=== PATIENT | male | born 1930 | race Caucasian/White ===

== ENCOUNTER → 2016-11-02 | Outpatient (CLI) | payer MEDICARE, BC ==
--- NOTE | 2016-11-02 15:44 | XR ---
EXAMINATION TYPE: XR chest 2V DATE OF EXAM: 11/02/2016 3:38 PM COMPARISON: 05/23/2016 TECHNIQUE: PA and lateral views submitted. HISTORY: Cough and wheezing FINDINGS: The lungs are clear and there is no pneumothorax, pleural effusion, or focal pneumonia. Granuloma wi thin the right upper lobe noted. Postsurgical change and cardiac device stable. Arthropathy of the sh oulders noted. Degenerative change and hypertrophic change of the spine. IMPRESSION: 1. No acute process.
== END ==
LOC: RADXRMAIN 15:16
PROVIDERS: ATTEND Family Medicine
DX: R06.00 Dyspnea, unspecified (principal)
CPT/HCPCS: 71020

== ENCOUNTER → 2016-11-30 | Outpatient (CLI) | payer MEDICARE, BC ==
--- NOTE | 2016-11-30 20:57 | US ---
EXAMINATION TYPE: US kidneys/renal and bladder DATE OF EXAM: 11/30/2016 4:38 PM COMPARISON: NONE CLINICAL HISTORY: N18.2 CHRONIC KIDNEY DISEASE. Chronic kidney disease, pt has no other complaints at this time EXAM MEASUREMENTS: Right Kidney: 9.0 x 4.1 x 3.9 cm Left Kidney: 9.0 x 3.7 x 3.8 cm Right Kidney there is cortical thinning with no evidence of hydronephrosis or nephrolithiasis. Stable 1.6 cm right renal cyst noted. Left Kidney: Cortical thinning with no evidence of hydronephrosis or nephrolithiasis. Bladder is anechoic. No definite wall thickening. Renal cortex is somewhat increased in echotexture. IMPRESSION: Correlate for chronic medical renal disease.
== END | disposition home or self-care (01) ==
LOC: RADUSWWP 16:21
PROVIDERS: ATTEND Internal Medicine Nephrology
DX: N18.2 Chronic kidney disease, stage 2 (mild) (principal)
CPT/HCPCS: 76770

== ENCOUNTER → 2017-04-05 | Outpatient (CLI) | payer MEDICARE, BC ==
--- NOTE | 2017-04-05 17:43 | CT ---
EXAMINATION TYPE: CT angio chest DATE OF EXAM: 04/05/2017 5:35 PM COMPARISON: 04/07/2013 HISTORY: Left sided chest pain. CT DLP: 543.00 mGycm Automated exposure control for dose reduction was used. CONTRAST: CTA scan of the thorax is performed with IV Contrast, patient injected with 65 mL of Visipaque 320, p ulmonary embolism protocol. There are 3-D post processed images. FINDINGS: There is irregular pleural thickening at the lung bases. There is extensive interstitial infiltrate in the mid and lower lung trujillo. There is no evidence of a pulmonary mass. There is a 1 cm calcified granuloma in the right right lower lobe. I see no filling defects in the pulmonary arteries. Thoracic aorta is atheromatous. There is aneurysm of the ascending aorta that measures 4.6 cm. There is no sign of dissection. There are no hilar masses. There is no mediastinal adenopathy.. There is s purring in the thoracic spine with kyphotic deformity. IMPRESSION: NO EVIDENCE OF PULMONARY EMBOLISM. EXTENSIVE PULMONARY FIBROTIC CHANGES. THORACIC AORTIC ANEURYSM. NO SIGNIFICANT CHANGE COMPARED TO OLD EXAM.
== END | disposition home or self-care (01) ==
LOC: RADCTMAIN 15:59
PROVIDERS: ATTEND Family Medicine
DX: J84.10 Pulmonary fibrosis, unspecified (principal); I71.2 Thoracic aortic aneurysm, without rupture
CPT/HCPCS: 82565; 84520; 71275; 36415; Q9967

== ENCOUNTER 2017-07-24 13:36 | Emergency (ER) | payer MEDICARE, BC ==
[2017-07-24] MEDS ORDERED: methylPREDNISolone SOD SUCCI 125 MG/2 ML VIAL IV STA (14:29)
[2017-07-24] MEDS ORDERED: ALBUTEROL NEBULIZED 2.5 MG/3 ML INHALATION STA (14:29)
[2017-07-24] MEDS ORDERED: IPRATROPIUM 0.5 MG/2.5 ML NEBU INHALATION STA (14:29)
--- NOTE | 2017-07-24 14:31 | ED ---
General Adult HPI - General Chief complaint: Shortness of Breath Stated complaint: SOB/cough Time Seen by Provider: 07/24/17 13:45 Source: patient, RN notes reviewed Mode of arrival: wheelchair Limitations: no limitations - History of Present Illness Initial comments: 86 yo with male history of CHF, COPD, CAD status post bypass and implantable defibrillator presents with 4 days of worsening cough and dyspnea. Patient denies central chest pain. States he occasionally has pain over his pacemaker site. No radiating chest pain. Patient denies significant lower extremity swelling. Denies any change in his medications. Denies fever. States his cough is occasionally productive of white sputum. - Related Data Home Medications Medication Instructions Recorded Confirmed Loratadine [Claritin] 10 mg PO DAILY 03/28/14 07/24/17 Magnesium Chloride [Slow-Mag] 64 mg PO HS 03/28/14 07/24/17 Montelukast [Singulair] 10 mg PO HS 03/28/14 07/24/17 Simvastatin [Zocor] 20 mg PO HS 03/28/14 07/24/17 Terazosin [Hytrin] 2 mg PO HS 03/28/14 07/24/17 Rivaroxaban [Xarelto] 15 mg PO DAILY@1300 12/26/14 07/24/17 Omeprazole [PriLOSEC] 20 mg PO AC-BRKFST 12/30/14 07/24/17 Cholecalciferol [Vitamin D3] 1,000 unit PO DAILY 07/24/17 07/24/17 Febuxostat [Uloric] 40 mg PO DAILY 07/24/17 07/24/17 Finasteride [Proscar] 5 mg PO DAILY 07/24/17 07/24/17 Metoprolol Succinate [Toprol XL] 50 mg PO BID 07/24/17 07/24/17 Spironolactone [Aldactone] 12.5 mg PO DAILY 07/24/17 07/24/17 Tamsulosin HCl [Flomax] 0.4 mg PO BID 07/24/17 07/24/17 Previous Rx's Medication Instructions Recorded Albuterol Inhaler [Ventolin Hfa 1 - 2 puff INHALATION Q4HR PRN #1 07/24/17 Inhaler] inhaler Azithromycin [Zithromax Z-pack] 0 mg PO DIRECTED #6 tab 07/24/17 predniSONE 50 mg PO DAILY #5 tab 07/24/17 Allergies Allergy/AdvReac Type Severity Reaction Status Date / Time No Known Allergies Allergy Verified 07/24/17 14:47 Review of Systems ROS Statement: Those systems with pertinent positive or pertinent negative responses have been documented in the HPI. ROS Other: All systems not noted in ROS Statement are negative. Past Medical History Past Medical History: Atrial Fibrillation, Coronary Artery Disease (CAD), Chest Pain / Angina, COPD, GERD/Reflux, Hearing Disorder / Deafness, Hyperlipidemia, Hypertension, Myocardial Infarction (ID), Pneumonia, Renal Disease, Sleep Apnea/ CPAP/BIPAP Additional Past Medical History / Comment(s): RENAL INSUFFICIENCY, TURNED IN 24HR URINE TODAY; OCC INCONT OF URINE; GOUT; LLE EDEMA - WEARS COMPRESSION STOCKINGS SINCE CAGB; LT Ear Growth Drained by Dr 11/2014. UNABLE TO USE CPAP MASK. BRUISES EASILY. PNEUMONIA 11/2014, CURRENTLY HAS A CONGESTED COUGH, INSTRUCTED TO CALL [facility] TO NOTIFY DR ROCKWELL TODAY. HAS PARATHYROID ADENOMA. AICD - [facility], REPROGRAMMED 11/30/14. Last Myocardial Infarction Date:: 2001 History of Any Multi-Drug Resistant Organisms: None Reported Past Surgical History: AICD, Coronary Bypass/CABG, Heart Catheterization With Stent, Hernia Repair, Orthopedic Surgery, Pacemaker Additional Past Surgical History / Comment(s): 4 Vessel CABG 2002. STENT 2001. HAS PINS IN RT ACHILLES. AICD/PACEMAKER, [facility]. Past Anesthesia/Blood Transfusion Reactions: No Reported Reaction Date of Last Stent Placement:: UNK Type of Cardiac Device: Permanent Pacemaker, AICD Device Placement Date:: 2007 Past Psychological History: No Psychological Hx Reported Smoking Status: Never smoker Past Alcohol Use History: None Reported Past Drug Use History: None Reported - Past Family History Father Family Medical History: Congestive Heart Failure (CHF), Diabetes Mellitus Additional Family Medical History / Comment(s): AT AGEG 66 FROM CHF Mother Family Medical History: COPD Additional Family Medical History / Comment(s): AT AGE FROM ANEURYSM Sister(s) Family Medical History: Cancer General Exam Limitations: no limitations General appearance: alert, in no apparent distress Head exam: Present: atraumatic, normocephalic Eye exam: Present: normal appearance, PERRL ENT exam: Present: normal exam Neck exam: Present: normal inspection. Absent: tenderness, meningismus Respiratory exam: Present: wheezes, prolonged expiratory. Absent: respiratory distress, rhonchi Cardiovascular Exam: Present: normal rhythm, bradycardia GI/Abdominal exam: Present: soft. Absent: distended, tenderness Extremities exam: Present: normal inspection. Absent: pedal edema Back exam: Present: normal inspection, full ROM Neurological exam: Present: alert, oriented X3. Absent: motor sensory deficit Psychiatric exam: Present: normal affect, normal mood Skin exam: Present: warm, dry, intact. Absent: cyanosis, diaphoretic Course Vital Signs 07/24/17 07/24/17 07/24/17 13:41 14:51 15:14 Temperature 99.0 F Pulse Rate 54 L 50 L 50 L Respiratory 22 Rate Blood Pressure 111/59 O2 Sat by Pulse 94 L Oximetry - Reevaluation(s) Reevaluation #1: 07/24/17 16:34 On reevaluation, patient is feeling better, cough improved. EKG Findings - EKG Comments: EKG Findings:: EKG shows atrial paced rhythm, left axis deviation, ventricular rate of 50, NV interval 196, QRS duration 120, QTC 410, no signs of ischemia Medical Decision Making - Medical Decision Making 86-year-old man with history of COPD, CAD status post CABG, and CKD presents with cough and dyspnea. Patient also states he's had a runny nose. On examination patient has diffuse end expiratory wheeze. Good air entry. Patient is given albuterol, Atrovent and steroids in emergency department. On reevaluation he is feeling better. Oxygenation saturation 95% on room air. Chest x-ray shows COPD, no focal pneumonia. White blood cell count 10.1 which is normal. Hemoglobin stable at 13.4. Potassium is borderline high at 5.2, although the patient has had borderline hyperkalemia for some time. Creatinine 1.93, AB baseline. EKG is nonischemic. Case is discussed with the patient's primary care physician Dr. Yadav. He is able to the patient on Wednesday for close follow-up. Patient is offered observation for continued treatment of COPD , patient Clines, stating he wishes to go home and follow-up with his primary care physician. - Lab Data Result diagrams: 07/24/17 14:00 07/24/17 14:00 Lab Results 07/24/17 07/24/17 07/24/17 Range/Units 14:00 14:00 14:00 WBC 10.1 (3.8-10.6) k/uL RBC 4.41 (4.30-5.90) m/uL Hgb 13.4 (13.0-17.5) gm/dL Hct 41.9 (39.0-53.0) % MCV 94.9 (80.0-100.0) fL MCH 30.3 (25.0-35.0) pg MCHC 31.9 (31.0-37.0) g/dL RDW 15.3 (11.5-15.5) % Plt Count 143 L (150-450) k/uL Neutrophils % 75 % Lymphocytes % 15 % Monocytes % 6 % Eosinophils % 2 % Basophils % 0 % Neutrophils # 7.6 (1.3-7.7) k/uL Lymphocytes # 1.6 (1.0-4.8) k/uL Monocytes # 0.6 (0-1.0) k/uL Eosinophils # 0.2 (0-0.7) k/uL Basophils # 0.0 (0-0.2) k/uL PT (9.0-12.0) sec INR (<1.2) APTT (22.0-30.0) sec Sodium 143 (137-145) mmol/L Potassium 5.2 H (3.5-5.1) mmol/L Chloride 112 H (98-107) mmol/L Carbon Dioxide 18 L (22-30) mmol/L Anion Gap 13 mmol/L BUN 45 H (9-20) mg/dL Creatinine 1.93 H (0.66-1.25) mg/dL Est GFR (MDRD) Af Amer 40 (>60 ml/min/1.73 sqM) Est GFR (MDRD) Non-Af 33 (>60 ml/min/1.73 sqM) Glucose 89 (74-99) mg/dL Calcium 9.4 (8.4-10.2) mg/dL Magnesium 1.9 (1.6-2.3) mg/dL Total Bilirubin 1.6 H (0.2-1.3) mg/dL AST 30 (17-59) U/L ALT 26 (21-72) U/L Alkaline Phosphatase 66 (38-126) U/L Total Creatine Kinase 227 H (55-170) U/L CK-MB (CK-2) 3.3 H* (0.0-2.4) ng/mL CK-MB (CK-2) Rel Index 1.5 Troponin I 0.042 H* (0.000-0.034) ng/mL NT-Pro-B Natriuret Pep pg/mL Total Protein 6.6 (6.3-8.2) g/dL Albumin 3.8 (3.5-5.0) g/dL 07/24/17 07/24/17 Range/Units 14:00 14:00 WBC (3.8-10.6) k/uL RBC (4.30-5.90) m/uL Hgb (13.0-17.5) gm/dL Hct (39.0-53.0) % MCV (80.0-100.0) fL MCH (25.0-35.0) pg MCHC (31.0-37.0) g/dL RDW (11.5-15.5) % Plt Count (150-450) k/uL Neutrophils % % Lymphocytes % % Monocytes % % Eosinophils % % Basophils % % Neutrophils # (1.3-7.7) k/uL Lymphocytes # (1.0-4.8) k/uL Monocytes # (0-1.0) k/uL Eosinophils # (0-0.7) k/uL Basophils # (0-0.2) k/uL PT 11.2 (9.0-12.0) sec INR 1.1 (<1.2) APTT 27.7 (22.0-30.0) sec Sodium (137-145) mmol/L Potassium (3.5-5.1) mmol/L Chloride (98-107) mmol/L Carbon Dioxide (22-30) mmol/L Anion Gap mmol/L BUN (9-20) mg/dL Creatinine (0.66-1.25) mg/dL Est GFR (MDRD) Af Amer (>60 ml/min/1.73 sqM) Est GFR (MDRD) Non-Af (>60 ml/min/1.73 sqM) Glucose (74-99) mg/dL Calcium (8.4-10.2) mg/dL Magnesium (1.6-2.3) mg/dL Total Bilirubin (0.2-1.3) mg/dL AST (17-59) U/L ALT (21-72) U/L Alkaline Phosphatase (38-126) U/L Total Creatine Kinase (55-170) U/L CK-MB (CK-2) (0.0-2.4) ng/mL CK-MB (CK-2) Rel Index Troponin I (0.000-0.034) ng/mL NT-Pro-B Natriuret Pep 1190 pg/mL Total Protein (6.3-8.2) g/dL Albumin (3.5-5.0) g/dL Disposition Clinical Impression: Acute exacerbation of chronic obstructive airways disease Disposition: HOME SELF-CARE Condition: Fair Instructions: COPD (Chronic Obstructive Pulmonary Disease) (ED) Additional Instructions: Please return to emergency department with worsening or changing symptoms Prescriptions: Albuterol Inhaler [Ventolin Hfa Inhaler] 1 - 2 puff INHALATION Q4HR PRN #1 inhaler PRN Reason: Shortness Of Breath Azithromycin [Zithromax Z-pack] 0 mg PO DIRECTED #6 tab predniSONE 50 mg PO DAILY #5 tab Referrals: Dg Yadav MD [Primary Care Provider] - 1-2 days Time of Disposition: 16:38
[2017-07-24 14:49] LABS: Basophils % (A) 0 %; CH 30.5; CHCM 32.4; Eosinophils # (A) 0.2 k/uL (0-0.7); Eosinophils % (A) 2 %; HCT 41.9 % (39.0-53.0); HDW 2.76; HGB 13.4 gm/dL (13.0-17.5); Luc # (Auto) 0.11; Luc % (Auto) 1; Lymphocytes # (A) 1.6 k/uL (1.0-4.8); Lymphocytes % (A) 15 %; MCH 30.3 pg (25.0-35.0); MCHC 31.9 g/dL (31.0-37.0); MCV 94.9 fL (80.0-100.0); Mean Platelet Volume 8.1; Monocytes # (A) 0.6 k/uL (0-1.0); Monocytes % (A) 6 %; Neutrophils # (A) 7.6 k/uL (1.3-7.7); Neutrophils % (A) 75 %; RBC 4.41 m/uL (4.30-5.90); RDW 15.3 % (11.5-15.5); WBC 10.1 k/uL (3.8-10.6); WBC (Perox) 9.87
[2017-07-24 15:00] LABS: INR 1.1 (<1.2); Partial Thromboplastin Time 27.7 sec (22.0-30.0); Prothrombin Time 11.2 sec (9.0-12.0)
[2017-07-24 15:04] LABS: Calcium 9.4 mg/dL (8.4-10.2); Magnesium 1.9 mg/dL (1.6-2.3); Potassium 5.2 mmol/L (3.5-5.1); Total Bilirubin 1.6 mg/dL (0.2-1.3); Total Protein 6.6 g/dL (6.3-8.2)
--- NOTE | 2017-07-24 15:20 | XR ---
EXAMINATION TYPE: XR chest 2V DATE OF EXAM: 07/24/2017 COMPARISON: 11/02/2016 HISTORY: Difficulty breathing TECHNIQUE: Frontal and lateral views of the chest are obtained. FINDINGS: There is no focal air space opacity, pleural effusion, or pneumothorax seen. Pulmonary hy perinflation and flattening of the diaphragms on the lateral image relates to underlying CPPD. The ca rdiac silhouette size is within normal limits. Post CABG changes are seen as well as left-sided cardi ac device. Extensive osseous demineralization and exaggerated thoracic kyphosis with multilevel degen erative changes of the thoracic spine are again noted, similar to the prior. Degenerative changes of the acromio clavicular joint and glenohumeral joints are also unchanged from the prior, moderate in d egree. IMPRESSION: No acute cardiopulmonary process. Radiographic sequela of COPD.
[2017-07-24 15:26] LABS: Creatine Kinase MB 3.3 ng/mL (0.0-2.4); Troponin I 0.042 ng/mL (0.000-0.034)
[2017-07-24 16:48] VITALS: BP 137/61; PULSE 57; RESP 18; TEMP 98.5
== END 2017-07-24 17:06 | disposition home or self-care (01) ==
LOC: EC 13:36
DX: J44.1 Chronic obstructive pulmonary disease with (acute) exacerbation (principal); E87.5 Hyperkalemia; R00.1 Bradycardia, unspecified; E78.5 Hyperlipidemia, unspecified; I11.0 Hypertensive heart disease with heart failure; I50.9 Heart failure, unspecified; I25.10 Atherosclerotic heart disease of native coronary artery without angina pectoris; I48.91 Unspecified atrial fibrillation; K21.9 Gastro-esophageal reflux disease without esophagitis; M10.9 Gout, unspecified; I25.2 Old myocardial infarction; Z79.01 Long term (current) use of anticoagulants; Z79.899 Other long term (current) drug therapy; Z86.79 Personal history of other diseases of the circulatory system; Z87.448 Personal history of other diseases of urinary system; Z95.0 Presence of cardiac pacemaker; Z82.5 Family history of asthma and other chronic lower respiratory diseases
CPT/HCPCS: 36415; 94640; 93005; 83880; 80053; 82550; 82553; 83735; 84484; 85025; 85610; 85730; 71020; 99285; 96374; J2930

== ENCOUNTER → 2017-11-02 | Day surgery (SDC) | payer MEDICARE, BC ==
[2017-10-29 14:52] VITALS: BMI 29.0
[~2017-11-02] MED LIST: ACETAMINOPHEN TAB 325 MG TAB PO PRN; LACTATED RINGERS 1,000 ML IV SCH; LIDOCAINE 1% INJ 10MG/ML (20 ML MDV) SQ ONE; MIDAZOLAM 2 MG/2 ML VIAL ONE; MORPHINE SULFATE 4 MG/ML SYRINGE IV PRN; ONDANSETRON 4 MG/2 ML VIAL IVP PRN; SODIUM CHLORIDE 0.9% 1,000 ML IV SCH; ceFAZolin 1,000 MG in SODIUM CHLORIDE 0.9% IRRIGATIO 250 ML IRRIGATION ONE; ceFAZolin IN SWFI 2 GM/20 ML SYRINGE IVP ONE; fentaNYL (PF) 50 MCG/ML 2 ML AMP ONE
[2017-11-02 06:18] VITALS: TEMP 98.3
--- NOTE | 2017-11-02 08:49 | P.PCN ---
Date of Procedure: 11/02/17 Preoperative Diagnosis: Battery depletion Postoperative Diagnosis: The same Procedure(s) Performed: Generator replacement of AICD Description of Procedure: HISTORY: This is a 86-year-old gentleman with history of ischemic cardiomyopathy , CHF class III with history of AICD implantation. Patient device has reached the RACHEL. Patient is advised to have a elective replacement CONSENT: I have discussed the risks and benefits as related to the above mentioned procedure and both sedation/analgesia as well as necessary blood product administration. The patient has indicated understanding and acceptance of the risks of the procedure discussed. PROCEDURE: Patient was brought to the lab in a fasting state. Patient was given IV Versed and fentanyl for sedation. The skin over the existing pulse generator was infiltrated with lidocaine. An incision was made in the skin and was deepened until the pectoral fascia was exposed. Hemostasis was obtained. The existing pulse generator was pulled out of the pocket. The leads were disconnected and were checked for thresholds. Conscious Sedation: Administered by department of anesthesia Duration 37 minutes THRESHOLDS: ATRIAL:. The minimum patient threshold was 0.6 at pulse width of 0.5 with impedance of 350 ohms. The P-wave is 1.4 VENTRICULAR: The minimum patient threshold was high at 5 at pulse width of 0.5. The impedance is 530 R-wave: 11.7 THE LEADS: ATRIAL:. The atrial lead is manufactured by [employer]. Model number is [id number]. And this serial number is [id number] VENTRICULAR: This is manufactured by [employer]. Model number is 1581. And the serial number is [id number] THE EXPLANTED DEVICE:. This is manufactured by [employer]. Model number is capital [id number] and the serial number is [id number] THE NEW DEVICE:. This is manufactured by [employer]. Model number is capital CD [id number]. Serial number is [id number]. The leads were then connected to a new pulse generator. Pacemaker seems to function normally. The pocket was irrigated with antibiotics. The pocket was closed in the usual fashion. Pectoral fascia was closed with 2-0 Prolene, the subcutaneous tissue was closed with 3-0 Prolene and the skin was closed with 4- 0 Prolene. Patient tolerated the procedure well . Patient will be monitored on the telemetry unit for 2-3 hours. If stable patient be discharged home later today. DFT testing: Not performed Sheldon programming: Programmed to DDDR mode. Base rate is 50 maximal tracking rate is 120. Tachycardia programming: The VT 1 zone is programmed to a rate of 1 76 bpm with therapies of ATP 3, ATP 3, 20 J shock followed by 30 J shocks 2. The VT 2 zone is programmed to a rate of 206. Therapies are programmed to ATP 2, 20 J shock, 30 J shock, followed by 36 6 J shock 2. The VF zone is programmed to a rate of 2 40 bpm. The therapies are programmed to ATP 1 followed by 30 J shock , that is 6 J shock 1 followed by 36 J shocks 4 PLAN: Patient will be monitored for the next few hours. If stable patient be discharged home. Patient will continue home medications except holding Xarelto until Tomorrow. FALLOW UP: Follow-up with Dr. VC Corrales in one week
[2017-11-02 10:43] VITALS: RESP 16
[2017-11-02 11:34] VITALS: BP 114/59; PULSE 55
== END | disposition home or self-care (01) ==
LOC: CATHEP 05:58
PROVIDERS: ATTEND Internal Medicine Cardiovascular Disease
DX: Z45.02 Encounter for adjustment and management of automatic implantable cardiac defibrillator (principal); I25.5 Ischemic cardiomyopathy; I25.2 Old myocardial infarction; I48.0 Paroxysmal atrial fibrillation; I11.0 Hypertensive heart disease with heart failure; I50.22 Chronic systolic (congestive) heart failure; Z95.1 Presence of aortocoronary bypass graft; E78.5 Hyperlipidemia, unspecified; G47.33 Obstructive sleep apnea (adult) (pediatric); N19 Unspecified kidney failure; M10.9 Gout, unspecified; J44.9 Chronic obstructive pulmonary disease, unspecified; K21.9 Gastro-esophageal reflux disease without esophagitis; Z98.61 Coronary angioplasty status; Z79.01 Long term (current) use of anticoagulants; Z79.899 Other long term (current) drug therapy
CPT/HCPCS: 33263; C1721; J2250; J0690 ×2; J2001; J3010

== ENCOUNTER → 2018-07-26 | Outpatient (CLI) | payer MEDICARE, BC ==
--- NOTE | 2018-07-26 15:59 | XR ---
EXAMINATION TYPE: XR chest 2V DATE OF EXAM: 07/26/2018 COMPARISON: Prior chest x-ray 07/24/2017 HISTORY: COPD TECHNIQUE: Frontal and lateral views of the chest are obtained. FINDINGS: No significant interval change. Patient is post median sternotomy. Intracardiac defibrilla tor leads are stable. No evident airspace disease, pneumothorax, or pleural effusion. Patient is rota bro. Calcified granuloma present in the right lower lobe. Increased AP diameter chest with flattening the hemidiaphragms compatible with COPD. There are coronary calcifications. IMPRESSION: No acute cardiopulmonary process.
== END | disposition home or self-care (01) ==
LOC: RADXRMAIN 15:25
PROVIDERS: ATTEND Family Medicine
DX: J44.9 Chronic obstructive pulmonary disease, unspecified (principal)
CPT/HCPCS: 71046

== ENCOUNTER → 2019-03-10 | Outpatient (CLI) | payer MEDICARE, BC ==
--- NOTE | 2019-03-10 14:16 | CT ---
EXAMINATION TYPE: CT chest wo con DATE OF EXAM: 03/10/2019 COMPARISON: 08/11/2017 HISTORY: shortness of breath CT DLP: [address] of the chest was performed with lung and mediastinal window settings submitted. The la ck of contrast limits evaluation of the vascular, mediastinal and parenchymal structures including th e upper abdomen. LUNGS: The lungs are clear and free of infiltrate. No atelectasis. Calcified granuloma right lower l obe. Hyperinflation compatible with COPD. No pulmonary nodule or mass is detected. No pleural effusi on. No CT evidence of interstitial lung disease. MEDIASTINUM/CAROLE: Ascending thoracic aortic aneurysm is stable at 4.2 cm AP dimension. Atheromatous c hanges of the thoracic aorta. Coronary artery calcifications. Changes of median sternotomy. The heart is mildly enlarged. No evidence for mediastinal mass. No lymph nodes greater than 1cm. UPPER ABDOMEN: No significant abnormality is seen. OTHER: No significant other abnormality. IMPRESSION: 1. COPD. No evidence for focal infiltrate or suspicious nodule or mass. 2. Stable ascending thoracic aortic aneurysm.
== END | disposition home or self-care (01) ==
LOC: RADCTMAIN 13:27
PROVIDERS: ATTEND Family Medicine
DX: J44.9 Chronic obstructive pulmonary disease, unspecified (principal)
CPT/HCPCS: 71250

== ENCOUNTER 2019-06-18 09:49 | Emergency (ER) | payer MEDICARE, BC ==
[2019-06-18 10:03] VITALS: TEMP 97.6
--- NOTE | 2019-06-18 10:20 | ED ---
Fall HPI - General Chief Complaint: Fall Stated Complaint: Fall Time Seen by Provider: 06/18/19 10:04 Source: patient Mode of arrival: wheelchair - History of Present Illness Initial Comments: Patient is an 88-year-old male with extensive cardiac history presenting to the emergency department with a chief complaint of a fall. Patient reports he woke up this morning attempted to take off his GMS, as he stood up and try to take several steps he became lightheaded and fell back hitting one hand on the bed frame and the other on the cabinet. Patient reports pain in bilateral shoulders. Patient also reports he noticed that he was bleeding from his left forearm. Currently patient reports mild lightheadedness but no dizziness. Patient denies a headache but does report mild cervical tenderness. Patient denies any blurry vision, , one-sided weakness or paresthesias. Patient isn't on blood thinners. Patient has an implanted defibrillator. - Related Data Home Medications Medication Instructions Recorded Confirmed Loratadine [Claritin] 10 mg PO 1200 03/28/14 10/29/17 Montelukast [Singulair] 10 mg PO HS 03/28/14 11/02/17 Simvastatin [Zocor] 20 mg PO HS 03/28/14 11/02/17 Terazosin [Hytrin] 2 mg PO HS 03/28/14 11/02/17 Rivaroxaban [Xarelto] 15 mg PO 1200 12/26/14 11/02/17 Omeprazole [PriLOSEC] 20 mg PO AC-BRKFST 12/30/14 11/02/17 Cholecalciferol [Vitamin D3] 1,000 unit PO 1200 07/24/17 11/02/17 Febuxostat [Uloric] 40 mg PO HS 07/24/17 11/02/17 Finasteride [Proscar] 5 mg PO 1200 07/24/17 11/02/17 Metoprolol Succinate [Toprol XL] 25 mg PO HS 07/24/17 11/02/17 Spironolactone [Aldactone] 12.5 mg PO HS 07/24/17 11/02/17 Tamsulosin HCl [Flomax] 0.4 mg PO BID 07/24/17 11/02/17 Fluticasone/Umeclidin/Vilanter 1 inhalation INHALATION DAILY 10/29/17 10/29/17 [Trelegy Ellipta 100-62.5-25] Magnesium Chloride [Slow Mag] 64 mg PO HS 10/29/17 11/02/17 Previous Rx's Medication Instructions Recorded Cephalexin [Keflex] 500 mg PO Q8HR #10 cap 11/02/17 Allergies Allergy/AdvReac Type Severity Reaction Status Date / Time smoke Allergy Dyspnea Uncoded 06/18/19 10:03 Review of Systems ROS Statement: Those systems with pertinent positive or pertinent negative responses have been documented in the HPI. ROS Other: All systems not noted in ROS Statement are negative. Past Medical History Past Medical History: Cancer, COPD, GERD/Reflux, Hearing Disorder / Deafness, Hyperlipidemia, Osteoarthritis (OA), Pneumonia, Prostate Disorder, Renal Disease, Sleep Apnea/CPAP/BIPAP, Thyroid Disorder Additional Past Medical History / Comment(s): GOUT; not currently using CPAP, see Dr Sanchez H&P, edema left lower leg, bruises easily, hx skin cancer Last Myocardial Infarction Date:: 2001 History of Any Multi-Drug Resistant Organisms: None Reported Past Surgical History: AICD, Coronary Bypass/CABG, Heart Catheterization With Stent, Hernia Repair, Orthopedic Surgery, Pacemaker Additional Past Surgical History / Comment(s): 4 Vessel CABG 2002. 2 STENTS 2001. HAS 2 PINS IN RT ACH[place]ES. parathyroid surgery, AICD/PACEMAKER, [facility]. 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, recent biopsy left ear, maximus cataracts Past Anesthesia/Blood Transfusion Reactions: No Reported Reaction Date of Last Stent Placement:: UNK Type of Cardiac Device: Permanent Pacemaker, AICD Device Placement Date:: unknown Past Psychological History: No Psychological Hx Reported Smoking Status: Never smoker Past Alcohol Use History: None Reported Past Drug Use History: None Reported - Past Family History Father Family Medical History: Congestive Heart Failure (CHF), Diabetes Mellitus Additional Family Medical History / Comment(s): AT AGEG 66 FROM CHF Mother Family Medical History: COPD Additional Family Medical History / Comment(s): AT AGE FROM ANEURYSM Sister(s) Family Medical History: Cancer General Exam Limitations: no limitations General appearance: alert, in no apparent distress Head exam: Present: atraumatic, normocephalic, normal inspection. Absent: other (Negative Howell sign, negative periorbital ecchymosis, negative hemotympanum.) Eye exam: Present: normal appearance, PERRL, EOMI. Absent: scleral icterus, conjunctival injection, nystagmus Pupils: Present: normal accommodation ENT exam: Present: normal exam, normal oropharynx (No oral trauma), mucous membranes moist, TM's normal bilaterally, normal external ear exam Neck exam: Present: normal inspection, tenderness (Mild paraspinal tenderness.), full ROM Respiratory exam: Present: normal lung sounds bilaterally. Absent: wheezes Cardiovascular Exam: Present: regular rate, normal rhythm, normal heart sounds GI/Abdominal exam: Present: soft. Absent: distended, tenderness, guarding, rebound Extremities exam: Present: full ROM, tenderness (Bilateral shoulder tenderness), normal capillary refill, other (+2 ulnar and radial pulses bilaterally.). Absent: normal inspection (Abrasions on bilateral forearms) Back exam: Present: normal inspection, full ROM Neurological exam: Present: alert, oriented X3, CN II-XII intact Psychiatric exam: Present: normal affect, normal mood Skin exam: Present: warm, intact, normal color. Absent: rash Course Vital Signs 06/18/19 09:59 Temperature 97.6 F Pulse Rate 87 Respiratory 22 Rate Blood Pressure 130/76 O2 Sat by Pulse 97 Oximetry Medical Decision Making - Medical Decision Making Patient is an 88-year-old male presenting to the emergency department with a chief complaint of fall. Patient woke up this morning as he attempted to take his first few steps he became dizzy and fell backwards causing an abrasion to both of his arms and hitting his head. A physical examination there is a small abrasion on the left forearm and a large abrasion on the right forearm. No injury noted to the head. Patient neurovascularly intact. Chest x-ray is indicative of cardiomegaly and vascular congestion. No acute pathologies det ected. CT of the brain and C-spine shows no evidence of acute intracranial abnormality. 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 C-spine shows no acute osseous lesions but there is severe degenerative changes. Bilateral shoulder x- rays are unremarkable. Labs are unremarkable. Coags are elevated however patient is on blood thinners. Patient lives alone in a house. Patient reports that he is comfortable going home. Patient reports that he feels good right now and is ready go home. Patient reports that he is able to take care of himself. Patient denies any dizziness or lightheadedness at this moment. Vitals are stable. Both abrasions were cleaned and wrapped with Kerlix. Patient advised to follow with primary care. Strict return parameters were thoroughly discussed with patient was understanding and agreeable. Case discussed physician. - Lab Data Result diagrams: 06/18/19 11:16 06/18/19 11:16 Lab Results 06/18/19 06/18/19 06/18/19 Range/Units 11:16 11:16 11:16 WBC 9.1 (3.8-10.6) k/uL RBC 3.93 L (4.30-5.90) m/uL Hgb 11.9 L (13.0-17.5) gm/dL Hct 37.5 L (39.0-53.0) % MCV 95.6 (80.0-100.0) fL MCH 30.4 (25.0-35.0) pg MCHC 31.9 (31.0-37.0) g/dL RDW 14.2 (11.5-15.5) % Plt Count 168 (150-450) k/uL Neutrophils % 86 % Lymphocytes % 7 % Monocytes % 5 % Eosinophils % 1 % Basophils % 0 % Neutrophils # 7.8 H (1.3-7.7) k/uL Lymphocytes # 0.7 L (1.0-4.8) k/uL Monocytes # 0.5 (0-1.0) k/uL Eosinophils # 0.0 (0-0.7) k/uL Basophils # 0.0 (0-0.2) k/uL PT 12.4 H (9.0-12.0) sec INR 1.2 H (<1.2) APTT 35.2 H (22.0-30.0) sec Sodium 142 (137-145) mmol/L Potassium 4.0 (3.5-5.1) mmol/L Chloride 111 H (98-107) mmol/L Carbon Dioxide 21 L (22-30) mmol/L Anion Gap 10 mmol/L BUN 20 (9-20) mg/dL Creatinine 1.29 H (0.66-1.25) mg/dL Est GFR (CKD-EPI)AfAm 58 (>60 ml/min/1.73 sqM) Est GFR (CKD-EPI)NonAf 50 (>60 ml/min/1.73 sqM) Glucose 112 H (74-99) mg/dL Calcium 9.2 (8.4-10.2) mg/dL Total Bilirubin 1.1 (0.2-1.3) mg/dL AST 24 (17-59) U/L ALT 19 L (21-72) U/L Alkaline Phosphatase 82 (38-126) U/L Total Protein 6.3 (6.3-8.2) g/dL Albumin 3.5 (3.5-5.0) g/dL Disposition Clinical Impression: Fall, Abrasion Disposition: HOME SELF-CARE Condition: Stable Instructions (If sedation given, give patient instructions): Abrasion (ED) Additional Instructions: Please follow up with primary care. Please return to emergency department if symptoms worsen. Is patient prescribed a controlled substance at d/c from ED?: No Referrals: Dg Yadav MD [Primary Care Provider] - 1-2 days Time of Disposition: 12:27
--- NOTE | 2019-06-18 10:48 | CT ---
EXAMINATION TYPE: CT brain clark silverman DATE OF EXAM: 06/18/2019 COMPARISON: Previous study dated 04/07/2013 HISTORY: Fall today. Patient denies head injury CT DLP: 1428.5 mGycm Automated exposure control for dose reduction was used. TECHNIQUE: CT scan of the head and cervical spine are performed without contrast. FINDINGS: BRAIN: There are generalized changes of sulcal prominence and ventriculomegaly, compatible with atrop hic change. There is diffuse periventricular white matter lucency, compatible with white matter ische darryl change. There is evidence of an old right middle cerebral artery infarct. There is also been a pr evious posterior left parietal infarct. This is unchanged from previous. There is no acute focal lesi on, mass effect or midline shift identified. I do not see evidence of intracranial blood. Visualized portions of the paranasal sinuses and mastoids are clear. The bony calvarium is intact. IMPRESSION: 1. NO ACUTE INTRACRANIAL ABNORMALITY. 2. EVIDENCE OF PREVIOUS RIGHT MIDDLE CEREBRAL ARTERY INFARCT WELL A LEFT POSTERIOR PARIETAL INF ARCT. 3. DEGENERATIVE CHANGE. CERVICAL SPINE: There is diffuse groundglass opacity throughout the visualized portions of the lungs. This may be on the basis of alveolitis. Congestive heart failure could have a similar appearance. Prevertebral soft tissues are normal. Vertebral body height and alignment are maintained. Atlantoaxial relationships are normal. There is d iffuse degenerative disc disease and hypertrophic spondylosis as well as uncovertebral joint disease with relative sparing of C2-3. There is facet arthropathy on the right at C2-3 and bilaterally at C3- 4 and C4-5. There is facet arthropathy on the left at C5-6. There is bilateral intervertebral foramin al narrowing at C3-4, worse on the right than the left. There is mild, bilateral intervertebral elenita inal narrowing at C4-5 and C5-6. No definite protrusion is seen. No fractures are seen. IMPRESSION: 1. NO ACUTE OSSEOUS LESION. 2. FAIRLY SEVERE DEGENERATIVE CHANGE.
--- NOTE | 2019-06-18 10:50 | XR ---
EXAMINATION TYPE: XR shoulder complete BILAT , 6 VIEWS DATE OF EXAM ORDERED: 06/18/2019 HISTORY: fall, pain. COMPARISON: None. FINDINGS: There is severe hypertrophic change in the AC joints bilaterally. There is remodeling rose ge in the left glenohumeral joint. No fracture or dislocation is seen. IMPRESSION: 1. NO ACUTE OSSEOUS LESION. 2. MODERATELY SEVERE DEGENERATIVE CHANGE.
--- NOTE | 2019-06-18 11:30 | XR ---
EXAMINATION TYPE: XR chest 2V DATE OF EXAM: 06/18/2019 HISTORY: fall. REFERENCE: Previous study dated 07/26/2018. FINDINGS: There has been a midline sternotomy. There is a bipolar pacemaker place on the left. The heart is enlarged. There is vascular congestion without miguel edema. Pleural spaces are clear. IMPRESSION: CARDIOMEGALY AND VASCULAR CONGESTION.
[2019-06-18 11:34] LABS: Basophils % (A) 0 %; Eosinophils % (A) 1 %; HCT 37.5 % (39.0-53.0); HGB 11.9 gm/dL (13.0-17.5); Lymphocytes # (A) 0.7 k/uL (1.0-4.8); Lymphocytes % (A) 7 %; MCH 30.4 pg (25.0-35.0); MCHC 31.9 g/dL (31.0-37.0); MCV 95.6 fL (80.0-100.0); Mean Platelet Volume 6.9; Monocytes # (A) 0.5 k/uL (0-1.0); Monocytes % (A) 5 %; Neutrophils # (A) 7.8 k/uL (1.3-7.7); Neutrophils % (A) 86 %; Platelet Count 168 k/uL (150-450); RBC 3.93 m/uL (4.30-5.90); RDW 14.2 % (11.5-15.5); WBC 9.1 k/uL (3.8-10.6)
[2019-06-18 11:41] LABS: Albumin 3.5 g/dL (3.5-5.0); Calcium 9.2 mg/dL (8.4-10.2); Total Bilirubin 1.1 mg/dL (0.2-1.3); Total Protein 6.3 g/dL (6.3-8.2)
[2019-06-18 11:42] LABS: INR 1.2 (<1.2); Partial Thromboplastin Time 35.2 sec (22.0-30.0); Prothrombin Time 12.4 sec (9.0-12.0)
[2019-06-18 13:05] VITALS: BP 137/81; PULSE 72; RESP 16
== END 2019-06-18 13:02 | disposition home or self-care (01) ==
LOC: EC 09:49
DX: S50.812A Abrasion of left forearm, initial encounter (principal); S50.811A Abrasion of right forearm, initial encounter; I51.7 Cardiomegaly; J44.9 Chronic obstructive pulmonary disease, unspecified; K21.9 Gastro-esophageal reflux disease without esophagitis; E78.5 Hyperlipidemia, unspecified; I25.2 Old myocardial infarction; G47.30 Sleep apnea, unspecified; Z79.01 Long term (current) use of anticoagulants; Z79.899 Other long term (current) drug therapy; Z91.09 Other allergy status, other than to drugs and biological substances; Z95.1 Presence of aortocoronary bypass graft; Z95.0 Presence of cardiac pacemaker; Z95.5 Presence of coronary angioplasty implant and graft; W18.09XA Striking against other object with subsequent fall, initial encounter
CPT/HCPCS: 36415; 70450; 71046; 72125; 80053; 85025; 85610; 85730; 99284

== ENCOUNTER → 2019-06-22 | Outpatient (CLI) | payer MEDICARE, BC ==
--- NOTE | 2019-06-23 06:58 | US ---
EXAMINATION TYPE: US carotid duplex BILAT DATE OF EXAM: 06/22/2019 COMPARISON: NONE CLINICAL HISTORY: I63.9 CVA. CVA EXAM MEASUREMENTS: RIGHT: Peak Systolic Velocity (PSV) cm/sec ----- Right CCA: 68.4 ----- Right ICA: 73.3 ----- Right ECA: 77.3 ICA/CCA ratio: 1.1 RIGHT: End Diastole cm/sec ----- Right CCA: 21.1 ----- Right ICA: 14.7 ----- Right ECA: 8.7 LEFT: Peak Systolic Velocity (PSV) cm/sec ----- Left CCA: 84.2 ----- Left ICA: 107.6 ----- Left ECA: 79.6 ICA/CCA ratio: 1.3 LEFT: End Diastole cm/sec ----- Left CCA: 17.5 ----- Left ICA: 22.6 ----- Left ECA: 9.2 VERTEBRALS (direction of flow): Right Vertebral: Antegrade Left Vertebral: Antegrade Rhythm: Arrhythmia Bilateral intimal thickening, plaque bilateral bulb, no elevated velocities, no significant stenosis. IMPRESSION: 1. Mild degree of grayscale atheromatous plaquing with no sonographically evident hemodynamically si gnificant stenosis within either visualized carotid arterial system. 2. Incidentally noted cardiac arrhythmia. Correlate with EKG. Criteria for Assigning % of Stenosis / Diameter reduction (Estimation based on the indirect measurements of the internal carotid artery velocities (ICA PSV). 1. Normal (no stenosis)=ICA PSV < 125 cm/s: ratio < 2.0: ICA EDV<40 cm/s. 2. Less than 50% stenosis=ICA PSV < 125 cm/s: ratio < 2.0: ICA EDV<40 cm/s. 3. 50 to 69% stenosis=ICA PSV of 125 to 230 cm/s: ration 2.0 ? 4.0: ICA EDV 40-100 cm/s. 4. Greater than 70% stenosis to near occlusion= ICA PSV > 230 cm/s: ratio > 4.0: ICA EDV > 100 cm/s. 5. Near occlusion= ICA PSV velocities may be low or undetectable: variable ratio and ICA EDV. 6. Total occlusion=unable to detect flow.
== END | disposition home or self-care (01) ==
LOC: RADUSMAIN 16:15
PROVIDERS: ATTEND Family Medicine
DX: I65.23 Occlusion and stenosis of bilateral carotid arteries (principal)
CPT/HCPCS: 93880

== ENCOUNTER 2019-08-24 12:49 | Emergency (ER) | payer MEDICARE, BC ==
[2019-08-24] MEDS ORDERED: SODIUM CHLORIDE 0.9% 1,000 ML IV STA (13:25)
[2019-08-24] MEDS ORDERED: ONDANSETRON 4 MG/2 ML VIAL IVP STA (13:44)
[2019-08-24 13:56] LABS: Basophils # (A) 0.1 k/uL (0-0.2); Basophils % (A) 1 %; Eosinophils % (A) 0 %; HCT 37.9 % (39.0-53.0); HGB 11.9 gm/dL (13.0-17.5); Lymphocytes # (A) 0.5 k/uL (1.0-4.8); Lymphocytes % (A) 6 %; MCH 29.3 pg (25.0-35.0); MCHC 31.5 g/dL (31.0-37.0); Mean Platelet Volume 8.2; Monocytes # (A) 0.5 k/uL (0-1.0); Monocytes % (A) 5 %; Neutrophils # (A) 8.3 k/uL (1.3-7.7); Neutrophils % (A) 88 %; Platelet Count 170 k/uL (150-450); RBC 4.07 m/uL (4.30-5.90); RDW 14.2 % (11.5-15.5); WBC 9.4 k/uL (3.8-10.6)
[2019-08-24 13:59] LABS: Appearance,Urine Clear (Clear); Bilirubin,Urine Negative (Negative); Blood,Urine Negative (Negative); Color,Urine Yellow; Glucose,Urine (UA) Negative (Negative); Ketones,Urine Negative (Negative); Leukocyte Esterase,Urine Negative (Negative); Nitrite,Urine Negative (Negative); Protein,Urine Negative (Negative); Specific Gravity,Urine 1.015 (1.001-1.035); Urobilinogen,Urine <2.0 mg/dL (<2.0)
[2019-08-24 14:12] LABS: Albumin 3.6 g/dL (3.5-5.0); Calcium 9.3 mg/dL (8.4-10.2); INR 1.1 (<1.2); Magnesium 2.1 mg/dL (1.6-2.3); Partial Thromboplastin Time 30.4 sec (22.0-30.0); Potassium 4.9 mmol/L (3.5-5.1); Prothrombin Time 11.2 sec (9.0-12.0); Total Bilirubin 1.1 mg/dL (0.2-1.3); Total Protein 6.4 g/dL (6.3-8.2)
--- NOTE | 2019-08-24 14:16 | XR ---
EXAMINATION TYPE: XR chest 2V DATE OF EXAM: 08/24/2019 COMPARISON: Chest x-ray June 18, 2019 HISTORY: Chest pain and weakness after fall injury. TECHNIQUE: Frontal and lateral views of the chest are obtained. FINDINGS: Overlying sternal wires and mediastinal clips. There is background chronic parenchymal rose ge without suspicious focal air space opacity, pleural effusion, or pneumothorax seen. The cardiac s ilhouette size remains enlarged with multi lead pacemaker/AICD and atherosclerotic thoracic aorta. The osseous structures remain demineralized. Degenerative change both shoulders. Somewhat low lung vo lumes redemonstrated. IMPRESSION: Overall stable findings, chronic changes along with cardiomegaly and low lung volumes wi thout new suspicious acute pulmonary process.
--- NOTE | 2019-08-24 14:17 | XR ---
EXAMINATION TYPE: XR shoulder complete LT DATE OF EXAM: 08/24/2019 CLINICAL HISTORY: Left shoulder pain after fall injury. TECHNIQUE: Three views of the left shoulder are obtained. COMPARISON: Bilateral shoulder xray June 18, 2019 FINDINGS: Osseous structures redemonstrated demineralized. There is no acute fracture/dislocation armando dent in the left shoulder. Severe narrowing with capsular calcifications acromioclavicular joint is r edemonstrated. Glenohumeral joint shows moderate to severe narrowing and moderate inferior medial hu meral head spurring. Partial visualization of overlying pacemaker noted. Visualized ribs are intact. IMPRESSION: There is no acute fracture or dislocation in the left shoulder. No significant change fr om prior.
--- NOTE | 2019-08-24 14:32 | ED ---
Fall HPI - General Chief Complaint: Fall Stated Complaint: Fall Time Seen by Provider: 08/24/19 13:05 Source: patient, RN notes reviewed, old records reviewed Mode of arrival: ambulatory - History of Present Illness Initial Comments: Patient is an 88-year-old male who lives alone. Patient reports that today while trying to get out of bed this morning around 9 AM he slipped, and fell. He reports that he landed on his left shoulder, anterior chest wall and ribs. He reports that he laid on the ground for 3 hours until someone from visiting [employer] [facility] was able to hear him yelling. Reports he was unable to get up at that time. Patient states he's been trying to stay hydrated just feels generally weak. He denies any head injury or with the fall and states that he h ad no loss conscious. Denies any neck pain. He does report some discomfort in his mid back. Patient states that prior to this fall and last one was in June. - Related Data Home Medications Medication Instructions Recorded Confirmed Loratadine [Claritin] 10 mg PO 1200 03/28/14 10/29/17 Montelukast [Singulair] 10 mg PO HS 03/28/14 11/02/17 Simvastatin [Zocor] 20 mg PO HS 03/28/14 11/02/17 Terazosin [Hytrin] 2 mg PO HS 03/28/14 11/02/17 Rivaroxaban [Xarelto] 15 mg PO 1200 12/26/14 11/02/17 Omeprazole [PriLOSEC] 20 mg PO AC-BRKFST 12/30/14 11/02/17 Cholecalciferol [Vitamin D3] 1,000 unit PO 1200 07/24/17 11/02/17 Febuxostat [Uloric] 40 mg PO HS 07/24/17 11/02/17 Finasteride [Proscar] 5 mg PO 1200 07/24/17 11/02/17 Metoprolol Succinate [Toprol XL] 25 mg PO HS 07/24/17 11/02/17 Spironolactone [Aldactone] 12.5 mg PO HS 07/24/17 11/02/17 Tamsulosin HCl [Flomax] 0.4 mg PO BID 07/24/17 11/02/17 Fluticasone/Umeclidin/Vilanter 1 inhalation INHALATION DAILY 10/29/17 10/29/17 [Trelegy Ellipta 100-62.5-25] Magnesium Chloride [Slow Mag] 64 mg PO HS 10/29/17 11/02/17 Previous Rx's Medication Instructions Recorded Cephalexin [Keflex] 500 mg PO Q8HR #10 cap 11/02/17 Allergies Allergy/AdvReac Type Severity Reaction Status Date / Time smoke Allergy Dyspnea Uncoded 08/24/19 12:54 Review of Systems ROS Statement: Those systems with pertinent positive or pertinent negative responses have been documented in the HPI. ROS Other: All systems not noted in ROS Statement are negative. Past Medical History Past Medical History: Cancer, COPD, GERD/Reflux, Hearing Disorder / Deafness, Hyperlipidemia, Osteoarthritis (OA), Pneumonia, Prostate Disorder, Renal Disease, Sleep Apnea/CPAP/BIPAP, Thyroid Disorder Additional Past Medical History / Comment(s): GOUT; not currently using CPAP, see Dr Sanchez H&P, edema left lower leg, bruises easily, hx skin cancer Last Myocardial Infarction Date:: 2001 History of Any Multi-Drug Resistant Organisms: None Reported Past Surgical History: AICD, Coronary Bypass/CABG, Heart Catheterization With Stent, Hernia Repair, Orthopedic Surgery, Pacemaker Additional Past Surgical History / Comment(s): 4 Vessel CABG 2002. 2 STENTS 2001. HAS 2 PINS IN RT ACHILLES. parathyroid surgery, AICD/PACEMAKER, [facility]. 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, recent biopsy left ear, maximus cataracts Past Anesthesia/Blood Transfusion Reactions: No Reported Reaction Date of Last Stent Placement:: UNK Type of Cardiac Device: Permanent Pacemaker, AICD Device Placement Date:: unknown Past Psychological History: No Psychological Hx Reported Smoking Status: Never smoker Past Alcohol Use History: None Reported Past Drug Use History: None Reported - Past Family History Father Family Medical History: Congestive Heart Failure (CHF), Diabetes Mellitus Additional Family Medical History / Comment(s): AT AGEG 66 FROM CHF Mother Family Medical History: COPD Additional Family Medical History / Comment(s): AT AGE FROM ANEURYSM Sister(s) Family Medical History: Cancer General Exam - General Exam Comments Initial Comments: 88 year old male, no distress. Limitations: no limitations General appearance: alert, in no apparent distress Head exam: Present: atraumatic, normocephalic, normal inspection Eye exam: Present: normal appearance, PERRL, EOMI. Absent: scleral icterus, conjunctival injection, periorbital swelling ENT exam: Present: normal exam, mucous membranes moist Neck exam: Present: normal inspection. Absent: tenderness, meningismus, lymphadenopathy Respiratory exam: Present: normal lung sounds bilaterally. Absent: respiratory distress, wheezes, rales, rhonchi, stridor Cardiovascular Exam: Present: regular rate, normal rhythm, normal heart sounds, other (Contusion over left shoulder. Evidence of defiblator, no bruising on that time. ). Absent: systolic murmur, diastolic murmur, rubs, gallop, clicks GI/Abdominal exam: Present: soft, normal bowel sounds. Absent: distended, tenderness, guarding, rebound, rigid Extremities exam: Present: normal inspection, full ROM, normal capillary refill, other ( is a bruise over her left anterior shoulder.). Absent: tenderness, pedal edema, joint swelling, calf tenderness Back exam: Present: normal inspection Neurological exam: Present: alert, oriented X3, CN II-XII intact Course Vital Signs 08/24/19 12:50 Temperature 97.8 F Pulse Rate 58 L Respiratory 20 Rate Blood Pressure 116/97 O2 Sat by Pulse 96 Oximetry Medical Decision Making - Medical Decision Making any sexual male presents after slipping out of bed, he states that he laid on the ground for a few hours before someone was able to come help him. At this time Patient does appear to be somewhat dehydrated states he has not been drinking anything today. Lips are purged and Patient is given fluids. He does have an elevated BUN. Mildly elevated lactic acid. Urine samples taken for infection. Chest x-ray and shoulder x-ray are negative for any acute process. No fractures noted. This has some small contusions over his shoulder. He was able to ambulate to and from the bathroom without significant difficulty. I did discuss case with Dr. Degroot. Discussed possibility of admitting the Patient however Patient is ambulating without difficulty and no significant pain he could be stable for discharge and outpatient follow-up. He states he is agreeable to going home as he does have I appointments tomorrow that he would like to make. I discussed that he can return if there is any worsening signs or symptoms or any further falls. Discussed with family Patient may benefit from life alert. - Lab Data Result diagrams: 08/24/19 13:40 12/19/19 13:40 Lab Results 08/24/19 08/24/19 08/24/19 Range/Units 13:40 13:40 13:40 WBC 9.4 (3.8-10.6) k/uL RBC 4.07 L (4.30-5.90) m/uL Hgb 11.9 L (13.0-17.5) gm/dL Hct 37.9 L (39.0-53.0) % MCV 93.0 (80.0-100.0) fL MCH 29.3 (25.0-35.0) pg MCHC 31.5 (31.0-37.0) g/dL RDW 14.2 (11.5-15.5) % Plt Count 170 (150-450) k/uL Neutrophils % 88 % Lymphocytes % 6 % Monocytes % 5 % Eosinophils % 0 % Basophils % 1 % Neutrophils # 8.3 H (1.3-7.7) k/uL Lymphocytes # 0.5 L (1.0-4.8) k/uL Monocytes # 0.5 (0-1.0) k/uL Eosinophils # 0.0 (0-0.7) k/uL Basophils # 0.1 (0-0.2) k/uL PT (9.0-12.0) sec INR (<1.2) APTT (22.0-30.0) sec Sodium 141 (137-145) mmol/L Potassium 4.9 (3.5-5.1) mmol/L Chloride 111 H (98-107) mmol/L Carbon Dioxide 20 L (22-30) mmol/L Anion Gap 10 mmol/L BUN 51 H (9-20) mg/dL Creatinine 1.75 H (0.66-1.25) mg/dL Est GFR (CKD-EPI)AfAm 40 (>60 ml/min/1.73 sqM) Est GFR (CKD-EPI)NonAf 35 (>60 ml/min/1.73 sqM) Glucose 114 H (74-99) mg/dL Plasma Lactic Acid Ephraim 2.1 H* (0.7-2.0) mmol/L Calcium 9.3 (8.4-10.2) mg/dL Magnesium 2.1 (1.6-2.3) mg/dL Total Bilirubin 1.1 (0.2-1.3) mg/dL AST 28 (17-59) U/L ALT 13 (4-49) U/L Alkaline Phosphatase 70 (38-126) U/L Creatine Kinase 170 (55-170) U/L Total Protein 6.4 (6.3-8.2) g/dL Albumin 3.6 (3.5-5.0) g/dL Urine Color Urine Appearance (Clear) Urine pH (5.0-8.0) Ur Specific Guy (1.001-1.035) Urine Protein (Negative) Urine Glucose (UA) (Negative) Urine Ketones (Negative) Urine Blood (Negative) Urine Nitrite (Negative) Urine Bilirubin (Negative) Urine Urobilinogen (<2.0) mg/dL Ur Leukocyte Esterase (Negative) 08/24/19 08/24/19 Range/Units 13:40 13:40 WBC (3.8-10.6) k/uL RBC (4.30-5.90) m/uL Hgb (13.0-17.5) gm/dL Hct (39.0-53.0) % MCV (80.0-100.0) fL MCH (25.0-35.0) pg MCHC (31.0-37.0) g/dL RDW (11.5-15.5) % Plt Count (150-450) k/uL Neutrophils % % Lymphocytes % % Monocytes % % Eosinophils % % Basophils % % Neutrophils # (1.3-7.7) k/uL Lymphocytes # (1.0-4.8) k/uL Monocytes # (0-1.0) k/uL Eosinophils # (0-0.7) k/uL Basophils # (0-0.2) k/uL PT 11.2 (9.0-12.0) sec INR 1.1 (<1.2) APTT 30.4 H (22.0-30.0) sec Sodium (137-145) mmol/L Potassium (3.5-5.1) mmol/L Chloride (98-107) mmol/L Carbon Dioxide (22-30) mmol/L Anion Gap mmol/L BUN (9-20) mg/dL Creatinine (0.66-1.25) mg/dL Est GFR (CKD-EPI)AfAm (>60 ml/min/1.73 sqM) Est GFR (CKD-EPI)NonAf (>60 ml/min/1.73 sqM) Glucose (74-99) mg/dL Plasma Lactic Acid Ephraim (0.7-2.0) mmol/L Calcium (8.4-10.2) mg/dL Magnesium (1.6-2.3) mg/dL Total Bilirubin (0.2-1.3) mg/dL AST (17-59) U/L ALT (4-49) U/L Alkaline Phosphatase (38-126) U/L Creatine Kinase (55-170) U/L Total Protein (6.3-8.2) g/dL Albumin (3.5-5.0) g/dL Urine Color Yellow Urine Appearance Clear (Clear) Urine pH 5.0 (5.0-8.0) Ur Specific Guy 1.015 (1.001-1.035) Urine Protein Negative (Negative) Urine Glucose (UA) Negative (Negative) Urine Ketones Negative (Negative) Urine Blood Negative (Negative) Urine Nitrite Negative (Negative) Urine Bilirubin Negative (Negative) Urine Urobilinogen <2.0 (<2.0) mg/dL Ur Leukocyte Esterase Negative (Negative) 08/24/19 14:[address] rhythm with prolonged AV conduction with PVCs. Ventricular rate 56 beats per minute. Intervals 306 most seconds. She anabaptism is 134 ms. QT QTc is 478/461 ms. No acute elevation. - Radiology Data Radiology results: report reviewed No acute fracture dislocation left shoulder. No significant change from prior. Chest x-ray shows overall stable findings, chronic changes along with cardiomegaly and low lung volumes without any suspicious acute pulmonary process . Disposition Clinical Impression: Fall, Shoulder contusion, Contusion of rib on left side Disposition: HOME SELF-CARE Condition: Good Instructions (If sedation given, give patient instructions): Fall Prevention for Older Adults (ED), Rib Contusion (ED) Additional Instructions: Patient should rest remain hydrated. Drink plenty of fluids. Motrin or Tylenol for pain. Ice the areas that are sore. Follow-up with your primary care physician. Is patient prescribed a controlled substance at d/c from ED?: No Referrals: Dg Yadav MD [Primary Care Provider] - 1-2 days Time of Disposition: 16:20
[2019-08-24 17:52] VITALS: BP 105/50; PULSE 63; RESP 18; TEMP 98.2
== END 2019-08-24 17:40 | disposition home or self-care (01) ==
LOC: EC 12:49
DX: S40.012A Contusion of left shoulder, initial encounter (principal); S20.212A Contusion of left front wall of thorax, initial encounter; E86.0 Dehydration; R79.89 Other specified abnormal findings of blood chemistry; J44.9 Chronic obstructive pulmonary disease, unspecified; K21.9 Gastro-esophageal reflux disease without esophagitis; E78.5 Hyperlipidemia, unspecified; M19.90 Unspecified osteoarthritis, unspecified site; G47.30 Sleep apnea, unspecified; E07.9 Disorder of thyroid, unspecified; M10.9 Gout, unspecified; N42.9 Disorder of prostate, unspecified; Z79.01 Long term (current) use of anticoagulants; Z79.51 Long term (current) use of inhaled steroids; Z79.899 Other long term (current) drug therapy; Z91.048 Other nonmedicinal substance allergy status; Z95.1 Presence of aortocoronary bypass graft; Z95.810 Presence of automatic (implantable) cardiac defibrillator; Z95.5 Presence of coronary angioplasty implant and graft; Z98.890 Other specified postprocedural states; Z99.89 Dependence on other enabling machines and devices; Z85.828 Personal history of other malignant neoplasm of skin; W06.XXXA Fall from bed, initial encounter; Y92.003 Bedroom of unspecified non-institutional (private) residence as the place of occurrence of the external cause
CPT/HCPCS: 36415; 93005; 80053; 82550; 83605; 83735; 85025; 85610; 85730; 81003; 73030; 71046; 99284; 96374; 96361; J2405

== ENCOUNTER 2019-08-30 11:05 | Inpatient (IN) | payer MEDICARE, BC ==
[2019-08-30] MEDS ORDERED: DIPH,PERTUS(ACELL)TETVAC-LF 0.5 ML VIAL IM ONE (12:15)
--- NOTE | 2019-08-30 12:23 | ED ---
General Adult HPI - General Chief complaint: Fall Stated complaint: Fall Time Seen by Provider: 08/30/19 11:15 Source: patient, RN notes reviewed, old records reviewed Mode of arrival: ambulatory Limitations: no limitations - History of Present Illness Initial comments: This is an 88-year-old male who presents to the emergency department because he fell last evening. Patient states he was about to step up on the stairs any loss and fell backwards and hit the left side of his head. Patient states he did not lose consciousness he was not days. Patient states he does have some pain in the left occipital parietal region and there was some bleeding in that area. Patient states she does not know when his last tetanus was. Patient states he does also has some left-sided neck pain. Patient also complains of left sided rib pain. Patient also has had some bruising to the left hip though he states he has full range of motion of that hip. Patient denies any knee pain or ankle pain or foot pain. Patient denies any arm pain and hand pain or wrist pain. Patient states he is on a blood thinner Xarelto. - Related Data Home Medications Medication Instructions Recorded Confirmed Loratadine [Claritin] 10 mg PO 1200 03/28/14 10/29/17 Montelukast [Singulair] 10 mg PO HS 03/28/14 11/02/17 Simvastatin [Zocor] 20 mg PO HS 03/28/14 11/02/17 Terazosin [Hytrin] 2 mg PO HS 03/28/14 11/02/17 Rivaroxaban [Xarelto] 15 mg PO 1200 12/26/14 11/02/17 Omeprazole [PriLOSEC] 20 mg PO AC-BRKFST 12/30/14 11/02/17 Cholecalciferol [Vitamin D3] 1,000 unit PO 1200 07/24/17 11/02/17 Febuxostat [Uloric] 40 mg PO HS 07/24/17 11/02/17 Finasteride [Proscar] 5 mg PO 1200 07/24/17 11/02/17 Metoprolol Succinate [Toprol XL] 25 mg PO HS 07/24/17 11/02/17 Spironolactone [Aldactone] 12.5 mg PO HS 07/24/17 11/02/17 Tamsulosin HCl [Flomax] 0.4 mg PO BID 07/24/17 11/02/17 Fluticasone/Umeclidin/Vilanter 1 inhalation INHALATION DAILY 10/29/17 10/29/17 [Trelegy Ellipta 100-62.5-25] Magnesium Chloride [Slow Mag] 64 mg PO HS 10/29/17 11/02/17 Previous Rx's Medication Instructions Recorded Cephalexin [Keflex] 500 mg PO Q8HR #10 cap 11/02/17 Allergies Allergy/AdvReac Type Severity Reaction Status Date / Time smoke Allergy Dyspnea Uncoded 08/24/19 12:54 Review of Systems ROS Statement: Those systems with pertinent positive or pertinent negative responses have been documented in the HPI. ROS Other: All systems not noted in ROS Statement are negative. Past Medical History Past Medical History: Coronary Artery Disease (CAD), Cancer, COPD, GERD/Reflux, Hearing Disorder / Deafness, Hyperlipidemia, Osteoarthritis (OA), Pneumonia, Prostate Disorder, Renal Disease, Sleep Apnea/CPAP/BIPAP, Thyroid Disorder Additional Past Medical History / Comment(s): GOUT; not currently using CPAP, see Dr Sanchez H&P, edema left lower leg, bruises easily, hx skin cancer Last Myocardial Infarction Date:: 2001 History of Any Multi-Drug Resistant Organisms: None Reported Past Surgical History: AICD, Coronary Bypass/CABG, Heart Catheterization With Stent, Hernia Repair, Orthopedic Surgery, Pacemaker Additional Past Surgical History / Comment(s): 4 Vessel CABG 2002. 2 STENTS 2001. HAS 2 PINS IN RT A[place]ES. parathyroid surgery, AICD/PACEMAKER, [facility]. 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, recent biopsy left ear, maximus cataracts Past Anesthesia/Blood Transfusion Reactions: No Reported Reaction Date of Last Stent Placement:: UNK Type of Cardiac Device: Permanent Pacemaker, AICD Device Placement Date:: unknown Past Psychological History: No Psychological Hx Reported Smoking Status: Never smoker Past Alcohol Use History: None Reported Past Drug Use History: None Reported - Past Family History Father Family Medical History: Congestive Heart Failure (CHF), Diabetes Mellitus Additional Family Medical History / Comment(s): AT AGEG 66 FROM CHF Mother Family Medical History: COPD Additional Family Medical History / Comment(s): AT AGE FROM ANEURYSM Sister(s) Family Medical History: Cancer General Exam - General Exam Comments Initial Comments: GENERAL: Patient is well-developed and well-nourished. Patient is nontoxic and well- hydrated and is in mild distress. ENT: Neck is soft and supple. No significant lymphadenopathy is noted. Oropharynx is clear. Moist mucous membranes. Neck has full range of motion without eliciting any pain. EYES: The sclera were anicteric and conjunctiva were pink and moist. Extraocular movements were intact and pupils were equal round and reactive to light. Eyelids were unremarkable. PULMONARY: Unlabored respirations. Good breath sounds bilaterally. No audible rales rhonchi or wheezing was noted. CARDIOVASCULAR: There is a regular rate and rhythm without any murmurs gallops or rubs. Patient has left-sided rib pain. ABDOMEN: Soft and nontender with normal bowel sounds. No palpable organomegaly was noted. There is no palpable pulsatile mass. SKIN: Skin is clear with no lesions or rashes and otherwise unremarkable. Patient has a large hematoma to the left hip. There is a laceration to the scalp in the occipital parietal region NEUROLOGIC: Patient is alert and oriented x3. Cranial nerves II through XII are grossly intact. Motor and sensory are also intact. Normal speech, volume and content. Symmetrical smile. MUSCULOSKELETAL: Normal extremities with adequate strength and full range of motion. LYMPHATICS: No significant lymphadenopathy is noted PSYCHIATRIC: Normal psychiatric evaluation. Limitations: no limitations Course Vital Signs 08/30/19 11:13 Temperature 97.7 F Pulse Rate 91 Respiratory 18 Rate Blood Pressure 129/79 O2 Sat by Pulse 92 L Oximetry Medical Decision Making - Medical Decision Making CT of the brain and C-spine show no acute abnormality. CT of the chest abdomen pelvis shows 3 rib fractures on the left 2 of which show multiple areas of fracture. I will begin and spoke with the patient and he did not feel comfortable going home. I spoke with Dr. Dukes he agreed to admit the patient admitted the patient I consult the medicine as well. Patient had a laceration to the left parietal occipital region of his scalp however it had been approximately 21 hours since he had fallen and at this time the wound was already healing site did not do any further closing. Patient did receive a tetanus. Disposition Clinical Impression: Fall, Multiple rib fractures, Scalp laceration Disposition: ADMITTED IP TO THIS HOSP Referrals: Dg Yadav MD [Primary Care Provider] - 1-2 days Time of Disposition: 13:30
--- NOTE | 2019-08-30 13:05 | CT ---
EXAMINATION TYPE: CT brain clark wo con DATE OF EXAM: 08/30/2019 COMPARISON: 06/18/2019 HISTORY: 88-year-old male with trauma, pain, Fall CT DLP: 1008 mGycm Automated exposure control for dose reduction was used. Technique: Examination of the head was done in axial plane without intravenous contrast. Coronal and sagittal reconstructions performed. CT of the cervical spine was obtained in axial plane without intravenous injection of contrast mater ial. Coronal and sagittal reformatted images were obtained from the axial views for evaluation of f ractures, spinal alignment and canal. FINDINGS: Head: There is no evidence of acute intracranial hemorrhage, acute ischemic changes, mass, mass-effect, or extra-axial fluid collection. There is no effacement of cerebral sulci or basal subarachnoid cister ns. There is no hydrocephalus. There is no midline shift. Damon-white matter distinction is preserv ed. Moderate generalized supratentorial volume loss is redemonstrated as well as old right frontal lobe i nfarct and smaller right posterior parietal and left parietal infarcts. No calvarial fracture. Mild mucosal thickening ethmoid air cells and maxillary sinuses. Mastoid air c ells are pneumatized. Cervical spine: No craniocervical junction, predental space widening, or prevertebral soft tissue swelling. Degenerat veronika changes of the C1 dens articulation. Some thickening and calcification along the transverse ligam ent. Moderate to advanced discogenic degenerative change at multiple levels as well as hypertrophic facet and uncovertebral joint degenerative changes redemonstrated. Alignment is maintained. There is no acute fracture seen of the cervical spine. Moderate multilevel neural foraminal stenoses are present throughout. Sagittal and coronal reformatted images confirm above findings. COMBINED IMPRESSION: 1. 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 N o acute intracranial abnormality seen. 2. Similar moderate to advanced multilevel spondylotic changes in the cervical spine without malalign ment or acute fracture.
--- NOTE | 2019-08-30 13:18 | CT ---
EXAMINATION TYPE: CT ChestAbdPelvis wo con DATE OF EXAM: 08/30/2019 COMPARISON: Chest 03/10/2019 HISTORY: 88-year-old male with trauma, chest and abdominal pain and hip pain after Fall TECHNIQUE: Contiguous axial scanning of the chest, abdomen, and pelvis without IV contrast. Coronal a nd sagittal reconstructions performed. CT DLP: 1319 mGycm Automated exposure control for dose reduction was used. FINDINGS: Chest: Left anterior chest wall AICD generator with right atrial and right ventricular leads. Lack of IV contrast limits assessment of the mediastinal and hilar and vascular structures. The heart is enlarged, slightly increased from 03/10/2019. Median sternotomy wires are present with pos t-CABG changes. Proximal arch measures up to 4.5 cm versus 4.3 cm on 03/10/2019. Moderate metastatic arch calcification s with shortness of breath anatomy. No definite thoracic lymphadenopathy. There are small effusions and posterior bibasilar opacity now present. Extensive breathing motion art ifacts are also prominent areas of atelectasis. Fractures of the left lateral fifth, sixth, and seventh ribs. The fifth and sixth rib fractures are s egmental. ABDOMEN: Lack of IV contrast limits assessment of the solid abdominal viscera, lymph nodes, and vascular struc tures. Noncontrast appearance of the liver, adrenal glands, left kidney, spleen, and pancreas show no gross abnormality. Small gallstones are demonstrated. A 1.4 cm hypodensity within the right kidney inadequately characterized on this noncontrast study, pr obable cyst. Moderate prostatic calcifications abdominal aorta. Upper abdominal aorta mildly aneurysmal up to 3.3 cm. No dilated small bowel, free fluid, or free air. Scattered mild stool burden. Left-sided clonic diver ticulosis. There is a moderate-sized left inguinal hernia containing a segment of nonobstructed proxi mal sigmoid colon. No mesenteric or retroperitoneal lymphadenopathy identified. Pelvis: Bladder partially distended. There is soft tissue measuring up to 4.8 x 4.6 cm projecting into the ba se of the bladder. Multiple pelvic phleboliths. No abnormal fluid collection in the pelvis. No pelvic lymphadenopathy seen. Bones: Osteopenia. Age. Moderate degenerative change of both hips. Additional degenerative change of the SI joints and advanced degenerative changes throughout the lumbar spine. Grade 1 anterolisthesis at L3-L 4 and L4-L5. IMPRESSION: 1. FRACTURES OF THE LEFT LATERAL FIFTH, SIXTH, AND SEVENTH RIBS. THE FIFTH AND SIXTH RIB FRACTURES AR E SEGMENTAL FRACTURES. 2. LACK OF IV CONTRAST DECREASES SENSITIVITY FOR DETECTION OF VASCULAR AND SOLID VISCERAL INJURY. NO DEFINITE ADDITIONAL ACUTE TRAUMATIC SEQUELAE IDENTIFIED. 3. CARDIOMEGALY PROGRESSED FROM 03/10/2019 WITH NEW SMALL EFFUSIONS. CORRELATE FOR EARLY DECOMPENSATING CHF. 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 4. ADDITIONAL PROMINENT POSTERIOR BASILAR OPACITIES COULD REPRESENT PROMINENT AREAS OF ATELECTASIS VE RSUS INFECTIOUS/ASPIRATION PNEUMONITIS. CLINICALLY CORRELATE. 5. MODERATE-SIZED LEFT INGUINAL HERNIA CONTAINING A SHORT SEGMENT NONOBSTRUCTIVE PROXIMAL SIGMOID COL ON. DISTAL COLONIC DIVERTICULOSIS. 6. SOFT TISSUE MEASURING 4.8 BY 4.6 CM PROTRUDING INTO THE INFERIOR BLADDER SUSPECTED TO REPRESENT BP H. PROSTATE CANCER IS THE ALTERNATIVE CONSIDERATION. CLINICALLY CORRELATE.
[2019-08-30] MEDS ORDERED: MORPHINE SULFATE 2 MG/ML SYRINGE IVP STA (13:28)
[2019-08-30] MEDS ORDERED: SODIUM CHLORIDE 0.9% 1,000 ML IV ONE (13:30)
[2019-08-30 21:37] LABS: Basophils % (A) 0 %; Eosinophils # (A) 0.2 k/uL (0-0.7); Eosinophils % (A) 3 %; HCT 35.3 % (39.0-53.0); HGB 11.1 gm/dL (13.0-17.5); Lymphocytes % (A) 12 %; MCH 29.4 pg (25.0-35.0); MCHC 31.4 g/dL (31.0-37.0); MCV 93.5 fL (80.0-100.0); Mean Platelet Volume 7.4; Monocytes # (A) 0.6 k/uL (0-1.0); Monocytes % (A) 8 %; Neutrophils # (A) 5.9 k/uL (1.3-7.7); Neutrophils % (A) 76 %; Platelet Count 196 k/uL (150-450); RBC 3.78 m/uL (4.30-5.90); RDW 14.4 % (11.5-15.5); WBC 7.8 k/uL (3.8-10.6)
[2019-08-30 21:47] LABS: INR 1.1 (<1.2); Partial Thromboplastin Time 30.5 sec (22.0-30.0)
[2019-08-30] MEDS: HYDROmorphone 0.5 MG/0.5 ML SYRINGE IVP PRN (21:47)
[2019-08-30] MEDS: IPRATROPIUM-ALBUTEROL 3 ML NEB INHALATION SCH (21:52)
[2019-08-30 22:03] LABS: Albumin 3.2 g/dL (3.5-5.0); Calcium 8.7 mg/dL (8.4-10.2); Potassium 4.7 mmol/L (3.5-5.1); Total Bilirubin 0.7 mg/dL (0.2-1.3); Total Protein 5.9 g/dL (6.3-8.2)
[2019-08-30] MEDS: DOXAZOSIN 2 MG TAB PO SCH (22:05)
[2019-08-30] MEDS: ATORVASTATIN 10 MG TAB PO SCH (22:05)
[2019-08-30] MEDS: TAMSULOSIN 0.4 MG CAP.ER.24H PO SCH (22:05)
--- NOTE | 2019-08-30 23:38 | CONS ---
CONSULTATION 88-year-old white male admitted to the hospital with left 5th, 6 and 7th rib fractures segmental in nature after having a fall at home. He is in severe pain at this time. 06/15. He is lying on his right side with a pillow under his left arm. He apparently fell backwards and his left side of his head fell backwards. He did not lose consciousness. This is 24 hours ago. He had some bleeds left occipital parietal region for which stitches were placed in the emergency room. HOME MEDICINES: At home include Claritin, Singulair, Zocor, Hytrin, Xarelto, Prilosec, Uloric, Proscar, Toprol-XL, Aldactone, Flomax, trilogy inhaler, Slow-Mag allergies smoke 14- point review of system as mentioned above, otherwise negative. S vital signs reviewed. Cardiac is O2 sats in 94% on 2 L cardiovascular S1, S2. Irregular regular rhythm. Lungs show rales at the bases. Hematology negative Homans'. Psych fair mood and affect. Neurologic: Alert and oriented x3. FAMILY HISTORY: Father diabetes mellitus, heart failure. Mother, COPD. Sister cancer. PAST SURGICAL HISTORY: Surgeries AICD, pacemaker, skin cancer, left ear, parathyroid surgery, permanent pacemaker, AICD. ASSESSMENT: Fall, occipital head contusion, scalp laceration and multiple rib fractures, left side, admitted for pain control. Breathing control. Restart home medicines. Updrafts will be used instead of spirometry. Pain control. Thank you for the consult. MARCO A / JAONNEN: [id number] /
[2019-08-30] MEDS: IPRATROPIUM-ALBUTEROL 3 ML NEB INHALATION PRN (23:54)
[2019-08-31] MEDS: IPRATROPIUM-ALBUTEROL 3 ML NEB INHALATION SCH ×4 (08:04→20:04)
[2019-08-31 08:43] LABS: Basophils % (A) 0 %; Eosinophils # (A) 0.3 k/uL (0-0.7); Eosinophils % (A) 3 %; HCT 33.7 % (39.0-53.0); HGB 10.9 gm/dL (13.0-17.5); Lymphocytes # (A) 1.6 k/uL (1.0-4.8); Lymphocytes % (A) 20 %; MCH 30.1 pg (25.0-35.0); MCHC 32.4 g/dL (31.0-37.0); MCV 92.9 fL (80.0-100.0); Mean Platelet Volume 7.9; Monocytes # (A) 0.4 k/uL (0-1.0); Monocytes % (A) 5 %; Neutrophils # (A) 5.6 k/uL (1.3-7.7); Neutrophils % (A) 71 %; Platelet Count 222 k/uL (150-450); RBC 3.62 m/uL (4.30-5.90); RDW 14.6 % (11.5-15.5); WBC 7.9 k/uL (3.8-10.6)
[2019-08-31 08:55] LABS: Albumin 3.1 g/dL (3.5-5.0); Calcium 8.8 mg/dL (8.4-10.2); Potassium 4.8 mmol/L (3.5-5.1); Total Protein 5.7 g/dL (6.3-8.2)
[2019-08-31] MEDS ORDERED: LACTATE PO SCH (09:00)
[2019-08-31] MEDS ORDERED: MAGNESIUM PO SCH (09:00)
[2019-08-31] MEDS ORDERED: RIVAROXABAN 15 MG TAB PO SCH (09:00)
[2019-08-31] MEDS: HYDROcodone/APAP 5-325MG 1 EACH TAB PO PRN ×4 (09:02→20:46)
[2019-08-31] MEDS: TAMSULOSIN 0.4 MG CAP.ER.24H PO SCH ×2 (09:03→19:54)
[2019-08-31] MEDS: LORATADINE 10 MG TAB PO SCH (09:03)
[2019-08-31] MEDS: MONTELUKAST 10 MG TAB PO SCH (09:03)
[2019-08-31] MEDS: CHOLECALCIFEROL 1,000 UNIT TAB PO SCH (09:03)
[2019-08-31] MEDS: METOPROLOL SUCCINATE (ER) 25 MG TAB.ER.24H PO SCH (09:04)
[2019-08-31] MEDS: ALLOPURINOL 300 MG TAB PO SCH (09:04)
[2019-08-31] MEDS: PANTOPRAZOLE 40 MG TABLET PO SCH (09:04)
[2019-08-31] MEDS: FINASTERIDE 5 MG TAB PO SCH (09:04)
--- NOTE | 2019-08-31 10:23 | P.GSHP ---
History of Present Illness H&P Date: 08/31/19 Chief Complaint: fall CHIEF COMPLAINT: Fall HISTORY OF PRESENT ILLNESS: 88 year old male who presented to the emergency room secondary to a fall. Patient reports falling backwards and hitting his head when he landed. He is unsure if he lost consciousness. Patient was recently evaluated in the emergency room on 08/24/2019 for a fall at that time as well. Patient examined this morning at the bedside with Dr. Gil. Patient reports left sided rib/chest pain. Denies abdominal pain. Denies nausea or vomiting. Tolerating diet. Denies headache or vision changes. PAST MEDICAL HISTORY: See list. PAST SURGICAL HISTORY: See list. SOCIAL HISTORY: No illicit drug use. REVIEW OF SYSTEMS: CONSTITUTIONAL: Denies fever or chills. HEENT: Denies blurred vision, vision changes, or eye pain. Denies hemoptysis CARDIOVASCULAR: Reports left-sided chest pain with deep inspiration. RESPIRATORY: No shortness of breath. Reports left-sided chest pain with deep inspiration. GASTROINTESTINAL: Refer to HPI for pertinent findings HEMATOLOGIC: Denies bleeding disorders. GENITOURINARY: Denies any blood in urine. SKIN: Denies pruitis. Denies rash. PHYSICAL EXAM: VITAL SIGNS: Reviewed. GENERAL: Well-developed in no acute distress. HEENT: No sclera icterus. Extraocular movements grossly intact. Moist buccal mucosa. Head is normocephalic. ABDOMEN: Soft. Nondistended. Nontender. . NEUROLOGIC: Alert and oriented. Cranial nerves II through XII grossly intact. SKIN: Multiple bruises. Laceration to left scalp. No active bleeding. LABORATORY DATA: Laboratory data on admission reveals white count 7.8. Hemoglobin 11.1. Platelet count 196. Sodium 144. Potassium 4.7. BUN 34. Creatinine 1.52. IMAGIN. CT head cervical spine: No evidence of acute intracranial hemorrhage, acute ischemic changes, mass effect or extra-axial fluid collection. No midline shift. Moderate generalized supratentorial volume loss is redemonstrated as well as old right frontal lobe infarct and smaller right posterior parietal and left parietal infarcts. Similar moderate to advanced multilevel spondylitic changes of the cervical spine without malalignment or acute fracture. 2. CT chest abdomen and pelvis: Fractures of the left lateral fifth and sixth and seventh ribs. Cardiomegaly with small effusions. 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 Additional prominent posterior basilar opacities could represent prominent areas of atelectasis versus infectious/aspiration pneumonitis. Moderate left-sided inguinal hernia containing a short segment of nonobstructive proximal sigmoid colon. Distal colonic diverticulosis. ASSESSMENT: 1. Trauma, status post fall 2. Left rib fractures, 5, 6, 7 3. Recent ER visit for fall, 08/24/19 4. Left scalp laceration 5. half-way anticoagulation use, on Xarelto PLAN: Pulmonary on consult for rib fractures Incentive spirometry encouraged Pain control Activity as tolerated. PT/OT Hold Xarelto today due to traumatic fall Case management/social work on consult for discharge planning. Likely will need ECF placement due to multiple recent falls Nurse practitioner note has been reviewed by physician. Signing provider agrees with the documented findings, assessment, and plan of care. Past Medical History Past Medical History: Coronary Artery Disease (CAD), Cancer, COPD, GERD/Reflux, Hearing Disorder / Deafness, Hyperlipidemia, Osteoarthritis (OA), Pneumonia, Prostate Disorder, Renal Disease, Sleep Apnea/CPAP/BIPAP, Thyroid Disorder Additional Past Medical History / Comment(s): GOUT; not currently using CPAP, see Dr Sanchez H&P, edema left lower leg, bruises easily, hx skin cancer Last Myocardial Infarction Date:: 2001 History of Any Multi-Drug Resistant Organisms: None Reported Past Surgical History: AICD, Coronary Bypass/CABG, Heart Catheterization With St ent, Hernia Repair, Orthopedic Surgery, Pacemaker Additional Past Surgical History / Comment(s): 4 Vessel CABG 2002. 2 STENTS 2001. HAS 2 PINS IN RT ACHILLES. parathyroid surgery, AICD/PACEMAKER, [facility]. 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, recent biopsy left ear, maximus cataracts Past Anesthesia/Blood Transfusion Reactions: No Reported Reaction Date of Last Stent Placement:: UNK Type of Cardiac Device: Permanent Pacemaker, AICD Device Placement Date:: unknown Past Psychological History: No Psychological Hx Reported Smoking Status: Never smoker Past Alcohol Use History: None Reported Past Drug Use History: None Reported - Past Family History Father Family Medical History: Congestive Heart Failure (CHF), Diabetes Mellitus Additional Family Medical History / Comment(s): AT AGEG 66 FROM CHF Mother Family Medical History: COPD Additional Family Medical History / Comment(s): AT AGE FROM ANEURYSM Sister(s) Family Medical History: Cancer Medications and Allergies Home Medications Medication Instructions Recorded Confirmed Type Loratadine [Claritin] 10 mg PO DAILY 03/28/14 08/30/19 History Montelukast [Singulair] 10 mg PO DAILY 03/28/14 08/30/19 History Terazosin [Hytrin] 2 mg PO HS 03/28/14 08/30/19 History Rivaroxaban [Xarelto] 15 mg PO DAILY 12/26/14 08/30/19 History Omeprazole [PriLOSEC] 20 mg PO DAILY 12/30/14 08/30/19 History Cholecalciferol [Vitamin D3] 1,000 unit PO DAILY 07/24/17 08/30/19 History Finasteride [Proscar] 5 mg PO DAILY 07/24/17 08/30/19 History Metoprolol Succinate [Toprol XL] 25 mg PO DAILY 07/24/17 08/30/19 History Tamsulosin HCl [Flomax] 0.4 mg PO BID 07/24/17 08/30/19 History Allopurinol [Zyloprim] 300 mg PO DAILY 08/30/19 08/30/19 History Ketoconazole 2% Shampoo [Nizoral] 1 applic TOPICAL Q7D 08/30/19 08/30/19 History Magnesium l-Lactate [Mag-Tab Sr] 84 mg PO DAILY 08/30/19 08/30/19 History Simvastatin [Zocor] 20 mg PO HS 08/30/19 08/30/19 History Allergies Allergy/AdvReac Type Severity Reaction Status Date / Time smoke Allergy Dyspnea Uncoded 08/30/19 21:32 Surgical - Exam Vital Signs Temp Pulse Resp BP Pulse Ox 97.7 F 91 18 129/79 92 L 08/30/19 11:13 08/30/19 11:13 08/30/19 11:13 08/30/19 11:13 08/30/19 11:13 Results - Labs 08/31/19 07:27 08/31/19 07:27 Abnormal Lab Results - Last 24 Hours (Table) 08/30/19 08/30/19 08/30/19 Range/Units 21:22 21:22 21:22 RBC 3.78 L (4.30-5.90) m/uL Hgb 11.1 L (13.0-17.5) gm/dL Hct 35.3 L (39.0-53.0) % APTT 30.5 H (22.0-30.0) sec Chloride 114 H (98-107) mmol/L Carbon Dioxide (22-30) mmol/L BUN 34 H (9-20) mg/dL Creatinine 1.52 H (0.66-1.25) mg/dL Glucose 115 H (74-99) mg/dL Total Protein 5.9 L (6.3-8.2) g/dL Albumin 3.2 L (3.5-5.0) g/dL 08/31/19 08/31/19 Range/Units 07:27 07:27 RBC 3.62 L (4.30-5.90) m/uL Hgb 10.9 L (13.0-17.5) gm/dL Hct 33.7 L (39.0-53.0) % APTT (22.0-30.0) sec Chloride 111 H (98-107) mmol/L Carbon Dioxide 21 L (22-30) mmol/L BUN 31 H (9-20) mg/dL Creatinine 1.49 H (0.66-1.25) mg/dL Glucose 103 H (74-99) mg/dL Total Protein 5.7 L (6.3-8.2) g/dL Albumin 3.1 L (3.5-5.0) g/dL Diabetes panel 08/30/19 08/31/19 Range/Units 21:22 07:27 Sodium 144 141 (137-145) mmol/L Potassium 4.7 4.8 (3.5-5.1) mmol/L Chloride 114 H 111 H (98-107) mmol/L Carbon Dioxide 23 21 L (22-30) mmol/L BUN 34 H 31 H (9-20) mg/dL Creatinine 1.52 H 1.49 H (0.66-1.25) mg/dL Glucose 115 H 103 H (74-99) mg/dL Calcium 8.7 8.8 (8.4-10.2) mg/dL AST 27 25 (17-59) U/L ALT 14 13 (4-49) U/L Alkaline Phosphatase 60 66 (38-126) U/L Total Protein 5.9 L 5.7 L (6.3-8.2) g/dL Albumin 3.2 L 3.1 L (3.5-5.0) g/dL Calcium panel 08/30/19 08/31/19 Range/Units 21:22 07:27 Calcium 8.7 8.8 (8.4-10.2) mg/dL Albumin 3.2 L 3.1 L (3.5-5.0) g/dL Pituitary panel 08/30/19 08/31/19 Range/Units 21:22 07:27 Sodium 144 141 (137-145) mmol/L Potassium 4.7 4.8 (3.5-5.1) mmol/L Chloride 114 H 111 H (98-107) mmol/L Carbon Dioxide 23 21 L (22-30) mmol/L BUN 34 H 31 H (9-20) mg/dL Creatinine 1.52 H 1.49 H (0.66-1.25) mg/dL Glucose 115 H 103 H (74-99) mg/dL Calcium 8.7 8.8 (8.4-10.2) mg/dL Adrenal panel 08/30/19 08/31/19 Range/Units 21:22 07:27 Sodium 144 141 (137-145) mmol/L Potassium 4.7 4.8 (3.5-5.1) mmol/L Chloride 114 H 111 H (98-107) mmol/L Carbon Dioxide 23 21 L (22-30) mmol/L BUN 34 H 31 H (9-20) mg/dL Creatinine 1.52 H 1.49 H (0.66-1.25) mg/dL Glucose 115 H 103 H (74-99) mg/dL Calcium 8.7 8.8 (8.4-10.2) mg/dL Total Bilirubin 0.7 1.0 (0.2-1.3) mg/dL AST 27 25 (17-59) U/L ALT 14 13 (4-49) U/L Alkaline Phosphatase 60 66 (38-126) U/L Total Protein 5.9 L 5.7 L (6.3-8.2) g/dL Albumin 3.2 L 3.1 L (3.5-5.0) g/dL
--- NOTE | 2019-08-31 10:51 | PN ---
PROGRESS NOTE An 88-year-old white male with multiple rib fractures. He is having no chest pain or shortness of breath, but coughing makes his pain way worse. He is requesting increase in pain medicine. He states he had some hematuria in his urine. He wants this checked also, which will be done. We will repeat urinalysis and maybe do ultrasound of his kidneys. CARDIOVASCULAR: S1, S2. LUNGS: Show scattered rhonchi and wheeze. MUSCULOSKELETAL: He has severe tenderness to palpation left lateral ribs. ASSESSMENT: 1. Left lateral rib fracture. 2. Hematuria. 3. Chronic obstructive pulmonary disease. 4. Diastolic heart failure. 5. Chronic renal disease. 6. Hematuria, possible ultrasound of the kidneys will be done. Pain medicine will have to be adjusted. MMODL / IJN: [id number] /
[2019-08-31] MEDS ORDERED: IPRATROPIUM-ALBUTEROL 3 ML NEB INHALATION SCH (12:00)
--- NOTE | 2019-08-31 12:39 | P.CNPUL ---
History of Present Illness Consult date: 08/31/19 Requesting physician: Bryant Gil Reason for consult: abnormal CXR/CT (Rib fractures status post fall) Chief complaint: Left-sided head, chest and hip pain History of present illness: This is a very pleasant 88-year-old gentleman who follows with Dr. Yadav as his primary care physician. He has a history of coronary artery disease with previous stenting and subsequent bypass surgery 4 in 2002, ischemic cardiomyopathy status post AICD placement, hearing disorder, hyperlipidemia, osteoarthritis, benign prosthetic hypertrophy, sleep apnea not utilizing CPAP, on nocturnal oxygen and inhalers. Lifelong nonsmoker. He has not been seen by a compensation and hris analyst in the past. He presented here to the emergency room yesterday after sustaining a fall the night before stating he missed a step on the stairs. He fell backwards landing on his left side hitting the left side of his head. He denies any loss of consciousness. There was some bleeding. The patient is on Xarelto. 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 No acute intracranial abnormality was noted. The patient has similar moderate to advanced multilevel spondylotic changes in the cervical spine without malalignment or acute fracture. Computed tomography scan of the chest revealed fractures of the left lateral fifth 6 and seventh ribs. The fifth and sixth rib fractures are segmental fractures. 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 There posterior basilar opacities representing atelectasis versus infection/aspiration pneumonitis. Moderate sized left inguinal hernia. Distal colonic diverticulosis. BPH versus prostate cancer. The patient is seen today in consultation on the regular medical floor. He is currently resting fairly co mfortably in bed. Awake and alert in no acute distress. Oriented 3. He is still having issues with pain control regarding the left-sided rib fractures. He is maintaining O2 saturations in the low 90s on 2 L/m per nasal cannula. Temp 99.2. Hemodynamically stable. White count 7.9. Hemoglobin 10.9. Potassium 4.8. INR 1.1. Creatinine 1.49. He has been on Hiko for pain control. Bronchodilators, incentive spirometry education. Review of Systems REVIEW OF SYSTEMS: CONSTITUTIONAL: Denies any recent significant weight loss or weight gain. EYES: Denies change in vision. EARS, NOSE, MOUTH, THROAT: Denies headaches, denies sore throat. CARDIOVASCULAR: Denies chest pain, palpitations or syncopal episodes. RESPIRATORY: Pain on inhalation due to rib fractures on the left. Denies shortness of breath, cough, congestion or hemoptysis. GASTROINTESTINAL: Denies change in appetite, denies abdominal pain GENITOURINARY: Denies hematuria, denies infections. MUSKULOSKELETAL: Left-sided chest and hip pain. Denies pain, denies swelling. INTEGUMENTARY: Denies rash, denies eczema. NEUROLOGICAL: Denies recent memory loss, no recent seizure activity. PSYCHIATRIC: Denies anxiety, denies depression. HEMATOLOGIC/LYMPHATIC: Denies anemia, denies enlarged lymph nodes. Past Medical History Past Medical History: Coronary Artery Disease (CAD), Cancer, COPD, GERD/Reflux, Hearing Disorder / Deafness, Hyperlipidemia, Osteoarthritis (OA), Pneumonia, Prostate Disorder, Renal Disease, Sleep Apnea/CPAP/BIPAP, Thyroid Disorder Additional Past Medical History / Comment(s): GOUT; not currently using CPAP, see Dr Sanchez H&P, edema left lower leg, bruises easily, hx skin cancer Last Myocardial Infarction Date:: 2001 History of Any Multi-Drug Resistant Organisms: None Reported Past Surgical History: AICD, Coronary Bypass/CABG, Heart Catheterization With Stent, Hernia Repair, Orthopedic Surgery, Pacemaker Additional Past Surgical History / Comment(s): 4 Vessel CABG 2002. 2 STENTS 2001. HAS 2 PINS IN RT ACHILLES. parathyroid surgery, AICD/PACEMAKER, [facility]. 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, recent biopsy left ear, maximus cataracts Past Anesthesia/Blood Transfusion Reactions: No Reported Reaction Date of Last Stent Placement:: UNK Type of Cardiac Device: Permanent Pacemaker, AICD Device Placement Date:: unknown Past Psychological History: No Psychological Hx Reported Smoking Status: Never smoker Past Alcohol Use History: None Reported Past Drug Use History: None Reported - Past Family History Father Family Medical History: Congestive Heart Failure (CHF), Diabetes Mellitus Additional Family Medical History / Comment(s): AT AGEG 66 FROM CHF Mother Family Medical History: COPD Additional Family Medical History / Comment(s): AT AGE FROM ANEURYSM Sister(s) Family Medical History: Cancer Medications and Allergies Home Medications Medication Instructions Recorded Confirmed Type Loratadine [Claritin] 10 mg PO DAILY 03/28/14 08/30/19 History Montelukast [Singulair] 10 mg PO DAILY 03/28/14 08/30/19 History Terazosin [Hytrin] 2 mg PO HS 03/28/14 08/30/19 History Rivaroxaban [Xarelto] 15 mg PO DAILY 12/26/14 08/30/19 History Omeprazole [PriLOSEC] 20 mg PO DAILY 12/30/14 08/30/19 History Cholecalciferol [Vitamin D3] 1,000 unit PO DAILY 07/24/17 08/30/19 History Finasteride [Proscar] 5 mg PO DAILY 07/24/17 08/30/19 History Metoprolol Succinate [Toprol XL] 25 mg PO DAILY 07/24/17 08/30/19 History Tamsulosin HCl [Flomax] 0.4 mg PO BID 07/24/17 08/30/19 History Allopurinol [Zyloprim] 300 mg PO DAILY 08/30/19 08/30/19 History Ketoconazole 2% Shampoo [Nizoral] 1 applic TOPICAL Q7D 08/30/19 08/30/19 History Magnesium l-Lactate [Mag-Tab Sr] 84 mg PO DAILY 08/30/19 08/30/19 History Simvastatin [Zocor] 20 mg PO HS 08/30/19 08/30/19 History Allergies Allergy/AdvReac Type Severity Reaction Status Date / Time smoke Allergy Dyspnea Uncoded 08/30/19 21:32 Physical Exam Vitals: Vital Signs Temp Pulse Pulse Resp BP BP Pulse Ox 08/31/19 12:06 62 08/31/19 11:58 60 08/31/19 08:17 62 08/31/19 08:06 58 L 90 L 08/31/19 07:00 99.2 F 70 15 108/66 90 L 08/31/19 00:35 99.3 F 69 16 115/64 91 L 08/31/19 00:04 60 08/30/19 23:54 54 L 08/30/19 19:40 97.9 F 81 18 125/63 95 08/30/19 14:44 98.2 F 68 17 154/77 97 08/30/19 13:49 88 18 131/69 95 Intake and Output 08/30/19 08/31/1908/31/19 22:59 06:59 14:59 Intake Total 540 Output Total 100 Balance 540 -100 Intake: Oral 540 Output: Urine 100 Other: # Voids 1 GENERAL EXAM: Alert, pleasant 88-year-old gentleman, on 2 L nasal cannula, fairly comfortable in no apparent distress. HEAD: Normocephalic. Left-sided trauma, no sutures required EYES: Normal reaction of pupils, equal size. NOSE: Clear with pink turbinates. THROAT: No erythema or exudates. NECK: No masses, no JVD. CHEST: No chest wall deformity. Pain on inhalation on the left chest. LUNGS: Equal air entry with few scattered rhonchi. Diminished CVS: S1 and S2 normal with no audible murmur, regular rhythm. ABDOMEN: No hepatosplenomegaly, normal bowel sounds, no guarding or rigidity. SPINE: No scoliosis or deformity SKIN: No rashes CENTRAL NERVOUS SYSTEM: No focal deficits, tone is normal in all 4 extremities. EXTREMITIES: There is no peripheral edema. No clubbing, no cyanosis. Peripheral pulses are intact. Results - Laboratory Findings CBC and BMP: 08/31/19 07:27 08/31/19 07:27 PT/INR, D-dimer PT 12.0 sec (9.0-12.0) 08/30/19 21:22 INR 1.1 (<1.2) 08/30/19 21:22 Abnormal lab findings: Abnormal Labs 08/30/19 08/30/19 08/30/19 21:22 21:22 21:22 RBC 3.78 L Hgb 11.1 L Hct 35.3 L APTT 30.5 H Chloride 114 H Carbon Dioxide BUN 34 H Creatinine 1.52 H Glucose 115 H Total Protein 5.9 L Albumin 3.2 L 08/31/19 08/31/19 07:27 07:27 RBC 3.62 L Hgb 10.9 L Hct 33.7 L APTT Chloride 111 H Carbon Dioxide 21 L BUN 31 H Creatinine 1.49 H Glucose 103 H Total Protein 5.7 L Albumin 3.1 L - Diagnostic Findings CT scan - chest: image reviewed Assessment and Plan Assessment: 1 Trauma secondary to fall with fractures of the left ribs 5, 6 and 7 2 Cardiomegaly with new small effusions 3 Posterior basilar opacities secondary to atelectasis versus aspiration pneumonitis 4 Acute hypoxemic respiratory failure secondary to above including shallow respirations due to pain 5 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 6 Moderate sized left inguinal hernia 7 Soft tissue measuring 4 x 8 x 4.6 cm protruding in the anterior bladder suspected to represent BPH versus prostate cancer 8 History of BPH 9 Coronary artery disease with previous stent placement and subsequent coronary artery bypass grafting 4 in 2002 10 Ischemic cardio myopathy status post AICD placement, on Xarelto 11 Hearing disorder 12 Hyperlipidemia 13 Obstructive sleep apnea, not on CPAP but utilizing oxygen at night 14 Hypothyroidism 15 History of gout 16 Chronic bronchial asthma on Trelegy and Singulair in the outpatient setting 17 Acute on chronic renal failure, creatinine 1.49 Plan: The patient was seen and evaluated by Dr. Corona. CAT scan and labs reviewed Incentive spirometer and cough and deep breathing exercises Increase activity as tolerated Adequate pain control Chest x-ray in a.m. We'll continue to follow make further recommendations based on his clinical status I, the cosigning physician, performed a history & physical examination of the patient. Lungs sounds with few scattered rhonchi bilaterally, diminished. Maintaining good O2 saturations in the 90s on 2 L/m per nasal cannula. I discussed the assessment and plan of care with my nurse practitioner, Sandy Lujan. I attest to the above note as dictated by her. Time with Patient: Greater than 30
--- NOTE | 2019-08-31 13:21 | CDI ---
Documentation Clarification Form Date: 08/31/2019 01:13:57 PM From: Eleanor Sullivan RN, CCDS Admit Date: 08/30/2019 01:31:00 PM Patient Name: Blayne Tolentino Visit Number: [id number] ATTENTION: The Clinical Documentation Specialists (CDI) and [facility] Coding Staff appreciate your assistance in clarifying documentation. Please respond to the clarification below the line at the bottom and electronically sign. The CDI & [facility] Coding staff will review the response and follow-up if needed. Please note: Queries are made part of the Legal Health Record. If you have any questions, please contact the author of this message via ITS. Dr. Dg Yadav Chronic renal disease is documented in the Attending process note on 08/31 and requires further specificity. History/Risk Factors: CAD, Renal disease, CABG, Stents Clinical Indicators: Current BUN: 34/31 CR: 1.52/1.49 GFR: 48/49 08/24 Patients Baseline BUN/CR/GFR:51/1.75/35 Treatment: IVF @ 50 cc/hr In order to capture the severity of condition, please clarify if the condition signifies: CKD Stage 1 (GFR > 90) CKD Stage 2 (GFR 60-89) CKD Stage 3 (GFR 30-59) CKD Stage 4 (GFR 15-29) CKD Stage 5 (GFR <15) ESRD Other, please specify Unable to determine (Last Revision: December 2017) MTDD
--- NOTE | 2019-08-31 13:29 | CDI ---
Documentation Clarification Form Date: 08/31/2019 01:21:38 PM From: Eleanor Sullivan RN, CCDS Admit Date: 08/30/2019 01:31:00 PM Patient Name: Blayne Tolentino Visit Number: [id number] ATTENTION: The Clinical Documentation Specialists (CDI) and [facility] Coding Staff appreciate your assistance in clarifying documentation. Please respond to the clarification below the line at the bottom and electronically sign. The CDI & [facility] Coding staff will review the response and follow-up if needed. Please note: Queries are made part of the Legal Health Record. If you have any questions, please contact the author of this message via ITS. Dr. Dg Yadav Diastolic heart failure is documented in the attending progress note on 08/31/19 and requires further specificity. History/Risk Factors: CAD, CABG, Stents Clinical Indicators: VS/Pulse OX: Temp 97.7, HR 91, RR 18, B/P 129/79, spo2 92% ra BNP: not checked Echocardiogram Results: no results available CT AP:"ADDITIONAL PROMINENT POSTERIOR BASILAR OPACITIES COULD REPRESENT PROMINENT AREAS OF ATELECTASIS VERSUS INFECTIOUS/ASPIRATION PNEUMONITIS.CLINICALLY CORRELATE." Treatment: Toprol XL 25 mg PO QD IVF @ 50 cc/hr In your professional opinion, can you please clarify the acuity of CHF if known? Diastolic Heart Failure: Acute Chronic Acute on Chronic Unable to Determine Other, please specify (Last Revision: December 2017) MTDD
[2019-08-31] MEDS: HEPARIN SODIUM,PORCINE 5,000 UNIT/ML 1 ML VIAL SQ SCH ×2 (16:43→23:42)
[2019-08-31] MEDS: ATORVASTATIN 10 MG TAB PO SCH (19:54)
[2019-08-31] MEDS: DOXAZOSIN 2 MG TAB PO SCH (19:54)
[2019-08-31] MEDS: HYDROmorphone 0.5 MG/0.5 ML SYRINGE IVP PRN (23:42)
[2019-09-01] MEDS: HYDROmorphone 0.5 MG/0.5 ML SYRINGE IVP PRN (03:36)
[2019-09-01] MEDS: IPRATROPIUM-ALBUTEROL 3 ML NEB INHALATION PRN (04:01)
[2019-09-01] MEDS: HYDROcodone/APAP 5-325MG 1 EACH TAB PO PRN (06:36)
[2019-09-01] MEDS: IPRATROPIUM-ALBUTEROL 3 ML NEB INHALATION SCH ×4 (08:03→19:53)
[2019-09-01 08:31] LABS: Basophils % (A) 0 %; Eosinophils # (A) 0.1 k/uL (0-0.7); Eosinophils % (A) 1 %; HGB 11.3 gm/dL (13.0-17.5); Hypochromasia Slight; Lymphocytes % (A) 9 %; MCH 30.5 pg (25.0-35.0); MCHC 32.4 g/dL (31.0-37.0); MCV 94.2 fL (80.0-100.0); Mean Platelet Volume 7.9; Monocytes # (A) 0.5 k/uL (0-1.0); Monocytes % (A) 5 %; Neutrophils # (A) 9.5 k/uL (1.3-7.7); Neutrophils % (A) 85 %; Platelet Count 205 k/uL (150-450); RBC 3.71 m/uL (4.30-5.90); RDW 14.4 % (11.5-15.5); WBC 11.2 k/uL (3.8-10.6)
--- NOTE | 2019-09-01 09:23 | XR ---
EXAMINATION TYPE: XR chest 1V DATE OF EXAM: 09/01/2019 COMPARISON: Prior chest x-ray 08/24/2019, chest CT 08/30/2019 HISTORY: Pneumothorax, rib fractures left side, trauma TECHNIQUE: Single frontal view of the chest is obtained. FINDINGS: Patient is rotated. Generator is present in the left pectoral region, there are leads in t he right atrium and ventricle. The heart is enlarged. No evident pneumothorax. Bibasilar increased de nsities present, the heart borders and hemidiaphragms are obscured, aorta is dense and enlarged. Chey ent's rib fractures are not seen with certainty on today's plain film. There are overlying cardiac le ads. Arthropathy noted within the shoulders. IMPRESSION: Probable basilar atelectasis and possible associated effusions. Cardiomegaly. Aortic ane urysm. No evident pneumothorax.
[2019-09-01] MEDS ORDERED: HYDROmorphone 1 MG/ML 1 ML SYRINGE IVP PRN (09:31)
[2019-09-01] MEDS: HEPARIN SODIUM,PORCINE 5,000 UNIT/ML 1 ML VIAL SQ SCH ×3 (09:48→23:37)
[2019-09-01] MEDS: TAMSULOSIN 0.4 MG CAP.ER.24H PO SCH ×2 (10:13→22:21)
[2019-09-01] MEDS: CHOLECALCIFEROL 1,000 UNIT TAB PO SCH (10:13)
[2019-09-01] MEDS: MONTELUKAST 10 MG TAB PO SCH (10:13)
[2019-09-01] MEDS: METOPROLOL SUCCINATE (ER) 25 MG TAB.ER.24H PO SCH (10:13)
[2019-09-01] MEDS: FINASTERIDE 5 MG TAB PO SCH (10:14)
[2019-09-01] MEDS: ALLOPURINOL 300 MG TAB PO SCH (10:14)
[2019-09-01] MEDS: PANTOPRAZOLE 40 MG TABLET PO SCH (10:14)
[2019-09-01] MEDS: LORATADINE 10 MG TAB PO SCH (10:15)
--- NOTE | 2019-09-01 11:54 | P.PN ---
Subjective Progress Note Date: 09/01/19 Principal diagnosis: Left-sided rib fractures This is a very pleasant 88-year-old gentleman who follows with Dr. Yadav as his primary care physician. He has a history of coronary artery disease with previous stenting and subsequent bypass surgery 4 in 2002, ischemic cardiom yopathy status post AICD placement, hearing disorder, hyperlipidemia, osteoarthritis, benign prosthetic hypertrophy, sleep apnea not utilizing CPAP, on nocturnal oxygen and inhalers. Lifelong nonsmoker. He has not been seen by a salon coordinator in the past. He presented here to the emergency room yesterday after sustaining a fall the night before stating he missed a step on the stairs. He fell backwards landing on his left side hitting the left side of his head. He denies any loss of consciousness. There was some bleeding. The patient is on Xarelto. 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 No acute intracranial abnormality was noted. The patient has similar moderate to advanced multilevel spondylotic changes in the cervical spine without malalignment or acute fracture. Computed tomography scan of the chest revealed fractures of the left lateral fifth 6 and seventh ribs. The fifth and sixth rib fractures are segmental fractures. 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 There posterior basilar opacities representing atelectasis versus infection/aspiration pneumonitis. Moderate sized left inguinal hernia. Distal colonic diverticulosis. BPH versus prostate cancer. The patient is seen today in co nsultation on the regular medical floor. He is currently resting fairly comfortably in bed. Awake and alert in no acute distress. Oriented 3. He is still having issues with pain control regarding the left-sided rib fractures. He is maintaining O2 saturations in the low 90s on 2 L/m per nasal cannula. Temp 99.2. Hemodynamically stable. White count 7.9. Hemoglobin 10.9. Potassium 4.8. INR 1.1. Creatinine 1.49. He has been on Timblin for pain control. Bronchodilators, incentive spirometry education. On 09/01/2019 patient seen in follow-up on medical surgical floor. He sitting up in the chair, still having significant amount of pain with deep inspiration and coughing in his left chest. We maintained on oral Timblin's 5 mg every 4 hours as needed for pain, and dilated for breakthrough pain. But she states he had a rough night, and was in a lot of pain. He is working on his incentive spirometer, achieving about 500 mL, oxygen requirement has increased, currently on 6 L is pulse ox is 92%. He is chest x-ray shows basilar atelectasis and possible associated effusions. His labs have been reviewed, showing white blood cell count of 11.2, hemoglobin of 11.3, no BMP done today. Afebrile Objective - Vital Signs Vital signs: Vital Signs Temp 97.4 F L 09/01/19 07:00 Pulse 69 09/01/19 11:15 Resp 22 09/01/19 08:00 BP 126/71 09/01/19 07:00 Pulse Ox 92 L 09/01/19 07:00 Intake & Output 08/31/19 09/01/19 09/01/19 18:59 06:59 18:59 Output Total 100 650 Balance -100 -650 Output: Urine 100 650 Other: Voiding Method Urinal # Voids 2 1 - Exam GENERAL EXAM: Alert, very pleasant, 88-year-old white male, currently on 6 L of oxygen and the pulse ox of 92% moderate to severe amount of discomfort from the left-sided chest pain with deep inspiration and coughing, comfortable in no apparent distress. HEAD: Normocephalic/atraumatic. EYES: Normal reaction of pupils, equal size. Conjunctiva pink, sclera white. NOSE: Clear with pink turbinates. THROAT: No erythema or exudates. NECK: No masses, no JVD, no thyroid enlargement, no adenopathy. CHEST: No chest wall deformity. Symmetrical expansion. LUNGS: Equal air entry with basilar crackles CVS: Regular rate and rhythm, normal S1 and S2, no gallops, no murmurs, no rubs ABDOMEN: Soft, nontender. No hepatosplenomegaly, normal bowel sounds, no guarding or rigidity. EXTREMITIES: No clubbing, no edema, no cyanosis, 2+ pulses and upper and lower extremities. MUSCULOSKELETAL: Muscle strength and tone normal. SPINE: No scoliosis or deformity SKIN: No rashes CENTRAL NERVOUS SYSTEM: Alert and oriented -3. No focal deficits, tone is normal in all 4 extremities. PSYCHIATRIC: Alert and oriented -3. Appropriate affect. Intact judgment and insight. - Labs CBC & Chem 7: 09/01/19 07:05 08/31/19 07:27 Labs: Abnormal Lab Results - Last 24 Hours (Table) 09/01/19 Range/Units 07:05 WBC 11.2 H (3.8-10.6) k/uL RBC 3.71 L (4.30-5.90) m/uL Hgb 11.3 L (13.0-17.5) gm/dL Hct 35.0 L (39.0-53.0) % Neutrophils # 9.5 H (1.3-7.7) k/uL Assessment and Plan Plan: Assessment: #1. Fall at home, trauma and fractures of the left ribs 5, 6 and 7 #2. Acute hypoxemic respiratory failure related to basilar atelectasis, and small pleural effusions, and hypoventilation related to chest wall pain #3. Soft tissue mass in the anterior bladder, rule out BPH versus prostate cancer #4. 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 Moderate-sized left inguinal hernia #6. History of coronary artery disease with previous stenting and coronary bypass grafting #7. History of ischemic cardiomyopathy status post AICD placement on Xarelto #8. Hyperlipidemia #9. Obstructive sleep apnea, not on CPAP, does wear home O2 at bedtime #10. Hypothyroidism #11. Chronic bronchial asthma, unspecified, on Trelegy and Singular Plan: Continue nebulized bronchodilators, incentive spirometry use, we'll switch the Timblin 5 mg on a scheduled basis, and increase Dilantin to 1 mg IV for breakthrough pain. Today's chest x-ray has been reviewed showing basilar atelectasis and small pleural effusions. We'll check with surgery whether pain service consultation as necessary for better pain control. We'll continue to amie de anda I performed a history & physical examination of the patient and discussed their management with my nurse practitioner, Elva Cruz. I reviewed the nurse practitioner's note and agree with the documented findings and plan of care. Lung sounds are positive for diminished breath sounds with basilar crackles. The findings and the impression was discussed with the patient. I attest to the documentation by the nurse practitioner. Time with Patient: Less than 30
[2019-09-01] MEDS ORDERED: HYDROcodone/APAP 5-325MG 1 EACH TAB PO PRN (12:00)
--- NOTE | 2019-09-01 12:14 | P.PN ---
<Petra Garza - Last Filed: 09/01/19 14:08> Subjective Progress Note Date: 09/01/19 CHIEF COMPLAINT: Fall HISTORY OF PRESENT ILLNESS: Patient examined this morning. He is sitting up in the chair. Denies abdominal pain. Tolerating diet. Denies nausea or vomiting. Reports severe pain with coughing or movement due to rib fractures. He is using his incentive spirometer but unable to pull adequate volumes due to pain. PHYSICAL EXAM: VITAL SIGNS: Reviewed GENERAL: Well-developed in no acute distress. HEENT: No sclera icterus. Extraocular movements grossly intact. Moist buccal mucosa. Head is atraumatic, normocephalic. Hears conversational speech. No nasal drainage. NECK: Supple without lymphadenopathy. CHEST: Non-labored respirations and equal bilateral excursions. CARDIOVASCULAR: Regular rate with regular rhythm. Palpable 2+ radial pulses. ABDOMEN: Soft. Nondistended. Nontender. MUSCULOSKELETAL: No clubbing or cyanosis or edema. NEUROLOGIC: No focal or lateralizing signs. Cranial nerves II through XII grossly intact. PSYCH: Appropriate affect. Alert and oriented to person, place and time. SKIN: Multiple bruises. Laceration to left scalp. No active bleeding. ASSESSMENT: 1. Trauma, status post fall 2. Left rib fractures, 5, 6, 7 3. Recent ER visit for fall, 08/24/19 4. Left scalp laceration 5. senior care anticoagulation use, on Xarelto PLAN: Pulmonary on consult for rib fractures Incentive spirometry encouraged Activity as tolerated. PT/OT Continue to hold Xarelto Pain control. Consult anesthesia for pain management and possible epidural placement. Case management/social work on consult for discharge planning. Likely will need ECF placement due to multiple recent falls Discharge per medicine Nurse practitioner note has been reviewed by physician. Signing provider agrees with the documented findings, assessment, and plan of care. Objective - Vital Signs Vital signs: Vital Signs Temp 97.4 F L 09/01/19 07:00 Pulse 69 09/01/19 11:15 Resp 22 09/01/19 08:00 BP 126/71 09/01/19 07:00 Pulse Ox 92 L 09/01/19 07:00 Intake & Output 08/31/19 09/01/19 09/01/19 18:59 06:59 18:59 Output Total 100 650 Balance -100 -650 Output: Urine 100 650 Other: Voiding Method Urinal # Voids 2 1 - Labs CBC & Chem 7: 09/01/19 07:05 08/31/19 07:27 Labs: Abnormal Lab Results - Last 24 Hours (Table) 09/01/19 Range/Units 07:05 WBC 11.2 H (3.8-10.6) k/uL RBC 3.71 L (4.30-5.90) m/uL Hgb 11.3 L (13.0-17.5) gm/dL Hct 35.0 L (39.0-53.0) % Neutrophils # 9.5 H (1.3-7.7) k/uL <Bozena Bales N - Last Filed: 09/02/19 11:36> Subjective As above. For pain management recommend epidural. Likely epidural placement at least 3 days for maximum pain management Objective - Vital Signs Vital signs: Vital Signs Temp 99.1 F 09/02/19 07:00 Pulse 68 09/02/19 11:29 Resp 14 09/02/19 07:00 BP 100/61 09/02/19 07:00 Pulse Ox 92 L 09/02/19 07:45 Intake & Output 09/01/19 09/02/19 09/02/19 18:59 06:59 18:59 Intake Total 75 100 Output Total 300 Balance 75 -200 Weight 81.647 kg Intake: IV 75 Oral 100 Output: Urine 300 Other: Voiding Method Indwelling Catheter # Voids 3 - Labs CBC & Chem 7: 09/02/19 06:36 09/02/19 06:36 Labs: Abnormal Lab Results - Last 24 Hours (Table) 09/02/19 09/02/19 Range/Units 06:36 06:36 WBC 14.3 H (3.8-10.6) k/uL RBC 3.55 L (4.30-5.90) m/uL Hgb 10.4 L (13.0-17.5) gm/dL Hct 33.7 L (39.0-53.0) % MCHC 30.9 L (31.0-37.0) g/dL Neutrophils # 12.4 H (1.3-7.7) k/uL Potassium 5.3 H (3.5-5.1) mmol/L BUN 49 H (9-20) mg/dL Creatinine 2.06 H (0.66-1.25) mg/dL Glucose 124 H (74-99) mg/dL
[2019-09-01 12:20] LABS: Appearance,Urine Clear (Clear); Bilirubin,Urine Negative (Negative); Blood,Urine Negative (Negative); Color,Urine Yellow; Glucose,Urine (UA) Negative (Negative); Ketones,Urine Negative (Negative); Leukocyte Esterase,Urine Negative (Negative); Nitrite,Urine Negative (Negative); Protein,Urine Negative (Negative)
--- NOTE | 2019-09-01 13:15 | P.EN ---
I came to see the patient and he was at surgery to getting epidural procedure
[2019-09-01] MEDS ORDERED: LACTATED RINGERS 1,000 ML IV ONE ×2 (14:00)
[2019-09-01] MEDS ORDERED: NALOXONE 0.4 MG/ML 1 ML VIAL IV PRN (14:20)
[2019-09-01] MEDS: ROPIVACAINE 250 MG, HYDROMORPHONE (PF) 5 MG in SODIUM CHLORIDE 0.9% 200 ML EPIDURAL PRN (15:20)
[2019-09-01] MEDS: ATORVASTATIN 10 MG TAB PO SCH (22:22)
[2019-09-01] MEDS: DOXAZOSIN 2 MG TAB PO SCH (22:31)
[2019-09-02] MEDS: IPRATROPIUM-ALBUTEROL 3 ML NEB INHALATION PRN (05:40)
[2019-09-02 07:01] LABS: Basophils % (A) 0 %; Eosinophils # (A) 0.1 k/uL (0-0.7); Eosinophils % (A) 0 %; HCT 33.7 % (39.0-53.0); HGB 10.4 gm/dL (13.0-17.5); Hypochromasia Slight; Lymphocytes # (A) 1.1 k/uL (1.0-4.8); Lymphocytes % (A) 8 %; MCH 29.3 pg (25.0-35.0); MCHC 30.9 g/dL (31.0-37.0); MCV 94.8 fL (80.0-100.0); Mean Platelet Volume 7.6; Monocytes # (A) 0.6 k/uL (0-1.0); Monocytes % (A) 4 %; Neutrophils # (A) 12.4 k/uL (1.3-7.7); Neutrophils % (A) 87 %; Platelet Count 167 k/uL (150-450); RBC 3.55 m/uL (4.30-5.90); RDW 14.8 % (11.5-15.5); WBC 14.3 k/uL (3.8-10.6)
[2019-09-02 07:11] LABS: Calcium 8.5 mg/dL (8.4-10.2); Potassium 5.3 mmol/L (3.5-5.1)
--- NOTE | 2019-09-02 07:28 | P.PN ---
Subjective On-call hospitalist covering Dr. Yadav through the weekend This is a pleasant 88 years old male with past medical history of urinary artery disease status post CABG, COPD, GERD, hearing difficulty, hyperlipidemia, osteoarthritis, Sleep apnea not on CPAP/BiPAP, hypothyroidism. Patient was admitted on 1225 for a fall with left rib fracture. Patient had severe pain particularly rate, he underwent epidural procedure yesterday to help with his p ain. This morning patient noticed to be dyspneic he has difficulty talking due to his dyspnea with some greenish phlegm. He rates his pain about 60/10 in severity. His little tachypneic also. Also his requiring 10 L of oxygen via high flow nasal cannula. He is saturating 94%. Aggressive Vitas looks stable. His breathing at a rate of 16 to 18, lap showing worsening leukocytosis from 7.9 up to 14.3 today. Potassium 5.3, creatinine is 2.0. Patient was encouraged to use incentive spirometry which is his not very compliant with it. No significant leg edema. No abdominal pain or tenderness. Review of system: N/a because of patient dyspnea he did not want to provide more information Active Medications Hydrocodone Bitart/Acetaminophen ([place] 5-325) 1 each PO Q4HR PRN PRN Reason: Pain Albuterol/Ipratropium (Duoneb 0.5 Mg-3 Mg/3 Ml Soln) 3 ml INHALATION RT-QID [facility] Last Admin: 09/01/19 19:53 Dose: 3 ml Documented by: Albuterol/Ipratropium (Duoneb 0.5 Mg-3 Mg/3 Ml Soln) 3 ml INHALATION RT-QID PRN PRN Reason: Shortness Of Breath Or Wheezing Last Admin: 09/02/19 05:40 Dose: 3 ml Documented by: Allopurinol (Zyloprim) 300 mg PO DAILY [facility] Last Admin: 09/01/19 10:14 Dose: 300 mg Documented by: Atorvastatin Calcium (Lipitor) 10 mg PO [facility] Last Admin: 09/01/19 22:22 Dose: 10 mg Documented by: Cholecalciferol (Vitamin D3 (25 Mcg = 1000 Iu)) 1,000 unit PO DAILY [facility] Last Admin: 09/01/19 10:13 Dose: 1,000 unit Documented by: Doxazosin Mesylate (Cardura) 2 mg PO [facility] Last Admin: 09/01/19 22:31 Dose: 2 mg Documented by: Finasteride (Proscar) 5 mg PO DAILY [facility] Last Admin: 09/01/19 10:14 Dose: 5 mg Documented by: Heparin Sodium (Porcine) (Heparin) 5,000 unit SQ Q8HR [facility] Last Admin: 09/01/19 23:37 Dose: 5,000 unit Documented by: Hydromorphone HCl (Dilaudid) 1 mg IVP Q4HR PRN PRN Reason: Pain Ropivacaine 250 mg/Hydromorphone HCl 5 mg/ Sodium Chloride 250 mls @ 0 mls/hr EPIDURAL .Q0M PRN; Protocol PRN Reason: Pain Control Last Infusion: 09/01/19 18:05 Dose: 7 mls/hr Documented by: Loratadine (Claritin) 10 mg PO DAILY [facility] Last Admin: 09/01/19 10:15 Dose: 10 mg Documented by: Metoprolol Succinate (Toprol Xl) 25 mg PO DAILY [facility] Last Admin: 09/01/19 10:13 Dose: 25 mg Documented by: Montelukast Sodium (Singulair) 10 mg PO DAILY [facility] Last Admin: 09/01/19 10:13 Dose: 10 mg Documented by: Naloxone HCl (Narcan) 0.2 mg IV Q2M PRN PRN Reason: Opioid Reversal Pantoprazole Sodium (Protonix) 40 mg PO DAILY [facility] Last Admin: 09/01/19 10:14 Dose: 40 mg Documented by: Tamsulosin HCl (Flomax) 0.4 mg PO BID [facility] Last Admin: 09/01/19 22:21 Dose: 0.4 mg Documented by: Objective - Vital Signs Vital signs: Vital Signs Temp 99.1 F 09/02/19 01:48 Pulse 68 09/02/19 05:55 Resp 16 09/02/19 03:45 BP 106/65 09/02/19 01:48 Pulse Ox 94 L 09/02/19 01:48 Intake & Output 09/01/19 09/02/19 09/02/19 18:59 06:59 18:59 Intake Total 75 100 Output Total 300 Balance 75 -200 Weight 81.647 kg Intake: IV 75 Oral 100 Output: Urine 300 Other: Voiding Method Indwelling Catheter # Voids 3 - Labs CBC & Chem 7: 09/02/19 06:36 09/02/19 06:36 Labs: Abnormal Lab Results - Last 24 Hours (Table) 09/01/19 09/02/19 09/02/19 Range/Units 07:05 06:36 06:36 WBC 11.2 H 14.3 H (3.8-10.6) k/uL RBC 3.71 L 3.55 L (4.30-5.90) m/uL Hgb 11.3 L 10.4 L (13.0-17.5) gm/dL Hct 35.0 L 33.7 L (39.0-53.0) % MCHC 30.9 L (31.0-37.0) g/dL Neutrophils # 9.5 H 12.4 H (1.3-7.7) k/uL Potassium 5.3 H (3.5-5.1) mmol/L BUN 49 H (9-20) mg/dL Creatinine 2.06 H (0.66-1.25) mg/dL Glucose 124 H (74-99) mg/dL Assessment and Plan Assessment: Systemic inflammatory response with fever, leukocytosis. Rule out pneumonia Acute kidney injury Mild hyperkalemia Fall without losing consciousness Left rib fracture ribs 5, 6 and 7 Possible mild acute COPD exacerbation Aortic aneurysm about 4.5 cm Chronic kidney disease, stage III History of coronary artery disease status post CABG GERD Hearing difficulty Hyperlipidemia Osteoarthritis Sleep apnea not on CPAP Hypothyroidism Plan: This is a pleasant 88 years old male presents with fall and rib fracture. Rule out pneumonia. Start the patient empirically on antibiotic, check chest x-ray and sputum culture. Start the patient on gentle hydration. Check bladder scan and urinalysis. We'll check also lactic acid. Continue with pain management. Labs and medication were reviewed.. Continue same treatment. Continue with symptomatic treatment. Resume home medication. Monitor lytes and vitals. DVT and GI prophylaxis. Further recommendations of the clinical course of the patient DVT prophylaxis: Subcutaneous heparin GI Prophylaxis: Pepcid PT/OT: Patient might benefit from ECF for rehab Prognosis is guarded
--- NOTE | 2019-09-02 07:39 | XR ---
EXAMINATION TYPE: XR chest 1V DATE OF EXAM: 09/02/2019 CLINICAL HISTORY: Difficulty breathing progress study. TECHNIQUE: Single AP portable upright view of the chest is obtained. COMPARISON: Chest x-ray from one day earlier. CT from 3 days earlier. FINDINGS: Persistent cardiomegaly with multi lead pacemaker/AICD. Overlying sternal wires and EKG le ads are redemonstrated. Low lung volumes with increasing left greater than right bibasilar opacities. Upper lungs remain clear without pneumothorax. Left-sided rib fractures less well seen on plain film s versus CT. IMPRESSION: Low lung volumes and cardiomegaly with increasing left greater than right bilateral lower lung acute infiltrate and/or atelectasis.
[2019-09-02] MEDS: IPRATROPIUM-ALBUTEROL 3 ML NEB INHALATION SCH ×4 (07:45→19:39)
[2019-09-02] MEDS: SODIUM CHLORIDE 0.9% 1,000 ML IV SCH (08:50)
[2019-09-02] MEDS: PANTOPRAZOLE 40 MG TABLET PO SCH (08:58)
[2019-09-02] MEDS: TAMSULOSIN 0.4 MG CAP.ER.24H PO SCH ×2 (08:58→20:21)
[2019-09-02] MEDS: HEPARIN SODIUM,PORCINE 5,000 UNIT/ML 1 ML VIAL SQ SCH ×3 (08:58→23:24)
[2019-09-02] MEDS: ALLOPURINOL 300 MG TAB PO SCH (08:58)
[2019-09-02] MEDS: METOPROLOL SUCCINATE (ER) 25 MG TAB.ER.24H PO SCH (08:58)
[2019-09-02] MEDS: CHOLECALCIFEROL 1,000 UNIT TAB PO SCH (08:58)
[2019-09-02] MEDS: MONTELUKAST 10 MG TAB PO SCH (08:58)
[2019-09-02] MEDS: LORATADINE 10 MG TAB PO SCH (08:58)
[2019-09-02] MEDS: FINASTERIDE 5 MG TAB PO SCH (08:58)
[2019-09-02] MEDS: PIPERACILLIN-TAZOBACTAM 3.375 GM in SODIUM CHLORIDE 0.9% 100 ML IVPB SCH ×3 (09:01→23:24)
--- NOTE | 2019-09-02 10:42 | US ---
EXAMINATION TYPE: US chest DATE OF EXAM: 09/02/2019 COMPARISON: Chest x-ray earlier today. CLINICAL HISTORY: Markings for thoracentesis by pulmonary staff. TECHNIQUE: Targeted ultrasound of the posterior lower bilateral hemithoraces EXAM MEASUREMENTS: Right Pleural Effusion pocket size: 2.5 cm Right skin surface to fluid distance: 1.5 cm Left Pleural Effusion pocket size: 4.8 cm Lung tissue visualized 1.3 cm in fluid pocket. Left skin surface to fluid distance: 2.9 cm Pulmonologists are able to review the images in the patient?s EMR. No significant right-sided pleural effusion on 3 images saved. Small to tiny left pleural effusion. IMPRESSIONS: As above.
--- NOTE | 2019-09-02 13:51 | P.PN ---
Subjective Progress Note Date: 09/02/19 CHIEF COMPLAINT: Status post fall with multiple rib fractures HISTORY OF PRESENT ILLNESS: The patient is a 88-year-old male with multiple medical comorbidities including anticoagulation status post fall from multiple stairs sustaining left rib fractures 5, 6, 7. He's had severe chest pain from his rib fractures requiring placement of epidural. Pulmonary following. He is more comfortable today. He has moderate productive sputum and has deep coughs. He is tolerating diet. ROS: No reports of nausea and vomiting. No fevers or chills. PHYSICAL EXAM: VITAL SIGNS: Reviewed CONSTITUTIONAL: Well developed and in no acute distress. EYES: Conjuctivae without sclera icterus. Extraocular movements grossly intact. HEAD, EARS, NOSE, THROAT: Moist buccal mucosa. Head is atraumatic, normocepha lic. Hears conversational speech. No nasal drainage. NECK: Supple. No thyroidomegaly. RESPIRATORY: Non-labored respirations and equal bilateral excursions. CARDIOVASCULAR: Palpable 2+ radial pulses. ABDOMEN: Soft. No peritonitis. MUSCULOSKELETAL: No gross deformity of the lower extremities noted. No clubbing. No cyanosis. SKIN: Good skin turgor. Well perfused. NEUROLOGIC: Cranial nerves I through XII grossly intact. No focal or lateralizing signs. PSYCH: Appropriate affect. Alert and oriented to person, place and time. CLINICAL LABS: White blood cell count elevated 14,000. Creatinine elevated over 2.0 from 1.4 ASSESSMENT: 1. Status post fall and anticoagulation 2. Traumatic left-sided rib fractures 3. Acute renal failure on chronic 4. Chronic anticoagulation PLAN: 1. Creatinine elevated on chronic renal insufficiency. Nephrology consultation of benefit. 2. Continue epidural for pain management. Alternatively oral pain medications without nephrotoxicity advised 3. Epidural duration usually for 72 hrs or until Wednesday for removal. Objective - Vital Signs Vital signs: Vital Signs Temp 99.1 F 09/02/19 07:00 Pulse 68 09/02/19 11:29 Resp 14 09/02/19 07:00 BP 100/61 09/02/19 07:00 Pulse Ox 92 L 09/02/19 07:45 Intake & Output 09/01/19 09/02/19 09/02/19 18:59 06:59 18:59 Intake Total 75 100 Output Total 300 Balance 75 -200 Weight 81.647 kg Intake: IV 75 Oral 100 Output: Urine 300 Other: Voiding Method Indwelling Catheter # Voids 3 - Labs CBC & Chem 7: 09/02/19 06:36 09/02/19 06:36 Labs: Abnormal Lab Results - Last 24 Hours (Table) 09/02/19 09/02/19 Range/Units 06:36 06:36 WBC 14.3 H (3.8-10.6) k/uL RBC 3.55 L (4.30-5.90) m/uL Hgb 10.4 L (13.0-17.5) gm/dL Hct 33.7 L (39.0-53.0) % MCHC 30.9 L (31.0-37.0) g/dL Neutrophils # 12.4 H (1.3-7.7) k/uL Potassium 5.3 H (3.5-5.1) mmol/L BUN 49 H (9-20) mg/dL Creatinine 2.06 H (0.66-1.25) mg/dL Glucose 124 H (74-99) mg/dL Assessment and Plan (1) Fall Current Visit: Yes Status: Acute Code(s): W19.XXXA - UNSPECIFIED FALL, INITIAL ENCOUNTER SNOMED Code(s): 5227512 (2) Multiple rib fractures Current Visit: Yes Status: Acute Code(s): S22.49XA - MULTIPLE FRACTURES OF RIBS, UNSP SIDE, INIT FOR CLOS FX SNOMED Code(s): 0495610 (3) CHRISTIANO (acute kidney injury) Current Visit: No Status: Acute Code(s): N17.9 - ACUTE KIDNEY FAILURE, UNSPECIFIED SNOMED Code(s): 05440614 (4) CKD (chronic kidney disease) stage 3, GFR 30-59 ml/min Current Visit: No Status: Acute Code(s): N18.3 - CHRONIC KIDNEY DISEASE, STAGE 3 (MODERATE) SNOMED Code(s): 540577892 (5) COPD (chronic obstructive pulmonary disease) Current Visit: No Status: Acute Code(s): J44.9 - CHRONIC OBSTRUCTIVE PULMONARY DISEASE, UNSPECIFIED SNOMED Code(s): 26221759
--- NOTE | 2019-09-02 13:56 | P.PN ---
Subjective Progress Note Date: 09/02/19 Principal diagnosis: Left-sided rib fractures secondary to fall This is a very pleasant 88-year-old gentleman who follows with Dr. Yadav as his primary care physician. He has a history of coronary artery disease with previous stenting and subsequent bypass surgery 4 in 2002, ischemic cardiomyopathy status post AICD placement, hearing disorder, hyperlipidemia, osteoarthritis, benign prosthetic hypertrophy, sleep apnea not utilizing CPAP, on nocturnal oxygen and inhalers. Lifelong nonsmoker. He has not been seen by a relay tester in the past. He presented here to the emergency room yesterday after sustaining a fall the night before stating he missed a step on the stairs. He fell backwards landing on his left side hitting the left side of his head. He denies any loss of consciousness. There was some bleeding. The patient is on Xarelto. 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 No acute intracranial abnormality was noted. The patient has similar moderate to advanced multilevel spondylotic changes in the cervical spine without malalignment or acute fracture. Computed tomography scan of the chest revealed fractures of the left lateral fifth 6 and seventh ribs. The fifth and sixth rib fractures are segmental fractures. 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 There posterior basilar opacities representing atelectasis versus infection/aspiration pneumonitis. Moderate sized left inguinal hernia. Distal colonic diverticulosis. BPH versus prostate cancer. The patient is seen today in consultation on the regular medical floor. He is currently resting fairly comfortably in bed. Awake and alert in no acute distress. Oriented 3. He is still having issues with pain control regarding the left-sided rib fractures. He is maintaining O2 saturations in the low 90s on 2 L/m per nasal cannula. Temp 99.2. Hemodynamically stable. White count 7.9. Hemoglobin 10.9. Potassium 4.8. INR 1.1. Creatinine 1.49. He has been on [place] for pain control. Bronchodilators, incentive spirometry education. On 09/01/2019 patient seen in follow-up on medical surgical floor. He sitting up in the chair, still having significant amount of pain with deep inspiration and coughing in his left chest. We maintained on oral [place]'s 5 mg every 4 hours as needed for pain, and dilated for breakthrough pain. But she states he had a rough night, and was in a lot of pain. He is working on his incentive spirometer, achieving about 500 mL, oxygen requirement has increased, currently on 6 L is pulse ox is 92%. He is chest x-ray shows basilar atelectasis and possible associated effusions. His labs have been reviewed, showing white blood cell count of 11.2, hemoglobin of 11.3, no BMP done today. Afebrile The patient is seen today 09/02/2018 in follow-up on the regular medical floor. He is currently resting fairly comfortable in bed. He did have episodes of oxygen desaturations and is now placed on BiPAP 08/11 and 70% FiO2 to maintain O2 saturations in the 90s. Today's chest x-ray shows low lung volumes and cardiomegaly with increasing left greater than right bilateral pleural effusions and atelectasis ultrasound of the chest reveals small 2.5 cm pocket on the right and a 4.8 cm pocket on the left. No markings place. White count 14.3. Hemoglobin 10.4. Creatinine 2.06. Potassium 5.3. Bicarb 22. Urinalysis clean. He is continued on DuoNeb inhalations, Zosyn. He had epidural placed for pain management. He needs increased encouragement regarding the use of the incentive spirometer and cough and deep breathing exercises. Objective - Vital Signs Vital signs: Vital Signs Temp 99.1 F 09/02/19 07:00 Pulse 68 09/02/19 11:29 Resp 14 09/02/19 07:00 BP 100/61 09/02/19 07:00 Pulse Ox 92 L 09/02/19 07:45 Intake & Output 09/01/19 09/02/19 09/02/19 18:59 06:59 18:59 Intake Total 75 100 500 Output Total 300 Balance 75 -200 500 Weight 81.647 kg Intake: IV 75 500 Piperacillin-Tazobactam 3 100 .375 gm In Sodium Chloride 0.9% 100 ml @ 25 mls/hr IVPB Q8HR [facility] Rx# :[id number] Sodium Chloride 0.9% 1, 400 000 ml @ 50 mls/hr IV . Q20H [facility] Rx#:[id number] Oral 100 Output: Urine 300 Other: Voiding Method Indwelling Catheter # Voids 3 - Exam GENERAL EXAM: Alert, pleasant, 88-year-old male patient, currently on BiPAP 08/11 and 70% FiO2 to maintain O2 saturations greater than 90%, discomfort from the left-sided chest pain with deep inspiration and coughing HEAD: Normocephalic/atraumatic. EYES: Normal reaction of pupils, equal size. Conjunctiva pink, sclera white. NOSE: Clear with pink turbinates. THROAT: No erythema or exudates. NECK: No masses, no JVD, no thyroid enlargement, no adenopathy. CHEST: No chest wall deformity. Symmetrical expansion. LUNGS: Equal air entry with basilar crackles, left greater than right CVS: Regular rate and rhythm, normal S1 and S2, no gallops, no murmurs, no rubs ABDOMEN: Soft, nontender. No hepatosplenomegaly, normal bowel sounds, no guarding or rigidity. EXTREMITIES: No clubbing, no edema, no cyanosis, 2+ pulses and upper and lower extremities. MUSCULOSKELETAL: Muscle strength and tone normal. SPINE: No scoliosis or deformity SKIN: No rashes CENTRAL NERVOUS SYSTEM: No focal deficits, tone is normal in all 4 extremities. PSYCHIATRIC: Alert and oriented -3. Appropriate affect. Intact judgment and insight. - Labs CBC & Chem 7: 09/02/19 06:36 09/02/19 06:36 Labs: Abnormal Lab Results - Last 24 Hours (Table) 09/02/19 09/02/19 Range/Units 06:36 06:36 WBC 14.3 H (3.8-10.6) k/uL RBC 3.55 L (4.30-5.90) m/uL Hgb 10.4 L (13.0-17.5) gm/dL Hct 33.7 L (39.0-53.0) % MCHC 30.9 L (31.0-37.0) g/dL Neutrophils # 12.4 H (1.3-7.7) k/uL Potassium 5.3 H (3.5-5.1) mmol/L BUN 49 H (9-20) mg/dL Creatinine 2.06 H (0.66-1.25) mg/dL Glucose 124 H (74-99) mg/dL Assessment and Plan Assessment: 1 Trauma secondary to fall with fractures of the left ribs 5, 6 and 7. 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 6 Moderate sized left inguinal hernia 7 Soft tissue measuring 4 x 8 x 4.6 cm protruding in the anterior bladder suspected to represent BPH versus prostate cancer 8 History of BPH 9 Coronary artery disease with previous stent placement and subsequent coronary artery bypass grafting 4 in 2002 10 Ischemic cardio myopathy status post AICD placement, on Xarelto 11 Hearing disorder 12 Hyperlipidemia 13 Obstructive sleep apnea, not on CPAP but utilizing oxygen at night 14 Hypothyroidism 15 History of gout 16 Chronic bronchial asthma on Trelegy and Singulair in the outpatient setting 17 Acute on chronic renal failure, creatinine 1.49 Plan: The patient was seen and evaluated by Dr. Corona. The patient requires BiPAP support now to maintain O2 saturations greater than 90% Ultrasound of the chest did not reveal significant amount of fluid for thoracentesis. Again encouraged increased use of the incentive spirometer and cough and deep breathing exercises Increase activity as tolerated Adequate pain control, now has epidural in place Chest x-ray in a.m. We'll continue to follow and make further recommendations based on his clinical status I, the cosigning physician, performed a history & physical examination of the patient. Lungs sounds with crackles in the posterior bases left greater than r ight, diminished. Maintaining good O2 saturations in the 90s on BiPAP 12/6 and 70% FiO2. I discussed the assessment and plan of care with my nurse practitioner, Sandy Lujan. I attest to the above note as dictated by her.
--- NOTE | 2019-09-02 16:12 | P.PN ---
Progress Note - Text Date: 09/02/2019 Time: 12:36, rib fractures on the left The patient is status post[, rib fractures 5, 6 and 7 on the left.] Thoracic epidural was placed yesterday for postoperative pain control. The patient has no complaints of nausea vomiting or headache. The patient does not complain of any lower extremity numbness or weakness. The epidural is running at 7 mL per hour. The epidural will be maintained and adjusted as needed.
[2019-09-02] MEDS: ATORVASTATIN 10 MG TAB PO SCH (20:21)
[2019-09-02] MEDS: DOXAZOSIN 2 MG TAB PO SCH (20:22)
[2019-09-03] MEDS: SODIUM CHLORIDE 0.9% 1,000 ML IV SCH ×2 (04:00→22:38)
[2019-09-03] MEDS: ROPIVACAINE 250 MG, HYDROMORPHONE (PF) 5 MG in SODIUM CHLORIDE 0.9% 200 ML EPIDURAL PRN (04:01)
[2019-09-03] MEDS: IPRATROPIUM-ALBUTEROL 3 ML NEB INHALATION SCH ×5 (07:47→18:48)
[2019-09-03 07:56] LABS: Calcium 8.4 mg/dL (8.4-10.2); Potassium 5.6 mmol/L (3.5-5.1)
[2019-09-03 08:10] LABS: Basophils % (A) 0 %; Eosinophils # (A) 0.1 k/uL (0-0.7); Eosinophils % (A) 1 %; HGB 9.5 gm/dL (13.0-17.5); Hypochromasia Slight; Lymphocytes # (A) 0.7 k/uL (1.0-4.8); Lymphocytes % (A) 7 %; MCHC 31.8 g/dL (31.0-37.0); MCV 94.4 fL (80.0-100.0); Monocytes # (A) 0.4 k/uL (0-1.0); Monocytes % (A) 5 %; Neutrophils % (A) 86 %; Platelet Count 163 k/uL (150-450); RBC 3.18 m/uL (4.30-5.90); RDW 14.5 % (11.5-15.5); WBC 9.2 k/uL (3.8-10.6)
--- NOTE | 2019-09-03 08:25 | P.PN ---
Progress Note - Text Date: 09/03/2019 Time: 07:47 The patient is status post, rib fractures 5, 6 and 7 on the left, day two. A thoracic epidural is running to provide pain control. The patient has no complaints of nausea vomiting or headache. The patient does not complain of any lower extremity numbness or weakness. The epidural is running at 6 mL per hour. VAS 2-10. The epidural will be maintained and adjusted as needed.
[2019-09-03] MEDS: HEPARIN SODIUM,PORCINE 5,000 UNIT/ML 1 ML VIAL SQ SCH ×2 (08:48→15:16)
[2019-09-03] MEDS: PANTOPRAZOLE 40 MG TABLET PO SCH (08:49)
[2019-09-03] MEDS: LORATADINE 10 MG TAB PO SCH (08:49)
[2019-09-03] MEDS: MONTELUKAST 10 MG TAB PO SCH (08:49)
[2019-09-03] MEDS: METOPROLOL SUCCINATE (ER) 25 MG TAB.ER.24H PO SCH (08:49)
[2019-09-03] MEDS: FINASTERIDE 5 MG TAB PO SCH (08:49)
[2019-09-03] MEDS: CHOLECALCIFEROL 1,000 UNIT TAB PO SCH (08:49)
[2019-09-03] MEDS: TAMSULOSIN 0.4 MG CAP.ER.24H PO SCH (08:49)
[2019-09-03] MEDS: ALLOPURINOL 300 MG TAB PO SCH (08:49)
[2019-09-03] MEDS: PIPERACILLIN-TAZOBACTAM 3.375 GM in SODIUM CHLORIDE 0.9% 100 ML IVPB SCH ×2 (08:50→15:16)
[2019-09-03] MEDS ORDERED: FUROSEMIDE 10 MG/ML 2 ML VIAL IV STA (11:08)
--- NOTE | 2019-09-03 11:11 | P.NPCON ---
History of Present Illness - Reason for Consult acute renal failure, chronic renal failure - History of Present Illness Reason for consultation: Acute kidney injury on chronic kidney disease History of present illness: Patient is a 88-year-old male seen in renal consultation for acute kidney injury on chronic kidney disease. Patient has chronic kidney disease stage III with baseline creatinine in the range of 1.5-2 secondary to nephrosclerosis. Patient presented to the hospital after he sustained a fall. Patient states he did not lose consciousness but his legs gave out. He is noted to have multiple rib fractures and is being followed by surgery. Patient has history of congestive heart failure and has an AICD in place. No history of diabetes. He currently is a Aceves catheter. Patient does admit to labored breathing. Oral intake is fair. No vomiting or diarrhea. Creatinine 2.1 today. Potassium also slightly high at 5.6. Blood pressures have been on the lower side. It was 91/54 this morning. Patient denies regular use of nonsteroidals. Patient was noted to have pleural effusions on chest x-ray but ultrasound did not reveal significant effusions for thoracentesis. He is currently maintained on normal saline at 50 mL an hour. Vital signs are stable. Blood pressure on the lower side. General: The patient appeared well nourished and normally developed. HEENT: Head exam is unremarkable. Neck is without jugular venous distension. LUNGS: Breath sounds decreased. HEART: Rate and Rhythm are regular. First and second heart sounds normal. No murmurs, rubs or gallops. ABDOMEN: Abdominal exam reveals normal bowel sounds. Non-tender and non- distended. No evidence of peritonitis. EXTREMITITES: No clubbing, cyanosis, or edema. Past Medical History Past Medical History: Coronary Artery Disease (CAD), Cancer, COPD, GERD/Reflux, Hearing Disorder / Deafness, Hyperlipidemia, Osteoarthritis (OA), Pneumonia, Prostate Disorder, Renal Disease, Sleep Apnea/CPAP/BIPAP, Thyroid Disorder Additional Past Medical History / Comment(s): GOUT; not currently using CPAP, see Dr Sanchez H&P, edema left lower leg, bruises easily, hx skin cancer Last Myocardial Infarction Date:: 2001 History of Any Multi-Drug Resistant Organisms: None Reported Past Surgical History: AICD, Coronary Bypass/CABG, Heart Catheterization With Stent, Hernia Repair, Orthopedic Surgery, Pacemaker Additional Past Surgical History / Comment(s): 4 Vessel CABG 2002. 2 STENTS 2001. HAS 2 PINS IN RT ACHILLES. parathyroid surgery, AICD/PACEMAKER, [facility]. 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, recent biopsy left ear, maximus cataracts Past Anesthesia/Blood Transfusion Reactions: No Reported Reaction Date of Last Stent Placement:: UNK Type of Cardiac Device: Permanent Pacemaker, AICD Device Placement Date:: unknown Past Psychological History: No Psychological Hx Reported Smoking Status: Never smoker Past Alcohol Use History: None Reported Past Drug Use History: None Reported - Past Family History Father Family Medical History: Congestive Heart Failure (CHF), Diabetes Mellitus Additional Family Medical History / Comment(s): AT AGEG 66 FROM CHF Mother Family Medical History: COPD Additional Family Medical History / Comment(s): AT AGE FROM ANEURYSM Sister(s) Family Medical History: Cancer Medications and Allergies Home Medications Medication Instructions Recorded Confirmed Type Loratadine [Claritin] 10 mg PO DAILY 03/28/14 08/30/19 History Montelukast [Singulair] 10 mg PO DAILY 03/28/14 08/30/19 History Terazosin [Hytrin] 2 mg PO HS 03/28/14 08/30/19 History Rivaroxaban [Xarelto] 15 mg PO DAILY 12/26/14 08/30/19 History Omeprazole [PriLOSEC] 20 mg PO DAILY 12/30/14 08/30/19 History Cholecalciferol [Vitamin D3] 1,000 unit PO DAILY 07/24/17 08/30/19 History Finasteride [Proscar] 5 mg PO DAILY 07/24/17 08/30/19 History Metoprolol Succinate [Toprol XL] 25 mg PO DAILY 07/24/17 08/30/19 History Tamsulosin HCl [Flomax] 0.4 mg PO BID 07/24/17 08/30/19 History Allopurinol [Zyloprim] 300 mg PO DAILY 08/30/19 08/30/19 History Ketoconazole 2% Shampoo [Nizoral] 1 applic TOPICAL Q7D 08/30/19 08/30/19 History Magnesium l-Lactate [Mag-Tab Sr] 84 mg PO DAILY 08/30/19 08/30/19 History Simvastatin [Zocor] 20 mg PO HS 08/30/19 08/30/19 History Allergies Allergy/AdvReac Type Severity Reaction Status Date / Time smoke Allergy Dyspnea Uncoded 08/30/19 21:32 Physical Exam Vitals: Vital Signs Temp Pulse Pulse Resp BP Pulse Ox 09/03/19 07:11 98.5 F 69 17 91/54 93 L 09/03/19 02:38 98.8 F 66 20 110/65 90 L 09/02/19 21:24 98.7 F 63 16 104/60 96 09/02/19 19:53 72 09/02/19 19:40 68 09/02/19 15:46 76 09/02/19 15:37 72 09/02/19 11:52 98.3 F 63 14 95/55 95 09/02/19 11:29 68 09/02/19 11:19 68 Intake and Output 09/02/19 09/03/19 09/03/19 22:59 06:59 14:59 Intake Total 166.333 633.667 Output Total 500 Balance 166.333 133.667 Intake: Intake, IV Titration 156.333 43.667 Amount Ropivacaine 250 mg 156.333 43.667 Hydromorphone (Pf) 5 mg In Sodium Chloride 0.9% 200 ml @ Per Protocol EPIDURAL .Q0M PRN Rx#: [id number] Oral 10 590 Output: Urine 500 Uretheral (Aceves) 500 Other: Voiding Method Indwelling Catheter Indwelling Catheter Results - Lab Results Most recent lab results Calcium 8.4 mg/dL (8.4-10.2) 09/03/19 06:53 09/03/19 06:53 09/03/19 06:53 Assessment and Plan Plan: Assessment: 1. Acute kidney injury secondary to ATN secondary to hypotension. Creatinine 2.21 today. Urinalysis benign. No hydronephrosis noted on CAT scan. 2. Chronic kidney disease stage III with baseline creatinine in the range of 1.5-2 secondary to no for cirrhosis. 3. Status post fall with multiple rib fractures. 4. History of CHF. Unknown ejection fraction. Patient does have an AICD. 5. Mild hyperkalemia secondary to acute kidney injury and metabolic acidosis. 6. Mild fluid overload. Plan: Lasix 20 mg IV once today. Add oral sodium bicarbonate. Discontinue Cardura. Decrease Flomax to once daily. Continue to monitor renal function and urine output. Thank you for the consultation. I will continue to follow the patient with you during his hospital stay.
[2019-09-03] MEDS: SODIUM BICARBONATE TAB 650 MG TAB PO SCH ×2 (11:32→20:52)
--- NOTE | 2019-09-03 12:01 | P.PN ---
Subjective On-call hospitalist covering Dr. Yadav through the weekend This is a pleasant 88 years old male with past medical history of urinary artery disease status post CABG, COPD, GERD, hearing difficulty, hyperlipidemia, osteoarthritis, Sleep apnea not on CPAP/BiPAP, hypothyroidism. Patient was admitted on 1225 for a fall with left rib fracture. Patient had severe pain particularly rate, he underwent epidural procedure yesterday to help with his p ain. This morning patient noticed to be dyspneic he has difficulty talking due to his dyspnea with some greenish phlegm. He rates his pain about 60/10 in severity. His little tachypneic also. Also his requiring 10 L of oxygen via high flow nasal cannula. He is saturating 94%. Aggressive Vitas looks stable. His breathing at a rate of 16 to 18, lap showing worsening leukocytosis from 7.9 up to 14.3 today. Potassium 5.3, creatinine is 2.0. Patient was encouraged to use incentive spirometry which is his not very compliant with it. No significant leg edema. No abdominal pain or tenderness. 09/03/2019 Patient is awake alert, is less respiratory distress, is still have some coughing and left sides chest pain related to his rib fracture. He needed BiPAP last night, at least saturating 93% on ventilator oxygen. His blood pressure is 91/54. His IV fluids were stopped, he got 1 dose of Lasix per nephrology recommendation, nor Flomax and monitor renal function. His ellipses back to normal at 9.2. Creatinine is up to 2.2 with potassium was 5.6. The compliance mgr evaluated the patient, he got 1 dose of Lasix. Cardura has stopped. Lactic acid is 1.0 Objective - Vital Signs Vital signs: Vital Signs Temp 98.5 F 09/03/19 07:11 Pulse 68 09/03/19 11:45 Resp 17 09/03/19 07:11 BP 91/54 09/03/19 07:11 Pulse Ox 93 L 09/03/19 07:11 Intake & Output 09/02/19 09/03/19 09/03/19 18:59 06:59 18:59 Intake Total 656.333 643.667 Output Total 500 Balance 656.333 143.667 Intake: IV 500 Piperacillin-Tazobactam 3 100 .375 gm In Sodium Chloride 0.9% 100 ml @ 25 mls/hr IVPB Q8HR [facility] Rx# :[id number] Sodium Chloride 0.9% 1, 400 000 ml @ 50 mls/hr IV . Q20H [facility] Rx#:[id number] Intake, IV Titration 156.333 43.667 Amount Ropivacaine 250 mg 156.333 43.667 Hydromorphone (Pf) 5 mg In Sodium Chloride 0.9% 200 ml @ Per Protocol EPIDURAL .Q0M [facility] Rx#: [id number] Oral 600 Output: Urine 500 Uretheral (Aceves) 500 Other: Voiding Method Indwelling Catheter - Exam GENERAL: The patient is alert and oriented x3, not in any acute distress. Well developed, well nourished. HEENT: Pupils are round and equally reacting to light. EOMI. No scleral icterus. No conjunctival pallor. Normocephalic, atraumatic. No pharyngeal erythema. No thyromegaly. CARDIOVASCULAR: S1 and S2 present. No murmurs, rubs, or gallops. -PULMONARY: Chest is clear to auscultation, Patient is tachypneic, decreased breath sounds with better air movement and less crepitation in the left lung base ABDOMEN: Soft, nontender, nondistended, normoactive bowel sounds. No palpable organomegaly. MUSCULOSKELETAL: No joint swelling or deformity. EXTREMITIES: No cyanosis, clubbing, or pedal edema. NEUROLOGICAL: Gross neurological examination did not reveal any focal deficits. SKIN: No rashes. no petechiae. - Labs CBC & Chem 7: 09/03/19 06:53 09/03/19 06:53 Labs: Abnormal Lab Results - Last 24 Hours (Table) 09/03/19 09/03/19 Range/Units 06:53 06:53 RBC 3.18 L (4.30-5.90) m/uL Hgb 9.5 L (13.0-17.5) gm/dL Hct 30.0 L (39.0-53.0) % Neutrophils # 8.0 H (1.3-7.7) k/uL Lymphocytes # 0.7 L (1.0-4.8) k/uL Potassium 5.6 H (3.5-5.1) mmol/L Carbon Dioxide 21 L (22-30) mmol/L BUN 63 H (9-20) mg/dL Creatinine 2.21 H (0.66-1.25) mg/dL Glucose 117 H (74-99) mg/dL Assessment and Plan Assessment: Systemic inflammatory response with fever, leukocytosis. Rule out pneumonia Acute kidney injury, mostly secondary to hypertension. Mild hyperkalemia Fall without losing consciousness Left rib fracture ribs 5, 6 and 7 Possible mild acute COPD exacerbation Aortic aneurysm about 4.5 cm Chronic kidney disease, stage III History of coronary artery disease status post CABG GERD Hearing difficulty Hyperlipidemia Osteoarthritis Sleep apnea not on CPAP Hypothyroidism Plan: This is a pleasant 88 years old male presents with fall and rib fracture. Rule out pneumonia. Start the patient empirically on antibiotic, sputum culture. Continue with oxygen and BiPAP as needed. Check bladder scan and urinalysis. Stop IV fluids, stop Cardura. Continue with pain management. Patient is followed by pulmonary and nephrology recommendation Labs and medication were reviewed.. Continue same treatment. Continue with symptomatic treatment. Resume home medication. Monitor lytes and vitals. DVT and GI prophylaxis. Further recommendations of the clinical course of the patient DVT prophylaxis: Subcutaneous heparin GI Prophylaxis: Pepcid PT/OT: Patient might benefit from ECF for rehab Prognosis is guarded Dr. Yadav will resume the care of the patient
--- NOTE | 2019-09-03 15:09 | P.PN ---
Subjective Progress Note Date: 09/03/19 CHIEF COMPLAINT: Status post fall with multiple rib fractures HISTORY OF PRESENT ILLNESS: The patient is a 88-year-old male with multiple medical comorbidities including anticoagulation status post fall from multiple stairs sustaining left rib fractures 5, 6, 7. Secondary to his acute left-sided rib fractures, epidural was placed. He is more comfortable. He has moderate productive sputum. ROS: No reports of nausea and vomiting. No fevers or chills. PHYSICAL EXAM: VITAL SIGNS: Reviewed CONSTITUTIONAL: Well developed and in no acute distress. EYES: Conjuctivae without sclera icterus. Extraocular movements grossly intact. HEAD, EARS, NOSE, THROAT: Moist buccal mucosa. Head is atraumatic, normocephalic. Hears conversational speech. No nasal drainage. NECK: Supple. RESPIRATORY: Non-labored respirations and equal bilateral excursions. CARDIOVASCULAR: Palpable 2+ radial pulses. ABDOMEN: Soft. No peritonitis. MUSCULOSKELETAL: No gross deformity of the lower extremities noted. No clubbing. No cyanosis. SKIN: Good skin turgor. Well perfused. NEUROLOGIC: Cranial nerves I through XII grossly intact. No focal or lateralizing signs. PSYCH: Appropriate affect. Alert and oriented to person, place and time. CLINICAL LABS: White blood cell count elevated 14,000 now normal, 9000. Creatinine elevated over 2.0 from 1.4, now up to 2.2 ASSESSMENT: 1. Status post fall on anticoagulation 2. Traumatic left-sided rib fractures 3. Acute renal failure on chronic 4. Chronic anticoagulation PLAN: 1. Continue epidural at least every Wednesday. 2. Only alternatives for pain medication that are non-nephrotoxic is advised 3. Pulmonary following. 4. Will need rehab Objective - Vital Signs Vital signs: Vital Signs Temp 98.5 F 09/03/19 07:11 Pulse 68 09/03/19 11:57 Resp 17 09/03/19 07:11 BP 91/54 09/03/19 07:11 Pulse Ox 93 L 09/03/19 07:11 Intake & Output 09/02/19 09/03/19 09/03/19 18:59 06:59 18:59 Intake Total 656.333 643.667 500 Output Total 500 Balance 656.333 143.667 500 Intake: IV 500 500 Piperacillin-Tazobactam 3 100 100 .375 gm In Sodium Chloride 0.9% 100 ml @ 25 mls/hr IVPB Q8HR [facility] Rx# :[id number] Sodium Chloride 0.9% 1, 400 400 000 ml @ 50 mls/hr IV . Q20H [facility] Rx#:[id number] Intake, IV Titration 156.333 43.667 Amount Ropivacaine 250 mg 156.333 43.667 Hydromorphone (Pf) 5 mg In Sodium Chloride 0.9% 200 ml @ Per Protocol EPIDURAL .Q0M PRN Rx#: [id number] Oral 600 Output: Urine 500 Uretheral (Aceves) 500 Other: Voiding Method Indwelling Catheter Indwelling Catheter - Labs CBC & Chem 7: 09/03/19 06:53 09/03/19 06:53 Labs: Abnormal Lab Results - Last 24 Hours (Table) 09/03/19 09/03/19 Range/Units 06:53 06:53 RBC 3.18 L (4.30-5.90) m/uL Hgb 9.5 L (13.0-17.5) gm/dL Hct 30.0 L (39.0-53.0) % Neutrophils # 8.0 H (1.3-7.7) k/uL Lymphocytes # 0.7 L (1.0-4.8) k/uL Potassium 5.6 H (3.5-5.1) mmol/L Carbon Dioxide 21 L (22-30) mmol/L BUN 63 H (9-20) mg/dL Creatinine 2.21 H (0.66-1.25) mg/dL Glucose 117 H (74-99) mg/dL Assessment and Plan (1) Fall Current Visit: Yes Status: Acute Code(s): W19.XXXA - UNSPECIFIED FALL, INITIAL ENCOUNTER SNOMED Code(s): 7753420 (2) Multiple rib fractures Current Visit: Yes Status: Acute Code(s): S22.49XA - MULTIPLE FRACTURES OF RIBS, UNSP SIDE, INIT FOR CLOS FX SNOMED Code(s): 4885553 (3) CHRISTIANO (acute kidney injury) Current Visit: No Status: Acute Code(s): N17.9 - ACUTE KIDNEY FAILURE, UNSPECIFIED SNOMED Code(s): 59218517 (4) CKD (chronic kidney disease) stage 3, GFR 30-59 ml/min Current Visit: No Status: Acute Code(s): N18.3 - CHRONIC KIDNEY DISEASE, STAGE 3 (MODERATE) SNOMED Code(s): 281401872 (5) COPD (chronic obstructive pulmonary disease) Current Visit: No Status: Acute Code(s): J44.9 - CHRONIC OBSTRUCTIVE PULMONARY DISEASE, UNSPECIFIED SNOMED Code(s): 62058911
[2019-09-03] MEDS: ATORVASTATIN 10 MG TAB PO SCH (20:52)
[2019-09-04] MEDS: HEPARIN SODIUM,PORCINE 5,000 UNIT/ML 1 ML VIAL SQ SCH ×5 (00:02→23:50)
[2019-09-04] MEDS: PIPERACILLIN-TAZOBACTAM 3.375 GM in SODIUM CHLORIDE 0.9% 100 ML IVPB SCH ×3 (00:03→21:38)
[2019-09-04 07:36] LABS: Basophils % (A) 0 %; Eosinophils # (A) 0.2 k/uL (0-0.7); Eosinophils % (A) 2 %; HCT 28.9 % (39.0-53.0); HGB 9.5 gm/dL (13.0-17.5); Lymphocytes # (A) 0.8 k/uL (1.0-4.8); Lymphocytes % (A) 11 %; MCH 30.7 pg (25.0-35.0); MCHC 32.8 g/dL (31.0-37.0); MCV 93.5 fL (80.0-100.0); Monocytes # (A) 0.5 k/uL (0-1.0); Monocytes % (A) 6 %; Neutrophils # (A) 5.7 k/uL (1.3-7.7); Neutrophils % (A) 79 %; Platelet Count 174 k/uL (150-450); RBC 3.09 m/uL (4.30-5.90); RDW 14.6 % (11.5-15.5); WBC 7.3 k/uL (3.8-10.6)
[2019-09-04 08:01] LABS: Calcium 8.1 mg/dL (8.4-10.2); Magnesium 1.9 mg/dL (1.6-2.3); Potassium 5.5 mmol/L (3.5-5.1)
--- NOTE | 2019-09-04 09:15 | P.PN ---
Progress Note - Text Progress Note Date: 09/04/19 (Time 6:30) The patient is status post rib fractures 5, 6 and 7 on the left, day 4. A thoracic epidural is running to provide pain control. The patient has mild complaints of nausea and a non-positional headache. The patient does not complain of any lower extremity numbness or weakness. The e pidural is running at 6 mL per hour. VAS 5-9/10. Dressing site clean, dry and intact. Incentive spirometry 750ml. Motor and sensory in b/l lower extremities intact. The epidural will be maintained and adjusted as needed.
[2019-09-04] MEDS: IPRATROPIUM-ALBUTEROL 3 ML NEB INHALATION SCH ×4 (09:24→20:34)
[2019-09-04] MEDS: ALLOPURINOL 300 MG TAB PO SCH (10:11)
[2019-09-04] MEDS: CHOLECALCIFEROL 1,000 UNIT TAB PO SCH (10:11)
[2019-09-04] MEDS: LORATADINE 10 MG TAB PO SCH (10:11)
[2019-09-04] MEDS: METOPROLOL SUCCINATE (ER) 25 MG TAB.ER.24H PO SCH (10:11)
[2019-09-04] MEDS: MONTELUKAST 10 MG TAB PO SCH (10:11)
[2019-09-04] MEDS: FINASTERIDE 5 MG TAB PO SCH (10:11)
[2019-09-04] MEDS: PANTOPRAZOLE 40 MG TABLET PO SCH (10:11)
[2019-09-04] MEDS: SODIUM BICARBONATE TAB 650 MG TAB PO SCH ×2 (10:11→21:41)
[2019-09-04] MEDS: TAMSULOSIN 0.4 MG CAP.ER.24H PO SCH (10:12)
[2019-09-04] MEDS: ROPIVACAINE 250 MG, HYDROMORPHONE (PF) 5 MG in SODIUM CHLORIDE 0.9% 200 ML EPIDURAL PRN (10:12)
[2019-09-04] MEDS ORDERED: FUROSEMIDE 10 MG/ML 2 ML VIAL IV STA (10:19)
--- NOTE | 2019-09-04 10:19 | P.PN ---
<Petra Garza - Last Filed: 09/04/19 10:18> Subjective Progress Note Date: 09/04/19 CHIEF COMPLAINT: Fall HISTORY OF PRESENT ILLNESS: Patient examined this morning. He is sitting up in the chair. He just finished working with physical therapy. He is tolerating diet. Reports decreased appetite. Denies abdominal pain. Denies nausea or vomiting. Epidural is infusing at 6cc/hr. Using IS. Pulling around 750cc. PHYSICAL EXAM: VITAL SIGNS: Reviewed GENERAL: Well-developed in no acute distress. HEENT: No sclera icterus. Extraocular movements grossly intact. Moist buccal mucosa. Head is atraumatic, normocephalic. Hears conversational speech. No nasal drainage. NECK: Supple without lymphadenopathy. CHEST: Non-labored respirations and equal bilateral excursions. CARDIOVASCULAR: Regular rate with regular rhythm. Palpable 2+ radial pulses. ABDOMEN: Soft. Nondistended. Nontender. MUSCULOSKELETAL: No clubbing or cyanosis or edema. NEUROLOGIC: No focal or lateralizing signs. Cranial nerves II through XII grossly intact. PSYCH: Appropriate affect. Alert and oriented to person, place and time. SKIN: Multiple bruises. Laceration to left scalp. No active bleeding. ASSESSMENT: 1. Trauma, status post fall 2. Left rib fractures, 5, 6, 7 3. Recent ER visit for fall, 08/24/19 4. Left scalp laceration 5. penitentiary anticoagulation use, on Xarelto PLAN: Pulmonary on consult for rib fractures Incentive spirometry encouraged Activity as tolerated. PT/OT Continue to hold Xarelto. Subcu heparin for DVT prophylaxis Continue epidural for today. Plan is to remove epidural tomorrow and provide pain management with oral pain medications. Will require ECF at time of discharge Nurse practitioner note has been reviewed by physician. Signing provider agrees with the documented findings, assessment, and plan of care. Objective - Vital Signs Vital signs: Vital Signs Temp 97.7 F 09/04/19 07:10 Pulse 68 09/04/19 09:36 Resp 17 09/04/19 07:10 BP 106/61 09/04/19 07:10 Pulse Ox 96 09/04/19 09:25 Intake & Output 09/03/19 09/04/19 09/04/19 18:59 06:59 18:59 Intake Total 500 1180 281.1 Output Total 500 Balance 500 680 281.1 Intake: IV 500 Piperacillin-Tazobactam 3 100 .375 gm In Sodium Chloride 0.9% 100 ml @ 25 mls/hr IVPB Q8HR [facility] Rx# :[id number] Sodium Chloride 0.9% 1, 400 000 ml @ 50 mls/hr IV . Q20H [facility] Rx#:[id number] Intake, IV Titration 181.1 Amount Ropivacaine 250 mg 181.1 Hydromorphone (Pf) 5 mg In Sodium Chloride 0.9% 200 ml @ Per Protocol EPIDURAL .Q0M PRN Rx#: [id number] Oral 1180 100 Output: Urine 500 Uretheral (Aceves) 500 Other: Voiding Method Indwelling Catheter Indwelling Catheter - Labs CBC & Chem 7: 09/04/19 06:28 09/04/19 06:28 Labs: Abnormal Lab Results - Last 24 Hours (Table) 09/04/19 09/04/19 Range/Units 06:28 06:28 RBC 3.09 L (4.30-5.90) m/uL Hgb 9.5 L (13.0-17.5) gm/dL Hct 28.9 L (39.0-53.0) % Lymphocytes # 0.8 L (1.0-4.8) k/uL Potassium 5.5 H (3.5-5.1) mmol/L Chloride 108 H (98-107) mmol/L Carbon Dioxide 20 L (22-30) mmol/L BUN 79 H (9-20) mg/dL Creatinine 2.45 H (0.66-1.25) mg/dL Glucose 101 H (74-99) mg/dL Calcium 8.1 L (8.4-10.2) mg/dL Microbiology - Last 24 Hours (Table) 09/03/19 00:12 Gram Stain - Preliminary Sputum Sputum Culture - Preliminary <Boznea Bales - Last Filed: 09/04/19 17:47> Subjective As above. Pain is much more tolerable today than 3 days ago. Agree with rehab for discharge from hospital Objective - Vital Signs Vital signs: Vital Signs Temp 98.0 F 09/04/19 14:30 Pulse 66 09/04/19 17:00 Resp 18 09/04/19 14:30 BP 100/57 09/04/19 14:30 Pulse Ox 96 09/04/19 14:30 Intake & Output 09/03/19 09/04/19 09/04/19 18:59 06:59 18:59 Intake Total 500 1180 771.1 Output Total 500 1200 Balance 500 680 -428.9 Intake: IV 500 Piperacillin-Tazobactam 3 100 .375 gm In Sodium Chloride 0.9% 100 ml @ 25 mls/hr IVPB Q8HR [facility] Rx# :[id number] Sodium Chloride 0.9% 1, 400 000 ml @ 50 mls/hr IV . Q20H [facility] Rx#:[id number] Intake, IV Titration 181.1 Amount Ropivacaine 250 mg 181.1 Hydromorphone (Pf) 5 mg In Sodium Chloride 0.9% 200 ml @ Per Protocol EPIDURAL .Q0M [facility] Rx#: [id number] Oral 1180 590 Output: Urine 500 1200 Uretheral (Aceves) 500 1200 Other: Voiding Method Indwelling Catheter Indwelling Catheter Indwelling Catheter - Labs CBC & Chem 7: 09/04/19 06:28 09/04/19 06:28 Labs: Abnormal Lab Results - Last 24 Hours (Table) 09/04/19 09/04/19 Range/Units 06:28 06:28 RBC 3.09 L (4.30-5.90) m/uL Hgb 9.5 L (13.0-17.5) gm/dL Hct 28.9 L (39.0-53.0) % Lymphocytes # 0.8 L (1.0-4.8) k/uL Potassium 5.5 H (3.5-5.1) mmol/L Chloride 108 H (98-107) mmol/L Carbon Dioxide 20 L (22-30) mmol/L BUN 79 H (9-20) mg/dL Creatinine 2.45 H (0.66-1.25) mg/dL Glucose 101 H (74-99) mg/dL Calcium 8.1 L (8.4-10.2) mg/dL Microbiology - Last 24 Hours (Table) 09/03/19 00:12 Gram Stain - Preliminary Sputum Sputum Culture - Preliminary Assessment and Plan (1) Fall Current Visit: Yes Status: Acute Code(s): W19.XXXA - UNSPECIFIED FALL, INITIAL ENCOUNTER SNOMED Code(s): 8146995 (2) Multiple rib fractures Current Visit: Yes Status: Acute Code(s): S22.49XA - MULTIPLE FRACTURES OF RIBS, UNSP SIDE, INIT FOR CLOS FX SNOMED Code(s): 0181197 (3) CHRISTIANO (acute kidney injury) Current Visit: No Status: Acute Code(s): N17.9 - ACUTE KIDNEY FAILURE, UNSPECIFIED SNOMED Code(s): 96218888 (4) CKD (chronic kidney disease) stage 3, GFR 30-59 ml/min Current Visit: No Status: Acute Code(s): N18.3 - CHRONIC KIDNEY DISEASE, STAGE 3 (MODERATE) SNOMED Code(s): 555926238 (5) COPD (chronic obstructive pulmonary disease) Current Visit: No Status: Acute Code(s): J44.9 - CHRONIC OBSTRUCTIVE PULMONARY DISEASE, UNSPECIFIED SNOMED Code(s): 98089531
[2019-09-04] MEDS ORDERED: SODIUM BICARB 8.4% 50 ML SYR (1 MEQ/ML) IV STA (10:20)
--- NOTE | 2019-09-04 10:21 | P.PN ---
Subjective Patient is seen in follow-up for acute kidney injury on chronic kidney disease. Patient has chronic kidney disease stage III with baseline creatinine in the range of 1.5-2 secondary to nephrosclerosis. Renal function is a little worse today. Creatinine 2.45. He remains on high flow nasal cannula. Oral intake is fair. No vomiting. Vital signs are stable. General: The patient appeared well nourished and normally developed. HEENT: Head exam is unremarkable. Neck is without jugular venous distension. LUNGS: Breath sounds decreased. HEART: Rate and Rhythm are regular. First and second heart sounds normal. No murmurs, rubs or gallops. ABDOMEN: Abdominal exam reveals normal bowel sounds. Non-tender and non- distended. No evidence of peritonitis. EXTREMITITES: No clubbing, cyanosis, or edema. Objective - Vital Signs Vital signs: Vital Signs Temp 97.7 F 09/04/19 07:10 Pulse 68 09/04/19 09:36 Resp 17 09/04/19 07:10 BP 106/61 09/04/19 07:10 Pulse Ox 96 09/04/19 09:25 Intake & Output 09/03/19 09/04/19 09/04/19 18:59 06:59 18:59 Intake Total 500 1180 281.1 Output Total 500 Balance 500 680 281.1 Intake: IV 500 Piperacillin-Tazobactam 3 100 .375 gm In Sodium Chloride 0.9% 100 ml @ 25 mls/hr IVPB Q8HR [facility] Rx# :[id number] Sodium Chloride 0.9% 1, 400 000 ml @ 50 mls/hr IV . Q20H [facility] Rx#:[id number] Intake, IV Titration 181.1 Amount Ropivacaine 250 mg 181.1 Hydromorphone (Pf) 5 mg In Sodium Chloride 0.9% 200 ml @ Per Protocol EPIDURAL .Q0M [facility] Rx#: [id number] Oral 1180 100 Output: Urine 500 Uretheral (Aceves) 500 Other: Voiding Method Indwelling Catheter Indwelling Catheter - Labs CBC & Chem 7: 09/04/19 06:28 09/04/19 06:28 Labs: Abnormal Lab Results - Last 24 Hours (Table) 09/04/19 09/04/19 Range/Units 06:28 06:28 RBC 3.09 L (4.30-5.90) m/uL Hgb 9.5 L (13.0-17.5) gm/dL Hct 28.9 L (39.0-53.0) % Lymphocytes # 0.8 L (1.0-4.8) k/uL Potassium 5.5 H (3.5-5.1) mmol/L Chloride 108 H (98-107) mmol/L Carbon Dioxide 20 L (22-30) mmol/L BUN 79 H (9-20) mg/dL Creatinine 2.45 H (0.66-1.25) mg/dL Glucose 101 H (74-99) mg/dL Calcium 8.1 L (8.4-10.2) mg/dL Microbiology - Last 24 Hours (Table) 09/03/19 00:12 Gram Stain - Preliminary Sputum Sputum Culture - Preliminary Assessment and Plan Plan: Assessment: 1. Acute kidney injury secondary to ATN secondary to hypotension. Creatinine 2.45 today. Urinalysis benign. No hydronephrosis noted on CAT scan. 2. Chronic kidney disease stage III with baseline creatinine in the range of 1. 5-2 secondary to nephrosclerosis. 3. Status post fall with multiple rib fractures. 4. History of CHF. Unknown ejection fraction. Patient does have an AICD. 5. Mild hyperkalemia secondary to acute kidney injury and metabolic acidosis. 6. Mild fluid overload. Plan: Remains off IV fluids. Repeat lasix 20 mg IV once today. Maintain oral sodium bicarbonate. Discontinued Cardura. Decreased Flomax to once daily. Continue to monitor renal function and urine output. Low potassium diet.
--- NOTE | 2019-09-04 14:21 | PN ---
PROGRESS NOTE This is an 88-year-old white male, status post left rib fractures x3. His hemoglobin is 9.5 today. Sodium 137, potassium 5.5, BUN 79, creatinine 2.45. Calcium is 8.1. Remains being seen by trauma specialist who has left rib fractures 5, 6, 7 and left scalp laceration. His creatinine is baseline. He is on Xarelto long-term for atrial fibrillation. He had some kind epidural catheter for pain control, was switched to increase his oral pain medicines as that has been discontinued. Getting ready for an ECF. My recommendation is to put him back on his the blood thinner as soon as possible as long as he is not a serious fall risk to prevent a stroke. MMODL / IJN: [id number] /
[2019-09-04] MEDS: HYDROcodone/APAP 10-325MG 1 EACH TAB PO PRN ×2 (17:33→23:51)
[2019-09-04] MEDS: ATORVASTATIN 10 MG TAB PO SCH (21:41)
[2019-09-05 08:30] LABS: Calcium 8.2 mg/dL (8.4-10.2); Potassium 4.7 mmol/L (3.5-5.1)
--- NOTE | 2019-09-05 09:03 | CDI ---
Documentation Clarification Form 2nd Request Date: 08/31/2019 01:13:00 PM From: Eleanor Sullivan RN, CCDS Admit Date: 08/30/2019 01:31:00 PM Patient Name: Blayne Tolentino Visit Number: [id number] ATTENTION: The Clinical Documentation Specialists (CDI) and [facility] Coding Staff appreciate your assistance in clarifying documentation. Please respond to the clarification below the line at the bottom and electronically sign. The CDI & [facility] Coding staff will review the response and follow-up if needed. Please note: Queries are made part of the Legal Health Record. If you have any questions, please contact the author of this message via ITS. Dr. Dg Yadav Chronic renal disease is documented in the Attending process note on 08/31 and requires further specificity. History/Risk Factors: CAD, Renal disease, CABG, Stents Clinical Indicators: Current BUN: 34/31 CR: 1.52/1.49 GFR: 48/49 08/24 Patients Baseline BUN/CR/GFR:51/1.75/35 Treatment: IVF @ 50 cc/hr In order to capture the severity of condition, please clarify if the condition signifies: CKD Stage 1 (GFR > 90) CKD Stage 2 (GFR 60-89) CKD Stage 3 (GFR 30-59) CKD Stage 4 (GFR 15-29) CKD Stage 5 (GFR <15) ESRD Other, please specify Unable to determine (Last Revision: December 2017) MTDD
--- NOTE | 2019-09-05 09:05 | CDI ---
Documentation Clarification Form Date: 08/31/2019 01:21:00 PM From: Eleanor Sullivan RN, CCDS Admit Date: 08/30/2019 01:31:00 PM Patient Name: Blayne Tolentino Visit Number: [id number] ATTENTION: The Clinical Documentation Specialists (CDI) and [facility] Coding Staff appreciate your assistance in clarifying documentation. Please respond to the clarification below the line at the bottom and electronically sign. The CDI & [facility] Coding staff will review the response and follow-up if needed. Please note: Queries are made part of the Legal Health Record. If you have any questions, please contact the author of this message via ITS. Dr. Dg Yadav Diastolic heart failure is documented in the attending progress note on 08/31/19 and requires further specificity. History/Risk Factors: CAD, CABG, Stents Clinical Indicators: VS/Pulse OX: Temp 97.7, HR 91, RR 18, B/P 129/79, spo2 92% ra BNP: not checked Echocardiogram Results: no results available CT AP:"ADDITIONAL PROMINENT POSTERIOR BASILAR OPACITIES COULD REPRESENT PROMINENT AREAS OF ATELECTASIS VERSUS INFECTIOUS/ASPIRATION PNEUMONITIS.CLINICALLY CORRELATE." Treatment: Toprol XL 25 mg PO QD IVF @ 50 cc/hr In your professional opinion, can you please clarify the acuity of CHF if known? Diastolic Heart Failure: Acute Chronic Acute on Chronic Unable to Determine Other, please specify (Last Revision: December 2017) MTDD
--- NOTE | 2019-09-05 09:13 | CDI ---
Documentation Clarification Form Date: 09/05/2019 09:08:46 AM From: Eleanor Sullivan RN, CCDS Admit Date: 08/30/2019 01:31:00 PM Patient Name: Blayne Tolentino Visit Number: [id number] ATTENTION: The Clinical Documentation Specialists (CDI) and [facility] Coding Staff appreciate your assistance in clarifying documentation. Please respond to the clarification below the line at the bottom and electronically sign. The CDI & [facility] Coding staff will review the response and follow-up if needed. Please note: Queries are made part of the Legal Health Record. If you have any questions, please contact the author of this message via ITS. Dr. Dg Yadav Atrial Fibrillation is documented in the 09/04 progress note and requires further specificity. History/Risk Factors: CHRISTIANO on CKD stage 3, CHF, fall with multiple rib fractures Clinical Indicators: 09/04 Attending progress note: "He is on Xarelto long-term for atrial fibrillation." EKG/telemetry: not done Treatment: Xarelto In your professional opinion, can you please clarify the type of Atrial Fibrillation, if known? Chronic/Permanent Paroxysmal Persistent Other, please specify Unable to determine (Last Revision: December 2017) MTDD
[2019-09-05] MEDS: IPRATROPIUM-ALBUTEROL 3 ML NEB INHALATION SCH ×4 (09:14→20:08)
[2019-09-05] MEDS: PIPERACILLIN-TAZOBACTAM 3.375 GM in SODIUM CHLORIDE 0.9% 100 ML IVPB SCH ×2 (10:03→20:40)
[2019-09-05] MEDS: METOPROLOL SUCCINATE (ER) 25 MG TAB.ER.24H PO SCH (10:04)
[2019-09-05] MEDS: PANTOPRAZOLE 40 MG TABLET PO SCH (10:04)
[2019-09-05] MEDS: SODIUM BICARBONATE TAB 650 MG TAB PO SCH ×2 (10:04→20:40)
[2019-09-05] MEDS: LORATADINE 10 MG TAB PO SCH (10:04)
[2019-09-05] MEDS: MONTELUKAST 10 MG TAB PO SCH (10:04)
[2019-09-05] MEDS: ALLOPURINOL 100 MG TAB PO SCH (10:04)
[2019-09-05] MEDS: TAMSULOSIN 0.4 MG CAP.ER.24H PO SCH (10:04)
[2019-09-05] MEDS: FINASTERIDE 5 MG TAB PO SCH (10:04)
[2019-09-05] MEDS: CHOLECALCIFEROL 1,000 UNIT TAB PO SCH (10:05)
[2019-09-05] MEDS: HEPARIN SODIUM,PORCINE 5,000 UNIT/ML 1 ML VIAL SQ SCH ×3 (10:05→23:54)
--- NOTE | 2019-09-05 12:02 | P.PN ---
Subjective Progress Note Date: 09/05/19 Seen and examined for the follow-up of acute kidney injury. Objective - Vital Signs Vital signs: Vital Signs Temp 97.6 F 09/05/19 07:20 Pulse 68 09/05/19 09:26 Resp 20 09/05/19 07:20 BP 128/87 09/05/19 07:20 Pulse Ox 93 L 09/05/19 07:20 Intake & Output 09/04/19 09/05/19 09/05/19 18:59 06:59 18:59 Intake Total 971.1 40 150 Output Total 1200 1300 350 Balance -228.9 -1260 -200 Intake: Intake, IV Titration 181.1 Amount Ropivacaine 250 mg 181.1 Hydromorphone (Pf) 5 mg In Sodium Chloride 0.9% 200 ml @ Per Protocol EPIDURAL .Q0M [facility] Rx#: [id number] Oral 790 40 150 Output: Urine 1200 1300 350 Uretheral (Aceves) 1200 1300 Other: Voiding Method Indwelling Catheter Indwelling Catheter - Exam No acute distress S1-S2 heard Lungs clear Abdomen soft Trace edema - Labs CBC & Chem 7: 09/04/19 06:28 09/05/19 06:52 Labs: Abnormal Lab Results - Last 24 Hours (Table) 09/05/19 Range/Units 06:52 Chloride 109 H (98-107) mmol/L BUN 77 H (9-20) mg/dL Creatinine 2.24 H (0.66-1.25) mg/dL Calcium 8.2 L (8.4-10.2) mg/dL Assessment and Plan Assessment: #1 acute kidney injury secondary to ischemic ATN. #2 on a kidney disease stage III baseline creatinine 1.5-2.0 MG per DL. #3 status post fall with multiple rib fractures #4 CHF #5 hyperkalemia resolved #6 metabolic acidosis Plan: #1 renal function stable and improving. Continue to monitor. #2 monitor off fluids and diuretics. #3 labs in the morning
[2019-09-05 15:08] VITALS: BMI 29.0
[2019-09-05] MEDS: HYDROcodone/APAP 10-325MG 1 EACH TAB PO PRN ×2 (16:22→20:40)
--- NOTE | 2019-09-05 19:10 | CT ---
EXAMINATION TYPE: CT chest wo con DATE OF EXAM: 09/05/2019 COMPARISON: 03/10/2019 HISTORY: Hypoxemia and cough. CT DLP: 479.1 mGycm Automated exposure control for dose reduction was used. There are bilateral pleural effusions. There is bilateral basilar pulmonary infiltrates and atelectas is. Heart is enlarged. There is no pericardial effusion. There is 1 cm calcified granuloma right lowe r lobe. There is coronary artery dense calcification. 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 There is no mediastinal adenopathy. There are no hilar masses. There is multilevel spondylotic change in the thoracic spine. There is mild thoracic kyphosis. There are sternal wires. I see no focal bone destruction. IMPRESSION: Cardiomegaly with pleural effusions and basilar pulmonary infiltrates and atelectasis. This probably relates to chronic congestive heart failure. Abnormalities appear new compared to last exam. Stable thoracic aortic aneurysm.
--- NOTE | 2019-09-05 20:24 | PN ---
PROGRESS NOTE This is an 88-year-old white male who remains with left rib fractures x3, COPD, difficulty breathing. His pain level is from 8/10 down to 6/10. Pulse is 57, temperature 97.7. He is on 6 L high-flow oxygen, saturating 98, blood pressure 126/62. CARDIOVASCULAR: S1, S2. LUNGS: Decreased breath sounds. Hemoglobin is 9.5, BUN is 77, creatinine 2.24. ASSESSMENT: 1. Acute kidney injury secondary to ischemic acute tubular necrosis. 2. Chronic kidney disease, stage III. 3. Status post fall with multiple rib fractures. 4. Congestive heart failure. 5. Hyperkalemia. 6. Metabolic acidosis. Repeat chest x-rays or do a CT scan on his lung maybe to see about his breathing getting worse. Continue on DuoNeb updrafts. Get Pulmonary to see him again due to his being on 6 L high-flow oxygen. MMODL / IJN: [id number] /
[2019-09-05] MEDS: ATORVASTATIN 10 MG TAB PO SCH (20:40)
--- NOTE | 2019-09-05 23:47 | DS ---
DISCHARGE SUMMARY DISCHARGE SUMMARY ADDENDUM: Chronic kidney disease, stage IIIB. Acute on chronic diastolic congestive heart failure. Paroxysmal atrial fibrillation. MMODL / IJN: [id number] /
[2019-09-06] MEDS: HYDROcodone/APAP 10-325MG 1 EACH TAB PO PRN ×2 (08:21→15:27)
[2019-09-06] MEDS: CHOLECALCIFEROL 1,000 UNIT TAB PO SCH (08:21)
[2019-09-06] MEDS: SODIUM BICARBONATE TAB 650 MG TAB PO SCH ×2 (08:21→20:21)
[2019-09-06] MEDS: HEPARIN SODIUM,PORCINE 5,000 UNIT/ML 1 ML VIAL SQ SCH ×3 (08:21→23:06)
[2019-09-06] MEDS: LORATADINE 10 MG TAB PO SCH (08:22)
[2019-09-06] MEDS: FINASTERIDE 5 MG TAB PO SCH (08:22)
[2019-09-06] MEDS: PANTOPRAZOLE 40 MG TABLET PO SCH (08:22)
[2019-09-06] MEDS: TAMSULOSIN 0.4 MG CAP.ER.24H PO SCH (08:22)
[2019-09-06] MEDS: METOPROLOL SUCCINATE (ER) 25 MG TAB.ER.24H PO SCH (08:22)
[2019-09-06] MEDS: PIPERACILLIN-TAZOBACTAM 3.375 GM in SODIUM CHLORIDE 0.9% 100 ML IVPB SCH ×2 (08:22→20:21)
[2019-09-06] MEDS: ALLOPURINOL 100 MG TAB PO SCH (08:22)
[2019-09-06] MEDS: MONTELUKAST 10 MG TAB PO SCH (08:22)
[2019-09-06] MEDS: IPRATROPIUM-ALBUTEROL 3 ML NEB INHALATION SCH ×4 (09:03→19:36)
--- NOTE | 2019-09-06 11:33 | P.PN ---
Subjective Progress Note Date: 09/06/19 Seen and examined for the follow-up of acute kidney injury. Objective - Vital Signs Vital signs: Vital Signs Temp 97.9 F 09/06/19 07:45 Pulse 60 09/06/19 09:14 Resp 16 09/06/19 07:45 BP 122/62 09/06/19 07:45 Pulse Ox 94 L 09/06/19 07:45 Intake & Output 09/05/19 09/06/19 09/06/19 18:59 06:59 18:59 Intake Total 700 150 Output Total 650 400 450 Balance 50 -250 -450 Weight 81.647 kg Intake: Intake, IV Titration 200 Amount Lactated Ringers 1,000 ml 100 @ 0 mls/hr IV [facility] Rx#:[id number] Piperacillin-Tazobactam 3 100 .375 gm In Sodium Chloride 0.9% 100 ml @ 25 mls/hr IVPB Q12HR [facility] Rx #:[id number] Oral 500 150 Output: Urine 650 400 450 Uretheral (Aceves) 400 Other: Voiding Method Indwelling Catheter Indwelling Catheter - Exam No acute distress S1-S2 heard Lungs clear Abdomen soft Trace edema - Labs CBC & Chem 7: 09/04/19 06:28 09/05/19 06:52 Labs: Microbiology - Last 24 Hours (Table) 09/03/19 00:12 Gram Stain - Final Sputum Sputum Culture - Final Assessment and Plan Assessment: #1 acute kidney injury secondary to ischemic ATN. #2 on a kidney disease stage III baseline creatinine 1.5-2.0 MG per DL. #3 status post fall with multiple rib fractures #4 CHF #5 hyperkalemia resolved #6 metabolic acidosis Plan: #1 renal function stable and improving. Continue to monitor. #2 monitor off fluids and diuretics. #3 labs in the morning
[2019-09-06] MEDS: ATORVASTATIN 10 MG TAB PO SCH (20:21)
--- NOTE | 2019-09-06 21:06 | PN ---
PROGRESS NOTE 88-year-old white male with rib fractures, T6, 7 and 9 on the left lateral. Appears to be breathing a little bit better. He is down to 4 L oxygen, from 6 high flow down to 4. Satting 94%. Blood pressure 122/62, respiratory 16, pulse 60, temp 97.9. CARDIOVASCULAR: S1, S2. LUNGS: Show decreased breath sounds. Rales at the bases. ABDOMEN: Soft. Trace edema. Hemoglobin is 9.5. ASSESSMENT: 1. Rib fractures. 2. Acute on chronic kidney disease stage 3. 3. Multiple rib fractures. 4. Congestive heart failure. 5. Pleural effusions. 6. Hyperkalemia. 7. Metabolic acidosis. 8. Chronic obstructive pulmonary disease. 9. Acute kidney injury, ischemic acute tubular necrosis. 10.Fall with rib fractures. The patient will need rehab placement in the rehab center, possibly [facility]. Continue with current treatment. We will get Pulmonary to see him for increased oxygen needs and pleural effusions. See if they have anymore recommendations. MMODL / IJN: [id number] /
[2019-09-07] MEDS: HYDROcodone/APAP 10-325MG 1 EACH TAB PO PRN ×2 (00:01→07:53)
[2019-09-07 07:37] LABS: Basophils % (A) 0 %; Eosinophils # (A) 0.2 k/uL (0-0.7); Eosinophils % (A) 3 %; HCT 28.7 % (39.0-53.0); Hypochromasia Slight; Lymphocytes % (A) 19 %; MCHC 31.5 g/dL (31.0-37.0); MCV 95.2 fL (80.0-100.0); Mean Platelet Volume 7.7; Monocytes # (A) 0.4 k/uL (0-1.0); Monocytes % (A) 6 %; Neutrophils # (A) 3.8 k/uL (1.3-7.7); Neutrophils % (A) 69 %; Platelet Count 210 k/uL (150-450); RBC 3.01 m/uL (4.30-5.90); RDW 14.5 % (11.5-15.5); WBC 5.5 k/uL (3.8-10.6)
[2019-09-07 07:39] LABS: Albumin 2.5 g/dL (3.5-5.0); Calcium 8.6 mg/dL (8.4-10.2); Potassium 4.7 mmol/L (3.5-5.1); Total Bilirubin 0.5 mg/dL (0.2-1.3); Total Protein 4.9 g/dL (6.3-8.2)
[2019-09-07] MEDS: ALLOPURINOL 100 MG TAB PO SCH (07:47)
[2019-09-07] MEDS: FINASTERIDE 5 MG TAB PO SCH (07:48)
[2019-09-07] MEDS: CHOLECALCIFEROL 1,000 UNIT TAB PO SCH (07:49)
[2019-09-07] MEDS: SODIUM BICARBONATE TAB 650 MG TAB PO SCH (07:50)
[2019-09-07] MEDS: TAMSULOSIN 0.4 MG CAP.ER.24H PO SCH (07:50)
[2019-09-07] MEDS: PANTOPRAZOLE 40 MG TABLET PO SCH (07:51)
[2019-09-07] MEDS: PIPERACILLIN-TAZOBACTAM 3.375 GM in SODIUM CHLORIDE 0.9% 100 ML IVPB SCH (07:51)
[2019-09-07] MEDS: LORATADINE 10 MG TAB PO SCH (07:51)
[2019-09-07] MEDS: MONTELUKAST 10 MG TAB PO SCH (07:53)
[2019-09-07] MEDS: METOPROLOL SUCCINATE (ER) 25 MG TAB.ER.24H PO SCH (07:54)
[2019-09-07] MEDS: HEPARIN SODIUM,PORCINE 5,000 UNIT/ML 1 ML VIAL SQ SCH (07:54)
[2019-09-07] MEDS: IPRATROPIUM-ALBUTEROL 3 ML NEB INHALATION SCH ×3 (08:10→15:55)
--- NOTE | 2019-09-07 10:14 | P.DS ---
Providers Date of admission: 08/30/19 13:31 Expected date of discharge: 09/07/19 Attending physician: Dg Yadav Consults: 08/30/19 13:30 Consult Physician Urgent Consulting Provider: Roxie Corona Consult Reason/Comments: Rib fractures Do you want consulting provider notified?: Yes Consult Physician Urgent Consulting Provider: Dg Yadav Consult Reason/Comments: Medical management Do you want consulting provider notified?: Yes 09/01/19 09:46 Consult to Anesthesia Routine Consulting Provider: Anesthesia,Services Consult Reason/Comments: rib fractures, possible epidural 09/02/19 13:53 Consult Physician Routine Consulting Provider: Nica Shaw Consult Reason/Comments: acute on chronic renal failure Do you want consulting provider notified?: Yes 09/06/19 15:51 Consult Physician Routine Consulting Provider: Roxie Corona Consult Reason/Comments: pleural effusion Do you want consulting provider notified?: Yes Primary care physician: Dg Yadav [facility] Course: Final Diagnoses: Trauma secondary to fall without syncope with fractures of left ribs 5, 6, 7. Status post epidural catheter for pain management. Posterior basilar opacity secondary to atelectasis, possible aspiration pneumonitis Acute hypoxic respiratory failure secondary to the above Right lower lobe calcified granuloma 1 cm, further follow-up outpatient Acute on chronic diastolic CHF Metabolic acidosis Paroximal atrial fibrillation. Sleep apnea, not on CPAP Cardiomegaly CAD, status post CABG and prior stent placements Ischemic cardiomyopathy, status post AICD Hyperlipidemia Moderate left inguinal hernia Gastroesophageal reflux disease Stable Ascending Aortic aneurysm, 4.[address], follow-up outpatient Anterior bladder soft tissue measuring 4 x 8 x 4.6 cm, suspected BPH versus prostate cancer in a patient with history of BPH, follow-up outpatient No hydronephrosis per CT reported Acute on chronic renal failure, stage III. Acute secondary to ATN related to hy potension. Hypothyroidism Osteoarthritis Hearing disorder Chronic bronchial asthma Hospital course: This is an 88-year-old gentleman presented with left rib fractures, 5, 6, 7 status post fall and multiple other medical issues. Evaluated by surgery, pulmonary, nephrology. Significant clinical improvement. Patient is being discharged to [facility] subacute rehab in a stable condition with guarded prognosis, pending clearance from all consults. - Exam GENERAL: alert and oriented x3, no acute distress. CARDIOVASCULAR: S1 and S2 present. No murmurs, rubs, or gallops. -PULMONARY: Chest is clear to auscultation, decreased breath sounds. ABDOMEN: Soft, nontender, nondistended, normoactive bowel sounds. NEUROLOGICAL: no gross focal deficits The impression and plan of care has been dictated as directed. : I performed a history and examination of this patient, discussed the same with the dictator. I agree with the dictator's note ,documented as a scribe. Any additional findings or plans will be noted.. Patient Condition at Discharge: Stable Plan - Discharge Summary Discharge Rx Participant: Yes New Discharge Prescriptions: No Action Terazosin [Hytrin] 2 mg PO HS Loratadine [Claritin] 10 mg PO DAILY Montelukast [Singulair] 10 mg PO DAILY Rivaroxaban [Xarelto] 15 mg PO DAILY Omeprazole [PriLOSEC] 20 mg PO DAILY Finasteride [Proscar] 5 mg PO DAILY Cholecalciferol [Vitamin D3] 1,000 unit PO DAILY Tamsulosin HCl [Flomax] 0.4 mg PO BID Metoprolol Succinate [Toprol XL] 25 mg PO DAILY Simvastatin [Zocor] 20 mg PO HS Ketoconazole 2% Shampoo [Nizoral] 1 applic TOPICAL Q7D Allopurinol [Zyloprim] 300 mg PO DAILY Magnesium l-Lactate [Mag-Tab Sr] 84 mg PO DAILY Discharge Medication List Loratadine [Claritin] 10 mg PO DAILY 03/28/14 [History] Montelukast [Singulair] 10 mg PO DAILY 03/28/14 [History] Terazosin [Hytrin] 2 mg PO HS 03/28/14 [History] Rivaroxaban [Xarelto] 15 mg PO DAILY 12/26/14 [History] Omeprazole [PriLOSEC] 20 mg PO DAILY 12/30/14 [History] Cholecalciferol [Vitamin D3] 1,000 unit PO DAILY 07/24/17 [History] Finasteride [Proscar] 5 mg PO DAILY 07/24/17 [History] Metoprolol Succinate [Toprol XL] 25 mg PO DAILY 07/24/17 [History] Tamsulosin HCl [Flomax] 0.4 mg PO BID 07/24/17 [History] Allopurinol [Zyloprim] 300 mg PO DAILY 08/30/19 [History] Ketoconazole 2% Shampoo [Nizoral] 1 applic TOPICAL Q7D 08/30/19 [History] Magnesium l-Lactate [Mag-Tab Sr] 84 mg PO DAILY 08/30/19 [History] Simvastatin [Zocor] 20 mg PO HS 08/30/19 [History] Follow up Appointment(s)/Referral(s): Dg Yadav MD [Primary Care Provider] - 3 Days Activity/Diet/Wound Care/Special Instructions: [place] Diet: Renal Activity: As tolerated CBC, BMP in 3 days Discharge Disposition: TRANSFER TO SNF/ECF
--- NOTE | 2019-09-07 10:28 | P.PN ---
Subjective Patient is seen in follow-up for acute kidney injury on chronic kidney disease. Patient has chronic kidney disease stage III with baseline creatinine in the range of 1.5-2 secondary to nephrosclerosis. Renal function is better today. Creatinine 1.79. No nausea or vomiting. Vital signs are stable. General: The patient appeared well nourished and normally developed. HEENT: Head exam is unremarkable. Neck is without jugular venous distension. LUNGS: Breath sounds decreased. HEART: Rate and Rhythm are regular. First and second heart sounds normal. No murmurs, rubs or gallops. ABDOMEN: Abdominal exam reveals normal bowel sounds. Non-tender and non- distended. No evidence of peritonitis. EXTREMITITES: No clubbing, cyanosis, or edema. Objective - Vital Signs Vital signs: Vital Signs Temp 98.4 F 09/07/19 07:27 Pulse 84 09/07/19 08:20 Resp 16 09/07/19 07:27 BP 120/72 09/07/19 07:27 Pulse Ox 91 L 09/07/19 08:10 Intake & Output 09/06/19 09/07/19 09/07/19 18:59 06:59 18:59 Intake Total 640 Output Total 1050 50 Balance -410 -50 Intake: Intake, IV Titration 100 Amount Piperacillin-Tazobactam 3 100 .375 gm In Sodium Chloride 0.9% 100 ml @ 25 mls/hr IVPB Q12HR [facility] Rx #:[id number] Oral 540 Output: Urine 1050 50 Other: Voiding Method Indwelling Catheter Urinal # Voids 1 - Labs CBC & Chem 7: 09/07/19 06:36 09/07/19 06:36 Labs: Abnormal Lab Results - Last 24 Hours (Table) 09/07/19 09/07/19 Range/Units 06:36 06:36 RBC 3.01 L (4.30-5.90) m/uL Hgb 9.0 L (13.0-17.5) gm/dL Hct 28.7 L (39.0-53.0) % Chloride 112 H (98-107) mmol/L BUN 58 H (9-20) mg/dL Creatinine 1.79 H (0.66-1.25) mg/dL Total Protein 4.9 L (6.3-8.2) g/dL Albumin 2.5 L (3.5-5.0) g/dL Assessment and Plan Plan: Assessment: 1. Acute kidney injury secondary to ATN secondary to hypotension. Renal func tion improving. Creatinine 1.79 today. Urinalysis benign. No hydronephrosis noted on CAT scan. 2. Chronic kidney disease stage III with baseline creatinine in the range of 1.5-2 secondary to nephrosclerosis. 3. Status post fall with multiple rib fractures. 4. History of CHF. Unknown ejection fraction. Patient does have an AICD. 5. Mild hyperkalemia secondary to acute kidney injury and metabolic acidosis. 6. Mild fluid overload. Improved. Plan: Remains off IV fluids. Add Lasix 20 mg orally once daily. Maintain oral sodium bicarbonate. Discontinued Cardura. Decreased Flomax to once daily. Continue to monitor renal function and urine output. Potentially going to rehab today. Repeat BMP 2-3 days postdischarge. Follow up outpatient in the next 2 weeks.
[2019-09-07 14:47] VITALS: BP 105/69; RESP 17; TEMP 97.9
[2019-09-07 16:04] VITALS: PULSE 81
[2019-09-08] MEDS ORDERED: FUROSEMIDE 20 MG TAB PO SCH (09:00)
== END 2019-09-07 16:31 | DRG 183 ==
LOC: EC 11:05 → 4SSUR 13:31
PROVIDERS: ADMIT Family Medicine; ATTEND Family Medicine
PROC: 00HU33Z Insertion of Infusion Device into Spinal Canal, Percutaneous Approach (ICD-10-PCS; principal; 2019-09-01 11:42)
PROC: 3E0R3NZ Introduction of Analgesics, Hypnotics, Sedatives into Spinal Canal, Percutaneous Approach (ICD-10-PCS; principal; 2019-09-01 11:42)
DX: S22.42XA Multiple fractures of ribs, left side, initial encounter for closed fracture (principal); I50.33 Acute on chronic diastolic (congestive) heart failure; J96.01 Acute respiratory failure with hypoxia; N17.0 Acute kidney failure with tubular necrosis; E87.2 Acidosis; I13.0 Hypertensive heart and chronic kidney disease with heart failure and stage 1 through stage 4 chronic kidney disease, or unspecified chronic kidney disease; J98.11 Atelectasis; S70.02XA Contusion of left hip, initial encounter; S01.01XA Laceration without foreign body of scalp, initial encounter; E03.9 Hypothyroidism, unspecified; E78.5 Hyperlipidemia, unspecified; E87.5 Hyperkalemia; H91.90 Unspecified hearing loss, unspecified ear; G47.33 Obstructive sleep apnea (adult) (pediatric); I25.5 Ischemic cardiomyopathy; J44.9 Chronic obstructive pulmonary disease, unspecified; I71.2 Thoracic aortic aneurysm, without rupture; I48.0 Paroxysmal atrial fibrillation; I25.10 Atherosclerotic heart disease of native coronary artery without angina pectoris; K21.9 Gastro-esophageal reflux disease without esophagitis; K57.30 Diverticulosis of large intestine without perforation or abscess without bleeding; K40.90 Unilateral inguinal hernia, without obstruction or gangrene, not specified as recurrent; M19.90 Unspecified osteoarthritis, unspecified site; N18.3 Chronic kidney disease, stage 3 (moderate); N40.0 Benign prostatic hyperplasia without lower urinary tract symptoms; W19.XXXA Unspecified fall, initial encounter; Y92.009 Unspecified place in unspecified non-institutional (private) residence as the place of occurrence of the external cause; I25.2 Old myocardial infarction; Z79.01 Long term (current) use of anticoagulants; Z79.899 Other long term (current) drug therapy; Z82.49 Family history of ischemic heart disease and other diseases of the circulatory system; Z82.5 Family history of asthma and other chronic lower respiratory diseases; Z83.3 Family history of diabetes mellitus; Z85.828 Personal history of other malignant neoplasm of skin; Z95.1 Presence of aortocoronary bypass graft; Z95.5 Presence of coronary angioplasty implant and graft; Z95.810 Presence of automatic (implantable) cardiac defibrillator; Z80.9 Family history of malignant neoplasm, unspecified; Z88.8 Allergy status to other drugs, medicaments and biological substances
CPT/HCPCS: 62325; 70450; 71045; 71250; 72125; 74176; 76604; 80048; 80053; 81003; 83605; 83735; 83880; 85025; 85610; 85730; 87070; 87205; 90715; 94640; 94660; 94667; 94760; 96374; 99285

== ENCOUNTER 2019-11-23 14:38 | Inpatient (IN) | payer MEDICARE, BC ==
[2019-11-23] MEDS ORDERED: KETOROLAC 30 MG/ML 1 ML VIAL IVP STA (15:01)
--- NOTE | 2019-11-23 15:04 | ED ---
General Adult HPI - General Chief complaint: Extremity Problem,Nontraumatic Stated complaint: Hand swelling Time Seen by Provider: 11/23/19 14:48 Source: patient Mode of arrival: wheelchair Limitations: no limitations - History of Present Illness Initial comments: Patient is a pleasant 89-year-old male presenting to the emergency Department with complaints of right wrist pain and swelling. Onset of symptoms was 3 days ago. Symptoms have progressively worsened since that time. Patient has noticed swelling. There is some mild discomfort that increases with movement. 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 No fevers. No upper arm pain or swelling. No history of problems with this joint previously. - Related Data Home Medications Medication Instructions Recorded Confirmed Loratadine [Claritin] 10 mg PO DAILY 03/28/14 08/30/19 Montelukast [Singulair] 10 mg PO DAILY 03/28/14 08/30/19 Rivaroxaban [Xarelto] 15 mg PO DAILY 12/26/14 08/30/19 Omeprazole [PriLOSEC] 20 mg PO DAILY 12/30/14 08/30/19 Cholecalciferol [Vitamin D3 (25 1,000 unit PO DAILY 07/24/17 08/30/19 Mcg = 1000 Iu)] Finasteride [Proscar] 5 mg PO DAILY 07/24/17 08/30/19 Metoprolol Succinate [Toprol XL] 25 mg PO DAILY 07/24/17 08/30/19 Allopurinol [Zyloprim] 300 mg PO DAILY 08/30/19 08/30/19 Ketoconazole 2% Shampoo [Nizoral] 1 applic TOPICAL Q7D 08/30/19 08/30/19 Magnesium l-Lactate [Mag-Tab Sr] 84 mg PO DAILY 08/30/19 08/30/19 Simvastatin [Zocor] 20 mg PO HS 08/30/19 08/30/19 Previous Rx's Medication Instructions Recorded Amoxic-Pot Clav 875-125Mg 1 tab PO Q12HR #10 tablet 09/07/19 [Augmentin 875-125] Furosemide [Lasix] 20 mg PO DAILY #1 tab 09/07/19 HYDROcodone/APAP 10-325MG [[place] 1 each PO Q4H PRN #18 tab 09/07/19 10-325] Ipratropium-Albuterol Nebulize 3 ml INHALATION Q4H PRN ampul.neb 09/07/19 [Duoneb 0.5 mg-3 mg/3 ml Soln] Ipratropium-Albuterol Nebulize 3 ml INHALATION RT-QID ampul.neb 09/07/19 [Duoneb 0.5 mg-3 mg/3 ml Soln] Sodium Bicarbonate Tab 650 mg PO BID tab 09/07/19 Tamsulosin [Flomax] 0.4 mg PO DAILY cap.er.24h 09/07/19 Allergies Allergy/AdvReac Type Severity Reaction Status Date / Time smoke Allergy Dyspnea Uncoded 11/23/19 14:43 Review of Systems ROS Statement: Those systems with pertinent positive or pertinent negative responses have been documented in the HPI. ROS Other: All systems not noted in ROS Statement are negative. Constitutional: Denies: fever, chills Eyes: Denies: eye pain ENT: Denies: ear pain Respiratory: Reports: cough. Denies: dyspnea Cardiovascular: Denies: chest pain Endocrine: Denies: fatigue Gastrointestinal: Denies: abdominal pain Genitourinary: Denies: dysuria Musculoskeletal: Reports: joint swelling, arthralgia. Denies: back pain Skin: Denies: lesions Past Medical History Past Medical History: Coronary Artery Disease (CAD), Cancer, COPD, GERD/Reflux, Hearing Disorder / Deafness, Hyperlipidemia, Osteoarthritis (OA), Pneumonia, Prostate Disorder, Renal Disease, Sleep Apnea/CPAP/BIPAP, Thyroid Disorder Additional Past Medical History / Comment(s): GOUT; not currently using CPAP, see Dr Sanchez H&P, edema left lower leg, bruises easily, hx skin cancer Last Myocardial Infarction Date:: 2001 History of Any Multi-Drug Resistant Organisms: None Reported Past Surgical History: AICD, Coronary Bypass/CABG, Heart Catheterization With Stent, Hernia Repair, Orthopedic Surgery, Pacemaker Additional Past Surgical History / Comment(s): 4 Vessel CABG 2002. 2 STENTS 2001. HAS 2 PINS IN RT ACHILLES. parathyroid surgery, AICD/PACEMAKER, [facility]. 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, recent biopsy left ear, maximus cataracts Past Anesthesia/Blood Transfusion Reactions: No Reported Reaction Date of Last Stent Placement:: UNK Type of Cardiac Device: Permanent Pacemaker, AICD Device Placement Date:: unknown Past Psychological History: No Psychological Hx Reported Smoking Status: Never smoker Past Alcohol Use History: None Reported Past Drug Use History: None Reported - Past Family History Father Family Medical History: Congestive Heart Failure (CHF), Diabetes Mellitus Additional Family Medical History / Comment(s): AT AGEG 66 FROM CHF Mother Family Medical History: COPD Additional Family Medical History / Comment(s): AT AGE FROM ANEURYSM Sister(s) Family Medical History: Cancer General Exam Limitations: no limitations General appearance: alert, in no apparent distress Head exam: Present: normocephalic Eye exam: Present: normal appearance Neck exam: Present: normal inspection Respiratory exam: Present: wheezes Cardiovascular Exam: Present: regular rate, normal rhythm Expanded Peripheral pulses: 2+: Radial (R) GI/Abdominal exam: Present: soft. Absent: tenderness Extremities exam: Present: other (Right wrist with mild light erythema that does extend several centimeters proximally. There is diffuse swelling. Pain with full range of motion of wrist. Distally the extremity is neurovascularly intact. Cap refill less than 2. Strength and sensation intact.) Neurological exam: Present: alert Psychiatric exam: Present: normal affect, normal mood Skin exam: Present: other (Mild erythema right wrist) Course Vital Signs 11/23/19 14:40 Temperature 97.9 F Pulse Rate 89 Respiratory 18 Rate Blood Pressure 132/68 O2 Sat by Pulse 97 Oximetry Medical Decision Making - Medical Decision Making Patient reevaluated and updated. There is concern for CHF and on arthralgia. Case was discussed in detail with Dr. Yadav who did come evaluate his patient and will admit. - Lab Data Result diagrams: 11/23/19 15:10 11/23/19 15:10 Lab Results 11/23/19 11/23/19 11/23/19 Range/Units 15:10 15:10 15:10 WBC 9.0 (3.8-10.6) k/uL RBC 4.10 L (4.30-5.90) m/uL Hgb 12.3 L (13.0-17.5) gm/dL Hct 38.5 L (39.0-53.0) % MCV 94.1 (80.0-100.0) fL MCH 29.9 (25.0-35.0) pg MCHC 31.8 (31.0-37.0) g/dL RDW 14.7 (11.5-15.5) % Plt Count 153 (150-450) k/uL Neutrophils % 77 % Lymphocytes % 16 % Monocytes % 5 % Eosinophils % 1 % Basophils % 0 % Neutrophils # 6.9 (1.3-7.7) k/uL Lymphocytes # 1.4 (1.0-4.8) k/uL Monocytes # 0.5 (0-1.0) k/uL Eosinophils # 0.1 (0-0.7) k/uL Basophils # 0.0 (0-0.2) k/uL Hypochromasia Slight Sodium 145 (137-145) mmol/L Potassium 4.0 (3.5-5.1) mmol/L Chloride 112 H (98-107) mmol/L Carbon Dioxide 20 L (22-30) mmol/L Anion Gap 13 mmol/L BUN 35 H (9-20) mg/dL Creatinine 1.53 H (0.66-1.25) mg/dL Est GFR (CKD-EPI)AfAm 47 (>60 ml/min/1.73 sqM) Est GFR (CKD-EPI)NonAf 40 (>60 ml/min/1.73 sqM) Glucose 104 H (74-99) mg/dL Uric Acid 5.5 (3.5-8.5) mg/dL Calcium 8.9 (8.4-10.2) mg/dL Total Bilirubin 1.4 H (0.2-1.3) mg/dL AST 30 (17-59) U/L ALT 13 (4-49) U/L Alkaline Phosphatase 80 (38-126) U/L C-Reactive Protein 154.0 H (<10.0) mg/L NT-Pro-B Natriuret Pep 8370 pg/mL Total Protein 6.9 (6.3-8.2) g/dL Albumin 3.8 (3.5-5.0) g/dL - Radiology Data Radiology results: image reviewed (Chest x-ray shows cardiac megaly. Possible mild interstitial edema. X-ray of the right wrist: Consider Crystal deposition, Osteoarthritis and hypercalcemia.) Disposition Clinical Impression: Arthralgia of right wrist, CHF (congestive heart failure) Disposition: ADMITTED IP TO THIS HOSP Is patient prescribed a controlled substance at d/c from ED?: No Referrals: Dg Yadav MD [Primary Care Provider] - 1-2 days Decision Time: 17:19
[2019-11-23] MEDS: SODIUM CHLORIDE 0.9% 1,000 ML IV STA ×2 (15:19→17:43)
[2019-11-23 15:27] LABS: Basophils % (A) 0 %; Eosinophils # (A) 0.1 k/uL (0-0.7); Eosinophils % (A) 1 %; HCT 38.5 % (39.0-53.0); HGB 12.3 gm/dL (13.0-17.5); Hypochromasia Slight; Lymphocytes # (A) 1.4 k/uL (1.0-4.8); Lymphocytes % (A) 16 %; MCH 29.9 pg (25.0-35.0); MCHC 31.8 g/dL (31.0-37.0); MCV 94.1 fL (80.0-100.0); Mean Platelet Volume 8.3; Monocytes # (A) 0.5 k/uL (0-1.0); Monocytes % (A) 5 %; Neutrophils # (A) 6.9 k/uL (1.3-7.7); Neutrophils % (A) 77 %; Platelet Count 153 k/uL (150-450); RDW 14.7 % (11.5-15.5)
[2019-11-23 15:53] LABS: Albumin 3.8 g/dL (3.5-5.0); Calcium 8.9 mg/dL (8.4-10.2); Total Bilirubin 1.4 mg/dL (0.2-1.3); Total Protein 6.9 g/dL (6.3-8.2); Uric Acid 5.5 mg/dL (3.5-8.5)
--- NOTE | 2019-11-23 16:21 | XR ---
EXAMINATION TYPE: XR chest 2V DATE OF EXAM: 11/23/2019 COMPARISON: Prior chest x-ray 09/02/2019, 11/10/2019 HISTORY: Cough and shortness of breath TECHNIQUE: Frontal and lateral views of the chest are obtained. FINDINGS: There is blunting the posterior costophrenic angles, increased AP diameter chest and relat veronika flattening the hemidiaphragms consistent with underlying COPD. Patient is post median sternotomy. Intracardiac defibrillator leads are noted, generator is in the left pectoral region. Aorta is dense . Arthropathy noted in the shoulders. Lung volumes are low. The cardiac silhouette size is enlarged and stable. Interstitium appears increased. The osseous structures are intact. IMPRESSION: Cardiomegaly, small pleural effusions are suspected, correlate for possible interstitial edema. Follow-up suggested.
--- NOTE | 2019-11-23 16:23 | XR ---
Right wrist HISTORY: Pain and swelling 4 views of the right wrist Bone mineralization is reduced. There is calcification along the triangle fibrocartilage. Arthropathy changes present at the metacarpal phalangeal and radiocarpal joints, there is marginal spurring, cho ndrocalcinosis. Hypertrophic change present at the carpometacarpal joint of the first digit. There is no evident fracture or dislocation. There is soft tissue swelling present. IMPRESSION: Consider crystal deposition arthropathy, osteoarthritis and hypercalcemic states.
[2019-11-23] MEDS ORDERED: ASPIRIN 325 MG TAB PO STA (17:20)
[2019-11-23] MEDS: NITROGLYCERIN OINT 1 INCH/GM PACKET TOPICAL SCH ×2 (19:03→21:39)
[2019-11-23] MEDS: FUROSEMIDE 10 MG/ML 4 ML VIAL IV SCH (19:03)
[2019-11-23 20:18] LABS: Magnesium 1.8 mg/dL (1.6-2.3); Potassium 4.2 mmol/L (3.5-5.1)
[2019-11-23] MEDS: SODIUM CHLORIDE 0.9% 1,000 ML IV SCH (21:39)
[2019-11-23] MEDS: ATORVASTATIN 10 MG TAB PO SCH (21:39)
[2019-11-24] MEDS: FUROSEMIDE 10 MG/ML 4 ML VIAL IV SCH ×3 (04:21→17:51)
[2019-11-24] MEDS ORDERED: ASPIRIN 325 MG TAB PO SCH (09:00)
[2019-11-24] MEDS ORDERED: METOPROLOL SUCCINATE (ER) 25 MG TAB.ER.24H PO SCH (09:00)
[2019-11-24] MEDS: PANTOPRAZOLE 40 MG TABLET PO SCH (09:20)
[2019-11-24] MEDS: ALLOPURINOL 300 MG TAB PO SCH (09:20)
[2019-11-24] MEDS: MONTELUKAST 10 MG TAB PO SCH (09:20)
[2019-11-24] MEDS: NITROGLYCERIN OINT 1 INCH/GM PACKET TOPICAL SCH ×4 (09:20→20:13)
[2019-11-24] MEDS: LORATADINE 10 MG TAB PO SCH (09:20)
[2019-11-24] MEDS: RIVAROXABAN 15 MG TAB PO SCH (09:20)
[2019-11-24] MEDS: TAMSULOSIN 0.4 MG CAP.ER.24H PO SCH (09:20)
[2019-11-24] MEDS ORDERED: AMIODARONE 360 MG in DEXTROSE 5% IN WATER 200 ML IV ONE ×2 (09:32)
[2019-11-24] MEDS ORDERED: DEXTROSE 5% IN WATER 100 ML with AMIODARONE 150 MG IV ONE (09:32)
[2019-11-24] MEDS ORDERED: METOPROLOL SUCCINATE (ER) 25 MG TAB.ER.24H PO ONE (09:45)
--- NOTE | 2019-11-24 10:18 | CONS ---
CONSULTATION Mr. Tolentino is an 89-year-old gentleman who is seen for cardiac evaluation. Patient's electronic medical records reviewed. This patient is known to have an ischemic cardiomyopathy with a history of prior myocardial infarction, chronic systolic heart failure, as well as AICD placement. Patient came to the emergency room with a complaint of right wrist pain and swelling. Patient had these symptoms for last 3 days and symptoms has progressively got worse. Patient is stable cardiac mcfadden. He denies any orthopnea, PND, or any swelling with his routine activities. He is physically and functionally remains independent. Patient has an underlying AICD and chronic atrial fibrillation. Patient had been taking Xarelto 15 mg daily. He was not taking any aspirin at home. PAST MEDICAL HISTORY: Includes history of COPD, history of ischemic cardiomyopathy, prior history of coronary artery bypass surgery and AICD placement. Patient's medications, please see the chart. PHYSICAL EXAMINATION: At present reveals 89-year-old gentleman who does not appear to be in any acute distress, is lying comfortably in the bed. Blood pressure is 115/69 mmHg, heart rate is 63 per minute. HEENT examination is negative. Neck is supple. There is no increase in jugular venous pressure. Both the carotid pulses are felt. There is no bruit. Chest is symmetrical. Heart, the PMI is not felt. First and second heart sounds are normal. There is no evidence of any murmur. Lungs are clinically clear to auscultation and percussion. Abdomen is soft. Liver and spleen are not enlarged. Extremities, there is no evidence of any significant leg edema. Patient's C-reactive protein is 154. ProBNP level is 8340. Patient's monitor strips reviewed. Patient had two runs of nonsustained ventricular tachycardia which were at a rate of in the range of 200 per minute, patient was asymptomatic. The patient denies any history of recent shock. Patient's proBNP level is not significantly changed from before. Chest x-ray does not show any overt left ventricular failure. FINAL IMPRESSION: 1. This patient is primarily admitted with right wrist swelling and pain. Patient has some inflammatory arthritis, rule out possible gout. Patient's uric acid level is 5.5, however, C-reactive protein is elevated. 2. Ischemic cardiomyopathy but chronic systolic heart failure type class 3. Patient is currently euvolemic. We will recommend to continue the current medications. 3. Patient had two episodes of non runs of faster nonsustained ventricular tachycardia. In view of that, I will restart the patient on amiodarone drip and patient can be discharged home tomorrow on oral amiodarone. I will also increase the dose of Toprol to 50 mg daily. MARCO A / SEN: [id number] /
--- NOTE | 2019-11-24 14:00 | P.CNOR ---
<Fady Hackett - Last Filed: 11/24/19 13:48> History of Present Illness - [facility] Consult date: 11/24/19 Consult reason: joint pain History of present illness: Patient is a pleasant 89 year old male seen at bedside this morning in consultation for right wrist pain. he states he devloped right wrist pain about a week ago without injury. he states that he has a history of gout and has taken medicine for his gout in the past. He denies fever or chills. He denies numbness or tingling. He has pain with range of motion of the wrist. He has no other complaints. Review of Systems All systems: negative Constitutional: Denies chills, Denies fever Eyes: denies blurred vision, denies pain Ears, nose, mouth and throat: Denies headache, Denies sore throat Cardiovascular: Denies chest pain, Denies shortness of breath Respiratory: Denies cough Gastrointestinal: Denies abdominal pain, Denies diarrhea, Denies nausea, Denies vomiting Musculoskeletal: Denies myalgias Integumentary: Denies pruritus, Denies rash Neurological: Denies numbness, Denies weakness Psychiatric: Denies anxiety, Denies depression Endocrine: Denies fatigue, Denies weight change Past Medical History Past Medical History: Coronary Artery Disease (CAD), Cancer, COPD, GERD/Reflux, Hearing Disorder / Deafness, Hyperlipidemia, Osteoarthritis (OA), Pneumonia, Prostate Disorder, Renal Disease, Sleep Apnea/CPAP/BIPAP, Thyroid Disorder Additional Past Medical History / Comment(s): GOUT; not currently using CPAP, see Dr Sanchez H&P, edema left lower leg, bruises easily, hx skin cancer Last Myocardial Infarction Date:: 2001 History of Any Multi-Drug Resistant Organisms: None Reported Past Surgical History: AICD, Coronary Bypass/CABG, Heart Catheterization With Stent, Hernia Repair, Orthopedic Surgery, Pacemaker Additional Past Surgical History / Comment(s): 4 Vessel CABG 2002. 2 STENTS 26 10. HAS 2 PINS IN RT ACHILLES. parathyroid surgery, AICD/PACEMAKER, [facility]. 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, recent biopsy left ear, maximus cataracts Past Anesthesia/Blood Transfusion Reactions: No Reported Reaction Date of Last Stent Placement:: UNK Type of Cardiac Device: Permanent Pacemaker, AICD Device Placement Date:: unknown Past Psychological History: No Psychological Hx Reported Smoking Status: Never smoker Past Alcohol Use History: None Reported Past Drug Use History: None Reported - Past Family History Father Family Medical History: Congestive Heart Failure (CHF), Diabetes Mellitus Additional Family Medical History / Comment(s): AT AGEG 66 FROM CHF Mother Family Medical History: COPD Additional Family Medical History / Comment(s): AT AGE FROM ANEURYSM Sister(s) Family Medical History: Cancer Medications and Allergies Home Medications Medication Instructions Recorded Confirmed Type Loratadine [Claritin] 10 mg PO DAILY 03/28/14 11/23/19 History Montelukast [Singulair] 10 mg PO DAILY 03/28/14 11/23/19 History Rivaroxaban [Xarelto] 15 mg PO DAILY 12/26/14 11/23/19 History Omeprazole [PriLOSEC] 20 mg PO DAILY 12/30/14 11/23/19 History Cholecalciferol [Vitamin D3 (25 1,000 unit PO DAILY@1700 07/24/17 11/23/19 History Mcg = 1000 Iu)] Finasteride [Proscar] 5 mg PO DAILY 07/24/17 11/23/19 History Metoprolol Succinate [Toprol XL] 25 mg PO DAILY 07/24/17 11/23/19 History Allopurinol [Zyloprim] 300 mg PO DAILY 08/30/19 11/23/19 History Magnesium l-Lactate [Mag-Tab Sr] 84 mg PO DAILY@1700 08/30/19 11/23/19 History Simvastatin [Zocor] 20 mg PO HS 08/30/19 11/23/19 History Tamsulosin [Flomax] 0.4 mg PO DAILY cap.er.24h 09/07/19 11/23/19 Rx Olopatadine HCl [Patanol] 1 drop BOTH EYES DAILY PRN 11/23/19 11/23/19 History Allergies Allergy/AdvReac Type Severity Reaction Status Date / Time smoke Allergy Dyspnea Uncoded 11/23/19 19:32 Physical Examination Inspection shows mild to moderate edema/swelling at the right wrist and hand. There is no deformity. There is tenderness at the radial carpal joint. The wrist and hand are warm to touch. He is able to flex and extend the wrist and all digits which produces some wrist pain. Motor and sensation is intact throughout the right upper extremity. 2+ radial pulse and less than 2 sec capillary refill present in all digits. Results X-rays of the right wrist and hand show diffuse degenerative changes along with chondrocalcinosis. No evidence of fracture/dislocation, gas or lesions - Labs Labs: Abnormal Lab Results - Last 24 Hours (Table) 11/23/19 11/23/19 11/23/19 Range/Units 15:10 15:10 19:08 RBC 4.10 L (4.30-5.90) m/uL Hgb 12.3 L (13.0-17.5) gm/dL Hct 38.5 L (39.0-53.0) % ESR 47 H (0-15) mm/hr Chloride 112 H (98-107) mmol/L Carbon Dioxide 20 L (22-30) mmol/L BUN 35 H (9-20) mg/dL Creatinine 1.53 H (0.66-1.25) mg/dL Glucose 104 H (74-99) mg/dL Total Bilirubin 1.4 H (0.2-1.3) mg/dL C-Reactive Protein 154.0 H (<10.0) mg/L H & H 11/23/19 Range/Units 15:10 Hgb 12.3 L (13.0-17.5) gm/dL Hct 38.5 L (39.0-53.0) % Result Diagrams: 11/23/19 15:10 11/23/19 19:08 - Diagnostic results Wrist/Hand x-ray: report reviewed, image reviewed Assessment and Plan (1) Arthralgia of right wrist Narrative/Plan: Patient has a history of gout and likely has an acute flare up at the right wrist. Is currently on allopurinol. Recommend trial of coricosteroids (medrol pack) if ok with primary team. Also have instructed patient and nurse to elevate the right upper extremity and apply ice to wrist 15 minutes, 3 times per day. Will continue to monitor and further recommendations as appropriate. Current Visit: Yes Status: Acute Priority: Medium Code(s): M25.531 - PAIN IN RIGHT WRIST SNOMED Code(s): 597756721 Time with Patient: Less than 30 <Jeff Vidal - Last Filed: 11/25/19 17:15> Results - Labs Labs: Abnormal Lab Results - Last 24 Hours (Table) 11/24/19 11/24/1911/24/20 Range/Units 16:16 16:16 05:58 ESR 42 H (0-15) mm/hr Creatinine 1.82 H (0.66-1.25) mg/dL C-Reactive Protein 85.6 H (<10.0) mg/L Microbiology - Last 24 Hours (Table) 11/23/19 15:20 Blood Culture Gram Stain - Final Blood Blood Culture - Final Micrococcus species 11/23/19 15:10 Blood Culture - Final Blood H & H 11/23/19 Range/Units 15:10 Hgb 12.3 L (13.0-17.5) gm/dL Hct 38.5 L (39.0-53.0) % Result Diagrams: 11/23/19 15:10 11/25/19 05:58 Assessment and Plan Plan: Reviewed and agree with above (amendments/corrections noted below). The patient was subsequently seen and examined by me as well. S: The patient has had gouty attacks in the past, but says they are usually in the foot. He states that the symptoms have gradually improved since admission and are now quite tolerable O: Upon entering, the patient was sitting at the edge of the bed eating (using both hands, without evidence of pain or difficulty). No erythema or ecchymosis. Mild to moderate edema over the dorsum of the hand and wrist. Minimal tenderness to palpation. No subcutaneous crepitus. No pain with mid range active or passive wrist or digital motion. He is able to make a loose, full fist without [id number] deficit. 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 We reviewed the pathophysiology of gouty tendinopathy. The pain and function have been steadily improving. I recommended continuing supportive treatment with anti-inflammatories (steroids or NSAIDs) and PRN pain management. Continue activity as tolerated. Encouraged frequent active and passive wrist and digital motion. We will continue to monitor his progress and clinical course while inpatient. Thank you for allowing us to participate in the care of this patient. Jeff Vidal D.O. [facility]
[2019-11-24 14:05] VITALS: BMI 26.7
[2019-11-24] MEDS ORDERED: VANCOMYCIN IV PER PHARMACY 1 EACH MISC MISCELLANE SCH (15:30)
[2019-11-24] MEDS: methylPREDNISolone 4 MG TAB TAPER PO SCH (16:57)
[2019-11-24] MEDS: LACTATE PO SCH (17:48)
[2019-11-24] MEDS: MAGNESIUM PO SCH (17:48)
[2019-11-24] MEDS: VANCOMYCIN 1,500 MG in SODIUM CHLORIDE 0.9% 250 ML IVPB SCH (17:50)
[2019-11-24] MEDS: AMIODARONE 300 MG in DEXTROSE 5% IN WATER 250 ML IV SCH ×2 (17:51)
[2019-11-24] MEDS: CHOLECALCIFEROL 1,000 UNIT TAB PO SCH (17:51)
[2019-11-24] MEDS: SODIUM CHLORIDE 0.9% 1,000 ML IV SCH (20:13)
[2019-11-24] MEDS: ATORVASTATIN 10 MG TAB PO SCH (20:13)
--- NOTE | 2019-11-24 22:21 | P.CONS ---
History of Present Illness - Reason for Consult Consult date: 11/24/19 Gram positive bacteremia Requesting physician: Milla Doss - Chief Complaint right wrist pain and swelling x 3 days - History of Present Illness Patient is 89-year-old male presenting to the ER yesterday afternoon with chief complaint of right wrist pain and swelling apparently started about 3 days prior to presentation to hospital daily has become progressively worse started at the wrist seem to have spread to the dorsum of his left hand patient denies having history of trauma he has swelling and discomfort more of a dull aching pain to the out of 10 and radiation apparently did have history of gout and previously did have some similar symptom with the symptom the patient was evaluated by the ER physician on arrival to the ER patient has been afebrile patient did have a normal white count CRP was elevated 154 uric acid was 5.5 patient did have x-rays of the wrist which suggest 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 Review of Systems Positive point has been mentioned in HPI rest of the systems are negative Past Medical History Past Medical History: Coronary Artery Disease (CAD), Cancer, COPD, GERD/Reflux, Hearing Disorder / Deafness, Hyperlipidemia, Osteoarthritis (OA), Pneumonia, Prostate Disorder, Renal Disease, Sleep Apnea/CPAP/BIPAP, Thyroid Disorder Additional Past Medical History / Comment(s): GOUT; not currently using CPAP, see Dr Sanchez H&P, edema left lower leg, bruises easily, hx skin cancer Last Myocardial Infarction Date:: 2001 History of Any Multi-Drug Resistant Organisms: None Reported Past Surgical History: AICD, Coronary Bypass/CABG, Heart Catheterization With Stent, Hernia Repair, Orthopedic Surgery, Pacemaker Additional Past Surgical History / Comment(s): 4 Vessel CABG 2002. 2 STENTS 2001. HAS 2 PINS IN RT ACHILLES. parathyroid surgery, AICD/PACEMAKER, [facility]. 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, recent biopsy left ear, maximus cataracts Past Anesthesia/Blood Transfusion Reactions: No Reported Reaction Date of Last Stent Placement:: UNK Type of Cardiac Device: Permanent Pacemaker, AICD Device Placement Date:: unknown Past Psychological History: No Psychological Hx Reported Smoking Status: Never smoker Past Alcohol Use History: None Reported Past Drug Use History: None Reported - Past Family History Father Family Medical History: Congestive Heart Failure (CHF), Diabetes Mellitus Additional Family Medical History / Comment(s): AT AGEG 66 FROM CHF Mother Family Medical History: COPD Additional Family Medical History / Comment(s): AT AGE FROM ANEURYSM Sister(s) Family Medical History: Cancer Medications and Allergies Home Medications Medication Instructions Recorded Confirmed Type Loratadine [Claritin] 10 mg PO DAILY 03/28/14 11/23/19 History Montelukast [Singulair] 10 mg PO DAILY 03/28/14 11/23/19 History Rivaroxaban [Xarelto] 15 mg PO DAILY 12/26/14 11/23/19 History Omeprazole [PriLOSEC] 20 mg PO DAILY 12/30/14 11/23/19 History Cholecalciferol [Vitamin D3 (25 1,000 unit PO DAILY@1700 07/24/17 11/23/19 History Mcg = 1000 Iu)] Finasteride [Proscar] 5 mg PO DAILY 07/24/17 11/23/19 History Metoprolol Succinate [Toprol XL] 25 mg PO DAILY 07/24/17 11/23/19 History Allopurinol [Zyloprim] 300 mg PO DAILY 08/30/19 11/23/19 History Magnesium l-Lactate [Mag-Tab Sr] 84 mg PO DAILY@1700 08/30/19 11/23/19 History Simvastatin [Zocor] 20 mg PO HS 08/30/19 11/23/19 History Tamsulosin [Flomax] 0.4 mg PO DAILY cap.er.24h 09/07/19 11/23/19 Rx Olopatadine HCl [Patanol] 1 drop BOTH EYES DAILY PRN 11/23/19 11/23/19 History Allergies Allergy/AdvReac Type Severity Reaction Status Date / Time smoke Allergy Dyspnea Uncoded 11/23/19 19:32 Physical Exam Vitals: Vital Signs Temp Pulse Pulse Resp BP BP Pulse Ox 11/24/19 12:30 78 18 123/85 11/24/19 12:15 80 18 113/75 11/24/19 12:00 78 18 95/52 11/24/19 11:45 60 18 104/57 11/24/19 11:30 61 18 106/58 11/24/19 11:15 62 116/59 11/24/19 08:00 97.5 F L 67 20 107/55 94 L 11/24/19 04:00 98.2 F 63 16 115/69 92 L 11/23/19 23:39 97.8 F 72 16 104/66 94 L 11/23/19 20:00 97.7 F 66 16 109/62 94 L 11/23/19 17:51 98.1 F 83 20 122/67 94 L 11/23/19 17:38 70 18 121/73 95 Intake and Output 11/24/19 11/24/19 11/24/19 06:59 14:59 22:59 Intake Total 240 Output Total 500 Balance -500 240 Intake: Oral 240 Output: Urine 500 Other: Voiding Method Urinal Urinal # Voids 1 2 # Bowel Movements 1 Weight 75.1 kg 75.1 kg GENERAL DESCRIPTION: Elderly male lying in bed, no distress. No tachypnea or accessory muscle of respiration use. HEENT: Shows Pallor , no scleral icterus. Oral mucous membrane is dry. NECK: Trachea central, no thyromegaly. LUNGS: Unlabored breathing. Clear to auscultation anteriorly. No wheeze or crackle. HEART: S1, S2, regular rate and rhythm. ABDOMEN: Soft, no tenderness , guarding or rigidity EXTREMITIES: Right hand dorsum with swelling mostly marked at the wrist area slightly warm to touch no open wound or any drainage. SKIN: No rash, no masses palpable. NEUROLOGICAL: The patient is awake, alert, oriented x3, mood and affect normal. Results CBC & Chem 7: 11/23/19 15:10 11/23/19 19:08 Labs: Abnormal Lab Results - Last 24 Hours (Table) 11/23/19 11/23/19 Range/Units 15:10 19:08 ESR 47 H (0-15) mm/hr Chloride 112 H (98-107) mmol/L Carbon Dioxide 20 L (22-30) mmol/L BUN 35 H (9-20) mg/dL Creatinine 1.53 H (0.66-1.25) mg/dL Glucose 104 H (74-99) mg/dL Total Bilirubin 1.4 H (0.2-1.3) mg/dL C-Reactive Protein 154.0 H (<10.0) mg/L Microbiology - Last 24 Hours (Table) 11/23/19 15:20 Blood Culture Gram Stain - Preliminary Blood 11/23/19 15:10 Blood Culture - Final Blood Assessment and Plan Assessment: patient with gram-positive bacteremia in this patient presented hospital with right hand dorsum swelling and pain in this patient with no fever or elevated white count however did have elevated CRP that apparently proved without any antibiotic initially with concern for possible skin contamination however underlying cellulitis versus septic arthritis of the right wrist not entirely excluded though less likely. (1) Gram-positive bacteremia Current Visit: Yes Status: Acute Code(s): R78.81 - BACTEREMIA SNOMED Code(s): 019377511150 Plan: 1-blood cultures repeated before the first dose of antibiotic to rule out contamination of the initial blood cultures 2-vancomycin pharmacy to dose her with a target trough of 15 while watching her kidney function and Vanco trough closely. We will follow on clinical condition and cultures to further adjust medication if needed Thank you for this consultation we will follow the patient along with you Time with Patient: Greater than 30
[2019-11-25] MEDS: AMIODARONE 300 MG in DEXTROSE 5% IN WATER 250 ML IV SCH ×2 (01:03)
[2019-11-25] MEDS: FUROSEMIDE 10 MG/ML 4 ML VIAL IV SCH (01:04)
[2019-11-25] MEDS: methylPREDNISolone 4 MG TAB TAPER PO SCH (09:30)
[2019-11-25] MEDS: TAMSULOSIN 0.4 MG CAP.ER.24H PO SCH (09:30)
[2019-11-25] MEDS: RIVAROXABAN 15 MG TAB PO SCH (09:30)
[2019-11-25] MEDS: PANTOPRAZOLE 40 MG TABLET PO SCH (09:30)
[2019-11-25] MEDS: METOPROLOL SUCCINATE (ER) 50 MG TAB.ER.24H PO SCH (09:30)
[2019-11-25] MEDS: ALLOPURINOL 300 MG TAB PO SCH (09:30)
[2019-11-25] MEDS: LORATADINE 10 MG TAB PO SCH (09:30)
[2019-11-25] MEDS: MONTELUKAST 10 MG TAB PO SCH (09:30)
[2019-11-25] MEDS: NITROGLYCERIN OINT 1 INCH/GM PACKET TOPICAL SCH (10:56)
--- NOTE | 2019-11-25 11:05 | PN ---
PROGRESS NOTE This patient was admitted with acute inflammatory arthritis in the right wrist. One blood culture has been positive for Staph aureus. The patient is afebrile. It is unclear whether this is most likely contaminant. His breathing is improved. Blood pressure is 112/64 mmHg. First and second heart sounds are normal. Lungs are clear to auscultation and percussion. No more episodes of nonsustained ventricular tachycardia are noted. PLAN: We will switch the patient to oral amiodarone and oral Lasix and whenever it is okay with Dr. Yadav, patient can be discharged home. MMODL / IJN: [id number] /
--- NOTE | 2019-11-25 11:08 | P.PN ---
Subjective Progress Note Date: 11/25/19 Principal diagnosis: Right wrist pain, presumed acute gout Patient is pleasant 89-year-old male seen at bedside this morning. We are following him for right wrist pain and presumed acute gout attack. He was started on corticosteroids yesterday. He states his wrist pain and swelling is improved today. He denies any new complaints including numbness, tingling, fever, chills or other. Objective - Vital Signs Vital signs: Vital Signs Temp 97.6 F 11/25/19 08:00 Pulse 58 L 11/25/19 08:00 Resp 16 11/25/19 08:00 BP 112/64 11/25/19 08:00 Pulse Ox 94 L 11/25/19 08:00 Intake & Output 11/24/19 11/25/19 11/25/19 18:59 06:59 18:59 Intake Total 480 180 100 Output Total 1050 300 Balance 480 -870 -200 Weight 75.1 kg 74.7 kg Intake: Intake, IV Titration 180 Amount Amiodarone 300 mg In 180 Dextrose 5% in Water 250 ml @ 0.5 MG/MIN 25 mls/hr IV .Q10H [facility] Rx#: [id number] Oral 480 100 Output: Urine 1050 300 Other: Voiding Method Urinal Urinal # Voids 1 1 # Bowel Movements 1 1 1 - Exam Inspection of the right wrist shows improving swelling at the right wrist and hand. There is no erythema. There are no wounds. He has increased active range of motion with decreased pain at the wrist, hand and fingers. Neurovascular status intact with motor and sensation throughout the right upper extremity. 2+ radial pulse is present and less than 2 second capillary refill is present in all digits. - Constitutional General appearance: Present: no acute distress - Labs CBC & Chem 7: 11/23/19 15:10 11/25/19 05:58 Labs: Abnormal Lab Results - Last 24 Hours (Table) 11/24/19 11/24/19 11/25/19 Range/Units 16:16 16:16 05:58 ESR 42 H (0-15) mm/hr Creatinine 1.82 H (0.66-1.25) mg/dL C-Reactive Protein 85.6 H (<10.0) mg/L Microbiology - Last 24 Hours (Table) 11/23/19 15:20 Blood Culture Gram Stain - Final Blood Blood Culture - Final Micrococcus species 11/23/19 15:10 Blood Culture - Final Blood Assessment and Plan (1) Arthralgia of right wrist Narrative/Plan: Patient has a history of gout and likely has an acute flare up at the right wrist which has improved over the past 24 hours with corticosteroids, elevation and icing. Recommend continue coricosteroids (medrol pack) if ok with primary team along with his gout medication.. Also continue to elevate the right upper extremity and apply ice to wrist 15 minutes, 3 times per day. Will continue to monitor and further recommendations as appropriate. Current Visit: Yes Status: Acute Priority: Medium Code(s): M25.531 - PAIN IN RIGHT WRIST SNOMED Code(s): 377764193 Time with Patient: Less than 30
[2019-11-25] MEDS: CHOLECALCIFEROL 1,000 UNIT TAB PO SCH (16:32)
[2019-11-25] MEDS: VANCOMYCIN 1,500 MG in SODIUM CHLORIDE 0.9% 250 ML IVPB SCH (16:32)
[2019-11-25] MEDS ORDERED: AZITHROMYCIN 500 MG TAB PO STA (17:26)
[2019-11-25] MEDS: LACTATE PO SCH (18:13)
[2019-11-25] MEDS: MAGNESIUM PO SCH (18:13)
--- NOTE | 2019-11-25 18:24 | XR ---
EXAMINATION TYPE: XR chest 2V DATE OF EXAM: 11/25/2019 COMPARISON: 11/23/2019 HISTORY: Cough. Pneumonia. TECHNIQUE: FINDINGS: There is slight blunting of the costophrenic angles. Heart is top normal in size. There is a left axillary pacemaker. There is no gross heart failure. There are sternal wires. IMPRESSION: There are small pleural effusions unchanged compared to last exam. No obvious heart failu re. No pulmonary consolidation.
--- NOTE | 2019-11-25 18:51 | PN ---
PROGRESS NOTE DATE OF SERVICE: 11/25/2019 REASON FOR FOLLOW UP: 1. Positive blood test. 2. The patient complaining of cough and question of pneumonitis, bronchitis. INTERVAL HISTORY: The patient is currently afebrile. Patient has been feeling better. The patient right hand dorsum swelling and redness and pain has improved. Denies any chest pain or shortness of breath. He did have some cough with green sputum. Some blood tinged. No nausea, no vomiting. No abdominal pain. No diarrhea. PHYSICAL EXAMINATION: Blood pressure 118/60 with a pulse of 58, temperature 97.6. He is 95% on room air. General description is an elderly male lying in bed in no distress. Respiratory system: Unlabored breathing with decreased breath sounds in the bases. No wheeze. Heart S1, S2. Regular rate and rhythm. Abdomen soft, no tenderness. Right hand swelling and redness has improved. LAB: Creatinine is 1.82. Blood culture with micrococcus species. The patient's blood culture repeat has been negative so far. DIAGNOSTIC IMPRESSION AND PLAN: 1. Patient with a positive blood culture with micrococcus species. Likely representing skin contamination as the patient no clinical symptoms to go along with. Followup blood culture has been negative. Those were done before vanco was added. Vancomycin will be discontinued. 2. Patient with right wrist pain, possibly arthritis and responded to steroids. 3. Patient with cough and sputum. We will check a repeat chest x-ray and empirically add Rocephin and Zithromax and monitor clinical course closely. MMODL / IJN: [id number] /
[2019-11-25] MEDS: ATORVASTATIN 10 MG TAB PO SCH (19:49)
[2019-11-25] MEDS: AMIODARONE 200 MG TAB PO SCH (19:49)
[2019-11-25] MEDS: SODIUM CHLORIDE 0.9% 1,000 ML IV SCH (19:51)
--- NOTE | 2019-11-25 22:41 | PN ---
PROGRESS NOTE 89-year-old white male with CHF, COPD, admitted to the hospital. He has been placed on amiodarone. Admit. Medications for atrial fibrillation, rapid ventricular response and switched to oral medicines today. He has been treated with gout and cellulitis of his right hand for which he had a positive blood culture, so vancomycin is being given for bacteremia. Cardiovascular S1, S2. Irregular rate and rhythm. Lungs clear. GI soft. Hematology negative Homans. PSYCH: Fair mood and affect. ASSESSMENT: 1. Chronic obstructive pulmonary disease exacerbation. 2. Atrial fibrillation. 3. Rapid ventricular response. 4. Insulin-dependent diabetes mellitus. 5. Hypertension. Continue current treatment. Follow up in the next 24 to 48 hours. Rehydrate. Continue with vancomycin for bacteremia. Once repeat blood cultures are negative, patient could be safely discharged. MMODL / IJN: [id number] /
[2019-11-26 06:27] LABS: Basophils % (A) 0 %; Eosinophils % (A) 0 %; HCT 34.8 % (39.0-53.0); Lymphocytes % (A) 6 %; MCH 29.8 pg (25.0-35.0); MCHC 31.7 g/dL (31.0-37.0); Mean Platelet Volume 8.7; Monocytes # (A) 0.6 k/uL (0-1.0); Monocytes % (A) 4 %; Neutrophils # (A) 14.1 k/uL (1.3-7.7); Neutrophils % (A) 89 %; Platelet Count 150 k/uL (150-450); RDW 14.6 % (11.5-15.5); WBC 15.9 k/uL (3.8-10.6)
[2019-11-26 06:44] LABS: Albumin 2.9 g/dL (3.5-5.0); Calcium 8.2 mg/dL (8.4-10.2); Potassium 4.3 mmol/L (3.5-5.1); Total Bilirubin 0.2 mg/dL (0.2-1.3); Total Protein 5.5 g/dL (6.3-8.2)
[2019-11-26] MEDS: PANTOPRAZOLE 40 MG TABLET PO SCH (09:10)
[2019-11-26] MEDS: FUROSEMIDE 40 MG TAB PO SCH (09:10)
[2019-11-26] MEDS: TAMSULOSIN 0.4 MG CAP.ER.24H PO SCH (09:10)
[2019-11-26] MEDS: METOPROLOL SUCCINATE (ER) 50 MG TAB.ER.24H PO SCH (09:10)
[2019-11-26] MEDS: methylPREDNISolone 4 MG TAB TAPER PO SCH (09:11)
[2019-11-26] MEDS: LORATADINE 10 MG TAB PO SCH (09:11)
[2019-11-26] MEDS: MONTELUKAST 10 MG TAB PO SCH (09:11)
[2019-11-26] MEDS: ALLOPURINOL 300 MG TAB PO SCH (09:11)
[2019-11-26] MEDS: AMIODARONE 200 MG TAB PO SCH ×2 (09:11→19:37)
[2019-11-26] MEDS: RIVAROXABAN 15 MG TAB PO SCH (09:11)
--- NOTE | 2019-11-26 10:24 | P.PN ---
Subjective Progress Note Date: 11/26/19 Principal diagnosis: Right wrist pain, presumed acute gout Patient is pleasant 89-year-old male seen at bedside this morning. We are following him for right wrist pain and presumed acute gout attack. He was started on corticosteroids two days ago. He states his wrist pain and swelling continues to improve. He denies any new complaints including numbness, tingling, fever, chills or other. Objective - Vital Signs Vital signs: Vital Signs Temp 97.7 F 11/26/19 09:00 Pulse 55 L 11/26/19 09:00 Resp 20 11/26/19 09:00 BP 114/60 11/26/19 09:00 Pulse Ox 94 L 11/26/19 09:00 Intake & Output 11/25/19 11/26/19 11/26/19 18:59 06:59 18:59 Intake Total 430 230 Output Total 700 750 Balance -270 -750 230 Weight 75.8 kg Intake: Oral 430 230 Output: Urine 700 750 Other: Voiding Method Urinal Urinal # Voids 200 # Bowel Movements 1 - Exam Inspection of the right wrist shows improving swelling. There is no erythema. There are no wounds. He has continues to have increased active range of motion with decreased pain at the wrist, hand and fingers. Neurovascular status intact with motor and sensation throughout the right upper extremity. 2+ radial pulse is present and less than 2 second capillary refill is present in all digits. - Constitutional General appearance: Present: no acute distress - Labs CBC & Chem 7: 11/26/19 05:48 11/26/19 05:48 Labs: Abnormal Lab Results - Last 24 Hours (Table) 11/26/19 11/26/19 Range/Units 05:48 05:48 WBC 15.9 H (3.8-10.6) k/uL RBC 3.70 L (4.30-5.90) m/uL Hgb 11.0 L (13.0-17.5) gm/dL Hct 34.8 L (39.0-53.0) % Neutrophils # 14.1 H (1.3-7.7) k/uL Chloride 108 H (98-107) mmol/L BUN 62 H (9-20) mg/dL Creatinine 1.96 H (0.66-1.25) mg/dL Glucose 160 H (74-99) mg/dL Calcium 8.2 L (8.4-10.2) mg/dL AST 61 H (17-59) U/L Total Protein 5.5 L (6.3-8.2) g/dL Albumin 2.9 L (3.5-5.0) g/dL Microbiology - Last 24 Hours (Table) 11/25/19 20:20 Gram Stain - Preliminary Sputum Sputum Culture - Preliminary 11/24/19 16:16 Blood Culture - Preliminary Blood No Growth after 24 hours 11/23/19 15:20 Blood Culture Gram Stain - Final Blood Blood Culture - Final Micrococcus species Assessment and Plan (1) Arthralgia of right wrist Narrative/Plan: Patient has a history of gout and likely has an acute flare up at the right wrist which has improved over the past 48 hours with corticosteroids, elevation and ice. Recommend continue coricosteroids (medrol pack) if ok with primary team along with his gout medication.. Also continue to elevate the right upper extremity and apply ice to wrist 15 minutes, 3 times per day. We will sign off for now and he may f/u as an outpatient if needed. Thank you Current Visit: Yes Status: Acute Priority: Medium Code(s): M25.531 - PAIN IN RIGHT WRIST SNOMED Code(s): 433538971 Time with Patient: Less than 30
--- NOTE | 2019-11-26 11:29 | PN ---
PROGRESS NOTE This patient was admitted with arthritis in the right wrist. Blood cultures are suggestive of micrococcus. Second blood culture is negative. Most likely it is a contaminant. Cardiac mcfadden, patient remains stable. The patient can be discharged home from cardiac point of view. MMODL / IJN: [id number] /
[2019-11-26] MEDS: AZITHROMYCIN 500 MG in SODIUM CHLORIDE 0.9% 250 ML IVPB SCH ×2 (12:01→12:59)
--- NOTE | 2019-11-26 12:59 | PN ---
PROGRESS NOTE 89-year-old white male with COPD and congestive heart failure. He has cough, congestion with purulent yellow green phlegm. Going to order Azithromycin back on for that. Do a chest x-ray to rule out pneumonia and put back on his DuoNeb updraft that he takes at home. Cardiology has switched some of his medicines to oral. We are rechecking blood cultures due to positive gram-positive blood culture. Await Dr. Morocho's recommendations. Lungs show scattered rhonchi and wheeze. Cardiovascular: S1-S2. Hematology negative Homans. Vital signs reviewed. ASSESSMENT: 1. Atrial fibrillation, rapid ventricular response. 2. Congestive heart failure, acute on chronic, systolic and diastolic. 3. Bacteremia. 4. Gout. 5. Cellulitis of the right hand. 6. Tracheobronchitis versus pneumonia. 7. Please see further orders. MMODL / IJN: [id number] /
--- NOTE | 2019-11-26 13:26 | XR ---
EXAMINATION TYPE: XR chest 2V DATE OF EXAM: 11/26/2019 HISTORY: hap. REFERENCE: Previous study dated 11/25/2019. FINDINGS: There is been a previous midline sternotomy. There is a bipolar pacemaker place on the left . Lung volumes are prominent. The heart is mildly enlarged. There is some scarring or atelectasis at th e left lung base. Lungs otherwise clear. I could not exclude a tiny left effusion. IMPRESSION: 1. COPD. 2. CARDIOMEGALY. 3. SCARRING OR ATELECTASIS, LEFT LUNG BASE WITH A CONCOMITANT SMALL EFFUSION.
[2019-11-26] MEDS: LACTATE PO SCH (15:45)
[2019-11-26] MEDS: MAGNESIUM PO SCH (15:45)
[2019-11-26] MEDS: CHOLECALCIFEROL 1,000 UNIT TAB PO SCH (15:52)
[2019-11-26] MEDS: ATORVASTATIN 10 MG TAB PO SCH (19:36)
[2019-11-26] MEDS: SODIUM CHLORIDE 0.9% 1,000 ML IV SCH (19:37)
--- NOTE | 2019-11-26 20:17 | PN ---
PROGRESS NOTE DATE OF SERVICE: 11/26/2019 REASON FOR FOLLOWUP: 1. Positive blood cultures, likely contamination. 2. Right hand swelling likely . 3. Possible pneumonia. INTERIM HISTORY: The patient is currently afebrile. Patient complaining of some rigors and chills for which influenza testing was initially negative. Denies any chest pain. Occasional cough. No abdominal pain. No diarrhea. PHYSICAL EXAMINATION: Blood pressure 103/65, pulse of 50, temperature is 97.5. He is 94% on room air. General description is an elderly male lying in bed in no distress. Respiratory system: Unlabored breathing. Decreased intensity in the breath sounds. No wheeze. Heart S1, S2. Regular rate and rhythm. Abdomen soft, no tenderness. Right hand dorsum swelling and redness has resolved. LABS: Hemoglobin is 11, with a white count 15.9, BUN 52, creatinine 1.96. Blood culture repeat has been negative. Sputum cultures currently pending. DIAGNOSTIC IMPRESSION AND PLAN: 1. Patient with positive blood culture, micrococcus specie which is likely contamination. However, blood cultures negative. Currently covered with vancomycin. 2. Patient with right hand dorsum swelling and pain, likely arthritis. Clinically responding to steroids. 3. steroid effect. 4. Patient with cough, possible bronchitis. Chest x-ray negative for any pneumonia, on Rocephin, may consider a course of doxycycline on discharge. 5. Continue supportive care. MMODL / IJN: [id number] /
[2019-11-26] MEDS: IPRATROPIUM-ALBUTEROL 3 ML NEB INHALATION SCH (21:08)
[2019-11-27] MEDS: IPRATROPIUM-ALBUTEROL 3 ML NEB INHALATION SCH ×3 (00:21→12:35)
[2019-11-27 06:45] LABS: Basophils % (A) 0 %; Eosinophils % (A) 0 %; HCT 35.4 % (39.0-53.0); HGB 11.3 gm/dL (13.0-17.5); Hypochromasia Slight; Lymphocytes # (A) 1.2 k/uL (1.0-4.8); Lymphocytes % (A) 11 %; MCH 29.9 pg (25.0-35.0); MCHC 31.8 g/dL (31.0-37.0); MCV 94.1 fL (80.0-100.0); Mean Platelet Volume 8.4; Monocytes # (A) 0.2 k/uL (0-1.0); Monocytes % (A) 2 %; Neutrophils # (A) 9.1 k/uL (1.3-7.7); Neutrophils % (A) 86 %; Platelet Count 171 k/uL (150-450); RBC 3.77 m/uL (4.30-5.90); RDW 14.5 % (11.5-15.5); WBC 10.6 k/uL (3.8-10.6)
[2019-11-27 07:09] LABS: Calcium 8.2 mg/dL (8.4-10.2); Potassium 4.6 mmol/L (3.5-5.1); Total Bilirubin 0.2 mg/dL (0.2-1.3); Total Protein 5.8 g/dL (6.3-8.2)
[2019-11-27] MEDS ORDERED: AZITHROMYCIN 500 MG TAB PO SCH (09:00)
[2019-11-27] MEDS: FUROSEMIDE 40 MG TAB PO SCH (09:40)
[2019-11-27] MEDS: RIVAROXABAN 15 MG TAB PO SCH (09:40)
[2019-11-27] MEDS: ALLOPURINOL 300 MG TAB PO SCH (09:40)
[2019-11-27] MEDS: TAMSULOSIN 0.4 MG CAP.ER.24H PO SCH (09:40)
[2019-11-27] MEDS: LORATADINE 10 MG TAB PO SCH (09:40)
[2019-11-27] MEDS: METOPROLOL SUCCINATE (ER) 50 MG TAB.ER.24H PO SCH (09:41)
[2019-11-27] MEDS: methylPREDNISolone 4 MG TAB TAPER PO SCH (09:41)
[2019-11-27] MEDS: AMIODARONE 200 MG TAB PO SCH (09:41)
[2019-11-27] MEDS: PANTOPRAZOLE 40 MG TABLET PO SCH (09:41)
[2019-11-27] MEDS: MONTELUKAST 10 MG TAB PO SCH (09:41)
--- NOTE | 2019-11-27 09:53 | P.PN ---
Subjective Progress Note Date: 11/27/19 This is an 89-year-old with known history of ischemic cardiomyopathy, chronic persistent atrial fibrillation, COPD, history of prior myocardial infarction with prior bypass surgery, prior AICD implant, chronic systolic heart failure, presented to the hospital primarily with right wrist pain and swelling. Patient had runs of nonsustained ventricular tachycardia on his initial presentation here, he has had no further evidence of any ventricular arrhythmias and overall is doing quite well. Blood cultures were suggestive of micrococcus second blood culture was negative, likely contaminant. Blood pressure 120/70 with a heart rate in the 60s 95% on room air, afebrile. White blood cell count 10.6, hem oglobin 11.3, platelet count 171, sodium 139, potassium 4.6, BUN 68, creatinine 1.7. Influenza A and B-. Objective - Vital Signs Vital signs: Vital Signs Temp 98.1 F 11/27/19 03:38 Pulse 65 11/27/19 03:38 Resp 18 11/27/19 03:38 BP 121/72 11/27/19 03:38 Pulse Ox 95 11/27/19 03:38 Intake & Output 11/26/19 11/27/19 11/27/19 18:59 06:59 18:59 Intake Total 650 480 Output Total 100 Balance 650 380 Weight 76.6 kg Intake: Oral 650 480 Output: Urine 100 Other: Voiding Method Urinal # Voids 1 - Exam PHYSICAL EXAMINATION: GENERAL: 89-year-old gentleman in no acute distress at the time of my examination HEENT: Head is atraumatic, normocephalic. Pupils equal, round. Sclera anicteric. Conjunctiva are clear. Mucous membranes of the mouth are moist. Neck is supple. There is no elevated jugular venous pressure.] bruit is heard. HEART EXAMINATION: Heart S1, S2 normal. No murmur or gallop heard. CHEST EXAMINATION: Lungs are clear to auscultation and precussion. No chest wall tenderness is noted on palpation or with deep breathing. ABDOMEN: Soft, nontender. Bowel sounds are heard. No organomegaly noted. EXTREMITIES: 2+ peripheral pulses with no evidence of peripheral edema and no calf tenderness noted. NEUROLOGIC patient is awake, alert and oriented 3 . . - Labs CBC & Chem 7: 11/27/19 06:19 03/23/20 06:19 Labs: Abnormal Lab Results - Last 24 Hours (Table) 11/27/19 11/27/19 Range/Units 06:19 06:19 RBC 3.77 L (4.30-5.90) m/uL Hgb 11.3 L (13.0-17.5) gm/dL Hct 35.4 L (39.0-53.0) % Neutrophils # 9.1 H (1.3-7.7) k/uL Chloride 109 H (98-107) mmol/L BUN 68 H (9-20) mg/dL Creatinine 1.77 H (0.66-1.25) mg/dL Glucose 117 H (74-99) mg/dL Calcium 8.2 L (8.4-10.2) mg/dL AST 68 H (17-59) U/L Total Protein 5.8 L (6.3-8.2) g/dL Albumin 3.0 L (3.5-5.0) g/dL Microbiology - Last 24 Hours (Table) 11/25/19 20:20 Gram Stain - Final Sputum Sputum Culture - Final 11/24/19 16:16 Blood Culture - Preliminary Blood No Growth after 48 hours Assessment and Plan Plan: Assessment and plan #1 right wrist swelling and pain, 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 Patient is currently euvolemic #3 coronary artery disease with prior bypass surgery #4 hyperlipidemia #5 hypertension #6 nonsustained ventricular tachycardia on oral amiodarone #7 blood culture positive for Micrococcus, second blood culture negative, likely contaminant Plan From cardiology's perspective, patient may be able to be discharged home today, we will make him a follow-up appointment in the office post discharge. Continue current medication. DNP note has been reviewed, I agree with a documented findings and plan of care. Patient was seen and examined.
[2019-11-27 10:57] VITALS: TEMP 97.6
[2019-11-27 12:58] VITALS: BP 118/65; PULSE 57; RESP 18
--- NOTE | 2019-11-27 15:01 | P.DS ---
Providers Date of admission: 11/23/19 17:20 Expected date of discharge: 11/27/19 Attending physician: Dg Yadav Consults: 11/23/19 17:20 Consult Physician Routine Consulting Provider: Jeff Vidal Consult Reason/Comments: Right wrist pain and swelling Do you want consulting provider notified?: Yes Consult Physician Routine Consulting Provider: Nate Kumar Consult Reason/Comments: chf Do you want consulting provider notified?: Yes 11/24/19 15:26 Consult Physician Routine Consulting Provider: Vannessa Morocho Consult Reason/Comments: positive blood cultures Do you want consulting provider notified?: Yes [facility] Course: Final Diagnoses: Acute on Chronic Atrial fibrillation with RVR Non Sustained V Tach CAD, history of CABG Ischemic cardiomyopathy ,AICD Acute on chronic congestive heart failure, systolic and diastolic dysfunction Bacteremia with micrococcus, suspect contamination Acute gout exacerbation of the right wrist, improving with steroids Right hand cellulitis Possible Pneumonia with tracheobronchitis Hospital course: This is a 89-year-old gentleman admitted with acute COPD, CHF exacerbation, atrial fibrillation as well as bacteremia and multiple other medical issues. Maintained on IV antibiotics as per infectious disease and antiarrhythmics as per cardiology. Cleared by cardiology for discharge. Patient is being discharged home in a stable condition, with guarded prognosis, pending infectious disease clearance with DC recommendations. Microbiology 11/25/19 20:20 Sputum Gram Stain - Final 11/25/19 20:20 Sputum Sputum Culture - Final 11/24/19 16:16 Blood Blood Culture - Preliminary No Growth after 48 hours 11/23/19 15:20 Blood Blood Culture Gram Stain - Final 11/23/19 15:20 Blood Blood Culture - Final Micrococcus species 11/23/19 15:10 Blood Blood Culture - Final The impression and plan of care has been dictated as directed. : I performed a history and examination of this patient, discussed the same with the dictator. I agree with the dictator's note ,documented as a scribe. Any additional findings or plans will be noted. Patient Condition at Discharge: Stable Plan - Discharge Summary Discharge Rx Participant: No New Discharge Prescriptions: New Furosemide [Lasix] 40 mg PO DAILY #30 tab methylPREDNISolone Dose Pack [Medrol Dose Pack] 4 mg PO DIRECTED #21 package Metoprolol Succinate (ER) [Toprol XL] 50 mg PO DAILY #30 tab.er.24h Continue Loratadine [Claritin] 10 mg PO DAILY Montelukast [Singulair] 10 mg PO DAILY Rivaroxaban [Xarelto] 15 mg PO DAILY Omeprazole [PriLOSEC] 20 mg PO DAILY Finasteride [Proscar] 5 mg PO DAILY Cholecalciferol [Vitamin D3 (25 Mcg = 1000 Iu)] 1,000 unit PO DAILY@1700 Simvastatin [Zocor] 20 mg PO HS Allopurinol [Zyloprim] 300 mg PO DAILY Magnesium l-Lactate [Mag-Tab Sr] 84 mg PO DAILY@1700 Tamsulosin [Flomax] 0.4 mg PO DAILY cap.er.24h Olopatadine HCl [Patanol] 1 drop BOTH EYES DAILY PRN PRN Reason: Allergy Symptoms Discontinued Metoprolol Succinate [Toprol XL] 25 mg PO DAILY Discharge Medication List Loratadine [Claritin] 10 mg PO DAILY 03/28/14 [History] Montelukast [Singulair] 10 mg PO DAILY 03/28/14 [History] Rivaroxaban [Xarelto] 15 mg PO DAILY 12/26/14 [History] Omeprazole [PriLOSEC] 20 mg PO DAILY 12/30/14 [History] Cholecalciferol [Vitamin D3 (25 Mcg = 1000 Iu)] 1,000 unit PO DAILY@1700 07/24/17 [History] Finasteride [Proscar] 5 mg PO DAILY 07/24/17 [History] Allopurinol [Zyloprim] 300 mg PO DAILY 08/30/19 [History] Magnesium l-Lactate [Mag-Tab Sr] 84 mg PO DAILY@1700 08/30/19 [History] Simvastatin [Zocor] 20 mg PO HS 08/30/19 [History] Tamsulosin [Flomax] 0.4 mg PO DAILY cap.er.24h 09/07/19 [Rx] Olopatadine HCl [Patanol] 1 drop BOTH EYES DAILY PRN 11/23/19 [History] Furosemide [Lasix] 40 mg PO DAILY #30 tab 11/27/19 [Rx] Metoprolol Succinate (ER) [Toprol XL] 50 mg PO DAILY #30 tab.er.24h 11/27/19 [Rx] methylPREDNISolone Dose Pack [Medrol Dose Pack] 4 mg PO DIRECTED #21 package 11/27/19 [Rx] Follow up Appointment(s)/Referral(s): Dg Yadav MD [Primary Care Provider] - 3 Days Jeff Vidal DO [Medical Doctor] - 1 Week Ambulatory/Diagnostic Orders: Complete Blood Count w/diff [LAB.AMB] Time Frame: 3 Days, Location: None Selected Patient Instructions/Handouts: Heart Failure (GEN) Activity/Diet/Wound Care/Special Instructions: Amiodarone taper Rx as per cardiology Antibx as per ID Ice elevate right wrist prn Activities as tolerated
--- NOTE | 2019-11-27 17:14 | PN ---
PROGRESS NOTE DATE OF SERVICE: 11/27/2019 REASON FOR FOLLOWUP: 1. Positive blood culture, likely contamination. 2. Tracheobronchitis. INTERVAL HISTORY: The patient is currently afebrile. The patient is breathing comfortably. Patient's right wrist swelling and redness and pain have resolved. He is able to use it. The patient denies having any chest pain or shortness of breath. Very minimal cough. No sputum. No nausea, vomiting. No abdominal pain. No diarrhea. PHYSICAL EXAMINATION: Blood pressure 118/55 with a pulse of 57, temperature 97.6. He is 96% on room air. General description is an elderly male lying in bed in no distress. RESPIRATORY SYSTEM: Unlabored breathing. Clear to auscultation anteriorly. HEART: S1, S2. Regular rate and rhythm. ABDOMEN: Soft. No tenderness. Right wrist swelling and redness have resolved. LABS: White count normal at 10.6. Creatinine 1.77. DIAGNOSTIC IMPRESSION AND PLAN: 1. Patient with a positive blood culture with micrococcus species, likely skin contamination. All the blood cultures have been negative. No need for further workup for the same. 2. Patient with possible tracheobronchitis, less likely pneumonia. Will finish therapy with oral doxycycline. Prescription was sent to the pharmacy. MMODL / IJN: [id number] /
[2019-11-27] MEDS: MAGNESIUM PO SCH (18:49)
[2019-11-27] MEDS: LACTATE PO SCH (18:49)
[2019-11-27] MEDS: CHOLECALCIFEROL 1,000 UNIT TAB PO SCH (18:49)
== END 2019-11-27 18:53 | disposition home health service (06) | DRG 553 ==
LOC: EC 14:38 → 3SCARD 17:20
PROVIDERS: ADMIT Family Medicine; ATTEND Family Medicine
DX: M10.9 Gout, unspecified (principal); I50.43 Acute on chronic combined systolic (congestive) and diastolic (congestive) heart failure; R78.81 Bacteremia; I47.2 Ventricular tachycardia; I48.19 Other persistent atrial fibrillation; J44.1 Chronic obstructive pulmonary disease with (acute) exacerbation; J44.0 Chronic obstructive pulmonary disease with (acute) lower respiratory infection; L03.113 Cellulitis of right upper limb; E11.9 Type 2 diabetes mellitus without complications; I11.0 Hypertensive heart disease with heart failure; J20.9 Acute bronchitis, unspecified; I25.5 Ischemic cardiomyopathy; N42.9 Disorder of prostate, unspecified; E07.9 Disorder of thyroid, unspecified; E78.5 Hyperlipidemia, unspecified; I25.10 Atherosclerotic heart disease of native coronary artery without angina pectoris; K21.9 Gastro-esophageal reflux disease without esophagitis; G47.30 Sleep apnea, unspecified; M19.90 Unspecified osteoarthritis, unspecified site; I25.2 Old myocardial infarction; H91.90 Unspecified hearing loss, unspecified ear; Z87.01 Personal history of pneumonia (recurrent); Z79.01 Long term (current) use of anticoagulants; Z79.899 Other long term (current) drug therapy; Z85.828 Personal history of other malignant neoplasm of skin; Z95.810 Presence of automatic (implantable) cardiac defibrillator; Z95.1 Presence of aortocoronary bypass graft; Z95.5 Presence of coronary angioplasty implant and graft; Z87.448 Personal history of other diseases of urinary system; Z98.42 Cataract extraction status, left eye; Z98.41 Cataract extraction status, right eye; Z91.048 Other nonmedicinal substance allergy status; Z83.3 Family history of diabetes mellitus; Z82.49 Family history of ischemic heart disease and other diseases of the circulatory system; Z82.5 Family history of asthma and other chronic lower respiratory diseases
CPT/HCPCS: 36415; 71046; 80053; 82565; 83735; 83880; 84132; 84550; 85025; 85652; 86140; 86431; 87040; 87070; 87205; 87502; 96374; 99284

== ENCOUNTER 2020-02-10 12:43 | Emergency (ER) | payer MEDICARE, BC ==
[2020-02-10 12:52] VITALS: RESP 18; TEMP 97.7
[2020-02-10] MEDS ORDERED: KETOROLAC 60 MG/2 ML VIAL IM STA (13:00)
--- NOTE | 2020-02-10 13:04 | ED ---
General Adult HPI - General Chief complaint: Fall Stated complaint: fall, back pain Time Seen by Provider: 02/10/20 12:45 Source: patient, RN notes reviewed, old records reviewed Mode of arrival: ambulatory Limitations: no limitations - History of Present Illness Initial comments: this is an 89-year-old male who presents emergency Department complaining of right-sided rib pain. Patient states yesterday he tripped just before he was about to go up the steps and hit the railing on his right side. Patient states she's had no difficulty breathing but it does hurt to take a deep breath. Patient denies any anterior chest pain. Patient denies any recent fever chills or cough. Patient denies any other injury. Patient denies hitting his head or hurting his neck. - Related Data Home Medications Medication Instructions Recorded Confirmed Loratadine [Claritin] 10 mg PO DAILY 03/28/14 11/23/19 Montelukast [Singulair] 10 mg PO DAILY 03/28/14 11/23/19 Rivaroxaban [Xarelto] 15 mg PO DAILY 12/26/14 11/23/19 Omeprazole [PriLOSEC] 20 mg PO DAILY 12/30/14 11/23/19 Cholecalciferol [Vitamin D3 (25 1,000 unit PO DAILY@1700 07/24/17 11/23/19 Mcg = 1000 Iu)] Finasteride [Proscar] 5 mg PO DAILY 07/24/17 11/23/19 Allopurinol [Zyloprim] 300 mg PO DAILY 08/30/19 11/23/19 Magnesium l-Lactate [Mag-Tab Sr] 84 mg PO DAILY@1700 08/30/19 11/23/19 Simvastatin [Zocor] 20 mg PO HS 08/30/19 11/23/19 Olopatadine HCl [Patanol] 1 drop BOTH EYES DAILY PRN 11/23/19 11/23/19 Previous Rx's Medication Instructions Recorded Tamsulosin [Flomax] 0.4 mg PO DAILY cap.er.24h 09/07/19 Amiodarone [Cordarone] 200 mg PO BID #60 tab 11/27/19 Doxycycline [Vibramycin] 100 mg PO BID #10 capsule 11/27/19 Furosemide [Lasix] 40 mg PO DAILY #30 tab 11/27/19 Metoprolol Succinate (ER) [Toprol 50 mg PO DAILY #30 tab.er.24h 11/27/19 XL] methylPREDNISolone Dose Pack 4 mg PO DIRECTED #21 package 11/27/19 [Medrol Dose Pack] Allergies Allergy/AdvReac Type Severity Reaction Status Date / Time smoke Allergy Dyspnea Uncoded 11/23/19 19:32 Review of Systems ROS Statement: Those systems with pertinent positive or pertinent negative responses have been documented in the HPI. ROS Other: All systems not noted in ROS Statement are negative. Past Medical History Past Medical History: Coronary Artery Disease (CAD), Cancer, COPD, GERD/Reflux, Hearing Disorder / Deafness, Hyperlipidemia, Osteoarthritis (OA), Pneumonia, Prostate Disorder, Renal Disease, Sleep Apnea/CPAP/BIPAP, Thyroid Disorder Additional Past Medical History / Comment(s): GOUT; not currently using CPAP, see Dr Sanchez H&P, edema left lower leg, bruises easily, hx skin cancer Last Myocardial Infarction Date:: 2001 History of Any Multi-Drug Resistant Organisms: None Reported Past Surgical History: AICD, Coronary Bypass/CABG, Heart Catheterization With Stent, Hernia Repair, Orthopedic Surgery, Pacemaker Additional Past Surgical History / Comment(s): 4 Vessel CABG 2002. 2 STENTS 2001. HAS 2 PINS IN RT ACHILLES. parathyroid surgery, AICD/PACEMAKER, [facility]. 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, recent biopsy left ear, maximus cataracts Past Anesthesia/Blood Transfusion Reactions: No Reported Reaction Date of Last Stent Placement:: UNK Type of Cardiac Device: Permanent Pacemaker, AICD Device Placement Date:: unknown Past Psychological History: No Psychological Hx Reported Smoking Status: Never smoker Past Alcohol Use History: None Reported Past Drug Use History: None Reported - Past Family History Father Family Medical History: Congestive Heart Failure (CHF), Diabetes Mellitus Additional Family Medical History / Comment(s): AT AGEG 66 FROM CHF Mother Family Medical History: COPD Additional Family Medical History / Comment(s): AT AGE FROM ANEURYSM Sister(s) Family Medical History: Cancer General Exam - General Exam Comments Initial Comments: GENERAL: Patient is well-developed and well-nourished. Patient is nontoxic and well- hydrated and is in no acute distress. ENT: Neck is soft and supple. No significant lymphadenopathy is noted. Oropharynx is clear. Moist mucous membranes. Neck has full range of motion without eliciting any pain. EYES: The sclera were anicteric and conjunctiva were pink and moist. Extraocular movements were intact and pupils were equal round and reactive to light. Eyelids were unremarkable. PULMONARY: Unlabored respirations. Good breath sounds bilaterally. No audible rales rhonchi or wheezing was noted. CARDIOVASCULAR: There is a regular rate and rhythm without any murmurs gallops or rubs. Patient has right lateral rib pain to the 11th and 12th rib area. Patient has a small area of ecchymosis in that spot. ABDOMEN: Soft and nontender with normal bowel sounds. No palpable organomegaly was noted. There is no palpable pulsatile mass. SKIN: Skin is clear with no lesions or rashes and otherwise unremarkable. NEUROLOGIC: Patient is alert and oriented x3. Cranial nerves II through XII are grossly intact. Motor and sensory are also intact. Normal speech, volume and content. Symmetrical smile. MUSCULOSKELETAL: Normal extremities with adequate strength and full range of motion. LYMPHATICS: No significant lymphadenopathy is noted PSYCHIATRIC: Normal psychiatric evaluation. Limitations: no limitations Course Vital Signs 02/10/20 12:46 Temperature 97.7 F Pulse Rate 50 L Respiratory 18 Rate Blood Pressure 120/59 O2 Sat by Pulse 98 Oximetry Medical Decision Making - Medical Decision Making Chest x-ray and rib films were negative for fracture or pneumo Disposition Clinical Impression: Rib contusion Disposition: HOME SELF-CARE Condition: Good Instructions (If sedation given, give patient instructions): Fall Prevention for Older Adults (ED), Rib Contusion (ED) Is patient prescribed a controlled substance at d/c from ED?: No Referrals: Dg Yadav MD [Primary Care Provider] - 1-2 days Time of Disposition: 13:42
--- NOTE | 2020-02-10 13:28 | XR ---
EXAMINATION TYPE: XR ribs RT w pa chest xray , 5 VIEWS DATE OF EXAM ORDERED: 02/10/2020 HISTORY: Trauma . COMPARISON: Previous study dated 11/26/2019. FINDINGS: There has been a midline sternotomy. There is a bipolar pacemaker in place on the left. The lungs are overinflated. The heart is enlarged. There is some scarring in the left lung base. No p neumothorax is evident. No displaced rib fracture is seen. IMPRESSION: 1. COPD. 2. SCARRING VERSUS ATELECTASIS, LEFT LUNG BASE. 3. I DO NOT SEE A DISPLACED RIB FRACTURE AT THIS TIME.
[2020-02-10 14:08] VITALS: BP 123/64; PULSE 61
== END 2020-02-10 14:06 | disposition home or self-care (01) ==
LOC: EC 12:43
DX: S20.211A Contusion of right front wall of thorax, initial encounter (principal); M54.9 Dorsalgia, unspecified; I25.10 Atherosclerotic heart disease of native coronary artery without angina pectoris; J44.9 Chronic obstructive pulmonary disease, unspecified; K21.9 Gastro-esophageal reflux disease without esophagitis; E78.5 Hyperlipidemia, unspecified; N42.9 Disorder of prostate, unspecified; I25.2 Old myocardial infarction; M10.9 Gout, unspecified; G47.30 Sleep apnea, unspecified; Z99.89 Dependence on other enabling machines and devices; Z85.828 Personal history of other malignant neoplasm of skin; Z95.810 Presence of automatic (implantable) cardiac defibrillator; Z95.1 Presence of aortocoronary bypass graft; Z95.5 Presence of coronary angioplasty implant and graft; Z79.01 Long term (current) use of anticoagulants; Z79.899 Other long term (current) drug therapy; Z91.048 Other nonmedicinal substance allergy status; W01.10XA Fall on same level from slipping, tripping and stumbling with subsequent striking against unspecified object, initial encounter; Y92.009 Unspecified place in unspecified non-institutional (private) residence as the place of occurrence of the external cause
CPT/HCPCS: 71101; 99284; 96372; J1885

== ENCOUNTER → 2020-03-19 | Outpatient (CLI) | payer MEDICARE, BC ==
--- NOTE | 2020-03-19 17:53 | CT ---
EXAMINATION TYPE: CT chest wo con DATE OF EXAM: 03/19/2020 COMPARISON: CT chest 09/05/2019. HISTORY: Follow up aneurysm. Thoracic aortic aneurysm. CT DLP: 480.5 mGycm. Automated Exposure Control for Dose Reduction was Utilized. TECHNIQUE: CT scan of the thorax is performed without IV contrast. FINDINGS: LUNGS: There is improved aeration of the bilateral lungs versus 09/05/2019 CT comparison, with persis tent ground glass opacities of the basilar left lower lobe. Improved pleural effusions, with trace re sidual left effusion. Redemonstrated areas of pleural thickening and atelectasis. Right lower lobe ca lcified granuloma. No pneumothorax. Tracheobronchial tree is patent. CARDIOMEDIASTINAL: Left-sided dual-chamber pacemaker. Calcified coronary artery disease. Unchanged ca rdiomegaly. No pericardial effusion. Unchanged 4.2 cm ascending thoracic aortic aneurysm. Calcified a therosclerotic disease of the thoracic and visualized abdominal aorta. Lack of IV contrast is noted t o limit evaluation for mediastinal and especially hilar adenopathy. There are no definitive greater t morton 1 cm hilar or mediastinal lymph nodes. No axillary adenopathy. OTHER: Old rib fracture deformities. Degenerative changes of the spine and bilateral shoulders. Osteo porosis. Increased thoracic kyphosis. IMPRESSION: 1. Unchanged 4.2 cm ascending thoracic aortic aneurysm. 2. Improved aeration of the bilateral lungs versus 09/05/2019 CT comparison, with persistent left ba silar groundglass opacities and trace left pleural effusion.
== END ==
LOC: RADCTMAIN 13:52
PROVIDERS: ATTEND Family Medicine
DX: I71.2 Thoracic aortic aneurysm, without rupture (principal)
CPT/HCPCS: 71250

== ENCOUNTER → 2020-05-10 | Outpatient (CLI) | payer MEDICARE, BC | END | disposition home or self-care (01) | LOC: LABWHC1 12:55 | PROVIDERS: ATTEND Otolaryngology | DX: U07.1 COVID-19 (principal) | CPT/HCPCS: U0003; C9803 ==

== ENCOUNTER → 2020-06-28 | Outpatient (CLI) | payer MEDICARE, BC ==
--- NOTE | 2020-06-28 16:09 | CT ---
EXAMINATION TYPE: CT soft tissue neck wo con DATE OF EXAM: 06/28/2020 COMPARISON: Cervical spine CT 08/30/2019 HISTORY: 89-year-old male Hemoptysis and sore throat for a couple months. TECHNIQUE: Contiguous axial scanning of the soft tissues of the neck without IV contrast. Coronal and sagittal reconstructions performed. CT DLP: 374.5 mGycm Automated exposure control for dose reduction was used. FINDINGS: Moderate mucosal thickening floor of the right maxillary sinus and mild along the floor of the left m axillary sinus. Mastoid air cells are pneumatized. Lack of IV contrast limits assessment of the cervical mucosal space. Allowing for this limitation, nasopharynx appear grossly clear. There is dental amalgam obscuring portions of the oral cavity. Unable to exclude asymmetric thickening along the left tonsillar pillar, axial image 53. Epiglottis a nd prevertebral soft tissues are satisfactory. There is asymmetry to the left piriform sinus probably soft tissue redundancy, axial image 43. Tracheal column and visualized upper lungs otherwise show no gross abnormality. No cervical lymphadenopathy is identified. Left anterior chest wall AICD generator with right atrial and right ventricular leads. Median sternot roger wires are present. Mildly aneurysmal proximal arch of 4.1 cm. Conventional arch vessel branching anatomy. Tortuous right brachiocephalic artery. Thyroid gland is slightly small. The submandibular and parotid glands appear satisfactory. Degenerative change of both shoulders. Advanced hypertrophic facet arthropathy throughout the cervica l spine. IMPRESSION: 1. Lack of IV contrast limits assessment of the cervical mucosal space. Unable to exclude asymmetric thickening along the left tonsillar pillar on axial image 53. Correlate with direct visualization to exclude a mucosal lesion. 2. Direct inspection can also assess the left piriform sinus where we suspect some soft tissue redund khadijah rather than a mucosal lesion. 3. Mildly aneurysmal proximal aortic arch at 4.1 cm. Moderate chronic right maxillary and mild left m axillary sinus disease.
== END | disposition home or self-care (01) ==
LOC: RADCTMAIN 15:21
PROVIDERS: ATTEND Family Medicine
DX: J32.0 Chronic maxillary sinusitis (principal); J34.89 Other specified disorders of nose and nasal sinuses; R04.2 Hemoptysis
CPT/HCPCS: 70490

== ENCOUNTER → 2021-02-18 | Outpatient (CLI) | payer MEDICARE, BC ==
--- NOTE | 2021-02-18 16:06 | US ---
EXAMINATION TYPE: US kidneys/renal and bladder DATE OF EXAM: 02/18/2021 COMPARISON: CT 08/30/2019 US 11/30/2016 CLINICAL HISTORY: N18.31 CKD disease stage 3a. EXAM MEASUREMENTS: Right Kidney: 7.6 x 4.2 3.7 cm Left Kidney: 9.2 x 4.1 x 3.7 cm Right Kidney: no hydronephrosis, measuring small, loss of corticomedullary differentiation. cystic ar ea mid pole measuring 1.6 x 1.0 x 1.3 cm, unchanged Left Kidney: No hydronephrosis or masses seen. Loss of corticomedullary differentiation Bladder: Not distended There is no evidence for hydronephrosis at this point in time. No nephrolithiasis is seen. IMPRESSION: No significant changes since the prior exam.
== END | disposition home or self-care (01) ==
LOC: RADUSWWP 15:10
PROVIDERS: ATTEND Internal Medicine Nephrology
DX: N18.31 Chronic kidney disease, stage 3a (principal)
CPT/HCPCS: 76770

== ENCOUNTER 2021-07-21 19:26 | Inpatient (IN) | payer MEDICARE, BC ==
--- NOTE | 2021-07-21 21:43 | XR ---
EXAMINATION TYPE: XR ribs RT w pa chest xray DATE OF EXAM: 07/21/2021 COMPARISON: 02/10/2020 HISTORY: Fall. Chest pain TECHNIQUE: 5 views FINDINGS: There is no heart failure nor confluent pneumonic infiltrate. There is left axillary pacema ker. There are sternal wires. The right ribs appear intact. There is no pleural effusion or pneumotho rax. IMPRESSION: No active cardiopulmonary disease. No rib fracture seen. No adverse change. Cardiomegaly.
--- NOTE | 2021-07-21 23:12 | ED ---
General Adult HPI - General Chief complaint: Fall Stated complaint: Fall, RT rib pain Time Seen by Provider: 07/21/21 20:59 Source: patient, EMS Mode of arrival: EMS Limitations: no limitations - History of Present Illness Initial comments: Patient is an 89-year-old man who comes by ambulance to be evaluated for generalized weakness. The patient had attempted to walk at his residence but found he couldn't support himself. He fell. He then was not able to get up and continue ambulating. Patient states that he is also having some pain to the right ribs. Fall occurred at 6 PM. No loss of consciousness. No head or neck pain. -: minutes(s) Location: chest (Right ribs) Quality: aching Consistency: constant Improves with: none Worsens with: none Associated Symptoms: weakness Treatments Prior to Arrival: none - Related Data Home Medications Medication Instructions Recorded Confirmed Loratadine [Claritin] 10 mg PO DAILY 03/28/14 11/23/19 Montelukast [Singulair] 10 mg PO DAILY 03/28/14 11/23/19 Rivaroxaban [Xarelto] 15 mg PO DAILY 12/26/14 11/23/19 Omeprazole [PriLOSEC] 20 mg PO DAILY 12/30/14 11/23/19 Cholecalciferol [Vitamin D3 (25 1,000 unit PO DAILY@1700 07/24/17 11/23/19 Mcg = 1000 Iu)] Finasteride [Proscar] 5 mg PO DAILY 07/24/17 11/23/19 Magnesium l-Lactate [Mag-Tab Sr] 84 mg PO DAILY@1700 08/30/19 11/23/19 Simvastatin [Zocor] 20 mg PO HS 08/30/19 11/23/19 allopurinoL [Zyloprim] 300 mg PO DAILY 08/30/19 11/23/19 Olopatadine HCl [Patanol 0.1%] 1 drop BOTH EYES DAILY PRN 11/23/19 11/23/19 Previous Rx's Medication Instructions Recorded Tamsulosin [Flomax] 0.4 mg PO DAILY cap.er.24h 09/07/19 Amiodarone [Cordarone] 200 mg PO BID #60 tab 11/27/19 Doxycycline [Vibramycin] 100 mg PO BID #10 capsule 11/27/19 Furosemide [Lasix] 40 mg PO DAILY #30 tab 11/27/19 Metoprolol Succinate (ER) [Toprol 50 mg PO DAILY #30 tab.er.24h 11/27/19 XL] methylPREDNISolone Dose Pack 4 mg PO DIRECTED #21 package 11/27/19 [Medrol Dose Pack] Allergies Allergy/AdvReac Type Severity Reaction Status Date / Time smoke Allergy Dyspnea Uncoded 07/21/21 19:38 Review of Systems ROS Statement: Those systems with pertinent positive or pertinent negative responses have been documented in the HPI. ROS Other: All systems not noted in ROS Statement are negative. Constitutional: Reports: weakness. Denies: fever, chills Respiratory: Reports: dyspnea. Denies: cough, wheezes Cardiovascular: Denies: chest pain, palpitations, orthopnea, edema, syncope Gastrointestinal: Denies: abdominal pain, vomiting, diarrhea Genitourinary: Denies: dysuria, hematuria Musculoskeletal: Denies: back pain Skin: Denies: rash Neurological: Denies: headache, weakness, numbness Past Medical History Past Medical History: Coronary Artery Disease (CAD), Cancer, COPD, GERD/Reflux, Hearing Disorder / Deafness, Hyperlipidemia, Osteoarthritis (OA), Pneumonia, Prostate Disorder, Renal Disease, Sleep Apnea/CPAP/BIPAP, Thyroid Disorder Additional Past Medical History / Comment(s): GOUT; not currently using CPAP, see Dr Sanchez H&P, edema left lower leg, bruises easily, hx skin cancer Last Myocardial Infarction Date:: 2001 History of Any Multi-Drug Resistant Organisms: None Reported Past Surgical History: AICD, Coronary Bypass/CABG, Heart Catheterization With Stent, Hernia Repair, Orthopedic Surgery, Pacemaker Additional Past Surgical History / Comment(s): 4 Vessel CABG 2002. 2 STENTS 2001. HAS 2 PINS IN RT ACHILLES. parathyroid surgery, AICD/PACEMAKER, [facility]. 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, recent biopsy left ear, maximus cataracts Past Anesthesia/Blood Transfusion Reactions: No Reported Reaction Date of Last Stent Placement:: UNK Type of Cardiac Device: Permanent Pacemaker, AICD Device Placement Date:: unknown Past Psychological History: No Psychological Hx Reported Past Alcohol Use History: None Reported Past Drug Use History: None Reported - Past Family History Father Family Medical History: Congestive Heart Failure (CHF), Diabetes Mellitus Additional Family Medical History / Comment(s): AT AGEG 66 FROM CHF Mother Family Medical History: COPD Additional Family Medical History / Comment(s): AT AGE FROM ANEURYSM Sister(s) Family Medical History: Cancer General Exam Limitations: no limitations General appearance: alert, in no apparent distress Head exam: Present: atraumatic, normocephalic Eye exam: Present: normal appearance. Absent: scleral icterus, conjunctival injection ENT exam: Present: mucous membranes dry Neck exam: Present: normal inspection, full ROM. Absent: tenderness Respiratory exam: Present: normal lung sounds bilaterally, chest wall tenderness. Absent: respiratory distress, wheezes, rales, rhonchi, stridor Cardiovascular Exam: Present: regular rate, normal rhythm, normal heart sounds. Absent: systolic murmur, diastolic murmur, rubs, gallop GI/Abdominal exam: Present: soft. Absent: distended, tenderness, guarding, rebound, rigid Extremities exam: Present: normal inspection, normal capillary refill. Absent: pedal edema, calf tenderness Back exam: Present: normal inspection. Absent: CVA tenderness (R), CVA tenderness (L), vertebral tenderness Neurological exam: Present: alert. Absent: motor sensory deficit Skin exam: Present: warm, dry, intact, normal color. Absent: rash Course Vital Signs 07/21/21 07/22/21 07/22/21 20:08 01:59 03:51 Temperature 97.7 F 98.4 F Pulse Rate 59 L 54 L Respiratory 18 20 20 Rate Blood Pressure 124/65 107/63 O2 Sat by Pulse 95 96 Oximetry 07/22/21 07/22/21 04:16 07:00 Temperature 98.0 F Pulse Rate 50 L 50 L Respiratory 16 16 Rate Blood Pressure 111/72 119/88 O2 Sat by Pulse 96 95 Oximetry EKG Findings - EKG Comments: EKG Findings:: There is a dual paced rhythm prolonged AV conduction, rate 50 bpm - EKG Results: EKG: [facility] Medical Decision Making - Lab Data Result diagrams: 07/21/21 23:19 07/21/21 23:19 Lab Results 07/21/21 07/21/21 07/21/21 Range/Units 23:19 23:19 23:19 WBC 5.5 (3.8-10.6) k/uL RBC 3.97 L (4.30-5.90) m/uL Hgb 12.6 L (13.0-17.5) gm/dL Hct 39.4 (39.0-53.0) % MCV 99.0 (80.0-100.0) fL MCH 31.8 (25.0-35.0) pg MCHC 32.1 (31.0-37.0) g/dL RDW 15.2 (11.5-15.5) % Plt Count 107 L (150-450) k/uL MPV 8.1 Neutrophils % 79 % Lymphocytes % 14 % Monocytes % 5 % Eosinophils % 0 % Basophils % 0 % Neutrophils # 4.4 (1.3-7.7) k/uL Lymphocytes # 0.8 L (1.0-4.8) k/uL Monocytes # 0.3 (0-1.0) k/uL Eosinophils # 0.0 (0-0.7) k/uL Basophils # 0.0 (0-0.2) k/uL Macrocytosis Slight Sodium 141 (137-145) mmol/L Potassium 4.5 (3.5-5.1) mmol/L Chloride 109 H (98-107) mmol/L Carbon Dioxide 19 L (22-30) mmol/L Anion Gap 13 mmol/L BUN 56 H (9-20) mg/dL Creatinine 2.27 H (0.66-1.25) mg/dL Est GFR (CKD-EPI)AfAm 29 (>60 ml/min/1.73 sqM) Est GFR (CKD-EPI)NonAf 25 (>60 ml/min/1.73 sqM) Glucose 110 H (74-99) mg/dL Calcium 8.6 (8.4-10.2) mg/dL Magnesium 2.4 H (1.6-2.3) mg/dL Total Bilirubin 1.1 (0.2-1.3) mg/dL AST 99 H (17-59) U/L ALT 68 H (4-49) U/L Alkaline Phosphatase 100 (38-126) U/L Troponin I 0.054 H* (0.000-0.034) ng/mL Total Protein 6.8 (6.3-8.2) g/dL Albumin 3.8 (3.5-5.0) g/dL Disposition Clinical Impression: CHRISTIANO (acute kidney injury), Fall Disposition: ADMITTED IP TO THIS HOSP Condition: Fair
[2021-07-21 23:52] LABS: Basophils % (A) 0 %; Eosinophils % (A) 0 %; HCT 39.4 % (39.0-53.0); HGB 12.6 gm/dL (13.0-17.5); Lymphocytes # (A) 0.8 k/uL (1.0-4.8); Lymphocytes % (A) 14 %; MCH 31.8 pg (25.0-35.0); MCHC 32.1 g/dL (31.0-37.0); Macrocytosis Slight; Mean Platelet Volume 8.1; Monocytes # (A) 0.3 k/uL (0-1.0); Monocytes % (A) 5 %; Neutrophils # (A) 4.4 k/uL (1.3-7.7); Neutrophils % (A) 79 %; Platelet Count 107 k/uL (150-450); RBC 3.97 m/uL (4.30-5.90); RDW 15.2 % (11.5-15.5); WBC 5.5 k/uL (3.8-10.6)
[2021-07-22 00:04] LABS: Albumin 3.8 g/dL (3.5-5.0); Calcium 8.6 mg/dL (8.4-10.2); Magnesium 2.4 mg/dL (1.6-2.3); Potassium 4.5 mmol/L (3.5-5.1); Total Bilirubin 1.1 mg/dL (0.2-1.3); Total Protein 6.8 g/dL (6.3-8.2)
[2021-07-22] MEDS ORDERED: Acetaminophen-Codeine 300-30mg TAB PO STA (00:42)
[2021-07-22] MEDS ORDERED: SODIUM CHLORIDE 0.9% 500 ML 500 ML IV STA (01:56)
[2021-07-22] MEDS ORDERED: NALOXONE 0.4 MG/ML 1 ML VIAL IV PRN (01:57)
[2021-07-22] MEDS ORDERED: HEPARIN SODIUM,PORCINE/PF 5,000 UNIT/0.5 ML SYRINGE SQ SCH (09:00)
[2021-07-22] MEDS: SODIUM CHLORIDE 0.9% 1,000 ML IV SCH ×2 (13:42→21:31)
[2021-07-22] MEDS: ACETAMINOPHEN TAB 325 MG TAB PO PRN (13:49)
[2021-07-22] MEDS ORDERED: ALBUTEROL NEBULIZED 2.5 MG/3 ML INHALATION PRN ×2 (15:31→15:49)
[2021-07-22] MEDS: ALBUTEROL HFA INHALER INHALATION PRN ×2 (15:54→20:19)
--- NOTE | 2021-07-22 16:38 | P.CNPUL ---
History of Present Illness Consult date: 07/22/21 Reason for consult: dyspnea, cough Chief complaint: Generalized weakness and fall associated weakness History of present illness: is a 89-year-old male came into the hospital with generalized weakness and fall related to weakness, patient sees Dr. Yadav for primary care activities, cagle denies any night sweats fever or chills denies any chest pain or radiation of pain, no fever no bowel or bladder related problem, patient does have cough with sputum production his labs were significant for a hemoglobin of 12.6, platelet count of 10 7000, BUN/creatinine 56/2.27, glucose is 210, troponin 0.055 0.0 6 AM 0.047, oxygen saturation is 90% to 95% room air improved to, "test came back positive, chest x-ray and rib x-ray stable pacemaker and wires no infiltrate or heart failure identified no pneumothorax, currently patient is treated with bronchodilators continuation of home medications including amiodarone and requests primary History is significant for coronary artery disease, COPD, GERD, deafness, dyslipidemia, degenerative joint disease osteoarthritis history of pneumonia and sleep apnea Past surgical history significant for a bypass surgery, cardiac cath and stent placement and hernia repair orthopedic repair history of pacemaker insertion, stents no history of smoking through abuse and substance use Review of Systems All systems: negative Past Medical History Past Medical History: Coronary Artery Disease (CAD), Cancer, COPD, GERD/Reflux, Hearing Disorder / Deafness, Hyperlipidemia, Osteoarthritis (OA), Pneumonia, Prostate Disorder, Renal Disease, Sleep Apnea/CPAP/BIPAP, Thyroid Disorder Additional Past Medical History / Comment(s): GOUT; not currently using CPAP, see Dr Sanchez H&P, edema left lower leg, bruises easily, hx skin cancer Last Myocardial Infarction Date:: 2001 History of Any Multi-Drug Resistant Organisms: None Reported Past Surgical History: AICD, Coronary Bypass/CABG, Heart Catheterization With Stent, Hernia Repair, Orthopedic Surgery, Pacemaker Additional Past Surgical History / Comment(s): 4 Vessel CABG 2002. 2 STENTS 2001. HAS 2 PINS IN RT ACHILLES. parathyroid surgery, AICD/PACEMAKER, [facility]. 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, recent biopsy left ear, maximus cataracts Past Anesthesia/Blood Transfusion Reactions: No Reported Reaction Date of Last Stent Placement:: UNK Type of Cardiac Device: Permanent Pacemaker, AICD Device Placement Date:: unknown Past Psychological History: No Psychological Hx Reported Past Alcohol Use History: None Reported Past Drug Use History: None Reported - Past Family History Father Family Medical History: Congestive Heart Failure (CHF), Diabetes Mellitus Additional Family Medical History / Comment(s): AT AGEG 66 FROM CHF Mother Family Medical History: COPD Additional Family Medical History / Comment(s): AT AGE FROM ANEURYSM Sister(s) Family Medical History: Cancer Medications and Allergies Home Medications Medication Instructions Recorded Confirmed Type Allopurinol [Zyloprim] 300 mg PO DAILY 07/22/21 07/22/21 History Amiodarone [Cordarone] 200 mg PO DAILY 07/22/21 07/22/21 History Apixaban [Eliquis] 2.5 mg PO BID 07/22/21 07/22/21 History Atorvastatin [Lipitor] 20 mg PO HS 07/22/21 07/22/21 History Cholecalciferol [Vitamin D3 (25 25 mcg PO DAILY 07/22/21 07/22/21 History Mcg = 1000 Iu)] Empagliflozin [Jardiance] 10 mg PO DAILY 07/22/21 07/22/21 History Finasteride [Proscar] 5 mg PO DAILY 07/22/21 07/22/21 History Furosemide [Lasix] 20 mg PO DAILY 07/22/21 07/22/21 History Ipratropium [place] [Atrovent Hfa] 2 puff INHALATION RT-DAILY 07/22/21 07/22/21 History Loratadine [Claritin] 10 mg PO DAILY 07/22/21 07/22/21 History Magnesium Oxide [Mag-Ox] 400 mg PO DAILY 07/22/21 07/22/21 History Metoprolol Succinate [Toprol XL] 25 mg PO DAILY 07/22/21 07/22/21 History Midodrine [ProAmatine] 5 mg PO TID 07/22/21 07/22/21 History Montelukast [Singulair] 10 mg PO DAILY 07/22/21 07/22/21 History Olopatadine HCl [Pataday] 1 drop BOTH EYES DAILY 07/22/21 07/22/21 History Omeprazole [PriLOSEC] 20 mg PO AC-BRKFST 07/22/21 07/22/21 History Tamsulosin [Flomax] 0.4 mg PO BID 07/22/21 07/22/21 History Allergies Allergy/AdvReac Type Severity Reaction Status Date / Time smoke Allergy Dyspnea Uncoded 07/22/21 13:49 Physical Exam Vitals: Vital Signs Temp Pulse Resp BP Pulse Ox 07/22/21 13:45 98.1 F 54 L 20 123/93 90 L 07/22/21 11:31 98.3 F 54 L 18 112/65 96 07/22/21 07:00 98.0 F 50 L 16 119/88 95 07/22/21 04:16 50 L 16 111/72 96 07/22/21 03:51 20 07/22/21 01:59 98.4 F 54 L 20 107/63 96 07/21/21 20:08 97.7 F 59 L 18 124/65 95 Intake and Output 07/22/21 07/22/21 07/22/21 06:59 14:59 22:59 Other: # Voids 1 # Bowel Movements 1 - Constitutional General appearance: average body habitus, cooperative - EENT Eyes: PERRLA Ears: bilateral: normal - Neck Carotids: bilateral: upstroke normal Thyroid: bilateral: normal size - Respiratory Respiratory: bilateral: CTA - Cardiovascular Rhythm: regular Heart sounds: normal: S1, S2 - Gastrointestinal General gastrointestinal: soft - Neurologic Neurologic: CNII-XII intact - Musculoskeletal Musculoskeletal: gait normal, generalized weakness, strength equal bilaterally - Psychiatric Psychiatric: A&O x's 3, appropriate affect, intact judgment & insight Results - Laboratory Findings CBC and BMP: 07/21/21 23:19 07/21/21 23:19 Abnormal lab findings: Abnormal Labs 07/21/21 07/21/21 07/21/21 23:19 23:19 23:19 RBC 3.97 L Hgb 12.6 L Plt Count 107 L Lymphocytes # 0.8 L Chloride 109 H Carbon Dioxide 19 L BUN 56 H Creatinine 2.27 H Glucose 110 H Magnesium 2.4 H AST 99 H ALT 68 H Troponin I 0.054 H* Coronavirus (PCR) 07/22/21 07/22/21 07/22/21 02:13 05:05 07:21 RBC Hgb Plt Count Lymphocytes # Chloride Carbon Dioxide BUN Creatinine Glucose Magnesium AST ALT Troponin I 0.055 H* 0.063 H* 0.047 H* Coronavirus (PCR) 07/22/21 07:32 RBC Hgb Plt Count Lymphocytes # Chloride Carbon Dioxide BUN Creatinine Glucose Magnesium AST ALT Troponin I Coronavirus (PCR) Detected A - Diagnostic Findings Chest x-ray: report reviewed, image reviewed Assessment and Plan Assessment: Generalized weakness Fall related to weakness COVID-19 infection GERD BPH Dyslipidemia Coronary artery disease with history of CABG and stent placement Plan: Continue deep breathing sense incentive spirometry Repeat chest x-ray tomorrow We will initiate trial of Decadron PT OT evaluation Time with Patient: Greater than 30
[2021-07-22] MEDS: dexAMETHasone 2 MG TAB PO SCH (18:57)
[2021-07-22] MEDS ORDERED: LORATADINE 10 MG TAB PO PRN (21:00)
[2021-07-22] MEDS: KETOTIFEN 0.025% OPHTH DROPS 5 ML BTL BOTH EYES SCH (21:28)
[2021-07-22] MEDS: CHOLECALCIFEROL 25 MCG (1000 IU) TABLET PO SCH (21:29)
[2021-07-22] MEDS: TAMSULOSIN 0.4 MG CAP.ER.24H PO SCH (21:29)
[2021-07-22] MEDS: MIDODRINE 5 MG TAB PO SCH (21:29)
[2021-07-22] MEDS: MONTELUKAST 10 MG TAB PO SCH (21:30)
[2021-07-22] MEDS: MAGNESIUM OXIDE 400 MG TAB PO SCH (21:30)
[2021-07-22] MEDS: APIXABAN 2.5 MG TABLET PO SCH (21:30)
[2021-07-22] MEDS: ATORVASTATIN 20 MG TAB PO SCH (21:30)
[2021-07-22] MEDS: METOPROLOL SUCCINATE (ER) 25 MG TAB.ER.24H PO SCH (21:35)
[2021-07-22] MEDS: AMIODARONE 200 MG TAB PO SCH (21:36)
--- NOTE | 2021-07-23 00:35 | P.CONS ---
History of Present Illness - Reason for Consult Consult date: 07/22/21 covid 19 Requesting physician: Dg Yadav - Chief Complaint weakness and fall x 1 day - History of Present Illness History of present illness : Patient is 89-year male presenting to the ER last night by EMS for evaluation of generalized weakness in this patient apparently tried to get up and walk in his residence however the patient felt weak and did have a fall landing on the right side of his chest and has been complaining of pain most of the right lateral chest wall no free dull aching to sharp 4-5 out of 10 no radiation patient denies any fever or chills denies any URI symptoms denies any shortness of breath he did have minimal cough but no sputum production no nausea vomiting abdominal pain no diarrhea on presentation to the ER the patient was afebrile patient was not hypoxic satting 95 to 96% on room air patient did have a normal white count with lymphopenia did have elevated BUN/creatinine with a creatinine clearance of less than 30 patient also have mild bradycardia arrhythmia with a heart rate in the 49-50 patient did have a chest x-ray was negative for any pneumonia patient did have positive Covid test that has prompted this infectious disease consultation patient main symptom remains to be generalized weakness no energy he denies any body aches except pain to the right side of the chest from the fall did have a minimal cough which is mostly dry without any purulent sputum no vomiting no abdominal pain or diarrhea Review of system: CONSTITUTIONAL: Positive for weakness denies fever. EYES: No complaint. ENT: No complaint. RESPIRATORY: As per history of present illness. CARDIOVASCULAR: No complaint. GENITOURINARY: No complaint. GASTROINTESTINAL: No complaint. MUSCULOSKELETAL: No complaint. INTEGUMENTARY: No complaint. PSYCHOLOGIC: No complaint. ENDOCRINE: No complaint. NEUROLOGIC: No complaint. Past medical history : Reviewed, documented below Past surgical history : Reviewed, documented below Social history: Reviewed, documented below Medications: Reviewed, as documented below EXAMINATION: Vital sigans= Reviewed and documented below GENERAL DESCRIPTION: Elderly male lying in bed, no distress. No tachypnea or accessory muscle of respiration use. HEENT: Shows Pallor , no scleral icterus. Oral mucous membrane is dry. NECK: Trachea central, no thyromegaly. LUNGS: Unlabored breathing. Decreased breath sound in the bases. No wheeze or crackle. HEART: S1, S2, regular rate and rhythm. ABDOMEN: Soft, no tenderness , guarding or rigidity EXTREMITIES: No edema of feet. SKIN: No rash, no masses palpable. NEUROLOGICAL: The patient is awake, alert, oriented x3, mood and affect normal. LABS AND RADIOLOGY: Reviewed results see below Assessment : Patient presented to hospital with generalized weakness in this patient who did have a fall with the pain to the right side of the rib cage in this patient did not have any fever or hypoxemia on presentation to the hospital and a chest x-ray has been negative for any acute infiltrate with a positive Covid test more likely mild illness and will not qualify for remdesivir per [facility] policy in view of O2 sats more than 94%, and the patient did not have any active infiltrate on chest x-ray Plan: 1-we will check his inflammatory markers and monitor his O2 sats closely 2-patient to continue with Eliquis zinc and ascorbic acid 3-droplet isolation and respiratory support We will follow on clinical condition and cultures to further adjust medication if needed Thank you for this consultation we will follow the patient along with you Past Medical History Past Medical History: Coronary Artery Disease (CAD), Cancer, COPD, GERD/Reflux, Hearing Disorder / Deafness, Hyperlipidemia, Osteoarthritis (OA), Pneumonia, Prostate Disorder, Renal Disease, Sleep Apnea/CPAP/BIPAP, Thyroid Disorder Additional Past Medical History / Comment(s): GOUT; not currently using CPAP, see Dr Sanchez H&P, edema left lower leg, bruises easily, hx skin cancer Last Myocardial Infarction Date:: 2001 History of Any Multi-Drug Resistant Organisms: None Reported Past Surgical History: AICD, Coronary Bypass/CABG, Heart Catheterization With Stent, Hernia Repair, Orthopedic Surgery, Pacemaker Additional Past Surgical History / Comment(s): 4 Vessel CABG 2002. 2 STENTS 2001. HAS 2 PINS IN RT ACHILLES. parathyroid surgery, AICD/PACEMAKER, [facility]. 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, recent biopsy left ear, maximus cataracts Past Anesthesia/Blood Transfusion Reactions: No Reported Reaction Date of Last Stent Placement:: UNK Type of Cardiac Device: Permanent Pacemaker, AICD Device Placement Date:: unknown Past Psychological History: No Psychological Hx Reported Past Alcohol Use History: None Reported Past Drug Use History: None Reported - Past Family History Father Family Medical History: Congestive Heart Failure (CHF), Diabetes Mellitus Additional Family Medical History / Comment(s): AT AGEG 66 FROM CHF Mother Family Medical History: COPD Additional Family Medical History / Comment(s): AT AGE FROM ANEURYSM Sister(s) Family Medical History: Cancer Medications and Allergies Home Medications Medication Instructions Recorded Confirmed Type Allopurinol [Zyloprim] 300 mg PO DAILY 07/22/21 07/22/21 History Amiodarone [Cordarone] 200 mg PO DAILY 07/22/21 07/22/21 History Apixaban [Eliquis] 2.5 mg PO BID 07/22/21 07/22/21 History Atorvastatin [Lipitor] 20 mg PO HS 07/22/21 07/22/21 History Cholecalciferol [Vitamin D3 (25 25 mcg PO DAILY 07/22/21 07/22/21 History Mcg = 1000 Iu)] Empagliflozin [Jardiance] 10 mg PO DAILY 07/22/21 07/22/21 History Finasteride [Proscar] 5 mg PO DAILY 07/22/21 07/22/21 History Furosemide [Lasix] 20 mg PO DAILY 07/22/21 07/22/21 History Ipratropium [place] [Atrovent Hfa] 2 puff INHALATION RT-DAILY 07/22/21 07/22/21 History Loratadine [Claritin] 10 mg PO DAILY 07/22/21 07/22/21 History Magnesium Oxide [Mag-Ox] 400 mg PO DAILY 07/22/21 07/22/21 History Metoprolol Succinate [Toprol XL] 25 mg PO DAILY 07/22/21 07/22/21 History Midodrine [ProAmatine] 5 mg PO TID 07/22/21 07/22/21 History Montelukast [Singulair] 10 mg PO DAILY 07/22/21 07/22/21 History Olopatadine HCl [Pataday] 1 drop BOTH EYES DAILY 07/22/21 07/22/21 History Omeprazole [PriLOSEC] 20 mg PO AC-BRKFST 07/22/21 07/22/21 History Tamsulosin [Flomax] 0.4 mg PO BID 07/22/21 07/22/21 History Allergies Allergy/AdvReac Type Severity Reaction Status Date / Time smoke Allergy Dyspnea Uncoded 07/22/21 13:49 Physical Exam Vitals: Vital Signs Temp Pulse Resp BP Pulse Ox 07/22/21 11:31 98.3 F 54 L 18 112/65 96 07/22/21 07:00 98.0 F 50 L 16 119/88 95 07/22/21 04:16 50 L 16 111/72 96 07/22/21 03:51 20 07/22/21 01:59 98.4 F 54 L 20 107/63 96 07/21/21 20:08 97.7 F 59 L 18 124/65 95 Intake and Output 07/21/21 07/22/21 07/22/21 22:59 06:59 14:59 Other: Weight 79.379 kg Results CBC & Chem 7: 07/21/21 23:19 07/21/21 23:19 Labs: Abnormal Lab Results - Last 24 Hours (Table) 07/21/21 07/21/21 07/21/21 Range/Units 23:19 23:19 23:19 RBC 3.97 L (4.30-5.90) m/uL Hgb 12.6 L (13.0-17.5) gm/dL Plt Count 107 L (150-450) k/uL Lymphocytes # 0.8 L (1.0-4.8) k/uL Chloride 109 H (98-107) mmol/L Carbon Dioxide 19 L (22-30) mmol/L BUN 56 H (9-20) mg/dL Creatinine 2.27 H (0.66-1.25) mg/dL Glucose 110 H (74-99) mg/dL Magnesium 2.4 H (1.6-2.3) mg/dL AST 99 H (17-59) U/L ALT 68 H (4-49) U/L Troponin I 0.054 H* (0.000-0.034) ng/mL Coronavirus (PCR) (Not Detectd) 07/22/21 07/22/21 07/22/21 Range/Units 02:13 05:05 07:21 RBC (4.30-5.90) m/uL Hgb (13.0-17.5) gm/dL Plt Count (150-450) k/uL Lymphocytes # (1.0-4.8) k/uL Chloride (98-107) mmol/L Carbon Dioxide (22-30) mmol/L BUN (9-20) mg/dL Creatinine (0.66-1.25) mg/dL Glucose (74-99) mg/dL Magnesium (1.6-2.3) mg/dL AST (17-59) U/L ALT (4-49) U/L Troponin I 0.055 H* 0.063 H* 0.047 H* (0.000-0.034) ng/mL Coronavirus (PCR) (Not Detectd) 07/22/21 Range/Units 07:32 RBC (4.30-5.90) m/uL Hgb (13.0-17.5) gm/dL Plt Count (150-450) k/uL Lymphocytes # (1.0-4.8) k/uL Chloride (98-107) mmol/L Carbon Dioxide (22-30) mmol/L BUN (9-20) mg/dL Creatinine (0.66-1.25) mg/dL Glucose (74-99) mg/dL Magnesium (1.6-2.3) mg/dL AST (17-59) U/L ALT (4-49) U/L Troponin I (0.000-0.034) ng/mL Coronavirus (PCR) Detected A (Not Detectd)
[2021-07-23 05:54] LABS: Glucose,Whole Blood 155 mg/dL (75-99)
[2021-07-23] MEDS: PANTOPRAZOLE 40 MG TABLET PO SCH (06:25)
[2021-07-23] MEDS: MIDODRINE 5 MG TAB PO SCH ×3 (06:25→16:46)
[2021-07-23] MEDS: SODIUM CHLORIDE 0.9% 1,000 ML IV SCH ×2 (06:25→17:04)
[2021-07-23 07:36] LABS: Basophils % (A) 0 %; Eosinophils % (A) 0 %; HCT 36.1 % (39.0-53.0); HGB 11.9 gm/dL (13.0-17.5); Lymphocytes # (A) 0.4 k/uL (1.0-4.8); Lymphocytes % (A) 10 %; MCH 32.2 pg (25.0-35.0); MCHC 32.9 g/dL (31.0-37.0); MCV 97.8 fL (80.0-100.0); Macrocytosis Slight; Mean Platelet Volume 8.8; Monocytes # (A) 0.1 k/uL (0-1.0); Monocytes % (A) 2 %; Neutrophils # (A) 3.5 k/uL (1.3-7.7); Neutrophils % (A) 87 %; RDW 15.8 % (11.5-15.5); WBC 4.1 k/uL (3.8-10.6)
[2021-07-23 07:38] LABS: Albumin 3.2 g/dL (3.5-5.0); Calcium 8.2 mg/dL (8.4-10.2); Potassium 5.4 mmol/L (3.5-5.1); Total Protein 5.9 g/dL (6.3-8.2)
--- NOTE | 2021-07-23 08:10 | HP ---
HISTORY AND PHYSICAL [id number]-old white male admitted with COVID pneumonia, severe dehydration, prerenal renal insufficiency, oxygen saturating 90 on room air, started on 2 L of oxygen, treated for COVID pneumonia and prerenal renal azotemia. Unsure where he caught COVID. His second shot was over 6 months ago. He has elevated troponin secondary to possible renal insufficiency or COVID. He has cough and sputum production. Hemoglobin 12.6, platelet count glucose 210. Chest x-ray is okay. No pneumothorax. He has history of coronary artery disease, COPD, GERD, dyslipidemia, DJD, osteoarthritis, sleep apnea. Surgeries are cardiac catheterization, bypass surgery, stent, hernia repair, orthopedic surgery, pacemaker. Fourteen-point review of systems otherwise negative. FAMILY HISTORY: Mother with COPD. Sister with cancer. Dad with CHF and diabetes mellitus. HOME MEDICINES: See list. ALLERGIES: NEGATIVE. PHYSICAL EXAMINATION: Temperature 98, pulse 50s to 60s, respiratory rate 16-20, blood pressure 110 to 120s over 60s to 80s, O2 95-96 on room air. HEENT normocephalic, atraumatic. Pupils equal, round, reactive. Cardiovascular S1, S2. Lungs with rales, decreased breath sounds x4. Hematology negative Homans. Psych fair mood and affect. ASSESSMENT: 1. COVID pneumonia. 2. Generalized weakness. 3. Prerenal renal azotemia. 4. Fall secondary to weakness and COVID-19 infection. 5. Gastroesophageal reflux disease. 6. Benign prostatic hypertrophy. 7. Dyslipidemia. 8. Chronic obstructive pulmonary disease. 9. Diastolic heart failure. Chest x-ray. Decadron. PT/OT. Possibly remdesivir if he gets worse. MMODL / IJN: [id number] /
[2021-07-23] MEDS: FINASTERIDE 5 MG TAB PO SCH (08:18)
[2021-07-23] MEDS: APIXABAN 2.5 MG TABLET PO SCH ×2 (08:18→20:27)
[2021-07-23] MEDS: ASCORBIC ACID 500 MG TAB PO SCH (08:18)
[2021-07-23] MEDS: TAMSULOSIN 0.4 MG CAP.ER.24H PO SCH (08:18)
[2021-07-23] MEDS: ZINC SULFATE 220 MG CAP PO SCH (08:18)
[2021-07-23] MEDS: dexAMETHasone 2 MG TAB PO SCH (08:18)
[2021-07-23] MEDS: allopurinoL 300 MG TAB PO SCH (08:18)
[2021-07-23] MEDS: KETOTIFEN 0.025% OPHTH DROPS 5 ML BTL BOTH EYES SCH ×2 (08:22→20:38)
[2021-07-23] MEDS: ALBUTEROL HFA INHALER INHALATION PRN ×3 (09:01→19:20)
[2021-07-23 09:40] LABS: C Reactive Protein 5.5 mg/dL (<1.0)
[2021-07-23 09:52] LABS: Anisocytosis (M) Present; Platelet Count 90 k/uL (150-450); Poikilocytosis (M) Present
[2021-07-23 12:06] LABS: Glucose,Whole Blood 309 mg/dL (75-99)
--- NOTE | 2021-07-23 12:57 | XR ---
EXAMINATION TYPE: XR chest 1V portable DATE OF EXAM: 07/23/2021 COMPARISON: Chest x-ray 07/21/2021 HISTORY: Covid 19 infection TECHNIQUE: Single frontal view of the chest is obtained. FINDINGS: Patient is post median sternotomy. There is a generator in the left pectoral region, leads in right atrium and ventricle. Atheromatous calcifications are noted in the aorta and splenic artery. There is no focal air space opacity, pleural effusion, or pneumothorax seen. Suspect some prominence of the interstitium. The cardiac silhouette size is stable, enlarged. Interstitium and central vas cularity are prominent. The osseous structures are stable. IMPRESSION: Stable cardiomegaly. Prominence of the central vascularity may be due to technique, rosita elate to exclude early interstitial edema, follow-up PA and lateral chest x-ray may be of benefit
[2021-07-23] MEDS: METOPROLOL SUCCINATE (ER) 25 MG TAB.ER.24H PO SCH (20:27)
[2021-07-23] MEDS: MONTELUKAST 10 MG TAB PO SCH (20:27)
[2021-07-23] MEDS: MAGNESIUM OXIDE 400 MG TAB PO SCH (20:27)
[2021-07-23] MEDS: AMIODARONE 200 MG TAB PO SCH (20:27)
[2021-07-23] MEDS: CHOLECALCIFEROL 25 MCG (1000 IU) TABLET PO SCH (20:27)
[2021-07-23] MEDS: ATORVASTATIN 20 MG TAB PO SCH (20:27)
[2021-07-24] MEDS: PANTOPRAZOLE 40 MG TABLET PO SCH (06:23)
[2021-07-24] MEDS: ALBUTEROL HFA INHALER INHALATION PRN ×3 (08:07→15:36)
[2021-07-24] MEDS: APIXABAN 2.5 MG TABLET PO SCH ×2 (08:29→20:36)
[2021-07-24] MEDS: allopurinoL 300 MG TAB PO SCH (08:29)
[2021-07-24] MEDS: dexAMETHasone 2 MG TAB PO SCH (08:29)
[2021-07-24] MEDS: FINASTERIDE 5 MG TAB PO SCH (08:29)
[2021-07-24] MEDS: MIDODRINE 5 MG TAB PO SCH ×4 (08:29→17:03)
[2021-07-24] MEDS: ASCORBIC ACID 500 MG TAB PO SCH (08:29)
[2021-07-24] MEDS: FUROSEMIDE 10 MG TAB PO SCH (08:29)
[2021-07-24] MEDS: ZINC SULFATE 220 MG CAP PO SCH (08:29)
[2021-07-24] MEDS: TAMSULOSIN 0.4 MG CAP.ER.24H PO SCH (08:30)
[2021-07-24] MEDS: SODIUM CHLORIDE 0.9% 1,000 ML IV SCH ×2 (08:46→20:39)
[2021-07-24] MEDS: KETOTIFEN 0.025% OPHTH DROPS 5 ML BTL BOTH EYES SCH ×2 (08:53→20:38)
--- NOTE | 2021-07-24 09:28 | XR ---
EXAMINATION TYPE: XR chest 1V portable DATE OF EXAM: 07/24/2021 COMPARISON: 07/23/2021 HISTORY: Cough TECHNIQUE: Single frontal view of the chest is obtained. FINDINGS: Subsegmental bilateral infiltrate with interstitial pattern. Cardiomegaly, cardiac device and postsurgical changes. No pneumothorax. Arthropathy of the shoulders. Diffuse osteopenia. IMPRESSION: Cardiomegaly with stable interstitial changes may been the basis of residual pneumonitis or mild venous congestion. Perihilar subsegmental infiltrate noted.
--- NOTE | 2021-07-24 09:39 | PN ---
PROGRESS NOTE DATE OF SERVICE: 07/23/2021 REASON FOR FOLLOW UP: COVID-19 infection. INTERVAL HISTORY: The patient is afebrile. The patient is currently saturating about 94% on room air. The patient denies having any chest pain or shortness of breath. Occasional cough. No abdominal pain or diarrhea. PHYSICAL EXAMINATION: Blood pressure 113/79, pulse of 51, temperature 97.9. He is 96% on room air. General description is an elderly male lying in bed in no distress. Respiratory system: Unlabored breathing, decreased intensity of breath sounds. No wheeze. Heart S1, S2. Regular rate and rhythm. Abdomen soft, no tenderness. LABS: Hemoglobin is 11.9, white count 4.1, creatinine is 2.25. CRP is 5.5. Chest x-ray did not show significant or pneumonia. DIAGNOSTIC IMPRESSION AND PLAN: Patient admitted with hospital with shortness of breath, multifactorial, in this patient who did have COVID-19 infection. Patient did have low creatinine clearance and baseline bradyarrhythmia and high risk of side effects from the remdesivir, plus the patient had significant hypoxia, saturating 94% on room air. We will continue to monitor the patient closely off remdesivir, continue with Eliquis, dexamethasone, zinc and ascorbic acid, and continue with supportive care. MMODL / IJN: [id number] /
--- NOTE | 2021-07-24 10:33 | P.PN ---
Subjective Progress Note Date: 07/23/21 (Late entry note) Principal diagnosis: Generalized weakness Fall related to weakness COVID-19 infection GERD BPH Dyslipidemia Coronary artery disease with history of CABG and stent placement 07/23/2021, patient seen eval examined in follow-up, respiratory status not much change, chest x-ray reviewed possible interstitial pattern cannot be excluded, patient remains on room air as saturation 94% with stable hemodynamics, blood pressure is the 110/60, patient remains on bronchodilator continuation of home medications including liquids along with daily 6 mg of Decadron, patient has been restarted on her midodrine Patient is a 89-year-old male came into the hospital with generalized weakness and fall related to weakness, patient sees Dr. Yadav for primary care act ivities, cagle denies any night sweats fever or chills denies any chest pain or radiation of pain, no fever no bowel or bladder related problem, patient does have cough with sputum production his labs were significant for a hemoglobin of 12.6, platelet count of 10 7000, BUN/creatinine 56/2.27, glucose is 210, troponin 0.055 0.0 6 AM 0.047, oxygen saturation is 90% to 95% room air improved to, "test came back positive, chest x-ray and rib x-ray stable pacemaker and wires no infiltrate or heart failure identified no pneumothorax, currently patient is treated with bronchodilators continuation of home medications including amiodarone and requests primary History is significant for coronary artery disease, COPD, GERD, deafness, dyslipidemia, degenerative joint disease osteoarthritis history of pneumonia and sleep apnea Past surgical history significant for a bypass surgery, cardiac cath and stent placement and hernia repair orthopedic repair history of pacemaker insertion, stents no history of smoking through abuse and substance use Objective - Vital Signs Vital signs: Vital Signs Temp 96.6 F L 07/24/21 08:00 Pulse 50 L 07/24/21 08:00 Resp 18 07/24/21 08:00 BP 130/60 07/24/21 08:00 Pulse Ox 95 07/24/21 08:00 Intake & Output 07/23/21 07/24/21 07/24/21 18:59 06:59 18:59 Intake Total 118 240 Output Total 300 Balance -300 118 240 Intake: Oral 118 240 Output: Urine 300 Other: Voiding Method Urinal Urinal # Voids 1 1 # Bowel Movements 1 - Exam - Constitutional General appearance: average body habitus, cooperative - EENT Eyes: PERRLA Ears: bilateral: normal - Neck Carotids: bilateral: upstroke normal Thyroid: bilateral: normal size - Respiratory Respiratory: bilateral: CTA - Cardiovascular Rhythm: regular Heart sounds: normal: S1, S2 - Gastrointestinal General gastrointestinal: soft - Neurologic Neurologic: CNII-XII intact - Musculoskeletal Musculoskeletal: gait normal, generalized weakness, strength equal bilaterally - Psychiatric Psychiatric: A&O x's 3, appropriate affect, intact judgment & insight - Labs CBC & Chem 7: 07/23/21 07:07 07/23/21 07:07 Labs: Abnormal Lab Results - Last 24 Hours (Table) 07/23/21 07/23/21 07/23/21 Range/Units 07:07 07:07 12:03 POC Glucose (mg/dL) 309 H (75-99) mg/dL Ferritin 325.0 H (22.0-322.0) ng/mL Procalcitonin 0.20 H (0.02-0.09) ng/mL Assessment and Plan Assessment: Generalized weakness Fall related to weakness COVID-19 infection GERD BPH Dyslipidemia Coronary artery disease with history of CABG and stent placement Plan: Continue deep breathing sense incentive spirometry Repeat chest x-ray reviewed We will initiate trial of Decadron PT OT evaluation Time with Patient: Greater than 30
--- NOTE | 2021-07-24 10:37 | P.PN ---
Subjective Progress Note Date: 07/24/21 Principal diagnosis: Generalized weakness Fall related to weakness COVID-19 infection GERD BPH Dyslipidemia Coronary artery disease with history of CABG and stent placement 07/24/2021, patient seen eval examined during the rounds overall no significant change in saturation 95% on room air, patient remains on oral steroids Decadron 6 mg daily, tolerating well today's x-ray reviewed some streak-like infiltrate at the bases cannot be excluded or perihilar infiltrate 07/23/2021, patient seen eval examined in follow-up, respiratory status not much change, chest x-ray reviewed possible interstitial pattern cannot be excluded, patient remains on room air as saturation 94% with stable hemodynamics, blood pressure is the 110/60, patient remains on bronchodilator continuation of home medications including liquids along with daily 6 mg of Decadron, patient has been restarted on her midodrine Patient is a 89-year-old male came into the hospital with generalized weakness and fall related to weakness, patient sees Dr. Yadav for primary care activities, cagle denies any night sweats fever or chills denies any chest pain or radiation of pain, no fever no bowel or bladder related problem, patient does have cough with sputum production his labs were significant for a hemoglobin of 12.6, platelet count of 10 7000, BUN/creatinine 56/2.27, glucose is 210, troponin 0.055 0.0 6 AM 0.047, oxygen saturation is 90% to 95% room air improved to, "test came back positive, chest x-ray and rib x-ray stable pacemaker and wires no infiltrate or heart failure identified no pneumothorax, currently patient is treated with bronchodilators continuation of home medications includ ing amiodarone and requests primary History is significant for coronary artery disease, COPD, GERD, deafness, dyslipidemia, degenerative joint disease osteoarthritis history of pneumonia and sleep apnea Past surgical history significant for a bypass surgery, cardiac cath and stent placement and hernia repair orthopedic repair history of pacemaker insertion, stents no history of smoking through abuse and substance use Objective - Vital Signs Vital signs: Vital Signs Temp 96.6 F L 07/24/21 08:00 Pulse 50 L 07/24/21 08:00 Resp 18 07/24/21 08:00 BP 130/60 07/24/21 08:00 Pulse Ox 95 07/24/21 08:00 Intake & Output 07/23/21 07/24/21 07/24/21 18:59 06:59 18:59 Intake Total 118 240 Output Total 300 Balance -300 118 240 Intake: Oral 118 240 Output: Urine 300 Other: Voiding Method Urinal Urinal # Voids 1 1 # Bowel Movements 1 - Exam - Constitutional General appearance: average body habitus, cooperative - EENT Eyes: PERRLA Ears: bilateral: normal - Neck Carotids: bilateral: upstroke normal Thyroid: bilateral: normal size - Respiratory Respiratory: bilateral: CTA - Cardiovascular Rhythm: regular Heart sounds: normal: S1, S2 - Gastrointestinal General gastrointestinal: soft - Neurologic Neurologic: CNII-XII intact - Musculoskeletal Musculoskeletal: gait normal, generalized weakness, strength equal bilaterally - Psychiatric Psychiatric: A&O x's 3, appropriate affect, intact judgment & insight - Labs CBC & Chem 7: 07/23/21 07:07 07/23/21 07:07 Labs: Abnormal Lab Results - Last 24 Hours (Table) 07/23/21 07/23/21 07/23/21 Range/Units 07:07 07:07 12:03 POC Glucose (mg/dL) 309 H (75-99) mg/dL Ferritin 325.0 H (22.0-322.0) ng/mL Procalcitonin 0.20 H (0.02-0.09) ng/mL Assessment and Plan Assessment: Generalized weakness Fall related to weakness COVID-19 infection GERD BPH Dyslipidemia Coronary artery disease with history of CABG and stent placement Plan: Continue deep breathing sense incentive spirometry Repeat chest x-ray reviewed We will initiate trial of Decadron PT OT evaluation Time with Patient: Greater than 30
[2021-07-24] MEDS: MAGNESIUM OXIDE 400 MG TAB PO SCH (20:36)
[2021-07-24] MEDS: METOPROLOL SUCCINATE (ER) 25 MG TAB.ER.24H PO SCH (20:36)
[2021-07-24] MEDS: ATORVASTATIN 20 MG TAB PO SCH (20:36)
[2021-07-24] MEDS: MONTELUKAST 10 MG TAB PO SCH (20:36)
[2021-07-24] MEDS: AMIODARONE 200 MG TAB PO SCH (20:36)
[2021-07-24] MEDS: CHOLECALCIFEROL 25 MCG (1000 IU) TABLET PO SCH (20:37)
--- NOTE | 2021-07-24 21:51 | PN ---
PROGRESS NOTE DATE OF SERVICE: 07/24/2021 REASON FOR FOLLOWUP: COVID-19 infection. INTERVAL HISTORY: The patient is afebrile. The patient is breathing more comfortably. He is currently on room air. The patient denies having any chest pain. No worsening cough. No abdominal pain or diarrhea. PHYSICAL EXAMINATION: Blood pressure 122/64, pulse of 50, temperature 97.5. He is 95% on room air. General description is an elderly male lying in bed in no distress. Respiratory system: Unlabored breathing, decreased intensity of breath sounds. No wheeze. Heart S1, S2. Regular rate and rhythm. Abdomen soft, no tenderness. LABS: No new labs have been obtained today. DIAGNOSTIC IMPRESSION AND PLAN: Patient with acute COVID-19 infection in this patient who seems to have shown overall improvement with the current supportive treatment. Patient is currently on room air. Chest x-ray with no significant worsening. Patient at this time to continue with Eliquis, dexamethasone, zinc and ascorbic acid, respiratory support, and monitor his clinical course closely. MMODL / IJN: [id number] /
[2021-07-25] MEDS: ALBUTEROL HFA INHALER INHALATION PRN ×4 (02:05→19:35)
[2021-07-25] MEDS: MIDODRINE 5 MG TAB PO SCH ×3 (06:35→17:58)
[2021-07-25] MEDS: PANTOPRAZOLE 40 MG TABLET PO SCH (06:35)
[2021-07-25 08:17] LABS: Basophils % (A) 0 %; Eosinophils % (A) 0 %; HCT 38.6 % (39.0-53.0); HGB 11.9 gm/dL (13.0-17.5); Hypochromasia Slight; Lymphocytes # (A) 0.4 k/uL (1.0-4.8); Lymphocytes % (A) 5 %; MCH 30.7 pg (25.0-35.0); MCHC 30.8 g/dL (31.0-37.0); MCV 99.9 fL (80.0-100.0); Macrocytosis Slight; Mean Platelet Volume 8.9; Monocytes # (A) 0.3 k/uL (0-1.0); Monocytes % (A) 4 %; Neutrophils # (A) 7.8 k/uL (1.3-7.7); Neutrophils % (A) 91 %; Platelet Count 103 k/uL (150-450); RBC 3.87 m/uL (4.30-5.90); RDW 15.4 % (11.5-15.5); WBC 8.6 k/uL (3.8-10.6)
[2021-07-25 08:38] LABS: Albumin 3.1 g/dL (3.5-5.0); Calcium 8.5 mg/dL (8.4-10.2); Potassium 5.6 mmol/L (3.5-5.1); Total Bilirubin 0.8 mg/dL (0.2-1.3); Total Protein 5.9 g/dL (6.3-8.2)
[2021-07-25] MEDS: FINASTERIDE 5 MG TAB PO SCH (09:23)
[2021-07-25] MEDS: FUROSEMIDE 10 MG TAB PO SCH (09:23)
[2021-07-25] MEDS: dexAMETHasone 2 MG TAB PO SCH (09:23)
[2021-07-25] MEDS: allopurinoL 300 MG TAB PO SCH (09:23)
[2021-07-25] MEDS: APIXABAN 2.5 MG TABLET PO SCH ×2 (09:23→19:55)
[2021-07-25] MEDS: ZINC SULFATE 220 MG CAP PO SCH (09:23)
[2021-07-25] MEDS: ASCORBIC ACID 500 MG TAB PO SCH (09:24)
[2021-07-25] MEDS: TAMSULOSIN 0.4 MG CAP.ER.24H PO SCH (09:24)
[2021-07-25] MEDS: SODIUM CHLORIDE 0.9% 1,000 ML IV SCH ×2 (09:24→19:51)
[2021-07-25] MEDS: KETOTIFEN 0.025% OPHTH DROPS 5 ML BTL BOTH EYES SCH ×2 (09:24→20:00)
--- NOTE | 2021-07-25 10:32 | XR ---
EXAMINATION TYPE: XR chest 1V portable DATE OF EXAM: 07/25/2021 COMPARISON: Chest x-ray 07/24/2021 HISTORY: Covid 19 infection TECHNIQUE: Single frontal view of the chest is obtained. FINDINGS: Patient is post median sternotomy. Patient is rotated and there are overlying artifacts. T here is a generator in the left pectoral region, leads in right atrium and ventricle. Heart size is l ikely stable. No evident pneumothorax or pleural effusion. Interstitium and central vascularity are p rominent, some patchy densities present in the lung bases, perihilar region on the right. IMPRESSION: Correlate for pneumonia, interstitial and perihilar edema
--- NOTE | 2021-07-25 16:09 | P.PN ---
Subjective Progress Note Date: 07/25/21 Principal diagnosis: Pneumonia Blood stained sputum secondary pneumonia Generalized weakness Fall related to weakness COVID-19 infection GERD BPH Dyslipidemia Coronary artery disease with history of CABG and stent placement 07/25/2021, patient seen eval examined during the rounds labs reviewed medications reviewed, patient has intermittent cough and he is producing clear to yellow sputum mixed with intermittent stye streaks of blood, more short of breath on 2 L oxygen, discussed with infectious disease services will start patient on IV steroids antibiotics send sputum for Gram stain and culture 07/24/2021, patient seen eval examined during the rounds overall no significant change in saturation 95% on room air, patient remains on oral steroids Decadron 6 mg daily, tolerating well today's x-ray reviewed some streak-like infiltrate at the bases cannot be excluded or perihilar infiltrate 07/23/2021, patient seen eval examined in follow-up, respiratory status not much change, chest x-ray reviewed possible interstitial pattern cannot be excluded, patient remains on room air as saturation 94% with stable hemodynamics, blood pressure is the 110/60, patient remains on bronchodilator continuation of home medications including liquids along with daily 6 mg of Decadron, patient has been restarted on her midodrine Patient is a 89-year-old male came into the hospital with generalized weakness and fall related to weakness, patient sees Dr. Yadav for primary care activities, cagle denies any night sweats fever or chills denies any chest pain or radiation of pain, no fever no bowel or bladder related problem, patient does have cough with sputum production his labs were significant for a hemoglobin of 12.6, platelet count of 10 7000, BUN/creatinine 56/2.27, glucose is 210, troponin 0.055 0.0 6 AM 0.047, oxygen saturation is 90% to 95% room air improved to, "test came back positive, chest x-ray and rib x-ray stable pacemaker and wires no infiltrate or heart failure identified no pneumothorax, currently patient is treated with bronchodilators continuation of home medications including amiodarone and requests primary History is significant for coronary artery disease, COPD, GERD, deafness, dyslipidemia, degenerative joint disease osteoarthritis history of pneumonia and sleep apnea Past surgical history significant for a bypass surgery, cardiac cath and stent placement and hernia repair orthopedic repair history of pacemaker insertion, stents no history of smoking through abuse and substance use Objective - Vital Signs Vital signs: Vital Signs Temp 98.0 F 07/25/21 12:00 Pulse 56 L 07/25/21 14:00 Resp 20 07/25/21 12:00 BP 119/53 07/25/21 12:00 Pulse Ox 96 07/25/21 12:00 Intake & Output 07/24/21 07/25/21 07/25/21 18:59 06:59 18:59 Intake Total 780 360 Output Total 200 Balance 780 -200 360 Weight 78.5 kg Intake: IV 300 Sodium Chloride 0.9% 1, 300 000 ml @ 75 mls/hr IV . [id number] DEVYN Rx#:[id number] Oral 480 360 Output: Urine 200 Other: Voiding Method Bedside Commode Bedside Commode Urinal Urinal # Voids 1 2 # Bowel Movements 1 1 - Exam - Exam - Constitutional General appearance: average body habitus, cooperative - EENT Eyes: PERRLA Ears: bilateral: normal - Neck Carotids: bilateral: upstroke normal Thyroid: bilateral: normal size - Respiratory Respiratory: bilateral: CTA - Cardiovascular Rhythm: regular Heart sounds: normal: S1, S2 - Gastrointestinal General gastrointestinal: soft - Neurologic Neurologic: CNII-XII intact - Musculoskeletal Musculoskeletal: gait normal, generalized weakness, strength equal bilaterally - Psychiatric Psychiatric: A&O x's 3, appropriate affect, intact judgment & insight - Labs CBC & Chem 7: 07/25/21 08:02 07/25/21 08:02 Labs: Abnormal Lab Results - Last 24 Hours (Table) 07/25/21 07/25/21 Range/Units 08:02 08:02 RBC 3.87 L (4.30-5.90) m/uL Hgb 11.9 L (13.0-17.5) gm/dL Hct 38.6 L (39.0-53.0) % MCHC 30.8 L (31.0-37.0) g/dL Plt Count 103 L (150-450) k/uL Neutrophils # 7.8 H (1.3-7.7) k/uL Lymphocytes # 0.4 L (1.0-4.8) k/uL Potassium 5.6 H (3.5-5.1) mmol/L Chloride 115 H (98-107) mmol/L Carbon Dioxide 14 L (22-30) mmol/L BUN 58 H (9-20) mg/dL Creatinine 2.30 H (0.66-1.25) mg/dL Glucose 142 H (74-99) mg/dL AST 74 H (17-59) U/L ALT 66 H (4-49) U/L Total Protein 5.9 L (6.3-8.2) g/dL Albumin 3.1 L (3.5-5.0) g/dL Assessment and Plan Assessment: Likely gram-negative pneumonia Intermittent hemoptysis Generalized weakness Fall related to weakness COVID-19 infection GERD BPH Dyslipidemia Coronary artery disease with history of CABG and stent placement Plan: Zosyn 3.375 every 8 hours IV steroids 40 mg IV every 8 hourly Send sputum for Gram stain and culture Continue deep breathing sense incentive spirometry We will DC Decadron Long-term prognosis poor Time with Patient: Greater than 30
[2021-07-25] MEDS: PIPERACILLIN-TAZOBACTAM 3.375 GM in SODIUM CHLORIDE 0.9% 100 ML IVPB SCH ×2 (17:57→23:43)
[2021-07-25] MEDS: methylPREDNISolone SOD SUCCI 40 MG/ML 1 ML VIAL IV SCH ×2 (17:57→23:43)
--- NOTE | 2021-07-25 18:15 | PN ---
PROGRESS NOTE DATE OF SERVICE: 07/24/2021. This 89-year-old white male has generalized weakness, COVID pneumonia, acute hypoxemic respiratory distress, generalized weakness dehydration. He feels a little bit better from his COVID. He is saturating better, mid 90s on 2 L down to room air. Temperature 97.5, pulse 50, blood pressure 122/64, O2 95% on room air. Lungs have mild wheeze and rhonchi. Cardiovascular S1-S2. Hematology negative Homans. Supportive treatment. Overall improvement. He is on room air. Chest x-ray shows no worsening. Continue with Eliquis. Zinc, dexamethasone, ascorbic acid. Possible discharge home in the next few days. MMODL / IJN: [id number] /
--- NOTE | 2021-07-25 19:31 | PN ---
PROGRESS NOTE DATE OF SERVICE: 07/25/2021 REASON FOR FOLLOWUP: Pneumonia. INTERVAL HISTORY: The patient is currently afebrile. The patient did have slight worsening of his respiratory status. The patient is requiring supplemental oxygen. The patient also is having more cough and is bringing up some yellowish to greenish sputum. No chest pain. No abdominal pain or diarrhea. PHYSICAL EXAMINATION: Blood pressure is 119/53 with a pulse of 56, temperature 98. He is 96% on 2 L nasal cannula. General description is an elderly male up in the chair in no distress. Respiratory system: Unlabored breathing, coarse breath sounds bilaterally, no wheeze. Heart S1, S2. Regular rate and rhythm. Abdomen soft, no tenderness. LABS: Hemoglobin 11.1, white count 8.6, creatinine is 2.3. DIAGNOSTIC IMPRESSION AND PLAN: Patient with acute respiratory failure secondary to COVID-19 infection, now with worsening of his and a possible component of secondary bacterial pneumonia. Antibiotic added. Sputum culture will be requested, and monitor his clinical course closely. MMOKL / IJN: [id number] /
[2021-07-25] MEDS: CHOLECALCIFEROL 25 MCG (1000 IU) TABLET PO SCH (19:54)
[2021-07-25] MEDS: METOPROLOL SUCCINATE (ER) 25 MG TAB.ER.24H PO SCH (19:55)
[2021-07-25] MEDS: MONTELUKAST 10 MG TAB PO SCH (19:55)
[2021-07-25] MEDS: MAGNESIUM OXIDE 400 MG TAB PO SCH (19:55)
[2021-07-25] MEDS: ATORVASTATIN 20 MG TAB PO SCH (19:55)
[2021-07-25] MEDS: AMIODARONE 200 MG TAB PO SCH (19:55)
[2021-07-26] MEDS: MIDODRINE 5 MG TAB PO SCH ×3 (04:17→16:49)
[2021-07-26] MEDS: PANTOPRAZOLE 40 MG TABLET PO SCH (06:05)
[2021-07-26] MEDS: INSULIN ASPART (NovoLOG) 100 UNIT/ML VIAL SQ SCH ×4 (06:42→20:19)
[2021-07-26 06:43] LABS: Glucose,Whole Blood 147 mg/dL (75-99)
--- NOTE | 2021-07-26 08:02 | XR ---
EXAMINATION TYPE: XR chest 1V portable DATE OF EXAM: 07/26/2021 Comparison: 07/25/2021 Clinical History: 89-year-old male covid 19 infection Findings: Median sternotomy wires and postsurgical clips in the mediastinum. Left anterior chest wall ICD gener ator with right atrial and right ventricular leads. Heart remains mildly enlarged. Interstitial densi ties have increased and patchy opacities have developed. No sizable effusion. Impression: Interval worsening with development of patchy bilateral infiltrates.
[2021-07-26 08:44] LABS: Basophils % (A) 0 %; Eosinophils % (A) 0 %; HCT 39.7 % (39.0-53.0); HGB 12.3 gm/dL (13.0-17.5); Hypochromasia Slight; Lymphocytes # (A) 0.3 k/uL (1.0-4.8); Lymphocytes % (A) 5 %; MCH 31.2 pg (25.0-35.0); MCV 100.4 fL (80.0-100.0); Macrocytosis Slight; Mean Platelet Volume 8.8; Monocytes # (A) 0.1 k/uL (0-1.0); Monocytes % (A) 2 %; Neutrophils # (A) 5.7 k/uL (1.3-7.7); Neutrophils % (A) 92 %; Platelet Count 113 k/uL (150-450); RBC 3.95 m/uL (4.30-5.90); RDW 15.4 % (11.5-15.5); WBC 6.2 k/uL (3.8-10.6)
[2021-07-26 08:57] LABS: Albumin 3.2 g/dL (3.5-5.0); Calcium 8.3 mg/dL (8.4-10.2); Potassium 5.5 mmol/L (3.5-5.1); Total Bilirubin 0.9 mg/dL (0.2-1.3)
[2021-07-26] MEDS: APIXABAN 2.5 MG TABLET PO SCH ×2 (09:11→20:11)
[2021-07-26] MEDS: ZINC SULFATE 220 MG CAP PO SCH (09:11)
[2021-07-26] MEDS: ASCORBIC ACID 500 MG TAB PO SCH (09:11)
[2021-07-26] MEDS: FINASTERIDE 5 MG TAB PO SCH (09:11)
[2021-07-26] MEDS: PIPERACILLIN-TAZOBACTAM 3.375 GM in SODIUM CHLORIDE 0.9% 100 ML IVPB SCH ×3 (09:11→23:06)
[2021-07-26] MEDS: TAMSULOSIN 0.4 MG CAP.ER.24H PO SCH (09:11)
[2021-07-26] MEDS: methylPREDNISolone SOD SUCCI 40 MG/ML 1 ML VIAL IV SCH ×3 (09:11→23:06)
[2021-07-26] MEDS: FUROSEMIDE 10 MG TAB PO SCH (09:11)
[2021-07-26] MEDS: allopurinoL 300 MG TAB PO SCH (09:11)
[2021-07-26] MEDS: KETOTIFEN 0.025% OPHTH DROPS 5 ML BTL BOTH EYES SCH ×2 (09:12→20:14)
[2021-07-26 12:13] LABS: Glucose,Whole Blood 193 mg/dL (75-99)
[2021-07-26] MEDS: SODIUM CHLORIDE 0.9% 1,000 ML IV SCH ×3 (13:57→21:17)
[2021-07-26 16:38] LABS: Glucose,Whole Blood 167 mg/dL (75-99)
--- NOTE | 2021-07-26 18:56 | PN ---
PROGRESS NOTE DATE OF SERVICE: 07/26/2021 REASON FOR FOLLOWUP: Pneumonia. INTERVAL HISTORY: Patient is afebrile. The patient is currently breathing slightly comfortably. The patient continues to have a cough and is bringing up some purulence. Patient with minimal blood streaking. Denies any nausea, no vomiting. No abdominal pain. No diarrhea. PHYSICAL EXAMINATION: Blood pressure 123/68 with a pulse of 49, temperature 98.2. He is 96% on 2 L nasal cannula. General description is an elderly male lying in bed in no distress. Respiratory system: Unlabored breathing, coarse breath sounds bilaterally. No wheeze. Heart S1, S2. Regular rate and rhythm. Abdomen soft, no tenderness. LABS: Hemoglobin is 12.1, white count 6.2, creatinine is 2.11. DIAGNOSTIC IMPRESSION AND PLAN: Patient admitted to the hospital with pneumonia, initial diagnosis of a Covid 19 frequently worsening, no purulent sputum, of possible secondary pneumonia. Sputum culture has been requested. Patient is covered with Zosyn adjusting antibiotic further based on culture report. Continue supportive care. MMODL / IJN: [id number] /
[2021-07-26 19:54] LABS: Glucose,Whole Blood 168 mg/dL (75-99)
[2021-07-26] MEDS: METOPROLOL SUCCINATE (ER) 25 MG TAB.ER.24H PO SCH (20:10)
[2021-07-26] MEDS: AMIODARONE 200 MG TAB PO SCH (20:11)
[2021-07-26] MEDS: ATORVASTATIN 20 MG TAB PO SCH (20:11)
[2021-07-26] MEDS: CHOLECALCIFEROL 25 MCG (1000 IU) TABLET PO SCH (20:14)
[2021-07-26] MEDS: MONTELUKAST 10 MG TAB PO SCH (20:14)
[2021-07-26] MEDS: MAGNESIUM OXIDE 400 MG TAB PO SCH (21:06)
--- NOTE | 2021-07-26 22:37 | PN ---
PROGRESS NOTE 89-year-old white male admitted with Covid pneumonia, slowly improving. Remains on zinc, Decadron, Symbicort. Pulse 49-50, temp 98.6, blood pressure 123/68. He is saturating 96 on 2 L. Sitting up in a chair. Cardiovascular S1, S2. Lungs scattered rhonchi and wheeze. Hematology negative Homans. Psych: Fair mood and affect. ASSESSMENT: Covid pneumonia, acute hypoxemic respiratory distress. Prognosis guarded. Continue current treatment. Possible rehab center on Wednesday. MMODL / IJN: [id number] /
[2021-07-27] MEDS: MIDODRINE 5 MG TAB PO SCH ×3 (06:26→17:11)
[2021-07-27] MEDS: PANTOPRAZOLE 40 MG TABLET PO SCH (06:26)
[2021-07-27] MEDS: INSULIN ASPART (NovoLOG) 100 UNIT/ML VIAL SQ SCH ×4 (06:28→20:43)
[2021-07-27] MEDS: SODIUM CHLORIDE 0.9% 1,000 ML IV SCH ×3 (06:30→15:26)
[2021-07-27 06:48] LABS: Glucose,Whole Blood 132 mg/dL (75-99)
[2021-07-27] MEDS: ALBUTEROL HFA INHALER INHALATION PRN ×4 (08:10→20:00)
[2021-07-27] MEDS: methylPREDNISolone SOD SUCCI 40 MG/ML 1 ML VIAL IV SCH ×3 (08:24→23:00)
[2021-07-27] MEDS: PIPERACILLIN-TAZOBACTAM 3.375 GM in SODIUM CHLORIDE 0.9% 100 ML IVPB SCH ×3 (08:24→23:00)
[2021-07-27] MEDS: KETOTIFEN 0.025% OPHTH DROPS 5 ML BTL BOTH EYES SCH ×2 (08:24→20:15)
[2021-07-27] MEDS: TAMSULOSIN 0.4 MG CAP.ER.24H PO SCH (08:25)
[2021-07-27] MEDS: FINASTERIDE 5 MG TAB PO SCH (08:25)
[2021-07-27] MEDS: ZINC SULFATE 220 MG CAP PO SCH (08:25)
[2021-07-27] MEDS: APIXABAN 2.5 MG TABLET PO SCH ×2 (08:25→20:15)
[2021-07-27] MEDS: allopurinoL 300 MG TAB PO SCH (08:25)
[2021-07-27] MEDS: FUROSEMIDE 10 MG TAB PO SCH (08:25)
[2021-07-27] MEDS: ASCORBIC ACID 500 MG TAB PO SCH (08:25)
--- NOTE | 2021-07-27 08:55 | XR ---
EXAMINATION TYPE: XR chest 1V portable DATE OF EXAM: 07/27/2021 COMPARISON: 07/26/2021 HISTORY: 89 years Male. STUDY INDICATION GIVEN: covid 19 infection . TECHNIQUE: AP chest radiograph IMPRESSION: Interval decrease in left greater than right airspace and interstitial. No pneumothorax or large effusion. Stable cardiomediastinal silhouette with postsurgical changes and cardiac AICD device. Stable appearing osseous structures and upper abdomen.
[2021-07-27 09:51] LABS: Basophils % (A) 0 %; Eosinophils % (A) 0 %; HCT 39.9 % (39.0-53.0); HGB 12.3 gm/dL (13.0-17.5); Hypochromasia Moderate; Lymphocytes # (A) 0.4 k/uL (1.0-4.8); Lymphocytes % (A) 5 %; MCH 31.1 pg (25.0-35.0); MCHC 30.7 g/dL (31.0-37.0); MCV 101.2 fL (80.0-100.0); Macrocytosis Slight; Mean Platelet Volume 8.6; Monocytes # (A) 0.3 k/uL (0-1.0); Monocytes % (A) 3 %; Neutrophils # (A) 8.7 k/uL (1.3-7.7); Neutrophils % (A) 92 %; Platelet Count 116 k/uL (150-450); RBC 3.94 m/uL (4.30-5.90); RDW 15.4 % (11.5-15.5); WBC 9.4 k/uL (3.8-10.6)
[2021-07-27 10:03] LABS: Albumin 2.9 g/dL (3.5-5.0); Magnesium 2.3 mg/dL (1.6-2.3); Potassium 5.5 mmol/L (3.5-5.1); Total Bilirubin 0.8 mg/dL (0.2-1.3); Total Protein 5.6 g/dL (6.3-8.2)
[2021-07-27 11:49] LABS: Glucose,Whole Blood 143 mg/dL (75-99)
[2021-07-27 16:40] LABS: Glucose,Whole Blood 158 mg/dL (75-99)
[2021-07-27] MEDS: CHOLECALCIFEROL 25 MCG (1000 IU) TABLET PO SCH (20:15)
[2021-07-27] MEDS: ATORVASTATIN 20 MG TAB PO SCH (20:15)
[2021-07-27] MEDS: MONTELUKAST 10 MG TAB PO SCH (20:15)
[2021-07-27] MEDS: AMIODARONE 200 MG TAB PO SCH (20:15)
[2021-07-27] MEDS: METOPROLOL SUCCINATE (ER) 25 MG TAB.ER.24H PO SCH (20:15)
[2021-07-27 20:36] LABS: Glucose,Whole Blood 155 mg/dL (75-99)
--- NOTE | 2021-07-27 21:39 | PN ---
PROGRESS NOTE Admitted with Covid pneumonia, Covid 19, acute hypoxemic respiratory distress. He will possibly need to go to rehab center as he is not improving. Pulse is 55-50, temp 98.3, blood pressure 127/81, O2 91% on room air. Cardiovascular S1, S2. Lungs clear. GI soft. Hematology: Negative Homans. Psych: Fair mood and affect. ASSESSMENT AND PLAN: 1. Covid 19 pneumonia. 2. Acute hypoxemic respiratory distress. 3. Continue Covid antibodies, Lovenox, steroids. 4. Condition stable. 5. Prognosis guarded. He may need rehab placement in the near future. MMODL / IJN: [id number] /
[2021-07-28] MEDS: SODIUM CHLORIDE 0.9% 1,000 ML IV SCH ×4 (06:11→21:21)
[2021-07-28] MEDS: PANTOPRAZOLE 40 MG TABLET PO SCH (06:29)
[2021-07-28] MEDS: MIDODRINE 5 MG TAB PO SCH ×3 (06:29→18:23)
[2021-07-28 06:30] LABS: Glucose,Whole Blood 144 mg/dL (75-99)
[2021-07-28] MEDS: INSULIN ASPART (NovoLOG) 100 UNIT/ML VIAL SQ SCH ×4 (06:30→21:22)
[2021-07-28 06:55] LABS: Basophils % (A) 0 %; Eosinophils % (A) 0 %; Hypochromasia Slight; Lymphocytes % (A) 3 %; MCH 31.4 pg (25.0-35.0); MCHC 31.6 g/dL (31.0-37.0); MCV 99.6 fL (80.0-100.0); Macrocytosis Slight; Mean Platelet Volume 8.3; Monocytes % (A) 2 %; Neutrophils % (A) 94 %; Platelet Count 118 k/uL (150-450); RBC 3.81 m/uL (4.30-5.90); RDW 15.5 % (11.5-15.5); WBC 7.9 k/uL (3.8-10.6)
[2021-07-28 06:56] LABS: Lymphocytes # (A) 0.2 k/uL (1.0-4.8); Monocytes # (A) 0.2 k/uL (0-1.0); Neutrophils # (A) 7.4 k/uL (1.3-7.7)
[2021-07-28 07:07] LABS: Albumin 2.8 g/dL (3.5-5.0); Potassium 5.7 mmol/L (3.5-5.1); Total Bilirubin 0.8 mg/dL (0.2-1.3); Total Protein 5.6 g/dL (6.3-8.2)
--- NOTE | 2021-07-28 07:52 | PN ---
PROGRESS NOTE DATE OF SERVICE: 07/27/2021 REASON FOR FOLLOWUP: Pneumonia. INTERVAL HISTORY: The patient is afebrile. The patient is currently on room air. He is breathing slightly comfortably. The patient denies having any chest pain. No worsening cough or sputum production. No abdominal pain or diarrhea. PHYSICAL EXAMINATION: Blood pressure 142/76, pulse of 55, temperature 97.5. He is 92% on room air. General description is an elderly male lying in bed in no distress. Respiratory system: Unlabored breathing, decreased breath sounds at the base. No wheeze. Heart S1, S2. Regular rate and rhythm. Abdomen soft, no tenderness. LABS: Hemoglobin is 12.8, white count 9.4, creatinine is 2.27. DIAGNOSTIC IMPRESSION AND PLAN: Patient with acute respiratory failure/pneumonia with an initial diagnosis of COVID-19, concern for possible secondary bacteria pneumonia. Sputum culture is currently pending. Patient empirically covered with Zosyn. Continue with supportive care. MMODL / IJN: [id number] /
[2021-07-28] MEDS: PIPERACILLIN-TAZOBACTAM 3.375 GM in SODIUM CHLORIDE 0.9% 100 ML IVPB SCH ×2 (08:45→16:59)
[2021-07-28] MEDS: methylPREDNISolone SOD SUCCI 40 MG/ML 1 ML VIAL IV SCH ×2 (08:45→16:59)
[2021-07-28] MEDS: FINASTERIDE 5 MG TAB PO SCH (08:46)
[2021-07-28] MEDS: TAMSULOSIN 0.4 MG CAP.ER.24H PO SCH (08:46)
[2021-07-28] MEDS: allopurinoL 300 MG TAB PO SCH (08:46)
[2021-07-28] MEDS: ZINC SULFATE 220 MG CAP PO SCH (08:46)
[2021-07-28] MEDS: FUROSEMIDE 10 MG TAB PO SCH (08:46)
[2021-07-28] MEDS: ASCORBIC ACID 500 MG TAB PO SCH (08:46)
[2021-07-28] MEDS: APIXABAN 2.5 MG TABLET PO SCH ×2 (08:46→21:27)
[2021-07-28] MEDS: KETOTIFEN 0.025% OPHTH DROPS 5 ML BTL BOTH EYES SCH ×2 (08:47→21:41)
[2021-07-28] MEDS: ALBUTEROL HFA INHALER INHALATION PRN ×4 (09:16→21:36)
[2021-07-28 11:56] LABS: Glucose,Whole Blood 141 mg/dL (75-99)
[2021-07-28 16:56] LABS: Glucose,Whole Blood 197 mg/dL (75-99)
--- NOTE | 2021-07-28 18:27 | P.PN ---
Subjective Progress Note Date: 07/28/21 Principal diagnosis: Pneumonia Blood stained sputum secondary pneumonia Generalized weakness Fall related to weakness COVID-19 infection GERD BPH Dyslipidemia Coronary artery disease with history of CABG and stent placement 07/28/2021, patient seen eval reexamined during the rounds labs reviewed medications reviewed still have ongoing cough on however sputum is chemist 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, no more hemoptysis seen, Sputum culture no pathologic organism have been seen, patient remains afebrile, with oxygen saturation of 91-92% room air, uterus chest x-ray shows slight improvement in bilateral basal infiltrate, labs reviewed today white cell count within normal limit potassium is 5.7 BUN/creatinine is 77 and 2.4, 07/25/2021, patient seen eval examined during the rounds labs reviewed medications reviewed, patient has intermittent cough and he is producing clear to yellow sputum mixed with intermittent stye streaks of blood, more short of breath on 2 L oxygen, discussed with infectious disease services will start patient on IV steroids antibiotics send sputum for Gram stain and culture 07/24/2021, patient seen eval examined during the rounds overall no significant change in saturation 95% on room air, patient remains on oral steroids Decadron 6 mg daily, tolerating well today's x-ray reviewed some streak-like infiltrate at the bases cannot be excluded or perihilar infiltrate 07/23/2021, patient seen eval examined in follow-up, respiratory status not much change, chest x-ray reviewed possible interstitial pattern cannot be excluded, patient remains on room air as saturation 94% with stable hemodynamics, blood pressure is the 110/60, patient remains on bronchodilator continuation of home medications including liquids along with daily 6 mg of Decadron, patient has been restarted on her midodrine Patient is a 89-year-old male came into the hospital with generalized weakness and fall related to weakness, patient sees Dr. Yadav for primary care ac tivities, cagle denies any night sweats fever or chills denies any chest pain or radiation of pain, no fever no bowel or bladder related problem, patient does have cough with sputum production his labs were significant for a hemoglobin of 12.6, platelet count of 10 7000, BUN/creatinine 56/2.27, glucose is 210, troponin 0.055 0.0 6 AM 0.047, oxygen saturation is 90% to 95% room air improved to, "test came back positive, chest x-ray and rib x-ray stable pacemaker and wires no infiltrate or heart failure identified no pneumothorax, currently patient is treated with bronchodilators continuation of home medications including amiodarone and requests primary History is significant for coronary artery disease, COPD, GERD, deafness, dyslipidemia, degenerative joint disease osteoarthritis history of pneumonia and sleep apnea Past surgical history significant for a bypass surgery, cardiac cath and stent placement and hernia repair orthopedic repair history of pacemaker insertion, stents no history of smoking through abuse and substance use Objective - Vital Signs Vital signs: Vital Signs Temp 97.5 F L 07/28/21 08:00 Pulse 50 L 07/28/21 08:00 Resp 20 07/28/21 08:00 BP 139/70 07/28/21 08:00 Pulse Ox 91 L 07/28/21 08:00 Intake & Output 07/27/21 07/28/21 07/28/21 18:59 06:59 18:59 Intake Total 1620 200 480 Output Total 175 500 Balance 1620 25 -20 Intake: IV 1000 Piperacillin-Tazobactam 3 200 .375 gm In Sodium Chloride 0.9% 100 ml @ 25 mls/hr IVPB Q8HR DEVYN Rx# :[id number] Sodium Chloride 0.9% 1, 800 000 ml @ 100 mls/hr IV . Q10H DEVYN Rx#:[id number] Oral 620 200 480 Output: Urine 175 500 Other: Voiding Method External Catheter # Voids 1 # Bowel Movements 1 1 - Exam - Exam - Constitutional General appearance: average body habitus, cooperative - EENT Eyes: PERRLA Ears: bilateral: normal - Neck Carotids: bilateral: upstroke normal Thyroid: bilateral: normal size - Respiratory Respiratory: bilateral: CTA - Cardiovascular Rhythm: regular Heart sounds: normal: S1, S2 - Gastrointestinal General gastrointestinal: soft - Neurologic Neurologic: CNII-XII intact - Musculoskeletal Musculoskeletal: gait normal, generalized weakness, strength equal bilaterally - Psychiatric Psychiatric: A&O x's 3, appropriate affect, intact judgment & insight - Labs CBC & Chem 7: 07/28/21 05:52 07/28/21 05:52 Labs: Abnormal Lab Results - Last 24 Hours (Table) 07/27/21 07/28/21 07/28/21 Range/Units 20:21 05:52 05:52 RBC 3.81 L (4.30-5.90) m/uL Hgb 12.0 L (13.0-17.5) gm/dL Hct 38.0 L (39.0-53.0) % Plt Count 118 L (150-450) k/uL Lymphocytes # 0.2 L (1.0-4.8) k/uL Potassium 5.7 H (3.5-5.1) mmol/L Chloride 113 H (98-107) mmol/L Carbon Dioxide 15 L (22-30) mmol/L BUN 77 H (9-20) mg/dL Creatinine 2.40 H (0.66-1.25) mg/dL Glucose 135 H (74-99) mg/dL POC Glucose (mg/dL) 155 H (75-99) mg/dL Calcium 8.0 L (8.4-10.2) mg/dL ALT 64 H (4-49) U/L Total Protein 5.6 L (6.3-8.2) g/dL Albumin 2.8 L (3.5-5.0) g/dL 07/28/21 07/28/21 07/28/21 Range/Units 06:10 11:42 16:44 RBC (4.30-5.90) m/uL Hgb (13.0-17.5) gm/dL Hct (39.0-53.0) % Plt Count (150-450) k/uL Lymphocytes # (1.0-4.8) k/uL Potassium (3.5-5.1) mmol/L Chloride (98-107) mmol/L Carbon Dioxide (22-30) mmol/L BUN (9-20) mg/dL Creatinine (0.66-1.25) mg/dL Glucose (74-99) mg/dL POC Glucose (mg/dL) 144 H 141 H 197 H (75-99) mg/dL Calcium (8.4-10.2) mg/dL ALT (4-49) U/L Total Protein (6.3-8.2) g/dL Albumin (3.5-5.0) g/dL Microbiology - Last 24 Hours (Table) 07/26/21 06:30 Gram Stain - Final Sputum Sputum Culture - Final Assessment and Plan Assessment: Likely gram-negative pneumonia/mixed bacterial pneumonia Intermittent hemoptysis Generalized weakness Fall related to weakness Acute on chronic kidney injury COVID-19 infection GERD BPH Dyslipidemia Coronary artery disease with history of CABG and stent placement Plan: Zosyn 3.375 every 8 hours, adjust dose per renal functions will defer to pharmacy services IV steroids 40 mg IV every 8 hourly, can be reduced to every 12 next 24 hours Reviewed results of sputum for Gram stain and culture Continue deep breathing sense incentive spirometry Long-term prognosis poor Time with Patient: Greater than 30
[2021-07-28 20:47] LABS: Glucose,Whole Blood 139 mg/dL (75-99)
[2021-07-28] MEDS: MONTELUKAST 10 MG TAB PO SCH (21:27)
[2021-07-28] MEDS: CHOLECALCIFEROL 25 MCG (1000 IU) TABLET PO SCH (21:27)
[2021-07-28] MEDS: AMIODARONE 200 MG TAB PO SCH (21:27)
[2021-07-28] MEDS: METOPROLOL SUCCINATE (ER) 25 MG TAB.ER.24H PO SCH (21:27)
[2021-07-28] MEDS: ATORVASTATIN 20 MG TAB PO SCH (21:27)
--- NOTE | 2021-07-28 21:51 | PN ---
PROGRESS NOTE DATE OF SERVICE: 07/28/2021 REASON FOR FOLLOWUP: Pneumonia. INTERVAL HISTORY: The patient is currently afebrile. The patient is breathing comfortably. He is on room air. The patient denies having any chest pain. Cough has decreased in intensity, less productive. No vomiting. No abdominal pain or diarrhea. PHYSICAL EXAMINATION: Blood pressure 138/66, pulse of 52, temperature 97.8. He is 94% on room air. General description is an elderly male up in the bed in no distress. Respiratory system: Unlabored breathing, decreased intensity of breath sounds. No wheeze. Heart S1, S2. Regular rate and rhythm. Abdomen soft, no tenderness. LABS: Hemoglobin is 12, white count 7.9. Creatinine is 2.40. Sputum is usual respiratory jory. DIAGNOSTIC IMPRESSION AND PLAN: Patient admitted to hospital with shortness of breath, cough and fever, initial diagnosis of COVID infection with concern for possible secondary bacterial pneumonia. Patient seems to have shown improvement on Zosyn; will continue and hopefully transition to oral antibiotic on discharge, as the sputum has been negative for any resistant pathogen. Monitor clinical course closely. MMODL / IJN: [id number] /
[2021-07-29] MEDS: methylPREDNISolone SOD SUCCI 40 MG/ML 1 ML VIAL IV SCH ×4 (00:36→23:42)
[2021-07-29] MEDS: PIPERACILLIN-TAZOBACTAM 3.375 GM in SODIUM CHLORIDE 0.9% 100 ML IVPB SCH ×3 (00:36→20:48)
[2021-07-29] MEDS: SODIUM CHLORIDE 0.9% 1,000 ML IV SCH ×5 (00:56→20:51)
[2021-07-29 06:23] LABS: Glucose,Whole Blood 120 mg/dL (75-99)
[2021-07-29] MEDS: INSULIN ASPART (NovoLOG) 100 UNIT/ML VIAL SQ SCH ×4 (06:30→20:48)
[2021-07-29] MEDS: PANTOPRAZOLE 40 MG TABLET PO SCH (06:33)
[2021-07-29 08:31] LABS: Basophils % (A) 0 %; Eosinophils % (A) 0 %; HCT 40.8 % (39.0-53.0); HGB 12.7 gm/dL (13.0-17.5); Hypochromasia Slight; Lymphocytes # (A) 0.3 k/uL (1.0-4.8); Lymphocytes % (A) 4 %; MCHC 31.1 g/dL (31.0-37.0); MCV 99.6 fL (80.0-100.0); Macrocytosis Slight; Mean Platelet Volume 8.3; Monocytes # (A) 0.3 k/uL (0-1.0); Monocytes % (A) 4 %; Neutrophils # (A) 7.2 k/uL (1.3-7.7); Neutrophils % (A) 91 %; Platelet Count 136 k/uL (150-450); RDW 15.6 % (11.5-15.5); WBC 7.9 k/uL (3.8-10.6)
[2021-07-29] MEDS: MIDODRINE 5 MG TAB PO SCH ×3 (08:38→17:11)
[2021-07-29] MEDS: TAMSULOSIN 0.4 MG CAP.ER.24H PO SCH (08:38)
[2021-07-29] MEDS: APIXABAN 2.5 MG TABLET PO SCH ×2 (08:38→20:49)
[2021-07-29] MEDS: ZINC SULFATE 220 MG CAP PO SCH (08:38)
[2021-07-29] MEDS: ASCORBIC ACID 500 MG TAB PO SCH (08:38)
[2021-07-29] MEDS: FINASTERIDE 5 MG TAB PO SCH (08:38)
[2021-07-29] MEDS: allopurinoL 300 MG TAB PO SCH (08:38)
[2021-07-29] MEDS: FUROSEMIDE 10 MG TAB PO SCH (08:39)
[2021-07-29] MEDS: KETOTIFEN 0.025% OPHTH DROPS 5 ML BTL BOTH EYES SCH ×2 (08:40→20:50)
[2021-07-29 09:09] LABS: Albumin 2.8 g/dL (3.5-5.0); Calcium 8.1 mg/dL (8.4-10.2); Potassium 5.3 mmol/L (3.5-5.1); Total Bilirubin 0.8 mg/dL (0.2-1.3); Total Protein 5.5 g/dL (6.3-8.2)
[2021-07-29] MEDS: ALBUTEROL HFA INHALER INHALATION PRN ×3 (09:28→19:20)
--- NOTE | 2021-07-29 10:55 | PN ---
PROGRESS NOTE This 89-year-old white male with generalized weakness, COVID pneumonia and encephalopathy remains on treatment for COVID, waiting for detention placement. His pulse is 52 to 50, temperature 97.8, oxygen 94 on room air, blood pressure 130/66. Cardiovascular: S1, S2. Lungs: Rales and rhonchi. Hematology: Negative Homans. ASSESSMENT: 1. COVID-19 pneumonia. 2. Acute hypoxemic respiratory distress. 3. Chronic obstructive pulmonary disease. 4. Coronary artery disease. 5. Congestive heart failure. Prognosis guarded. Follow up in next 24 to 48 hours. Decadron, steroids, blood thinners. MMODL / IJN: [id number] /
[2021-07-29 12:04] LABS: Glucose,Whole Blood 154 mg/dL (75-99)
[2021-07-29 17:09] LABS: Glucose,Whole Blood 204 mg/dL (75-99)
[2021-07-29 20:33] LABS: Glucose,Whole Blood 201 mg/dL (75-99)
[2021-07-29] MEDS: MONTELUKAST 10 MG TAB PO SCH (20:49)
[2021-07-29] MEDS: BENZONATATE 100 MG CAP PO SCH (20:49)
[2021-07-29] MEDS: CHOLECALCIFEROL 25 MCG (1000 IU) TABLET PO SCH (20:49)
[2021-07-29] MEDS: guaiFENesin 600 MG TABLET.ER PO SCH (20:49)
[2021-07-29] MEDS: ATORVASTATIN 20 MG TAB PO SCH (20:49)
[2021-07-29] MEDS: METOPROLOL SUCCINATE (ER) 25 MG TAB.ER.24H PO SCH (20:50)
[2021-07-29] MEDS: AMIODARONE 200 MG TAB PO SCH (20:50)
--- NOTE | 2021-07-29 22:51 | PN ---
PROGRESS NOTE DATE OF SERVICE: 07/29/2021 REASON FOR FOLLOWUP: Pneumonia. INTERVAL HISTORY: The patient is afebrile. The patient is currently breathing comfortably. The patient denies having any chest pain or shortness of breath. He did have a cough; no worsening and less sputum production. No abdominal pain or diarrhea. PHYSICAL EXAMINATION: Blood pressure 135/69 with a pulse of 51, temperature 98.3. He is 97% on 2 L nasal cannula. General description is an elderly male lying in bed in no distress. Respiratory system: Unlabored breathing, decreased intensity of breath sounds. No wheeze. Heart S1, S2. Regular rate and rhythm. Abdomen soft, no tenderness. LABS: Hemoglobin is 12.3, white count 7.9. Creatinine is 2.47. DIAGNOSTIC IMPRESSION AND PLAN: Patient admitted to hospital with pneumonia with initial diagnosis of COVID-19 with concern for possible secondary bacterial pneumonia. Patient is covered with Zosyn; to continue. Will monitor closely and continue with supportive care. MMODL / IJN: [id number] /
[2021-07-30 06:18] LABS: Glucose,Whole Blood 153 mg/dL (75-99)
[2021-07-30] MEDS: INSULIN ASPART (NovoLOG) 100 UNIT/ML VIAL SQ SCH ×4 (06:33→21:05)
[2021-07-30] MEDS: SODIUM CHLORIDE 0.9% 1,000 ML IV SCH (06:33)
[2021-07-30] MEDS: MIDODRINE 5 MG TAB PO SCH ×3 (06:33→16:50)
[2021-07-30] MEDS: PANTOPRAZOLE 40 MG TABLET PO SCH (06:33)
[2021-07-30 06:43] LABS: Basophils % (A) 0 %; Eosinophils % (A) 0 %; HCT 39.6 % (39.0-53.0); HGB 12.3 gm/dL (13.0-17.5); Hypochromasia Slight; Lymphocytes # (A) 0.3 k/uL (1.0-4.8); Lymphocytes % (A) 4 %; MCH 31.2 pg (25.0-35.0); MCV 100.6 fL (80.0-100.0); Macrocytosis Slight; Mean Platelet Volume 8.5; Monocytes # (A) 0.2 k/uL (0-1.0); Monocytes % (A) 3 %; Neutrophils # (A) 6.5 k/uL (1.3-7.7); Neutrophils % (A) 93 %; Platelet Count 146 k/uL (150-450); RBC 3.93 m/uL (4.30-5.90); RDW 15.7 % (11.5-15.5)
[2021-07-30 06:48] LABS: Albumin 2.6 g/dL (3.5-5.0); Calcium 8.1 mg/dL (8.4-10.2); Potassium 5.3 mmol/L (3.5-5.1); Total Bilirubin 0.8 mg/dL (0.2-1.3); Total Protein 5.3 g/dL (6.3-8.2)
--- NOTE | 2021-07-30 08:53 | PN ---
PROGRESS NOTE This is an 89-year-old white male with COVID pneumonia. He is saturating mid 90s on 2 L at this point. Remains on IV Solu-Medrol, Zosyn, switch to oral antibiotics on discharge. He is up in a chair eating and has some generalized weakness, encephalopathy. Continue to switch him to oral medicines and possibly sent home to rehab center tomorrow. Waiting for [facility] on the [place] to take him. Vital signs reviewed. Cardiovascular S1, S2. GI soft. Hematology negative Homans. Psych fair mood and affect. He has slight hyperkalemia. Medicines will be adjusted. He still has prerenal renal azotemia. Wait for renal physician to see him. Continue with slow rehydration. Prognosis guarded. MMODL / IJN: [id number] /
[2021-07-30] MEDS: ALBUTEROL HFA INHALER INHALATION PRN ×3 (09:10→21:10)
[2021-07-30] MEDS: guaiFENesin 600 MG TABLET.ER PO SCH ×2 (09:11→20:53)
[2021-07-30] MEDS: ASCORBIC ACID 500 MG TAB PO SCH (09:11)
[2021-07-30] MEDS: APIXABAN 2.5 MG TABLET PO SCH ×2 (09:11→20:53)
[2021-07-30] MEDS: ZINC SULFATE 220 MG CAP PO SCH (09:11)
[2021-07-30] MEDS: FINASTERIDE 5 MG TAB PO SCH (09:12)
[2021-07-30] MEDS: BENZONATATE 100 MG CAP PO SCH ×3 (09:12→20:53)
[2021-07-30] MEDS: allopurinoL 300 MG TAB PO SCH (09:12)
[2021-07-30] MEDS: dexAMETHasone 2 MG TAB PO SCH (09:12)
[2021-07-30] MEDS: PIPERACILLIN-TAZOBACTAM 3.375 GM in SODIUM CHLORIDE 0.9% 100 ML IVPB SCH ×2 (09:12→20:49)
[2021-07-30] MEDS: TAMSULOSIN 0.4 MG CAP.ER.24H PO SCH (09:12)
--- NOTE | 2021-07-30 09:51 | P.NPCON ---
History of Present Illness - Reason for Consult acute renal failure, chronic renal failure - History of Present Illness Reason for consultation: Acute kidney injury on chronic kidney disease History of present illness: Patient is a 89-year-old male seen in renal consultation for acute kidney injury on chronic kidney disease. Patient presented to the hospital on 07/21/2021 with generalized weakness. He had fallen due to progressive weakness prior to admission. He is currently being treated for covid-19 pneumonia as well as superimposed bacterial pneumonia. He does complain of a productive cough. Blood pressure stable. He has an external catheter. Urine output documented is 1200 mL in the last 24 hours. He is maintained on Lasix 10 mg once daily at this time. He does have significant edema in the lower extremities. Patient has chronic kidney disease stage IIIB with baseline creatinine in the range of 1.5-2 for November 2019. Creatinine this admission was as low as 2.11 and is 2.51 today. No vomiting or diarrhea. Oral intake is poor. Vital signs are stable. HEENT: Head exam is unremarkable. LUNGS: Breath sounds decreased. Scattered rhonchi. HEART: Rate and Rhythm are regular. ABDOMEN: Soft, no distention. EXTREMITITES: 2+ edema. Past Medical History Past Medical History: Coronary Artery Disease (CAD), Cancer, COPD, GERD/Reflux, Hearing Disorder / Deafness, Hyperlipidemia, Osteoarthritis (OA), Pneumonia, Prostate Disorder, Renal Disease, Sleep Apnea/CPAP/BIPAP, Thyroid Disorder Additional Past Medical History / Comment(s): GOUT; not currently using CPAP, see Dr Sanchez H&P, edema left lower leg, bruises easily, hx skin cancer Last Myocardial Infarction Date:: 2001 History of Any Multi-Drug Resistant Organisms: None Reported Past Surgical History: AICD, Coronary Bypass/CABG, Heart Catheterization With Stent, Hernia Repair, Orthopedic Surgery, Pacemaker Additional Past Surgical History / Comment(s): 4 Vessel CABG 2002. 2 STENTS 2001. HAS 2 PINS IN RT ACHILLES. parathyroid surgery, AICD/PACEMAKER, [facility]. 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, recent biopsy left ear, maximus cataracts Past Anesthesia/Blood Transfusion Reactions: No Reported Reaction Date of Last Stent Placement:: UNK Type of Cardiac Device: Permanent Pacemaker, AICD Device Placement Date:: unknown Past Psychological History: No Psychological Hx Reported Past Alcohol Use History: None Reported Past Drug Use History: None Reported - Past Family History Father Family Medical History: Congestive Heart Failure (CHF), Diabetes Mellitus Additional Family Medical History / Comment(s): AT AGEG 66 FROM CHF Mother Family Medical History: COPD Additional Family Medical History / Comment(s): AT AGE FROM ANEURYSM Sister(s) Family Medical History: Cancer Medications and Allergies Home Medications Medication Instructions Recorded Confirmed Type Allopurinol [Zyloprim] 300 mg PO DAILY 07/22/21 07/22/21 History Amiodarone [Cordarone] 200 mg PO DAILY 07/22/21 07/22/21 History Apixaban [Eliquis] 2.5 mg PO BID 07/22/21 07/22/21 History Atorvastatin [Lipitor] 20 mg PO HS 07/22/21 07/22/21 History Cholecalciferol [Vitamin D3 (25 25 mcg PO DAILY 07/22/21 07/22/21 History Mcg = 1000 Iu)] Empagliflozin [Jardiance] 10 mg PO DAILY 07/22/21 07/22/21 History Finasteride [Proscar] 5 mg PO DAILY 07/22/21 07/22/21 History Furosemide [Lasix] 20 mg PO DAILY 07/22/21 07/22/21 History Ipratropium [place] [Atrovent Hfa] 2 puff INHALATION RT-DAILY 07/22/21 07/22/21 History Loratadine [Claritin] 10 mg PO DAILY 07/22/21 07/22/21 History Magnesium Oxide [Mag-Ox] 400 mg PO DAILY 07/22/21 07/22/21 History Metoprolol Succinate [Toprol XL] 25 mg PO DAILY 07/22/21 07/22/21 History Midodrine [ProAmatine] 5 mg PO TID 07/22/21 07/22/21 History Montelukast [Singulair] 10 mg PO DAILY 07/22/21 07/22/21 History Olopatadine HCl [Pataday] 1 drop BOTH EYES DAILY 07/22/21 07/22/21 History Omeprazole [PriLOSEC] 20 mg PO AC-BRKFST 07/22/21 07/22/21 History Tamsulosin [Flomax] 0.4 mg PO BID 07/22/21 07/22/21 History Allergies Allergy/AdvReac Type Severity Reaction Status Date / Time smoke Allergy Dyspnea Uncoded 07/22/21 13:49 Physical Exam Vitals: Vital Signs Temp Pulse Resp BP Pulse Ox 07/30/21 08:00 50 L 16 124/76 94 L 07/30/21 00:19 98.7 F 50 L 20 137/69 96 07/29/21 20:00 50 L 22 140/71 92 L 07/29/21 12:10 98.3 F 51 L 18 135/69 97 Intake and Output 07/29/21 07/30/21 07/30/21 22:59 06:59 14:59 Intake Total 118 Output Total 400 Balance -282 Intake: Oral 118 Output: Urine 400 Other: Voiding Method External Catheter # Voids 2 Results - Lab Results Most recent lab results Calcium 8.1 mg/dL (8.4-10.2) L 07/30/21 05:45 Magnesium 2.3 mg/dL (1.6-2.3) 07/27/21 09:33 07/30/21 05:45 07/30/21 05:45 Assessment and Plan Plan: Assessment: 1. Acute kidney injury secondary to ATN secondary to COVID-19 infection. Also considered for cardiorenal syndrome. Creatinine 2.51 today. 2. Chronic kidney disease stage IIIB with baseline creatinine the range of 1.5- 2 secondary to nephrosclerosis. 3. COVID-19 pneumonia as well as superimposed bacterial pneumonia. On antibiotics. 4. Metabolic acidosis secondary to acute kidney injury. 5. Mild hyperkalemia secondary to acute kidney injury and metabolic acidosis. 6. Fluid overload. Plan: Add IV Lasix 40 mg twice daily. Check urinalysis. Check renal ultrasound. Add oral bicarb. Avoid nephrotoxins. Continue to monitor renal function and urine output. Thank you for the consultation. I will continue to follow the patient with you during his hospital stay.
[2021-07-30 11:35] LABS: Glucose,Whole Blood 169 mg/dL (75-99)
--- NOTE | 2021-07-30 12:34 | US ---
EXAMINATION TYPE: US kidneys/renal and bladder DATE OF EXAM: 07/30/2021 COMPARISON: NONE CLINICAL HISTORY: priscilla. Covid+ with priscilla EXAM MEASUREMENTS: Right Kidney: 8.5 x 3.8 x 4.2 cm Left Kidney: not seen Right Kidney: small in size, cyst seen inferior pole = 1.3 x 1.3 x 1.2cm Left Kidney: not seen due to bowel gas and patients inability to move on their right side Bladder: not seen, pt does have camarena cath There is no evidence for hydronephrosis at this point in time. No nephrolithiasis is seen. The urin mariella bladder is anechoic. Bilateral ureteral jets are seen. IMPRESSION: 1. Diminutive right kidney. 2. Small simple cyst lower pole right kidney.
[2021-07-30] MEDS: KETOTIFEN 0.025% OPHTH DROPS 5 ML BTL BOTH EYES SCH ×2 (12:48→20:54)
[2021-07-30] MEDS: FUROSEMIDE 10 MG/ML 4 ML VIAL IV SCH ×2 (12:49→20:52)
[2021-07-30] MEDS: SODIUM BICARBONATE TAB 650 MG TAB PO SCH ×3 (12:49→22:01)
--- NOTE | 2021-07-30 13:55 | P.PN ---
Subjective Progress Note Date: 07/29/21 Principal diagnosis: Pneumonia Blood stained sputum secondary pneumonia Generalized weakness Fall related to weakness COVID-19 infection GERD BPH Dyslipidemia Coronary artery disease with history of CABG and stent placement 07/29/2021, patient seen eval examined during the rounds labs reviewed medications reviewed, is still short of breath on activity and exertion cough is associated with sputum but slight and now no more hemoptysis is seen, BUN/creatinine is up to 83/2.47, CBC stable, oxygen saturation 97% on 2 L nasal cannula hemodynamic status stable, he remains on IV steroids breathing treatments antibiotics and steroids appeared to be responding well also has COVID-19 infection 07/28/2021, patient seen eval reexamined during the rounds labs reviewed medic ations reviewed still have ongoing cough on however 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, no more hemoptysis seen, Sputum culture no pathologic organism have been seen, patient remains afebrile, with oxygen saturation of 91-92% room air, uterus chest x-ray shows slight improvement in bilateral basal infiltrate, labs reviewed today white cell count within normal limit potassium is 5.7 BUN/creatinine is 77 and 2.4, 07/25/2021, patient seen eval examined during the rounds labs reviewed medications reviewed, patient has intermittent cough and he is producing clear to yellow sputum mixed with intermittent stye streaks of blood, more short of breath on 2 L oxygen, discussed with infectious disease services will start patient on IV steroids antibiotics send sputum for Gram stain and culture 07/24/2021, patient seen eval examined during the rounds overall no significant change in saturation 95% on room air, patient remains on oral steroids Decadron 6 mg daily, tolerating well today's x-ray reviewed some streak-like infiltrate at the bases cannot be excluded or perihilar infiltrate 07/23/2021, patient seen eval examined in follow-up, respiratory status not much change, chest x-ray reviewed possible interstitial pattern cannot be excluded, patient remains on room air as saturation 94% with stable hemodynamics, blood pressure is the 110/60, patient remains on bronchodilator continuation of home medications including liquids along with daily 6 mg of Decadron, patient has been restarted on her midodrine Patient is a 89-year-old male came into the hospital with generalized weakness and fall related to weakness, patient sees Dr. Mullally for primary care activities, cagle denies any night sweats fever or chills denies any chest pain or radiation of pain, no fever no bowel or bladder related problem, patient does have cough with sputum production his labs were significant for a hemoglobin of 12.6, platelet count of 10 7000, BUN/creatinine 56/2.27, glucose is 210, troponin 0.055 0.0 6 AM 0.047, oxygen saturation is 90% to 95% room air improved to, "test came back positive, chest x-ray and rib x-ray stable pacemaker and wires no infiltrate or heart failure identified no pneumothorax, currently patient is treated with bronchodilators continuation of home medications including amiodarone and requests primary History is significant for coronary artery disease, COPD, GERD, deafn ess, dyslipidemia, degenerative joint disease osteoarthritis history of pneumonia and sleep apnea Past surgical history significant for a bypass surgery, cardiac cath and stent placement and hernia repair orthopedic repair history of pacemaker insertion, stents no history of smoking through abuse and substance use Objective - Vital Signs Vital signs: Vital Signs Temp 98.3 F 07/29/21 12:10 Pulse 51 L 07/29/21 12:10 Resp 18 07/29/21 12:10 BP 135/69 07/29/21 12:10 Pulse Ox 97 07/29/21 12:10 Intake & Output 07/28/21 07/29/21 07/29/21 18:59 06:59 18:59 Intake Total 480 Output Total 500 700 Balance -20 -700 Weight 76 kg Intake: Oral 480 Output: Urine 500 700 Other: Voiding Method External Catheter External Catheter # Bowel Movements 1 - Exam - Exam - Constitutional General appearance: average body habitus, cooperative - EENT Eyes: PERRLA Ears: bilateral: normal - Neck Carotids: bilateral: upstroke normal Thyroid: bilateral: normal size - Respiratory Respiratory: bilateral: CTA - Cardiovascular Rhythm: regular Heart sounds: normal: S1, S2 - Gastrointestinal General gastrointestinal: soft - Neurologic Neurologic: CNII-XII intact - Musculoskeletal Musculoskeletal: gait normal, generalized weakness, strength equal bilaterally - Psychiatric Psychiatric: A&O x's 3, appropriate affect, intact judgment & insight - Labs CBC & Chem 7: 07/30/21 05:45 07/30/21 05:45 Labs: Abnormal Lab Results - Last 24 Hours (Table) 07/28/21 07/28/21 07/29/21 Range/Units 16:44 20:46 06:21 RBC (4.30-5.90) m/uL Hgb (13.0-17.5) gm/dL RDW (11.5-15.5) % Plt Count (150-450) k/uL Lymphocytes # (1.0-4.8) k/uL Potassium (3.5-5.1) mmol/L Chloride (98-107) mmol/L Carbon Dioxide (22-30) mmol/L BUN (9-20) mg/dL Creatinine (0.66-1.25) mg/dL Glucose (74-99) mg/dL POC Glucose (mg/dL) 197 H 139 H 120 H (75-99) mg/dL Calcium (8.4-10.2) mg/dL ALT (4-49) U/L Total Protein (6.3-8.2) g/dL Albumin (3.5-5.0) g/dL 07/29/21 07/29/21 07/29/21 Range/Units 08:16 08:16 11:43 RBC 4.10 L (4.30-5.90) m/uL Hgb 12.7 L (13.0-17.5) gm/dL RDW 15.6 H (11.5-15.5) % Plt Count 136 L (150-450) k/uL Lymphocytes # 0.3 L (1.0-4.8) k/uL Potassium 5.3 H (3.5-5.1) mmol/L Chloride 113 H (98-107) mmol/L Carbon Dioxide 16 L (22-30) mmol/L BUN 83 H (9-20) mg/dL Creatinine 2.47 H (0.66-1.25) mg/dL Glucose 133 H (74-99) mg/dL POC Glucose (mg/dL) 154 H (75-99) mg/dL Calcium 8.1 L (8.4-10.2) mg/dL ALT 53 H (4-49) U/L Total Protein 5.5 L (6.3-8.2) g/dL Albumin 2.8 L (3.5-5.0) g/dL Microbiology - Last 24 Hours (Table) 07/26/21 06:30 Gram Stain - Final Sputum Sputum Culture - Final Assessment and Plan Assessment: Likely gram-negative pneumonia/mixed bacterial pneumonia Intermittent hemoptysis, improving Generalized weakness Fall related to weakness Acute on chronic kidney injury COVID-19 infection GERD BPH Dyslipidemia Coronary artery disease with history of CABG and stent placement Plan: Zosyn 3.375 every 8 hours, adjust dose per renal functions will defer to pharmacy services IV steroids to be reduced to every 12 next 24 hours Reviewed results of sputum for Gram stain and culture Continue deep breathing sense incentive spirometry Long-term prognosis poor Time with Patient: Greater than 30
--- NOTE | 2021-07-30 13:58 | P.PN ---
Subjective Progress Note Date: 07/30/21 Principal diagnosis: Pneumonia Blood stained sputum secondary pneumonia Generalized weakness Fall related to weakness COVID-19 infection GERD BPH Dyslipidemia Coronary artery disease with history of CABG and stent placement 07/30/2021, patient seen eval examined during the rounds labs reviewed medications reviewed care plan discussed, respiratory status remains stable in termittently patient has been on room air as well, cough is associated with sputum which is light in color and appearance no more hemoptysis seen, today's labs are reviewed white cell count is 7000 hemoglobin and hematocrit 12 and 39, platelets are 1 46,000, potassium is 5.3 showing a downward trend BUN/creatinine elevated but remains stable 82/2.51, patient back on Hexadrol off of IV steroids 07/29/2021, patient seen eval examined during the rounds labs reviewed medications reviewed, is still short of breath on activity and exertion cough is associated with sputum but slight and now no more hemoptysis is seen, BUN/creatinine is up to 83/2.47, CBC stable, oxygen saturation 97% on 2 L nasal cannula hemodynamic status stable, he remains on IV steroids breathing treatments antibiotics and steroids appeared to be responding well also has COVID-19 infection 07/28/2021, patient seen eval reexamined during the rounds labs reviewed medications reviewed still have ongoing cough on however 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, no more hemoptysis seen, Sputum culture no pathologic organism have been seen, patient remains afebrile, with oxygen saturation of 91-92% room air, uterus chest x-ray shows slight improvement in bilateral basal infiltrate, labs reviewed today white cell count within normal limit potassium is 5.7 BUN/creatinine is 77 and 2.4, 07/25/2021, patient seen eval examined during the rounds labs reviewed medications reviewed, patient has intermittent cough and he is producing clear to yellow sputum mixed with intermittent stye streaks of blood, more short of breath on 2 L oxygen, discussed with infectious disease services will start patient on IV steroids antibiotics send sputum for Gram stain and culture 07/24/2021, patient seen eval examined during the rounds overall no significant change in saturation 95% on room air, patient remains on oral steroids Decadron 6 mg daily, tolerating well today's x-ray reviewed some streak-like infiltrate at the bases cannot be excluded or perihilar infiltrate 07/23/2021, patient seen eval examined in follow-up, respiratory status not much change, chest x-ray reviewed possible interstitial pattern cannot be excluded, patient remains on room air as saturation 94% with stable hemodynamics, blood pressure is the 110/60, patient remains on bronchodilator continuation of home medications including liquids along with daily 6 mg of Decadron, patient has been restarted on her midodrine Patient is a 89-year-old male came into the hospital with generalized weakness and fall related to weakness, patient sees Dr. Yadav for primary care activities, cagle denies any night sweats fever or chills denies any chest pain or radiation of pain, no fever no bowel or bladder related problem, patient does have cough with sputum production his labs were significant for a hemoglobin of 12.6, platelet count of 10 7000, BUN/creatinine 56/2.27, glucose is 210, troponin 0.055 0.0 6 AM 0.047, oxygen saturation is 90% to 95% room air improved to, "test came back positive, chest x-ray and rib x-ray stable pacemaker and wires no infiltrate or heart failure identified no pneumothorax, currently patient is treated with bronchodilators continuation of home medications including amiodarone and requests primary History is significant for coronary artery disease, COPD, GERD, deafness, dyslipidemia, degenerative joint disease osteoarthritis history of pneumonia and sleep apnea Past surgical history significant for a bypass surgery, cardiac cath and stent placement and hernia repair orthopedic repair history of pacemaker insertion, stents no history of smoking through abuse and substance use Objective - Vital Signs Vital signs: Vital Signs Temp 98.7 F 07/30/21 00:19 Pulse 50 L 07/30/21 08:00 Resp 16 07/30/21 08:00 BP 124/76 07/30/21 08:00 Pulse Ox 94 L 07/30/21 08:00 Intake & Output 07/29/21 07/30/21 07/30/21 18:59 06:59 18:59 Intake Total 236 236 Output Total 400 250 Balance -164 -14 Weight 76 kg Intake: Oral 236 236 Output: Urine 400 250 Other: Voiding Method External Catheter External Catheter External Catheter # Voids 2 - Exam - Exam - Constitutional General appearance: average body habitus, cooperative - EENT Eyes: PERRLA Ears: bilateral: normal - Neck Carotids: bilateral: upstroke normal Thyroid: bilateral: normal size - Respiratory Respiratory: bilateral: CTA - Cardiovascular Rhythm: regular Heart sounds: normal: S1, S2 - Gastrointestinal General gastrointestinal: soft - Neurologic Neurologic: CNII-XII intact - Musculoskeletal Musculoskeletal: gait normal, generalized weakness, strength equal bilaterally - Psychiatric Psychiatric: A&O x's 3, appropriate affect, intact judgment & insight - Labs CBC & Chem 7: 07/30/21 05:45 07/30/21 05:45 Labs: Abnormal Lab Results - Last 24 Hours (Table) 07/29/21 07/29/21 07/30/21 Range/Units 16:48 20:32 05:45 RBC 3.93 L (4.30-5.90) m/uL Hgb 12.3 L (13.0-17.5) gm/dL MCV 100.6 H (80.0-100.0) fL RDW 15.7 H (11.5-15.5) % Plt Count 146 L (150-450) k/uL Lymphocytes # 0.3 L (1.0-4.8) k/uL Potassium (3.5-5.1) mmol/L Chloride (98-107) mmol/L Carbon Dioxide (22-30) mmol/L BUN (9-20) mg/dL Creatinine (0.66-1.25) mg/dL Glucose (74-99) mg/dL POC Glucose (mg/dL) 204 H 201 H (75-99) mg/dL Calcium (8.4-10.2) mg/dL Total Protein (6.3-8.2) g/dL Albumin (3.5-5.0) g/dL 07/30/21 07/30/21 07/30/21 Range/Units 05:45 06:16 11:33 RBC (4.30-5.90) m/uL Hgb (13.0-17.5) gm/dL MCV (80.0-100.0) fL RDW (11.5-15.5) % Plt Count (150-450) k/uL Lymphocytes # (1.0-4.8) k/uL Potassium 5.3 H (3.5-5.1) mmol/L Chloride 115 H (98-107) mmol/L Carbon Dioxide 17 L (22-30) mmol/L BUN 82 H (9-20) mg/dL Creatinine 2.51 H (0.66-1.25) mg/dL Glucose 133 H (74-99) mg/dL POC Glucose (mg/dL) 153 H 169 H (75-99) mg/dL Calcium 8.1 L (8.4-10.2) mg/dL Total Protein 5.3 L (6.3-8.2) g/dL Albumin 2.6 L (3.5-5.0) g/dL Assessment and Plan Assessment: Likely gram-negative pneumonia/mixed bacterial pneumonia Intermittent hemoptysis, improving Generalized weakness Fall related to weakness Acute on chronic kidney injury COVID-19 infection GERD BPH Dyslipidemia Coronary artery disease with history of CABG and stent placement Plan: Zosyn for another 2-3 days Continue Hexadrol Reviewed results of sputum for Gram stain and culture Continue deep breathing sense incentive spirometry Long-term prognosis poor Time with Patient: Greater than 30
--- NOTE | 2021-07-30 15:15 | PN ---
PROGRESS NOTE 89-year-old white male. His breathing is slowly better and oral appetite is fairly improved. He has some worsening renal function and some third-spacing of fluids. Consult renal physician who recommended IV Lasix be given 40 mg b.i.d. and possible cardiorenal syndrome. Creatinine is 2.5, normal is 1.5 to 2. He has chronic kidney disease stage 3B, Covid 19 pneumonia, metabolic acidosis, hyperkalemia, delirium, dementia, delirium secondary to Covid, Covid encephalopathy. We are going to add oral bicarb. Ultrasound of the kidneys showed no significant hydronephrosis. Lungs clear. Cardiovascular S1, S2. Abdomen is distended. Psych: Alert and oriented x2. Plans as mentioned above. Continue with IV Lasix once cleared by renal physician and Pulmonary. Possibly get him into a rehab center in [facility] under Dr. Dg Yadav's care. Prognosis guarded. MMODL / IJN: [id number] /
[2021-07-30 16:37] LABS: Glucose,Whole Blood 186 mg/dL (75-99)
[2021-07-30] MEDS: ATORVASTATIN 20 MG TAB PO SCH (20:53)
[2021-07-30] MEDS: CHOLECALCIFEROL 25 MCG (1000 IU) TABLET PO SCH (20:53)
[2021-07-30] MEDS: METOPROLOL SUCCINATE (ER) 25 MG TAB.ER.24H PO SCH (20:53)
[2021-07-30] MEDS: AMIODARONE 200 MG TAB PO SCH (20:53)
[2021-07-30] MEDS: MONTELUKAST 10 MG TAB PO SCH (20:53)
[2021-07-30 20:54] LABS: Glucose,Whole Blood 187 mg/dL (75-99)
--- NOTE | 2021-07-30 22:33 | PN ---
PROGRESS NOTE DATE OF SERVICE: 07/30/2021 REASON FOR FOLLOWUP VISIT: Covid 19/bacterial pneumonia. INTERVAL HISTORY: Patient is afebrile, has been breathing comfortably on room air. The patient denies having any chest pain. No shortness of breath. No worsening cough. No abdominal pain. No diarrhea. PHYSICAL EXAMINATION: Blood pressure 122/66, pulse of 50, temperature 98. He is 94% on room air. General description is an elderly male up in the bed in no distress. Respiratory system: Unlabored breathing, decreased intensity of breath sounds. No wheeze. Heart S1, S2. Regular rate and rhythm. Abdomen soft, no tenderness. LABS: Hemoglobin is 12.8, white count 7.0. BUN of 82, creatinine is 2.51. DIAGNOSTIC IMPRESSION AND PLAN: Patient admitted to the hospital with pneumonia. Initial diagnoses of Covid 19 and subsequent concern for possible secondary bacterial. Sputum has been negative for resistant pathogen. Antibiotic will be adjusted to oral Augmentin and course will be monitored closely. Continue supportive care. MMODL / IJN: [id number] /
[2021-07-31] MEDS: FUROSEMIDE 10 MG TAB PO SCH (06:59)
[2021-07-31 07:17] LABS: Glucose,Whole Blood 117 mg/dL (75-99)
[2021-07-31] MEDS: INSULIN ASPART (NovoLOG) 100 UNIT/ML VIAL SQ SCH ×4 (07:43→20:40)
[2021-07-31] MEDS: dexAMETHasone 2 MG TAB PO SCH (07:46)
[2021-07-31] MEDS: guaiFENesin 600 MG TABLET.ER PO SCH ×2 (07:46→20:41)
[2021-07-31] MEDS: BENZONATATE 100 MG CAP PO SCH ×3 (07:46→20:41)
[2021-07-31] MEDS: PANTOPRAZOLE 40 MG TABLET PO SCH (07:46)
[2021-07-31] MEDS: TAMSULOSIN 0.4 MG CAP.ER.24H PO SCH (07:46)
[2021-07-31] MEDS: MIDODRINE 5 MG TAB PO SCH ×3 (07:46→16:44)
[2021-07-31] MEDS: SODIUM BICARBONATE TAB 650 MG TAB PO SCH ×3 (07:46→20:41)
[2021-07-31] MEDS: APIXABAN 2.5 MG TABLET PO SCH ×2 (07:46→20:41)
[2021-07-31] MEDS: AMOXIC-POT CLAV 500-125 MG 1 EACH TAB PO SCH ×2 (07:47→20:41)
[2021-07-31] MEDS: ASCORBIC ACID 500 MG TAB PO SCH (07:47)
[2021-07-31] MEDS: FINASTERIDE 5 MG TAB PO SCH (07:47)
[2021-07-31] MEDS: ZINC SULFATE 220 MG CAP PO SCH (07:47)
[2021-07-31] MEDS: FUROSEMIDE 10 MG/ML 4 ML VIAL IV SCH ×2 (07:47→20:40)
[2021-07-31] MEDS: allopurinoL 300 MG TAB PO SCH (07:47)
[2021-07-31 08:30] LABS: Calcium 7.9 mg/dL (8.4-10.2); Magnesium 2.5 mg/dL (1.6-2.3); Potassium 4.9 mmol/L (3.5-5.1)
[2021-07-31] MEDS: ALBUTEROL HFA INHALER INHALATION PRN ×4 (08:53→19:56)
[2021-07-31] MEDS: KETOTIFEN 0.025% OPHTH DROPS 5 ML BTL BOTH EYES SCH ×2 (09:30→20:40)
--- NOTE | 2021-07-31 09:48 | P.PN ---
Subjective Progress Note Date: 07/31/21 Principal diagnosis: Pneumonia Blood stained sputum secondary pneumonia Generalized weakness Fall related to weakness COVID-19 infection GERD BPH Dyslipidemia Coronary artery disease with history of CABG and stent placement 07/31/2021, patient seen eval examined during the rounds labs reviewed medications reviewed care plan discussed, respiratory status continued to be s table, patient now is on room air breathing comfortably, feet, does have cough sputum is light yellow 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, PERRL no hemoptysis has been seen, patient is off of IV steroids for now on Decadron for COVID-19 pneumonia inflammation, she remains on broad-spectrum antibiotics with Zosyn for bilateral basal pneumonia which clinically has been improving, but however still needs it, 07/30/2021, patient seen eval examined during the rounds labs reviewed medications reviewed care plan discussed, respiratory status remains stable intermittently patient has been on room air as well, cough is associated with sputum which is light in color and appearance no more hemoptysis seen, today's labs are reviewed white cell count is 7000 hemoglobin and hematocrit 12 and 39, platelets are 1 46,000, potassium is 5.3 showing a downward trend BUN/creatinine elevated but remains stable 82/2.51, patient back on Hexadrol off of IV steroids 07/29/2021, patient seen eval examined during the rounds labs reviewed medications reviewed, is still short of breath on activity and exertion cough is associated with sputum but slight and now no more hemoptysis is seen, BUN/creatinine is up to 83/2.47, CBC stable, oxygen saturation 97% on 2 L nasal cannula hemodynamic status stable, he remains on IV steroids breathing treatments antibiotics and steroids appeared to be responding well also has COVID-19 infection 07/28/2021, patient seen eval reexamined during the rounds labs reviewed medications reviewed still have ongoing cough on however 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, no more hemoptysis seen, Sputum culture no pathologic organism have been seen, patient remains afebrile, with oxygen saturation of 91-92% room air, uterus chest x-ray shows slight improvement in bilateral basal infiltrate, labs reviewed today white cell count within normal limit potassium is 5.7 BUN/creatinine is 77 and 2.4, 07/25/2021, patient seen eval examined during the rounds labs reviewed medications reviewed, patient has intermittent cough and he is producing clear to yellow sputum mixed with intermittent stye streaks of blood, more short of breath on 2 L oxygen, discussed with infectious disease services will start patient on IV steroids antibiotics send sputum for Gram stain and culture 07/24/2021, patient seen eval examined during the rounds overall no significant change in saturation 95% on room air, patient remains on oral steroids Decadron 6 mg daily, tolerating well today's x-ray reviewed some streak-like infiltrate at the bases cannot be excluded or perihilar infiltrate 07/23/2021, patient seen eval examined in follow-up, respiratory status not much change, chest x-ray reviewed possible interstitial pattern cannot be excluded, patient remains on room air as saturation 94% with stable hemodynamics, blood pressure is the 110/60, patient remains on bronchodilator continuation of home medications including liquids along with daily 6 mg of Decadron, patient has been restarted on her midodrine Patient is a 89-year-old male came into the hospital with generalized weakness and fall related to weakness, patient sees Dr. Yadav for primary care activities, cagle denies any night sweats fever or chills denies any chest pain or radiation of pain, no fever no bowel or bladder related problem, patient does have cough with sputum production his labs were significant for a hemoglobin of 12.6, platelet count of 10 7000, BUN/creatinine 56/2.27, glucose is 210, troponin 0.055 0.0 6 AM 0.047, oxygen saturation is 90% to 95% room air improved to, "test came back positive, chest x-ray and rib x-ray stable pacemaker and wires no infiltrate or heart failure identified no pneumothorax, currently pat ient is treated with bronchodilators continuation of home medications including amiodarone and requests primary History is significant for coronary artery disease, COPD, GERD, deafness, dyslipidemia, degenerative joint disease osteoarthritis history of pneumonia and sleep apnea Past surgical history significant for a bypass surgery, cardiac cath and stent placement and hernia repair orthopedic repair history of pacemaker insertion, stents no history of smoking through abuse and substance use Objective - Vital Signs Vital signs: Vital Signs Temp 97.6 F 07/31/21 06:54 Pulse 51 L 07/31/21 06:54 Resp 20 07/31/21 06:54 BP 104/62 07/31/21 06:54 Pulse Ox 85 L 11/25/21 06:54 Intake & Output 07/30/21 07/31/21 07/31/21 18:59 06:59 18:59 Intake Total 476 400 Output Total 250 1400 Balance 226 -1000 Intake: Oral 476 400 Output: Urine 250 1400 Other: Voiding Method External Catheter Diaper External Catheter # Bowel Movements 0 0 - Exam - Exam - Constitutional General appearance: average body habitus, cooperative - EENT Eyes: PERRLA Ears: bilateral: normal - Neck Carotids: bilateral: upstroke normal Thyroid: bilateral: normal size - Respiratory Respiratory: bilateral: CTA - Cardiovascular Rhythm: regular Heart sounds: normal: S1, S2 - Gastrointestinal General gastrointestinal: soft - Neurologic Neurologic: CNII-XII intact - Musculoskeletal Musculoskeletal: gait normal, generalized weakness, strength equal bilaterally - Psychiatric Psychiatric: A&O x's 3, appropriate affect, intact judgment & insight - Labs CBC & Chem 7: 07/30/21 05:45 07/31/21 07:34 Labs: Abnormal Lab Results - Last 24 Hours (Table) 07/30/21 07/30/21 07/30/21 Range/Units 11:33 16:35 20:52 Chloride (98-107) mmol/L Carbon Dioxide (22-30) mmol/L BUN (9-20) mg/dL Creatinine (0.66-1.25) mg/dL Glucose (74-99) mg/dL POC Glucose (mg/dL) 169 H 186 H 187 H (75-99) mg/dL Calcium (8.4-10.2) mg/dL Magnesium (1.6-2.3) mg/dL 07/31/21 07/31/21 Range/Units 07:16 07:34 Chloride 113 H (98-107) mmol/L Carbon Dioxide 17 L (22-30) mmol/L BUN 88 H (9-20) mg/dL Creatinine 2.64 H (0.66-1.25) mg/dL Glucose 121 H (74-99) mg/dL POC Glucose (mg/dL) 117 H (75-99) mg/dL Calcium 7.9 L (8.4-10.2) mg/dL Magnesium 2.5 H (1.6-2.3) mg/dL Assessment and Plan Assessment: Likely gram-negative pneumonia/mixed bacterial pneumonia Intermittent hemoptysis, improving Generalized weakness Fall related to weakness Acute on chronic kidney injury COVID-19 infection GERD BPH Dyslipidemia Coronary artery disease with history of CABG and stent placement Plan: Zosyn for another 2-3 days Continue Hexadrol Reviewed results of sputum for Gram stain and culture Continue deep breathing sense incentive spirometry PT OT evaluation Long-term prognosis poor Time with Patient: Greater than 30
[2021-07-31 11:47] LABS: Glucose,Whole Blood 158 mg/dL (75-99)
[2021-07-31 16:39] LABS: Glucose,Whole Blood 182 mg/dL (75-99)
--- NOTE | 2021-07-31 17:56 | P.PN ---
Subjective Progress Note Date: 07/31/21 Follow-up for acute kidney injury. Objective - Vital Signs Vital signs: Vital Signs Temp 96.7 F L 07/31/21 13:47 Pulse 50 L 07/31/21 13:47 Resp 17 07/31/21 13:47 BP 130/68 07/31/21 13:47 Pulse Ox 90 L 07/31/21 13:47 Intake & Output 07/30/21 07/31/21 07/31/21 18:59 06:59 18:59 Intake Total 476 400 Output Total 250 1400 650 Balance 226 -1000 -650 Intake: Oral 476 400 Output: Urine 250 1400 650 Other: Voiding Method External Catheter Diaper Diaper External Catheter External Catheter # Bowel Movements 0 1 - Exam Refer to primary team exam, COVID-19 isolation - Labs CBC & Chem 7: 07/30/21 05:45 07/31/21 07:34 Labs: Abnormal Lab Results - Last 24 Hours (Table) 07/30/21 07/31/21 07/31/21 Range/Units 20:52 07:16 07:34 Chloride 113 H (98-107) mmol/L Carbon Dioxide 17 L (22-30) mmol/L BUN 88 H (9-20) mg/dL Creatinine 2.64 H (0.66-1.25) mg/dL Glucose 121 H (74-99) mg/dL POC Glucose (mg/dL) 187 H 117 H (75-99) mg/dL Calcium 7.9 L (8.4-10.2) mg/dL Magnesium 2.5 H (1.6-2.3) mg/dL 07/31/21 07/31/21 Range/Units 11:45 16:37 Chloride (98-107) mmol/L Carbon Dioxide (22-30) mmol/L BUN (9-20) mg/dL Creatinine (0.66-1.25) mg/dL Glucose (74-99) mg/dL POC Glucose (mg/dL) 158 H 182 H (75-99) mg/dL Calcium (8.4-10.2) mg/dL Magnesium (1.6-2.3) mg/dL Assessment and Plan Assessment: 1 acute kidney injury secondary to COVID-19 ATN. #2 chronic kidney disease stage IIIB with a baseline creatinine of 1.5-2.2 MG per DL. #3 metabolic acidosis #4 mild hyperkalemia improved #5 Covid 19 pneumonia Plan: Renal function stable. Continue with current diuretic regimen. No obstruction on renal ultrasound. Obtain urine analysis and urine electrolytes.
--- NOTE | 2021-07-31 19:23 | P.PN ---
Progress Note - Text Progress Note Date: 07/31/21 Presenting complaint: Weakness Hospital course: Patient came to the hospital with generalized weakness and fall from weakness. He did have a cough and sputum production. Patient tested positive for COVID-19 infection. July 31: Patient laying in bed. Has a cough. Very little phlegm. Dec reased appetite. A bit tired Review of systems: Was done for constitutional, cardiovascular, GI, pulmonary. relevant finding as above Active Medications Acetaminophen (Acetaminophen Tab 325 Mg Tab) 650 mg PO Q6HR PRN PRN Reason: Mild Pain or Fever > 100.5 Last Admin: 07/22/21 13:49 Dose: 650 mg Documented by: Albuterol Sulfate (Albuterol Hfa Inhaler) 2 puff INHALATION RT-QID PRN PRN Reason: Shortness Of Breath Or Wheezing Last Admin: 07/31/21 16:31 Dose: 2 puff Documented by: Allopurinol (Allopurinol 300 Mg Tab) 300 mg PO DAILY [facility] Last Admin: 07/31/21 07:47 Dose: 300 mg Documented by: Amiodarone HCl (Amiodarone 200 Mg Tab) 200 mg PO [facility] Last Admin: 07/30/21 20:53 Dose: 200 mg Documented by: Amoxicillin/Clavulanate Potassium (Amoxic-Pot Clav 500-125 Mg 1 Each Tab) 1 each PO BID [facility] Last Admin: 07/31/21 07:47 Dose: 1 each Documented by: Apixaban (Apixaban 2.5 Mg Tablet) 2.5 mg PO BID [facility]; Protocol Last Admin: 07/31/21 07:46 Dose: 2.5 mg Documented by: Ascorbic Acid (Ascorbic Acid 500 Mg Tab) 1,000 mg PO DAILY [facility] Last Admin: 07/31/21 07:47 Dose: 1,000 mg Documented by: Atorvastatin Calcium (Atorvastatin 20 Mg Tab) 20 mg PO [facility] Last Admin: 07/30/21 20:53 Dose: 20 mg Documented by: Benzonatate (Benzonatate 100 Mg Cap) 100 mg PO TID [facility] Last Admin: 07/31/21 16:45 Dose: 100 mg Documented by: Cholecalciferol (Cholecalciferol 25 Mcg (1000 Iu) Tablet) 25 mcg PO [facility] Last Admin: 07/30/21 20:53 Dose: 25 mcg Documented by: Dexamethasone (Dexamethasone 2 Mg Tab) 6 mg PO DAILY [facility] Last Admin: 07/31/21 07:46 Dose: 6 mg Documented by: Finasteride (Finasteride 5 Mg Tab) 5 mg PO DAILY [facility] Last Admin: 07/31/21 07:47 Dose: 5 mg Documented by: Fluvoxamine Maleate (Fluvoxamine 50 Mg Tab) 100 mg PO [facility] Last Admin: 07/30/21 22:01 Dose: 100 mg Documented by: Furosemide (Furosemide 10 Mg/Ml 4 Ml Vial) 40 mg IV Q12HR [facility] Last Admin: 07/31/21 07:47 Dose: 40 mg Documented by: Guaifenesin (Guaifenesin 600 Mg Tablet.Er) 600 mg PO Q12HR [facility] Last Admin: 07/31/21 07:46 Dose: 600 mg Documented by: Insulin Aspart (Insulin Aspart (Novolog) 100 Unit/Ml Vial) 0 unit SQ [facility]; Protocol Last Admin: 07/31/21 16:45 Dose: 2 unit Documented by: Ketotifen Fumarate (Ketotifen 0.025% Ophth Drops 5 Ml Btl) 1 drops BOTH EYES BID [facility] Last Admin: 07/31/21 09:30 Dose: Not Given Documented by: Loratadine (Loratadine 10 Mg Tab) 10 mg PO DAILY PRN PRN Reason: Allergy Symptoms Metoprolol Succinate (Metoprolol Succinate (Er) 25 Mg Tab.Er.24h) 25 mg PO [facility] Last Admin: 07/30/21 20:53 Dose: 25 mg Documented by: Midodrine (Midodrine 5 Mg Tab) 5 mg PO AC-TID [facility] Last Admin: 07/31/21 16:44 Dose: 5 mg Documented by: Montelukast Sodium (Montelukast 10 Mg Tab) 10 mg PO [facility] Last Admin: 07/30/21 20:53 Dose: 10 mg Documented by: Naloxone HCl (Naloxone 0.4 Mg/Ml 1 Ml Vial) 0.2 mg IV Q2M PRN PRN Reason: Opioid Reversal Pantoprazole Sodium (Pantoprazole 40 Mg Tablet) 40 mg PO AC-BRKFST [facility] Last Admin: 07/31/21 07:46 Dose: 40 mg Documented by: Sodium Bicarbonate (Sodium Bicarbonate Tab 650 Mg Tab) 650 mg PO TID [facility] Last Admin: 07/31/21 16:45 Dose: 650 mg Documented by: Tamsulosin HCl (Tamsulosin 0.4 Mg Cap.Er.24h) 0.4 mg PO DAILY [facility] Last Admin: 07/31/21 07:46 Dose: 0.4 mg Documented by: Zinc Sulfate (Zinc Sulfate 220 Mg Cap) 220 mg PO DAILY [facility] Last Admin: 07/31/21 07:47 Dose: 220 mg Documented by: On examination: VITAL SIGNS: 96.7, 50, 17, 130/68, 90% on room air GENERAL APPEARANCE: Laying in bed, awake, tired HEENT: Normal external appearance of nose and ear. Oral cavity normal EYES: Pupils equal. Conjunctiva normal. NECK: JVD not raised. Mass not palpable. RESPIRATORY: Respiratory effort increased. Lungs decreased breath sounds CARDIOVASCULAR: First and second sounds normal. No edema. ABDOMEN: Soft. Liver and spleen not palpable. No tenderness. No mass palpable. PSYCHIATRY: Alert and oriented x3. Mood and affect normal. INVESTIGATIONS, reviewed in the clinical context: Sodium 138 potassium 4.9 BUN 88 creatinine 2.64 White count 17 hemoglobin 12.3 platelets 146 Ultrasound kidney bladder: Diminutive right kidney Chest x-ray: Infiltrates Assessment and plan: -COVID-19 pneumonia with secondary infection possible bacterial. Dexamethasone and Augmentin -CAD with stent -Persistent atrial fibrillation Amiodarone 200 mg daily at bedtime. Toprol-XL 25 mg at bedtime eliquis 2.5 mg twice a day -COPD Singulair 10 mg daily at bedtime -GERD Protonix 40 mg daily -Hyperlipidemia Lipitor 20 mg daily at bedtime -Essential hypertension Toprol-XL 25 mg daily at bedtime -Primary osteoarthritis Pain medications as needed -Obstructive sleep apnea does not use CPAP -AICD Telemetry -BPH Flomax 0.4 mg daily. Proscar 5 mg daily Patient currently Zithromax. Other medications to continue. Follow with pulmonary. Check pro-calcitonin. D-dimer.
[2021-07-31 20:27] LABS: Glucose,Whole Blood 206 mg/dL (75-99)
[2021-07-31] MEDS: ATORVASTATIN 20 MG TAB PO SCH (20:41)
[2021-07-31] MEDS: MONTELUKAST 10 MG TAB PO SCH (20:41)
[2021-07-31] MEDS: METOPROLOL SUCCINATE (ER) 25 MG TAB.ER.24H PO SCH (20:41)
[2021-07-31] MEDS: CHOLECALCIFEROL 25 MCG (1000 IU) TABLET PO SCH (20:41)
[2021-07-31] MEDS: AMIODARONE 200 MG TAB PO SCH (20:42)
[2021-08-01 02:46] LABS: Appearance,Urine Clear (Clear); Bilirubin,Urine Negative (Negative); Blood,Urine Negative (Negative); Color,Urine Light Yellow; Glucose,Urine (UA) Negative (Negative); Ketones,Urine Negative (Negative); Leukocyte Esterase,Urine Negative (Negative); Nitrite,Urine Negative (Negative); Protein,Urine Negative (Negative); Specific Gravity,Urine 1.009 (1.001-1.035); Urobilinogen,Urine <2.0 mg/dL (<2.0)
[2021-08-01 07:02] LABS: Glucose,Whole Blood 135 mg/dL (75-99)
[2021-08-01] MEDS: INSULIN ASPART (NovoLOG) 100 UNIT/ML VIAL SQ SCH ×4 (08:57→21:40)
--- NOTE | 2021-08-01 09:01 | PN ---
PROGRESS NOTE DATE OF SERVICE: 07/31/2021 REASON FOR FOLLOWUP: Pneumonia. INTERVAL HISTORY: Patient is afebrile. The patient is currently breathing comfortably. The patient denies any chest pain, shortness of breath. He did have a cough, not bringing up any sputum. No abdominal pain. Did have some diarrhea. EXAMINATION: Blood pressure 124/73, pulse of 50, temperature 97.5. He is 94%. General description is an elderly male lying in bed in no distress. Respiratory system: Unlabored breathing. Decreased intensity. No wheeze. Heart S1, S2 regular rate and rhythm. Abdomen soft, no tenderness. LABS: BUN of 88, creatinine is 2.64. Sputum has been negative. DIAGNOSTIC IMPRESSION AND PLAN: Patient with pneumonia with admission to hospital with initial positive for Covid 19. Out of the window, not a candidate for Remdesivir. Subsequently, concern for possible gram-negative pneumonia, has been continued on Zosyn. Switched to Augmentin as sputum was negative. diarrhea could be related to the antibiotic C diff. We will add Questran for symptomatic relief and monitor clinical course closely. MMODL / IJN: [id number] /
[2021-08-01] MEDS: TAMSULOSIN 0.4 MG CAP.ER.24H PO SCH (09:03)
[2021-08-01] MEDS: MIDODRINE 5 MG TAB PO SCH ×3 (09:03→17:12)
[2021-08-01] MEDS: APIXABAN 2.5 MG TABLET PO SCH ×2 (09:03→21:41)
[2021-08-01] MEDS: ASCORBIC ACID 500 MG TAB PO SCH (09:03)
[2021-08-01] MEDS: PANTOPRAZOLE 40 MG TABLET PO SCH (09:03)
[2021-08-01] MEDS: SODIUM BICARBONATE TAB 650 MG TAB PO SCH ×3 (09:03→21:41)
[2021-08-01] MEDS: BENZONATATE 100 MG CAP PO SCH ×3 (09:03→21:41)
[2021-08-01] MEDS: allopurinoL 300 MG TAB PO SCH (09:03)
[2021-08-01] MEDS: ZINC SULFATE 220 MG CAP PO SCH (09:03)
[2021-08-01] MEDS: dexAMETHasone 2 MG TAB PO SCH (09:03)
[2021-08-01] MEDS: guaiFENesin 600 MG TABLET.ER PO SCH ×2 (09:03→21:41)
[2021-08-01] MEDS: KETOTIFEN 0.025% OPHTH DROPS 5 ML BTL BOTH EYES SCH ×2 (09:04→21:42)
[2021-08-01] MEDS: AMOXIC-POT CLAV 500-125 MG 1 EACH TAB PO SCH ×2 (09:04→21:41)
[2021-08-01] MEDS: FUROSEMIDE 10 MG/ML 4 ML VIAL IV SCH (09:07)
[2021-08-01] MEDS: FINASTERIDE 5 MG TAB PO SCH (09:07)
--- NOTE | 2021-08-01 09:23 | P.PN ---
Subjective Progress Note Date: 08/01/21 Principal diagnosis: Pneumonia Blood stained sputum secondary pneumonia Generalized weakness Fall related to weakness COVID-19 infection GERD BPH Dyslipidemia Coronary artery disease with history of CABG and stent placement 08/01/2021, patient seen and evaluated examined during the rounds labs reviewed medications reviewed care plan discussed with the staff and patient at length, hemodynamic status stable however blood pressure slightly high, just received his medications from this morning, intermittent cough is present sputum is mucoid thick, patient currently on 2 L oxygen, independently has been going back and forth in room air oxygen, patient has been switched to oral Augmentin by primary service, remains on direct oral anticoagulant, patient lives by himself at home, extremely weak and requires support to stand currently in the process of being evaluated for placement ECF for short-term rehab 07/31/2021, patient seen eval examined during the rounds labs reviewed medications reviewed care plan discussed, respiratory status continued to be stable, patient now is on room air breathing comfortably, feet, does have cough sputum is light yellow 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, PERRL no hemoptysis has been seen, patient is off of IV steroids for now on Decadron for COVID-19 pneumonia inflammation, she remains on broad-spectrum antibiotics with Zosyn for bilateral basal pneumonia which clinically has been improving, but however still needs it, 07/30/2021, patient seen eval examined during the rounds labs reviewed medications reviewed care plan discussed, respiratory status remains stable intermittently patient has been on room air as well, cough is associated with sputum which is light in color and appearance no more hemoptysis seen, today's labs are reviewed white cell count is 7000 hemoglobin and hematocrit 12 and 39, platelets are 1 46,000, potassium is 5.3 showing a downward trend BUN/creatinine elevated but remains stable 82/2.51, patient back on Hexadrol off of IV steroids 07/29/2021, patient seen eval examined during the rounds labs reviewed medica tions reviewed, is still short of breath on activity and exertion cough is associated with sputum but slight and now no more hemoptysis is seen, BUN/creatinine is up to 83/2.47, CBC stable, oxygen saturation 97% on 2 L nasal cannula hemodynamic status stable, he remains on IV steroids breathing rekha tments antibiotics and steroids appeared to be responding well also has COVID-19 infection 07/28/2021, patient seen eval reexamined during the rounds labs reviewed medications reviewed still have ongoing cough on however sputum is fleet assistant 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, no more hemoptysis seen, Sputum culture no pathologic organism have been seen, patient remains afebrile, with oxygen saturation of 91-92% room air, uterus chest x-ray shows slight improvement in bilateral basal infiltrate, labs reviewed today white cell count within normal limit potassium is 5.7 BUN/creatinine is 77 and 2.4, 07/25/2021, patient seen eval examined during the rounds labs reviewed medications reviewed, patient has intermittent cough and he is producing clear to yellow sputum mixed with intermittent stye streaks of blood, more short of breath on 2 L oxygen, discussed with infectious disease services will start patient on IV steroids antibiotics send sputum for Gram stain and culture 07/24/2021, patient seen eval examined during the rounds overall no significant change in saturation 95% on room air, patient remains on oral steroids Decadron 6 mg daily, tolerating well today's x-ray reviewed some streak-like infiltrate at the bases cannot be excluded or perihilar infiltrate 07/23/2021, patient seen eval examined in follow-up, respiratory status not much change, chest x-ray reviewed possible interstitial pattern cannot be excluded, patient remains on room air as saturation 94% with stable hemodynamics, blood pressure is the 110/60, patient remains on bronchodilator continuation of home medications including liquids along with daily 6 mg of Decadron, patient has been restarted on her midodrine Patient is a 89-year-old male came into the hospital with generalized weakness and fall related to weakness, patient sees Dr. Yadav for primary care activities, cagle denies any night sweats fever or chills denies any chest pain or radiation of pain, no fever no bowel or bladder related problem, patient does have cough with sputum production his labs were significant for a hemoglobin of 12.6, platelet count of 10 7000, BUN/creatinine 56/2.27, glucose is 210, troponin 0.055 0.0 6 AM 0.047, oxygen saturation is 90% to 95% room air improved to, "test came back positive, chest x-ray and rib x-ray stable pacemaker and wires no infiltrate or heart failure identified no pneumothorax, currently patient is treated with bronchodilators continuation of home medications including amiodarone and requests primary History is significant for coronary artery disease, COPD, GERD, deafness, dyslipidemia, degenerative joint disease osteoarthritis history of pneumonia and sleep apnea Past surgical history significant for a bypass surgery, cardiac cath and stent placement and hernia repair orthopedic repair history of pacemaker insertion, stents no history of smoking through abuse and substance use Objective - Vital Signs Vital signs: Vital Signs Temp 97.4 F L 08/01/21 06:19 Pulse 50 L 08/01/21 06:19 Resp 17 08/01/21 06:19 BP 130/74 08/01/21 06:19 Pulse Ox 96 08/01/21 06:19 Intake & Output 07/31/21 08/01/21 08/01/21 18:59 06:59 18:59 Intake Total 200 Output Total 650 700 Balance -650 -500 Intake: Oral 200 Output: Urine 650 700 Other: Voiding Method Diaper External Catheter - Exam - Exam - Constitutional General appearance: average body habitus, cooperative - EENT Eyes: PERRLA Ears: bilateral: normal - Neck Carotids: bilateral: upstroke normal Thyroid: bilateral: normal size - Respiratory Respiratory: bilateral: CTA - Cardiovascular Rhythm: regular Heart sounds: normal: S1, S2 - Gastrointestinal General gastrointestinal: soft - Neurologic Neurologic: CNII-XII intact - Musculoskeletal Musculoskeletal: gait normal, generalized weakness, strength equal bilaterally - Psychiatric Psychiatric: A&O x's 3, appropriate affect, intact judgment & insight - Labs CBC & Chem 7: 07/30/21 05:45 07/31/21 07:34 Labs: Abnormal Lab Results - Last 24 Hours (Table) 07/31/21 07/31/21 07/31/21 Range/Units 11:45 16:37 20:26 D-Dimer (<0.60) mg/L FEU POC Glucose (mg/dL) 158 H 182 H 206 H (75-99) mg/dL 08/01/21 08/01/21 Range/Units 06:56 06:59 D-Dimer 1.38 H (<0.60) mg/L FEU POC Glucose (mg/dL) 135 H (75-99) mg/dL Assessment and Plan Assessment: Likely gram-negative pneumonia/mixed bacterial pneumonia Intermittent hemoptysis, improving Generalized weakness Fall related to weakness Acute on chronic kidney injury COVID-19 infection GERD BPH Dyslipidemia Coronary artery disease with history of CABG and stent placement Plan: Oral Augmentin Continue Hexadrol Reviewed results of sputum for Gram stain and culture Continue deep breathing sense incentive spirometry PT OT evaluation ECF/rehab evaluation for placement Long-term prognosis poor Time with Patient: Greater than 30
[2021-08-01 11:46] LABS: Glucose,Whole Blood 180 mg/dL (75-99)
[2021-08-01] MEDS: CHOLESTYRAMINE (WITH SUGAR) 4 GM PACKET PO SCH ×2 (12:10→18:09)
[2021-08-01] MEDS: ALBUTEROL HFA INHALER INHALATION PRN ×3 (12:34→19:32)
--- NOTE | 2021-08-01 13:16 | XR ---
EXAMINATION TYPE: XR chest 1V portable DATE OF EXAM: 08/01/2021 Comparison: 07/27/2021 Clinical History: 89 oh-year-old male sob Findings: Left anterior chest wall ICD generator with right atrial and right ventricular leads. Median sternoto my wires and postoperative clips in the mediastinum. Heart is mildly enlarged. There are small bilate ral pleural effusions with worsening lower lung opacities. Mild interstitial prominence. Old healed l eft-sided rib fracture is. Impression: New/increased small bilateral pleural effusions with prominent lower lung atelectasis and/or consolid ation. Consider possible etiologies such as CHF or aspiration.
--- NOTE | 2021-08-01 14:55 | P.PN ---
Subjective Progress Note Date: 08/01/21 Follow-up for acute kidney injury. Objective - Vital Signs Vital signs: Vital Signs Temp 97.4 F L 08/01/21 08:36 Pulse 53 L 08/01/21 08:36 Resp 18 08/01/21 08:36 BP 137/69 08/01/21 08:36 Pulse Ox 95 08/01/21 08:36 Intake & Output 07/31/21 08/01/21 08/01/21 18:59 06:59 18:59 Intake Total 200 Output Total 650 700 Balance -650 -500 Intake: Oral 200 Output: Urine 650 700 Other: Voiding Method Diaper External Catheter - Exam Refer to primary team exam, COVID-19 isolation - Labs CBC & Chem 7: 07/30/21 05:45 07/31/21 07:34 Labs: Abnormal Lab Results - Last 24 Hours (Table) 07/31/21 07/31/21 08/01/21 Range/Units 16:37 20:26 06:56 D-Dimer 1.38 H (<0.60) mg/L FEU POC Glucose (mg/dL) 182 H 206 H (75-99) mg/dL 08/01/21 08/01/21 Range/Units 06:59 11:35 D-Dimer (<0.60) mg/L FEU POC Glucose (mg/dL) 135 H 180 H (75-99) mg/dL Assessment and Plan Assessment: 1 acute kidney injury secondary to COVID-19 ATN. #2 chronic kidney disease stage IIIB with a baseline creatinine of 1.5-2.2 MG per DL. #3 metabolic acidosis #4 mild hyperkalemia improved #5 Covid 19 pneumonia Plan: Renal function stable. Continue with current diuretic regimen. No obstruction on renal ultrasound. Check labs in the morning
--- NOTE | 2021-08-01 16:44 | P.PN ---
Progress Note - Text Progress Note Date: 08/01/21 Presenting complaint: Weakness Hospital course: Patient came to the hospital with generalized weakness and fall from weakness. He did have a cough and sputum production. Patient tested positive for COVID-19 infection. July 31: Patient laying in bed. Has a cough. Very little phlegm. Dec reased appetite. A bit tired August 01: Tired. Eating anywhere from 25-50%. Significant edema. Chest x- ray showing bilateral effusions. [ No significant edema]. Review of systems: Was done for constitutional, cardiovascular, GI, pulmonary. relevant finding as above Active Medications Acetaminophen (Acetaminophen Tab 325 Mg Tab) 650 mg PO Q6HR PRN PRN Reason: Mild Pain or Fever > 100.5 Last Admin: 07/22/21 13:49 Dose: 650 mg Documented by: Albuterol Sulfate (Albuterol Hfa Inhaler) 2 puff INHALATION RT-QID PRN PRN Reason: Shortness Of Breath Or Wheezing Last Admin: 08/01/21 15:14 Dose: 2 puff Documented by: Allopurinol (Allopurinol 300 Mg Tab) 300 mg PO DAILY [facility] Last Admin: 08/01/21 09:03 Dose: 300 mg Documented by: Amiodarone HCl (Amiodarone 200 Mg Tab) 200 mg PO [facility] Last Admin: 07/31/21 20:42 Dose: 200 mg Documented by: Amoxicillin/Clavulanate Potassium (Amoxic-Pot Clav 500-125 Mg 1 Each Tab) 1 each PO BID [facility] Last Admin: 08/01/21 09:04 Dose: 1 each Documented by: Apixaban (Apixaban 2.5 Mg Tablet) 2.5 mg PO BID [facility]; Protocol Last Admin: 08/01/21 09:03 Dose: 2.5 mg Documented by: Ascorbic Acid (Ascorbic Acid 500 Mg Tab) 1,000 mg PO DAILY [facility] Last Admin: 08/01/21 09:03 Dose: 1,000 mg Documented by: Atorvastatin Calcium (Atorvastatin 20 Mg Tab) 20 mg PO [facility] Last Admin: 07/31/21 20:41 Dose: 20 mg Documented by: Benzonatate (Benzonatate 100 Mg Cap) 100 mg PO TID [facility] Last Admin: 08/01/21 09:03 Dose: 100 mg Documented by: Cholecalciferol (Cholecalciferol 25 Mcg (1000 Iu) Tablet) 25 mcg PO [facility] Last Admin: 07/31/21 20:41 Dose: 25 mcg Documented by: Cholestyramine Resin (Cholestyramine (With Sugar) 4 Gm Packet) 4 gm PO BID@1000,1800 [facility] Last Admin: 08/01/21 12:10 Dose: Not Given Documented by: Dexamethasone (Dexamethasone 2 Mg Tab) 6 mg PO DAILY [facility] Last Admin: 08/01/21 09:03 Dose: 6 mg Documented by: Finasteride (Finasteride 5 Mg Tab) 5 mg PO DAILY [facility] Last Admin: 08/01/21 09:07 Dose: 5 mg Documented by: Fluvoxamine Maleate (Fluvoxamine 50 Mg Tab) 100 mg PO [facility] Last Admin: 07/31/21 20:42 Dose: 100 mg Documented by: Furosemide (Furosemide 10 Mg/Ml 4 Ml Vial) 40 mg IV Q12HR [facility] Last Admin: 08/01/21 09:07 Dose: 40 mg Documented by: Guaifenesin (Guaifenesin 600 Mg Tablet.Er) 600 mg PO Q12HR [facility] Last Admin: 08/01/21 09:03 Dose: 600 mg Documented by: Insulin Aspart (Insulin Aspart (Novolog) 100 Unit/Ml Vial) 0 unit SQ [facility]; Protocol Last Admin: 08/01/21 12:28 Dose: 2 unit Documented by: Ketotifen Fumarate (Ketotifen 0.025% Ophth Drops 5 Ml Btl) 1 drops BOTH EYES BID [facility] Last Admin: 08/01/21 09:04 Dose: 1 drops Documented by: Loratadine (Loratadine 10 Mg Tab) 10 mg PO DAILY PRN PRN Reason: Allergy Symptoms Metoprolol Succinate (Metoprolol Succinate (Er) 25 Mg Tab.Er.24h) 25 mg PO [facility] Last Admin: 07/31/21 20:41 Dose: 25 mg Documented by: Midodrine (Midodrine 5 Mg Tab) 5 mg PO AC-TID [facility] Last Admin: 08/01/21 12:28 Dose: 5 mg Documented by: Montelukast Sodium (Montelukast 10 Mg Tab) 10 mg PO [facility] Last Admin: 07/31/21 20:41 Dose: 10 mg Documented by: Naloxone HCl (Naloxone 0.4 Mg/Ml 1 Ml Vial) 0.2 mg IV Q2M PRN PRN Reason: Opioid Reversal Pantoprazole Sodium (Pantoprazole 40 Mg Tablet) 40 mg PO AC-BRKFST [facility] Last Admin: 08/01/21 09:03 Dose: 40 mg Documented by: Sodium Bicarbonate (Sodium Bicarbonate Tab 650 Mg Tab) 650 mg PO TID [facility] Last Admin: 08/01/21 09:03 Dose: 650 mg Documented by: Tamsulosin HCl (Tamsulosin 0.4 Mg Cap.Er.24h) 0.4 mg PO DAILY [facility] Last Admin: 08/01/21 09:03 Dose: 0.4 mg Documented by: Zinc Sulfate (Zinc Sulfate 220 Mg Cap) 220 mg PO DAILY [facility] Last Admin: 08/01/21 09:03 Dose: 220 mg Documented by: On examination: VITAL SIGNS: 97.5, 50, 17, 132/73, 98% on 2 L GENERAL APPEARANCE: Laying in bed, awake, tired HEENT: Normal external appearance of nose and ear. Oral cavity normal EYES: Pupils equal. Conjunctiva normal. NECK: JVD not raised. Mass not palpable. RESPIRATORY: Respiratory effort increased. Lungs decreased breath sounds CARDIOVASCULAR: First and second sounds normal. Significant edema ABDOMEN: Soft. Liver and spleen not palpable. No tenderness. No mass palpable. PSYCHIATRY: Alert and oriented x3. Mood and affect normal. INVESTIGATIONS, reviewed in the clinical context: August 01: D-dimer 1.38. UA negative. Pro-calcitonin 0.09 Sodium 138 potassium 4.9 BUN 88 creatinine 2.64 White count 17 hemoglobin 12.3 platelets 146 Ultrasound kidney bladder: Diminutive right kidney Chest x-ray: Infiltrates Assessment and plan: -COVID-19 pneumonia with secondary infection possible bacterial. Dexamethasone and Augmentin -CAD with stent -Persistent atrial fibrillation Amiodarone 200 mg daily at bedtime. Toprol-XL 25 mg at bedtime eliquis 2.5 mg twice a day -Acute fluid overload with bilateral pleural effusions significant edema We'll give Lasix drip 10 mg an hour for 12 hours. An increase IV Lasix to 60 mg every 12 starting tomorrow -COPD Singulair 10 mg daily at bedtime -GERD Protonix 40 mg daily -Hyperlipidemia Lipitor 20 mg daily at bedtime -Essential hypertension Toprol-XL 25 mg daily at bedtime -Primary osteoarthritis Pain medications as needed -Obstructive sleep apnea does not use CPAP -AICD Telemetry -BPH Flomax 0.4 mg daily. Proscar 5 mg daily Lasix drip at 10 mg an hour for 12 hours. Increase IV Lasix to 60 mg every 12. Follow labs. His strict I's and O's. Axel wraps both lower extremity.
[2021-08-01 16:45] LABS: Glucose,Whole Blood 128 mg/dL (75-99)
[2021-08-01] MEDS: FUROSEMIDE 100 MG in SODIUM CHLORIDE 0.9% 90 ML IV SCH (18:02)
[2021-08-01 20:08] LABS: Glucose,Whole Blood 161 mg/dL (75-99)
[2021-08-01] MEDS: CHOLECALCIFEROL 25 MCG (1000 IU) TABLET PO SCH (21:41)
[2021-08-01] MEDS: ATORVASTATIN 20 MG TAB PO SCH (21:41)
[2021-08-01] MEDS: METOPROLOL SUCCINATE (ER) 25 MG TAB.ER.24H PO SCH (21:41)
[2021-08-01] MEDS: AMIODARONE 200 MG TAB PO SCH (21:41)
[2021-08-01] MEDS: MONTELUKAST 10 MG TAB PO SCH (21:41)
--- NOTE | 2021-08-02 03:28 | PN ---
PROGRESS NOTE DATE OF SERVICE: 08/01/2021 REASON FOR FOLLOWUP VISIT: Pneumonia. INTERVAL HISTORY: The patient is afebrile. The patient is breathing comfortably. The patient denies having any chest pain. No worsening shortness of breath. Occasional cough. No abdominal pain, no diarrhea. PHYSICAL EXAMINATION: Blood pressure 139/80 with a pulse of 80, temperature 97.8. He is 95% on 3 L nasal cannula. General description is an elderly male lying in bed in no distress. Respiratory system: Unlabored breathing, decreased intensity of breath sounds. No wheeze. Heart S1, S2. Regular rate and rhythm. Abdomen soft, no tenderness. LABS: Urine was negative. D-dimer is 1.38. ( ) CRP normal. DIAGNOSTIC IMPRESSION AND PLAN: Patient admitted to the hospital with COVID-19 pneumonia, subsequent concern for possible secondary bacterial pneumonia. However, the culture has been negative and ( ) is normal. We will discontinue his Augmentin which will help with the diarrhea. Continue supportive care. MMODL / IJN: [id number] /
[2021-08-02] MEDS: FUROSEMIDE 100 MG in SODIUM CHLORIDE 0.9% 90 ML IV SCH (04:05)
[2021-08-02 07:00] LABS: Glucose,Whole Blood 137 mg/dL (75-99)
[2021-08-02 08:14] LABS: African American GFR (CKD) 25 (>60 ml/min/1.73 sqM); Anion Gap 9 mmol/L; Blood Urea Nitrogen 98 mg/dL (9-20); Carbon Dioxide 19 mmol/L (22-30); Chloride 111 mmol/L (98-107); Glucose 122 mg/dL (74-99); Non-African American GFR(CKD) 22 (>60 ml/min/1.73 sqM); Potassium 4.6 mmol/L (3.5-5.1); Sodium 139 mmol/L (137-145)
[2021-08-02] MEDS: FUROSEMIDE 10 MG/ML 10 ML VIAL IV SCH ×2 (08:16→21:27)
[2021-08-02] MEDS: INSULIN ASPART (NovoLOG) 100 UNIT/ML VIAL SQ SCH ×4 (08:17→21:40)
[2021-08-02] MEDS: CHOLESTYRAMINE (WITH SUGAR) 4 GM PACKET PO SCH ×2 (09:27→18:09)
[2021-08-02] MEDS: TAMSULOSIN 0.4 MG CAP.ER.24H PO SCH (09:27)
[2021-08-02] MEDS: FINASTERIDE 5 MG TAB PO SCH (09:27)
[2021-08-02] MEDS: allopurinoL 300 MG TAB PO SCH (09:27)
[2021-08-02] MEDS: MIDODRINE 5 MG TAB PO SCH ×3 (09:27→16:39)
[2021-08-02] MEDS: BENZONATATE 100 MG CAP PO SCH ×3 (09:27→21:28)
[2021-08-02] MEDS: APIXABAN 2.5 MG TABLET PO SCH ×2 (09:27→21:29)
[2021-08-02] MEDS: guaiFENesin 600 MG TABLET.ER PO SCH ×2 (09:27→21:29)
[2021-08-02] MEDS: ZINC SULFATE 220 MG CAP PO SCH (09:27)
[2021-08-02] MEDS: PANTOPRAZOLE 40 MG TABLET PO SCH (09:28)
[2021-08-02] MEDS: ASCORBIC ACID 500 MG TAB PO SCH (09:28)
[2021-08-02] MEDS: SODIUM BICARBONATE TAB 650 MG TAB PO SCH ×3 (09:28→21:29)
[2021-08-02] MEDS: dexAMETHasone 2 MG TAB PO SCH (09:28)
[2021-08-02] MEDS: KETOTIFEN 0.025% OPHTH DROPS 5 ML BTL BOTH EYES SCH ×2 (09:28→21:40)
--- NOTE | 2021-08-02 10:24 | P.PN ---
Subjective Patient is seen in follow-up for acute kidney injury on chronic kidney disease. Renal function stable. Hemodynamically stable. On 2 L nasal cannula. Has been voiding. Nonoliguric. Vital signs are stable. General: The patient appeared well nourished and normally developed. HEENT: Head exam is unremarkable. LUNGS: Breath sounds decreased. HEART: Rate and Rhythm are regular. ABDOMEN: Soft, no distention. EXTREMITITES: 1+ edema. Lower extremity is wrapped. Objective - Vital Signs Vital signs: Vital Signs Temp 97.7 F 08/02/21 06:14 Pulse 50 L 08/02/21 06:14 Resp 18 08/02/21 06:14 BP 133/69 08/02/21 06:14 Pulse Ox 94 L 08/02/21 06:14 Intake & Output 08/01/21 08/02/21 08/02/21 18:59 06:59 18:59 Intake Total 100 Output Total 750 1500 Balance -750 -1400 Intake: Intake, IV Titration 100 Amount Furosemide 100 mg In 100 Sodium Chloride 0.9% 90 ml @ 10 MG/HR 10 mls/hr IV .Q10H [facility] Rx#: [id number] Oral 0 Output: Urine 750 1500 Other: Voiding Method Urinal # Voids 1 - Labs CBC & Chem 7: 07/30/21 05:45 08/02/21 07:12 Labs: Abnormal Lab Results - Last 24 Hours (Table) 08/01/21 08/01/21 08/01/21 Range/Units 11:35 16:43 20:06 Chloride (98-107) mmol/L Carbon Dioxide (22-30) mmol/L BUN (9-20) mg/dL Creatinine (0.66-1.25) mg/dL Glucose (74-99) mg/dL POC Glucose (mg/dL) 180 H 128 H 161 H (75-99) mg/dL Calcium (8.4-10.2) mg/dL 08/02/21 08/02/21 Range/Units 06:58 07:12 Chloride 111 H (98-107) mmol/L Carbon Dioxide 19 L (22-30) mmol/L BUN 98 H (9-20) mg/dL Creatinine 2.56 H (0.66-1.25) mg/dL Glucose 122 H (74-99) mg/dL POC Glucose (mg/dL) 137 H (75-99) mg/dL Calcium 8.0 L (8.4-10.2) mg/dL Assessment and Plan Plan: Assessment: 1. Acute kidney injury secondary to ATN secondary to COVID-19 infection and cardiorenal syndrome. Renal function stable. Creatinine 2.56 today. UA benign. Right kidney atrophic. Left kidney not seen. No evidence of hydronephrosis. 2. Chronic kidney disease stage IIIB with baseline creatinine the range of 1.5- 2 secondary to nephrosclerosis. 3. COVID-19 pneumonia as well as superimposed bacterial pneumonia. On antibiotics. 4. Metabolic acidosis secondary to acute kidney injury. on oral bicarbonate. 5. Mild hyperkalemia secondary to acute kidney injury and metabolic acidosis. resolved. 6. Fluid overload. Plan: Maintain IV Lasix. Avoid nephrotoxins. Continue to monitor renal function and urine output. Hold midodrine for systolic blood pressure greater than 110.
[2021-08-02 11:40] LABS: Glucose,Whole Blood 181 mg/dL (75-99)
[2021-08-02 16:40] LABS: Glucose,Whole Blood 167 mg/dL (75-99)
--- NOTE | 2021-08-02 17:23 | P.PN ---
Progress Note - Text Progress Note Date: 08/02/21 Presenting complaint: Weakness Hospital course: Patient came to the hospital with generalized weakness and fall from weakness. He did have a cough and sputum production. Patient tested positive for COVID-19 infection. July 31: Patient laying in bed. Has a cough. Very little phlegm. Dec reased appetite. A bit tired August 01: Tired. Eating anywhere from 25-50%. Significant edema. Chest x- ray showing bilateral effusions. [ No significant edema]. August 02: Laying in bed. Less tired. Breathing a bit better. Put on Lasix drip for 12 hours yesterday Good urine output. On IV Lasix 60 mg every 12. Eating about 25-50%. Axel wrap lower extremity. Review of systems: Was done for constitutional, cardiovascular, GI, pulmonary. relevant finding as above Active Medications Acetaminophen (Acetaminophen Tab 325 Mg Tab) 650 mg PO Q6HR PRN PRN Reason: Mild Pain or Fever > 100.5 Last Admin: 07/22/21 13:49 Dose: 650 mg Documented by: Albuterol Sulfate (Albuterol Hfa Inhaler) 2 puff INHALATION RT-QID PRN PRN Reason: Shortness Of Breath Or Wheezing Last Admin: 08/01/21 19:32 Dose: 2 puff Documented by: Allopurinol (Allopurinol 300 Mg Tab) 300 mg PO DAILY [facility] Last Admin: 08/02/21 09:27 Dose: 300 mg Documented by: Amiodarone HCl (Amiodarone 200 Mg Tab) 200 mg PO [facility] Last Admin: 08/01/21 21:41 Dose: 200 mg Documented by: Apixaban (Apixaban 2.5 Mg Tablet) 2.5 mg PO BID [facility]; Protocol Last Admin: 08/02/21 09:27 Dose: 2.5 mg Documented by: Ascorbic Acid (Ascorbic Acid 500 Mg Tab) 1,000 mg PO DAILY [facility] Last Admin: 08/02/21 09:28 Dose: 1,000 mg Documented by: Atorvastatin Calcium (Atorvastatin 20 Mg Tab) 20 mg PO [facility] Last Admin: 08/01/21 21:41 Dose: 20 mg Documented by: Benzonatate (Benzonatate 100 Mg Cap) 100 mg PO TID [facility] Last Admin: 08/02/21 16:39 Dose: 100 mg Documented by: Cholecalciferol (Cholecalciferol 25 Mcg (1000 Iu) Tablet) 25 mcg PO [facility] Last Admin: 08/01/21 21:41 Dose: 25 mcg Documented by: Cholestyramine Resin (Cholestyramine (With Sugar) 4 Gm Packet) 4 gm PO BID@1000,1800 [facility] Last Admin: 08/02/21 09:27 Dose: 4 gm Documented by: Dexamethasone (Dexamethasone 2 Mg Tab) 6 mg PO DAILY [facility] Last Admin: 08/02/21 09:28 Dose: 6 mg Documented by: Finasteride (Finasteride 5 Mg Tab) 5 mg PO DAILY [facility] Last Admin: 08/02/21 09:27 Dose: 5 mg Documented by: Fluvoxamine Maleate (Fluvoxamine 50 Mg Tab) 100 mg PO [facility] Last Admin: 08/01/21 21:41 Dose: 100 mg Documented by: Furosemide (Furosemide 10 Mg/Ml 10 Ml Vial) 60 mg IV Q12HR [facility] Last Admin: 08/02/21 08:16 Dose: 60 mg Documented by: Guaifenesin (Guaifenesin 600 Mg Tablet.Er) 600 mg PO Q12HR [facility] Last Admin: 08/02/21 09:27 Dose: 600 mg Documented by: Insulin Aspart (Insulin Aspart (Novolog) 100 Unit/Ml Vial) 0 unit SQ [facility]; Protocol Last Admin: 08/02/21 12:41 Dose: 2 unit Documented by: Ketotifen Fumarate (Ketotifen 0.025% Ophth Drops 5 Ml Btl) 1 drops BOTH EYES BID [facility] Last Admin: 08/02/21 09:28 Dose: 1 drops Documented by: Loratadine (Loratadine 10 Mg Tab) 10 mg PO DAILY PRN PRN Reason: Allergy Symptoms Metoprolol Succinate (Metoprolol Succinate (Er) 25 Mg Tab.Er.24h) 25 mg PO [facility] Last Admin: 08/01/21 21:41 Dose: 25 mg Documented by: Midodrine (Midodrine 5 Mg Tab) 5 mg PO AC-TID [facility] Last Admin: 08/02/21 16:39 Dose: 5 mg Documented by: Montelukast Sodium (Montelukast 10 Mg Tab) 10 mg PO [facility] Last Admin: 08/01/21 21:41 Dose: 10 mg Documented by: Naloxone HCl (Naloxone 0.4 Mg/Ml 1 Ml Vial) 0.2 mg IV Q2M PRN PRN Reason: Opioid Reversal Pantoprazole Sodium (Pantoprazole 40 Mg Tablet) 40 mg PO AC-BRKFST [facility] Last Admin: 08/02/21 09:28 Dose: 40 mg Documented by: Sodium Bicarbonate (Sodium Bicarbonate Tab 650 Mg Tab) 650 mg PO TID [facility] Last Admin: 08/02/21 16:39 Dose: 650 mg Documented by: Tamsulosin HCl (Tamsulosin 0.4 Mg Cap.Er.24h) 0.4 mg PO DAILY [facility] Last Admin: 08/02/21 09:27 Dose: 0.4 mg Documented by: Zinc Sulfate (Zinc Sulfate 220 Mg Cap) 220 mg PO DAILY [facility] Last Admin: 08/02/21 09: Dose: 220 mg Documented by: On examination: VITAL SIGNS: 97.7, 50, 18, 115/66, 92% on 2 L GENERAL APPEARANCE: Laying in bed, awake, tired HEENT: Normal external appearance of nose and ear. Oral cavity normal EYES: Pupils equal. Conjunctiva normal. NECK: JVD not raised. Mass not palpable. RESPIRATORY: Respiratory effort increased. Lungs decreased breath sounds CARDIOVASCULAR: First and second sounds normal. Edema/Axel wrap ABDOMEN: Soft. Liver and spleen not palpable. No tenderness. No mass palpable. PSYCHIATRY: Alert and oriented x3. Mood and affect normal. INVESTIGATIONS, reviewed in the clinical context: August 02: Potassium 4.6 BUN 98 creatinine 2.56 bicarb 19 August 01: D-dimer 1.38. UA negative. Pro-calcitonin 0.09 Sodium 138 potassium 4.9 BUN 88 creatinine 2.64 White count 17 hemoglobin 12.3 platelets 146 Ultrasound kidney bladder: Diminutive right kidney Chest x-ray: Infiltrates Assessment and plan: -COVID-19 pneumonia with secondary infection possible bacterial. Dexamethasone and Augmentin -CAD with stent -Persistent atrial fibrillation Amiodarone 200 mg daily at bedtime. Toprol-XL 25 mg at bedtime eliquis 2.5 mg twice a day -Acute fluid overload with bilateral pleural effusions significant edema: Slow to respond IV Lasix to 60 mg every 12 -COPD Singulair 10 mg daily at bedtime -GERD Protonix 40 mg daily -Hyperlipidemia Lipitor 20 mg daily at bedtime -Essential hypertension Toprol-XL 25 mg daily at bedtime -Primary osteoarthritis Pain medications as needed -Obstructive sleep apnea does not use CPAP -AICD Telemetry -BPH Flomax 0.4 mg daily. Proscar 5 mg daily Continue with IV Lasix. Repeat chest x-ray in the morning. Follow labs. Discussed with patient.
[2021-08-02] MEDS: AMIODARONE 200 MG TAB PO SCH (21:28)
[2021-08-02] MEDS: ATORVASTATIN 20 MG TAB PO SCH (21:29)
[2021-08-02] MEDS: METOPROLOL SUCCINATE (ER) 25 MG TAB.ER.24H PO SCH (21:29)
[2021-08-02] MEDS: MONTELUKAST 10 MG TAB PO SCH (21:29)
[2021-08-02] MEDS: CHOLECALCIFEROL 25 MCG (1000 IU) TABLET PO SCH (21:29)
[2021-08-02 21:37] LABS: Glucose,Whole Blood 166 mg/dL (75-99)
--- NOTE | 2021-08-03 02:01 | PN ---
PROGRESS NOTE DATE OF SERVICE: 08/02/2021 REASON FOR FOLLOWUP: 1. Pneumonia. 2. Diarrhea. INTERVAL HISTORY: The patient is afebrile. The patient is breathing slightly comfortably, currently on 2 L nasal cannula. The patient denies having any chest pain, shortness of breath. Occasional cough. No abdominal pain. Diarrhea has improved. PHYSICAL EXAMINATION: Blood pressure 135/60 with a pulse of 50, temperature 99.4. He is 92% on 2 L nasal cannula. General description is an elderly male lying in bed in no distress. Respiratory system: Unlabored breathing, decreased intensity of breath sounds. No wheeze. Heart S1, S2. Regular rate and rhythm. Abdomen soft, no tenderness. LABS: BUN of 19, creatinine is 2.5. DIAGNOSTIC IMPRESSION AND PLAN: 1. Patient admitted to hospital with COVID-19 pneumonia with subsequent concern for possible bacterial pneumonia. Sputum has been ( ) adequate antibiotic therapy, currently being monitored off antibiotic. 2. Patient's diarrhea possible ( ) and has improved after discontinued antibiotics. Recommend holding Questran if no bowel movement for 24 hours. MMODL / IJN: [id number] /
[2021-08-03 06:57] LABS: Glucose,Whole Blood 113 mg/dL (75-99)
[2021-08-03] MEDS: INSULIN ASPART (NovoLOG) 100 UNIT/ML VIAL SQ SCH ×4 (07:24→21:52)
[2021-08-03 08:11] LABS: African American GFR (CKD) 25 (>60 ml/min/1.73 sqM); Anion Gap 7 mmol/L; Blood Urea Nitrogen 100 mg/dL (9-20); Calcium 8.1 mg/dL (8.4-10.2); Carbon Dioxide 24 mmol/L (22-30); Chloride 109 mmol/L (98-107); Glucose 113 mg/dL (74-99); Magnesium 2.4 mg/dL (1.6-2.3); Non-African American GFR(CKD) 22 (>60 ml/min/1.73 sqM); Potassium 4.3 mmol/L (3.5-5.1); Sodium 140 mmol/L (137-145)
[2021-08-03] MEDS: FUROSEMIDE 10 MG/ML 10 ML VIAL IV SCH ×2 (08:44→21:50)
[2021-08-03] MEDS: CHOLESTYRAMINE (WITH SUGAR) 4 GM PACKET PO SCH ×2 (08:44→16:17)
[2021-08-03] MEDS: TAMSULOSIN 0.4 MG CAP.ER.24H PO SCH (08:45)
[2021-08-03] MEDS: allopurinoL 300 MG TAB PO SCH (08:45)
[2021-08-03] MEDS: ZINC SULFATE 220 MG CAP PO SCH (08:45)
[2021-08-03] MEDS: guaiFENesin 600 MG TABLET.ER PO SCH ×2 (08:45→21:51)
[2021-08-03] MEDS: PANTOPRAZOLE 40 MG TABLET PO SCH (08:45)
[2021-08-03] MEDS: ASCORBIC ACID 500 MG TAB PO SCH (08:45)
[2021-08-03] MEDS: dexAMETHasone 2 MG TAB PO SCH (08:45)
[2021-08-03] MEDS: SODIUM BICARBONATE TAB 650 MG TAB PO SCH ×3 (08:45→21:51)
[2021-08-03] MEDS: FINASTERIDE 5 MG TAB PO SCH (08:45)
[2021-08-03] MEDS: APIXABAN 2.5 MG TABLET PO SCH ×2 (08:45→21:51)
[2021-08-03] MEDS: BENZONATATE 100 MG CAP PO SCH ×3 (08:45→21:52)
[2021-08-03] MEDS: MIDODRINE 5 MG TAB PO SCH ×3 (08:45→16:17)
[2021-08-03] MEDS: KETOTIFEN 0.025% OPHTH DROPS 5 ML BTL BOTH EYES SCH ×2 (08:46→21:49)
[2021-08-03] MEDS: ALBUTEROL HFA INHALER INHALATION PRN ×2 (09:11→12:30)
--- NOTE | 2021-08-03 10:20 | P.PN ---
Subjective Patient is seen in follow-up for acute kidney injury on chronic kidney disease. Renal function stable. Hemodynamically stable. On 2 L nasal cannula. Has been voiding. Nonoliguric. On IV Lasix. Vital signs are stable. General: The patient appeared well nourished and normally developed. HEENT: Head exam is unremarkable. LUNGS: Breath sounds decreased. HEART: Rate and Rhythm are regular. ABDOMEN: Soft, no distention. EXTREMITITES: 1+ edema. Lower extremities wrapped. Objective - Vital Signs Vital signs: Vital Signs Temp 97.6 F 08/03/21 05:35 Pulse 50 L 08/03/21 05:35 Resp 14 08/03/21 05:35 BP 130/70 08/03/21 05:35 Pulse Ox 95 08/03/21 05:35 Intake & Output 08/02/21 08/03/21 08/03/21 18:59 06:59 18:59 Intake Total 200 Output Total 900 Balance -700 Intake: Oral 200 Output: Urine 900 Other: Voiding Method Urinal # Voids 6 - Labs CBC & Chem 7: 07/30/21 05:45 08/03/21 07:31 Labs: Abnormal Lab Results - Last 24 Hours (Table) 08/02/21 08/02/21 08/02/21 Range/Units 11:33 16:37 21:35 Chloride (98-107) mmol/L BUN (9-20) mg/dL Creatinine (0.66-1.25) mg/dL Glucose (74-99) mg/dL POC Glucose (mg/dL) 181 H 167 H 166 H (75-99) mg/dL Calcium (8.4-10.2) mg/dL Magnesium (1.6-2.3) mg/dL 08/03/21 08/03/21 Range/Units 06:54 07:31 Chloride 109 H (98-107) mmol/L BUN 100 H (9-20) mg/dL Creatinine 2.54 H (0.66-1.25) mg/dL Glucose 113 H (74-99) mg/dL POC Glucose (mg/dL) 113 H (75-99) mg/dL Calcium 8.1 L (8.4-10.2) mg/dL Magnesium 2.4 H (1.6-2.3) mg/dL Assessment and Plan Plan: Assessment: 1. Acute kidney injury secondary to ATN secondary to COVID-19 infection and cardiorenal syndrome. Renal function stable. Creatinine 2.54 today. UA benign. Right kidney atrophic. Left kidney not seen. No evidence of hydronephrosis. 2. Chronic kidney disease stage IIIB with baseline creatinine the range of 1.5- 2 secondary to nephrosclerosis. 3. COVID-19 pneumonia as well as superimposed bacterial pneumonia. 4. Metabolic acidosis secondary to acute kidney injury. On oral bicarbonate. 5. Mild hyperkalemia secondary to acute kidney injury and metabolic acidosis. resolved. 6. Fluid overload. Improving with diuresis. Plan: Maintain IV Lasix. Avoid nephrotoxins. Continue to monitor renal function and urine output. Hold midodrine for systolic blood pressure greater than 110.
[2021-08-03 11:45] LABS: Glucose,Whole Blood 167 mg/dL (75-99)
--- NOTE | 2021-08-03 14:09 | XR ---
EXAMINATION TYPE: XR chest 1V portable DATE OF EXAM: 08/03/2021 COMPARISON: 08/01/2021 HISTORY: 89 years Male. STUDY INDICATION GIVEN: pulmonary edema . TECHNIQUE: AP chest radiograph IMPRESSION: Interval decrease in opacities in the right lower lobe. Stable near complete opacification of the lef t lower lobe. Mild interstitial edema without significant change. No pneumothorax or large effusion, it is difficult to exclude a small left side effusion due to overl kaelyn cardiac device. Stable cardiomegaly with AICD device and sternotomy wires. Generalized osteopenia, no acute fracture or dislocation. Atherosclerotic calcifications seen in the intrathoracic aorta.
[2021-08-03 16:39] LABS: Glucose,Whole Blood 182 mg/dL (75-99)
[2021-08-03 20:41] LABS: Glucose,Whole Blood 195 mg/dL (75-99)
[2021-08-03] MEDS: AMIODARONE 200 MG TAB PO SCH (21:51)
[2021-08-03] MEDS: ACETAMINOPHEN TAB 325 MG TAB PO PRN (21:51)
[2021-08-03] MEDS: METOPROLOL SUCCINATE (ER) 25 MG TAB.ER.24H PO SCH (21:51)
[2021-08-03] MEDS: CHOLECALCIFEROL 25 MCG (1000 IU) TABLET PO SCH (21:51)
[2021-08-03] MEDS: MONTELUKAST 10 MG TAB PO SCH (21:51)
[2021-08-03] MEDS: ATORVASTATIN 20 MG TAB PO SCH (21:51)
--- NOTE | 2021-08-03 22:27 | P.PN ---
Progress Note - Text Progress Note Date: 08/03/21 Presenting complaint: Weakness Hospital course: Patient came to the hospital with generalized weakness and fall from weakness. He did have a cough and sputum production. Patient tested positive for COVID-19 infection. July 31: Patient laying in bed. Has a cough. Very little phlegm. Dec reased appetite. A bit tired August 01: Tired. Eating anywhere from 25-50%. Significant edema. Chest x- ray showing bilateral effusions. [ No significant edema]. August 02: Laying in bed. Less tired. Breathing a bit better. Put on Lasix drip for 12 hours yesterday Good urine output. On IV Lasix 60 mg every 12. Eating about 25-50%. Axel wrap lower extremity. August 03: Oral intake better. Reclining in bed. On IV Lasix 60 mg every 12. Good urine output. Breathing better. A bit of a congested cough. Review of systems: Was done for constitutional, cardiovascular, GI, pulmonary. relevant finding as above Active Medications Acetaminophen (Acetaminophen Tab 325 Mg Tab) 650 mg PO Q6HR PRN PRN Reason: Mild Pain or Fever > 100.5 Last Admin: 08/03/21 21:51 Dose: 650 mg Documented by: Albuterol Sulfate (Albuterol Hfa Inhaler) 2 puff INHALATION RT-QID PRN PRN Reason: Shortness Of Breath Or Wheezing Last Admin: 08/03/21 12:30 Dose: 2 puff Documented by: Allopurinol (Allopurinol 300 Mg Tab) 300 mg PO DAILY [facility] Last Admin: 08/03/21 08:45 Dose: 300 mg Documented by: Amiodarone HCl (Amiodarone 200 Mg Tab) 200 mg PO [facility] Last Admin: 08/03/21 21:51 Dose: 200 mg Documented by: Apixaban (Apixaban 2.5 Mg Tablet) 2.5 mg PO BID [facility]; Protocol Last Admin: 08/03/21 21:51 Dose: 2.5 mg Documented by: Ascorbic Acid (Ascorbic Acid 500 Mg Tab) 1,000 mg PO DAILY [facility] Last Admin: 08/03/21 08:45 Dose: 1,000 mg Documented by: Atorvastatin Calcium (Atorvastatin 20 Mg Tab) 20 mg PO [facility] Last Admin: 08/03/21 21:51 Dose: 20 mg Documented by: Benzonatate (Benzonatate 100 Mg Cap) 100 mg PO TID [facility] Last Admin: 08/03/21 21:52 Dose: 100 mg Documented by: Cholecalciferol (Cholecalciferol 25 Mcg (1000 Iu) Tablet) 25 mcg PO [facility] Last Admin: 08/03/21 21:51 Dose: 25 mcg Documented by: Cholestyramine Resin (Cholestyramine (With Sugar) 4 Gm Packet) 4 gm PO BID@1000,1800 [facility] Last Admin: 08/03/21 16:17 Dose: 4 gm Documented by: Dexamethasone (Dexamethasone 2 Mg Tab) 6 mg PO DAILY [facility] Last Admin: 08/03/21 08:45 Dose: 6 mg Documented by: Finasteride (Finasteride 5 Mg Tab) 5 mg PO DAILY [facility] Last Admin: 08/03/21 08:45 Dose: 5 mg Documented by: Fluvoxamine Maleate (Fluvoxamine 50 Mg Tab) 100 mg PO [facility] Last Admin: 08/03/21 21:52 Dose: 100 mg Documented by: Furosemide (Furosemide 10 Mg/Ml 10 Ml Vial) 60 mg IV Q12HR [facility] Last Admin: 08/03/21 21:50 Dose: 60 mg Documented by: Guaifenesin (Guaifenesin 600 Mg Tablet.Er) 600 mg PO Q12HR [facility] Last Admin: 08/03/21 21:51 Dose: 600 mg Documented by: Insulin Aspart (Insulin Aspart (Novolog) 100 Unit/Ml Vial) 0 unit SQ [facility]; Protocol Last Admin: 08/03/21 21:52 Dose: 2 unit Documented by: Ketotifen Fumarate (Ketotifen 0.025% Ophth Drops 5 Ml Btl) 1 drops BOTH EYES BID [facility] Last Admin: 08/03/21 21:49 Dose: 1 drops Documented by: Loratadine (Loratadine 10 Mg Tab) 10 mg PO DAILY PRN PRN Reason: Allergy Symptoms Metoprolol Succinate (Metoprolol Succinate (Er) 25 Mg Tab.Er.24h) 25 mg PO [facility] Last Admin: 08/03/21 21:51 Dose: 25 mg Documented by: Midodrine (Midodrine 5 Mg Tab) 5 mg PO AC-TID [facility] Last Admin: 08/03/21 16:17 Dose: 5 mg Documented by: Montelukast Sodium (Montelukast 10 Mg Tab) 10 mg PO [facility] Last Admin: 08/03/21 21:51 Dose: 10 mg Documented by: Naloxone HCl (Naloxone 0.4 Mg/Ml 1 Ml Vial) 0.2 mg IV Q2M PRN PRN Reason: Opioid Reversal Pantoprazole Sodium (Pantoprazole 40 Mg Tablet) 40 mg PO AC-BRKFST [facility] Last Admin: 08/03/21 08:45 Dose: 40 mg Documented by: Sodium Bicarbonate (Sodium Bicarbonate Tab 650 Mg Tab) 650 mg PO TID [facility] Last Admin: 08/03/21 21:51 Dose: 650 mg Documented by: Tamsulosin HCl (Tamsulosin 0.4 Mg Cap.Er.24h) 0.4 mg PO DAILY [facility] Last Admin: 08/03/21 08:45 Dose: 0.4 mg Documented by: Zinc Sulfate (Zinc Sulfate 220 Mg Cap) 220 mg PO DAILY [facility] Last Admin: 08/03/21 08:45 Dose: 220 mg Documented by: On examination: VITAL SIGNS: 97.6, 50, 17, 123/57, 93% on 2 L GENERAL APPEARANCE: Laying in bed, awake, tired HEENT: Normal external appearance of nose and ear. Oral cavity normal EYES: Pupils equal. Conjunctiva normal. NECK: JVD not raised. Mass not palpable. RESPIRATORY: Respiratory effort increased. Lungs decreased breath sounds CARDIOVASCULAR: First and second sounds normal. Edema/Axel wrap ABDOMEN: Soft. Liver and spleen not palpable. No tenderness. No mass palpable. PSYCHIATRY: Alert and oriented x3. Mood and affect normal. INVESTIGATIONS, reviewed in the clinical context: August 03: Potassium 4.3 BUN 100 creatine 2.5 for Chest x-ray film personally reviewed by wa-[August 03]: Pleural effusion better August 02: Potassium 4.6 BUN 98 creatinine 2.56 bicarb August 01: D-dimer 1.38. UA negative. Pro-calcitonin 0.09 Sodium 138 potassium 4.9 BUN 88 creatinine 2.64 White count 17 hemoglobin 12.3 platelets 146 Ultrasound kidney bladder: Diminutive right kidney Chest x-ray: Infiltrates Assessment and plan: -COVID-19 pneumonia with secondary infection possible bacterial. Dexamethasone and Augmentin -CAD with stent -Persistent atrial fibrillation Amiodarone 200 mg daily at bedtime. Toprol-XL 25 mg at bedtime eliquis 2.5 mg twice a day -Acute fluid overload with bilateral pleural effusions significant edema: Improving IV Lasix to 60 mg every 12 -COPD Singulair 10 mg daily at bedtime -GERD Protonix 40 mg daily -Hyperlipidemia Lipitor 20 mg daily at bedtime -Essential hypertension Toprol-XL 25 mg daily at bedtime -Primary osteoarthritis Pain medications as needed -Obstructive sleep apnea does not use CPAP -AICD Telemetry -BPH Flomax 0.4 mg daily. Proscar 5 mg daily Continue with IV Lasix. Follow last. Discussed with the patient. Other medications to continue.
--- NOTE | 2021-08-04 00:04 | PN ---
PROGRESS NOTE DATE OF SERVICE: 08/03/2021 REASON FOR FOLLOWUP: 1. COVID-19 pneumonia. 2. Diarrhea. INTERVAL HISTORY: The patient is afebrile. The patient is breathing comfortably. Patient denies having any chest pain, shortness of breath. He did have a cough; no worsening, though. No abdominal pain or diarrhea. PHYSICAL EXAMINATION: Blood pressure 124/62 with a pulse of 51, temperature 98.2. He is 91% on 2 L nasal cannula. General description is an elderly female lying in bed in no distress. Respiratory system: Unlabored breathing, decreased intensity of breath sounds. No wheeze. Heart S1, S2. Regular rate and rhythm. Abdomen soft, no tenderness. LABS: BUN 100, creatinine is 2.54. DIAGNOSTIC IMPRESSION AND PLAN: 1. Patient admitted to hospital acute COVID-19 infection with concern for possible secondary bacterial pneumonia, for which the patient has completed his antibiotic therapy. The patient is currently on Eliquis, zinc, ascorbic acid; to continue. 2. Patient with diarrhea, resolved. Questran can be discontinued. Continue supportive care. MMODL / IJN: [id number] /
[2021-08-04 07:29] LABS: Glucose,Whole Blood 133 mg/dL (75-99)
[2021-08-04] MEDS: FUROSEMIDE 10 MG/ML 10 ML VIAL IV SCH ×2 (07:51→20:32)
[2021-08-04] MEDS: dexAMETHasone 2 MG TAB PO SCH (07:52)
[2021-08-04] MEDS: APIXABAN 2.5 MG TABLET PO SCH ×2 (07:52→20:32)
[2021-08-04] MEDS: guaiFENesin 600 MG TABLET.ER PO SCH ×2 (07:52→20:31)
[2021-08-04] MEDS: ASCORBIC ACID 500 MG TAB PO SCH (07:52)
[2021-08-04] MEDS: FINASTERIDE 5 MG TAB PO SCH (07:52)
[2021-08-04] MEDS: PANTOPRAZOLE 40 MG TABLET PO SCH (07:52)
[2021-08-04] MEDS: SODIUM BICARBONATE TAB 650 MG TAB PO SCH ×3 (07:52→20:31)
[2021-08-04] MEDS: BENZONATATE 100 MG CAP PO SCH ×3 (07:53→20:31)
[2021-08-04] MEDS: INSULIN ASPART (NovoLOG) 100 UNIT/ML VIAL SQ SCH ×4 (07:53→20:32)
[2021-08-04] MEDS: KETOTIFEN 0.025% OPHTH DROPS 5 ML BTL BOTH EYES SCH ×2 (07:53→20:33)
[2021-08-04] MEDS: CHOLESTYRAMINE (WITH SUGAR) 4 GM PACKET PO SCH ×2 (07:53→16:57)
[2021-08-04] MEDS: allopurinoL 300 MG TAB PO SCH (07:53)
[2021-08-04] MEDS: ZINC SULFATE 220 MG CAP PO SCH (07:53)
[2021-08-04] MEDS: TAMSULOSIN 0.4 MG CAP.ER.24H PO SCH (07:53)
[2021-08-04] MEDS: MIDODRINE 5 MG TAB PO SCH ×3 (07:53→16:57)
[2021-08-04 07:58] LABS: African American GFR (CKD) 25 (>60 ml/min/1.73 sqM); Anion Gap 8 mmol/L; Carbon Dioxide 23 mmol/L (22-30); Chloride 107 mmol/L (98-107); Glucose 140 mg/dL (74-99); Non-African American GFR(CKD) 22 (>60 ml/min/1.73 sqM); Potassium 4.5 mmol/L (3.5-5.1); Sodium 138 mmol/L (137-145)
[2021-08-04 08:09] LABS: Blood Urea Nitrogen 103 mg/dL (9-20)
[2021-08-04] MEDS: ALBUTEROL HFA INHALER INHALATION PRN (08:17)
[2021-08-04 11:35] LABS: Glucose,Whole Blood 232 mg/dL (75-99)
--- NOTE | 2021-08-04 12:51 | PN ---
PROGRESS NOTE Patient is seen for followup for acute kidney injury on top of chronic kidney disease. The patient is being treated for COVID pneumonia. He is currently working with physical therapy. His chart is reviewed. Blood pressure 122/55, heart rate 50 per minute. He is afebrile. The patient has been voiding in a urinal. LABS: Reviewed. This morning, sodium was 138, potassium 4.5, BUN 103, serum creatinine 2.52. ASSESSMENT: 1. Acute kidney injury, ATN, associated with cardiorenal syndrome and COVID-19 pneumonia with benign UA and atrophic right kidney. Left kidney not visualized on ultrasound. No evidence of hydronephrosis. 2. Chronic kidney disease stage 3B. Baseline creatinine 1.5-2 secondary to nephrosclerosis. 3. COVID-19 pneumonia as well as superimposed bacterial pneumonia. 4. Fluid overload, currently being diuresed, maintained on IV Lasix. PLAN: Continue with the IV Lasix currently at 60 mg q.12 hours. Hold midodrine for systolic blood pressure of more than 110 mmHg. Repeat labs in a.m. Encourage increased oral intake. MMODL / IJN: [id number] /
--- NOTE | 2021-08-04 14:21 | P.PN ---
Subjective Progress Note Date: 08/04/21 Principal diagnosis: Pneumonia Blood stained sputum secondary pneumonia Generalized weakness Fall related to weakness COVID-19 infection GERD BPH Dyslipidemia Coronary artery disease with history of CABG and stent placement 08/04/2021, patient seen eval examined during the rounds labs reviewed medications reviewed sitting upright in chair breathing comfortably, remains on 3 L oxygen, intermittent cough is present mostly is dry now, meds reviewed, remains on bronchodilator, direct oral anticoagulant, oral Decadron, off of antibiotics now him a BUN/creatinine is 103/2.52, sugars 232, last covid testing was performed on the of this month we'll repeat as symptoms significantly improved, and we'll help placement 08/01/2021, patient seen and evaluated examined during the rounds labs reviewed medications reviewed care plan discussed with the staff and patient at length, hemodynamic status stable however blood pressure slightly high, just received his medications from this morning, intermittent cough is present sputum is mucoid thick, patient currently on 2 L oxygen, independently has been going back and forth in room air oxygen, patient has been switched to oral Augmentin by primary service, remains on direct oral anticoagulant, patient lives by himself at home, extremely weak and requires support to stand currently in the process of being evaluated for placement ECF for short-term rehab 07/31/2021, patient seen eval examined during the rounds labs reviewed medications reviewed care plan discussed, respiratory status continued to be stable, patient now is on room air breathing comfortably, feet, does have cough sputum is light yellow 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, PERRL no hemoptysis has been seen, patient is off of IV steroids for now on Decadron for COVID-19 pneumonia inflammation, she remains on broad-spectrum antibiotics with Zosyn for bilateral basal p neumonia which clinically has been improving, but however still needs it, 07/30/2021, patient seen eval examined during the rounds labs reviewed medications reviewed care plan discussed, respiratory status remains stable intermittently patient has been on room air as well, cough is associated with sputum which is light in color and appearance no more hemoptysis seen, today's labs are reviewed white cell count is 7000 hemoglobin and hematocrit 12 and 39, platelets are 1 46,000, potassium is 5.3 showing a downward trend BUN/creatinine elevated but remains stable 82/2.51, patient back on Hexadrol off of IV steroids 07/29/2021, patient seen eval examined during the rounds labs reviewed medicat ions reviewed, is still short of breath on activity and exertion cough is associated with sputum but slight and now no more hemoptysis is seen, BUN/creatinine is up to 83/2.47, CBC stable, oxygen saturation 97% on 2 L nasal cannula hemodynamic status stable, he remains on IV steroids breathing treat ments antibiotics and steroids appeared to be responding well also has COVID-19 infection 07/28/2021, patient seen eval reexamined during the rounds labs reviewed medications reviewed still have ongoing cough on however 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 is 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, no more hemoptysis seen, Sputum culture no pathologic organism have been seen, patient remains afebrile, with oxygen saturation of 91-92% room air, uterus chest x-ray shows slight improvement in bilateral basal infiltrate, labs reviewed today white cell count within normal limit potassium is 5.7 BUN/creatinine is 77 and 2.4, 07/25/2021, patient seen eval examined during the rounds labs reviewed medications reviewed, patient has intermittent cough and he is producing clear to yellow sputum mixed with intermittent stye streaks of blood, more short of breath on 2 L oxygen, discussed with infectious disease services will start patient on IV steroids antibiotics send sputum for Gram stain and culture 07/24/2021, patient seen eval examined during the rounds overall no significant change in saturation 95% on room air, patient remains on oral steroids Decadron 6 mg daily, tolerating well today's x-ray reviewed some streak-like infiltrate at the bases cannot be excluded or perihilar infiltrate 07/23/2021, patient seen eval examined in follow-up, respiratory status not much change, chest x-ray reviewed possible interstitial pattern cannot be excluded, patient remains on room air as saturation 94% with stable hemodynamics, blood pressure is the 110/60, patient remains on bronchodilator continuation of home medications including liquids along with daily 6 mg of Decadron, patient has been restarted on her midodrine Patient is a 89-year-old male came into the hospital with generalized weakness and fall related to weakness, patient sees Dr. Yadav for primary care activities, cagle denies any night sweats fever or chills denies any chest pain or radiation of pain, no fever no bowel or bladder related problem, patient does have cough with sputum production his labs were significant for a hemoglobin of 12.6, platelet count of 10 7000, BUN/creatinine 56/2.27, glucose is 210, troponin 0.055 0.0 6 AM 0.047, oxygen saturation is 90% to 95% room air improved to, "test came back positive, chest x-ray and rib x-ray stable pacemaker and wires no infiltrate or heart failure identified no pneumothorax, currently patient is treated with bronchodilators continuation of home medications including amiodarone and requests primary History is significant for coronary artery disease, COPD, GERD, deafness, dyslipidemia, degenerative joint disease osteoarthritis history of pneumonia and sleep apnea Past surgical history significant for a bypass surgery, cardiac cath and stent placement and hernia repair orthopedic repair history of pacemaker insertion, stents no history of smoking through abuse and substance use Objective - Vital Signs Vital signs: Vital Signs Temp 98.0 F 08/04/21 13:51 Pulse 50 L 08/04/21 13:51 Resp 19 08/04/21 13:51 BP 124/66 08/04/21 13:51 Pulse Ox 89 L 08/04/21 13:51 Intake & Output 08/03/21 08/04/21 08/04/21 18:59 06:59 18:59 Output Total 1100 Balance -1100 Output: Urine 1100 Other: Voiding Method Urinal # Voids 4 # Bowel Movements 1 - Exam - Exam - Constitutional General appearance: average body habitus, cooperative - EENT Eyes: PERRLA Ears: bilateral: normal - Neck Carotids: bilateral: upstroke normal Thyroid: bilateral: normal size - Respiratory Respiratory: bilateral: CTA - Cardiovascular Rhythm: regular Heart sounds: normal: S1, S2 - Gastrointestinal General gastrointestinal: soft - Neurologic Neurologic: CNII-XII intact - Musculoskeletal Musculoskeletal: gait normal, generalized weakness, strength equal bilaterally - Psychiatric Psychiatric: A&O x's 3, appropriate affect, intact judgment & insight - Labs CBC & Chem 7: 07/30/21 05:45 08/04/21 06:12 Labs: Abnormal Lab Results - Last 24 Hours (Table) 08/03/21 08/03/21 08/04/21 Range/Units 16:30 20:39 06:12 BUN 103 H* (9-20) mg/dL Creatinine 2.52 H (0.66-1.25) mg/dL Glucose 140 H (74-99) mg/dL POC Glucose (mg/dL) 182 H 195 H (75-99) mg/dL Calcium 8.0 L (8.4-10.2) mg/dL 08/04/21 08/04/21 Range/Units 07:25 11:33 BUN (9-20) mg/dL Creatinine (0.66-1.25) mg/dL Glucose (74-99) mg/dL POC Glucose (mg/dL) 133 H 232 H (75-99) mg/dL Calcium (8.4-10.2) mg/dL Assessment and Plan Assessment: Likely gram-negative pneumonia/mixed bacterial pneumonia status post antibiotic Intermittent hemoptysis, improving and resolved Generalized weakness Fall related to weakness Acute on chronic kidney injury COVID-19 infection GERD BPH Dyslipidemia Coronary artery disease with history of CABG and stent placement Plan: Off of Oral Augmentin Continue Hexadrol Reviewed results of sputum for Gram stain and culture Continue deep breathing sense incentive spirometry PT OT evaluation ECF/rehab evaluation for placement Renal functions remain elevated but stable Long-term prognosis poor Time with Patient: Greater than 30
[2021-08-04 16:42] LABS: Glucose,Whole Blood 200 mg/dL (75-99)
[2021-08-04 20:06] LABS: Glucose,Whole Blood 144 mg/dL (75-99)
[2021-08-04] MEDS: MONTELUKAST 10 MG TAB PO SCH (20:30)
[2021-08-04] MEDS: CHOLECALCIFEROL 25 MCG (1000 IU) TABLET PO SCH (20:31)
[2021-08-04] MEDS: METOPROLOL SUCCINATE (ER) 25 MG TAB.ER.24H PO SCH (20:31)
[2021-08-04] MEDS: ATORVASTATIN 20 MG TAB PO SCH (20:31)
[2021-08-04] MEDS: AMIODARONE 200 MG TAB PO SCH (20:32)
--- NOTE | 2021-08-05 05:55 | PN ---
PROGRESS NOTE DATE OF SERVICE: 08/04/2021 REASON FOR FOLLOWUP: 1. Pneumonia. 2. Diarrhea. INTERVAL HISTORY: The patient is afebrile. The patient is currently breathing comfortably. The patient denies having any chest pain. No worsening shortness of breath or cough. No abdominal pain. No diarrhea. PHYSICAL EXAMINATION: Blood pressure 120/69, pulse of 50, temperature 97.8. He is 93% on 3 L nasal cannula. General description is an elderly male lying in bed in no distress. Respiratory system: Unlabored breathing, decreased intensity of breath sounds. No wheeze. Heart S1, S2. Regular rate and rhythm. Abdomen soft, no tenderness. LABS: BUN 103, creatinine is 2.52. Sputum has been negative. DIAGNOSTIC IMPRESSION AND PLAN: 1. Patient admitted to the hospital with pneumonia. Initial diagnosis of COVID-19 with possible secondary bacterial pneumonia. Patient completed his antibiotic therapy, currently being monitored closely off antibiotic. 2. Diarrhea, resolved. Waiting for the kidney function to improve before discharge. Continue supportive care. MMODL / IJN: [id number] /
--- NOTE | 2021-08-05 06:11 | P.CONS ---
History of Present Illness - Chief Complaint Medical debility - History of Present Illness I had the opportunity to see patient for inpatient rehab consultation with regard to medical debility. Patient visited to [facility] July with generalized weakness and Covid positive pneumonia. Seen by Dr. Faustin. Seen by Dr. Fernández for acute on chronic kidney disease. Abdominal ultrasound demonstrated diminutive right kidney with cyst. Chest x-ray with cardiomegaly, AICD, decreasing lower lobe opacities. Seen by therapies. PT reports two- person moderate assistance bed and functional mobility. OT reports minimal assistance for upper dressing, 2 person maximal assist for lower dressing, maximal assistance for bathing and toileting and two-person assistance functional mobility and transfer. Previous functional history as elicited from patient: 89-year-old right-handed white male who is single lives in one floor home alone. Retired. Describes her cc Meals on Wheels. Otherwise independent with own laundry, driving, sitdown shower and gait with [address] Dg Yadav. Denies tobacco or alcohol. Review of Systems Review of systems: ENT: Denies sneezes or discharge. Eyes: Denies discharge or photophobia. Cardiac: Denies chest pain or palpitation. Pulmonary: Cough and shortness of breath. Gastrointestinal: Denies nausea, emesis, constipation, diarrhea. Genitourinary: Denies discharge or frequency. Musculoskeletal: Denies muscle or bone aches. Neurologic: Generalized weakness. Endocrine: Denies shakes or sweats. Oncology: Denies cancers. Dermatologic: Denies rash, itching, pruritus. ALLERGY/immunology: Denies sneezes, rashes. Past Medical History Past Medical History: Coronary Artery Disease (CAD), Cancer, COPD, GERD/Reflux, Hearing Disorder / Deafness, Hyperlipidemia, Osteoarthritis (OA), Pneumonia, Prostate Disorder, Renal Disease, Sleep Apnea/CPAP/BIPAP, Thyroid Disorder Additional Past Medical History / Comment(s): GOUT; not currently using CPAP, see Dr Sanchez H&P, edema left lower leg, bruises easily, hx skin cancer Last Myocardial Infarction Date:: 2001 History of Any Multi-Drug Resistant Organisms: None Reported Past Surgical History: AICD, Coronary Bypass/CABG, Heart Catheterization With Stent, Hernia Repair, Orthopedic Surgery, Pacemaker Additional Past Surgical History / Comment(s): 4 Vessel CABG 2002. 2 STENTS 2001. HAS 2 PINS IN RT ACHILLES. parathyroid surgery, AICD/PACEMAKER, [facility]. 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, recent biopsy left ear, maximus cataracts Past Anesthesia/Blood Transfusion Reactions: No Reported Reaction Date of Last Stent Placement:: UNK Type of Cardiac Device: Permanent Pacemaker, AICD Device Placement Date:: unknown Past Psychological History: No Psychological Hx Reported Past Alcohol Use History: None Reported Past Drug Use History: None Reported - Past Family History Father Family Medical History: Congestive Heart Failure (CHF), Diabetes Mellitus Additional Family Medical History / Comment(s): AT AGEG 66 FROM CHF Mother Family Medical History: COPD Additional Family Medical History / Comment(s): AT AGE FROM ANEURYSM Sister(s) Family Medical History: Cancer Medications and Allergies Home Medications Medication Instructions Recorded Confirmed Type Allopurinol [Zyloprim] 300 mg PO DAILY 07/22/21 07/22/21 History Amiodarone [Cordarone] 200 mg PO DAILY 07/22/21 07/22/21 History Apixaban [Eliquis] 2.5 mg PO BID 07/22/21 07/22/21 History Atorvastatin [Lipitor] 20 mg PO HS 07/22/21 07/22/21 History Cholecalciferol [Vitamin D3 (25 25 mcg PO DAILY 07/22/21 07/22/21 History Mcg = 1000 Iu)] Empagliflozin [Jardiance] 10 mg PO DAILY 07/22/21 07/22/21 History Finasteride [Proscar] 5 mg PO DAILY 07/22/21 07/22/21 History Furosemide [Lasix] 20 mg PO DAILY 07/22/21 07/22/21 History Ipratropium [place] [Atrovent Hfa] 2 puff INHALATION RT-DAILY 07/22/21 07/22/21 History Loratadine [Claritin] 10 mg PO DAILY 07/22/21 07/22/21 History Magnesium Oxide [Mag-Ox] 400 mg PO DAILY 07/22/21 07/22/21 History Metoprolol Succinate [Toprol XL] 25 mg PO DAILY 07/22/21 07/22/21 History Midodrine [ProAmatine] 5 mg PO TID 07/22/21 07/22/21 History Montelukast [Singulair] 10 mg PO DAILY 07/22/21 07/22/21 History Olopatadine HCl [Pataday] 1 drop BOTH EYES DAILY 07/22/21 07/22/21 History Omeprazole [PriLOSEC] 20 mg PO AC-[id number] 07/22/21 07/22/21 History Tamsulosin [Flomax] 0.4 mg PO BID 07/22/21 07/22/21 History Allergies Allergy/AdvReac Type Severity Reaction Status Date / Time smoke Allergy Dyspnea Uncoded 07/22/21 13:49 Physical Exam Vitals: Vital Signs Temp Pulse Resp BP Pulse Ox 08/05/21 05:30 97.7 F 50 L 15 121/64 92 L 08/05/21 01:34 97.7 F 50 L 16 115/57 93 L 08/04/21 21:57 97.8 F 50 L 16 120/69 93 L 08/04/21 18:21 98.4 F 50 L 18 122/65 96 08/04/21 13:51 98.0 F 50 L 19 124/66 89 L 08/04/21 12:41 97.6 F 50 L 17 121/61 90 L 08/04/21 06:53 97.8 F 50 L 122/55 90 L Intake and Output 08/04/21 08/04/21 08/05/21 14:59 22:59 06:59 Output Total 655 477 8619 Balance -800 -301 -1450 Output: Urine 658 041 1418 Stool 1 Other: Voiding Method Urinal # Voids 1 Weight 84 kg Skin: Good color, texture, turgor. General: Medium build and comfortable appearance. Head: Normocephalic, atraumatic. Eyes: Symmetric. Pupils equal round. Ears: Symmetric. Hearing within normal limits. Mouth: Clear. Neck: Supple. Carotid without bruit. Cardiac: Regular rate and rhythm. Lungs: Clear anteriorly and posteriorly. Abdomen: Soft active nontender. Extremities: Normal tone. Neurological: Mental status: Alert, cooperative, pleasant, fatigued. Cranial nerves: Symmetric facial tone and trapezius. Motor: Active movement all 4 limbs but legs less than antigravity. Sensation: Intact throughout. DTRs: Symmetric and equal throughout. Mobility: Requires physical assist for bed mobility. Results CBC & Chem 7: 07/30/21 05:45 08/04/21 06:12 Labs: Abnormal Lab Results - Last 24 Hours (Table) 08/04/21 08/04/21 08/04/21 Range/Units 06:12 07:25 11:33 BUN 103 H* (9-20) mg/dL Creatinine 2.52 H (0.66-1.25) mg/dL Glucose 140 H (74-99) mg/dL POC Glucose (mg/dL) 133 H 232 H (75-99) mg/dL Calcium 8.0 L (8.4-10.2) mg/dL 08/04/21 08/04/21 Range/Units 16:40 20:01 BUN (9-20) mg/dL Creatinine (0.66-1.25) mg/dL Glucose (74-99) mg/dL POC Glucose (mg/dL) 200 H 144 H (75-99) mg/dL Calcium (8.4-10.2) mg/dL Assessment and Plan (1) CHRISTIANO (acute kidney injury) Current Visit: Yes Status: Acute Code(s): N17.9 - ACUTE KIDNEY FAILURE, UNSPECIFIED SNOMED Code(s): 93821234 (2) Pneumonia due to COVID-19 virus Current Visit: Yes Status: Acute Code(s): U07.1 - COVID-19; J12.82 - PNEUMONIA DUE TO CORONAVIRUS DISEASE 2019 SNOMED Code(s): 220447512761918598 (3) CHF (congestive heart failure) Current Visit: No Status: Acute Code(s): I50.9 - HEART FAILURE, UNSPECIFIED SNOMED Code(s): 90925875 Plan: Comments: At this time PT and OT are ongoing. Patient currently two-person assist. Endurance too low for inpatient rehab at this time. Currently require 24/7 care multiple persons and should begin to consider alternative discharge planning.
--- NOTE | 2021-08-05 06:54 | PN ---
PROGRESS NOTE Pneumonia, Covid pneumonia, blood-stained sputum secondary to pneumonia, generalized weakness, fall related to weakness, Covid 19 infection, GERD, BPH, dyslipidemia, coronary artery disease, history of stent. Sugars in the mid 200s, he is on 3 L oxygen, intermittent cough and congestion and shortness of breath. Cardiovascular S1, S2. Lungs scattered rhonchi and wheeze. Hematology negative Homans. : No suprapubic tenderness. Plan is to wean off oxygen and get some physical therapy rehab, PT/OT. BUN is 103, creatinine of 2.52, hemoglobin 12.3. ASSESSMENT: 1. Gastroesophageal reflux disease. 2. Benign prostatic hypertrophy. 3. Dyslipidemia. 4. Coronary artery disease. 5. Covid pneumonia. 6. Generalized weakness. 7. Fall secondary to weakness. 8. Chronic kidney injury. 9. Hemoptysis. 10.Gram-negative pneumonia. Continue on Hexadrol, finish antibiotics, PT/OT, ECF placement possibly Maureen or Dr. Albrecht. Prognosis guarded. MMODL / IJN: [id number] /
[2021-08-05 07:03] LABS: Glucose,Whole Blood 110 mg/dL (75-99)
[2021-08-05] MEDS: INSULIN ASPART (NovoLOG) 100 UNIT/ML VIAL SQ SCH ×4 (07:52→21:15)
[2021-08-05] MEDS: APIXABAN 2.5 MG TABLET PO SCH ×2 (08:20→21:10)
[2021-08-05] MEDS: PANTOPRAZOLE 40 MG TABLET PO SCH (08:20)
[2021-08-05] MEDS: ZINC SULFATE 220 MG CAP PO SCH (08:21)
[2021-08-05] MEDS: TAMSULOSIN 0.4 MG CAP.ER.24H PO SCH (08:21)
[2021-08-05] MEDS: allopurinoL 300 MG TAB PO SCH (08:21)
[2021-08-05] MEDS: ASCORBIC ACID 500 MG TAB PO SCH (08:21)
[2021-08-05] MEDS: guaiFENesin 600 MG TABLET.ER PO SCH ×2 (08:21→21:10)
[2021-08-05] MEDS: FUROSEMIDE 10 MG/ML 10 ML VIAL IV SCH ×2 (08:21→21:10)
[2021-08-05] MEDS: BENZONATATE 100 MG CAP PO SCH ×3 (08:21→21:10)
[2021-08-05] MEDS: MIDODRINE 5 MG TAB PO SCH ×3 (08:21→17:39)
[2021-08-05] MEDS: dexAMETHasone 2 MG TAB PO SCH (08:21)
[2021-08-05] MEDS: SODIUM BICARBONATE TAB 650 MG TAB PO SCH ×3 (08:21→21:10)
[2021-08-05] MEDS: FINASTERIDE 5 MG TAB PO SCH (08:21)
[2021-08-05] MEDS: CHOLESTYRAMINE (WITH SUGAR) 4 GM PACKET PO SCH ×2 (08:22→17:39)
[2021-08-05] MEDS: KETOTIFEN 0.025% OPHTH DROPS 5 ML BTL BOTH EYES SCH ×2 (08:22→21:13)
--- NOTE | 2021-08-05 09:49 | P.PN ---
Subjective Progress Note Date: 08/05/21 Principal diagnosis: Pneumonia Blood stained sputum secondary pneumonia Generalized weakness Fall related to weakness COVID-19 infection GERD BPH Dyslipidemia Coronary artery disease with history of CABG and stent placement 08/05/2021, patient seen eval examined during the rounds labs reviewed medications reviewed care plan discussed, patient remains 2-3 L oxygen, alea [place]chaca on 3 L with the saturation 92%, afebrile, 08/04/2021, patient seen eval examined during the rounds labs reviewed medications reviewed sitting upright in chair breathing comfortably, remains on 3 L oxygen, intermittent cough is present mostly is dry now, meds reviewed, remains on bronchodilator, direct oral anticoagulant, oral Decadron, off of antibiotics now him a BUN/creatinine is 103/2.52, sugars 232, last covid testing was performed on the of this month we'll repeat as symptoms significantly improved, and we'll help placement 08/01/2021, patient seen and evaluated examined during the rounds labs reviewed medications reviewed care plan discussed with the staff and patient at length, hemodynamic status stable however blood pressure slightly high, just received his medications from this morning, intermittent cough is present sputum is mucoid thick, patient currently on 2 L oxygen, independently has been going back and forth in room air oxygen, patient has been switched to oral Augmentin by primary service, remains on direct oral anticoagulant, patient lives by himself at home, extremely weak and requires support to stand currently in the process of being evaluated for placement ECF for short-term rehab 07/31/2021, patient seen eval examined during the rounds labs reviewed medications reviewed care plan discussed, respiratory status continued to be stable, patient now is on room air breathing comfortably, feet, does have cough sputum is light yellow 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, PERRL no hemoptysis has been seen, patient is off of IV steroids for now on Decadron for COVID-19 pneumonia inflammation, she remains on broad-spectrum antibiotics with Zosyn for bilateral basal p neumonia which clinically has been improving, but however still needs it, 07/30/2021, patient seen eval examined during the rounds labs reviewed medications reviewed care plan discussed, respiratory status remains stable intermittently patient has been on room air as well, cough is associated with sputum which is light in color and appearance no more hemoptysis seen, today's labs are reviewed white cell count is 7000 hemoglobin and hematocrit 12 and 39, platelets are 1 46,000, potassium is 5.3 showing a downward trend BUN/creatinine elevated but remains stable 82/2.51, patient back on Hexadrol off of IV steroids 07/29/2021, patient seen eval examined during the rounds labs reviewed medicat ions reviewed, is still short of breath on activity and exertion cough is associated with sputum but slight and now no more hemoptysis is seen, BUN/creatinine is up to 83/2.47, CBC stable, oxygen saturation 97% on 2 L nasal cannula hemodynamic status stable, he remains on IV steroids breathing treat ments antibiotics and steroids appeared to be responding well also has COVID-19 infection 07/28/2021, patient seen eval reexamined during the rounds labs reviewed medications reviewed still have ongoing cough on however sputum is rn clinical appeals 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, no more hemoptysis seen, Sputum culture no pathologic organism have been seen, patient remains afebrile, with oxygen saturation of 91-92% room air, uterus chest x-ray shows slight improvement in bilateral basal infiltrate, labs reviewed today white cell count within normal limit potassium is 5.7 BUN/creatinine is 77 and 2.4, 07/25/2021, patient seen eval examined during the rounds labs reviewed medications reviewed, patient has intermittent cough and he is producing clear to yellow sputum mixed with intermittent stye streaks of blood, more short of breath on 2 L oxygen, discussed with infectious disease services will start patient on IV steroids antibiotics send sputum for Gram stain and culture 07/24/2021, patient seen eval examined during the rounds overall no significant change in saturation 95% on room air, patient remains on oral steroids Decadron 6 mg daily, tolerating well today's x-ray reviewed some streak-like infiltrate at the bases cannot be excluded or perihilar infiltrate 07/23/2021, patient seen eval examined in follow-up, respiratory status not much change, chest x-ray reviewed possible interstitial pattern cannot be excluded, patient remains on room air as saturation 94% with stable hemodynamics, blood pressure is the 110/60, patient remains on bronchodilator continuation of home medications including liquids along with daily 6 mg of Decadron, patient has been restarted on her midodrine Patient is a 89-year-old male came into the hospital with generalized weakness and fall related to weakness, patient sees Dr. Yadav for primary care activities, cagle denies any night sweats fever or chills denies any chest pain or radiation of pain, no fever no bowel or bladder related problem, patient does have cough with sputum production his labs were significant for a hemoglobin of 12.6, platelet count of 10 7000, BUN/creatinine 56/2.27, glucose is 210, troponin 0.055 0.0 6 AM 0.047, oxygen saturation is 90% to 95% room air improved to, "test came back positive, chest x-ray and rib x-ray stable pacemaker and wires no infiltrate or heart failure identified no pneumothorax, currently patient is treated with bronchodilators continuation of home medications including amiodarone and requests primary History is significant for coronary artery disease, COPD, GERD, deafness, dyslipidemia, degenerative joint disease osteoarthritis history of pneumonia and sleep apnea Past surgical history significant for a bypass surgery, cardiac cath and stent placement and hernia repair orthopedic repair history of pacemaker insertion, stents no history of smoking through abuse and substance use Objective - Vital Signs Vital signs: Vital Signs Temp 97.7 F 08/05/21 05:30 Pulse 50 L 08/05/21 05:30 Resp 15 08/05/21 05:30 BP 121/64 08/05/21 05:30 Pulse Ox 92 L 08/05/21 05:30 Intake & Output 08/04/21 08/05/21 08/05/21 18:59 06:59 18:59 Output Total 800 1751 Balance -800 -1751 Weight 84 kg Output: Urine 800 1750 Stool 1 Other: Voiding Method Urinal # Voids 1 - Exam - Exam - Constitutional General appearance: average body habitus, cooperative - EENT Eyes: PERRLA Ears: bilateral: normal - Neck Carotids: bilateral: upstroke normal Thyroid: bilateral: normal size - Respiratory Respiratory: bilateral: CTA - Cardiovascular Rhythm: regular Heart sounds: normal: S1, S2 - Gastrointestinal General gastrointestinal: soft - Neurologic Neurologic: CNII-XII intact - Musculoskeletal Musculoskeletal: gait normal, generalized weakness, strength equal bilaterally - Psychiatric Psychiatric: A&O x's 3, appropriate affect, intact judgment & insight - Labs CBC & Chem 7: 07/30/21 05:45 08/04/21 06:12 Labs: Abnormal Lab Results - Last 24 Hours (Table) 08/04/21 08/04/21 08/04/21 Range/Units 11:33 16:40 20:01 POC Glucose (mg/dL) 232 H 200 H 144 H (75-99) mg/dL 08/05/21 Range/Units 07:01 POC Glucose (mg/dL) 110 H (75-99) mg/dL Assessment and Plan Assessment: Likely gram-negative pneumonia/mixed bacterial pneumonia status post antibiotic Intermittent hemoptysis, improving and resolved Generalized weakness Fall related to weakness Acute on chronic kidney injury COVID-19 infection GERD BPH Dyslipidemia Coronary artery disease with history of CABG and stent placement Plan: Off of Oral Augmentin Continue Hexadrol Reviewed results of sputum for Gram stain and culture Continue deep breathing sense incentive spirometry PT OT evaluation ECF/rehab evaluation for placement Renal functions remain elevated but stable Long-term prognosis poor Time with Patient: Greater than 30
[2021-08-05 11:59] LABS: Glucose,Whole Blood 144 mg/dL (75-99)
[2021-08-05] MEDS: ALBUTEROL HFA INHALER INHALATION PRN (12:34)
--- NOTE | 2021-08-05 13:41 | PN ---
PROGRESS NOTE Patient is seen for followup for CKD and acute kidney injury. Patient's renal function is fairly stable. He is currently being treated for Covid pneumonia. He has been voiding on his own. A 24 hour output documented 2.5 L. EXAMINATION: Today blood pressure 121/64, heart rate 50 per minute. He is afebrile. Examination shows significant edema bilateral lower extremities. Legs are wrapped. SCREEN VENT BINDER exam grossly intact. Lungs and heart are not examined. LAB: From August 04 show BUN 103, creatinine 2.5, sodium 138, potassium 4.5. ASSESSMENT: 1. Acute kidney injury. Renal function currently stable with creatinine staying at 2.5. Etiology is underlying COVID pneumonia and acute tubular necrosis as well as cardiorenal syndrome. The patient has benign UA and atrophic right kidney. Left kidney not visualized. 2. Chronic kidney disease stage 3B. Baseline creatinine 1.5-2 secondary to nephrosclerosis. 3. Covid pneumonia with superimposed bacterial pneumonia. 4. Fluid overload maintained on IV Lasix. PLAN: Continue with the IV Lasix for now. Avoid nephrotoxic agents. Repeat labs in a.m. MMODL / IJN: [id number] /
[2021-08-05 16:38] LABS: Glucose,Whole Blood 199 mg/dL (75-99)
[2021-08-05 20:46] LABS: Glucose,Whole Blood 178 mg/dL (75-99)
[2021-08-05] MEDS: ATORVASTATIN 20 MG TAB PO SCH (21:10)
[2021-08-05] MEDS: METOPROLOL SUCCINATE (ER) 25 MG TAB.ER.24H PO SCH (21:10)
[2021-08-05] MEDS: AMIODARONE 200 MG TAB PO SCH (21:10)
[2021-08-05] MEDS: MONTELUKAST 10 MG TAB PO SCH (21:10)
[2021-08-05] MEDS: CHOLECALCIFEROL 25 MCG (1000 IU) TABLET PO SCH (21:10)
--- NOTE | 2021-08-05 22:28 | PN ---
PROGRESS NOTE DATE OF SERVICE: 08/05/2021 REASON FOR FOLLOWUP: Pneumonia. INTERVAL HISTORY: The patient is afebrile. The patient is currently breathing comfortably. The patient denies having any chest pain or worsening cough or sputum production. No abdominal pain or diarrhea. PHYSICAL EXAMINATION: His blood pressure is 122/73 with a pulse of 50, temperature of 98.8. General description is an elderly male lying in bed in no distress. Respiratory system: Unlabored breathing, decreased intensity of breath sounds. No wheeze. Heart S1, S2. Regular rate and rhythm. Abdomen soft, no tenderness. LABS: No new labs have been obtained today. DIAGNOSTIC IMPRESSION AND PLAN: Patient with pneumonia. Initial concern for COVID, subsequently concern for secondary bacterial pneumonia, for which the patient completed his antibiotic therapy. The patient is currently covered with Eliquis, dexamethasone, zinc and ascorbic acid; to continue along with respiratory support and monitor his clinical course closely. MMODL / IJN: [id number] /
--- NOTE | 2021-08-05 23:56 | PN ---
PROGRESS NOTE This 89-year-old white male with COVID pneumonia has a lot of phlegm production, cough, shortness of breath. He is down to 2 to 3 L. Cardiovascular S1, S2. He has a congested cough. Lungs are mostly clear. Abdomen is soft. Extremities 2+ edema. ASSESSMENT: COVID pneumonia, secondary bacterial pneumonia. Continue with Eliquis, dexamethasone, zinc, ascorbic acid. Prognosis guarded. Possibly send to the rehab center for physical therapy. He has significant weakness. MMODL / IJN: [id number] /
[2021-08-06 07:06] LABS: Glucose,Whole Blood 116 mg/dL (75-99)
[2021-08-06] MEDS: ALBUTEROL HFA INHALER INHALATION PRN ×2 (07:27→12:10)
[2021-08-06] MEDS: INSULIN ASPART (NovoLOG) 100 UNIT/ML VIAL SQ SCH ×4 (07:30→22:02)
[2021-08-06] MEDS: CHOLESTYRAMINE (WITH SUGAR) 4 GM PACKET PO SCH ×2 (07:59→15:40)
[2021-08-06] MEDS: FUROSEMIDE 10 MG/ML 10 ML VIAL IV SCH ×2 (07:59→22:00)
[2021-08-06] MEDS: BENZONATATE 100 MG CAP PO SCH ×3 (08:00→21:59)
[2021-08-06] MEDS: TAMSULOSIN 0.4 MG CAP.ER.24H PO SCH (08:00)
[2021-08-06] MEDS: ASCORBIC ACID 500 MG TAB PO SCH (08:00)
[2021-08-06] MEDS: allopurinoL 300 MG TAB PO SCH (08:00)
[2021-08-06] MEDS: MIDODRINE 5 MG TAB PO SCH ×3 (08:00→15:40)
[2021-08-06] MEDS: FINASTERIDE 5 MG TAB PO SCH (08:00)
[2021-08-06] MEDS: APIXABAN 2.5 MG TABLET PO SCH ×2 (08:00→21:59)
[2021-08-06] MEDS: guaiFENesin 600 MG TABLET.ER PO SCH ×2 (08:00→21:59)
[2021-08-06] MEDS: PANTOPRAZOLE 40 MG TABLET PO SCH (08:00)
[2021-08-06] MEDS: SODIUM BICARBONATE TAB 650 MG TAB PO SCH ×3 (08:00→21:59)
[2021-08-06] MEDS: dexAMETHasone 2 MG TAB PO SCH (08:00)
[2021-08-06] MEDS: ZINC SULFATE 220 MG CAP PO SCH (08:00)
[2021-08-06] MEDS: KETOTIFEN 0.025% OPHTH DROPS 5 ML BTL BOTH EYES SCH ×2 (08:01→22:01)
--- NOTE | 2021-08-06 10:11 | P.PN ---
Subjective Progress Note Date: 08/06/21 Principal diagnosis: Pneumonia Blood stained sputum secondary pneumonia Generalized weakness Fall related to weakness COVID-19 infection GERD BPH Dyslipidemia Coronary artery disease with history of CABG and stent placement 08/06/2021, patient seen and evaluated examined, respiratory status remained stable, oxygen saturation on 3 L nasal cannula is 91% for pressure is 119/56 patient remains afebrile, tolerating bronchodilator as well, remains on low-dose diuretic anticoagulant, patient is off of antibiotics, on diuretics, Hexadrol milligrams daily 08/05/2021, patient seen eval examined during the rounds labs reviewed medications reviewed care plan discussed, patient remains 2-3 L oxygen, currently on 3 L with the saturation 92%, Ms. afebrile, 08/04/2021, patient seen eval examined during the rounds labs reviewed medications reviewed sitting upright in chair breathing comfortably, remains on 3 L oxygen, intermittent cough is present mostly is dry now, meds reviewed, remains on bronchodilator, direct oral anticoagulant, oral Decadron, off of antibiotics now him a BUN/creatinine is 103/2.52, sugars 232, last covid testing was performed on the of this month we'll repeat as symptoms significantly improved, and we'll help placement 08/01/2021, patient seen and evaluated examined during the rounds labs reviewed medications reviewed care plan discussed with the staff and patient at length, hemodynamic status stable however blood pressure slightly high, just received his medications from this morning, intermittent cough is present sputum is mucoid thick, patient currently on 2 L oxygen, independently has been going back and forth in room air oxygen, patient has been switched to oral Augmentin by primary service, remains on direct oral anticoagulant, patient lives by himself at home, extremely weak and requires support to stand currently in the process of being evaluated for placement ECF for short-term rehab 07/31/2021, patient seen eval examined during the rounds labs reviewed medications reviewed care plan discussed, respiratory status continued to be stable, patient now is on room air breathing comfortably, feet, does have cough sputum is light yellow 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, PERRL no hemoptysis has been seen, patient is off of IV steroids for now on Decadron for COVID-19 pneumonia inflammation, she remains on broad-spectrum antibiotics with Zosyn for bilateral basal pneumonia which clinically has been improving, but however still needs it, 07/30/2021, patient seen eval examined during the rounds labs reviewed medications reviewed care plan discussed, respiratory status remains stable intermittently patient has been on room air as well, cough is associated with sputum which is light in color and appearance no more hemoptysis seen, today's labs are reviewed white cell count is 7000 hemoglobin and hematocrit 12 and 39, platelets are 1 46,000, potassium is 5.3 showing a downward trend BUN/creatinine elevated but remains stable 82/2.51, patient back on Hexadrol off of IV steroids 07/29/2021, patient seen eval examined during the rounds labs reviewed medications reviewed, is still short of breath on activity and exertion cough is associated with sputum but slight and now no more hemoptysis is seen, BUN/creatinine is up to 83/2.47, CBC stable, oxygen saturation 97% on 2 L nasal cannula hemodynamic status stable, he remains on IV steroids breathing treatments antibiotics and steroids appeared to be responding well also has COVID-19 infection 07/28/2021, patient seen eval reexamined during the rounds labs reviewed medic ations reviewed still have ongoing cough on however sputum is social insurance analyst 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, no more hemoptysis seen, Sputum culture no pathologic organism have been seen, patient remains afebrile, with oxygen saturation of 91-92% room air, uterus chest x-ray shows slight improvement in bilateral basal infiltrate, labs reviewed today white cell count within normal limit potassium is 5.7 BUN/creatinine is 77 and 2.4, 07/25/2021, patient seen eval examined during the rounds labs reviewed medications reviewed, patient has intermittent cough and he is producing clear to yellow sputum mixed with intermittent stye streaks of blood, more short of breath on 2 L oxygen, discussed with infectious disease services will start patient on IV steroids antibiotics send sputum for Gram stain and culture 07/24/2021, patient seen eval examined during the rounds overall no significant change in saturation 95% on room air, patient remains on oral steroids Decadron 6 mg daily, tolerating well today's x-ray reviewed some streak-like infiltrate at the bases cannot be excluded or perihilar infiltrate 07/23/2021, patient seen eval examined in follow-up, respiratory status not much change, chest x-ray reviewed possible interstitial pattern cannot be excluded, patient remains on room air as saturation 94% with stable hemodynamics, blood pressure is the 110/60, patient remains on bronchodilator continuation of home medications including liquids along with daily 6 mg of Decadron, patient has been restarted on her midodrine Patient is a 89-year-old male came into the hospital with generalized weakness and fall related to weakness, patient sees Dr. Yadav for primary care activities, cagle denies any night sweats fever or chills denies any chest pain or radiation of pain, no fever no bowel or bladder related problem, patient does have cough with sputum production his labs were significant for a hemoglobin of 12.6, platelet count of 10 7000, BUN/creatinine 56/2.27, glucose is 210, troponin 0.055 0.0 6 AM 0.047, oxygen saturation is 90% to 95% room air improved to, "test came back positive, chest x-ray and rib x-ray stable pacemaker and wires no infiltrate or heart failure identified no pneumothorax, currently patient is treated with bronchodilators continuation of home medications including amiodarone and requests primary History is significant for coronary artery disease, COPD, GERD, deafn ess, dyslipidemia, degenerative joint disease osteoarthritis history of pneumonia and sleep apnea Past surgical history significant for a bypass surgery, cardiac cath and stent placement and hernia repair orthopedic repair history of pacemaker insertion, stents no history of smoking through abuse and substance use Objective - Vital Signs Vital signs: Vital Signs Temp 97.6 F 08/06/21 05:49 Pulse 50 L 08/06/21 05:49 Resp 20 08/06/21 05:49 BP 119/56 08/06/21 05:49 Pulse Ox 91 L 08/06/21 05:49 Intake & Output 08/05/21 08/06/21 08/06/21 18:59 06:59 18:59 Intake Total 480 Output Total 650 600 Balance -650 -120 Intake: Oral 480 Output: Urine 650 600 Other: # Voids 1 - Exam - Exam - Constitutional General appearance: average body habitus, cooperative - EENT Eyes: PERRLA Ears: bilateral: normal - Neck Carotids: bilateral: upstroke normal Thyroid: bilateral: normal size - Respiratory Respiratory: bilateral: CTA - Cardiovascular Rhythm: regular Heart sounds: normal: S1, S2 - Gastrointestinal General gastrointestinal: soft - Neurologic Neurologic: CNII-XII intact - Musculoskeletal Musculoskeletal: gait normal, generalized weakness, strength equal bilaterally - Psychiatric Psychiatric: A&O x's 3, appropriate affect, intact judgment & insight - Labs CBC & Chem 7: 07/30/21 05:45 08/04/21 06:12 Labs: Abnormal Lab Results - Last 24 Hours (Table) 08/05/21 08/05/21 08/05/21 Range/Units 11:57 16:37 20:38 POC Glucose (mg/dL) 144 H 199 H 178 H (75-99) mg/dL 08/06/21 Range/Units 07:04 POC Glucose (mg/dL) 116 H (75-99) mg/dL Assessment and Plan Assessment: Likely gram-negative pneumonia/mixed bacterial pneumonia status post antibiotic Intermittent hemoptysis, improving and resolved Generalized weakness Fall related to weakness Acute on chronic kidney injury COVID-19 infection GERD BPH Dyslipidemia Coronary artery disease with history of CABG and stent placement Plan: Continue bronchodilators Off of Oral Augmentin Continue Hexadrol Reviewed results of sputum for Gram stain and culture Continue deep breathing sense incentive spirometry PT OT evaluation ECF/rehab evaluation for placement Renal functions remain elevated but stable Long-term prognosis poor Time with Patient: Greater than 30
[2021-08-06 11:34] LABS: Basophils # (A) 0.02 X 10*3/uL (0.00-0.10); Basophils % (A) 0.2 %; Eosinophils # (A) 0 X 10*3/uL (0.04-0.35); Eosinophils % (A) 0 %; HCT 40.6 % (39.6-50.0); HGB 12.5 g/dL (13.0-17.0); Lymphocytes # (A) 0.47 X 10*3/uL (0.90-5.00); Lymphocytes % (A) 4.3 %; MCH 29.8 pg (27.0-32.0); MCHC 30.8 g/dL (32.0-37.0); MCV 96.7 fL (80.0-97.0); Mean Platelet Volume 11.4 fL (9.5-12.2); Monocytes % (A) 4.6 %; Neutrophils # (A) 9.77 X 10*3/uL (1.80-7.70); Platelet Count 104 X 10*3/uL (140-440); RDW 16.9 % (11.5-14.5); WBC 10.86 X 10*3/uL (4.50-10.00)
[2021-08-06 11:35] LABS: Glucose,Whole Blood 209 mg/dL (75-99)
[2021-08-06 11:54] LABS: African American GFR (CKD) 26.9 (60.0-200.0); Albumin 3.2 g/dL (3.8-4.9); Albumin/Globulin Ratio 1.6 (1.60-3.17); Anion Gap 13.5 mmol/L (10.00-18.00); BUN/Creat Ratio 38.63 Ratio (12.00-20.00); Blood Urea Nitrogen 92.7 mg/dL (9.0-27.0); Calcium 8.2 mg/dL (8.7-10.3); Carbon Dioxide 25.5 mmol/L (20.0-27.5); Non-African American GFR(CKD) 23.2 (60.0-200.0); Potassium 4.7 mmol/L (3.5-5.5); Total Bilirubin 0.7 mg/dL (0.30-1.20); Total Protein 5.2 g/dL (6.2-8.2)
--- NOTE | 2021-08-06 16:03 | PN ---
PROGRESS NOTE Patient is seen for followup for chronic kidney disease. His renal function has been stable, serum creatinine mostly staying at about 2.5 to 2.4 mg/dL. Patient is currently being treated for COVID pneumonia. He is sitting up on a bedside chair. Denies any significant complaints. Patient has significant edema in lower extremities and he is maintained on IV Lasix. [id number] urine output about 1.2 L. On examination today, blood pressure was 123/67, heart rate 50 per minute. He is afebrile. Examination of lower extremities shows edema 2+ bilaterally. Both extremities are wrapped. Lungs and heart are not examined. Labs show hemoglobin 12.5 on 08/06. Sodium 144, potassium 4.7, serum creatinine 2.4 mg/dL. ASSESSMENT: 1. Chronic kidney disease secondary to nephrosclerosis, NKF stage 4. Renal function is stable. 2. Acute kidney injury associated with COVID pneumonia, acute tubular necrosis and cardiorenal syndrome. Renal function stable. UA has been benign. Patient also has an atrophic right kidney. 3. Fluid overload. Continue with IV Lasix. PLAN: Continue IV Lasix. Encourage increased oral intake. Repeat labs in a.m. Avoid nephrotoxic agents. MMODL / IJN: [id number] /
[2021-08-06 16:53] LABS: Glucose,Whole Blood 190 mg/dL (75-99)
--- NOTE | 2021-08-06 17:13 | PN ---
PROGRESS NOTE DATE OF SERVICE: 08/06/2021 REASON FOR FOLLOWUP: Pneumonia. INTERVAL HISTORY: Patient is afebrile. The patient denies having any chest pain. No shortness of breath. He did have a congested cough, not bringing up any sputum. No abdominal pain and no diarrhea has been reported by the nursing staff. PHYSICAL EXAMINATION: Blood pressure is 120/63 with a pulse of 80, temperature 98.2. He is 93% on 2 L nasal cannula. General description is an elderly male lying in bed in no distress. Respiratory system: Unlabored breathing. Decreased intensity of breath sounds. No wheeze. Heart S1, S2. Regular rate and rhythm. Abdomen soft, no tenderness. LABS: Hemoglobin is 12.5, white count 10.86, creatinine is 2.4. DIAGNOSTIC IMPRESSION/PLAN: Patient admitted to the hospital with pneumonia, initial diagnosis of Covid 19 subsequently patient with antibiotic therapy. The patient is currently on Eliquis, dexamethasone, zinc and ascorbic acid to continue along with respiratory support and monitor clinical course closely. Prognosis remains to be guarded. MMODL / IJN: [id number] /
[2021-08-06 20:07] LABS: Glucose,Whole Blood 159 mg/dL (75-99)
[2021-08-06] MEDS: CHOLECALCIFEROL 25 MCG (1000 IU) TABLET PO SCH (21:59)
[2021-08-06] MEDS: MONTELUKAST 10 MG TAB PO SCH (21:59)
[2021-08-06] MEDS: AMIODARONE 200 MG TAB PO SCH (21:59)
[2021-08-06] MEDS: METOPROLOL SUCCINATE (ER) 25 MG TAB.ER.24H PO SCH (21:59)
[2021-08-06] MEDS: ATORVASTATIN 20 MG TAB PO SCH (21:59)
--- NOTE | 2021-08-06 23:34 | PN ---
PROGRESS NOTE This 89-year-old white male has COVID-19 pneumonia, acute hypoxemic respiratory distress. Weaned down to 3 L. He has secondary pneumonia on top of COVID pneumonia. He is switched to oral antibiotics. He is very weak and fatigued, eating maybe 50% of his food. He is up in the chair most of the day. Psych: Giving appropriate answers. Cardiovascular S1-S2. Lungs scattered rhonchi and wheeze. Hematology: Negative Homans. Two plus edema, stasis stockings on. ASSESSMENT: 1. Chronic obstructive pulmonary disease. 2. COVID pneumonia. 3. Diastolic heart failure. 4. Hypoxemic respiratory distress. 5. Generalized weakness. 6. Protein-calorie malnutrition rehab placement for generalized weakness and PT/OT to get his strength up. Prognosis guarded. MMODL / IJN: [id number] /
[2021-08-07] MEDS: ALBUTEROL HFA INHALER INHALATION PRN ×4 (07:30→21:44)
[2021-08-07 08:07] LABS: Glucose,Whole Blood 106 mg/dL (75-99)
[2021-08-07] MEDS: INSULIN ASPART (NovoLOG) 100 UNIT/ML VIAL SQ SCH ×4 (08:11→20:54)
[2021-08-07] MEDS: CHOLESTYRAMINE (WITH SUGAR) 4 GM PACKET PO SCH ×2 (08:13→15:35)
[2021-08-07] MEDS: ZINC SULFATE 220 MG CAP PO SCH (08:13)
[2021-08-07] MEDS: KETOTIFEN 0.025% OPHTH DROPS 5 ML BTL BOTH EYES SCH ×2 (08:13→20:45)
[2021-08-07] MEDS: TAMSULOSIN 0.4 MG CAP.ER.24H PO SCH (08:13)
[2021-08-07] MEDS: BENZONATATE 100 MG CAP PO SCH ×3 (08:14→21:42)
[2021-08-07] MEDS: SODIUM BICARBONATE TAB 650 MG TAB PO SCH ×3 (08:14→21:42)
[2021-08-07] MEDS: APIXABAN 2.5 MG TABLET PO SCH ×2 (08:14→20:39)
[2021-08-07] MEDS: FINASTERIDE 5 MG TAB PO SCH (08:14)
[2021-08-07] MEDS: FUROSEMIDE 10 MG/ML 10 ML VIAL IV SCH ×2 (08:14→20:45)
[2021-08-07] MEDS: ASCORBIC ACID 500 MG TAB PO SCH (08:14)
[2021-08-07] MEDS: MIDODRINE 5 MG TAB PO SCH ×3 (08:14→15:35)
[2021-08-07] MEDS: dexAMETHasone 2 MG TAB PO SCH (08:14)
[2021-08-07] MEDS: guaiFENesin 600 MG TABLET.ER PO SCH ×2 (08:14→20:40)
[2021-08-07] MEDS: allopurinoL 300 MG TAB PO SCH (08:14)
[2021-08-07] MEDS: PANTOPRAZOLE 40 MG TABLET PO SCH (08:14)
--- NOTE | 2021-08-07 09:42 | CDI ---
Documentation Clarification Form Date: 08/07/2021 09:24:00 AM From: Donna Berger RN, CCDS Admit Date: 07/23/2021 09:25:00 AM Patient Name: Blayne Tolentino Visit Number: [id number] Discharge Date: ATTENTION: The Clinical Documentation Specialists (CDI) and [facility] Coding Staff appreciate your assistance in clarifying documentation. Please respond to the clarification below the line at the bottom and electronically sign. The CDI & [facility] Coding staff will review the response and follow-up if needed. Please note: Queries are made part of the Legal Health Record. If you have any questions, please contact the author of this message via ITS. Dr. Dg Yadav Protein calorie malnutrition is documented in the progress notes on 08/06/21. Additional clarification regarding the severity of malnutrition is requested. History/Risk Factors: Covid-19 Pneumonia, CAD, COPD, Renal Disease, CA, GERD, Clinical Indicators: [id number] present to ED on 07/23 with generalized weakness, dyspnea. He was ruled in for Covid-19 pneumonia. 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
--- NOTE | 2021-08-07 10:42 | CDI ---
Documentation Clarification Form Date: 08/07/2021 09:45:15 AM From: Donna Berger RN, CCDS Admit Date: 07/23/2021 09:25:00 AM Patient Name: Blayne Tolentino Visit Number: [id number] Discharge Date: ATTENTION: The Clinical Documentation Specialists (CDI) and [facility] Coding Staff appreciate your assistance in clarifying documentation. Please respond to the clarification below the line at the bottom and electronically sign. The CDI & [facility] Coding staff will review the response and follow-up if needed. Please note: Queries are made part of the Legal Health Record. If you have any questions, please contact the author of this message via ITS. Dr. Dg Yadav Acute hypoxic respiratory distress is documented [insert date, location]. Additional clarification regarding the etiology of respiratory distress is requested. History/Risk Factors: Covid-19 Pneumonia, CAD, COPD, Renal Disease, CA, GERD, Clinical Indicators: [id number] present to ED on 07/23 with generalized weakness, dyspnea. He was ruled in for Covid-19 pneumonia. 07/22 Pulmonary consult: Oxygen saturation is 90 to 95 % on room air. Lungs bilateral: CTA. 07/22 @13:45 VS: 123/93 54 20 90 % RA 07/25 attending progress notes: He I saturation 96 % on 2/L. acute hypoxic respiratory distress 08/04 @13:51 VS: 124/66 50 19 89 % 3/L NC 08/06 @09:38 VS: 123/67 50 17 97.4 93 % 3/L NC 08/07 @05:49 VS: 120/57 52 19 97.4 93 # 3/L NC Treatment: Continue deep breathing, incentive spirometry Ventolin Inhalation QID and PRN Solu-Medrol 40 MG IV Q 8 HRS (07/25-07/29) Please clarify the etiology of respiratory distress, if known: [ ] Acute hypoxic Respiratory Failure [ ] Acute on Chronic hypoxic Respiratory Failure [ ] Chronic hypoxic Respiratory Failure [ ] Other, please specify [ ] Unable to determine (Template Last Revised: November 2020) MTDD
--- NOTE | 2021-08-07 11:37 | CDI ---
Documentation Clarification Form Date: 08/07/2021 10:42:56 AM From: Donna Berger RN, CCDS Admit Date: 07/23/2021 09:25:00 AM Patient Name: Blayne Tolentino Visit Number: [id number] Discharge Date: ATTENTION: The Clinical Documentation Specialists (CDI) and [facility] Coding Staff appreciate your assistance in clarifying documentation. Please respond to the clarification below the line at the bottom and electronically sign. The CDI & [facility] Coding staff will review the response and follow-up if needed. Please note: Queries are made part of the Legal Health Record. If you have any questions, please contact the author of this message via ITS. Dr. Dg Yadav Your patient has the documented diagnosis of Diastolic CHF in the H/P and subsequent progress notes. Additional information regarding Diastolic CHF is requested. History/Risk Factors: Covid-19 Pneumonia, CAD, AICD, COPD, Renal Disease, CA, GERD, Clinical Indicators: [id number] present to ED on 07/23 with generalized weakness, dyspnea. He was ruled in for Covid-19 pneumonia. 1123 Nephrology consult: Extremities 2+ edema. Fluid overload. 07/22 @13:45 VS: 123/93 54 20 90 % RA 07/23 BNP: 18587 07/24 Chest X Ray: Cardiomegaly with stable interstitial changes, residual pneumonitis or mild venous congestion 07/26 Chest x-ray: Interval worsening with development of patchy bilateral infiltrates. 07/30 progress note: worsening renal function and some third-spacing of fluids. Renal physician who recommend IV Lasix to be given 40 mg bid, and possible cardiorenal syndrome 1125 Chest x-ray: New increased small bilateral pleural effusions with prominent lower lung atelectasis and or consolidation. Consider possible etiologies such as CHF or aspiration Treatment: Lasix 40 MG IV Q 12 HRS (07/30-08/01) 08/01 Change to Lasix dip -08/02) Lasix 60 MG IV Q 12 HRS 08/02-08/07 Lipitor 20 MG PO HS Toprol XL 25 MG PO HS Monitor I/O In your professional opinion, can you please clarify the [acuity and type] of CHF if known? [ ] Acute Diastolic Heart Failure (preserved EF) [ ] Acute on Chronic Diastolic Heart Failure (preserved EF) [ ] Chronic Diastolic Heart Failure [ ] Acute Systolic & Diastolic Heart Failure [ ] Chronic Systolic & Diastolic Heart Failure [ ] Acute on Chronic Heart Failure Systolic & Diastolic Heart Failure [ ] Other, please specify [ ] Unable to determine (Template Last Revised: October 2020) MTDD
[2021-08-07 11:52] LABS: Glucose,Whole Blood 147 mg/dL (75-99)
--- NOTE | 2021-08-07 15:42 | PN ---
PROGRESS NOTE Patient is seen for followup for chronic kidney disease. He is currently being treated for COVID pneumonia. He is comfortable. Patient is sitting on a bedside chair this morning. Renal function has been stable with creatinine staying at about 2.5 to 2.4 mg/dL. Patient is maintained on IV Lasix. He has had good urine output. He has been voiding. On examination today, blood pressure 132/54, heart rate 50 per minute. Patient is afebrile. Examination of lower extremities shows edema 2+ bilaterally. Both legs are currently wrapped. Abdomen is soft, nontender. 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 Labs show hemoglobin 12.5 from 08/06/2021. Sodium 144, potassium 4.7, serum creatinine 2.4. ASSESSMENT: 1. Chronic kidney disease, NKF stage 4, secondary to nephrosclerosis. 2. Acute kidney injury, acute tubular necrosis, associated with COVID pneumonia; also component of cardiorenal syndrome, currently stable. UA is benign. Patient has an atrophic left kidney. He has had good urine output. 3. Volume overload, maintained on IV Lasix. 4. COVID pneumonia, stable, maintained on 3 L nasal cannula with oxygen saturations 91% to 95%. PLAN: Continue with the IV Lasix. MMODL / IJN: [id number] /
--- NOTE | 2021-08-07 16:27 | PN ---
PROGRESS NOTE DATE OF SERVICE: 08/07/2021 REASON FOR FOLLOWUP: Pneumonia. INTERVAL HISTORY: Patient is afebrile. The patient did have a congested cough but not bringing up any sputum. No vomiting, choking on food, diarrhea or any other changes reported by the nursing staff. The patient himself did not express any concerns. PHYSICAL EXAMINATION: Blood pressure 116/53 with a pulse of 50, temperature 97.5. He is 92% on 3 L nasal cannula. General description is an elderly male lying in bed in no distress. Respiratory system: Unlabored breathing. He has coarse breath sounds bilaterally. No wheeze. Heart S1, S2. Regular rate and rhythm. Abdomen: Soft, no tenderness. LABS: No new labs have been obtained. DIAGNOSTIC IMPRESSION AND PLAN: Patient with pneumonia. Patient sputum has been negative for resistant pathogen. Not running a fever. No white count. Continue current supportive treatment with steroids, dexamethasone, Lovenox, zinc and ascorbic acid along with respiratory support and monitor clinical course closely. MMODL / IJN: [id number] /
[2021-08-07 16:31] LABS: Glucose,Whole Blood 220 mg/dL (75-99)
[2021-08-07] MEDS: CHOLECALCIFEROL 25 MCG (1000 IU) TABLET PO SCH (20:39)
[2021-08-07] MEDS: ATORVASTATIN 20 MG TAB PO SCH (20:40)
[2021-08-07] MEDS: ACETAMINOPHEN TAB 325 MG TAB PO PRN (20:40)
[2021-08-07] MEDS: MONTELUKAST 10 MG TAB PO SCH (20:41)
[2021-08-07] MEDS: METOPROLOL SUCCINATE (ER) 25 MG TAB.ER.24H PO SCH (20:45)
[2021-08-07] MEDS: AMIODARONE 200 MG TAB PO SCH (20:45)
[2021-08-07 20:52] LABS: Glucose,Whole Blood 198 mg/dL (75-99)
[2021-08-08 07:02] LABS: Glucose,Whole Blood 114 mg/dL (75-99)
[2021-08-08] MEDS: INSULIN ASPART (NovoLOG) 100 UNIT/ML VIAL SQ SCH ×4 (07:15→20:48)
[2021-08-08] MEDS: CHOLESTYRAMINE (WITH SUGAR) 4 GM PACKET PO SCH ×2 (08:18→15:58)
[2021-08-08] MEDS: KETOTIFEN 0.025% OPHTH DROPS 5 ML BTL BOTH EYES SCH ×2 (08:19→20:56)
[2021-08-08] MEDS: FUROSEMIDE 10 MG/ML 10 ML VIAL IV SCH ×2 (08:19→20:48)
[2021-08-08] MEDS: ASCORBIC ACID 500 MG TAB PO SCH (08:20)
[2021-08-08] MEDS: APIXABAN 2.5 MG TABLET PO SCH ×2 (08:20→20:50)
[2021-08-08] MEDS: dexAMETHasone 2 MG TAB PO SCH (08:20)
[2021-08-08] MEDS: allopurinoL 300 MG TAB PO SCH (08:20)
[2021-08-08] MEDS: PANTOPRAZOLE 40 MG TABLET PO SCH (08:20)
[2021-08-08] MEDS: ZINC SULFATE 220 MG CAP PO SCH (08:20)
[2021-08-08] MEDS: TAMSULOSIN 0.4 MG CAP.ER.24H PO SCH (08:20)
[2021-08-08] MEDS: MIDODRINE 5 MG TAB PO SCH ×3 (08:20→15:57)
[2021-08-08] MEDS: BENZONATATE 100 MG CAP PO SCH ×3 (08:20→21:58)
[2021-08-08] MEDS: FINASTERIDE 5 MG TAB PO SCH (08:20)
[2021-08-08] MEDS: guaiFENesin 600 MG TABLET.ER PO SCH ×2 (08:20→20:50)
[2021-08-08] MEDS: SODIUM BICARBONATE TAB 650 MG TAB PO SCH ×3 (08:20→21:58)
[2021-08-08] MEDS: ALBUTEROL HFA INHALER INHALATION PRN ×3 (08:23→21:09)
--- NOTE | 2021-08-08 11:23 | XR ---
EXAMINATION TYPE: XR chest 1V DATE OF EXAM: 08/08/2021 COMPARISON: 08/03/2021 HISTORY: Cough TECHNIQUE: Single frontal view of the chest is obtained. FINDINGS: Calcified granuloma right upper lobe. Bilateral consolidation and small effusion. Postoper ative changes cardiac device. Arthropathy of the shoulders. Diffuse osteopenia. No pneumothorax. IMPRESSION: Bilateral infiltrate and pleural effusion.
[2021-08-08 11:49] LABS: Glucose,Whole Blood 180 mg/dL (75-99)
[2021-08-08] MEDS ORDERED: FUROSEMIDE 10 MG/ML 4 ML VIAL IV STA (15:54)
[2021-08-08] MEDS ORDERED: VANCOMYCIN IV PER PHARMACY 1 EACH MISC MISCELLANE PRN (15:54)
[2021-08-08 16:07] LABS: Glucose,Whole Blood 181 mg/dL (75-99)
[2021-08-08] MEDS ORDERED: VANCOMYCIN 1,500 MG in SODIUM CHLORIDE 0.9% 250 ML IVPB ONE (16:30)
[2021-08-08] MEDS: PIPERACILLIN-TAZOBACTAM 3.375 GM in SODIUM CHLORIDE 0.9% 100 ML IVPB SCH (17:01)
--- NOTE | 2021-08-08 17:30 | PN ---
PROGRESS NOTE DATE OF SERVICE: 08/08/2021 REASON FOR FOLLOWUP: Pneumonia. INTERVAL HISTORY: The patient is afebrile. The patient is breathing comfortably; however, he is requiring more supplemental oxygen. The patient denies having any chest pain. No worsening cough or sputum production. No abdominal pain or diarrhea. PHYSICAL EXAMINATION: Blood pressure 126/62 with a pulse of 53, temperature of 98. He is 90% on 9 L nasal cannula. General description is an elderly male lying in bed in no distress. Respiratory system: Unlabored breathing, decreased intensity of breath sounds. No wheeze. Heart S1, S2. Regular rate and rhythm. Abdomen soft, no tenderness. LABS: No new labs have been obtained today. DIAGNOSTIC IMPRESSION AND PLAN: Patient with acute respiratory failure with secondary pneumonia with initial diagnosis of COVID. Subsequently bacterial pneumonia. Chest x-ray continues to show bilateral infiltrate. He did have worsening of his respiratory status, requiring more oxygen. Will discuss further with Pulmonary. Continue with current treatment plan and monitor his clinical course closely. MMODL / IJN: [id number] /
[2021-08-08 20:23] LABS: Glucose,Whole Blood 158 mg/dL (75-99)
[2021-08-08] MEDS: ATORVASTATIN 20 MG TAB PO SCH (20:50)
[2021-08-08] MEDS: CHOLECALCIFEROL 25 MCG (1000 IU) TABLET PO SCH (20:50)
[2021-08-08] MEDS: AMIODARONE 200 MG TAB PO SCH (20:50)
[2021-08-08] MEDS: METOPROLOL SUCCINATE (ER) 25 MG TAB.ER.24H PO SCH (21:58)
[2021-08-08] MEDS: MONTELUKAST 10 MG TAB PO SCH (21:58)
--- NOTE | 2021-08-08 22:41 | PN ---
PROGRESS NOTE 89-year-old white male with Covid pneumonia. Remains on Eliquis, vitamin C, Tessalon Perles, Hexadrol, Luvox, Lasix, Mucinex, NovoLog, Zaditor, Claritin, Toprol-XL. Temp 96, pulse 51-60, blood pressure 120s over 50s, O2 90s to 95% on 9 L. We are going to start Lasix IV and broad-spectrum vancomycin and Zofran for secondary pneumonia. PROGNOSIS: Extremely guarded. Re-consult Pulmonary, Infectious Disease. Will try diuresis. Check echo. Prognosis guarded. MMODL / IJN: [id number] /
--- NOTE | 2021-08-08 22:59 | PN ---
PROGRESS NOTE ADDENDUM: Moderate protein-calorie malnutrition. Acute on chronic hypoxemic respiratory failure. Acute on chronic diastolic heart failure. MMODL / IJN: [id number] /
--- NOTE | 2021-08-09 00:52 | CT ---
EXAMINATION TYPE: CT chest wo con DATE OF EXAM: 08/08/2021 COMPARISON: 03/19/2020 HISTORY: effusion CT DLP: 431.4 mGycm Automated exposure control for dose reduction was used. Images obtained from the thoracic inlet to the diaphragm with no contrast. There are mild to moderate bilateral pleural effusions. Heart is enlarged. There is coronary artery c alcification. 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 There is no pericardial effusion. There is some infiltrate and atelectasis at both lung bases. This is more on the left side. There is thoracic mild kyphotic deformity. There is some degenerative spurring in the thoracic spine. There is no significant compression fracture. There are sternal wires. There is no evidence of a rib fracture. There is no adrenal mass. There is symmetric renal atrophy. No hydronephrosis. IMPRESSION: Aneurysm of the ascending aorta measures slightly increased 4 mm compared to old exam. There are bila teral pleural effusions and basilar pulmonary infiltrates and atelectasis increased compared to old e xam. Cardiomegaly unchanged. This could be chronic congestive heart failure.
[2021-08-09] MEDS: PIPERACILLIN-TAZOBACTAM 3.375 GM in SODIUM CHLORIDE 0.9% 100 ML IVPB SCH ×2 (05:11→17:57)
[2021-08-09 07:22] LABS: Glucose,Whole Blood 138 mg/dL (75-99)
[2021-08-09] MEDS: ZINC SULFATE 220 MG CAP PO SCH (08:25)
[2021-08-09] MEDS: PANTOPRAZOLE 40 MG TABLET PO SCH (08:25)
[2021-08-09] MEDS: INSULIN ASPART (NovoLOG) 100 UNIT/ML VIAL SQ SCH ×4 (08:25→21:30)
[2021-08-09] MEDS: guaiFENesin 600 MG TABLET.ER PO SCH ×2 (08:25→21:31)
[2021-08-09] MEDS: BENZONATATE 100 MG CAP PO SCH ×3 (08:25→21:30)
[2021-08-09] MEDS: allopurinoL 300 MG TAB PO SCH (08:25)
[2021-08-09] MEDS: FINASTERIDE 5 MG TAB PO SCH (08:25)
[2021-08-09] MEDS: APIXABAN 2.5 MG TABLET PO SCH ×2 (08:25→20:37)
[2021-08-09] MEDS: dexAMETHasone 2 MG TAB PO SCH (08:25)
[2021-08-09] MEDS: SODIUM BICARBONATE TAB 650 MG TAB PO SCH ×3 (08:25→21:30)
[2021-08-09] MEDS: MIDODRINE 5 MG TAB PO SCH ×3 (08:25→17:57)
[2021-08-09] MEDS: ASCORBIC ACID 500 MG TAB PO SCH (08:25)
[2021-08-09] MEDS: TAMSULOSIN 0.4 MG CAP.ER.24H PO SCH (08:25)
[2021-08-09] MEDS: CHOLESTYRAMINE (WITH SUGAR) 4 GM PACKET PO SCH ×2 (08:26→17:57)
[2021-08-09] MEDS: FUROSEMIDE 10 MG/ML 10 ML VIAL IV SCH ×2 (08:26→20:37)
[2021-08-09] MEDS: KETOTIFEN 0.025% OPHTH DROPS 5 ML BTL BOTH EYES SCH ×2 (08:26→20:39)
[2021-08-09] MEDS: ALBUTEROL HFA INHALER INHALATION PRN ×3 (08:54→16:45)
[2021-08-09 10:36] LABS: Basophils % (A) 0 %; Eosinophils % (A) 0 %; HCT 40.1 % (39.0-53.0); HGB 12.9 gm/dL (13.0-17.5); Lymphocytes # (A) 0.3 k/uL (1.0-4.8); Lymphocytes % (A) 3 %; MCH 30.7 pg (25.0-35.0); MCHC 32.1 g/dL (31.0-37.0); Mean Platelet Volume 9.3; Monocytes # (A) 0.2 k/uL (0-1.0); Monocytes % (A) 3 %; Neutrophils # (A) 7.9 k/uL (1.3-7.7); Neutrophils % (A) 94 %; RDW 15.5 % (11.5-15.5); WBC 8.4 k/uL (3.8-10.6)
--- NOTE | 2021-08-09 10:46 | P.PN ---
Subjective Progress Note Date: 08/08/21 Principal diagnosis: Acute on chronic hypoxic respiratory failure Pneumonia Blood stained sputum secondary pneumonia Generalized weakness Fall related to weakness COVID-19 infection GERD BPH Dyslipidemia Coronary artery disease with history of CABG and stent placement 08/08/2021, patient relatively more short of breath than baseline, oxygen requirement has increased though, creatinine, patient remains afebrile, oxygen requirement now is 9 L, patient is being planned for computed tomography scan of the chest, chest x-ray positive for edema as well as bilateral infiltrate 08/06/2021, patient seen and evaluated examined, respiratory status remained stable, oxygen saturation on 3 L nasal cannula is 91% for pressure is 119/56 patient remains afebrile, tolerating bronchodilator as well, remains on low-dose diuretic anticoagulant, patient is off of antibiotics, on diuretics, Hexadrol milligrams daily 08/05/2021, patient seen eval examined during the rounds labs reviewed medications reviewed care plan discussed, patient remains 2-3 L oxygen, currently on 3 L with the saturation 92%, Ms. afebrile, 08/04/2021, patient seen eval examined during the rounds labs reviewed medications reviewed sitting upright in chair breathing comfortably, remains on 3 L oxygen, intermittent cough is present mostly is dry now, meds reviewed, remains on bronchodilator, direct oral anticoagulant, oral Decadron, off of antibiotics now him a BUN/creatinine is 103/2.52, sugars 232, last covid testing was performed on the 16 of this month we'll repeat as symptoms significantly i mproved, and we'll help placement 08/01/2021, patient seen and evaluated examined during the rounds labs reviewed medications reviewed care plan discussed with the staff and patient at length, hemodynamic status stable however blood pressure slightly high, just received his medications from this morning, intermittent cough is present sputum is mucoid thick, patient currently on 2 L oxygen, independently has been going back and forth in room air oxygen, patient has been switched to oral Augmentin by primary service, remains on direct oral anticoagulant, patient lives by himself at home, extremely weak and requires support to stand currently in the process of being evaluated for placement ECF for short-term rehab 07/31/2021, patient seen eval examined during the rounds labs reviewed medica tions reviewed care plan discussed, respiratory status continued to be stable, patient now is on room air breathing comfortably, feet, does have cough sputum is light yellow 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, PERRL no hemoptysis has been seen, patient is off of IV steroids for now on Decadron for COVID-19 pneumonia inflammation, she remains on broad-spectrum antibiotics with Zosyn for bilateral basal pneumonia which clinically has been improving, but however still needs it, 07/30/2021, patient seen eval examined during the rounds labs reviewed medications reviewed care plan discussed, respiratory status remains stable intermittently patient has been on room air as well, cough is associated with sputum which is light in color and appearance no more hemoptysis seen, today's labs are reviewed white cell count is 7000 hemoglobin and hematocrit 12 and 39, platelets are 1 46,000, potassium is 5.3 showing a downward trend BUN/creatinine elevated but remains stable 82/2.51, patient back on Hexadrol off of IV steroids 07/29/2021, patient seen eval examined during the rounds labs reviewed medications reviewed, is still short of breath on activity and exertion cough is associated with sputum but slight and now no more hemoptysis is seen, BUN/creatinine is up to 83/2.47, CBC stable, oxygen saturation 97% on 2 L nasal cannula hemodynamic status stable, he remains on IV steroids breathing treatments antibiotics and steroids appeared to be responding well also has COVID-19 infection 07/28/2021, patient seen eval reexamined during the rounds labs reviewed medications reviewed still have ongoing cough on however 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, no more hemoptysis seen, Sputum culture no pathologic organism have been seen, patient remains afebrile, with oxygen saturation of 91-92% room air, uterus chest x-ray shows slight improvement in bilateral basal infiltrate, labs reviewed today white cell count within normal limit potassium is 5.7 BUN/creatinine is 77 and 2.4, 07/25/2021, patient seen eval examined during the rounds labs reviewed medications reviewed, patient has intermittent cough and he is producing clear to yellow sputum mixed with intermittent stye streaks of blood, more short of breath on 2 L oxygen, discussed with infectious disease services will start patient on IV steroids antibiotics send sputum for Gram stain and culture 07/24/2021, patient seen eval examined during the rounds overall no significant change in saturation 95% on room air, patient remains on oral steroids Decadron 6 mg daily, tolerating well today's x-ray reviewed some streak-like infiltrate at the bases cannot be excluded or perihilar infiltrate 07/23/2021, patient seen eval examined in follow-up, respiratory status not much change, chest x-ray reviewed possible interstitial pattern cannot be excluded, patient remains on room air as saturation 94% with stable hemodynamics, blood pressure is the 110/60, patient remains on bronchodilator continuation of home medications including liquids along with daily 6 mg of Decadron, patient has been restarted on her midodrine Patient is a 89-year-old male came into the hospital with generalized weakness and fall related to weakness, patient sees Dr. Yadav for primary care activities, cagle denies any night sweats fever or chills denies any chest pain or radiation of pain, no fever no bowel or bladder related problem, patient does have cough with sputum production his labs were significant for a hemoglobin of 12.6, platelet count of 10 7000, BUN/creatinine 56/2.27, glucose is 210, troponin 0.055 0.0 6 AM 0.047, oxygen saturation is 90% to 95% room air improved to, "test came back positive, chest x-ray and rib x-ray stable pacemaker and wires no infiltrate or heart failure identified no pneumothorax, currently patient is treated with bronchodilators continuation of home medications including amiodarone and requests primary History is significant for coronary artery disease, COPD, GERD, deafness, dyslipidemia, degenerative joint disease osteoarthritis history of pneumonia and sleep apnea Past surgical history significant for a bypass surgery, cardiac cath and stent placement and hernia repair orthopedic repair history of pacemaker insertion, stents no history of smoking through abuse and substance use Objective - Vital Signs Vital signs: Vital Signs Temp 97.6 F 08/08/21 09:03 Pulse 50 L 08/08/21 09:03 Resp 18 08/08/21 09:03 BP 124/45 08/08/21 09:03 Pulse Ox 90 L 08/08/21 09:22 Intake & Output 08/07/21 08/08/21 08/08/21 18:59 06:59 18:59 Intake Total 118 180 Output Total 500 200 Balance -382 180 -200 Intake: Oral 118 180 Output: Urine 500 200 Other: Voiding Method Urinal # Voids 750 - Exam - Exam - Constitutional General appearance: average body habitus, cooperative - EENT Eyes: PERRLA Ears: bilateral: normal - Neck Carotids: bilateral: upstroke normal Thyroid: bilateral: normal size - Respiratory Respiratory: bilateral: CTA - Cardiovascular Rhythm: regular Heart sounds: normal: S1, S2 - Gastrointestinal General gastrointestinal: soft - Neurologic Neurologic: CNII-XII intact - Musculoskeletal Musculoskeletal: gait normal, generalized weakness, strength equal bilaterally - Psychiatric Psychiatric: A&O x's 3, appropriate affect, intact judgment & insight - Labs CBC & Chem 7: 08/06/21 06:10 08/08/21 16:46 Labs: Abnormal Lab Results - Last 24 Hours (Table) 08/07/21 08/07/21 08/08/21 Range/Units 16:30 20:50 06:59 POC Glucose (mg/dL) 220 H 198 H 114 H (75-99) mg/dL 08/08/21 Range/Units 11:47 POC Glucose (mg/dL) 180 H (75-99) mg/dL Assessment and Plan Assessment: Acute hypoxic history failure with increased oxygen requirement Intermittent hemoptysis, improving and resolved Generalized weakness Fall related to weakness Acute on chronic kidney injury COVID-19 infection GERD BPH Dyslipidemia Coronary artery disease with history of CABG and stent placement Plan: Chest x-ray reviewed since several fluid overload bilateral pleural effusion however correlate related issues cannot be excluded would recommend to repeat forward testing Computed tomography scan of the chest is pending Continue bronchodilators Off of Oral Augmentin Continue Hexadrol Reviewed results of sputum for Gram stain and culture Continue deep breathing sense incentive spirometry PT OT evaluation ECF/rehab evaluation for placement Renal functions remain elevated but stable Long-term prognosis poor Time with Patient: Greater than 30
--- NOTE | 2021-08-09 10:50 | P.PN ---
Subjective Progress Note Date: 08/09/21 Principal diagnosis: Acute on chronic hypoxic respiratory failure Pneumonia Blood stained sputum secondary pneumonia Generalized weakness Fall related to weakness COVID-19 infection GERD BPH Dyslipidemia Coronary artery disease with history of CABG and stent placement 08/09/2021, examined during the rounds labs reviewed medications reviewed care plan discussed, respiratory status still marginal patient oxygen requirement is now 9 L now which have been significantly worse, patient underwent computed tomography scan of the chest finding reviewed, mild to moderate bilateral pleural effusion is seen, cardiomegaly, 4.6 cm ascending aorta, finding consistent with congestive heart failure however cold with associated disease process cannot be excluded, would recommend repeat the Covid testing before initiation and therapeutic trial Baricitinib 08/08/2021, patient relatively more short of breath than baseline, oxygen requirement has increased though, creatinine, patient remains afebrile, oxygen requirement now is 9 L, patient is being planned for computed tomography scan of the chest, chest x-ray positive for edema as well as bilateral infiltrate 08/06/2021, patient seen and evaluated examined, respiratory status remained stable, oxygen saturation on 3 L nasal cannula is 91% for pressure is 119/56 patient remains afebrile, tolerating bronchodilator as well, remains on low-dose diuretic anticoagulant, patient is off of antibiotics, on diuretics, Hexadrol milligrams daily 08/05/2021, patient seen eval examined during the rounds labs reviewed medications reviewed care plan discussed, patient remains 2-3 L oxygen, currently on 3 L with the saturation 92%, Ms. afebrile, 08/04/2021, patient seen eval examined during the rounds labs reviewed medications reviewed sitting upright in chair breathing comfortably, remains on 3 L oxygen, intermittent cough is present mostly is dry now, meds reviewed, remains on bronchodilator, direct oral anticoagulant, oral Decadron, off of antibiotics now him a BUN/creatinine is 103/2.52, sugars 232, last covid testing was performed on the of this month we'll repeat as symptoms significantly improved, and we'll help placement 08/01/2021, patient seen and evaluated examined during the rounds labs reviewed medications reviewed care plan discussed with the staff and patient at length, hemodynamic status stable however blood pressure slightly high, just received his medications from this morning, intermittent cough is present sputum is mucoid thick, patient currently on 2 L oxygen, independently has been going back and forth in room air oxygen, patient has been switched to oral Augmentin by primary service, remains on direct oral anticoagulant, patient lives by himself at home, extremely weak and requires support to stand currently in the process of being evaluated for placement ECF for short-term rehab 07/31/2021, patient seen eval examined during the rounds labs reviewed medications reviewed care plan discussed, respiratory status continued to be stable, patient now is on room air breathing comfortably, feet, does have cough sputum is light yellow 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, PERRL no hemoptysis has been seen, patient is off of IV steroids for now on Decadron for COVID-19 pneumonia inflammation, she remains on broad-spectrum antibiotics with Zosyn for bilateral basal pneumonia which clinically has been improving, but however still needs it, 07/30/2021, patient seen eval examined during the rounds labs reviewed medications reviewed care plan discussed, respiratory status remains stable intermittently patient has been on room air as well, cough is associated with sputum which is light in color and appearance no more hemoptysis seen, today's labs are reviewed white cell count is 7000 hemoglobin and hematocrit 12 and 39, platelets are 1 46,000, potassium is 5.3 showing a downward trend BUN/creatinine elevated but remains stable 82/2.51, patient back on Hexadrol off of IV steroids 07/29/2021, patient seen eval examined during the rounds labs reviewed medications reviewed, is still short of breath on activity and exertion cough is associated with sputum but slight and now no more hemoptysis is seen, BUN/creatinine is up to 83/2.47, CBC stable, oxygen saturation 97% on 2 L nasal cannula hemodynamic status stable, he remains on IV steroids breathing treatments antibiotics and steroids appeared to be responding well also has COVID-19 infection 07/28/2021, patient seen eval reexamined during the rounds labs reviewed medications reviewed still have ongoing cough on however sputum is home theater specialist 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, no more hemoptysis seen, Sputum culture no pathologic organism have been seen, patient remains afebrile, with oxygen saturation of 91-92% room air, uterus chest x-ray shows slight improvement in bilateral basal infiltrate, labs reviewed today white cell count within normal limit potassium is 5.7 BUN/creatinine is 77 and 2.4, 07/25/2021, patient seen eval examined during the rounds labs reviewed medications reviewed, patient has intermittent cough and he is producing clear to yellow sputum mixed with intermittent stye streaks of blood, more short of breath on 2 L oxygen, discussed with infectious disease services will start patient on IV steroids antibiotics send sputum for Gram stain and culture 07/24/2021, patient seen eval examined during the rounds overall no significant change in saturation 95% on room air, patient remains on oral steroids Decadron 6 mg daily, tolerating well today's x-ray reviewed some streak-like infiltrate at the bases cannot be excluded or perihilar infiltrate 07/23/2021, patient seen eval examined in follow-up, respiratory status not much change, chest x-ray reviewed possible interstitial pattern cannot be excluded, patient remains on room air as saturation 94% with stable hemodynamics, blood pressure is the 110/60, patient remains on bronchodilator continuation of home medications including liquids along with daily 6 mg of Decadron, patient has been restarted on her midodrine Patient is a 89-year-old male came into the hospital with generalized weakness and fall related to weakness, patient sees Dr. Yadav for primary care activities, cagle denies any night sweats fever or chills denies any chest pain or radiation of pain, no fever no bowel or bladder related problem, patient does have cough with sputum production his labs were significant for a hemoglobin of 12.6, platelet count of 10 7000, BUN/creatinine 56/2.27, glucose is 210, troponin 0.055 0.0 6 AM 0.047, oxygen saturation is 90% to 95% room air improved to, "test came back positive, chest x-ray and rib x-ray stable pacemaker and wires no infiltrate or heart failure identified no pneumothorax, currently patient is treated with bronchodilators continuation of home medications including amiodarone and requests primary History is significant for coronary artery disease, COPD, GERD, deafness, dyslipidemia, degenerative joint disease osteoarthritis history of pneumonia and sleep apnea Past surgical history significant for a bypass surgery, cardiac cath and stent placement and hernia repair orthopedic repair history of pacemaker insertion, stents no history of smoking through abuse and substance use Objective - Vital Signs Vital signs: Vital Signs Temp 97.8 F 08/09/21 10:00 Pulse 49 L 08/09/21 10:00 Resp 22 08/09/21 10:00 BP 108/59 08/09/21 10:00 Pulse Ox 93 L 08/09/21 10:00 Intake & Output 08/08/21 08/09/21 08/09/21 18:59 06:59 18:59 Output Total 200 575 Balance -200 -575 Output: Urine 200 575 Other: Voiding Method Urinal Urinal - Exam - Exam - Constitutional General appearance: average body habitus, cooperative - EENT Eyes: PERRLA Ears: bilateral: normal - Neck Carotids: bilateral: upstroke normal Thyroid: bilateral: normal size - Respiratory Respiratory: bilateral: CTA - Cardiovascular Rhythm: regular Heart sounds: normal: S1, S2 - Gastrointestinal General gastrointestinal: soft - Neurologic Neurologic: CNII-XII intact - Musculoskeletal Musculoskeletal: gait normal, generalized weakness, strength equal bilaterally - Psychiatric Psychiatric: A&O x's 3, appropriate affect, intact judgment & insight - Labs CBC & Chem 7: 08/06/21 06:10 08/08/21 16:46 Labs: Abnormal Lab Results - Last 24 Hours (Table) 08/08/21 08/08/21 08/08/21 Range/Units 11:47 16:04 16:46 Creatinine 2.33 H (0.66-1.25) mg/dL POC Glucose (mg/dL) 180 H 181 H (75-99) mg/dL 08/08/21 08/09/21 Range/Units 20:21 07:19 Creatinine (0.66-1.25) mg/dL POC Glucose (mg/dL) 158 H 138 H (75-99) mg/dL Assessment and Plan Assessment: Acute hypoxic history failure with increased oxygen requirement Intermittent hemoptysis, improving and resolved Generalized weakness Fall related to weakness Acute on chronic kidney injury COVID-19 infection GERD BPH Dyslipidemia Coronary artery disease with history of CABG and stent placement Plan: CT chest and Chest x-ray reviewed since several fluid overload bilateral pleural effusion however correlate related issues cannot be excluded would recommend to repeat forward testing Repeat Joseph Computed tomography scan of the chest reviewed Continue bronchodilators Off of Oral Augmentin Continue Hexadrol Reviewed results of sputum for Gram stain and culture Continue deep breathing sense incentive spirometry PT OT evaluation ECF/rehab evaluation for placement Renal functions remain elevated but stable Long-term prognosis poor Time with Patient: Greater than 30
[2021-08-09 11:01] LABS: ALT 38 U/L (4-49); AST 40 U/L (17-59); African American GFR (CKD) 27 (>60 ml/min/1.73 sqM); Albumin 2.8 g/dL (3.5-5.0); Albumin/Globulin Ratio 1.1; Alkaline Phosphatase 64 U/L (38-126); Anion Gap 10 mmol/L; Calcium 8.2 mg/dL (8.4-10.2); Carbon Dioxide 32 mmol/L (22-30); Chloride 100 mmol/L (98-107); Globulin 2.5 g/dL; Glucose 205 mg/dL (74-99); Non-African American GFR(CKD) 23 (>60 ml/min/1.73 sqM); Potassium 4.4 mmol/L (3.5-5.1); Sodium 142 mmol/L (137-145); Total Bilirubin 0.9 mg/dL (0.2-1.3); Total Protein 5.3 g/dL (6.3-8.2)
[2021-08-09 11:21] LABS: Blood Urea Nitrogen 112 mg/dL (9-20)
[2021-08-09 11:35] LABS: MCV 95.6 fL (80.0-100.0)
[2021-08-09 11:49] LABS: Glucose,Whole Blood 158 mg/dL (75-99)
[2021-08-09] MEDS ORDERED: VANCOMYCIN 1,500 MG in SODIUM CHLORIDE 0.9% 250 ML IVPB ONE (12:00)
--- NOTE | 2021-08-09 13:54 | PN ---
PROGRESS NOTE Patient is seen for followup for chronic kidney disease and acute kidney injury. He also has underlying cardiorenal syndrome and hypervolemia, being treated for CHF exacerbation. Patient has been maintained on IV Lasix. Volume status has improved. This morning patient is sitting up in a bedside chair. He is comfortable, trying to eat better. On examination today, blood pressure 108/59, heart rate 49 per minute. Patient is afebrile. Examination of lower extremities shows edema 1+ bilaterally. Today his legs are not wrapped. FUR DYER exam grossly intact. Lungs and heart are not examined. Labs show sodium 142, potassium 4.4, BUN 112, serum creatinine 2.4, hemoglobin 12.9 g/dL. ASSESSMENT: 1. Acute kidney injury, cardiorenal. Serum creatinine is slightly higher today from the 2.3 yesterday with significant increase in the BUN as well. I will decrease the Lasix to 40 mg daily IV for now. Patient is also maintained on vancomycin. I do not see a level. We will have the pharmacy draw a trough level to avoid vancomycin toxicity. 2. COVID pneumonia, maintained on steroids. 3. Congestive heart failure exacerbation, volume overload; currently improved. PLAN: Decrease Lasix. Monitor vancomycin levels. Repeat labs in a.m. The BUN is also disproportionately elevated secondary to steroids, but patient has been on the same dose of steroids for the past few days. MMODL / IJN: [id number] /
--- NOTE | 2021-08-09 14:00 | ECHOF ---
Referral Reason:chf MEASUREMENTS -------- HEIGHT: 167.6 cm WEIGHT: 81.6 kg BP: 127/74 RVIDd: 4.5 cm (< 3.3) IVSd: 1.7 cm (0.6 - 1.1) LVIDd: 5.4 cm (3.9 - 5.3) LVPWd: 1.5 cm (0.6 - 1.1) IVSs: 1.9 cm LVIDs: 4.1 cm LVPWs: 1.6 cm LA Diam: 4.5 cm (2.7 - 3.8) Ao Diam: 3.8 cm (2.0 - 3.7) AV Cusp: 2.2 cm (1.5 - 2.6) LA Diam: 5.4 cm (2.7 - 3.8) MV EXCURSION: 20.757 mm (> 18.000) MV EF SLOPE: 99 mm/s (70 - 150) EPSS: 2.2 cm MV E Dustin: 0.48 m/s MV DecT: 202 ms MV A Dustin: 0.83 m/s MV E/A Ratio: 0.58 AR PHT: 581 ms RAP: 5.00 mmHg RVSP: 37.02 mmHg FINDINGS -------- This was a technically adequate study. The left ventricular size is normal. There is moderate concentric left ventricular hypertrophy. T here is moderate global hypokinesis of LV . Overall left ventricular systolic function is mild-mode rately impaired with, an EF between 40 - 45 %. Septal wall motion is delayed and consistent with pr ior cardiac surgery. The right ventricle is moderately enlarged. The left atrium is mildly dilated. The right atrium was not well visualized. Electronic pacemaker lead seen in the right atrial cavity . Interatrial and interventricular septum intact. The aortic valve is trileaflet and appears structurally normal. There is mild aortic regurgitation. There is no evidence of aortic stenosis. There is trace mitral regurgitation. Mild tricuspid regurgitation present. There is borderline pulmonary artery hypertension. The righ t ventricular systolic pressure, as measured by Doppler, is 37.02mmHg. Trace/mild (physiologic) pulmonic regurgitation. The aortic root size is normal. IVC Not well visulized. There is no pericardial effusion. CONCLUSIONS -------- 1. The left ventricular size is normal. 2. There is moderate concentric left ventricular hypertrophy. 3. There is moderate global hypokinesis of LV . 4. Overall left ventricular systolic function is mild-moderately impaired with, an EF between 40 - 45 %. 5. The right ventricle is moderately enlarged. 6. The left atrium is mildly dilated. 7. There is mild aortic regurgitation. 8. There is trace mitral regurgitation. 9. Mild tricuspid regurgitation present. 10. There is borderline pulmonary artery hypertension. 11. The right ventricular systolic pressure, as measured by Doppler, is 37.02mmHg. 12. Trace/mild (physiologic) pulmonic regurgitation. GRADE SETTER: Dorys Morgan RDCS
[2021-08-09 15:19] LABS: Platelet Count 73 k/uL (150-450)
[2021-08-09 16:10] LABS: Glucose,Whole Blood 141 mg/dL (75-99)
[2021-08-09 20:11] LABS: Glucose,Whole Blood 220 mg/dL (75-99)
[2021-08-09] MEDS: CHOLECALCIFEROL 25 MCG (1000 IU) TABLET PO SCH (20:37)
[2021-08-09] MEDS: METOPROLOL SUCCINATE (ER) 25 MG TAB.ER.24H PO SCH (20:37)
[2021-08-09] MEDS: MONTELUKAST 10 MG TAB PO SCH (20:38)
[2021-08-09] MEDS: ATORVASTATIN 20 MG TAB PO SCH (20:38)
[2021-08-09] MEDS: AMIODARONE 200 MG TAB PO SCH (21:30)
--- NOTE | 2021-08-09 22:30 | PN ---
PROGRESS NOTE DATE OF SERVICE: 08/09/2021 REASON FOR FOLLOWUP: Pneumonia. INTERVAL HISTORY: The patient is afebrile. The patient is breathing more comfortably today. The patient denies having any chest pain. No worsening cough or sputum production. No abdominal pain or diarrhea. PHYSICAL EXAMINATION: Blood pressure 115/61, pulse of 51, temperature 98.6. He is 96% on 9 L high-flow oxygen. General description is an elderly male lying in bed in no distress. Respiratory system: Unlabored breathing. Coarse breath sounds bilaterally. No wheeze. Heart S1, S2. Regular rate and rhythm. Abdomen soft, no tenderness. LABS: Hemoglobin is 10.1, white count 8.4, creatinine is 2.41. DIAGNOSTIC IMPRESSION AND PLAN: Patient admitted to hospital with COVID-19 pneumonia in this patient with subsequent concern for a secondary bacteremia patient completed his antibiotic therapy. The vancomycin and Zosyn have been restarted by primary services the patient's borderline kidney function and high risk of nephrotoxicity with this antibiotic combination. May continue Zosyn. However, discontinue the vancomycin to decrease risk of nephrotoxicity, and continue with supportive care. MMODL / IJN: [id number] /
--- NOTE | 2021-08-09 23:00 | PN ---
PROGRESS NOTE 89-year-old white male with acute hypoxemic respiratory failure. Remains on IV Zosyn and vancomycin and IV Lasix. Temperature 98.6, pulse is 50s, respiratory 18-22, blood pressure 115 over 60s, 9 L he is at 96-99. Cardiovascular S1, S2. Lungs: Scattered rhonchi and wheeze. Psych: Fair mood and affect. Neurologic: Alert and oriented times three. Ophthalmologic: Pupils equal, round, reactive. ASSESSMENT: 1. Hospital-acquired pneumonia on top of Covid pneumonia. 2. Diastolic congestive heart failure. 3. Chronic obstructive pulmonary disease. No abdominal pain. Temp 98. Vitals as mentioned above. White count is 8.4, hemoglobin 7.1. Has borderline renal function. Going to keep him on Zosyn. They stopped his vancomycin. PROGNOSIS: Extremely guarded. The patient is requiring more oxygen at this time. MMODL / IJN: [id number] /
--- NOTE | 2021-08-09 23:35 | US ---
EXAMINATION TYPE: US chest DATE OF EXAM: 08/09/2021 COMPARISON: NONE CLINICAL HISTORY: pleural effusion. pleural effusion TECHNIQUE: Targeted ultrasound of the posterior lower bilateral hemithoraces EXAM MEASUREMENTS: Right Pleural Effusion pocket size: 7.1 cm Right skin surface to fluid distance: 2.4 cm Left Pleural Effusion pocket size: 7.6 cm Left skin surface to fluid distance: 3.2 cm Right side marked for possible thoracentesis outside the dept. Left side marked for possible thoracentesis outside the dept. Pulmonologists are able to review the images in the patient?s EMR. IMPRESSIONS: There is demonstration of moderate bilateral pleural effusions.
[2021-08-10] MEDS: PIPERACILLIN-TAZOBACTAM 3.375 GM in SODIUM CHLORIDE 0.9% 100 ML IVPB SCH ×2 (05:14→17:21)
[2021-08-10 07:32] LABS: Glucose,Whole Blood 132 mg/dL (75-99)
[2021-08-10 07:37] LABS: Anisocytosis Slight; Basophils % (A) 0 %; Eosinophils % (A) 0 %; HCT 37.7 % (39.0-53.0); HGB 12.3 gm/dL (13.0-17.5); Lymphocytes # (A) 0.3 k/uL (1.0-4.8); Lymphocytes % (A) 4 %; MCH 31.8 pg (25.0-35.0); MCHC 32.7 g/dL (31.0-37.0); MCV 97.2 fL (80.0-100.0); Macrocytosis Slight; Mean Platelet Volume 9.7; Monocytes # (A) 0.3 k/uL (0-1.0); Monocytes % (A) 3 %; Neutrophils # (A) 7.7 k/uL (1.3-7.7); Neutrophils % (A) 92 %; Platelet Count 60 k/uL (150-450); RBC 3.88 m/uL (4.30-5.90); RDW 16.2 % (11.5-15.5); WBC 8.4 k/uL (3.8-10.6)
[2021-08-10 07:50] LABS: African American GFR (CKD) 23 (>60 ml/min/1.73 sqM); Anion Gap 9 mmol/L; C Reactive Protein <0.5 mg/dL (<1.0); Calcium 8.1 mg/dL (8.4-10.2); Carbon Dioxide 32 mmol/L (22-30); Chloride 101 mmol/L (98-107); Glucose 121 mg/dL (74-99); Non-African American GFR(CKD) 20 (>60 ml/min/1.73 sqM); Potassium 4.4 mmol/L (3.5-5.1); Sodium 142 mmol/L (137-145)
[2021-08-10 07:56] LABS: Vancomycin,Random 22.3 ug/mL
[2021-08-10 08:00] LABS: Blood Urea Nitrogen 119 mg/dL (9-20)
[2021-08-10] MEDS: FINASTERIDE 5 MG TAB PO SCH (08:25)
[2021-08-10] MEDS: allopurinoL 300 MG TAB PO SCH (08:25)
[2021-08-10] MEDS: APIXABAN 2.5 MG TABLET PO SCH (08:25)
[2021-08-10] MEDS: dexAMETHasone 2 MG TAB PO SCH (08:25)
[2021-08-10] MEDS: MIDODRINE 5 MG TAB PO SCH ×3 (08:25→17:20)
[2021-08-10] MEDS: TAMSULOSIN 0.4 MG CAP.ER.24H PO SCH (08:26)
[2021-08-10] MEDS: guaiFENesin 600 MG TABLET.ER PO SCH ×2 (08:26→22:19)
[2021-08-10] MEDS: BENZONATATE 100 MG CAP PO SCH ×3 (08:26→22:19)
[2021-08-10] MEDS: ASCORBIC ACID 500 MG TAB PO SCH (08:26)
[2021-08-10] MEDS: ZINC SULFATE 220 MG CAP PO SCH (08:26)
[2021-08-10] MEDS: SODIUM BICARBONATE TAB 650 MG TAB PO SCH (08:26)
[2021-08-10] MEDS: PANTOPRAZOLE 40 MG TABLET PO SCH (08:26)
[2021-08-10] MEDS: INSULIN ASPART (NovoLOG) 100 UNIT/ML VIAL SQ SCH ×4 (08:27→22:22)
[2021-08-10] MEDS: FUROSEMIDE 10 MG/ML 10 ML VIAL IV SCH (08:28)
[2021-08-10] MEDS: CHOLESTYRAMINE (WITH SUGAR) 4 GM PACKET PO SCH ×2 (08:28→17:21)
[2021-08-10] MEDS: KETOTIFEN 0.025% OPHTH DROPS 5 ML BTL BOTH EYES SCH ×2 (08:29→22:21)
[2021-08-10] MEDS: ALBUTEROL HFA INHALER INHALATION PRN ×2 (09:28→16:34)
[2021-08-10] MEDS: FUROSEMIDE 10 MG/ML 4 ML VIAL IV SCH ×2 (10:17→22:18)
[2021-08-10 11:51] LABS: Glucose,Whole Blood 162 mg/dL (75-99)
[2021-08-10 13:29] LABS: C Reactive Protein <0.5 mg/dL (<1.0); LDH 842 U/L (313-618)
--- NOTE | 2021-08-10 13:37 | P.PN ---
Subjective Progress Note Date: 08/10/21 Principal diagnosis: Acute on chronic hypoxic respiratory failure Pneumonia Blood stained sputum secondary pneumonia Generalized weakness Fall related to weakness COVID-19 infection GERD BPH Dyslipidemia Coronary artery disease with history of CABG and stent placement 08/10/2021, patient seen eval reexamined during the rounds labs reviewed medications reviewed care plan discussed with the patient, as well as the the RN at length, patient continued to be acutely hypoxic FiO2 have been increased to 15 L high flow oxygen, renal functions remains on the poor side without any significant change, bilateral pleural effusion were seen on radiographic study patient underwent ultrasound of the chest which I reviewed it the hard copy there is a bilateral pleural effusion small to moderate bilaterally is present but however fluid is more accessible on the right side on the left side it's in the form of somewhat in close pocket, patient is on anticoagulation with liquids will hold it lunch to right-sided thoracentesis tomorrow Concern about hypoxia and desaturation acute worsening in the last 72 hours, discussed with the RN as well as the pharmacy, patient will benefit from Baricitinib discussed with pharmacy about prerequisite, labs ordered for d- dimer, C-reactive protein, LDH 08/09/2021, examined during the rounds labs reviewed medications reviewed care plan discussed, respiratory status still marginal patient oxygen requirement is now 9 L now which have been significantly worse, patient underwent computed tomography scan of the chest finding reviewed, mild to moderate bilateral pleural effusion is seen, cardiomegaly, 4.6 cm ascending aorta, finding cons istent with congestive heart failure however cold with associated disease process cannot be excluded, would recommend repeat the Covid testing before initiation and therapeutic trial Baricitinib 08/08/2021, patient relatively more short of breath than baseline, oxygen requirement has increased though, creatinine, patient remains afebrile, oxygen requirement now is 9 L, patient is being planned for computed tomography scan of the chest, chest x-ray positive for edema as well as bilateral infiltrate 08/06/2021, patient seen and evaluated examined, respiratory status remained stable, oxygen saturation on 3 L nasal cannula is 91% for pressure is 119/56 patient remains afebrile, tolerating bronchodilator as well, remains on low-dose diuretic anticoagulant, patient is off of antibiotics, on diuretics, Hexadrol milligrams daily 08/05/2021, patient seen eval examined during the rounds labs reviewed medications reviewed care plan discussed, patient remains 2-3 L oxygen, currently on 3 L with the saturation 92%, afebrile, 08/04/2021, patient seen eval examined during the rounds labs reviewed medications reviewed sitting upright in chair breathing comfortably, remains on 3 L oxygen, intermittent cough is present mostly is dry now, meds reviewed, remains on bronchodilator, direct oral anticoagulant, oral Decadron, off of antibiotics now him a BUN/creatinine is 103/2.52, sugars 232, last covid testing was performed on the of this month we'll repeat as symptoms significantly i mproved, and we'll help placement 08/01/2021, patient seen and evaluated examined during the rounds labs reviewed medications reviewed care plan discussed with the staff and patient at length, hemodynamic status stable however blood pressure slightly high, just received his medications from this morning, intermittent cough is present sputum is mucoid thick, patient currently on 2 L oxygen, independently has been going back and forth in room air oxygen, patient has been switched to oral Augmentin by primary service, remains on direct oral anticoagulant, patient lives by himself at home, extremely weak and requires support to stand currently in the process of being evaluated for placement ECF for short-term rehab 07/31/2021, patient seen eval examined during the rounds labs reviewed medica tions reviewed care plan discussed, respiratory status continued to be stable, patient now is on room air breathing comfortably, feet, does have cough sputum is light yellow 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, PERRL no hemoptysis has been seen, patient is off of IV steroids for now on Decadron for COVID-19 pneumonia inflammation, she remains on broad-spectrum antibiotics with Zosyn for bilateral basal pneumonia which clinically has been improving, but however still needs it, 07/30/2021, patient seen eval examined during the rounds labs reviewed medications reviewed care plan discussed, respiratory status remains stable intermittently patient has been on room air as well, cough is associated with sputum which is light in color and appearance no more hemoptysis seen, today's labs are reviewed white cell count is 7000 hemoglobin and hematocrit 12 and 39, platelets are 1 46,000, potassium is 5.3 showing a downward trend BUN/creatinine elevated but remains stable 82/2.51, patient back on Hexadrol off of IV steroids 07/29/2021, patient seen eval examined during the rounds labs reviewed medications reviewed, is still short of breath on activity and exertion cough is associated with sputum but slight and now no more hemoptysis is seen, BUN/creatinine is up to 83/2.47, CBC stable, oxygen saturation 97% on 2 L nasal cannula hemodynamic status stable, he remains on IV steroids breathing treatments antibiotics and steroids appeared to be responding well also has COVID-19 infection 07/28/2021, patient seen eval reexamined during the rounds labs reviewed medications reviewed still have ongoing cough on however sputum is spreader operator 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, no more hemoptysis seen, Sputum culture no pathologic organism have been seen, patient remains afebrile, with oxygen saturation of 91-92% room air, uterus chest x-ray shows slight improvement in bilateral basal infiltrate, labs reviewed today white cell count within normal limit potassium is 5.7 BUN/creatinine is 77 and 2.4, 07/25/2021, patient seen eval examined during the rounds labs reviewed medications reviewed, patient has intermittent cough and he is producing clear to yellow sputum mixed with intermittent stye streaks of blood, more short of breath on 2 L oxygen, discussed with infectious disease services will start patient on IV steroids antibiotics send sputum for Gram stain and culture 07/24/2021, patient seen eval examined during the rounds overall no significant change in saturation 95% on room air, patient remains on oral steroids Decadron 6 mg daily, tolerating well today's x-ray reviewed some streak-like infiltrate at the bases cannot be excluded or perihilar infiltrate 07/23/2021, patient seen eval examined in follow-up, respiratory status not much change, chest x-ray reviewed possible interstitial pattern cannot be excluded, patient remains on room air as saturation 94% with stable hemodynamics, blood pressure is the 110/60, patient remains on bronchodilator continuation of home medications including liquids along with daily 6 mg of Decadron, patient has been restarted on her midodrine Patient is a 89-year-old male came into the hospital with generalized weakness and fall related to weakness, patient sees Dr. Yadav for primary care activities, cagle denies any night sweats fever or chills denies any chest pain or radiation of pain, no fever no bowel or bladder related problem, patient does have cough with sputum production his labs were significant for a hemoglobin of 12.6, platelet count of 10 7000, BUN/creatinine 56/2.27, glucose is 210, troponin 0.055 0.0 6 AM 0.047, oxygen saturation is 90% to 95% room air improved to, "test came back positive, chest x-ray and rib x-ray stable pacemaker and wires no infiltrate or heart failure identified no pneumothorax, currently patient is treated with bronchodilators continuation of home medications including amiodarone and requests primary History is significant for coronary artery disease, COPD, GERD, deafness, dyslipidemia, degenerative joint disease osteoarthritis history of pneumonia and sleep apnea Past surgical history significant for a bypass surgery, cardiac cath and stent placement and hernia repair orthopedic repair history of pacemaker insertion, stents no history of smoking through abuse and substance use Objective - Vital Signs Vital signs: Vital Signs Temp 98.2 F 08/10/21 10:00 Pulse 50 L 08/10/21 10:00 Resp 18 08/10/21 10:00 BP 97/52 08/10/21 10:00 Pulse Ox 90 L 08/10/21 10:00 Intake & Output 08/09/21 08/10/21 08/10/21 18:59 06:59 18:59 Output Total 601 Balance -601 Output: Urine 600 Stool 1 Other: Voiding Method Urinal Urinal Urinal # Voids 3 1 # Bowel Movements 1 1 - Exam - Exam - Constitutional General appearance: average body habitus, cooperative - EENT Eyes: PERRLA Ears: bilateral: normal - Neck Carotids: bilateral: upstroke normal Thyroid: bilateral: normal size - Respiratory Respiratory: bilateral: CTA - Cardiovascular Rhythm: regular Heart sounds: normal: S1, S2 - Gastrointestinal General gastrointestinal: soft - Neurologic Neurologic: CNII-XII intact - Musculoskeletal Musculoskeletal: gait normal, generalized weakness, strength equal bilaterally - Psychiatric Psychiatric: A&O x's 3, appropriate affect, intact judgment & insight - Labs CBC & Chem 7: 08/10/21 07:06 08/10/21 07:06 Labs: Abnormal Lab Results - Last 24 Hours (Table) 08/09/21 08/09/21 08/09/21 Range/Units 09:49 16:09 20:10 RBC (4.30-5.90) m/uL Hgb (13.0-17.5) gm/dL Hct (39.0-53.0) % RDW (11.5-15.5) % Plt Count 73 L (150-450) k/uL Neutrophils # 7.9 H (1.3-7.7) k/uL Lymphocytes # 0.3 L (1.0-4.8) k/uL Carbon Dioxide (22-30) mmol/L BUN (9-20) mg/dL Creatinine (0.66-1.25) mg/dL Glucose (74-99) mg/dL POC Glucose (mg/dL) 141 H 220 H (75-99) mg/dL Calcium (8.4-10.2) mg/dL Procalcitonin (0.02-0.09) ng/mL 08/10/21 08/10/21 08/10/21 Range/Units 07:06 07:06 07:06 RBC 3.88 L (4.30-5.90) m/uL Hgb 12.3 L (13.0-17.5) gm/dL Hct 37.7 L (39.0-53.0) % RDW 16.2 H (11.5-15.5) % Plt Count 60 L (150-450) k/uL Neutrophils # (1.3-7.7) k/uL Lymphocytes # 0.3 L (1.0-4.8) k/uL Carbon Dioxide 32 H (22-30) mmol/L BUN 119 H* (9-20) mg/dL Creatinine 2.69 H (0.66-1.25) mg/dL Glucose 121 H (74-99) mg/dL POC Glucose (mg/dL) (75-99) mg/dL Calcium 8.1 L (8.4-10.2) mg/dL Procalcitonin 0.15 H (0.02-0.09) ng/mL 08/10/21 08/10/21 Range/Units 07:30 11:50 RBC (4.30-5.90) m/uL Hgb (13.0-17.5) gm/dL Hct (39.0-53.0) % RDW (11.5-15.5) % Plt Count (150-450) k/uL Neutrophils # (1.3-7.7) k/uL Lymphocytes # (1.0-4.8) k/uL Carbon Dioxide (22-30) mmol/L BUN (9-20) mg/dL Creatinine (0.66-1.25) mg/dL Glucose (74-99) mg/dL POC Glucose (mg/dL) 132 H 162 H (75-99) mg/dL Calcium (8.4-10.2) mg/dL Procalcitonin (0.02-0.09) ng/mL Assessment and Plan Assessment: Acute hypoxic history failure with increased oxygen requirement likely due to worsening inflammation treated response due to COVID-19 pneumonia Bilateral pleural effusion more so on the right side compared to lites right Acute on chronic kidney disease Generalized weakness Fall related to weakness Acute on chronic kidney injury COVID-19 infection Intermittent hemoptysis, improving and resolved GERD BPH Dyslipidemia Coronary artery disease with history of CABG and stent placement Plan: Evaluated for Baricitinib, labs ordered Right-sided thoracentesis tomorrow CT chest and Chest x-ray reviewed since several fluid overload bilateral pleural effusion however correlate related issues cannot be excluded would recommend to repeat forward testing Repeat Joseph Computed tomography scan of the chest reviewed Continue bronchodilators Reviewed results of sputum for Gram stain and culture Continue deep breathing sense incentive spirometry PT OT evaluation ECF/rehab evaluation for placement Renal functions remain elevated but stable Long-term prognosis poor Time with Patient: Greater than 30
[2021-08-10] MEDS: BARICITINIB 1 MG TABLET PO SCH (15:01)
--- NOTE | 2021-08-10 16:42 | PN ---
PROGRESS NOTE Patient is seen for followup for chronic kidney disease and acute kidney injury. Patient is currently being diuresed for volume overload and congestive heart failure exacerbation as well. He has significant edema in his lower extremities which has actually improved. This morning his BUN is further elevated to 119, creatinine is also increased from about 2.4 or 2.5 to 2.7 today. On examination today, patient is comfortable. Blood pressure 97/52, heart rate 50 per minute. Patient is afebrile. Examination of lower extremities shows edema 2+ bilaterally. TEST DRILLER exam grossly intact. Abdomen is soft, nontender. Lungs and heart are not examined. Labs show sodium 142, potassium 4.4, CO2 is 32, BUN 119, serum creatinine 2.69, hemoglobin 12.3 g/dL. ASSESSMENT: 1. Acute kidney injury on top of chronic kidney disease, acute tubular necrosis and cardiorenal syndrome. Serum creatinine slightly higher today. Will decrease the Lasix. Blood pressure was also noted to be low today. Patient is not on any significant antihypertensive medications currently. He is maintained on midodrine, which we can continue. 2. Metabolic acidosis, maintained on oral sodium bicarb. This will be discontinued, at CO2 is high. 3. COVID pneumonia, maintained on steroids. Requiring 9 to 15 L high-flow nasal cannula. 4. Volume overload, maintained on IV Lasix. Volume status is better. Decrease Lasix to 40 mg q.12 hours. 5. Chronic kidney disease, stage 3B. Baseline creatinine 1.5 to 2 mg/dL secondary to nephrosclerosis. 6. Cardiomyopathy, ejection fraction 40% to 45%, with moderate global hypokinesis. PLAN: Decrease Lasix to 40 mg q.12 hours. Encourage increased oral intake. Repeat labs in a.m. MMODL / IJN: [id number] /
[2021-08-10 16:44] LABS: Glucose,Whole Blood 236 mg/dL (75-99)
[2021-08-10] MEDS: methylPREDNISolone SOD SUCCI 40 MG/ML 1 ML VIAL IV SCH (17:21)
--- NOTE | 2021-08-10 19:24 | PN ---
PROGRESS NOTE 89-year-old white male, acute on chronic hypoxemic respiratory failure secondary to pneumonia on top of Covid pneumonia, bacterial pneumonia, generalized weakness, GERD, BPH, COPD. His oxygen level is needed up to 9 L high-flow. CT scan and ultrasound show bilateral pleural effusions up to 7 cm, possibly get a thoracentesis done on this patient due to elevated fluid in the lungs. Possibly trial of baricitinib and repeat Covid testing per Dr. Faustin. PHYSICAL EXAMINATION: Temperature 98.2, pulse 50, respiration 18 to 20, blood pressure is low at 90s over 50s. O2 90%. Cardiovascular S1-S2. Lungs rales at the bases. Hematology negative Homans, 2+ edema, 3+ edema. Abdomen is soft. He has given appropriate answers. He is groggy, sleepy. ASSESSMENT: 1. Acute on chronic respiratory failure. 2. Worsening inflammation. 3. Possibly Covid 19 pneumonia with possible congestive heart failure with bilateral pleural effusions. 4. Acute on chronic kidney disease. Renal physician consult, see what they recommend. 5. Covid 19 infection, continue treatments. 6. Gastroesophageal reflux disease. 7. Benign prostatic hypertrophy. 8. Dyslipidemia. Possible thoracentesis will be needed to evaluate for Baricitinib, and right-sided thoracentesis followed by left-sided the next day. Prognosis is guarded. Continue current treatment. MMODL / IJN: [id number] /
[2021-08-10 19:59] LABS: Glucose,Whole Blood 273 mg/dL (75-99)
--- NOTE | 2021-08-10 21:53 | PN ---
PROGRESS NOTE DATE OF SERVICE: 08/10/2021 REASON FOR FOLLOWUP: Pneumonia. INTERVAL HISTORY: The patient is afebrile. The patient mentioned breathing comfortably. The patient denies having any chest pain or worsening cough or sputum production. No abdominal pain or diarrhea. PHYSICAL EXAMINATION: Blood pressure 109/59 with a pulse of 50, temperature 98.1. He is 98% on high- flow oxygen. General description is an elderly male up in the bed in no distress. Respiratory system: Unlabored breathing. Coarse breath sounds bilaterally. No wheeze. Heart S1, S2. Regular rate and rhythm. Abdomen soft, no tenderness. LABS: Hemoglobin is , white count 8.4. CRP was normal. BUN of , creatinine is 2.69. DIAGNOSTIC IMPRESSION AND PLAN: Patient with acute respiratory failure which is multifactorial in this patient with a possible component of fluid overload from underlying renal failure with a normal CRP. Underlying pneumonia not likely, but not entirely excluded. Patient is in overall critical condition and is covered with Zosyn empirically; to continue and continue with supportive care. MMODL / IJN: [id number] /
[2021-08-10] MEDS: ATORVASTATIN 20 MG TAB PO SCH (22:20)
[2021-08-10] MEDS: AMIODARONE 200 MG TAB PO SCH (22:20)
[2021-08-10] MEDS: METOPROLOL SUCCINATE (ER) 25 MG TAB.ER.24H PO SCH (22:32)
[2021-08-10] MEDS: MONTELUKAST 10 MG TAB PO SCH (22:32)
[2021-08-11] MEDS: methylPREDNISolone SOD SUCCI 40 MG/ML 1 ML VIAL IV SCH ×4 (00:06→16:50)
[2021-08-11] MEDS: PIPERACILLIN-TAZOBACTAM 3.375 GM in SODIUM CHLORIDE 0.9% 100 ML IVPB SCH ×2 (05:15→16:42)
[2021-08-11 07:24] LABS: Glucose,Whole Blood 156 mg/dL (75-99)
[2021-08-11] MEDS: ALBUTEROL HFA INHALER INHALATION PRN ×2 (07:42→12:04)
[2021-08-11] MEDS: INSULIN ASPART (NovoLOG) 100 UNIT/ML VIAL SQ SCH ×4 (08:46→21:22)
[2021-08-11] MEDS: BENZONATATE 100 MG CAP PO SCH ×3 (08:47→21:21)
[2021-08-11] MEDS: guaiFENesin 600 MG TABLET.ER PO SCH ×2 (08:47→21:21)
[2021-08-11] MEDS: TAMSULOSIN 0.4 MG CAP.ER.24H PO SCH (08:47)
[2021-08-11] MEDS: FUROSEMIDE 10 MG/ML 4 ML VIAL IV SCH ×2 (08:47→21:22)
[2021-08-11] MEDS: FINASTERIDE 5 MG TAB PO SCH (08:47)
[2021-08-11] MEDS: ASCORBIC ACID 500 MG TAB PO SCH (08:47)
[2021-08-11] MEDS: ZINC SULFATE 220 MG CAP PO SCH (08:47)
[2021-08-11] MEDS: MIDODRINE 5 MG TAB PO SCH ×3 (08:47→16:51)
[2021-08-11] MEDS: PANTOPRAZOLE 40 MG TABLET PO SCH (08:47)
[2021-08-11] MEDS: allopurinoL 300 MG TAB PO SCH (08:47)
[2021-08-11] MEDS: BARICITINIB 1 MG TABLET PO SCH (08:48)
[2021-08-11] MEDS: CHOLESTYRAMINE (WITH SUGAR) 4 GM PACKET PO SCH ×2 (08:49→15:49)
[2021-08-11] MEDS: KETOTIFEN 0.025% OPHTH DROPS 5 ML BTL BOTH EYES SCH ×2 (09:06→21:22)
[2021-08-11 11:51] LABS: Glucose,Whole Blood 248 mg/dL (75-99)
--- NOTE | 2021-08-11 12:22 | P.PN ---
Subjective Patient is seen in follow-up for acute kidney injury on chronic kidney disease. Creatinine 2.69 yesterday. Hemodynamically stable. On 13 L high flow cannula. Has been voiding. Nonoliguric. On IV Lasix. Oral intake.. No vomiting or diarrhea. Vital signs are stable. General: The patient appeared well nourished and normally developed. HEENT: Head exam is unremarkable. LUNGS: Breath sounds decreased. HEART: Rate and Rhythm are regular. ABDOMEN: Soft, no distention. EXTREMITITES: 1+ edema. Objective - Vital Signs Vital signs: Vital Signs Temp 98.2 F 08/11/21 10:00 Pulse 50 L 08/11/21 10:00 Resp 17 08/11/21 10:00 BP 104/49 08/11/21 10:00 Pulse Ox 99 08/11/21 10:00 Intake & Output 08/10/21 08/11/21 08/11/21 18:59 06:59 18:59 Intake Total 180 Output Total 1 Balance 179 Intake: Oral 180 Output: Stool 1 Other: Voiding Method Urinal Urinal Urinal # Voids 5 - Labs CBC & Chem 7: 08/10/21 07:06 08/10/21 07:06 Labs: Abnormal Lab Results - Last 24 Hours (Table) 08/10/21 08/10/21 08/10/21 Range/Units 07:06 12:56 12:56 D-Dimer 0.98 H (<0.60) mg/L FEU POC Glucose (mg/dL) (75-99) mg/dL Ferritin 635.0 H (22.0-322.0) ng/mL Lactate Dehydrogenase 842 H (313-618) U/L Procalcitonin 0.15 H (0.02-0.09) ng/mL 08/10/21 08/10/21 08/11/21 Range/Units 16:43 19:57 07:23 D-Dimer (<0.60) mg/L FEU POC Glucose (mg/dL) 236 H 273 H 156 H (75-99) mg/dL Ferritin (22.0-322.0) ng/mL Lactate Dehydrogenase (313-618) U/L Procalcitonin (0.02-0.09) ng/mL 08/11/21 Range/Units 11:49 D-Dimer (<0.60) mg/L FEU POC Glucose (mg/dL) 248 H (75-99) mg/dL Ferritin (22.0-322.0) ng/mL Lactate Dehydrogenase (313-618) U/L Procalcitonin (0.02-0.09) ng/mL Assessment and Plan Plan: Assessment: 1. Acute kidney injury secondary to ATN secondary to COVID-19 infection and cardiorenal syndrome. Renal function stable. Creatinine 2.69 yesterday. UA benign. Right kidney atrophic. Left kidney not seen. No evidence of hydronephrosis. Elevated BUN secondary to acute kidney injury as well as steroids. No evidence of GI bleed. 2. Chronic kidney disease stage IIIB with baseline creatinine the range of 1.5- 2 secondary to nephrosclerosis. 3. COVID-19 pneumonia as well as superimposed bacterial pneumonia. 4. Metabolic acidosis secondary to acute kidney injury. Resolved. 5. Mild hyperkalemia secondary to acute kidney injury and metabolic acidosis. resolved. 6. Fluid overload. Improved with diuresis. Plan: Maintain IV Lasix. Avoid nephrotoxins. Continue to monitor renal function and urine output. Hold midodrine for systolic blood pressure greater than 110. Repeat labs in the morning.
[2021-08-11 16:39] LABS: Glucose,Whole Blood 178 mg/dL (75-99)
[2021-08-11] MEDS: APIXABAN 2.5 MG TABLET PO SCH (17:07)
--- NOTE | 2021-08-11 17:14 | P.PN ---
Subjective Progress Note Date: 08/11/21 Principal diagnosis: Acute on chronic hypoxic respiratory failure Pneumonia Blood stained sputum secondary pneumonia Generalized weakness Fall related to weakness COVID-19 infection GERD BPH Dyslipidemia Coronary artery disease with history of CABG and stent placement 08/11/2021, patient seen eval examined during the rounds labs reviewed medications reviewed care plan discussed, respiratory status slightly better FiO2 decreased down from 15 needed to 13 L breathing more comfortably, have early looked on ultrasound of the chest bilateral, small to moderate pleural eff usion bilaterally is present, we'll continue to hold on the direct anticoagulant, we will hold thoracentesis repeat ultrasound of the chest in the morning, current therapy for pneumonia as well as COVID-19 infection appears to be working O follow closely 08/10/2021, patient seen eval reexamined during the rounds labs reviewed medications reviewed care plan discussed with the patient, as well as the the RN at length, patient continued to be acutely hypoxic FiO2 have been increased to 15 L high flow oxygen, renal functions remains on the poor side without any significant change, bilateral pleural effusion were seen on radiographic study patient underwent ultrasound of the chest which I reviewed it the hard copy there is a bilateral pleural effusion small to moderate bilaterally is present b ut however fluid is more accessible on the right side on the left side it's in the form of somewhat in close pocket, patient is on anticoagulation with liquids will hold it lunch to right-sided thoracentesis tomorrow Concern about hypoxia and desaturation acute worsening in the last 72 hours, discussed with the RN as well as the pharmacy, patient will benefit from Baricitinib discussed with pharmacy about prerequisite, labs ordered for d- dimer, C-reactive protein, LDH 08/09/2021, examined during the rounds labs reviewed medications reviewed care plan discussed, respiratory status still marginal patient oxygen requirement is now 9 L now which have been significantly worse, patient underwent computed tomography scan of the chest finding reviewed, mild to moderate bilateral pleural effusion is seen, cardiomegaly, 4.6 cm ascending aorta, finding consistent with congestive heart failure however cold with associated disease process cannot be excluded, would recommend repeat the Covid testing before initiation and therapeutic trial Baricitinib 08/08/2021, patient relatively more short of breath than baseline, oxygen requirement has increased though, creatinine, patient remains afebrile, oxygen requirement now is 9 L, patient is being planned for computed tomography scan of the chest, chest x-ray positive for edema as well as bilateral infiltrate 08/06/2021, patient seen and evaluated examined, respiratory status remained stable, oxygen saturation on 3 L nasal cannula is 91% for pressure is 119/56 patient remains afebrile, tolerating bronchodilator as well, remains on low-dose diuretic anticoagulant, patient is off of antibiotics, on diuretics, Hexadrol milligrams daily 08/05/2021, patient seen eval examined during the rounds labs reviewed medications reviewed care plan discussed, patient remains 2-3 L oxygen, currently on 3 L with the saturation 92%, Ms. afebrile, 08/04/2021, patient seen eval examined during the rounds labs reviewed medications reviewed sitting upright in chair breathing comfortably, remains on 3 L oxygen, intermittent cough is present mostly is dry now, meds reviewed, remains on bronchodilator, direct oral anticoagulant, oral Decadron, off of a ntibiotics now him a BUN/creatinine is 103/2.52, sugars 232, last covid testing was performed on the of this month we'll repeat as symptoms significantly improved, and we'll help placement 08/01/2021, patient seen and evaluated examined during the rounds labs reviewed medications reviewed care plan discussed with the staff and patient at length, hemodynamic status stable however blood pressure slightly high, just received his medications from this morning, intermittent cough is present sputum is mucoid thick, patient currently on 2 L oxygen, independently has been going back and forth in room air oxygen, patient has been switched to oral Augmentin by primary service, remains on direct oral anticoagulant, patient lives by himself at home, extremely weak and requires support to stand currently in the process of being evaluated for placement ECF for short-term rehab 07/31/2021, patient seen eval examined during the rounds labs reviewed medications reviewed care plan discussed, respiratory status continued to be stable, patient now is on room air breathing comfortably, feet, does have cough sputum is light yellow 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, PERRL no hemoptysis has been seen, patient is off of IV steroids for now on Decadron for COVID-19 pneumonia inflammation, she remains on broad-spectrum antibiotics with Zosyn for bilateral basal pneumonia which clinically has been improving, but however still needs it, 07/30/2021, patient seen eval examined during the rounds labs reviewed medicatio ns reviewed care plan discussed, respiratory status remains stable intermittently patient has been on room air as well, cough is associated with sputum which is light in color and appearance no more hemoptysis seen, today's labs are reviewed white cell count is 7000 hemoglobin and hematocrit 12 and 39, platelets are 1 46,000, potassium is 5.3 showing a downward trend BUN/creatinine elevated but remains stable 82/2.51, patient back on Hexadrol off of IV steroids 07/29/2021, patient seen eval examined during the rounds labs reviewed medications reviewed, is still short of breath on activity and exertion cough is associated with sputum but slight and now no more hemoptysis is seen, BUN/creatinine is up to 83/2.47, CBC stable, oxygen saturation 97% on 2 L nasal cannula hemodynamic status stable, he remains on IV steroids breathing treatments antibiotics and steroids appeared to be responding well also has COVID-19 infection 07/28/2021, patient seen eval reexamined during the rounds labs reviewed medications reviewed still have ongoing cough on however sputum is steel pourer 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, no more hemoptysis seen, Sputum culture no pathologic organism have been seen, patient remains afebrile, with oxygen saturation of 91-92% room air, uterus chest x-ray shows slight improvement in bilateral basal infiltrate, labs reviewed today white cell count within normal limit potassium is 5.7 BUN/ creatinine is 77 and 2.4, 07/25/2021, patient seen eval examined during the rounds labs reviewed m edications reviewed, patient has intermittent cough and he is producing clear to yellow sputum mixed with intermittent stye streaks of blood, more short of breath on 2 L oxygen, discussed with infectious disease services will start patient on IV steroids antibiotics send sputum for Gram stain and culture 07/24/2021, patient seen eval examined during the rounds overall no significant change in saturation 95% on room air, patient remains on oral steroids Decadron 6 mg daily, tolerating well today's x-ray reviewed some streak-like infiltrate at the bases cannot be excluded or perihilar infiltrate 07/23/2021, patient seen eval examined in follow-up, respiratory status not much change, chest x-ray reviewed possible interstitial pattern cannot be excluded, patient remains on room air as saturation 94% with stable hemodynamics, blood pressure is the 110/60, patient remains on bronchodilator continuation of home medications including liquids along with daily 6 mg of Decadron, patient has bee n restarted on her midodrine Patient is a 89-year-old male came into the hospital with generalized weakness and fall related to weakness, patient sees Dr. Yadav for primary care activities, cagle denies any night sweats fever or chills denies any chest pain or radiation of pain, no fever no bowel or bladder related problem, patient does have cough with sputum production his labs were significant for a hemoglobin of 12.6, platelet count of 10 7000, BUN/creatinine 56/2.27, glucose is 210, trop onin 0.055 0.0 6 AM 0.047, oxygen saturation is 90% to 95% room air improved to, "test came back positive, chest x-ray and rib x-ray stable pacemaker and wires no infiltrate or heart failure identified no pneumothorax, currently patient is treated with bronchodilators continuation of home medications including amiodarone and requests primary History is significant for coronary artery disease, COPD, GERD, deafness, dyslipidemia, degenerative joint disease osteoarthritis history of pneumonia and sleep apnea Past surgical history significant for a bypass surgery, cardiac cath and stent placement and hernia repair orthopedic repair history of pacemaker insertion, stents no history of smoking through abuse and substance use Objective - Vital Signs Vital signs: Vital Signs Temp 97.9 F 08/11/21 14:00 Pulse 50 L 08/11/21 14:00 Resp 20 08/11/21 14:00 BP 125/67 08/11/21 14:00 Pulse Ox 97 08/11/21 14:00 Intake & Output 08/10/21 08/11/21 08/11/21 18:59 06:59 18:59 Intake Total 380 Output Total 401 - Intake: Oral 380 Output: Urine 400 Stool 1 Other: Voiding Method Urinal Urinal Urinal # Voids 5 - Exam - Exam - Constitutional General appearance: average body habitus, cooperative - EENT Eyes: PERRLA Ears: bilateral: normal - Neck Carotids: bilateral: upstroke normal Thyroid: bilateral: normal size - Respiratory Respiratory: bilateral: CTA - Cardiovascular Rhythm: regular Heart sounds: normal: S1, S2 - Gastrointestinal General gastrointestinal: soft - Neurologic Neurologic: CNII-XII intact - Musculoskeletal Musculoskeletal: gait normal, generalized weakness, strength equal bilaterally - Psychiatric Psychiatric: A&O x's 3, appropriate affect, intact judgment & insight - Labs CBC & Chem 7: 08/10/21 07:06 08/10/21 07:06 Labs: Abnormal Lab Results - Last 24 Hours (Table) 08/10/21 08/10/21 08/11/21 Range/Units 12:56 19:57 07:23 POC Glucose (mg/dL) 273 H 156 H (75-99) mg/dL Ferritin 635.0 H (22.0-322.0) ng/mL 08/11/21 08/11/21 Range/Units 11:49 16:34 POC Glucose (mg/dL) 248 H 178 H (75-99) mg/dL Ferritin (22.0-322.0) ng/mL Assessment and Plan Assessment: Acute hypoxic history failure with increased oxygen requirement likely due to worsening inflammation treated response due to COVID-19 pneumonia Bilateral pleural effusion more so on the right side compared to lites right small to moderate Acute on chronic kidney disease Generalized weakness Fall related to weakness Acute on chronic kidney injury COVID-19 infection Intermittent hemoptysis, improving and resolved GERD BPH Dyslipidemia Coronary artery disease with history of CABG and stent placement Plan: Patient on Baricitinib, labs ordered Right-sided thoracentesis will hold, repeat ultrasound in the morning current episode of shortness of breath is due to COVID-19 pneumonia doubt effusion is causing it CT chest and Chest x-ray reviewed since several fluid overload bilateral pleural effusion however correlate related issues cannot be excluded would recommend to repeat forward testing Repeat Joseph Computed tomography scan of the chest reviewed Continue bronchodilators Reviewed results of sputum for Gram stain and culture Continue deep breathing sense incentive spirometry PT OT evaluation ECF/rehab evaluation for placement Renal functions remain elevated but stable Long-term prognosis poor Time with Patient: Greater than 30
[2021-08-11 20:31] LABS: Glucose,Whole Blood 249 mg/dL (75-99)
[2021-08-11] MEDS: METOPROLOL SUCCINATE (ER) 25 MG TAB.ER.24H PO SCH (21:13)
[2021-08-11] MEDS: AMIODARONE 200 MG TAB PO SCH (21:21)
[2021-08-11] MEDS: MONTELUKAST 10 MG TAB PO SCH (21:21)
[2021-08-11] MEDS: ATORVASTATIN 20 MG TAB PO SCH (21:21)
[2021-08-11] MEDS: CHOLECALCIFEROL 25 MCG (1000 IU) TABLET PO SCH (21:21)
--- NOTE | 2021-08-11 22:48 | PN ---
PROGRESS NOTE DATE OF SERVICE: 08/11/2021 REASON FOR FOLLOWUP: Pneumonia. INTERVAL HISTORY: Patient is afebrile. The patient seems to be breathing comfortably. The patient denies having chest pain. He did have a cough, not bringing any sputum. No abdominal pain. No diarrhea. PHYSICAL EXAMINATION: Blood pressure 117/63 with a pulse of 106, temperature 98.2. He is 98% on high-flow oxygen. General description is an elderly male lying in bed in no distress. Respiratory system: Unlabored breathing, decreased intensity of breath sounds. No wheeze. Heart S1, S2. Regular rate and rhythm. Abdomen soft, no tenderness. LABS: No new labs have been obtained today. DIAGNOSTIC IMPRESSION AND PLAN: Patient with pneumonia with initial concern for Covid, now with worsening of his respiratory status. Baricitinib has been added as of yesterday with response to it, in addition to steroids. Continue supportive care. Prognosis remains to be guarded. MMODL / IJN: [id number] /
--- NOTE | 2021-08-11 23:42 | PN ---
PROGRESS NOTE Acute on chronic respiratory failure, pneumonia, Covid pneumonia with secondary bacterial pneumonia, generalized weakness, worsening hypoxemia, pleural effusions, status post stent placement with CABG and COPD. The patient still on 13-15 L of fluid. Possible thoracentesis will be done. This patient has had worsening wheeze, respiratory status over the past week for unclear purposes except for pleural effusion, some CHF. Renal physician cut down the Lasix to 40 b.i.d. yesterday. Temperature 97.9, pulse is 50, respiratory 18-20s, blood pressure 125 over 60s, O2 97. Cardiovascular S1-S2. Lungs: Transmitted upper sounds. GI soft. Hematology negative Homans, 2+ edema. Psych: Alert and oriented x3. Cranial nerves are intact. BUN is 119, creatinine 2.69, hemoglobin 12.3. ASSESSMENT: 1. Acute hypoxemic respiratory failure secondary to possible congestive heart failure, pleural perfusion, worsening inflammation. 2. Covid 19 pneumonia, secondary pneumonia. 3. Acute on chronic renal injury Covid 19 pneumonia. 4. Coronary artery disease. 5. Gastroesophageal reflux disease. 6. Benign prostatic hypertrophy. Patient's is on Baricitinib for Covid, steroids, inhalers. CT scan of the chest shows fluid overload, pleural effusions. Continue antibiotics, bronchodilators, etc. PT/ OT. Prognosis guarded. Follow up next 24 to 48 hours for possible thoracentesis. MMODL / IJN: [id number] /
[2021-08-12] MEDS: methylPREDNISolone SOD SUCCI 40 MG/ML 1 ML VIAL IV SCH ×4 (00:37→17:25)
[2021-08-12] MEDS: PIPERACILLIN-TAZOBACTAM 3.375 GM in SODIUM CHLORIDE 0.9% 100 ML IVPB SCH ×2 (05:08→15:43)
[2021-08-12 07:24] LABS: Glucose,Whole Blood 148 mg/dL (75-99)
[2021-08-12] MEDS: APIXABAN 2.5 MG TABLET PO SCH ×2 (07:25→21:54)
[2021-08-12] MEDS: ASCORBIC ACID 500 MG TAB PO SCH (07:31)
[2021-08-12] MEDS: BENZONATATE 100 MG CAP PO SCH ×3 (07:31→22:38)
[2021-08-12] MEDS: MIDODRINE 5 MG TAB PO SCH ×3 (07:31→17:25)
[2021-08-12] MEDS: PANTOPRAZOLE 40 MG TABLET PO SCH (07:32)
[2021-08-12] MEDS: allopurinoL 300 MG TAB PO SCH (07:32)
[2021-08-12] MEDS: guaiFENesin 600 MG TABLET.ER PO SCH ×2 (07:32→22:38)
[2021-08-12] MEDS: INSULIN ASPART (NovoLOG) 100 UNIT/ML VIAL SQ SCH ×4 (07:32→22:38)
[2021-08-12] MEDS: TAMSULOSIN 0.4 MG CAP.ER.24H PO SCH (07:32)
[2021-08-12] MEDS: ZINC SULFATE 220 MG CAP PO SCH (07:32)
[2021-08-12] MEDS: FINASTERIDE 5 MG TAB PO SCH (07:32)
[2021-08-12] MEDS: KETOTIFEN 0.025% OPHTH DROPS 5 ML BTL BOTH EYES SCH ×2 (07:33→22:39)
[2021-08-12] MEDS: FUROSEMIDE 10 MG/ML 4 ML VIAL IV SCH ×2 (07:33→22:38)
[2021-08-12] MEDS: BARICITINIB 1 MG TABLET PO SCH (07:33)
[2021-08-12] MEDS: CHOLESTYRAMINE (WITH SUGAR) 4 GM PACKET PO SCH ×2 (07:34→17:25)
[2021-08-12] MEDS: ALBUTEROL HFA INHALER INHALATION PRN ×3 (08:06→15:39)
--- NOTE | 2021-08-12 09:41 | US ---
EXAMINATION TYPE: US chest DATE OF EXAM: 08/12/2021 COMPARISON: NONE CLINICAL HISTORY: Pleural Effusion- Thoracentesis. TECHNIQUE: Targeted ultrasound of the posterior lower bilateral hemithoraces Exam done portable EXAM MEASUREMENTS: Right Pleural Effusion pocket size: 8.4 cm Right skin surface to fluid distance: 2.9 cm Left Pleural Effusion pocket size: 6.4 cm Left skin surface to fluid distance: 2.4 cm Right side already marked for possible thoracentesis outside the dept. Left side already marked for possible thoracentesis outside the dept. Pulmonologists are able to review the images in the patient?s EMR. IMPRESSIONS: Bilateral pleural effusion
--- NOTE | 2021-08-12 10:09 | P.PN ---
Subjective Patient is seen in follow-up for acute kidney injury on chronic kidney disease. Creatinine 2.69 on August 10. Hemodynamically stable. On 7 L high flow cannula. Nonoliguric. Has a Aceves catheter. On IV Lasix. Oral intake fair. No vomiting or diarrhea. Vital signs are stable. General: The patient appeared well nourished and normally developed. HEENT: Head exam is unremarkable. LUNGS: Breath sounds decreased. HEART: Rate and Rhythm are regular. ABDOMEN: Soft, no distention. EXTREMITITES: 1+ edema. Objective - Vital Signs Vital signs: Vital Signs Temp 97.6 F 08/12/21 05:23 Pulse 50 L 08/12/21 05:23 Resp 14 08/12/21 05:23 BP 126/69 08/12/21 05:23 Pulse Ox 96 08/12/21 05:23 Intake & Output 08/11/21 08/12/21 08/12/21 18:59 06:59 18:59 Intake Total 380 Output Total 401 625 Balance - Intake: Oral 380 Output: Urine 400 625 Stool 1 Other: Voiding Method Urinal Urinal Diaper Incontinent - Labs CBC & Chem 7: 08/10/21 07:06 08/10/21 07:06 Labs: Abnormal Lab Results - Last 24 Hours (Table) 08/11/21 08/11/21 08/11/21 Range/Units 11:49 16:34 20:24 POC Glucose (mg/dL) 248 H 178 H 249 H (75-99) mg/dL 08/12/21 Range/Units 07:22 POC Glucose (mg/dL) 148 H (75-99) mg/dL Assessment and Plan Plan: Assessment: 1. Acute kidney injury secondary to ATN secondary to COVID-19 infection and cardiorenal syndrome. Renal function stable. Creatinine 2.69 on August 10. Elevated BUN secondary to acute kidney injury as well as steroids. No evidence of GI bleed. UA benign. Right kidney atrophic. Left kidney not seen. No evidence of hydronephrosis. Elevated BUN secondary to acute kidney injury as well as steroids. No evidence of GI bleed. 2. Chronic kidney disease stage IIIB with baseline creatinine the range of 1.5- 2 secondary to nephrosclerosis. 3. COVID-19 pneumonia as well as superimposed bacterial pneumonia. 4. Metabolic acidosis secondary to acute kidney injury. Resolved. 5. Mild hyperkalemia secondary to acute kidney injury and metabolic acidosis. Resolved. 6. Fluid overload. Improved with diuresis. Plan: Maintain IV Lasix. Avoid nephrotoxins. Continue to monitor renal function and urine output. Hold midodrine for systolic blood pressure greater than 110. Follow-up morning labs.
[2021-08-12 10:35] LABS: Basophils # (A) 0 X 10*3/uL (0.00-0.10); Basophils % (A) 0 %; Eosinophils # (A) 0 X 10*3/uL (0.04-0.35); Eosinophils % (A) 0 %; HCT 32.9 % (39.6-50.0); Lymphocytes % (A) 4.7 %; MCH 30.1 pg (27.0-32.0); MCHC 30.4 g/dL (32.0-37.0); MCV 99.1 fL (80.0-97.0); Mean Platelet Volume 11.8 fL (9.5-12.2); Monocytes # (A) 0.08 X 10*3/uL (0.20-1.00); Monocytes % (A) 1.2 %; Neutrophils % (A) 93.5 %; Platelet Count 42 X 10*3/uL (140-440); RBC 3.32 X 10*6/uL (4.40-5.60); RDW 16.2 % (11.5-14.5); WBC 6.42 X 10*3/uL (4.50-10.00)
[2021-08-12 11:44] LABS: Magnesium 2.2 mg/dL (1.5-2.4)
[2021-08-12 11:46] LABS: Albumin 2.8 g/dL (3.8-4.9); Albumin/Globulin Ratio 1.62 (1.60-3.17); Anion Gap 13.4 mmol/L (10.00-18.00); BUN/Creat Ratio 39.93 Ratio (12.00-20.00); Calcium 7.8 mg/dL (8.7-10.3); Globulin 1.8 g/dL (1.6-3.3); Non-African American GFR(CKD) 19.9 (60.0-200.0); Potassium 4.7 mmol/L (3.5-5.5); Total Bilirubin 0.8 mg/dL (0.30-1.20); Total Protein 4.6 g/dL (6.2-8.2)
[2021-08-12 11:56] LABS: Glucose,Whole Blood 251 mg/dL (75-99)
[2021-08-12 13:20] VITALS: BMI 29.2
--- NOTE | 2021-08-12 16:01 | P.PN ---
Subjective Progress Note Date: 08/12/21 Principal diagnosis: Acute on chronic hypoxic respiratory failure Pneumonia Blood stained sputum secondary pneumonia Generalized weakness Fall related to weakness COVID-19 infection GERD BPH Dyslipidemia Coronary artery disease with history of CABG and stent placement 08/12/2021, patient seen eval examined during the rounds labs reviewed medications reviewed care plan discussed, respiratory status the much better today FiO2 decreased to 7 L rhonchi or 13 L now, patient feeling less short of breath sitting upright, patient underwent ultrasound of the chest slight incr ease in right-sided pleural effusion seen patient remains on IV Lasix not responding, we will consult interventional radiology for right-sided thoracentesis 08/11/2021, patient seen eval examined during the rounds labs reviewed medications reviewed care plan discussed, respiratory status slightly better FiO2 decreased down from 15 needed to 13 L breathing more comfortably, have early looked on ultrasound of the chest bilateral, small to moderate pleural effusion bilaterally is present, we'll continue to hold on the direct anticoagulant, we will hold thoracentesis repeat ultrasound of the chest in the morning, current therapy for pneumonia as well as COVID-19 infection appears to be working O follow closely 08/10/2021, patient seen eval reexamined during the rounds labs reviewed medications reviewed care plan discussed with the patient, as well as the the RN at length, patient continued to be acutely hypoxic FiO2 have been increased to 15 L high flow oxygen, renal functions remains on the poor side without any significant change, bilateral pleural effusion were seen on radiographic study patient underwent ultrasound of the chest which I reviewed it the hard copy there is a bilateral pleural effusion small to moderate bilaterally is present but however fluid is more accessible on the right side on the left side it's in the form of somewhat in close pocket, patient is on anticoagulation with liquids will hold it lunch to right-sided thoracentesis tomorrow Concern about hypoxia and desaturation acute worsening in the last 72 hours, discussed with the RN as well as the pharmacy, patient will benefit from Baricitinib discussed with pharmacy about prerequisite, labs ordered for d- dimer, C-reactive protein, LDH 08/09/2021, examined during the rounds labs reviewed medications reviewed care plan discussed, respiratory status still marginal patient oxygen requirement is now 9 L now which have been significantly worse, patient underwent computed tomography scan of the chest finding reviewed, mild to moderate bilateral pleural effusion is seen, cardiomegaly, 4.6 cm ascending aorta, finding consistent with congestive heart failure however cold with associated disease process cannot be excluded, would recommend repeat the Covid testing before initiation and therapeutic trial Baricitinib 08/08/2021, patient relatively more short of breath than baseline, oxygen requirement has increased though, creatinine, patient remains afebrile, oxygen requirement now is 9 L, patient is being planned for computed tomography scan of the chest, chest x-ray positive for edema as well as bilateral infiltrate 08/06/2021, patient seen and evaluated examined, respiratory status remained stable, oxygen saturation on 3 L nasal cannula is 91% for pressure is 119/56 patient remains afebrile, tolerating bronchodilator as well, remains on low-dose diuretic anticoagulant, patient is off of antibiotics, on diuretics, Hexadrol milligrams daily 08/05/2021, patient seen eval examined during the rounds labs reviewed medications reviewed care plan discussed, patient remains 2-3 L oxygen, currently on 3 L with the saturation 92%, Ms. afebrile, 08/04/2021, patient seen eval examined during the rounds labs reviewed medications reviewed sitting upright in chair breathing comfortably, remains on 3 L oxygen, intermittent cough is present mostly is dry now, meds reviewed, remains on bronchodilator, direct oral anticoagulant, oral Decadron, off of antibiotics now him a BUN/creatinine is 103/2.52, sugars 232, last covid testing was performed on the 16 of this month we'll repeat as symptoms significantly improved, and we'll help placement 08/01/2021, patient seen and evaluated examined during the rounds labs reviewed medications reviewed care plan discussed with the staff and patient at length, hemodynamic status stable however blood pressure slightly high, just received his medications from this morning, intermittent cough is present sputum is mucoid thick, patient currently on 2 L oxygen, independently has been going back and forth in room air oxygen, patient has been switched to oral Augmentin by primary service, remains on direct oral anticoagulant, patient lives by himself at home, extremely weak and requires support to stand currently in the process of being evaluated for placement ECF for short-term rehab 07/31/2021, patient seen eval examined during the rounds labs reviewed medications reviewed care plan discussed, respiratory status continued to be stable, patient now is on room air breathing comfortably, feet, does have cough sputum is light yellow 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, PERRL no hemoptysis has been seen, patient is off of IV steroids for now on Decadron for COVID-19 pneumonia inflammation, she remains on broad-spectrum antibiotics with Zosyn for bilateral basal pneumonia which clinically has been improving, but however still needs it, 07/30/2021, patient seen eval examined during the rounds labs reviewed medications reviewed care plan discussed, respiratory status remains stable intermittently patient has been on room air as well, cough is associated with sputum which is light in color and appearance no more hemoptysis seen, today's labs are reviewed white cell count is 7000 hemoglobin and hematocrit 12 and 39, platelets are 1 46,000, potassium is 5.3 showing a downward trend BUN/creatinine elevated but remains stable 82/2.51, patient back on Hexadrol off of IV steroids 07/29/2021, patient seen eval examined during the rounds labs reviewed medications reviewed, is still short of breath on activity and exertion cough is associated with sputum but slight and now no more hemoptysis is seen, BUN/creatinine is up to 83/2.47, CBC stable, oxygen saturation 97% on 2 L nasal cannula hemodynamic status stable, he remains on IV steroids breathing treatments antibiotics and steroids appeared to be responding well also has COVID-19 infection 07/28/2021, patient seen eval reexamined during the rounds labs reviewed medications reviewed still have ongoing cough on however 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, no more hemoptysis seen, Sputum culture no pathologic organism have been seen, patient remains afebrile, with oxygen saturation of 91-92% room air, uterus chest x-ray shows slight improvement in bilateral basal infiltrate, labs reviewed today white cell count within normal limit potassium is 5.7 BUN/creatinine is 77 and 2.4, 07/25/2021, patient seen eval examined during the rounds labs reviewed medications reviewed, patient has intermittent cough and he is producing clear to yellow sputum mixed with intermittent stye streaks of blood, more short of breath on 2 L oxygen, discussed with infectious disease services will start patient on IV steroids antibiotics send sputum for Gram stain and culture 07/24/2021, patient seen eval examined during the rounds overall no significant change in saturation 95% on room air, patient remains on oral steroids Decadron 6 mg daily, tolerating well today's x-ray reviewed some streak-like infiltrate at the bases cannot be excluded or perihilar infiltrate 07/23/2021, patient seen eval examined in follow-up, respiratory status not much change, chest x-ray reviewed possible interstitial pattern cannot be excluded, patient remains on room air as saturation 94% with stable hemodynamics, blood pressure is the 110/60, patient remains on bronchodilator continuation of home medications including liquids along with daily 6 mg of Decadron, patient has been restarted on her midodrine Patient is a 89-year-old male came into the hospital with generalized weakness and fall related to weakness, patient sees Dr. Yadav for primary care activities, cagle denies any night sweats fever or chills denies any chest pain or radiation of pain, no fever no bowel or bladder related problem, patient does have cough with sputum production his labs were significant for a hemoglobin of 12.6, platelet count of 10 7000, BUN/creatinine 56/2.27, glucose is 210, troponin 0.055 0.0 6 AM 0.047, oxygen saturation is 90% to 95% room air improved to, "test came back positive, chest x-ray and rib x-ray stable pacemaker and wires no infiltrate or heart failure identified no pneumothorax, currently patient is treated with bronchodilators continuation of home medications including amiodarone and requests primary History is significant for coronary artery disease, COPD, GERD, deafness, dyslipidemia, degenerative joint disease osteoarthritis history of pneumonia and sleep apnea Past surgical history significant for a bypass surgery, cardiac cath and stent placement and hernia repair orthopedic repair history of pacemaker insertion, stents no history of smoking through abuse and substance use Objective - Vital Signs Vital signs: Vital Signs Temp 97.6 F 08/12/21 14:00 Pulse 50 L 08/12/21 14:00 Resp 18 08/12/21 14:00 BP 110/56 08/12/21 14:00 Pulse Ox 97 08/12/21 14:00 Intake & Output 08/11/21 08/12/21 08/12/21 18:59 06:59 18:59 Intake Total 380 Output Total 401 625 Balance - Weight 82 kg Intake: Oral 380 Output: Urine 400 625 Stool 1 Other: Voiding Method Urinal Urinal Diaper Incontinent - Exam - Exam - Constitutional General appearance: average body habitus, cooperative - EENT Eyes: PERRLA Ears: bilateral: normal - Neck Carotids: bilateral: upstroke normal Thyroid: bilateral: normal size - Respiratory Respiratory: bilateral: CTA - Cardiovascular Rhythm: regular Heart sounds: normal: S1, S2 - Gastrointestinal General gastrointestinal: soft - Neurologic Neurologic: CNII-XII intact - Musculoskeletal Musculoskeletal: gait normal, generalized weakness, strength equal bilaterally - Psychiatric Psychiatric: A&O x's 3, appropriate affect, intact judgment & insight - Labs CBC & Chem 7: 08/12/21 06:21 12 06:21 Labs: Abnormal Lab Results - Last 24 Hours (Table) 08/11/21 08/11/21 08/12/21 Range/Units 16:34 20:24 06:21 RBC (4.40-5.60) X 10*6/uL Hgb (13.0-17.0) g/dL Hct (39.6-50.0) % MCV (80.0-97.0) fL MCHC (32.0-37.0) g/dL RDW (11.5-14.5) % Plt Count (140-440) X 10*3/uL Plt Count Comment Lymphocytes # (0.90-5.00) X 10*3/uL Monocytes # (0.20-1.00) X 10*3/uL Eosinophils # (0.04-0.35) X 10*3/uL Immature Plt Fraction (1.1-6.1) % Carbon Dioxide 30.0 H (20.0-27.5) mmol/L BUN 109.0 H* (9.0-27.0) mg/dL Creatinine 2.7 H (0.6-1.5) mg/dL Est GFR (CKD-EPI)AfAm 23.0 L (60.0-200.0) Est GFR (CKD-EPI)NonAf 19.9 L (60.0-200.0) BUN/Creatinine Ratio 39.93 H (12.00-20.00) Ratio Glucose 146 H (70-110) mg/dL POC Glucose (mg/dL) 178 H 249 H (75-99) mg/dL Calcium 7.8 L (8.7-10.3) mg/dL AST 56 H (14-35) U/L ALT 65 H (10-49) U/L Total Protein 4.6 L (6.2-8.2) g/dL Albumin 2.8 L (3.8-4.9) g/dL 08/12/21 08/12/21 08/12/21 Range/Units 06:21 07:22 11:55 RBC 3.32 L (4.40-5.60) X 10*6/uL Hgb 10.0 L (13.0-17.0) g/dL Hct 32.9 L (39.6-50.0) % MCV 99.1 H (80.0-97.0) fL MCHC 30.4 L (32.0-37.0) g/dL RDW 16.2 H (11.5-14.5) % Plt Count 42 L (140-440) X 10*3/uL Plt Count Comment A Lymphocytes # 0.30 L (0.90-5.00) X 10*3/uL Monocytes # 0.08 L (0.20-1.00) X 10*3/uL Eosinophils # 0 L (0.04-0.35) X 10*3/uL Immature Plt Fraction 6.9 H (1.1-6.1) % Carbon Dioxide (20.0-27.5) mmol/L BUN (9.0-27.0) mg/dL Creatinine (0.6-1.5) mg/dL Est GFR (CKD-EPI)AfAm (60.0-200.0) Est GFR (CKD-EPI)NonAf (60.0-200.0) BUN/Creatinine Ratio (12.00-20.00) Ratio Glucose (70-110) mg/dL POC Glucose (mg/dL) 148 H 251 H (75-99) mg/dL Calcium (8.7-10.3) mg/dL AST (14-35) U/L ALT (10-49) U/L Total Protein (6.2-8.2) g/dL Albumin (3.8-4.9) g/dL Assessment and Plan Assessment: Acute hypoxic history failure with increased oxygen requirement likely due to worsening inflammation treated response due to COVID-19 pneumonia, slowly improving now Bilateral pleural effusion more so on the right side compared to lites right moderate appears to have increased Acute on chronic kidney disease Generalized weakness Fall related to weakness Acute on chronic kidney injury COVID-19 infection Intermittent hemoptysis, improving and resolved GERD BPH Dyslipidemia Coronary artery disease with history of CABG and stent placement Plan: Continue Baricitinib, patient appears to be responding well We will consult interventional radiology for Right-sided thoracentesis effusion continued to increase despite of aggressive diuresis Ultrasound of the chest, CT chest and Chest x-ray reviewed since several fluid overload bilateral pleural effusion however correlate related issues cannot be excluded would recommend to repeat forward testing Repeat Joseph Computed tomography scan of the chest reviewed Continue bronchodilators Reviewed results of sputum for Gram stain and culture Continue deep breathing sense incentive spirometry PT OT evaluation ECF/rehab evaluation for placement Renal functions remain elevated but stable Long-term prognosis poor Time with Patient: Greater than 30
[2021-08-12 16:35] LABS: Glucose,Whole Blood 237 mg/dL (75-99)
[2021-08-12 20:12] LABS: Glucose,Whole Blood 219 mg/dL (75-99)
[2021-08-12] MEDS: ATORVASTATIN 20 MG TAB PO SCH (22:38)
[2021-08-12] MEDS: CHOLECALCIFEROL 25 MCG (1000 IU) TABLET PO SCH (22:38)
[2021-08-12] MEDS: METOPROLOL SUCCINATE (ER) 25 MG TAB.ER.24H PO SCH (22:39)
[2021-08-12] MEDS: MONTELUKAST 10 MG TAB PO SCH (22:39)
[2021-08-12] MEDS: AMIODARONE 200 MG TAB PO SCH (22:39)
[2021-08-13] MEDS ORDERED: methylPREDNISolone SOD SUCCI 40 MG/ML 1 ML VIAL ONE
--- NOTE | 2021-08-13 02:15 | PN ---
PROGRESS NOTE This 89-year-old white male has acute on chronic hypoxemic respiratory failure, pneumonia pneumonia. He has a slight bloody nose, COVID-19 infection, possible secondary bacterial infection. He is down to 7 L of oxygen from 13, less short of breath. Ultrasound shows slight increase in right-sided pleural effusion not responding to IV Lasix. Of course he needs interventional radiologist to drain the right-sided fluid off the lung, which was delayed a couple days. He has been off Eliquis. Cardiovascular S1-S2. Lungs transmitted upper sounds. GI soft. Hematology negative Homans. ASSESSMENT: 1. Chronic obstructive pulmonary disease. 2. Congestive heart failure. 3. COVID pneumonia. 4. Pleural effusion. 5. Hypoxemic respiratory distress. Interventional Radiology to do a thoracentesis, as he has failed Lasix for multiple days and he is dehydrated and has high BUN and creatinine, worsening renal failure. Prognosis guarded. MMODL / IJN: [id number] /
--- NOTE | 2021-08-13 02:15 | PN ---
PROGRESS NOTE DATE OF SERVICE: 08/12/2021 REASON FOR FOLLOWUP: Pneumonia. INTERVAL HISTORY: The patient is afebrile. The patient is breathing more comfortably. The patient denies having any chest pain or worsening cough or sputum production. No abdominal pain or diarrhea. PHYSICAL EXAMINATION: Blood pressure 115/62 with a pulse of 52, temperature 98.2. He is 94% on 5 L nasal cannula. General description is an elderly male up in the chair in no distress. Respiratory system: Unlabored breathing. Coarse breath sounds at the base bilaterally. No wheeze. Heart S1, S2. Regular rate and rhythm. Abdomen soft, no tenderness. LABS: Hemoglobin is 10, white count 6.42, creatinine is 2.7. DIAGNOSTIC IMPRESSION AND PLAN: Patient with pneumonia and acute respiratory changes which are likely multifactorial with a component of fluid overload from underlying renal failure plus/minus pneumonia. Patient is covered with Zosyn empirically. That will be continued for now while monitoring his clinical course closely. Continue with supportive care. MMODL / IJN: [id number] /
[2021-08-13] MEDS: methylPREDNISolone SOD SUCCI 40 MG/ML 1 ML VIAL IV SCH ×5 (03:45→23:35)
[2021-08-13] MEDS: PIPERACILLIN-TAZOBACTAM 3.375 GM in SODIUM CHLORIDE 0.9% 100 ML IVPB SCH ×2 (05:39→17:10)
[2021-08-13 07:20] LABS: Glucose,Whole Blood 237 mg/dL (75-99)
[2021-08-13 07:28] LABS: INR 1.3 (<1.2); Prothrombin Time 12.9 sec (9.0-12.0)
[2021-08-13] MEDS: ALBUTEROL HFA INHALER INHALATION PRN ×4 (08:00→21:21)
[2021-08-13] MEDS: APIXABAN 2.5 MG TABLET PO SCH ×3 (08:17→12:33)
[2021-08-13] MEDS: CHOLESTYRAMINE (WITH SUGAR) 4 GM PACKET PO SCH ×2 (08:28→17:11)
[2021-08-13] MEDS: ASCORBIC ACID 500 MG TAB PO SCH (08:28)
[2021-08-13] MEDS: BENZONATATE 100 MG CAP PO SCH ×3 (08:28→20:28)
[2021-08-13] MEDS: FINASTERIDE 5 MG TAB PO SCH (08:28)
[2021-08-13] MEDS: FUROSEMIDE 10 MG/ML 4 ML VIAL IV SCH ×2 (08:29→20:27)
[2021-08-13] MEDS: BARICITINIB 1 MG TABLET PO SCH (08:29)
[2021-08-13] MEDS: allopurinoL 300 MG TAB PO SCH (08:29)
[2021-08-13] MEDS: guaiFENesin 600 MG TABLET.ER PO SCH ×2 (08:29→20:28)
[2021-08-13] MEDS: MIDODRINE 5 MG TAB PO SCH ×3 (08:31→17:10)
[2021-08-13] MEDS: ZINC SULFATE 220 MG CAP PO SCH (08:32)
[2021-08-13] MEDS: TAMSULOSIN 0.4 MG CAP.ER.24H PO SCH (08:32)
[2021-08-13] MEDS: INSULIN ASPART (NovoLOG) 100 UNIT/ML VIAL SQ SCH ×4 (08:36→21:56)
[2021-08-13] MEDS: PANTOPRAZOLE 40 MG TABLET PO SCH (08:36)
[2021-08-13] MEDS: KETOTIFEN 0.025% OPHTH DROPS 5 ML BTL BOTH EYES SCH ×2 (08:40→20:28)
--- NOTE | 2021-08-13 10:17 | P.PN ---
Subjective Progress Note Date: 08/13/21 Principal diagnosis: Acute on chronic hypoxic respiratory failure Pneumonia Blood stained sputum secondary pneumonia Generalized weakness Fall related to weakness COVID-19 infection GERD BPH Dyslipidemia Coronary artery disease with history of CABG and stent placement 08/13/2021, patient seen eval examined during the rounds labs reviewed medications reviewed, patient has progressive thrombocytopenia, IR refuse to do thoracentesis which is on hold, Dr. Shaw from hematology has been consulted, labs not done today, patient oxygen demand continued to improve currently on 5 L nasal cannula, denies any chest pain ongoing shortness of breath especially on exertion however is present dry nonproductive cough is present, patient on the direct oral anticoagulant which is currently on hold, IV steroids and antibiotics broad spectrum along with BARICITINAB tolerating well 08/12/2021, patient seen eval examined during the rounds labs reviewed medications reviewed care plan discussed, respiratory status the much better today FiO2 decreased to 7 L rhonchi or 13 L now, patient feeling less short of breath sitting upright, patient underwent ultrasound of the chest slight i ncrease in right-sided pleural effusion seen patient remains on IV Lasix not responding, we will consult interventional radiology for right-sided thoracentesis 08/11/2021, patient seen eval examined during the rounds labs reviewed medications reviewed care plan discussed, respiratory status slightly better FiO2 decreased down from 15 needed to 13 L breathing more comfortably, have early looked on ultrasound of the chest bilateral, small to moderate pleural effusion bilaterally is present, we'll continue to hold on the direct anticoagulant, we will hold thoracentesis repeat ultrasound of the chest in the morning, current for pneumonia as well as COVID-19 infection appears to be working O follow closely 08/10/2021, patient seen eval reexamined during the rounds labs reviewed medications reviewed care plan discussed with the patient, as well as the the RN at length, patient continued to be acutely hypoxic FiO2 have been increased to 15 L high flow oxygen, renal functions remains on the poor side without any significant change, bilateral pleural effusion were seen on radiographic study patient underwent ultrasound of the chest which I reviewed it the hard copy there is a bilateral pleural effusion small to moderate bilaterally is present but however fluid is more accessible on the right side on the left side it's in the form of somewhat in close pocket, patient is on anticoagulation with liquids will hold it lunch to right-sided thoracentesis tomorrow Concern about hypoxia and desaturation acute worsening in the last 72 hours, discussed with the RN as well as the pharmacy, patient will benefit from Baricitinib discussed with pharmacy about prerequisite, labs ordered for d- dimer, C-reactive protein, LDH 08/09/2021, examined during the rounds labs reviewed medications reviewed care plan discussed, respiratory status still marginal patient oxygen requirement is now 9 L now which have been significantly worse, patient underwent computed tomography scan of the chest finding reviewed, mild to moderate bilateral pleural effusion is seen, cardiomegaly, 4.6 cm ascending aorta, finding consistent with congestive heart failure however cold with associated disease process cannot be excluded, would recommend repeat the Covid testing before initiation and therapeutic trial Baricitinib 08/08/2021, patient relatively more short of breath than baseline, oxygen requirement has increased though, creatinine, patient remains afebrile, oxygen requirement now is 9 L, patient is being planned for computed tomography scan of the chest, chest x-ray positive for edema as well as bilateral infiltrate 08/06/2021, patient seen and evaluated examined, respiratory status remained s table, oxygen saturation on 3 L nasal cannula is 91% for pressure is 119/56 patient remains afebrile, tolerating bronchodilator as well, remains on low-dose diuretic anticoagulant, patient is off of antibiotics, on diuretics, Hexadrol milligrams daily 08/05/2021, patient seen eval examined during the rounds labs reviewed medications reviewed care plan discussed, patient remains 2-3 L oxygen, curr ently on 3 L with the saturation 92%, Ms. afebrile, 08/04/2021, patient seen eval examined during the rounds labs reviewed medications reviewed sitting upright in chair breathing comfortably, remains on 3 L oxygen, intermittent cough is present mostly is dry now, meds reviewed, remains on bronchodilator, direct oral anticoagulant, oral Decadron, off of antibiotics now him a BUN/creatinine is 103/2.52, sugars 232, last covid testing was performed on the of this month we'll repeat as symptoms significantly improved, and we'll help placement 08/01/2021, patient seen and evaluated examined during the rounds labs reviewed medications reviewed care plan discussed with the staff and patient at length, hemodynamic status stable however blood pressure slightly high, just received his medications from this morning, intermittent cough is present sputum is mucoid thick, patient currently on 2 L oxygen, independently has been going back and forth in room air oxygen, patient has been switched to oral Augmentin by primary service, remains on direct oral anticoagulant, patient lives by himself at home, extremely weak and requires support to stand currently in the process of being evaluated for placement ECF for short-term rehab 07/31/2021, patient seen eval examined during the rounds labs reviewed medications reviewed care plan discussed, respiratory status continued to be stable, patient now is on room air breathing comfortably, feet, does have cough sputum is light yellow 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, PERRL no hemoptysis has been seen, patient is off of IV steroids for now on Decadron for COVID-19 pneumonia inflammation, she remains on broad-spectrum antibiotics with Zosyn for bilateral basal pneumonia which clinically has been improving, but however still needs it, 07/30/2021, patient seen eval examined during the rounds labs reviewed medications reviewed care plan discussed, respiratory status remains stable intermittently patient has been on room air as well, cough is associated with sputum which is light in color and appearance no more hemoptysis seen, today's labs are reviewed white cell count is 7000 hemoglobin and hematocrit 12 and 39, platelets are 1 46,000, potassium is 5.3 showing a downward trend BUN/creatinine elevated but remains stable 82/2.51, patient back on Hexadrol off of IV steroids 07/29/2021, patient seen eval examined during the rounds labs reviewed medic ations reviewed, is still short of breath on activity and exertion cough is associated with sputum but slight and now no more hemoptysis is seen, BUN/creatinine is up to 83/2.47, CBC stable, oxygen saturation 97% on 2 L nasal cannula hemodynamic status stable, he remains on IV steroids breathing alejandro atments antibiotics and steroids appeared to be responding well also has COVID- 19 infection 07/28/2021, patient seen eval reexamined during the rounds labs reviewed medications reviewed still have ongoing cough on however sputum is intertype operator 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, no more hemoptysis seen, Sputum culture no pathologic organism have been seen, patient remains afebrile, with oxygen saturation of 91-92% room air, uterus chest x-ray shows slight improvement in bilateral basal infiltrate, labs reviewed today white cell count within normal limit potassium is 5.7 BUN/creatinine is 77 and 2.4, 07/25/2021, patient seen eval examined during the rounds labs reviewed medications reviewed, patient has intermittent cough and he is producing clear to yellow sputum mixed with intermittent stye streaks of blood, more short of breath on 2 L oxygen, discussed with infectious disease services will start patient on IV steroids antibiotics send sputum for Gram stain and culture 07/24/2021, patient seen eval examined during the rounds overall no significant change in saturation 95% on room air, patient remains on oral steroids Decadron 6 mg daily, tolerating well today's x-ray reviewed some streak-like infiltrate at the bases cannot be excluded or perihilar infiltrate 07/23/2021, patient seen eval examined in follow-up, respiratory status not much change, chest x-ray reviewed possible interstitial pattern cannot be excluded, patient remains on room air as saturation 94% with stable hemodynamics, blood pr essure is the 110/60, patient remains on bronchodilator continuation of home medications including liquids along with daily 6 mg of Decadron, patient has been restarted on her midodrine Patient is a 89-year-old male came into the hospital with generalized weakness and fall related to weakness, patient sees Dr. Yadav for primary care activities, cagle denies any night sweats fever or chills denies any chest pain or radiation of pain, no fever no bowel or bladder related problem, patient does have cough with sputum production his labs were significant for a hemoglobin of 12.6, platelet count of 10 7000, BUN/creatinine 56/2.27, glucose is 210, troponin 0.055 0.0 6 AM 0.047, oxygen saturation is 90% to 95% room air improved to, "test came back positive, chest x-ray and rib x-ray stable pacemaker and wires no infiltrate or heart failure identified no pneumothorax, currently patient is treated with bronchodilators continuation of home medications including amiodarone and requests primary History is significant for coronary artery disease, COPD, GERD, deafness, dyslipidemia, degenerative joint disease osteoarthritis history of pneumonia and sleep apnea Past surgical history significant for a bypass surgery, cardiac cath and stent placement and hernia repair orthopedic repair history of pacemaker insertion, stents no history of smoking through abuse and substance use Objective - Vital Signs Vital signs: Vital Signs Temp 98.5 F 08/13/21 05:04 Pulse 55 L 08/13/21 05:04 Resp 15 08/13/21 05:04 BP 123/56 08/13/21 05:04 Pulse Ox 95 08/13/21 05:04 Intake & Output 08/12/21 08/13/21 08/13/21 18:59 06:59 18:59 Output Total 500 Balance -500 Weight 82 kg Output: Urine 500 Other: Voiding Method Urinal Diaper Incontinent # Voids 5 3 - Exam - Exam - Constitutional General appearance: average body habitus, cooperative - EENT Eyes: PERRLA Ears: bilateral: normal - Neck Carotids: bilateral: upstroke normal Thyroid: bilateral: normal size - Respiratory Respiratory: bilateral: CTA - Cardiovascular Rhythm: regular Heart sounds: normal: S1, S2 - Gastrointestinal General gastrointestinal: soft - Neurologic Neurologic: CNII-XII intact - Musculoskeletal Musculoskeletal: gait normal, generalized weakness, strength equal bilaterally - Psychiatric Psychiatric: A&O x's 3, appropriate affect, intact judgment & insight - Labs CBC & Chem 7: 08/12/21 06:21 08/12/21 06:21 Labs: Abnormal Lab Results - Last 24 Hours (Table) 08/12/21 08/12/21 08/12/21 Range/Units 06:21 06:21 11:55 RBC 3.32 L (4.40-5.60) X 10*6/uL Hgb 10.0 L (13.0-17.0) g/dL Hct 32.9 L (39.6-50.0) % MCV 99.1 H (80.0-97.0) fL MCHC 30.4 L (32.0-37.0) g/dL RDW 16.2 H (11.5-14.5) % Plt Count 42 L (140-440) X 10*3/uL Plt Count Comment A Lymphocytes # 0.30 L (0.90-5.00) X 10*3/uL Monocytes # 0.08 L (0.20-1.00) X 10*3/uL Eosinophils # 0 L (0.04-0.35) X 10*3/uL Immature Plt Fraction 6.9 H (1.1-6.1) % PT (9.0-12.0) sec INR (<1.2) Carbon Dioxide 30.0 H (20.0-27.5) mmol/L BUN 109.0 H* (9.0-27.0) mg/dL Creatinine 2.7 H (0.6-1.5) mg/dL Est GFR (CKD-EPI)AfAm 23.0 L (60.0-200.0) Est GFR (CKD-EPI)NonAf 19.9 L (60.0-200.0) BUN/Creatinine Ratio 39.93 H (12.00-20.00) Ratio Glucose 146 H (70-110) mg/dL POC Glucose (mg/dL) 251 H (75-99) mg/dL Calcium 7.8 L (8.7-10.3) mg/dL AST 56 H (14-35) U/L ALT 65 H (10-49) U/L Total Protein 4.6 L (6.2-8.2) g/dL Albumin 2.8 L (3.8-4.9) g/dL 08/12/21 08/12/21 08/13/21 Range/Units 16:34 20:10 06:44 RBC (4.40-5.60) X 10*6/uL Hgb (13.0-17.0) g/dL Hct (39.6-50.0) % MCV (80.0-97.0) fL MCHC (32.0-37.0) g/dL RDW (11.5-14.5) % Plt Count (140-440) X 10*3/uL Plt Count Comment Lymphocytes # (0.90-5.00) X 10*3/uL Monocytes # (0.20-1.00) X 10*3/uL Eosinophils # (0.04-0.35) X 10*3/uL Immature Plt Fraction (1.1-6.1) % PT 12.9 H (9.0-12.0) sec INR 1.3 H (<1.2) Carbon Dioxide (20.0-27.5) mmol/L BUN (9.0-27.0) mg/dL Creatinine (0.6-1.5) mg/dL Est GFR (CKD-EPI)AfAm (60.0-200.0) Est GFR (CKD-EPI)NonAf (60.0-200.0) BUN/Creatinine Ratio (12.00-20.00) Ratio Glucose (70-110) mg/dL POC Glucose (mg/dL) 237 H 219 H (75-99) mg/dL Calcium (8.7-10.3) mg/dL AST (14-35) U/L ALT (10-49) U/L Total Protein (6.2-8.2) g/dL Albumin (3.8-4.9) g/dL 08/13/21 Range/Units 07:19 RBC (4.40-5.60) X 10*6/uL Hgb (13.0-17.0) g/dL Hct (39.6-50.0) % MCV (80.0-97.0) fL MCHC (32.0-37.0) g/dL RDW (11.5-14.5) % Plt Count (140-440) X 10*3/uL Plt Count Comment Lymphocytes # (0.90-5.00) X 10*3/uL Monocytes # (0.20-1.00) X 10*3/uL Eosinophils # (0.04-0.35) X 10*3/uL Immature Plt Fraction (1.1-6.1) % PT (9.0-12.0) sec INR (<1.2) Carbon Dioxide (20.0-27.5) mmol/L BUN (9.0-27.0) mg/dL Creatinine (0.6-1.5) mg/dL Est GFR (CKD-EPI)AfAm (60.0-200.0) Est GFR (CKD-EPI)NonAf (60.0-200.0) BUN/Creatinine Ratio (12.00-20.00) Ratio Glucose (70-110) mg/dL POC Glucose (mg/dL) 237 H (75-99) mg/dL Calcium (8.7-10.3) mg/dL AST (14-35) U/L ALT (10-49) U/L Total Protein (6.2-8.2) g/dL Albumin (3.8-4.9) g/dL Assessment and Plan Assessment: Thrombocytopenia Acute hypoxic history failure with increased oxygen requirement likely due to worsening inflammation treated response due to COVID-19 pneumonia, slowly improving now Bilateral pleural effusion more so on the right side compared to lites right moderate appears to have increased Acute on chronic kidney disease Generalized weakness Fall related to weakness Acute on chronic kidney injury COVID-19 infection Intermittent hemoptysis, improving and resolved GERD BPH Dyslipidemia Coronary artery disease with history of CABG and stent placement Plan: Dr. Shaw have been consulted, awaiting further recommendation, labs ordered for today Continue Baricitinib, patient appears to be responding well We will consult interventional radiology for Right-sided thoracentesis effusion continued to increase despite of aggressive diuresis Ultrasound of the chest, CT chest and Chest x-ray reviewed since several fluid overload bilateral pleural effusion however correlate related issues cannot be excluded would recommend to repeat forward testing Repeat Joseph Computed tomography scan of the chest reviewed Continue bronchodilators Reviewed results of sputum for Gram stain and culture Continue deep breathing sense incentive spirometry PT OT evaluation ECF/rehab evaluation for placement Renal functions remain elevated but stable Long-term prognosis poor Time with Patient: Greater than 30
[2021-08-13 10:31] LABS: Magnesium 2.2 mg/dL (1.5-2.4)
[2021-08-13 10:44] LABS: African American GFR (CKD) 22.3 (60.0-200.0); Albumin 2.8 g/dL (3.8-4.9); Albumin/Globulin Ratio 1.65 (1.60-3.17); Anion Gap 13.4 mmol/L (10.00-18.00); BUN/Creat Ratio 43.93 Ratio (12.00-20.00); Calcium 7.7 mg/dL (8.7-10.3); Carbon Dioxide 27.6 mmol/L (20.0-27.5); Globulin 1.7 g/dL (1.6-3.3); Non-African American GFR(CKD) 19.3 (60.0-200.0); Potassium 4.7 mmol/L (3.5-5.5); Total Bilirubin 0.6 mg/dL (0.30-1.20); Total Protein 4.5 g/dL (6.2-8.2)
[2021-08-13 10:52] LABS: Basophils # (A) 0 X 10*3/uL (0.00-0.10); Basophils % (A) 0 %; Eosinophils # (A) 0 X 10*3/uL (0.04-0.35); Eosinophils % (A) 0 %; HCT 29.7 % (39.6-50.0); HGB 9.5 g/dL (13.0-17.0); Lymphocytes % (A) 4.5 %; MCH 30.5 pg (27.0-32.0); MCV 95.5 fL (80.0-97.0); Mean Platelet Volume 12.4 fL (9.5-12.2); Monocytes # (A) 0.09 X 10*3/uL (0.20-1.00); Monocytes % (A) 1.4 %; Neutrophils # (A) 6.17 X 10*3/uL (1.80-7.70); Neutrophils % (A) 93.5 %; Platelet Count 39 X 10*3/uL (140-440); RBC 3.11 X 10*6/uL (4.40-5.60); RDW 16.2 % (11.5-14.5)
--- NOTE | 2021-08-13 11:41 | P.PN ---
Subjective Patient is seen in follow-up for acute kidney injury on chronic kidney disease. Renal function fairly stable. Hemodynamically stable. On 5 L high flow cannula. Nonoliguric. On IV Lasix. Oral intake fair. No vomiting or diarrhea. Vital signs are stable. General: The patient appeared well nourished and normally developed. HEENT: Head exam is unremarkable. LUNGS: Breath sounds decreased. HEART: Rate and Rhythm are regular. ABDOMEN: Soft, no distention. EXTREMITITES: 1+ edema. Objective - Vital Signs Vital signs: Vital Signs Temp 97.7 F 08/13/21 10:23 Pulse 50 L 08/13/21 10:23 Resp 17 08/13/21 10:23 BP 110/56 08/13/21 10:23 Pulse Ox 95 08/13/21 10:23 Intake & Output 08/12/21 08/13/21 08/13/21 18:59 06:59 18:59 Output Total 500 Balance -500 Weight 82 kg Output: Urine 500 Other: Voiding Method Urinal Diaper Incontinent # Voids 5 3 - Labs CBC & Chem 7: 08/13/21 06:44 08/13/21 06:44 Labs: Abnormal Lab Results - Last 24 Hours (Table) 08/12/21 08/12/21 08/12/21 Range/Units 06:21 11:55 16:34 RBC (4.40-5.60) X 10*6/uL Hgb (13.0-17.0) g/dL Hct (39.6-50.0) % RDW (11.5-14.5) % Plt Count (140-440) X 10*3/uL Plt Count Comment MPV (9.5-12.2) fL Lymphocytes # (0.90-5.00) X 10*3/uL Monocytes # (0.20-1.00) X 10*3/uL Eosinophils # (0.04-0.35) X 10*3/uL Immature Plt Fraction (1.1-6.1) % PT (9.0-12.0) sec INR (<1.2) Carbon Dioxide 30.0 H (20.0-27.5) mmol/L BUN 109.0 H* (9.0-27.0) mg/dL Creatinine 2.7 H (0.6-1.5) mg/dL Est GFR (CKD-EPI)AfAm 23.0 L (60.0-200.0) Est GFR (CKD-EPI)NonAf 19.9 L (60.0-200.0) BUN/Creatinine Ratio 39.93 H (12.00-20.00) Ratio Glucose 146 H (70-110) mg/dL POC Glucose (mg/dL) 251 H 237 H (75-99) mg/dL Calcium 7.8 L (8.7-10.3) mg/dL AST 56 H (14-35) U/L ALT 65 H (10-49) U/L Total Protein 4.6 L (6.2-8.2) g/dL Albumin 2.8 L (3.8-4.9) g/dL 08/12/21 08/13/21 08/13/21 Range/Units 20:10 06:44 06:44 RBC (4.40-5.60) X 10*6/uL Hgb (13.0-17.0) g/dL Hct (39.6-50.0) % RDW (11.5-14.5) % Plt Count (140-440) X 10*3/uL Plt Count Comment MPV (9.5-12.2) fL Lymphocytes # (0.90-5.00) X 10*3/uL Monocytes # (0.20-1.00) X 10*3/uL Eosinophils # (0.04-0.35) X 10*3/uL Immature Plt Fraction (1.1-6.1) % PT 12.9 H (9.0-12.0) sec INR 1.3 H (<1.2) Carbon Dioxide 27.6 H (20.0-27.5) mmol/L BUN 123.0 H* (9.0-27.0) mg/dL Creatinine 2.8 H (0.6-1.5) mg/dL Est GFR (CKD-EPI)AfAm 22.3 L (60.0-200.0) Est GFR (CKD-EPI)NonAf 19.3 L (60.0-200.0) BUN/Creatinine Ratio 43.93 H (12.00-20.00) Ratio Glucose 155 H (70-110) mg/dL POC Glucose (mg/dL) 219 H (75-99) mg/dL Calcium 7.7 L (8.7-10.3) mg/dL AST 53 H (14-35) U/L ALT 69 H (10-49) U/L Total Protein 4.5 L (6.2-8.2) g/dL Albumin 2.8 L (3.8-4.9) g/dL 08/13/21 08/13/21 Range/Units 06:44 07:19 RBC 3.11 L (4.40-5.60) X 10*6/uL Hgb 9.5 L (13.0-17.0) g/dL Hct 29.7 L (39.6-50.0) % RDW 16.2 H (11.5-14.5) % Plt Count 39 L (140-440) X 10*3/uL Plt Count Comment A MPV 12.4 H (9.5-12.2) fL Lymphocytes # 0.30 L (0.90-5.00) X 10*3/uL Monocytes # 0.09 L (0.20-1.00) X 10*3/uL Eosinophils # 0 L (0.04-0.35) X 10*3/uL Immature Plt Fraction 6.6 H (1.1-6.1) % PT (9.0-12.0) sec INR (<1.2) Carbon Dioxide (20.0-27.5) mmol/L BUN (9.0-27.0) mg/dL Creatinine (0.6-1.5) mg/dL Est GFR (CKD-EPI)AfAm (60.0-200.0) Est GFR (CKD-EPI)NonAf (60.0-200.0) BUN/Creatinine Ratio (12.00-20.00) Ratio Glucose (70-110) mg/dL POC Glucose (mg/dL) 237 H (75-99) mg/dL Calcium (8.7-10.3) mg/dL AST (14-35) U/L ALT (10-49) U/L Total Protein (6.2-8.2) g/dL Albumin (3.8-4.9) g/dL Assessment and Plan Plan: Assessment: 1. Acute kidney injury secondary to ATN secondary to COVID-19 infection and car diorenal syndrome. Renal function fairly stable. Creatinine 2.8 today. Elevated BUN secondary to acute kidney injury as well as steroids. No evidence of GI bleed. UA benign. Right kidney atrophic. Left kidney not seen. No evidence of hydronephrosis. 2. Chronic kidney disease stage IIIB with baseline creatinine the range of 1.5- 2 secondary to nephrosclerosis. 3. COVID-19 pneumonia as well as superimposed bacterial pneumonia. 4. Metabolic acidosis secondary to acute kidney injury. Resolved. 5. Mild hyperkalemia secondary to acute kidney injury and metabolic acidosis. Resolved. 6. Fluid overload. Improved with diuresis. Chest CT from yesterday showed bilateral pleural effusions. ?Thoracentesis. Plan: Maintain IV Lasix. Avoid nephrotoxins. Continue to monitor renal function and urine output. Hold midodrine for systolic blood pressure greater than 110.
[2021-08-13 11:47] LABS: Glucose,Whole Blood 226 mg/dL (75-99)
--- NOTE | 2021-08-13 13:31 | P.CONS ---
History of Present Illness - Reason for Consult Consult date: 08/13/21 Thrombocytopenia Requesting physician: Martin Faustin - History of Present Illness Patient has been admitted with COVID infection and we have been asked to evaluate for thrombocytopenia. Review of Systems All systems: negative Constitutional: Reports as per HPI Past Medical History Past Medical History: Coronary Artery Disease (CAD), Cancer, COPD, GERD/Reflux, Hearing Disorder / Deafness, Hyperlipidemia, Osteoarthritis (OA), Pneumonia, Prostate Disorder, Renal Disease, Sleep Apnea/CPAP/BIPAP, Thyroid Disorder Additional Past Medical History / Comment(s): GOUT; not currently using CPAP, see Dr Sanchez H&P, edema left lower leg, bruises easily, hx skin cancer Last Myocardial Infarction Date:: 2001 History of Any Multi-Drug Resistant Organisms: None Reported Past Surgical History: AICD, Coronary Bypass/CABG, Heart Catheterization With Stent, Hernia Repair, Orthopedic Surgery, Pacemaker Additional Past Surgical History / Comment(s): 4 Vessel CABG 2002. 2 STENTS 2001. HAS 2 PINS IN RT [place]. parathyroid surgery, AICD/PACEMAKER, [facility]. 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, recent biopsy left ear, maximus cataracts Past Anesthesia/Blood Transfusion Reactions: No Reported Reaction Date of Last Stent Placement:: UNK Type of Cardiac Device: Permanent Pacemaker, AICD Device Placement Date:: unknown Past Psychological History: No Psychological Hx Reported Past Alcohol Use History: None Reported Past Drug Use History: None Reported - Past Family History Father Family Medical History: Congestive Heart Failure (CHF), Diabetes Mellitus Additional Family Medical History / Comment(s): AT AGEG 66 FROM CHF Mother Family Medical History: COPD Additional Family Medical History / Comment(s): AT AGE FROM ANEURYSM Sister(s) Family Medical History: Cancer Medications and Allergies Home Medications Medication Instructions Recorded Confirmed Type Allopurinol [Zyloprim] 300 mg PO DAILY 07/22/21 07/22/21 History Amiodarone [Cordarone] 200 mg PO DAILY 07/22/21 07/22/21 History Apixaban [Eliquis] 2.5 mg PO BID 07/22/21 07/22/21 History Atorvastatin [Lipitor] 20 mg PO HS 07/22/21 07/22/21 History Cholecalciferol [Vitamin D3 (25 25 mcg PO DAILY 07/22/21 07/22/21 History Mcg = 1000 Iu)] Empagliflozin [Jardiance] 10 mg PO DAILY 07/22/21 07/22/21 History Finasteride [Proscar] 5 mg PO DAILY 07/22/21 07/22/21 History Furosemide [Lasix] 20 mg PO DAILY 07/22/21 07/22/21 History Ipratropium [place] [Atrovent Hfa] 2 puff INHALATION RT-DAILY 07/22/21 07/22/21 History Loratadine [Claritin] 10 mg PO DAILY 07/22/21 07/22/21 History Magnesium Oxide [Mag-Ox] 400 mg PO DAILY 07/22/21 07/22/21 History Metoprolol Succinate [Toprol XL] 25 mg PO DAILY 07/22/21 07/22/21 History Midodrine [ProAmatine] 5 mg PO TID 07/22/21 07/22/21 History Montelukast [Singulair] 10 mg PO DAILY 07/22/21 07/22/21 History Olopatadine HCl [Pataday] 1 drop BOTH EYES DAILY 07/22/21 07/22/21 History Omeprazole [PriLOSEC] 20 mg PO AC-BRKFST 07/22/21 07/22/21 History Tamsulosin [Flomax] 0.4 mg PO BID 07/22/21 07/22/21 History Allergies Allergy/AdvReac Type Severity Reaction Status Date / Time smoke Allergy Dyspnea Uncoded 07/22/21 13:49 Physical Exam Vitals: Vital Signs Temp Pulse Resp BP Pulse Ox 08/13/21 10:23 97.7 F 50 L 17 110/56 95 08/13/21 05:04 98.5 F 55 L 15 123/56 95 08/13/21 01:23 98.3 F 52 L 17 113/58 96 08/12/21 21:13 98.2 F 52 L 18 115/62 94 L 08/12/21 20:00 20 08/12/21 18:50 97.6 F 50 L 22 97/57 98 08/12/21 17:09 97.9 F 52 L 18 119/63 98 08/12/21 14:00 97.6 F 50 L 18 110/56 97 Intake and Output 08/12/21 08/13/21 08/13/21 22:59 06:59 14:59 Output Total 500 Balance -500 Output: Urine 500 Other: Voiding Method Urinal Diaper Incontinent # Voids 5 3 - Constitutional General appearance: cooperative, mild distress - EENT Eyes: poor dentition ENT: hard of hearing, NA/AT - Neck Neck: normal ROM - Respiratory Respiratory: bilateral: diminished - Cardiovascular Rhythm: regularly irregular - Gastrointestinal General gastrointestinal: soft - Integumentary Integumentary: pale - Neurologic Neurologic: CNII-XII intact - Musculoskeletal Musculoskeletal: generalized weakness - Psychiatric Psychiatric: A&O x's 3, appropriate affect, intact judgment & insight Results CBC & Chem 7: 08/13/21 06:44 08/13/21 06:44 Labs: Abnormal Lab Results - Last 24 Hours (Table) 08/12/21 08/12/21 08/13/21 Range/Units 16:34 20:10 06:44 RBC (4.40-5.60) X 10*6/uL Hgb (13.0-17.0) g/dL Hct (39.6-50.0) % RDW (11.5-14.5) % Plt Count (140-440) X 10*3/uL Plt Count Comment MPV (9.5-12.2) fL Lymphocytes # (0.90-5.00) X 10*3/uL Monocytes # (0.20-1.00) X 10*3/uL Eosinophils # (0.04-0.35) X 10*3/uL Immature Plt Fraction (1.1-6.1) % PT 12.9 H (9.0-12.0) sec INR 1.3 H (<1.2) Carbon Dioxide (20.0-27.5) mmol/L BUN (9.0-27.0) mg/dL Creatinine (0.6-1.5) mg/dL Est GFR (CKD-EPI)AfAm (60.0-200.0) Est GFR (CKD-EPI)NonAf (60.0-200.0) BUN/Creatinine Ratio (12.00-20.00) Ratio Glucose (70-110) mg/dL POC Glucose (mg/dL) 237 H 219 H (75-99) mg/dL Calcium (8.7-10.3) mg/dL AST (14-35) U/L ALT (10-49) U/L Total Protein (6.2-8.2) g/dL Albumin (3.8-4.9) g/dL 08/13/21 08/13/21 08/13/21 Range/Units 06:44 06:44 07:19 RBC 3.11 L (4.40-5.60) X 10*6/uL Hgb 9.5 L (13.0-17.0) g/dL Hct 29.7 L (39.6-50.0) % RDW 16.2 H (11.5-14.5) % Plt Count 39 L (140-440) X 10*3/uL Plt Count Comment A MPV 12.4 H (9.5-12.2) fL Lymphocytes # 0.30 L (0.90-5.00) X 10*3/uL Monocytes # 0.09 L (0.20-1.00) X 10*3/uL Eosinophils # 0 L (0.04-0.35) X 10*3/uL Immature Plt Fraction 6.6 H (1.1-6.1) % PT (9.0-12.0) sec INR (<1.2) Carbon Dioxide 27.6 H (20.0-27.5) mmol/L BUN 123.0 H* (9.0-27.0) mg/dL Creatinine 2.8 H (0.6-1.5) mg/dL Est GFR (CKD-EPI)AfAm 22.3 L (60.0-200.0) Est GFR (CKD-EPI)NonAf 19.3 L (60.0-200.0) BUN/Creatinine Ratio 43.93 H (12.00-20.00) Ratio Glucose 155 H (70-110) mg/dL POC Glucose (mg/dL) 237 H (75-99) mg/dL Calcium 7.7 L (8.7-10.3) mg/dL AST 53 H (14-35) U/L ALT 69 H (10-49) U/L Total Protein 4.5 L (6.2-8.2) g/dL Albumin 2.8 L (3.8-4.9) g/dL 08/13/21 Range/Units 11:45 RBC (4.40-5.60) X 10*6/uL Hgb (13.0-17.0) g/dL Hct (39.6-50.0) % RDW (11.5-14.5) % Plt Count (140-440) X 10*3/uL Plt Count Comment MPV (9.5-12.2) fL Lymphocytes # (0.90-5.00) X 10*3/uL Monocytes # (0.20-1.00) X 10*3/uL Eosinophils # (0.04-0.35) X 10*3/uL Immature Plt Fraction (1.1-6.1) % PT (9.0-12.0) sec INR (<1.2) Carbon Dioxide (20.0-27.5) mmol/L BUN (9.0-27.0) mg/dL Creatinine (0.6-1.5) mg/dL Est GFR (CKD-EPI)AfAm (60.0-200.0) Est GFR (CKD-EPI)NonAf (60.0-200.0) BUN/Creatinine Ratio (12.00-20.00) Ratio Glucose (70-110) mg/dL POC Glucose (mg/dL) 226 H (75-99) mg/dL Calcium (8.7-10.3) mg/dL AST (14-35) U/L ALT (10-49) U/L Total Protein (6.2-8.2) g/dL Albumin (3.8-4.9) g/dL Assessment and Plan (1) Thrombocytopenia Current Visit: Yes Status: Acute Code(s): D69.6 - THROMBOCYTOPENIA, UNSPECIFIED SNOMED Code(s): 430535192 Plan: Assessment and Recommendations: Normocytic Anemia and thrombocytopenia: - Full work-up ordered - Heparin Antibodies (less likely but appears to have received) - DIC work-up - Transfuse platelets less than 10K musa if signs of bleeding IR would like platelet count 50K or more to proceed with thoracentesis, if this is required would just recommend thoracentesis during transfusion Ordered and discussed with nursing to coordinate Physcian Attest: I have completed the full history and physical and agree with above dictation, dictated as a scribe.
[2021-08-13 16:52] LABS: Glucose,Whole Blood 278 mg/dL (75-99)
[2021-08-13] MEDS: MONTELUKAST 10 MG TAB PO SCH (20:28)
[2021-08-13] MEDS: AMIODARONE 200 MG TAB PO SCH (20:28)
[2021-08-13] MEDS: CHOLECALCIFEROL 25 MCG (1000 IU) TABLET PO SCH (20:28)
[2021-08-13] MEDS: ATORVASTATIN 20 MG TAB PO SCH (20:28)
[2021-08-13] MEDS: METOPROLOL SUCCINATE (ER) 25 MG TAB.ER.24H PO SCH (20:29)
[2021-08-13 20:59] LABS: Glucose,Whole Blood 282 mg/dL (75-99)
[2021-08-13 21:44] LABS: Protein, Total 5.1 g/dL (6.2-8.2)
--- NOTE | 2021-08-13 22:34 | PN ---
PROGRESS NOTE DATE OF SERVICE: 08/13/2021 REASON FOR FOLLOWUP: Pneumonia. INTERVAL HISTORY: The patient is afebrile. The patient seems to be breathing more comfortably. The patient denies having any chest pain. He did have a cough, not bringing up any sputum. No abdominal pain or diarrhea. PHYSICAL EXAMINATION: Blood pressure 123/60 with a pulse of 51, temperature 98.5. He is 98% on 5 L nasal cannula. General description is an elderly male up in the chair in no distress. Respiratory system: Unlabored breathing. Coarse breath sounds bilaterally. No wheeze. Heart S1, S2. Regular rate and rhythm. Abdomen soft, no tenderness. LABS: D-dimer is 1.11. DIAGNOSTIC IMPRESSION AND PLAN: Patient with pneumonia with acute respiratory failure. Patient is currently covered with Zosyn empirically. That will be continued while waiting for his condition to stabilized, and monitor his clinical course closely. Continue supportive care. MMODL / IJN: [id number] /
[2021-08-14] MEDS: PIPERACILLIN-TAZOBACTAM 3.375 GM in SODIUM CHLORIDE 0.9% 100 ML IVPB SCH (05:25)
[2021-08-14] MEDS: methylPREDNISolone SOD SUCCI 40 MG/ML 1 ML VIAL IV SCH ×3 (05:26→17:05)
[2021-08-14 07:22] LABS: Glucose,Whole Blood 200 mg/dL (75-99)
[2021-08-14 07:30] LABS: Anisocytosis Slight; Basophils % (A) 0 %; Eosinophils % (A) 0 %; HCT 32.6 % (39.0-53.0); HGB 10.5 gm/dL (13.0-17.5); Lymphocytes # (A) 0.2 k/uL (1.0-4.8); Lymphocytes % (A) 4 %; MCHC 32.3 g/dL (31.0-37.0); MCV 98.9 fL (80.0-100.0); Macrocytosis Slight; Mean Platelet Volume 9.8; Monocytes # (A) 0.1 k/uL (0-1.0); Monocytes % (A) 2 %; Neutrophils # (A) 4.7 k/uL (1.3-7.7); Neutrophils % (A) 94 %; RBC 3.29 m/uL (4.30-5.90); RDW 16.1 % (11.5-15.5); WBC 5.1 k/uL (3.8-10.6)
[2021-08-14 07:40] LABS: Platelet Count 37 k/uL (150-450)
[2021-08-14 08:16] LABS: % Iron Saturation 43.6 (15.00-50.00); Folate, Serum 12.3 ng/mL (4.40-31.00)
[2021-08-14] MEDS: FUROSEMIDE 10 MG/ML 4 ML VIAL IV SCH ×2 (09:11→20:26)
[2021-08-14] MEDS: PANTOPRAZOLE 40 MG TABLET PO SCH (09:11)
[2021-08-14] MEDS: TAMSULOSIN 0.4 MG CAP.ER.24H PO SCH (09:11)
[2021-08-14] MEDS: FINASTERIDE 5 MG TAB PO SCH (09:13)
[2021-08-14] MEDS: ZINC SULFATE 220 MG CAP PO SCH (09:13)
[2021-08-14] MEDS: INSULIN ASPART (NovoLOG) 100 UNIT/ML VIAL SQ SCH ×4 (09:13→20:45)
[2021-08-14] MEDS: ASCORBIC ACID 500 MG TAB PO SCH (09:13)
[2021-08-14] MEDS: BENZONATATE 100 MG CAP PO SCH ×3 (09:13→20:27)
[2021-08-14] MEDS: guaiFENesin 600 MG TABLET.ER PO SCH ×2 (09:13→20:28)
[2021-08-14] MEDS: allopurinoL 300 MG TAB PO SCH (09:13)
[2021-08-14] MEDS: MIDODRINE 5 MG TAB PO SCH ×3 (09:13→17:05)
[2021-08-14] MEDS: BARICITINIB 1 MG TABLET PO SCH (09:14)
[2021-08-14] MEDS: CHOLESTYRAMINE (WITH SUGAR) 4 GM PACKET PO SCH ×2 (09:14→17:06)
[2021-08-14] MEDS: KETOTIFEN 0.025% OPHTH DROPS 5 ML BTL BOTH EYES SCH ×2 (09:15→20:28)
[2021-08-14] MEDS: ALBUTEROL HFA INHALER INHALATION PRN ×3 (09:32→17:15)
--- NOTE | 2021-08-14 10:20 | P.PN ---
Subjective Patient is seen in follow-up for acute kidney injury on chronic kidney disease. Renal function fairly stable as of yesterday. Hemodynamically stable. On 5 L high flow cannula. Nonoliguric. On IV Lasix. Oral intake fair. No vomiting or diarrhea. Vital signs are stable. General: On nasal cannula. HEENT: Head exam is unremarkable. LUNGS: Breath sounds decreased. HEART: Rate and Rhythm are regular. ABDOMEN: Soft, no distention. EXTREMITITES: 1+ edema. Objective - Vital Signs Vital signs: Vital Signs Temp 97.6 F 08/14/21 02:00 Pulse 50 L 08/14/21 06:00 Resp 19 08/14/21 06:00 BP 118/63 08/14/21 06:00 Pulse Ox 95 08/14/21 06:00 Intake & Output 08/13/21 08/14/21 08/14/21 18:59 06:59 18:59 Intake Total 200 Output Total 200 201 Balance -200 -1 Intake: Oral 200 Output: Urine 200 200 Stool 1 Other: Voiding Method Urinal Urinal Diaper Diaper Incontinent # Voids 4 - Labs CBC & Chem 7: 08/14/21 06:52 08/13/21 06:44 Labs: Abnormal Lab Results - Last 24 Hours (Table) 08/13/21 08/13/21 08/13/21 Range/Units 06:04 06:44 06:44 RBC 3.11 L (4.40-5.60) X 10*6/uL Hgb 9.5 L (13.0-17.0) g/dL Hct 29.7 L (39.6-50.0) % RDW 16.2 H (11.5-14.5) % Plt Count 39 L (140-440) X 10*3/uL Plt Count Comment A MPV 12.4 H (9.5-12.2) fL Lymphocytes # 0.30 L (0.90-5.00) X 10*3/uL Monocytes # 0.09 L (0.20-1.00) X 10*3/uL Eosinophils # 0 L (0.04-0.35) X 10*3/uL Immature Plt Fraction 6.6 H (1.1-6.1) % Fibrinogen (200-500) mg/dL D-Dimer (<0.60) mg/L FEU Carbon Dioxide 27.6 H (20.0-27.5) mmol/L BUN 123.0 H* (9.0-27.0) mg/dL Creatinine 2.8 H (0.6-1.5) mg/dL Est GFR (CKD-EPI)AfAm 22.3 L (60.0-200.0) Est GFR (CKD-EPI)NonAf 19.3 L (60.0-200.0) BUN/Creatinine Ratio 43.93 H (12.00-20.00) Ratio Glucose 155 H (70-110) mg/dL POC Glucose (mg/dL) (75-99) mg/dL Calcium 7.7 L (8.7-10.3) mg/dL Transferrin 172.0 L (204.0-354.0) mg/dL Ferritin 665.0 H (22.0-322.0) ng/mL AST 53 H (14-35) U/L ALT 69 H (10-49) U/L Total Protein 4.5 L (6.2-8.2) g/dL Total Protein (PEP) (6.2-8.2) g/dL Albumin 2.8 L (3.8-4.9) g/dL 08/13/21 08/13/21 08/13/21 Range/Units 11:45 12:38 12:38 RBC (4.40-5.60) X 10*6/uL Hgb (13.0-17.0) g/dL Hct (39.6-50.0) % RDW (11.5-14.5) % Plt Count (140-440) X 10*3/uL Plt Count Comment MPV (9.5-12.2) fL Lymphocytes # (0.90-5.00) X 10*3/uL Monocytes # (0.20-1.00) X 10*3/uL Eosinophils # (0.04-0.35) X 10*3/uL Immature Plt Fraction (1.1-6.1) % Fibrinogen 161 L (200-500) mg/dL D-Dimer 1.11 H (<0.60) mg/L FEU Carbon Dioxide (20.0-27.5) mmol/L BUN (9.0-27.0) mg/dL Creatinine (0.6-1.5) mg/dL Est GFR (CKD-EPI)AfAm (60.0-200.0) Est GFR (CKD-EPI)NonAf (60.0-200.0) BUN/Creatinine Ratio (12.00-20.00) Ratio Glucose (70-110) mg/dL POC Glucose (mg/dL) 226 H (75-99) mg/dL Calcium (8.7-10.3) mg/dL Transferrin (204.0-354.0) mg/dL Ferritin (22.0-322.0) ng/mL AST (14-35) U/L ALT (10-49) U/L Total Protein (6.2-8.2) g/dL Total Protein (PEP) 5.1 L (6.2-8.2) g/dL Albumin (3.8-4.9) g/dL 08/13/21 08/13/21 08/14/21 Range/Units 16:51 20:58 06:52 RBC 3.29 L (4.40-5.60) X 10*6/uL Hgb 10.5 L (13.0-17.0) g/dL Hct 32.6 L (39.6-50.0) % RDW 16.1 H (11.5-14.5) % Plt Count 37 L (140-440) X 10*3/uL Plt Count Comment MPV (9.5-12.2) fL Lymphocytes # 0.2 L (0.90-5.00) X 10*3/uL Monocytes # (0.20-1.00) X 10*3/uL Eosinophils # (0.04-0.35) X 10*3/uL Immature Plt Fraction (1.1-6.1) % Fibrinogen (200-500) mg/dL D-Dimer (<0.60) mg/L FEU Carbon Dioxide (20.0-27.5) mmol/L BUN (9.0-27.0) mg/dL Creatinine (0.6-1.5) mg/dL Est GFR (CKD-EPI)AfAm (60.0-200.0) Est GFR (CKD-EPI)NonAf (60.0-200.0) BUN/Creatinine Ratio (12.00-20.00) Ratio Glucose (70-110) mg/dL POC Glucose (mg/dL) 278 H 282 H (75-99) mg/dL Calcium (8.7-10.3) mg/dL Transferrin (204.0-354.0) mg/dL Ferritin (22.0-322.0) ng/mL AST (14-35) U/L ALT (10-49) U/L Total Protein (6.2-8.2) g/dL Total Protein (PEP) (6.2-8.2) g/dL Albumin (3.8-4.9) g/dL 08/14/21 Range/Units 07:20 RBC (4.40-5.60) X 10*6/uL Hgb (13.0-17.0) g/dL Hct (39.6-50.0) % RDW (11.5-14.5) % Plt Count (140-440) X 10*3/uL Plt Count Comment MPV (9.5-12.2) fL Lymphocytes # (0.90-5.00) X 10*3/uL Monocytes # (0.20-1.00) X 10*3/uL Eosinophils # (0.04-0.35) X 10*3/uL Immature Plt Fraction (1.1-6.1) % Fibrinogen (200-500) mg/dL D-Dimer (<0.60) mg/L FEU Carbon Dioxide (20.0-27.5) mmol/L BUN (9.0-27.0) mg/dL Creatinine (0.6-1.5) mg/dL Est GFR (CKD-EPI)AfAm (60.0-200.0) Est GFR (CKD-EPI)NonAf (60.0-200.0) BUN/Creatinine Ratio (12.00-20.00) Ratio Glucose (70-110) mg/dL POC Glucose (mg/dL) 200 H (75-99) mg/dL Calcium (8.7-10.3) mg/dL Transferrin (204.0-354.0) mg/dL Ferritin (22.0-322.0) ng/mL AST (14-35) U/L ALT (10-49) U/L Total Protein (6.2-8.2) g/dL Total Protein (PEP) (6.2-8.2) g/dL Albumin (3.8-4.9) g/dL Assessment and Plan Plan: Assessment: 1. Acute kidney injury secondary to ATN secondary to COVID-19 infection and cardiorenal syndrome. Renal function fairly stable. Creatinine 2.8 yesterday. Elevated BUN secondary to acute kidney injury as well as steroids. No evidence of GI bleed. UA benign. Right kidney atrophic. Left kidney not seen. No evidence of hydronephrosis. 2. Chronic kidney disease stage IIIB with baseline creatinine the range of 1.5- 2 secondary to nephrosclerosis. 3. COVID-19 pneumonia as well as superimposed bacterial pneumonia. 4. Metabolic acidosis secondary to acute kidney injury. Resolved. 5. Mild hyperkalemia secondary to acute kidney injury and metabolic acidosis. Resolved. 6. Fluid overload. Improved with diuresis. Chest CT from yesterday showed bilateral pleural effusions. ?Thoracentesis - held due to thrombocytopenia. Plan: Maintain IV Lasix. Avoid nephrotoxins. Continue to monitor renal function and urine output. Hold midodrine for systolic blood pressure greater than 110. Morning labs pending.
[2021-08-14 12:00] LABS: Immunoglobulin M 66.5 mg/dL (40.0-280.0)
--- NOTE | 2021-08-14 12:42 | US ---
Ultrasound-guided therapeutic and diagnostic thoracentesis DATE OF EXAM: 08/14/2021 CLINICAL HISTORY: History request for right thoracentesis The procedure was discussed with the patient. The risks, complications, benefits, and alternatives we re discussed and any questions were answered. Informed consent was obtained. The patient was placed supine on the ultrasound table and prepped and draped in the usual sterile fas hion. All elements of maximal barrier and sterile technique were utilized. The original consultation received 08/13/2021. Apparently, original ultrasound was marked for the pulm onologist to perform the procedure. Library Sales Consultant consulted radiology to do the thoracentesis. The pl atelet count was 39 and below standard of care for safe thoracentesis. The Department of radiology ar ranged for platelets to be given to the patient and the procedure attempted. However, upon repeat elliot ging There is interval reduction in size of bilateral pleural effusions with only small residual pleu ral effusion. Additionally, the residual lung tissue was close to or opposed to the chest wall. Ca se was discussed with Dr. Salazar. Given the reduction in size and only small residual pleural effusion the procedure was deferred. IMPRESSION: 1. Discontinue thoracentesis due to interval significant reduction in pleural fluid and lack of safe access route for percutaneous drainage.
[2021-08-14 12:46] LABS: Magnesium 2.2 mg/dL (1.5-2.4)
[2021-08-14 13:04] LABS: Glucose,Whole Blood 172 mg/dL (75-99)
[2021-08-14 13:17] LABS: African American GFR (CKD) 22.6 (60.0-200.0); Albumin 2.9 g/dL (3.8-4.9); Albumin/Globulin Ratio 1.7 (1.60-3.17); Anion Gap 16.2 mmol/L (10.00-18.00); BUN/Creat Ratio 45.85 Ratio (12.00-20.00); Calcium 7.8 mg/dL (8.7-10.3); Carbon Dioxide 26.1 mmol/L (20.0-27.5); Globulin 1.7 g/dL (1.6-3.3); Non-African American GFR(CKD) 19.5 (60.0-200.0); Potassium 4.3 mmol/L (3.5-5.5); Total Bilirubin 0.7 mg/dL (0.30-1.20); Total Protein 4.6 g/dL (6.2-8.2)
--- NOTE | 2021-08-14 13:38 | P.PN ---
Subjective Progress Note Date: 08/14/21 Principal diagnosis: Acute on chronic hypoxic respiratory failure Pneumonia Blood stained sputum secondary pneumonia Generalized weakness Fall related to weakness COVID-19 infection GERD BPH Dyslipidemia Coronary artery disease with history of CABG and stent placement 08/14/2021, patient seen and evaluated examined awake and alert breathing comfortably on 5 L oxygen, thoracentesis canceled by interventional radiology as the amount of fluid have been reduced will continue supportive care, BUN continued to climb up is 127 creatinine is 2.8, platelet count is 37,000 stable hemoglobin 08/13/2021, patient seen eval examined during the rounds labs reviewed medications reviewed, patient has progressive thrombocytopenia, IR refuse to do thoracentesis which is on hold, Dr. Shaw from hematology has been consulted, labs not done today, patient oxygen demand continued to improve currently on 5 L nasal cannula, denies any chest pain ongoing shortness of breath especially on exertion however is present dry nonproductive cough is present, patient on the direct oral anticoagulant which is currently on hold, IV steroids and antibiotics broad spectrum along with BARICITINAB tolerating well 08/12/2021, patient seen eval examined during the rounds labs reviewed medications reviewed care plan discussed, respiratory status the much better today FiO2 decreased to 7 L rhonchi or 13 L now, patient feeling less short of breath sitting upright, patient underwent ultrasound of the chest slight increase in right-sided pleural effusion seen patient remains on IV Lasix not responding, we will consult interventional radiology for right-sided thoracentesis 08/11/2021, patient seen eval examined during the rounds labs reviewed medications reviewed care plan discussed, respiratory status slightly better FiO2 decreased down from 15 needed to 13 L breathing more comfortably, have early looked on ultrasound of the chest bilateral, small to moderate pleural effusion bilaterally is present, we'll continue to hold on the direct anticoagulant, we will hold thoracentesis repeat ultrasound of the chest in the morning, current for pneumonia as well as COVID-19 infection appears to be working O follow closely 08/10/2021, patient seen eval reexamined during the rounds labs reviewed medications reviewed care plan discussed with the patient, as well as the the RN at length, patient continued to be acutely hypoxic FiO2 have been increased to 15 L high flow oxygen, renal functions remains on the poor side without any significant change, bilateral pleural effusion were seen on radiographic study patient underwent ultrasound of the chest which I reviewed it the hard copy the re is a bilateral pleural effusion small to moderate bilaterally is present but however fluid is more accessible on the right side on the left side it's in the form of somewhat in close pocket, patient is on anticoagulation with liquids will hold it lunch to right-sided thoracentesis tomorrow Concern about hypoxia and desaturation acute worsening in the last 72 hours, discussed with the RN as well as the pharmacy, patient will benefit from Baricitinib discussed with pharmacy about prerequisite, labs ordered for d- dimer, C-reactive protein, LDH 08/09/2021, examined during the rounds labs reviewed medications reviewed care plan discussed, respiratory status still marginal patient oxygen requirement is now 9 L now which have been significantly worse, patient underwent computed tomography scan of the chest finding reviewed, mild to moderate bilateral pleural effusion is seen, cardiomegaly, 4.6 cm ascending aorta, finding consistent with congestive heart failure however cold with associated disease process cannot be excluded, would recommend repeat the Covid testing before initiation and therapeutic trial Baricitinib 08/08/2021, patient relatively more short of breath than baseline, oxygen requirement has increased though, creatinine, patient remains afebrile, oxygen requirement now is 9 L, patient is being planned for computed tomography scan of the chest, chest x-ray positive for edema as well as bilateral infiltrate 08/06/2021, patient seen and evaluated examined, respiratory status remained stable, oxygen saturation on 3 L nasal cannula is 91% for pressure is 119/56 patient remains afebrile, tolerating bronchodilator as well, remains on low-dose diuretic anticoagulant, patient is off of antibiotics, on diuretics, Hexadrol milligrams daily 08/05/2021, patient seen eval examined during the rounds labs reviewed medications reviewed care plan discussed, patient remains 2-3 L oxygen, currently on 3 L with the saturation 92%, Ms. afebrile, 08/04/2021, patient seen eval examined during the rounds labs reviewed medications reviewed sitting upright in chair breathing comfortably, remains on 3 L oxygen, intermittent cough is present mostly is dry now, meds reviewed, remains on bronchodilator, direct oral anticoagulant, oral Decadron, off of antibiotics now him a BUN/creatinine is 103/2.52, sugars 232, last covid testing was performed on the of this month we'll repeat as symptoms significantly improved, and we'll help placement 08/01/2021, patient seen and evaluated examined during the rounds labs reviewed medications reviewed care plan discussed with the staff and patient at length, hemodynamic status stable however blood pressure slightly high, just received his medications from this morning, intermittent cough is present sputum is mucoid thick, patient currently on 2 L oxygen, independently has been going back and forth in room air oxygen, patient has been switched to oral Augmentin by primary service, remains on direct oral anticoagulant, patient lives by himself at home, extremely weak and requires support to stand currently in the process of being evaluated for placement ECF for short-term rehab 07/31/2021, patient seen eval examined during the rounds labs reviewed medications reviewed care plan discussed, respiratory status continued to be stable, patient now is on room air breathing comfortably, feet, does have cough sputum is light yellow 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, PERRL no hemoptysis has been seen, patient is off of IV steroids for now on Decadron for COVID-19 pneumonia inflammation, she remains on broad-spectrum antibiotics with Zosyn for bilateral basal pneumonia which clinically has been improving, but however still needs it, 07/30/2021, patient seen eval examined during the rounds labs reviewed medications reviewed care plan discussed, respiratory status remains stable intermittently patient has been on room air as well, cough is associated with sputum which is light in color and appearance no more hemoptysis seen, today's labs are reviewed white cell count is 7000 hemoglobin and hematocrit 12 and 39, platelets are 1 46,000, potassium is 5.3 showing a downward trend BUN/creatinine elevated but remains stable 82/2.51, patient back on Hexadrol off of IV steroids 07/29/2021, patient seen eval examined during the rounds labs reviewed medications reviewed, is still short of breath on activity and exertion cough is associated with sputum but slight and now no more hemoptysis is seen, BUN/creatinine is up to 83/2.47, CBC stable, oxygen saturation 97% on 2 L nasal cannula hemodynamic status stable, he remains on IV steroids breathing treatments antibiotics and steroids appeared to be responding well also has COVID-19 infection 07/28/2021, patient seen eval reexamined during the rounds labs reviewed medications reviewed still have ongoing cough on however 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 is 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, no more hemoptysis seen, Sputum culture no pathologic organism have been seen, patient remains afebrile, with oxygen saturation of 91-92% room air, uterus chest x-ray shows slight improvement in bilateral basal infiltrate, labs reviewed today white cell count within normal limit potassium is 5.7 BUN/creatinine is 77 and 2.4, 07/25/2021, patient seen eval examined during the rounds labs reviewed medications reviewed, patient has intermittent cough and he is producing clear to yellow sputum mixed with intermittent stye streaks of blood, more short of breath on 2 L oxygen, discussed with infectious disease services will start patient on IV steroids antibiotics send sputum for Gram stain and culture 07/24/2021, patient seen eval examined during the rounds overall no significant change in saturation 95% on room air, patient remains on oral steroids Decadron 6 mg daily, tolerating well today's x-ray reviewed some streak-like infiltrate at the bases cannot be excluded or perihilar infiltrate 07/23/2021, patient seen eval examined in follow-up, respiratory status not much change, chest x-ray reviewed possible interstitial pattern cannot be excluded, patient remains on room air as saturation 94% with stable hemodynamics, blood pressure is the 110/60, patient remains on bronchodilator continuation of home medications including liquids along with daily 6 mg of Decadron, patient has been restarted on her midodrine Patient is a 89-year-old male came into the hospital with generalized weakness and fall related to weakness, patient sees Dr. Yadav for primary care activities, cagle denies any night sweats fever or chills denies any chest pain or radiation of pain, no fever no bowel or bladder related problem, patient does have cough with sputum production his labs were significant for a hemoglobin of 12.6, platelet count of 10 7000, BUN/creatinine 56/2.27, glucose is 210, troponin 0.055 0.0 6 AM 0.047, oxygen saturation is 90% to 95% room air improved to, "test came back positive, chest x-ray and rib x-ray stable pacemaker and wires no infiltrate or heart failure identified no pneumothorax, currently patient is treated with bronchodilators continuation of home medications including amiodarone and requests primary History is significant for coronary artery disease, COPD, GERD, deafness, dyslipidemia, degenerative joint disease osteoarthritis history of pneumonia and sleep apnea Past surgical history significant for a bypass surgery, cardiac cath and stent placement and hernia repair orthopedic repair history of pacemaker insertion, stents no history of smoking through abuse and substance use Objective - Vital Signs Vital signs: Vital Signs Temp 97.8 F 08/14/21 13:23 Pulse 55 L 08/14/21 13:23 Resp 15 08/14/21 13:23 BP 127/51 08/14/21 13:23 Pulse Ox 95 08/14/21 13:23 Intake & Output 08/13/21 08/14/21 08/14/21 18:59 06:59 18:59 Intake Total 200 344 Output Total 200 201 Balance -200 -1 344 Intake: Oral 200 Blood Product 344 Platelet Pheresis Pas 344 Psoralen Unit [id number] Output: Urine 200 200 Stool 1 Other: Voiding Method Urinal Urinal Diaper Diaper Incontinent # Voids 4 - Exam - Exam - Constitutional General appearance: average body habitus, cooperative - EENT Eyes: PERRLA Ears: bilateral: normal - Neck Carotids: bilateral: upstroke normal Thyroid: bilateral: normal size - Respiratory Respiratory: bilateral: CTA - Cardiovascular Rhythm: regular Heart sounds: normal: S1, S2 - Gastrointestinal General gastrointestinal: soft - Neurologic Neurologic: CNII-XII intact - Musculoskeletal Musculoskeletal: gait normal, generalized weakness, strength equal bilaterally - Psychiatric Psychiatric: A&O x's 3, appropriate affect, intact judgment & insight - Labs CBC & Chem 7: 08/14/21 06:52 08/14/21 06:52 Labs: Abnormal Lab Results - Last 24 Hours (Table) 08/13/21 08/13/21 08/13/21 Range/Units 06:04 06:04 12:38 RBC (4.30-5.90) m/uL Hgb (13.0-17.5) gm/dL Hct (39.0-53.0) % RDW (11.5-15.5) % Plt Count (150-450) k/uL Lymphocytes # (1.0-4.8) k/uL Fibrinogen 161 L (200-500) mg/dL D-Dimer 1.11 H (<0.60) mg/L FEU BUN (9.0-27.0) mg/dL Creatinine (0.6-1.5) mg/dL Est GFR (CKD-EPI)AfAm (60.0-200.0) Est GFR (CKD-EPI)NonAf (60.0-200.0) BUN/Creatinine Ratio (12.00-20.00) Ratio Glucose (70-110) mg/dL POC Glucose (mg/dL) (75-99) mg/dL Calcium (8.7-10.3) mg/dL Transferrin 172.0 L (204.0-354.0) mg/dL Ferritin 665.0 H (22.0-322.0) ng/mL AST (14-35) U/L ALT (10-49) U/L Total Protein (6.2-8.2) g/dL Total Protein (PEP) (6.2-8.2) g/dL Albumin (3.8-4.9) g/dL IgG 644.0 L (700.0-1600.0) mg/dL 08/13/21 08/13/21 08/13/21 Range/Units 12:38 16:51 20:58 RBC (4.30-5.90) m/uL Hgb (13.0-17.5) gm/dL Hct (39.0-53.0) % RDW (11.5-15.5) % Plt Count (150-450) k/uL Lymphocytes # (1.0-4.8) k/uL Fibrinogen (200-500) mg/dL D-Dimer (<0.60) mg/L FEU BUN (9.0-27.0) mg/dL Creatinine (0.6-1.5) mg/dL Est GFR (CKD-EPI)AfAm (60.0-200.0) Est GFR (CKD-EPI)NonAf (60.0-200.0) BUN/Creatinine Ratio (12.00-20.00) Ratio Glucose (70-110) mg/dL POC Glucose (mg/dL) 278 H 282 H (75-99) mg/dL Calcium (8.7-10.3) mg/dL Transferrin (204.0-354.0) mg/dL Ferritin (22.0-322.0) ng/mL AST (14-35) U/L ALT (10-49) U/L Total Protein (6.2-8.2) g/dL Total Protein (PEP) 5.1 L (6.2-8.2) g/dL Albumin (3.8-4.9) g/dL IgG (700.0-1600.0) mg/dL 08/14/21 08/14/21 08/14/21 Range/Units 06:52 06:52 07:20 RBC 3.29 L (4.30-5.90) m/uL Hgb 10.5 L (13.0-17.5) gm/dL Hct 32.6 L (39.0-53.0) % RDW 16.1 H (11.5-15.5) % Plt Count 37 L (150-450) k/uL Lymphocytes # 0.2 L (1.0-4.8) k/uL Fibrinogen (200-500) mg/dL D-Dimer (<0.60) mg/L FEU BUN 127.0 H* (9.0-27.0) mg/dL Creatinine 2.8 H (0.6-1.5) mg/dL Est GFR (CKD-EPI)AfAm 22.6 L (60.0-200.0) Est GFR (CKD-EPI)NonAf 19.5 L (60.0-200.0) BUN/Creatinine Ratio 45.85 H (12.00-20.00) Ratio Glucose 170 H (70-110) mg/dL POC Glucose (mg/dL) 200 H (75-99) mg/dL Calcium 7.8 L (8.7-10.3) mg/dL Transferrin (204.0-354.0) mg/dL Ferritin (22.0-322.0) ng/mL AST 54 H (14-35) U/L ALT 72 H (10-49) U/L Total Protein 4.6 L (6.2-8.2) g/dL Total Protein (PEP) (6.2-8.2) g/dL Albumin 2.9 L (3.8-4.9) g/dL IgG (700.0-1600.0) mg/dL 08/14/21 Range/Units 13:03 RBC (4.30-5.90) m/uL Hgb (13.0-17.5) gm/dL Hct (39.0-53.0) % RDW (11.5-15.5) % Plt Count (150-450) k/uL Lymphocytes # (1.0-4.8) k/uL Fibrinogen (200-500) mg/dL D-Dimer (<0.60) mg/L FEU BUN (9.0-27.0) mg/dL Creatinine (0.6-1.5) mg/dL Est GFR (CKD-EPI)AfAm (60.0-200.0) Est GFR (CKD-EPI)NonAf (60.0-200.0) BUN/Creatinine Ratio (12.00-20.00) Ratio Glucose (70-110) mg/dL POC Glucose (mg/dL) 172 H (75-99) mg/dL Calcium (8.7-10.3) mg/dL Transferrin (204.0-354.0) mg/dL Ferritin (22.0-322.0) ng/mL AST (14-35) U/L ALT (10-49) U/L Total Protein (6.2-8.2) g/dL Total Protein (PEP) (6.2-8.2) g/dL Albumin (3.8-4.9) g/dL IgG (700.0-1600.0) mg/dL Assessment and Plan Assessment: Thrombocytopenia Acute hypoxic history failure with increased oxygen requirement likely due to worsening inflammation treated response due to COVID-19 pneumonia, slowly improving now Bilateral mild pleural effusion interventional radiology felt not safe and small in amount we'll continue to monitor and observe Acute on chronic kidney disease Generalized weakness Fall related to weakness Acute on chronic kidney injury COVID-19 infection Intermittent hemoptysis, improving and resolved GERD BPH Dyslipidemia Coronary artery disease with history of CABG and stent placement Plan: Dr. Shaw have been consulted, awaiting further recommendation, labs ordered for today Continue Baricitinib, patient appears to be responding well We will consult interventional radiology for Right-sided thoracentesis effusion continued to increase despite of aggressive diuresis Ultrasound of the chest, CT chest and Chest x-ray reviewed since several fluid overload bilateral pleural effusion however correlate related issues cannot be excluded would recommend to repeat forward testing Repeat Joseph Computed tomography scan of the chest reviewed Continue bronchodilators Reviewed results of sputum for Gram stain and culture Continue deep breathing sense incentive spirometry PT OT evaluation ECF/rehab evaluation for placement Renal functions remain elevated but stable Long-term prognosis poor Time with Patient: Greater than 30
[2021-08-14 14:11] LABS: Heparin Induced Plt Abs 0.135 OD (<0.4)
[2021-08-14 14:20] LABS: Free Kappa Lt Chain Qnt, Serum 4.51 mg/dL (0.33-1.94)
[2021-08-14 14:33] LABS: Albumin 2.99 g/dL (3.80-4.90); Gamma Globulin 0.63 g/dL (0.70-1.50)
[2021-08-14 16:57] LABS: Glucose,Whole Blood 211 mg/dL (75-99)
[2021-08-14] MEDS: APIXABAN 2.5 MG TABLET PO SCH (20:27)
[2021-08-14] MEDS: MONTELUKAST 10 MG TAB PO SCH (20:27)
[2021-08-14] MEDS: METOPROLOL SUCCINATE (ER) 25 MG TAB.ER.24H PO SCH (20:27)
[2021-08-14] MEDS: CHOLECALCIFEROL 25 MCG (1000 IU) TABLET PO SCH (20:28)
[2021-08-14] MEDS: AMIODARONE 200 MG TAB PO SCH (20:28)
[2021-08-14] MEDS: ATORVASTATIN 20 MG TAB PO SCH (20:28)
[2021-08-14 20:37] LABS: Glucose,Whole Blood 206 mg/dL (75-99)
[2021-08-15] MEDS: methylPREDNISolone SOD SUCCI 40 MG/ML 1 ML VIAL IV SCH ×5 (00:28→23:23)
--- NOTE | 2021-08-15 01:25 | PN ---
PROGRESS NOTE DATE OF SERVICE: 08/14/2021 REASON FOR FOLLOWUP: Pneumonia. INTERVAL HISTORY: The patient is afebrile. The patient did have attempted thoracocentesis. However, the patient's fluid has significant decreased, hence, was done not done. The patient denies having and chest pain. No worsening cough or sputum production. No abdominal pain, no diarrhea. PHYSICAL EXAMINATION: Blood pressure 135/64, pulse of 88, temperature 97.7. He is 98% on 5 L nasal cannula. General description is an elderly male up in the bed in no distress. Respiratory system: Unlabored breathing, decreased intensity of breath sounds. No wheeze. Heart S1, S2. Regular rate and rhythm. Abdomen soft, no tenderness. LABS: Hemoglobin is 10.5, white count 5.1, creatinine is 2.8. Sputum negative. DIAGNOSTIC IMPRESSION AND PLAN: Patient with shortness of breath ( ) which is multifactorial in this patient, possibly fluid overload and the patient fluid has decreased. The patient is empirically covered with Zosyn. May continue while monitoring clinical course closely. Continue supportive care. MMODL / IJN: [id number] /
--- NOTE | 2021-08-15 05:19 | PN ---
PROGRESS NOTE 89-year-old white male with recent Covid pneumonia remains on Solu-Medrol through the IV. His Lasix was decreased secondary to renal insufficiency. He was supposed to get a pleural thoracentesis of the right side of his lungs today, but apparently was not done for the third straight day. He is down to 5 L oxygen. Thoracentesis was canceled by Interventional Radiology. BUN of 127, creatinine 2.8, platelet count 37,000, stable hemoglobin. As mentioned his Lasix was stopped due to elevated BUN. He is up in chair breathing decent on 5 L oxygen. Cardiovascular S1, S2. Lungs scattered rhonchi and wheeze. Hematology: Negative Homans. Psych: Fair mood and affect. Oxygen levels 95 on 5 L. Temperature 97.8, pulse 50s to 60s, respiratory 16 to 18, blood pressure 120s over 50s. IgG level 644 which is low. Low transferrin levels. D-dimer is 1.11. Ferritin is high at 666. The patient is improving. Thoracentesis was withheld. Remains on Solu-Medrol, broad- spectrum antibiotics, thrombocytopenia, we will have to watch for possible steroid or platelet transfusion if it drops down. Slowly improving. ASSESSMENT: 1. Oxygen requirement secondary to Covid 19 with pleural effusions. 2. Acute on chronic kidney disease. 3. Generalized weakness. 4. Covid 19. 5. Intermittent hemoptysis. PLAN: Continue baricitinib. Dr. Shaw consulted. Continue Cortef. Gram stain, sputum production, fluid overload, possibly repeat possible thoracentesis if he gets worse. Prognosis guarded. MMODL / IJN: [id number] /
[2021-08-15 07:23] LABS: Glucose,Whole Blood 158 mg/dL (75-99)
[2021-08-15 08:22] LABS: Methylmalonic Acid 0.89 umol/L (<0.40)
[2021-08-15] MEDS: FINASTERIDE 5 MG TAB PO SCH (08:27)
[2021-08-15] MEDS: INSULIN ASPART (NovoLOG) 100 UNIT/ML VIAL SQ SCH ×4 (08:27→21:05)
[2021-08-15] MEDS: ASCORBIC ACID 500 MG TAB PO SCH (08:27)
[2021-08-15] MEDS: PANTOPRAZOLE 40 MG TABLET PO SCH (08:28)
[2021-08-15] MEDS: FUROSEMIDE 10 MG/ML 4 ML VIAL IV SCH ×2 (08:28→21:04)
[2021-08-15] MEDS: BARICITINIB 1 MG TABLET PO SCH (08:28)
[2021-08-15] MEDS: allopurinoL 300 MG TAB PO SCH (08:28)
[2021-08-15] MEDS: ZINC SULFATE 220 MG CAP PO SCH (08:28)
[2021-08-15] MEDS: guaiFENesin 600 MG TABLET.ER PO SCH ×2 (08:28→21:04)
[2021-08-15] MEDS: MIDODRINE 5 MG TAB PO SCH ×3 (08:28→17:58)
[2021-08-15] MEDS: APIXABAN 2.5 MG TABLET PO SCH ×2 (08:28→21:04)
[2021-08-15] MEDS: TAMSULOSIN 0.4 MG CAP.ER.24H PO SCH (08:28)
[2021-08-15] MEDS: BENZONATATE 100 MG CAP PO SCH ×3 (08:28→21:04)
[2021-08-15] MEDS: CHOLESTYRAMINE (WITH SUGAR) 4 GM PACKET PO SCH ×2 (08:29→17:58)
[2021-08-15] MEDS: KETOTIFEN 0.025% OPHTH DROPS 5 ML BTL BOTH EYES SCH ×2 (08:29→21:05)
[2021-08-15] MEDS: ALBUTEROL HFA INHALER INHALATION PRN ×2 (09:35→15:54)
--- NOTE | 2021-08-15 10:02 | P.PN ---
Subjective Patient is seen in follow-up for acute kidney injury on chronic kidney disease. Renal function fairly stable as of yesterday. Hemodynamically stable. On 5 L high flow cannula. Incontinent. On IV Lasix. Oral intake fair. No vomiting or diarrhea. Vital signs are stable. General: On nasal cannula. HEENT: Head exam is unremarkable. LUNGS: Breath sounds decreased. HEART: Rate and Rhythm are regular. ABDOMEN: Soft, no distention. EXTREMITITES: 1+ edema. Lower extremities wrapped. Objective - Vital Signs Vital signs: Vital Signs Temp 97.8 F 08/15/21 06:00 Pulse 50 L 08/15/21 06:00 Resp 17 08/15/21 06:00 BP 119/54 08/15/21 06:00 Pulse Ox 99 08/15/21 06:00 Intake & Output 08/14/21 08/15/21 08/15/21 18:59 06:59 18:59 Intake Total 344 350 Balance 344 350 Intake: Oral 350 Blood Product 344 Platelet Pheresis Pas 344 Psoralen Unit [id number] Other: Voiding Method Urinal Urinal Diaper Diaper # Voids 3 - Labs CBC & Chem 7: 08/14/21 06:52 08/14/21 06:52 Labs: Abnormal Lab Results - Last 24 Hours (Table) 08/13/21 08/13/21 08/13/21 Range/Units 06:04 12:38 12:38 BUN (9.0-27.0) mg/dL Creatinine (0.6-1.5) mg/dL Est GFR (CKD-EPI)AfAm (60.0-200.0) Est GFR (CKD-EPI)NonAf (60.0-200.0) BUN/Creatinine Ratio (12.00-20.00) Ratio Glucose (70-110) mg/dL POC Glucose (mg/dL) (75-99) mg/dL Calcium (8.7-10.3) mg/dL AST (14-35) U/L ALT (10-49) U/L Total Protein (6.2-8.2) g/dL Albumin (3.8-4.9) g/dL Albumin (PEP) 2.99 L (3.80-4.90) g/dL Beta Globulins 0.59 L (0.60-1.30) g/dL Gamma Globulins 0.63 L (0.70-1.50) g/dL Methylmalonic Acid 0.89 H (<0.40) umol/L IgG 644.0 L (700.0-1600.0) mg/dL Free [place] LC, Quant 4.51 H (0.33-1.94) mg/dL Free Lambda LC, Quant 3.32 H (0.57-2.63) mg/dL 08/14/21 08/14/21 08/14/21 Range/Units 06:52 13:03 16:56 BUN 127.0 H* (9.0-27.0) mg/dL Creatinine 2.8 H (0.6-1.5) mg/dL Est GFR (CKD-EPI)AfAm 22.6 L (60.0-200.0) Est GFR (CKD-EPI)NonAf 19.5 L (60.0-200.0) BUN/Creatinine Ratio 45.85 H (12.00-20.00) Ratio Glucose 170 H (70-110) mg/dL POC Glucose (mg/dL) 172 H 211 H (75-99) mg/dL Calcium 7.8 L (8.7-10.3) mg/dL AST 54 H (14-35) U/L ALT 72 H (10-49) U/L Total Protein 4.6 L (6.2-8.2) g/dL Albumin 2.9 L (3.8-4.9) g/dL Albumin (PEP) (3.80-4.90) g/dL Beta Globulins (0.60-1.30) g/dL Gamma Globulins (0.70-1.50) g/dL Methylmalonic Acid (<0.40) umol/L IgG (700.0-1600.0) mg/dL Free [place] LC, Quant (0.33-1.94) mg/dL Free Lambda LC, Quant (0.57-2.63) mg/dL 08/14/21 08/15/21 Range/Units 20:36 07:21 BUN (9.0-27.0) mg/dL Creatinine (0.6-1.5) mg/dL Est GFR (CKD-EPI)AfAm (60.0-200.0) Est GFR (CKD-EPI)NonAf (60.0-200.0) BUN/Creatinine Ratio (12.00-20.00) Ratio Glucose (70-110) mg/dL POC Glucose (mg/dL) 206 H 158 H (75-99) mg/dL Calcium (8.7-10.3) mg/dL AST (14-35) U/L ALT (10-49) U/L Total Protein (6.2-8.2) g/dL Albumin (3.8-4.9) g/dL Albumin (PEP) (3.80-4.90) g/dL Beta Globulins (0.60-1.30) g/dL Gamma Globulins (0.70-1.50) g/dL Methylmalonic Acid (<0.40) umol/L IgG (700.0-1600.0) mg/dL Free [place] LC, Quant (0.33-1.94) mg/dL Free Lambda LC, Quant (0.57-2.63) mg/dL Assessment and Plan Plan: Assessment: 1. Acute kidney injury secondary to ATN secondary to COVID-19 infection and cardiorenal syndrome. Renal function fairly stable. Creatinine 2.8 yesterday. Elevated BUN secondary to acute kidney injury as well as steroids. No evidence of GI bleed. UA benign. Right kidney atrophic. Left kidney not seen. No evidence of hydronephrosis. 2. Chronic kidney disease stage IIIB with baseline creatinine the range of 1.5- 2 secondary to nephrosclerosis. 3. COVID-19 pneumonia as well as superimposed bacterial pneumonia. 4. Metabolic acidosis secondary to acute kidney injury. Resolved. 5. Mild hyperkalemia secondary to acute kidney injury and metabolic acidosis. Resolved. 6. Fluid overload. Improved with diuresis. Chest CT from yesterday showed bilateral pleural effusions. Thoracentesis not done due to reduction of effusions. Plan: Maintain IV Lasix. Avoid nephrotoxins. Continue to monitor renal function and urine output. Hold midodrine for systolic blood pressure greater than 110. Morning labs pending.
[2021-08-15 12:01] LABS: Glucose,Whole Blood 235 mg/dL (75-99)
[2021-08-15 12:29] LABS: Magnesium 2.2 mg/dL (1.5-2.4)
[2021-08-15 12:41] LABS: Basophils # (A) 0 X 10*3/uL (0.00-0.10); Basophils % (A) 0 %; Eosinophils # (A) 0 X 10*3/uL (0.04-0.35); Eosinophils % (A) 0 %; HCT 28.7 % (39.6-50.0); HGB 8.9 g/dL (13.0-17.0); Lymphocytes # (A) 0.18 X 10*3/uL (0.90-5.00); Lymphocytes % (A) 4.4 %; MCH 29.9 pg (27.0-32.0); MCV 96.3 fL (80.0-97.0); Mean Platelet Volume 11.1 fL (9.5-12.2); Monocytes # (A) 0.08 X 10*3/uL (0.20-1.00); Neutrophils % (A) 92.9 %; Platelet Count 33 X 10*3/uL (140-440); RBC 2.98 X 10*6/uL (4.40-5.60); RDW 16.5 % (11.5-14.5); WBC 4.09 X 10*3/uL (4.50-10.00)
[2021-08-15 12:45] LABS: African American GFR (CKD) 21.2 (60.0-200.0); Anion Gap 15.1 mmol/L (10.00-18.00); BUN/Creat Ratio 43.84 Ratio (12.00-20.00); Calcium 7.7 mg/dL (8.7-10.3); Carbon Dioxide 26.9 mmol/L (20.0-27.5); Non-African American GFR(CKD) 18.3 (60.0-200.0); Potassium 4.3 mmol/L (3.5-5.5)
--- NOTE | 2021-08-15 14:48 | P.PN ---
Subjective Progress Note Date: 08/15/21 Patient still has persistent cough and shortness of breath. He appears to be fairly stable on about 5 L of oxygen. Fever or chills. Not any obvious bleeding. Objective - Vital Signs Vital signs: Vital Signs Temp 98.0 F 08/15/21 10:00 Pulse 54 L 08/15/21 10:00 Resp 20 08/15/21 10:00 BP 101/49 08/15/21 10:00 Pulse Ox 98 08/15/21 10:00 Intake & Output 08/14/21 08/15/21 08/15/21 18:59 06:59 18:59 Intake Total 344 350 Balance 344 350 Intake: Oral 350 Blood Product 344 Platelet Pheresis Pas 344 Psoralen Unit [id number] Other: Voiding Method Urinal Urinal Urinal Diaper Diaper Diaper # Voids 3 2 # Bowel Movements 1 - Constitutional General appearance: Present: no acute distress - EENT Eyes: Present: EOMI, PERRLA ENT: Present: hearing grossly normal, normal oropharynx - Respiratory Respiratory: bilateral: diminished, wheezing - Cardiovascular Rhythm: irregularly irregular - Gastrointestinal General gastrointestinal: Present: normal bowel sounds, soft - Integumentary Integumentary: Present: normal - Neurologic Neurologic: Present: CNII-XII intact - Musculoskeletal Musculoskeletal: Present: generalized weakness - Labs CBC & Chem 7: 08/15/21 07:01 08/15/21 07:01 Labs: Abnormal Lab Results - Last 24 Hours (Table) 08/13/21 08/14/21 08/14/21 Range/Units 12:38 16:56 20:36 WBC (4.50-10.00) X 10*3/uL RBC (4.40-5.60) X 10*6/uL Hgb (13.0-17.0) g/dL Hct (39.6-50.0) % MCHC (32.0-37.0) g/dL RDW (11.5-14.5) % Plt Count (140-440) X 10*3/uL Plt Count Comment Lymphocytes # (0.90-5.00) X 10*3/uL Monocytes # (0.20-1.00) X 10*3/uL Eosinophils # (0.04-0.35) X 10*3/uL Immature Plt Fraction (1.1-6.1) % BUN (9.0-27.0) mg/dL Creatinine (0.6-1.5) mg/dL Est GFR (CKD-EPI)AfAm (60.0-200.0) Est GFR (CKD-EPI)NonAf (60.0-200.0) BUN/Creatinine Ratio (12.00-20.00) Ratio Glucose (70-110) mg/dL POC Glucose (mg/dL) 211 H 206 H (75-99) mg/dL Calcium (8.7-10.3) mg/dL Methylmalonic Acid 0.89 H (<0.40) umol/L 08/15/21 08/15/21 08/15/21 Range/Units 07:01 07:01 07:21 WBC 4.09 L (4.50-10.00) X 10*3/uL RBC 2.98 L (4.40-5.60) X 10*6/uL Hgb 8.9 L (13.0-17.0) g/dL Hct 28.7 L (39.6-50.0) % MCHC 31.0 L (32.0-37.0) g/dL RDW 16.5 H (11.5-14.5) % Plt Count 33 L (140-440) X 10*3/uL Plt Count Comment A Lymphocytes # 0.18 L (0.90-5.00) X 10*3/uL Monocytes # 0.08 L (0.20-1.00) X 10*3/uL Eosinophils # 0 L (0.04-0.35) X 10*3/uL Immature Plt Fraction 6.9 H (1.1-6.1) % BUN 128.0 H* (9.0-27.0) mg/dL Creatinine 2.9 H (0.6-1.5) mg/dL Est GFR (CKD-EPI)AfAm 21.2 L (60.0-200.0) Est GFR (CKD-EPI)NonAf 18.3 L (60.0-200.0) BUN/Creatinine Ratio 43.84 H (12.00-20.00) Ratio Glucose 148 H (70-110) mg/dL POC Glucose (mg/dL) 158 H (75-99) mg/dL Calcium 7.7 L (8.7-10.3) mg/dL Methylmalonic Acid (<0.40) umol/L 08/15/21 Range/Units 11:59 WBC (4.50-10.00) X 10*3/uL RBC (4.40-5.60) X 10*6/uL Hgb (13.0-17.0) g/dL Hct (39.6-50.0) % MCHC (32.0-37.0) g/dL RDW (11.5-14.5) % Plt Count (140-440) X 10*3/uL Plt Count Comment Lymphocytes # (0.90-5.00) X 10*3/uL Monocytes # (0.20-1.00) X 10*3/uL Eosinophils # (0.04-0.35) X 10*3/uL Immature Plt Fraction (1.1-6.1) % BUN (9.0-27.0) mg/dL Creatinine (0.6-1.5) mg/dL Est GFR (CKD-EPI)AfAm (60.0-200.0) Est GFR (CKD-EPI)NonAf (60.0-200.0) BUN/Creatinine Ratio (12.00-20.00) Ratio Glucose (70-110) mg/dL POC Glucose (mg/dL) 235 H (75-99) mg/dL Calcium (8.7-10.3) mg/dL Methylmalonic Acid (<0.40) umol/L Assessment and Plan (1) Thrombocytopenia Narrative/Plan: This is felt to be most likely due to marrow suppression/consumption from COVID pneumonia. Some affect due to antibiotics is also possible. Heparin induced cytopenia is very unlikely, as the patient already had lower than normal platelets on admission, and received heparin very briefly. He had not had any prior exposure to heparin recently with no hospitalizations at least over the past 2 years. - H IT antibody was ordered and is pending though, as noted, HIT is felt to be highly unlikely. - Labs for other causes of thrombocytopenia are negative so far - The case was discussed in detail with pulmonary medicine. It was recommended that his anti coagulation be placed on hold as platelets have been less than 50,000. It was recommended that the patient could receive platelet transfusions for thoracentesis, if felt to be needed by them and IR. However thoracentesis was subsequently put on hold as fluid was noted to be decreasing. - At this time the expectation is that the platelet counts will improve spontaneously once the patient's acute condition improves and he is able to get off antibiotics Current Visit: Yes Status: Acute Code(s): D69.6 - THROMBOCYTOPENIA, UNSPECIFIED SNOMED Code(s): 008836260 (2) Pneumonia due to COVID-19 virus Narrative/Plan: Defer to the admitting service and pulmonary medicine for continued management Current Visit: Yes Status: Acute Code(s): U07.1 - COVID-19; J12.82 - PNEUMONIA DUE TO CORONAVIRUS DISEASE 2019 SNOMED Code(s): 019812134262399223
[2021-08-15 16:59] LABS: Glucose,Whole Blood 293 mg/dL (75-99)
[2021-08-15 20:14] LABS: Glucose,Whole Blood 349 mg/dL (75-99)
[2021-08-15] MEDS: AMIODARONE 200 MG TAB PO SCH (21:03)
[2021-08-15] MEDS: METOPROLOL SUCCINATE (ER) 25 MG TAB.ER.24H PO SCH (21:03)
[2021-08-15] MEDS: ATORVASTATIN 20 MG TAB PO SCH (21:04)
[2021-08-15] MEDS: MONTELUKAST 10 MG TAB PO SCH (21:04)
[2021-08-15] MEDS: CHOLECALCIFEROL 25 MCG (1000 IU) TABLET PO SCH (21:04)
--- NOTE | 2021-08-15 23:56 | PN ---
PROGRESS NOTE 89-year-old white male Covid 19 pneumonia, secondary bacterial pneumonia, renal insufficiency, CHF, COPD remains on 5 L oxygen, sitting up in a chair. Blood pressure is low tonight for which we held some of his medicine back. He is saturating 91 in 8 L. Temperature 97.7. Pulse is around 50s. Lungs shows congested upper airway signs. Cardiovascular S1-S2. Hematology negative Homans. Persistent shortness of breath. ASSESSMENT: 1. Covid 19 pneumonia secondary to bacterial pneumonia. 2. Thrombocytopenia. 3. Bone marrow suppression due to Covid pneumonia. 4. Anticoagulation has been placed on hold. His platelets have been less than 50,000. Possible transfusion for thoracentesis is put on hold. Continue current treatment for Covid 19 pneumonia. PROGNOSIS: Extremely guarded. MMODL / IJN: [id number] /
[2021-08-16] MEDS: methylPREDNISolone SOD SUCCI 40 MG/ML 1 ML VIAL IV SCH ×4 (05:36→23:23)
[2021-08-16 06:57] LABS: Glucose,Whole Blood 140 mg/dL (75-99)
[2021-08-16] MEDS: ALBUTEROL HFA INHALER INHALATION PRN ×3 (07:42→15:01)
[2021-08-16] MEDS: INSULIN ASPART (NovoLOG) 100 UNIT/ML VIAL SQ SCH ×4 (08:00→20:53)
--- NOTE | 2021-08-16 09:09 | P.PN ---
Subjective Progress Note Date: 08/16/21 Principal diagnosis: This is a 89-year-old male seen in consultation with acute kidney injury secondary to call with pneumonia, also has chronic kidney disease. Currently on nasal cannula oxygen Shortness of breath is better continues to cough some mild abdominal discomfort. No nausea vomiting diarrhea appetite is fair. Urine output is not well documented Vital signs are stable. Objective - Vital Signs Vital signs: Vital Signs Temp 97.8 F 08/16/21 05:27 Pulse 52 L 08/16/21 05:27 Resp 16 08/16/21 05:27 BP 124/65 08/16/21 05:27 Pulse Ox 97 08/16/21 05:27 Intake & Output 08/15/21 08/16/21 08/16/21 18:59 06:59 18:59 Intake Total 300 Balance 300 Intake: Oral 300 Other: Voiding Method Urinal Urinal Diaper Diaper # Voids 3 4 # Bowel Movements 1 1 On examination is awake alert oriented but generalized weakness HEENT exam no JVP. Neck is supple no facial asymmetry Lungs are significant for bilateral coarse crackles with fairly good air entry bilaterally Heart sounds unremarkable for any murmur rub gallop Abdomen soft nontender bowel sounds are present Extremity exam was trace edema Neurologically awake alert oriented - Labs CBC & Chem 7: 08/15/21 07:01 08/15/21 07:01 Labs: Abnormal Lab Results - Last 24 Hours (Table) 08/15/21 08/15/21 08/15/21 Range/Units 07:01 07:01 11:59 WBC 4.09 L (4.50-10.00) X 10*3/uL RBC 2.98 L (4.40-5.60) X 10*6/uL Hgb 8.9 L (13.0-17.0) g/dL Hct 28.7 L (39.6-50.0) % MCHC 31.0 L (32.0-37.0) g/dL RDW 16.5 H (11.5-14.5) % Plt Count 33 L (140-440) X 10*3/uL Plt Count Comment A Lymphocytes # 0.18 L (0.90-5.00) X 10*3/uL Monocytes # 0.08 L (0.20-1.00) X 10*3/uL Eosinophils # 0 L (0.04-0.35) X 10*3/uL Immature Plt Fraction 6.9 H (1.1-6.1) % BUN 128.0 H* (9.0-27.0) mg/dL Creatinine 2.9 H (0.6-1.5) mg/dL Est GFR (CKD-EPI)AfAm 21.2 L (60.0-200.0) Est GFR (CKD-EPI)NonAf 18.3 L (60.0-200.0) BUN/Creatinine Ratio 43.84 H (12.00-20.00) Ratio Glucose 148 H (70-110) mg/dL POC Glucose (mg/dL) 235 H (75-99) mg/dL Calcium 7.7 L (8.7-10.3) mg/dL 08/15/21 08/15/21 08/16/21 Range/Units 16:58 20:12 06:55 WBC (4.50-10.00) X 10*3/uL RBC (4.40-5.60) X 10*6/uL Hgb (13.0-17.0) g/dL Hct (39.6-50.0) % MCHC (32.0-37.0) g/dL RDW (11.5-14.5) % Plt Count (140-440) X 10*3/uL Plt Count Comment Lymphocytes # (0.90-5.00) X 10*3/uL Monocytes # (0.20-1.00) X 10*3/uL Eosinophils # (0.04-0.35) X 10*3/uL Immature Plt Fraction (1.1-6.1) % BUN (9.0-27.0) mg/dL Creatinine (0.6-1.5) mg/dL Est GFR (CKD-EPI)AfAm (60.0-200.0) Est GFR (CKD-EPI)NonAf (60.0-200.0) BUN/Creatinine Ratio (12.00-20.00) Ratio Glucose (70-110) mg/dL POC Glucose (mg/dL) 293 H 349 H 140 H (75-99) mg/dL Calcium (8.7-10.3) mg/dL Assessment and Plan Assessment: Impression 1. Acute kidney injury secondary to Covid pneumonia. Element of cardiorenal syndrome is also thought to be likely. Disproportionate increase in BUN secondary to steroids 2. Chronic kidney disease stage III creatinine ranging 1.5 mg to 2 mg, secondary to nephrosclerosis and possibly atrophied right kidney possibility of renovascular disease 3. Admitted with call with pneumonia and bacterial pneumonia stable 4. Anemia hemoglobin is 8.9, adequate iron saturation 5. Low platelet count 33,000 secondary to Covid and sepsis Recommendation 1. Hold Lasix, 2. Repeat chest x-ray to ensure there is no congestive heart failure 3. Monitor hemoglobin, electrolytes. Labs pending today
[2021-08-16] MEDS: guaiFENesin 600 MG TABLET.ER PO SCH ×2 (10:28→20:56)
[2021-08-16] MEDS: APIXABAN 2.5 MG TABLET PO SCH ×2 (10:28→20:56)
[2021-08-16] MEDS: TAMSULOSIN 0.4 MG CAP.ER.24H PO SCH (10:28)
[2021-08-16] MEDS: ACETAMINOPHEN TAB 325 MG TAB PO PRN (10:28)
[2021-08-16] MEDS: ZINC SULFATE 220 MG CAP PO SCH (10:29)
[2021-08-16] MEDS: allopurinoL 300 MG TAB PO SCH (10:29)
[2021-08-16] MEDS: BENZONATATE 100 MG CAP PO SCH ×3 (10:29→21:54)
[2021-08-16] MEDS: MIDODRINE 5 MG TAB PO SCH ×3 (10:29→17:46)
[2021-08-16] MEDS: ASCORBIC ACID 500 MG TAB PO SCH (10:29)
[2021-08-16] MEDS: CHOLESTYRAMINE (WITH SUGAR) 4 GM PACKET PO SCH ×2 (10:29→17:47)
[2021-08-16] MEDS: FUROSEMIDE 10 MG/ML 4 ML VIAL IV SCH (10:29)
[2021-08-16] MEDS: BARICITINIB 1 MG TABLET PO SCH (10:29)
[2021-08-16] MEDS: FINASTERIDE 5 MG TAB PO SCH (10:29)
[2021-08-16] MEDS: PANTOPRAZOLE 40 MG TABLET PO SCH (10:29)
--- NOTE | 2021-08-16 10:31 | P.PN ---
Subjective Progress Note Date: 08/15/21 Principal diagnosis: Acute on chronic hypoxic respiratory failure Pneumonia Blood stained sputum secondary pneumonia Generalized weakness Fall related to weakness COVID-19 infection GERD BPH Dyslipidemia Coronary artery disease with history of CABG and stent placement 08/15/2021, respiratory rate remained stable, awake and alert breathing comfortably, denies any chest pain shortness of breath remains stable, oxygen is down to 5 L, labs from today reviewed BUN is 128 creatinine of 2.9 remains stable, platelet count is 33,000 also however is stable, 08/14/2021, patient seen and evaluated examined awake and alert breathing comfortably on 5 L oxygen, thoracentesis canceled by interventional radiology as the amount of fluid have been reduced will continue supportive care, BUN continued to climb up is 127 creatinine is 2.8, platelet count is 37,000 stable hemoglobin 08/13/2021, patient seen eval examined during the rounds labs reviewed medications reviewed, patient has progressive thrombocytopenia, IR refuse to do thoracentesis which is on hold, Dr. Shaw from hematology has been consulted, labs not done today, patient oxygen demand continued to improve currently on 5 L nasal cannula, denies any chest pain ongoing shortness of breath especially on exertion however is present dry nonproductive cough is present, patient on the direct oral anticoagulant which is currently on hold, IV steroids and antibiotics broad spectrum along with BARICITINAB tolerating well 08/12/2021, patient seen eval examined during the rounds labs reviewed medications reviewed care plan discussed, respiratory status the much better today FiO2 decreased to 7 L rhonchi or 13 L now, patient feeling less short of breath sitting upright, patient underwent ultrasound of the chest slight increase in right-sided pleural effusion seen patient remains on IV Lasix not responding, we will consult interventional radiology for right-sided thoracentesis 08/11/2021, patient seen eval examined during the rounds labs reviewed medications reviewed care plan discussed, respiratory status slightly better FiO2 decreased down from 15 needed to 13 L breathing more comfortably, have early looked on ultrasound of the chest bilateral, small to moderate pleural effusion bilaterally is present, we'll continue to hold on the direct anticoagulant, we will hold thoracentesis repeat ultrasound of the chest in the morning, current for pneumonia as well as COVID-19 infection appears to be working O follow closely 08/10/2021, patient seen eval reexamined during the rounds labs reviewed medications reviewed care plan discussed with the patient, as well as the the RN at length, patient continued to be acutely hypoxic FiO2 have been increased to 15 L high flow oxygen, renal functions remains on the poor side without any significant change, bilateral pleural effusion were seen on radiographic study patient underwent ultrasound of the chest which I reviewed it the hard copy there is a bilateral pleural effusion small to moderate bilaterally is present but however fluid is more accessible on the right side on the left side it's in the form of somewhat in close pocket, patient is on anticoagulation with liquids will hold it lunch to right-sided thoracentesis tomorrow Concern about hypoxia and desaturation acute worsening in the last 72 hours, discussed with the RN as well as the pharmacy, patient will benefit from Baricitinib discussed with pharmacy about prerequisite, labs ordered for d- dimer, C-reactive protein, LDH 08/09/2021, examined during the rounds labs reviewed medications reviewed care plan discussed, respiratory status still marginal patient oxygen requirement is now 9 L now which have been significantly worse, patient underwent computed tomography scan of the chest finding reviewed, mild to moderate bilateral pleural effusion is seen, cardiomegaly, 4.6 cm ascending aorta, finding consistent with congestive heart failure however cold with associated disease process cannot be excluded, would recommend repeat the Covid testing before initiation and therapeutic trial Baricitinib 08/08/2021, patient relatively more short of breath than baseline, oxygen requirement has increased though, creatinine, patient remains afebrile, oxygen requirement now is 9 L, patient is being planned for computed tomography scan of the chest, chest x-ray positive for edema as well as bilateral infiltrate 08/06/2021, patient seen and evaluated examined, respiratory status remained stable, oxygen saturation on 3 L nasal cannula is 91% for pressure is 119/56 patient remains afebrile, tolerating bronchodilator as well, remains on low-dose diuretic anticoagulant, patient is off of antibiotics, on diuretics, Hexadrol milligrams daily 08/05/2021, patient seen eval examined during the rounds labs reviewed medications reviewed care plan discussed, patient remains 2-3 L oxygen, currently on 3 L with the saturation 92%, Ms. afebrile, 08/04/2021, patient seen eval examined during the rounds labs reviewed medications reviewed sitting upright in chair breathing comfortably, remains on 3 L oxygen, intermittent cough is present mostly is dry now, meds reviewed, remains on bronchodilator, direct oral anticoagulant, oral Decadron, off of antibiotics now him a BUN/creatinine is 103/2.52, sugars 232, last covid testing was performed on the of this month we'll repeat as symptoms significantly improved, and we'll help placement 08/01/2021, patient seen and evaluated examined during the rounds labs reviewed medications reviewed care plan discussed with the staff and patient at length, hemodynamic status stable however blood pressure slightly high, just received his medications from this morning, intermittent cough is present sputum is mucoid thick, patient currently on 2 L oxygen, independently has been going back and forth in room air oxygen, patient has been switched to oral Augmentin by primary service, remains on direct oral anticoagulant, patient lives by himself at home, extremely weak and requires support to stand currently in the process of being evaluated for placement ECF for short-term rehab 07/31/2021, patient seen eval examined during the rounds labs reviewed medications reviewed care plan discussed, respiratory status continued to be stable, patient now is on room air breathing comfortably, feet, does have cough sputum is light yellow 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, PERRL no hemoptysis has been seen, patient is off of IV steroids for now on Decadron for COVID-19 pneumonia inflammation, she remains on broad-spectrum antibiotics with Zosyn for bilateral basal pneumonia which clinically has been improving, but however still needs it, 07/30/2021, patient seen eval examined during the rounds labs reviewed medications reviewed care plan discussed, respiratory status remains stable intermittently patient has been on room air as well, cough is associated with sputum which is light in color and appearance no more hemoptysis seen, today's labs are reviewed white cell count is 7000 hemoglobin and hematocrit 12 and 39, platelets are 1 46,000, potassium is 5.3 showing a downward trend BUN/creatinine elevated but remains stable 82/2.51, patient back on Hexadrol off of IV steroids 07/29/2021, patient seen eval examined during the rounds labs reviewed medications reviewed, is still short of breath on activity and exertion cough is associated with sputum but slight and now no more hemoptysis is seen, BUN/creatinine is up to 83/2.47, CBC stable, oxygen saturation 97% on 2 L nasal cannula hemodynamic status stable, he remains on IV steroids breathing treatments antibiotics and steroids appeared to be responding well also has COVID-19 infection 07/28/2021, patient seen eval reexamined during the rounds labs reviewed medications reviewed still have ongoing cough on however 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, no more hemoptysis seen, Sputum culture no pathologic organism have been seen, patient remains afebrile, with oxygen saturation of 91-92% room air, uterus chest x-ray shows slight improvement in bilateral basal infiltrate, labs reviewed today white cell count within normal limit potassium is 5.7 BUN/creatinine is 77 and 2.4, 07/25/2021, patient seen eval examined during the rounds labs reviewed medications reviewed, patient has intermittent cough and he is producing clear to yellow sputum mixed with intermittent stye streaks of blood, more short of breath on 2 L oxygen, discussed with infectious disease services will start patient on IV steroids antibiotics send sputum for Gram stain and culture 07/24/2021, patient seen eval examined during the rounds overall no significant change in saturation 95% on room air, patient remains on oral steroids Decadron 6 mg daily, tolerating well today's x-ray reviewed some streak-like infiltrate at the bases cannot be excluded or perihilar infiltrate 07/23/2021, patient seen eval examined in follow-up, respiratory status not much change, chest x-ray reviewed possible interstitial pattern cannot be excluded, patient remains on room air as saturation 94% with stable hemodynamics, blood pressure is the 110/60, patient remains on bronchodilator continuation of home medications including liquids along with daily 6 mg of Decadron, patient has been restarted on her midodrine Patient is a 89-year-old male came into the hospital with generalized weakness and fall related to weakness, patient sees Dr. Yadav for primary care activities, cagle denies any night sweats fever or chills denies any chest pain or radiation of pain, no fever no bowel or bladder related problem, patient does have cough with sputum production his labs were significant for a hemoglobin of 12.6, platelet count of 10 7000, BUN/creatinine 56/2.27, glucose is 210, troponin 0.055 0.0 6 AM 0.047, oxygen saturation is 90% to 95% room air improved to, "test came back positive, chest x-ray and rib x-ray stable pacemaker and wires no infiltrate or heart failure identified no pneumothorax, currently patient is treated with bronchodilators continuation of home medications including amiodarone and requests primary History is significant for coronary artery disease, COPD, GERD, deafness, dyslipidemia, degenerative joint disease osteoarthritis history of pneumonia and sleep apnea Past surgical history significant for a bypass surgery, cardiac cath and stent placement and hernia repair orthopedic repair history of pacemaker insertion, stents no history of smoking through abuse and substance use Objective - Vital Signs Vital signs: Vital Signs Temp 98.0 F 08/15/21 10:00 Pulse 54 L 08/15/21 10:00 Resp 20 08/15/21 10:00 BP 101/49 08/15/21 10:00 Pulse Ox 98 08/15/21 10:00 Intake & Output 08/14/21 08/15/21 08/15/21 18:59 06:59 18:59 Intake Total 344 350 Balance 344 350 Intake: Oral 350 Blood Product 344 Platelet Pheresis Pas 344 Psoralen Unit [id number] Other: Voiding Method Urinal Urinal Diaper Diaper # Voids 3 - Exam - Exam - Constitutional General appearance: average body habitus, cooperative - EENT Eyes: PERRLA Ears: bilateral: normal - Neck Carotids: bilateral: upstroke normal Thyroid: bilateral: normal size - Respiratory Respiratory: bilateral: CTA - Cardiovascular Rhythm: regular Heart sounds: normal: S1, S2 - Gastrointestinal General gastrointestinal: soft - Neurologic Neurologic: CNII-XII intact - Musculoskeletal Musculoskeletal: gait normal, generalized weakness, strength equal bilaterally - Psychiatric Psychiatric: A&O x's 3, appropriate affect, intact judgment & insight - Labs CBC & Chem 7: 08/15/21 07:01 08/15/21 07:01 Labs: Abnormal Lab Results - Last 24 Hours (Table) 08/13/21 08/13/21 08/14/21 Range/Units 12:38 12:38 06:52 BUN 127.0 H* (9.0-27.0) mg/dL Creatinine 2.8 H (0.6-1.5) mg/dL Est GFR (CKD-EPI)AfAm 22.6 L (60.0-200.0) Est GFR (CKD-EPI)NonAf 19.5 L (60.0-200.0) BUN/Creatinine Ratio 45.85 H (12.00-20.00) Ratio Glucose 170 H (70-110) mg/dL POC Glucose (mg/dL) (75-99) mg/dL Calcium 7.8 L (8.7-10.3) mg/dL AST 54 H (14-35) U/L ALT 72 H (10-49) U/L Total Protein 4.6 L (6.2-8.2) g/dL Albumin 2.9 L (3.8-4.9) g/dL Albumin (PEP) 2.99 L (3.80-4.90) g/dL Beta Globulins 0.59 L (0.60-1.30) g/dL Gamma Globulins 0.63 L (0.70-1.50) g/dL Methylmalonic Acid 0.89 H (<0.40) umol/L Free [place] LC, Quant 4.51 H (0.33-1.94) mg/dL Free Lambda LC, Quant 3.32 H (0.57-2.63) mg/dL 08/14/21 08/14/21 08/14/21 Range/Units 13:03 16:56 20:36 BUN (9.0-27.0) mg/dL Creatinine (0.6-1.5) mg/dL Est GFR (CKD-EPI)AfAm (60.0-200.0) Est GFR (CKD-EPI)NonAf (60.0-200.0) BUN/Creatinine Ratio (12.00-20.00) Ratio Glucose (70-110) mg/dL POC Glucose (mg/dL) 172 H 211 H 206 H (75-99) mg/dL Calcium (8.7-10.3) mg/dL AST (14-35) U/L ALT (10-49) U/L Total Protein (6.2-8.2) g/dL Albumin (3.8-4.9) g/dL Albumin (PEP) (3.80-4.90) g/dL Beta Globulins (0.60-1.30) g/dL Gamma Globulins (0.70-1.50) g/dL Methylmalonic Acid (<0.40) umol/L Free [place] LC, Quant (0.33-1.94) mg/dL Free Lambda LC, Quant (0.57-2.63) mg/dL 08/15/21 08/15/21 Range/Units 07:21 11:59 BUN (9.0-27.0) mg/dL Creatinine (0.6-1.5) mg/dL Est GFR (CKD-EPI)AfAm (60.0-200.0) Est GFR (CKD-EPI)NonAf (60.0-200.0) BUN/Creatinine Ratio (12.00-20.00) Ratio Glucose (70-110) mg/dL POC Glucose (mg/dL) 158 H 235 H (75-99) mg/dL Calcium (8.7-10.3) mg/dL AST (14-35) U/L ALT (10-49) U/L Total Protein (6.2-8.2) g/dL Albumin (3.8-4.9) g/dL Albumin (PEP) (3.80-4.90) g/dL Beta Globulins (0.60-1.30) g/dL Gamma Globulins (0.70-1.50) g/dL Methylmalonic Acid (<0.40) umol/L Free [place] LC, Quant (0.33-1.94) mg/dL Free Lambda LC, Quant (0.57-2.63) mg/dL Assessment and Plan Assessment: Thrombocytopenia Acute hypoxic history failure with increased oxygen requirement likely due to worsening inflammation treated response due to COVID-19 pneumonia, slowly improving now Bilateral mild pleural effusion interventional radiology felt not safe and small in amount we'll continue to monitor and observe Acute on chronic kidney disease Generalized weakness Fall related to weakness Acute on chronic kidney injury COVID-19 infection Intermittent hemoptysis, improving and resolved GERD BPH Dyslipidemia Coronary artery disease with history of CABG and stent placement Plan: We will stop per recommendation of pharmacy Baricitinib, patient appears to be responding well I are felt that fluid can and cannot be removed safely, besides a small in amount Computed tomography scan of the chest reviewed Continue bronchodilators Reviewed results of sputum for Gram stain and culture Continue deep breathing sense incentive spirometry PT OT evaluation ECF/rehab evaluation for placement Renal functions remain elevated but stable Long-term prognosis poor Time with Patient: Greater than 30
--- NOTE | 2021-08-16 10:33 | P.PN ---
Subjective Progress Note Date: 08/16/21 Principal diagnosis: Acute on chronic hypoxic respiratory failure Pneumonia Blood stained sputum secondary pneumonia Generalized weakness Fall related to weakness COVID-19 infection GERD BPH Dyslipidemia Coronary artery disease with history of CABG and stent placement 08/16/2021, patient is doing overall fairly well, labs such as being drawn, he is on 5 L oxygen breathing comfortably, denies any chest pain cough or sputum production, he remains afebrile with saturation 93%, 08/15/2021, respiratory rate remained stable, awake and alert breathing comfortably, denies any chest pain shortness of breath remains stable, oxygen is down to 5 L, labs from today reviewed BUN is 128 creatinine of 2.9 remains stable, platelet count is 33,000 also however is stable, 08/14/2021, patient seen and evaluated examined awake and alert breathing comfortably on 5 L oxygen, thoracentesis canceled by interventional radiology as the amount of fluid have been reduced will continue supportive care, BUN continued to climb up is 127 creatinine is 2.8, platelet count is 37,000 stable hemoglobin 08/13/2021, patient seen eval examined during the rounds labs reviewed medications reviewed, patient has progressive thrombocytopenia, IR refuse to do thoracentesis which is on hold, Dr. Shaw from hematology has been consulted, labs not done today, patient oxygen demand continued to improve currently on 5 L nasal cannula, denies any chest pain ongoing shortness of breath especially on exertion however is present dry nonproductive cough is present, patient on the direct oral anticoagulant which is currently on hold, IV steroids and antibiotics broad spectrum along with BARICITINAB tolerating well 08/12/2021, patient seen eval examined during the rounds labs reviewed medications reviewed care plan discussed, respiratory status the much better today FiO2 decreased to 7 L rhonchi or 13 L now, patient feeling less short of breath sitting upright, patient underwent ultrasound of the chest slight increase in right-sided pleural effusion seen patient remains on IV Lasix not responding, we will consult interventional radiology for right-sided thoracentesis 08/11/2021, patient seen eval examined during the rounds labs reviewed medications reviewed care plan discussed, respiratory status slightly better FiO2 decreased down from 15 needed to 13 L breathing more comfortably, have early looked on ultrasound of the chest bilateral, small to moderate pleural effusion bilaterally is present, we'll continue to hold on the direct anticoagulant, we will hold thoracentesis repeat ultrasound of the chest in the morning, current for pneumonia as well as COVID-19 infection appears to be working O follow closely 08/10/2021, patient seen eval reexamined during the rounds labs reviewed medications reviewed care plan discussed with the patient, as well as the the RN at length, patient continued to be acutely hypoxic FiO2 have been increased to 15 L high flow oxygen, renal functions remains on the poor side without any significant change, bilateral pleural effusion were seen on radiographic study patient underwent ultrasound of the chest which I reviewed it the hard copy there is a bilateral pleural effusion small to moderate bilaterally is present but however fluid is more accessible on the right side on the left side it's in the form of somewhat in close pocket, patient is on anticoagulation with liquids will hold it lunch to right-sided thoracentesis tomorrow Concern about hypoxia and desaturation acute worsening in the last 72 hours, discussed with the RN as well as the pharmacy, patient will benefit from Baricitinib discussed with pharmacy about prerequisite, labs ordered for d- dimer, C-reactive protein, LDH 08/09/2021, examined during the rounds labs reviewed medications reviewed care plan discussed, respiratory status still marginal patient oxygen requirement is now 9 L now which have been significantly worse, patient underwent computed tomography scan of the chest finding reviewed, mild to moderate bilateral pleural effusion is seen, cardiomegaly, 4.6 cm ascending aorta, finding consistent with congestive heart failure however cold with associated disease process cannot be excluded, would recommend repeat the Covid testing before initiation and therapeutic trial Baricitinib 08/08/2021, patient relatively more short of breath than baseline, oxygen requirement has increased though, creatinine, patient remains afebrile, oxygen requirement now is 9 L, patient is being planned for computed tomography scan of the chest, chest x-ray positive for edema as well as bilateral infiltrate 08/06/2021, patient seen and evaluated examined, respiratory status remained stable, oxygen saturation on 3 L nasal cannula is 91% for pressure is 119/56 patient remains afebrile, tolerating bronchodilator as well, remains on low-dose diuretic anticoagulant, patient is off of antibiotics, on diuretics, Hexadrol milligrams daily 08/05/2021, patient seen eval examined during the rounds labs reviewed medications reviewed care plan discussed, patient remains 2-3 L oxygen, currently on 3 L with the saturation 92%, Ms. afebrile, 08/04/2021, patient seen eval examined during the rounds labs reviewed medications reviewed sitting upright in chair breathing comfortably, remains on 3 L oxygen, intermittent cough is present mostly is dry now, meds reviewed, rem ains on bronchodilator, direct oral anticoagulant, oral Decadron, off of antibiotics now him a BUN/creatinine is 103/2.52, sugars 232, last covid testing was performed on the of this month we'll repeat as symptoms significantly improved, and we'll help placement 08/01/2021, patient seen and evaluated examined during the rounds labs reviewed medications reviewed care plan discussed with the staff and patient at length, hemodynamic status stable however blood pressure slightly high, just received his medications from this morning, intermittent cough is present sputum is mucoid thick, patient currently on 2 L oxygen, independently has been going back and forth in room air oxygen, patient has been switched to oral Augmentin by primary service, remains on direct oral anticoagulant, patient lives by himself at home, extremely weak and requires support to stand currently in the process of being evaluated for placement ECF for short-term rehab 07/31/2021, patient seen eval examined during the rounds labs reviewed medications reviewed care plan discussed, respiratory status continued to be stable, patient now is on room air breathing comfortably, feet, does have cough sputum is light yellow 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, PERRL no hemoptysis has been seen, patient is off of IV steroids for now on Decadron for COVID-19 pneumonia inflammation, she remains on broad-spectrum antibiotics with Zosyn for bilateral basal pneumonia which clinically has been improving, but however still needs it, 07/30/2021, patient seen eval examined during the rounds labs reviewed medications reviewed care plan discussed, respiratory status remains stable intermittently patient has been on room air as well, cough is associated with sputum which is light in color and appearance no more hemoptysis seen, today's labs are reviewed white cell count is 7000 hemoglobin and hematocrit 12 and 39, platelets are 1 46,000, potassium is 5.3 showing a downward trend BUN/creatinine elevated but remains stable 82/2.51, patient back on Hexadrol off of IV steroids 07/29/2021, patient seen eval examined during the rounds labs reviewed medications reviewed, is still short of breath on activity and exertion cough is associated with sputum but slight and now no more hemoptysis is seen, BUN/creatinine is up to 83/2.47, CBC stable, oxygen saturation 97% on 2 L nasal cannula hemodynamic status stable, he remains on IV steroids breathing treatments antibiotics and steroids appeared to be responding well also has COVID-19 infection 07/28/2021, patient seen eval reexamined during the rounds labs reviewed medications reviewed still have ongoing cough on however sputum is clinic clerk 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, no more hemoptysis seen, Sputum culture no pathologic organism have been seen, patient remains afebrile, with oxygen saturation of 91-92% room air, uterus chest x-ray shows slight improvement in bilateral basal infiltrate, labs reviewed today white cell count within normal limit potassium is 5.7 BUN/creatinine is 77 and 2.4, 07/25/2021, patient seen eval examined during the rounds labs reviewed medications reviewed, patient has intermittent cough and he is producing clear to yellow sputum mixed with intermittent stye streaks of blood, more short of breath on 2 L oxygen, discussed with infectious disease services will start patient on IV steroids antibiotics send sputum for Gram stain and culture 07/24/2021, patient seen eval examined during the rounds overall no significant change in saturation 95% on room air, patient remains on oral steroids Decadron 6 mg daily, tolerating well today's x-ray reviewed some streak-like infiltrate at the bases cannot be excluded or perihilar infiltrate 07/23/2021, patient seen eval examined in follow-up, respiratory status not much change, chest x-ray reviewed possible interstitial pattern cannot be excluded, patient remains on room air as saturation 94% with stable hemodynamics, blood pressure is the 110/60, patient remains on bronchodilator continuation of home medications including liquids along with daily 6 mg of Decadron, patient has been restarted on her midodrine Patient is a 89-year-old male came into the hospital with generalized weakness and fall related to weakness, patient sees Dr. Yadav for primary care activities, cagle denies any night sweats fever or chills denies any chest pain or radiation of pain, no fever no bowel or bladder related problem, patient does have cough with sputum production his labs were significant for a hemoglobin of 12.6, platelet count of 10 7000, BUN/creatinine 56/2.27, glucose is 210, troponin 0.055 0.0 6 AM 0.047, oxygen saturation is 90% to 95% room air improved to, "test came back positive, chest x-ray and rib x-ray stable pacemaker and wires no infiltrate or heart failure identified no pneumothorax, currently patient is treated with bronchodilators continuation of home medications including amiodarone and requests primary History is significant for coronary artery disease, COPD, GERD, deafness, dyslipidemia, degenerative joint disease osteoarthritis history of pneumonia and sleep apnea Past surgical history significant for a bypass surgery, cardiac cath and stent placement and hernia repair orthopedic repair history of pacemaker insertion, stents no history of smoking through abuse and substance use Objective - Vital Signs Vital signs: Vital Signs Temp 98.1 F 08/16/21 09:14 Pulse 50 L 08/16/21 09:14 Resp 17 08/16/21 09:14 BP 114/58 08/16/21 09:14 Pulse Ox 93 L 08/16/21 09:14 Intake & Output 08/15/21 08/16/21 08/16/21 18:59 06:59 18:59 Intake Total 300 Balance 300 Intake: Oral 300 Other: Voiding Method Urinal Urinal Diaper Diaper # Voids 3 4 # Bowel Movements 1 1 - Exam - Exam - Constitutional General appearance: average body habitus, cooperative - EENT Eyes: PERRLA Ears: bilateral: normal - Neck Carotids: bilateral: upstroke normal Thyroid: bilateral: normal size - Respiratory Respiratory: bilateral: CTA - Cardiovascular Rhythm: regular Heart sounds: normal: S1, S2 - Gastrointestinal General gastrointestinal: soft - Neurologic Neurologic: CNII-XII intact - Musculoskeletal Musculoskeletal: gait normal, generalized weakness, strength equal bilaterally - Psychiatric Psychiatric: A&O x's 3, appropriate affect, intact judgment & insight - Labs CBC & Chem 7: 08/15/21 07:01 08/15/21 07:01 Labs: Abnormal Lab Results - Last 24 Hours (Table) 08/15/21 08/15/21 08/15/21 Range/Units 07:01 07:01 11:59 WBC 4.09 L (4.50-10.00) X 10*3/uL RBC 2.98 L (4.40-5.60) X 10*6/uL Hgb 8.9 L (13.0-17.0) g/dL Hct 28.7 L (39.6-50.0) % MCHC 31.0 L (32.0-37.0) g/dL RDW 16.5 H (11.5-14.5) % Plt Count 33 L (140-440) X 10*3/uL Plt Count Comment A Lymphocytes # 0.18 L (0.90-5.00) X 10*3/uL Monocytes # 0.08 L (0.20-1.00) X 10*3/uL Eosinophils # 0 L (0.04-0.35) X 10*3/uL Immature Plt Fraction 6.9 H (1.1-6.1) % BUN 128.0 H* (9.0-27.0) mg/dL Creatinine 2.9 H (0.6-1.5) mg/dL Est GFR (CKD-EPI)AfAm 21.2 L (60.0-200.0) Est GFR (CKD-EPI)NonAf 18.3 L (60.0-200.0) BUN/Creatinine Ratio 43.84 H (12.00-20.00) Ratio Glucose 148 H (70-110) mg/dL POC Glucose (mg/dL) 235 H (75-99) mg/dL Calcium 7.7 L (8.7-10.3) mg/dL 08/15/21 08/15/21 08/16/21 Range/Units 16:58 20:12 06:55 WBC (4.50-10.00) X 10*3/uL RBC (4.40-5.60) X 10*6/uL Hgb (13.0-17.0) g/dL Hct (39.6-50.0) % MCHC (32.0-37.0) g/dL RDW (11.5-14.5) % Plt Count (140-440) X 10*3/uL Plt Count Comment Lymphocytes # (0.90-5.00) X 10*3/uL Monocytes # (0.20-1.00) X 10*3/uL Eosinophils # (0.04-0.35) X 10*3/uL Immature Plt Fraction (1.1-6.1) % BUN (9.0-27.0) mg/dL Creatinine (0.6-1.5) mg/dL Est GFR (CKD-EPI)AfAm (60.0-200.0) Est GFR (CKD-EPI)NonAf (60.0-200.0) BUN/Creatinine Ratio (12.00-20.00) Ratio Glucose (70-110) mg/dL POC Glucose (mg/dL) 293 H 349 H 140 H (75-99) mg/dL Calcium (8.7-10.3) mg/dL Assessment and Plan Assessment: Thrombocytopenia Acute hypoxic history failure with increased oxygen requirement likely due to worsening inflammation treated response due to COVID-19 pneumonia, slowly improving now Bilateral mild pleural effusion interventional radiology felt not safe and small in amount we'll continue to monitor and observe Acute on chronic kidney disease Generalized weakness Fall related to weakness Acute on chronic kidney injury COVID-19 infection Intermittent hemoptysis, improving and resolved GERD BPH Dyslipidemia Coronary artery disease with history of CABG and stent placement Plan: Monitor and observe off of Baricitinib, per pharmacy recommendation Interventional radiology felt that fluid can and cannot be removed safely, besides a small in amount Computed tomography scan of the chest reviewed Continue bronchodilators Reviewed results of sputum for Gram stain and culture Continue deep breathing sense incentive spirometry PT OT evaluation ECF/rehab evaluation for placement Renal functions remain elevated but stable Long-term prognosis poor Time with Patient: Greater than 30
[2021-08-16] MEDS: KETOTIFEN 0.025% OPHTH DROPS 5 ML BTL BOTH EYES SCH ×2 (10:34→20:57)
[2021-08-16 10:52] LABS: Anisocytosis Slight; Basophils % (A) 0 %; Eosinophils % (A) 0 %; HCT 31.6 % (39.0-53.0); HGB 10.2 gm/dL (13.0-17.5); Lymphocytes # (A) 0.2 k/uL (1.0-4.8); Lymphocytes % (A) 5 %; MCH 31.8 pg (25.0-35.0); MCHC 32.4 g/dL (31.0-37.0); Macrocytosis Slight; Mean Platelet Volume 9.6; Monocytes # (A) 0.1 k/uL (0-1.0); Monocytes % (A) 3 %; Neutrophils # (A) 3.2 k/uL (1.3-7.7); Neutrophils % (A) 92 %; RBC 3.22 m/uL (4.30-5.90); WBC 3.5 k/uL (3.8-10.6)
[2021-08-16 11:00] LABS: Platelet Count 36 k/uL (150-450)
[2021-08-16 11:15] LABS: ALT 69 U/L (4-49); AST 66 U/L (17-59); African American GFR (CKD) 23 (>60 ml/min/1.73 sqM); Albumin 2.7 g/dL (3.5-5.0); Albumin/Globulin Ratio 1.2; Alkaline Phosphatase 52 U/L (38-126); Anion Gap 8 mmol/L; Calcium 7.8 mg/dL (8.4-10.2); Carbon Dioxide 30 mmol/L (22-30); Chloride 103 mmol/L (98-107); Globulin 2.2 g/dL; Glucose 139 mg/dL (74-99); Magnesium 2.3 mg/dL (1.6-2.3); Non-African American GFR(CKD) 20 (>60 ml/min/1.73 sqM); Potassium 3.9 mmol/L (3.5-5.1); Sodium 141 mmol/L (137-145); Total Protein 4.9 g/dL (6.3-8.2)
[2021-08-16 11:35] LABS: Blood Urea Nitrogen 151 mg/dL (9-20)
[2021-08-16 11:54] LABS: Glucose,Whole Blood 215 mg/dL (75-99)
[2021-08-16 16:24] LABS: Glucose,Whole Blood 312 mg/dL (75-99)
[2021-08-16 20:37] LABS: Glucose,Whole Blood 356 mg/dL (75-99)
[2021-08-16] MEDS: ATORVASTATIN 20 MG TAB PO SCH (20:56)
[2021-08-16] MEDS: MONTELUKAST 10 MG TAB PO SCH (20:56)
[2021-08-16] MEDS: CHOLECALCIFEROL 25 MCG (1000 IU) TABLET PO SCH (20:56)
[2021-08-16] MEDS: FUROSEMIDE 10 MG/ML 2 ML VIAL IV SCH (20:57)
[2021-08-16] MEDS: METOPROLOL SUCCINATE (ER) 25 MG TAB.ER.24H PO SCH (21:53)
[2021-08-16] MEDS: METOPROLOL TARTRATE 25 MG TAB PO SCH (22:00)
--- NOTE | 2021-08-17 00:15 | PN ---
PROGRESS NOTE 89-year-old white male Covid pneumonia secondary pneumonia acute hypoxemic respiratory distress, COPD, CHF with worsening BUN, creatinine elevation due to prerenal renal insufficiency. Lasix will be cut down from 40 b.i.d. to 20 b.i.d. Cardiovascular S1-S2. Lungs are clear. GI soft. Hematology negative Homans. Psych: Fair mood and affect. History of atrial fibrillation. Decrease Lasix to 20 b.i.d. Decrease amiodarone to 100 mg daily. Decrease allopurinol 100 mg daily from 300 mg daily. PROGNOSIS: Guarded. Continue to wean oxygen as tolerated. MMODL / IJN: [id number] /
--- NOTE | 2021-08-17 01:39 | PN ---
PROGRESS NOTE DATE OF SERVICE: 08/16/2021 REASON FOR FOLLOWUP: Pneumonia. INTERVAL HISTORY: Patient is afebrile. The patient is breathing comfortably. The patient denies having any chest pain. No worsening cough or sputum production. No abdominal pain. No diarrhea. PHYSICAL EXAMINATION: Blood pressure 125/59, pulse of 51, temp 97.7, he is 98% on 5 L nasal cannula. General description is an elderly male up in the chair in no distress. Respiratory system: Unlabored breathing, decreased intensity of breath sounds. No wheeze. Heart S1, S2. Regular rate and rhythm. Abdomen soft. No tenderness. LABS: Hemoglobin is 10.8, white count 3.5, creatinine is 2.76. DIAGNOSTIC IMPRESSION AND PLAN: Patient with acute respiratory failure which is multifactorial with concern for possible pneumonia. However, more likely related to fluid overload from underlying renal insufficiency. Patient completed a course of antibiotics and will be monitored closely off antibiotic. Continue supportive care with Zosyn to continue. MMODL / IJN: [id number] /
[2021-08-17] MEDS: methylPREDNISolone SOD SUCCI 40 MG/ML 1 ML VIAL IV SCH ×3 (05:13→17:39)
[2021-08-17 06:54] LABS: Glucose,Whole Blood 141 mg/dL (75-99)
[2021-08-17] MEDS: ALBUTEROL HFA INHALER INHALATION PRN ×4 (07:35→19:23)
--- NOTE | 2021-08-17 07:43 | P.PN ---
Subjective Progress Note Date: 08/17/21 Principal diagnosis: Acute on chronic hypoxic respiratory failure Pneumonia Blood stained sputum secondary pneumonia Generalized weakness Fall related to weakness COVID-19 infection GERD BPH Dyslipidemia Coronary artery disease with history of CABG and stent placement 08/17/2021, patient seen and evaluated examined, patient remains afebrile, labs from today however is pending but yesterday BUN up to 151. Now 2.76 which remains stable, platelet count is 36,000, patient remains on 5 L sats however her variable 08/16/2021, patient is doing overall fairly well, labs such as being drawn, he is on 5 L oxygen breathing comfortably, denies any chest pain cough or sputum production, he remains afebrile with saturation 93%, 08/15/2021, respiratory rate remained stable, awake and alert breathing comfortably, denies any chest pain shortness of breath remains stable, oxygen is down to 5 L, labs from today reviewed BUN is 128 creatinine of 2.9 remains stable, platelet count is 33,000 also however is stable, 08/14/2021, patient seen and evaluated examined awake and alert breathing comfortably on 5 L oxygen, thoracentesis canceled by interventional radiology as the amount of fluid have been reduced will continue supportive care, BUN continued to climb up is 127 creatinine is 2.8, platelet count is 37,000 stable hemoglobin 08/13/2021, patient seen eval examined during the rounds labs reviewed medications reviewed, patient has progressive thrombocytopenia, IR refuse to do thoracentesis which is on hold, Dr. Shaw from hematology has been consulted, labs not done today, patient oxygen demand continued to improve currently on 5 L nasal cannula, denies any chest pain ongoing shortness of breath especially on exertion however is present dry nonproductive cough is present, patient on the direct oral anticoagulant which is currently on hold, IV steroids and ant ibiotics broad spectrum along with BARICITINAB tolerating well 08/12/2021, patient seen eval examined during the rounds labs reviewed medications reviewed care plan discussed, respiratory status the much better today FiO2 decreased to 7 L rhonchi or 13 L now, patient feeling less short of breath sitting upright, patient underwent ultrasound of the chest slight increase in right-sided pleural effusion seen patient remains on IV Lasix not responding, we will consult interventional radiology for right-sided thoracentesis 08/11/2021, patient seen eval examined during the rounds labs reviewed med ications reviewed care plan discussed, respiratory status slightly better FiO2 decreased down from 15 needed to 13 L breathing more comfortably, have early looked on ultrasound of the chest bilateral, small to moderate pleural effusion bilaterally is present, we'll continue to hold on the direct anticoagulant, we will hold thoracentesis repeat ultrasound of the chest in the morning, current for pneumonia as well as COVID-19 infection appears to be working O follow closely 08/10/2021, patient seen eval reexamined during the rounds labs reviewed medications reviewed care plan discussed with the patient, as well as the the RN at length, patient continued to be acutely hypoxic FiO2 have been increased to 15 L high flow oxygen, renal functions remains on the poor side without any significant change, bilateral pleural effusion were seen on radiographic study patient underwent ultrasound of the chest which I reviewed it the hard copy there is a bilateral pleural effusion small to moderate bilaterally is present but however fluid is more accessible on the right side on the left side it's in the form of somewhat in close pocket, patient is on anticoagulation with liquids will hold it lunch to right-sided thoracentesis tomorrow Concern about hypoxia and desaturation acute worsening in the last 72 hours, discussed with the RN as well as the pharmacy, patient will benefit from Baricitinib discussed with pharmacy about prerequisite, labs ordered for d- dimer, C-reactive protein, LDH 08/09/2021, examined during the rounds labs reviewed medications reviewed care plan discussed, respiratory status still marginal patient oxygen requirement is now 9 L now which have been significantly worse, patient underwent computed tomography scan of the chest finding reviewed, mild to moderate bilateral pleural effusion is seen, cardiomegaly, 4.6 cm ascending aorta, finding consistent with congestive heart failure however cold with associated disease process cannot be excluded, would recommend repeat the Covid testing before initiation and therapeutic trial Baricitinib 08/08/2021, patient relatively more short of breath than baseline, oxygen requirement has increased though, creatinine, patient remains afebrile, oxygen requirement now is 9 L, patient is being planned for computed tomography scan of the chest, chest x-ray positive for edema as well as bilateral infiltrate 08/06/2021, patient seen and evaluated examined, respiratory status remained stable, oxygen saturation on 3 L nasal cannula is 91% for pressure is 119/56 patient remains afebrile, tolerating bronchodilator as well, remains on low-dose diuretic anticoagulant, patient is off of antibiotics, on diuretics, Hexadrol milligrams daily 08/05/2021, patient seen eval examined during the rounds labs reviewed medications reviewed care plan discussed, patient remains 2-3 L oxygen, currently on 3 L with the saturation 92%, afebrile, 08/04/2021, patient seen eval examined during the rounds labs reviewed medications reviewed sitting upright in chair breathing comfortably, remains on 3 L oxygen, intermittent cough is present mostly is dry now, meds reviewed, remains on bronchodilator, direct oral anticoagulant, oral Decadron, off of antibiotics now him a BUN/creatinine is 103/2.52, sugars 232, last covid testing was performed on the of this month we'll repeat as symptoms significantly improved, and we'll help placement 08/01/2021, patient seen and evaluated examined during the rounds labs reviewed medications reviewed care plan discussed with the staff and patient at length, hemodynamic status stable however blood pressure slightly high, just received his medications from this morning, intermittent cough is present sputum is mucoid thick, patient currently on 2 L oxygen, independently has been going back and forth in room air oxygen, patient has been switched to oral Augmentin by primary service, remains on direct oral anticoagulant, patient lives by himself at home, extremely weak and requires support to stand currently in the process of being evaluated for placement ECF for short-term rehab 07/31/2021, patient seen eval examined during the rounds labs reviewed medications reviewed care plan discussed, respiratory status continued to be stable, patient now is on room air breathing comfortably, feet, does have cough sputum is light yellow 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, PERRL no hemoptysis has been seen, patient is off of IV steroids for now on Decadron for COVID-19 pneumonia inflammation, she remains on broad-spectrum antibiotics with Zosyn for bilateral basal pneumonia which clinically has been improving, but however still needs it, 07/30/2021, patient seen eval examined during the rounds labs reviewed medications reviewed care plan discussed, respiratory status remains stable intermittently patient has been on room air as well, cough is associated with sputum which is light in color and appearance no more hemoptysis seen, today's labs are reviewed white cell count is 7000 hemoglobin and hematocrit 12 and 39, platelets are 1 46,000, potassium is 5.3 showing a downward trend BUN/creatinine elevated but remains stable 82/2.51, patient back on Hexadrol off of IV steroids 07/29/2021, patient seen eval examined during the rounds labs reviewed medications reviewed, is still short of breath on activity and exertion cough is associated with sputum but slight and now no more hemoptysis is seen, BUN/creatinine is up to 83/2.47, CBC stable, oxygen saturation 97% on 2 L nasal cannula hemodynamic status stable, he remains on IV steroids breathing treatments antibiotics and steroids appeared to be responding well also has COVID-19 infection 07/28/2021, patient seen eval reexamined during the rounds labs reviewed medications reviewed still have ongoing cough on however 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, no more hemoptysis seen, Sputum culture no pathologic organism have been seen, patient remains afebrile, with oxygen saturation of 91-92% room air, uterus chest x-ray shows slight improvement in bilateral basal infiltrate, labs reviewed today white cell count within normal limit potassium is 5.7 BUN/creatinine is 77 and 2.4, 07/25/2021, patient seen eval examined during the rounds labs reviewed medications reviewed, patient has intermittent cough and he is producing clear to yellow sputum mixed with intermittent stye streaks of blood, more short of breath on 2 L oxygen, discussed with infectious disease services will start patient on IV steroids antibiotics send sputum for Gram stain and culture 07/24/2021, patient seen eval examined during the rounds overall no significant change in saturation 95% on room air, patient remains on oral steroids Decadron 6 mg daily, tolerating well today's x-ray reviewed some streak-like infiltrate at the bases cannot be excluded or perihilar infiltrate 07/23/2021, patient seen eval examined in follow-up, respiratory status not much change, chest x-ray reviewed possible interstitial pattern cannot be excluded, patient remains on room air as saturation 94% with stable hemodynamics, blood pressure is the 110/60, patient remains on bronchodilator continuation of home medications including liquids along with daily 6 mg of Decadron, patient has been restarted on her midodrine Patient is a 89-year-old male came into the hospital with generalized weakness and fall related to weakness, patient sees Dr. Yadav for primary care activities, cagle denies any night sweats fever or chills denies any chest pain or radiation of pain, no fever no bowel or bladder related problem, patient does have cough with sputum production his labs were significant for a hemoglobin of 12.6, platelet count of 10 7000, BUN/creatinine 56/2.27, glucose is 210, troponin 0.055 0.0 6 AM 0.047, oxygen saturation is 90% to 95% room air improved to, "test came back positive, chest x-ray and rib x-ray stable pacemaker and wires no infiltrate or heart failure identified no pneumothorax, currently patient is treated with bronchodilators continuation of home medications including amiodarone and requests primary History is significant for coronary artery disease, COPD, GERD, deafness, dyslipidemia, degenerative joint disease osteoarthritis history of pneumonia and sleep apnea Past surgical history significant for a bypass surgery, cardiac cath and stent placement and hernia repair orthopedic repair history of pacemaker insertion, stents no history of smoking through abuse and substance use Objective - Vital Signs Vital signs: Vital Signs Temp 97.5 F L 08/17/21 05:37 Pulse 51 L 08/17/21 05:37 Resp 16 08/17/21 05:37 BP 118/69 08/17/21 05:37 Pulse Ox 89 L 08/17/21 05:37 Intake & Output 08/16/21 08/17/21 08/17/21 18:59 06:59 18:59 Output Total 300 Balance -300 Output: Urine 300 Other: Voiding Method Diaper Urinal Incontinent Diaper # Voids 3 - Exam - Exam - Constitutional General appearance: average body habitus, cooperative - EENT Eyes: PERRLA Ears: bilateral: normal - Neck Carotids: bilateral: upstroke normal Thyroid: bilateral: normal size - Respiratory Respiratory: bilateral: CTA - Cardiovascular Rhythm: regular Heart sounds: normal: S1, S2 - Gastrointestinal General gastrointestinal: soft - Neurologic Neurologic: CNII-XII intact - Musculoskeletal Musculoskeletal: gait normal, generalized weakness, strength equal bilaterally - Psychiatric Psychiatric: A&O x's 3, appropriate affect, intact judgment & insight - Labs CBC & Chem 7: 08/16/21 10:03 08/16/21 10:03 Labs: Abnormal Lab Results - Last 24 Hours (Table) 08/16/21 08/16/21 08/16/21 Range/Units 10:03 10:03 11:52 WBC 3.5 L (3.8-10.6) k/uL RBC 3.22 L (4.30-5.90) m/uL Hgb 10.2 L (13.0-17.5) gm/dL Hct 31.6 L (39.0-53.0) % RDW 16.0 H (11.5-15.5) % Plt Count 36 L (150-450) k/uL Lymphocytes # 0.2 L (1.0-4.8) k/uL BUN 151 H* (9-20) mg/dL Creatinine 2.76 H (0.66-1.25) mg/dL Glucose 139 H (74-99) mg/dL POC Glucose (mg/dL) 215 H (75-99) mg/dL Calcium 7.8 L (8.4-10.2) mg/dL AST 66 H (17-59) U/L ALT 69 H (4-49) U/L Total Protein 4.9 L (6.3-8.2) g/dL Albumin 2.7 L (3.5-5.0) g/dL 08/16/21 08/16/21 08/17/21 Range/Units 16:19 20:28 06:52 WBC (3.8-10.6) k/uL RBC (4.30-5.90) m/uL Hgb (13.0-17.5) gm/dL Hct (39.0-53.0) % RDW (11.5-15.5) % Plt Count (150-450) k/uL Lymphocytes # (1.0-4.8) k/uL BUN (9-20) mg/dL Creatinine (0.66-1.25) mg/dL Glucose (74-99) mg/dL POC Glucose (mg/dL) 312 H 356 H 141 H (75-99) mg/dL Calcium (8.4-10.2) mg/dL AST (17-59) U/L ALT (4-49) U/L Total Protein (6.3-8.2) g/dL Albumin (3.5-5.0) g/dL Assessment and Plan Assessment: Acute hypoxic history failure Acute on chronic kidney disease Thrombocytopenia Generalized weakness Fall related to weakness Acute on chronic kidney injury COVID-19 infection Bilateral mild pleural effusion interventional radiology felt not safe and small in amount we'll continue to monitor and observe Intermittent hemoptysis, improving and resolved GERD BPH Dyslipidemia Coronary artery disease with history of CABG and stent placement Plan: We'll check pro-calcitonin, and chest x-ray Monitor and observe off of Baricitinib, per pharmacy recommendation Interventional radiology felt that fluid can and cannot be removed safely, besides a small in amount Computed tomography scan of the chest reviewed Continue bronchodilators Reviewed results of sputum for Gram stain and culture Continue deep breathing sense incentive spirometry PT OT evaluation ECF/rehab evaluation for placement Renal functions remain elevated but stable Long-term prognosis poor Time with Patient: Greater than 30
[2021-08-17] MEDS: guaiFENesin 600 MG TABLET.ER PO SCH ×2 (08:06→20:39)
[2021-08-17] MEDS: ZINC SULFATE 220 MG CAP PO SCH (08:06)
[2021-08-17] MEDS: TAMSULOSIN 0.4 MG CAP.ER.24H PO SCH (08:06)
[2021-08-17] MEDS: FUROSEMIDE 10 MG/ML 2 ML VIAL IV SCH ×2 (08:06→20:38)
[2021-08-17] MEDS: allopurinoL 100 MG TAB PO SCH (08:06)
[2021-08-17] MEDS: APIXABAN 2.5 MG TABLET PO SCH ×2 (08:06→20:39)
[2021-08-17] MEDS: MIDODRINE 5 MG TAB PO SCH ×3 (08:06→17:38)
[2021-08-17] MEDS: ASCORBIC ACID 500 MG TAB PO SCH (08:07)
[2021-08-17] MEDS: FINASTERIDE 5 MG TAB PO SCH (08:07)
[2021-08-17] MEDS: PANTOPRAZOLE 40 MG TABLET PO SCH (08:07)
[2021-08-17] MEDS: AMIODARONE 100 MG TAB PO SCH (08:07)
[2021-08-17] MEDS: ACETAMINOPHEN TAB 325 MG TAB PO PRN ×2 (08:07→20:39)
[2021-08-17] MEDS: CHOLESTYRAMINE (WITH SUGAR) 4 GM PACKET PO SCH ×2 (08:08→17:39)
[2021-08-17] MEDS: INSULIN ASPART (NovoLOG) 100 UNIT/ML VIAL SQ SCH ×4 (08:08→21:48)
[2021-08-17] MEDS: METOPROLOL TARTRATE 25 MG TAB PO SCH ×2 (08:09→20:39)
--- NOTE | 2021-08-17 09:29 | XR ---
EXAMINATION TYPE: XR chest 1V DATE OF EXAM: 08/17/2021 8:33 AM COMPARISON:Chest radiographs from 08/08/2021 CLINICAL INDICATION:Male, 89 years old with history of pneumonia; TECHNIQUE: Frontal view of the chest. FINDINGS: Lungs/Pleura: Known left lower lobe pneumonia is difficult to evaluate given cardiomegaly appears con solidation changes over the heart. Basilar streaky atelectasis is noted. Blunting of the right costop hrenic angle is present. No evidence of pneumothorax. Pulmonary vascularity: Pulmonary vascular congestion. Heart/mediastinum: Cardiomediastinal silhouette is unremarkable. Musculoskeletal: No acute osseous pathology. Other findings: Two lead cardiac conduction device overlying the left hemithorax with lead tips projecting over the r ight ventricle and right atrium. Midline sternotomy wires are noted and stable. IMPRESSION: 1. Known left lower lobe pneumonia is difficult to evaluate given cardiomegaly there is persistent co nsolidation changes projecting over the heart. The CT did demonstrate debris in the left lower lobe a irways, correlate for aspiration. 2. Right basilar streaky atelectasis with small right pleural effusion. The pleural effusion appears improved from prior 3. Similar cardiomegaly.
--- NOTE | 2021-08-17 09:39 | P.PN ---
Subjective Progress Note Date: 08/17/21 Principal diagnosis: This is a 89-year-old male seen in consultation with acute kidney injury secondary to covid pneumonia, also has chronic kidney disease. Currently on nasal cannula oxygen He sees is not feeling well but is unable to be specific. Mostly tired and fatigued and no appetite No nausea vomiting diarrhea Urine output is not well documented Vital signs are stable. Objective - Vital Signs Vital signs: Vital Signs Temp 97.5 F L 08/17/21 05:37 Pulse 51 L 08/17/21 05:37 Resp 16 08/17/21 05:37 BP 118/69 08/17/21 05:37 Pulse Ox 89 L 08/17/21 05:37 Intake & Output 08/16/21 08/17/21 08/17/21 18:59 06:59 18:59 Output Total 300 Balance -300 Output: Urine 300 Other: Voiding Method Diaper Urinal Incontinent Diaper # Voids 3 On exam awake alert oriented but weak tired. HEENT exam no JVP neck is supple no facial asymmetry Lungs are rather unremarkable fairly good air entry bilaterally occasional coarse crackle at bases Heart sounds unremarkable for any murmur rub gallop Abdomen soft nontender. Extremity exam reveals mild edema Neurologically awake alert but profoundly weak. A chest x-ray this morning is showing some improvement. - Labs CBC & Chem 7: 08/16/21 10:03 08/16/21 10:03 Labs: Abnormal Lab Results - Last 24 Hours (Table) 08/16/21 08/16/21 08/16/21 Range/Units 10:03 10:03 11:52 WBC 3.5 L (3.8-10.6) k/uL RBC 3.22 L (4.30-5.90) m/uL Hgb 10.2 L (13.0-17.5) gm/dL Hct 31.6 L (39.0-53.0) % RDW 16.0 H (11.5-15.5) % Plt Count 36 L (150-450) k/uL Lymphocytes # 0.2 L (1.0-4.8) k/uL BUN 151 H* (9-20) mg/dL Creatinine 2.76 H (0.66-1.25) mg/dL Glucose 139 H (74-99) mg/dL POC Glucose (mg/dL) 215 H (75-99) mg/dL Calcium 7.8 L (8.4-10.2) mg/dL AST 66 H (17-59) U/L ALT 69 H (4-49) U/L Total Protein 4.9 L (6.3-8.2) g/dL Albumin 2.7 L (3.5-5.0) g/dL 08/16/21 08/16/21 08/17/21 Range/Units 16:19 20:28 06:52 WBC (3.8-10.6) k/uL RBC (4.30-5.90) m/uL Hgb (13.0-17.5) gm/dL Hct (39.0-53.0) % RDW (11.5-15.5) % Plt Count (150-450) k/uL Lymphocytes # (1.0-4.8) k/uL BUN (9-20) mg/dL Creatinine (0.66-1.25) mg/dL Glucose (74-99) mg/dL POC Glucose (mg/dL) 312 H 356 H 141 H (75-99) mg/dL Calcium (8.4-10.2) mg/dL AST (17-59) U/L ALT (4-49) U/L Total Protein (6.3-8.2) g/dL Albumin (3.5-5.0) g/dL Assessment and Plan Assessment: Impression 1. Acute kidney injury secondary to Covid pneumonia. Element of cardiorenal syndrome is also thought to be likely. Disproportionate increase in BUN secondary to steroids. Creatinine has improved slightly from 2.9-2.76 as of yesterday. Last 2 days are pending 2. Chronic kidney disease stage III creatinine ranging 1.5 mg to 2 mg, secondary to nephrosclerosis and possibly atrophied right kidney possibility of renovascular disease 3. Admitted with Covid 19 pneumonia and bacterial pneumonia stable, chest x-ray shows improvement 4. Anemia hemoglobin is 8.9, improved to 10.2 as of yesterday, adequate iron saturation 5. Low platelet count 36,000 secondary to Covid and sepsis 6. Slightly increased liver function tests, possibly from the infection, patient is also on Lipitor Recommendation 1. Use Lasix sparingly to improve edema slowly considering there is no congestive heart failure by x-ray or by clinical exam, watch labs and Monitor blood pressure .
[2021-08-17 11:12] LABS: Basophils # (A) 0 X 10*3/uL (0.00-0.10); Basophils % (A) 0 %; Eosinophils # (A) 0 X 10*3/uL (0.04-0.35); Eosinophils % (A) 0 %; HCT 28.7 % (39.6-50.0); HGB 8.9 g/dL (13.0-17.0); Lymphocytes # (A) 0.23 X 10*3/uL (0.90-5.00); MCH 30.2 pg (27.0-32.0); MCV 97.3 fL (80.0-97.0); Mean Platelet Volume 12.5 fL (9.5-12.2); Monocytes # (A) 0.17 X 10*3/uL (0.20-1.00); Monocytes % (A) 5.9 %; Neutrophils # (A) 2.45 X 10*3/uL (1.80-7.70); Neutrophils % (A) 85.8 %; Platelet Count 37 X 10*3/uL (140-440); RBC 2.95 X 10*6/uL (4.40-5.60); RDW 16.3 % (11.5-14.5); WBC 2.86 X 10*3/uL (4.50-10.00)
[2021-08-17 11:22] LABS: African American GFR (CKD) 23.3 (60.0-200.0); Albumin 2.8 g/dL (3.8-4.9); Albumin/Globulin Ratio 1.75 (1.60-3.17); BUN/Creat Ratio 56.67 Ratio (12.00-20.00); Calcium 7.8 mg/dL (8.7-10.3); Globulin 1.6 g/dL (1.6-3.3); Non-African American GFR(CKD) 20.1 (60.0-200.0); Potassium 4.4 mmol/L (3.5-5.5); Total Bilirubin 0.7 mg/dL (0.30-1.20); Total Protein 4.4 g/dL (6.2-8.2)
[2021-08-17 11:38] LABS: Glucose,Whole Blood 184 mg/dL (75-99)
--- NOTE | 2021-08-17 13:02 | P.PN ---
Subjective Progress Note Date: 08/17/21 Condition continues to complain of generalized weakness, fatigue and a mixed appetite. Respiratory status appears to be mildly improved. No unusual bleeding other than a small transient nosebleed. Objective - Vital Signs Vital signs: Vital Signs Temp 97 F L 08/17/21 09:23 Pulse 51 L 08/17/21 09:23 Resp 18 08/17/21 09:23 BP 101/45 08/17/21 09:23 Pulse Ox 91 L 08/17/21 09:23 Intake & Output 08/16/21 08/17/21 08/17/21 18:59 06:59 18:59 Output Total 300 Balance -300 Output: Urine 300 Other: Voiding Method Diaper Urinal Diaper Incontinent Diaper Incontinent # Voids 3 1 # Bowel Movements 1 - Constitutional General appearance: Present: no acute distress - EENT Eyes: Present: EOMI ENT: Present: hearing grossly normal - Respiratory Respiratory: left: diminished - Cardiovascular Rhythm: regular Heart sounds: normal: S1, S2 - Gastrointestinal General gastrointestinal: Present: normal bowel sounds, soft - Integumentary Integumentary: Present: normal - Neurologic Neurologic: Present: CNII-XII intact - Musculoskeletal Musculoskeletal: Present: generalized weakness, strength equal bilaterally - Psychiatric Psychiatric: Present: A&O x's 3 - Labs CBC & Chem 7: 08/17/21 06:04 08/17/21 06:04 Labs: Abnormal Lab Results - Last 24 Hours (Table) 08/16/21 08/16/21 08/17/21 Range/Units 16:19 20:28 06:04 WBC 2.86 L (4.50-10.00) X 10*3/uL RBC 2.95 L (4.40-5.60) X 10*6/uL Hgb 8.9 L (13.0-17.0) g/dL Hct 28.7 L (39.6-50.0) % MCV 97.3 H (80.0-97.0) fL MCHC 31.0 L (32.0-37.0) g/dL RDW 16.3 H (11.5-14.5) % Plt Count 37 L (140-440) X 10*3/uL Plt Count Comment A MPV 12.5 H (9.5-12.2) fL Lymphocytes # 0.23 L (0.90-5.00) X 10*3/uL Monocytes # 0.17 L (0.20-1.00) X 10*3/uL Eosinophils # 0 L (0.04-0.35) X 10*3/uL Immature Plt Fraction 6.2 H (1.1-6.1) % Carbon Dioxide (20.0-27.5) mmol/L BUN (9.0-27.0) mg/dL Creatinine (0.6-1.5) mg/dL Est GFR (CKD-EPI)AfAm (60.0-200.0) Est GFR (CKD-EPI)NonAf (60.0-200.0) BUN/Creatinine Ratio (12.00-20.00) Ratio POC Glucose (mg/dL) 312 H 356 H (75-99) mg/dL Calcium (8.7-10.3) mg/dL AST (14-35) U/L ALT (10-49) U/L Total Protein (6.2-8.2) g/dL Albumin (3.8-4.9) g/dL 08/17/21 08/17/21 08/17/21 Range/Units 06:04 06:52 11:19 WBC (4.50-10.00) X 10*3/uL RBC (4.40-5.60) X 10*6/uL Hgb (13.0-17.0) g/dL Hct (39.6-50.0) % MCV (80.0-97.0) fL MCHC (32.0-37.0) g/dL RDW (11.5-14.5) % Plt Count (140-440) X 10*3/uL Plt Count Comment MPV (9.5-12.2) fL Lymphocytes # (0.90-5.00) X 10*3/uL Monocytes # (0.20-1.00) X 10*3/uL Eosinophils # (0.04-0.35) X 10*3/uL Immature Plt Fraction (1.1-6.1) % Carbon Dioxide 29.0 H (20.0-27.5) mmol/L BUN 153.0 H* (9.0-27.0) mg/dL Creatinine 2.7 H (0.6-1.5) mg/dL Est GFR (CKD-EPI)AfAm 23.3 L (60.0-200.0) Est GFR (CKD-EPI)NonAf 20.1 L (60.0-200.0) BUN/Creatinine Ratio 56.67 H (12.00-20.00) Ratio POC Glucose (mg/dL) 141 H 184 H (75-99) mg/dL Calcium 7.8 L (8.7-10.3) mg/dL AST 57 H (14-35) U/L ALT 72 H (10-49) U/L Total Protein 4.4 L (6.2-8.2) g/dL Albumin 2.8 L (3.8-4.9) g/dL Assessment and Plan (1) Thrombocytopenia Narrative/Plan: . Counts appear to have stabilized in the 30,000 range. Lab workup for other causes of pancytopenia, including HIT were all negative. These were discussed with the patient. Therefore at this time thrombus cytopenia due to consumption from his acute illness appears to most likely. - Continue to monitor. Expect recovery of platelet count of baseline, as the patient acute condition recovers. Current Visit: Yes Status: Acute Code(s): D69.6 - THROMBOCYTOPENIA, UNSPECIFIED SNOMED Code(s): 444883672 (2) Pneumonia due to COVID-19 virus Narrative/Plan: Defer to the admitting service and other consultants for management of this and other multiple medical problems Current Visit: Yes Status: Acute Code(s): U07.1 - COVID-19; J12.82 - PNEUMONIA DUE TO CORONAVIRUS DISEASE 2018 SNOMED Code(s): 235848870656330582
[2021-08-17] MEDS: KETOTIFEN 0.025% OPHTH DROPS 5 ML BTL BOTH EYES SCH ×2 (13:21→20:39)
[2021-08-17 16:18] LABS: Glucose,Whole Blood 280 mg/dL (75-99)
--- NOTE | 2021-08-17 18:35 | P.PN ---
Progress Note - Text Therapy notes reviewed. Patient still maximal assist plus for functional mobility and ADLs, still not ready for full inpatient rehabilitation.
[2021-08-17 20:12] LABS: Glucose,Whole Blood 229 mg/dL (75-99)
[2021-08-17] MEDS: ATORVASTATIN 20 MG TAB PO SCH (20:38)
[2021-08-17] MEDS: MONTELUKAST 10 MG TAB PO SCH (20:39)
[2021-08-17] MEDS: CHOLECALCIFEROL 25 MCG (1000 IU) TABLET PO SCH (20:39)
--- NOTE | 2021-08-17 22:22 | PN ---
PROGRESS NOTE The patient is having difficulty swallowing. He is on a pureed diet. Some pills are being crushed. He says he is feeling a little bit better. Temperature 97.7, pulse is 49-68, blood pressure is 120-130 over 60s. He is 97% on 5 L. Cardiovascular S1, S2. Lungs with transmitted upper airway sounds. Hematology negative Homans. Hemoglobin is 8.9 with a white count 2.86, platelet count 37. He definitely has pancytopenia, probably secondary to COVID. Elevated BUN and creatinine, BUN 153, creatinine 2.7, for which I am going to decrease his Lasix from 40 to 20 b.i.d. Diabetes mellitus. Sugars in the 100s to 200s. Procalcitonin remains high at 0.21, so IV antibiotics have been continued. Dr. Shaw saw him for pancytopenia, Dr. Albrecht for rehab. Lungs are clear. He has been up in bed. He is sleepy and lethargic. Hematology negative Homans. Pancytopenia secondary to COVID most likely. Pneumonia secondary to COVID-19 virus. Generalized weakness. Hopefully Dr. Albrecht will take him to rehab center. That is our recommendation at this time. Prognosis guarded. MMODL / IJN: [id number] /
--- NOTE | 2021-08-17 23:16 | PN ---
PROGRESS NOTE DATE OF SERVICE: 08/17/2021 REASON FOR FOLLOWUP: Pneumonia. INTERVAL HISTORY: The patient is afebrile. The patient is breathing slightly comfortably, requiring about 5 L nasal cannula. The patient denies having any chest pain or worsening cough or sputum production. No abdominal pain or diarrhea. PHYSICAL EXAMINATION: Blood pressure 117/61, pulse of 50, temperature 97.8. He is 99% on 5 L nasal cannula. General description is an elderly male up in the bed in no distress. Respiratory system: Unlabored breathing, decreased intensity of breath sounds. No wheeze. Heart S1, S2. Regular rate and rhythm. Abdomen soft, no tenderness. LABS: Hemoglobin 8.8, white count 2.86, creatinine is 2.7. DIAGNOSTIC IMPRESSION AND PLAN: Patient with acute respiratory failure which is multifactorial, possibly fluid-related, currently with elevated BUN and creatinine. Component of pneumonia has been adequately treated. Patient with no fever or elevated white count. Will monitor him closely off antibiotic therapy. Continue supportive care. MMODL / IJN: [id number] /
[2021-08-18] MEDS: methylPREDNISolone SOD SUCCI 40 MG/ML 1 ML VIAL IV SCH ×4 (00:21→17:12)
[2021-08-18 06:51] LABS: Anisocytosis Slight; Basophils % (A) 0 %; Eosinophils % (A) 0 %; HCT 32.1 % (39.0-53.0); HGB 10.3 gm/dL (13.0-17.5); Lymphocytes # (A) 0.2 k/uL (1.0-4.8); Lymphocytes % (A) 19 %; MCH 31.9 pg (25.0-35.0); MCV 99.5 fL (80.0-100.0); Macrocytosis Slight; Mean Platelet Volume 11.9; Monocytes # (A) 0.1 k/uL (0-1.0); Monocytes % (A) 5 %; Neutrophils # (A) 0.9 k/uL (1.3-7.7); Neutrophils % (A) 76 %; RBC 3.23 m/uL (4.30-5.90); RDW 16.1 % (11.5-15.5)
[2021-08-18 07:07] LABS: Glucose,Whole Blood 150 mg/dL (75-99)
[2021-08-18 07:10] LABS: ALT 69 U/L (4-49); AST 63 U/L (17-59); African American GFR (CKD) 26 (>60 ml/min/1.73 sqM); Albumin 2.6 g/dL (3.5-5.0); Albumin/Globulin Ratio 1.1; Alkaline Phosphatase 70 U/L (38-126); Anion Gap 6 mmol/L; Calcium 8.4 mg/dL (8.4-10.2); Carbon Dioxide 33 mmol/L (22-30); Chloride 104 mmol/L (98-107); Globulin 2.3 g/dL; Glucose 148 mg/dL (74-99); Non-African American GFR(CKD) 23 (>60 ml/min/1.73 sqM); Potassium 4.5 mmol/L (3.5-5.1); Sodium 143 mmol/L (137-145); Total Bilirubin 0.9 mg/dL (0.2-1.3); Total Protein 4.9 g/dL (6.3-8.2)
[2021-08-18 07:28] LABS: WBC 1.2 k/uL (3.8-10.6)
[2021-08-18 07:29] LABS: Platelet Count 39 k/uL (150-450)
[2021-08-18 07:34] LABS: Blood Urea Nitrogen 155 mg/dL (9-20)
[2021-08-18] MEDS: METOPROLOL TARTRATE 25 MG TAB PO SCH ×2 (08:42→20:54)
[2021-08-18] MEDS: guaiFENesin 600 MG TABLET.ER PO SCH ×2 (08:42→20:53)
[2021-08-18] MEDS: TAMSULOSIN 0.4 MG CAP.ER.24H PO SCH (08:42)
[2021-08-18] MEDS: APIXABAN 2.5 MG TABLET PO SCH (08:42)
[2021-08-18] MEDS: ZINC SULFATE 220 MG CAP PO SCH (08:43)
[2021-08-18] MEDS: FINASTERIDE 5 MG TAB PO SCH (08:43)
[2021-08-18] MEDS: PANTOPRAZOLE 40 MG TABLET PO SCH (08:43)
[2021-08-18] MEDS: allopurinoL 100 MG TAB PO SCH (08:43)
[2021-08-18] MEDS: FUROSEMIDE 10 MG/ML 2 ML VIAL IV SCH ×2 (08:43→20:53)
[2021-08-18] MEDS: ASCORBIC ACID 500 MG TAB PO SCH (08:43)
[2021-08-18] MEDS: MIDODRINE 5 MG TAB PO SCH ×3 (08:43→17:12)
[2021-08-18] MEDS: INSULIN ASPART (NovoLOG) 100 UNIT/ML VIAL SQ SCH ×4 (08:43→20:54)
[2021-08-18] MEDS: AMIODARONE 100 MG TAB PO SCH (08:44)
[2021-08-18] MEDS: KETOTIFEN 0.025% OPHTH DROPS 5 ML BTL BOTH EYES SCH ×2 (08:44→20:55)
[2021-08-18] MEDS: ALBUTEROL HFA INHALER INHALATION PRN ×2 (08:46→16:48)
[2021-08-18] MEDS: CHOLESTYRAMINE (WITH SUGAR) 4 GM PACKET PO SCH ×3 (11:04→17:18)
[2021-08-18 11:47] LABS: Glucose,Whole Blood 204 mg/dL (75-99)
--- NOTE | 2021-08-18 12:29 | PN ---
PROGRESS NOTE Patient is seen for followup for acute kidney injury mostly ATN on top of chronic kidney disease. His serum creatinine has been slowly improving down to 2.4 on the creatinine from 2.7 yesterday, although the BUN is disproportionately elevated secondary to steroids. Patient has also had urine retention on and off. Currently he is retaining about 514 mL of urine. We will plan for straight cath and if he continues to retain a Aceves catheter will be placed. PHYSICAL EXAMINATION: On examination today, blood pressure 111/54, heart rate 54 per minute. Patient is afebrile. Examination of lower extremities shows edema 1+ bilaterally. Abdomen is soft, nontender. [employer]ER exam grossly intact. LAB: Show sodium 143, potassium of 4.5, BUN 155, creatinine 2.4, hemoglobin 10.3 g/dL. ASSESSMENT: 1. Acute kidney injury ATN and possibly related to underlying urine retention as well. Serum creatinine has been decreasing. BUN disproportionately elevated secondary to steroids. Place Aceves catheter if he continues to have urine retention. 2. Chronic kidney disease stage 3. Creatinine ranging from 1.5-2 mg/dL secondary to nephrosclerosis and atrophic right kidney. 3. Covid pneumonia with superimposed bacterial pneumonia, currently showing improvement. 4. Anemia of chronic disease maintained on Aranesp. 5. Thrombocytopenia associated with underlying infection. 6. Urine retention plan for straight catheterization if this is recurrent, a Aceves catheter will be placed. Continue to encourage increased oral intake. MMODL / IJN: [id number] /
[2021-08-18 16:40] LABS: Glucose,Whole Blood 145 mg/dL (75-99)
--- NOTE | 2021-08-18 17:23 | P.PN ---
Subjective Progress Note Date: 08/18/21 Principal diagnosis: Acute on chronic hypoxic respiratory failure Pneumonia Blood stained sputum secondary pneumonia Generalized weakness Fall related to weakness COVID-19 infection GERD BPH Dyslipidemia Coronary artery disease with history of CABG and stent placement 08/18/2021, patient seen eval examined during the rounds respiratory status remains stable, denies any chest pain, oxygen gradually have been titrated down now on 4 L saturation is 96%, now white cell count is 1200 late rate count 39,000, BUN/creatinine continue of 155/2.43 service have been following 08/17/2021, patient seen and evaluated examined, patient remains afebrile, labs from today however is pending but yesterday BUN up to 151. Now 2.76 which remains stable, platelet count is 36,000, patient remains on 5 L sats however her variable 08/16/2021, patient is doing overall fairly well, labs such as being drawn, he is on 5 L oxygen breathing comfortably, denies any chest pain cough or sputum production, he remains afebrile with saturation 93%, 08/15/2021, respiratory rate remained stable, awake and alert breathing comfortably, denies any chest pain shortness of breath remains stable, oxygen is down to 5 L, labs from today reviewed BUN is 128 creatinine of 2.9 remains stable, platelet count is 33,000 also however is stable, 08/14/2021, patient seen and evaluated examined awake and alert breathing comfortably on 5 L oxygen, thoracentesis canceled by interventional radiology as the amount of fluid have been reduced will continue supportive care, BUN continued to climb up is 127 creatinine is 2.8, platelet count is 37,000 stable hemoglobin 08/13/2021, patient seen eval examined during the rounds labs reviewed medications reviewed, patient has progressive thrombocytopenia, IR refuse to do thoracentesis which is on hold, Dr. Shaw from hematology has been consulted, labs not done today, patient oxygen demand continued to improve currently on 5 L nasal cannula, denies any chest pain ongoing shortness of breath especially on exertion however is present dry nonproductive cough is present, patient on the direct oral anticoagulant which is currently on hold, IV steroids and antibiotics broad spectrum along with BARICITINAB tolerating well 08/12/2021, patient seen eval examined during the rounds labs reviewed medications reviewed care plan discussed, respiratory status the much better today FiO2 decreased to 7 L rhonchi or 13 L now, patient feeling less short of breath sitting upright, patient underwent ultrasound of the chest slight increase in right-sided pleural effusion seen patient remains on IV Lasix not responding, we will consult interventional radiology for right-sided thoracentesis 08/11/2021, patient seen eval examined during the rounds labs reviewed medications reviewed care plan discussed, respiratory status slightly better FiO2 decreased down from 15 needed to 13 L breathing more comfortably, have early looked on ultrasound of the chest bilateral, small to moderate pleural effusion bilaterally is present, we'll continue to hold on the direct anticoagulant, we will hold thoracentesis repeat ultrasound of the chest in the morning, current for pneumonia as well as COVID-19 infection appears to be working O follow closely 08/10/2021, patient seen eval reexamined during the rounds labs reviewed medications reviewed care plan discussed with the patient, as well as the the RN at length, patient continued to be acutely hypoxic FiO2 have been increased to 15 L high flow oxygen, renal functions remains on the poor side without any significant change, bilateral pleural effusion were seen on radiographic study patient underwent ultrasound of the chest which I reviewed it the hard copy there is a bilateral pleural effusion small to moderate bilaterally is present but however fluid is more accessible on the right side on the left side it's in the form of somewhat in close pocket, patient is on anticoagulation with liquids will hold it lunch to right-sided thoracentesis tomorrow Concern about hypoxia and desaturation acute worsening in the last 72 hours, discussed with the RN as well as the pharmacy, patient will benefit from Baricit inib discussed with pharmacy about prerequisite, labs ordered for d-dimer, C- reactive protein, LDH 08/09/2021, examined during the rounds labs reviewed medications reviewed care plan discussed, respiratory status still marginal patient oxygen requirement is now 9 L now which have been significantly worse, patient underwent computed tomography scan of the chest finding reviewed, mild to moderate bilateral pleural effusion is seen, cardiomegaly, 4.6 cm ascending aorta, finding consistent with congestive heart failure however cold with associated disease process cannot be excluded, would recommend repeat the Covid testing before initiation and therapeutic trial Baricitinib 08/08/2021, patient relatively more short of breath than baseline, oxygen requirement has increased though, creatinine, patient remains afebrile, oxygen requirement now is 9 L, patient is being planned for computed tomography scan of the chest, chest x-ray positive for edema as well as bilateral infiltrate 08/06/2021, patient seen and evaluated examined, respiratory status remained stable, oxygen saturation on 3 L nasal cannula is 91% for pressure is 119/56 patient remains afebrile, tolerating bronchodilator as well, remains on low-dose diuretic anticoagulant, patient is off of antibiotics, on diuretics, Hexadrol milligrams daily 08/05/2021, patient seen eval examined during the rounds labs reviewed medicati ons reviewed care plan discussed, patient remains 2-3 L oxygen, currently on 3 L with the saturation 92%, Ms. afebrile, 08/04/2021, patient seen eval examined during the rounds labs reviewed medicati ons reviewed sitting upright in chair breathing comfortably, remains on 3 L oxygen, intermittent cough is present mostly is dry now, meds reviewed, remains on bronchodilator, direct oral anticoagulant, oral Decadron, off of antibiotics now him a BUN/creatinine is 103/2.52, sugars 232, last covid testing was performed on the of this month we'll repeat as symptoms significantly improved, and we'll help placement 08/01/2021, patient seen and evaluated examined during the rounds labs reviewed medications reviewed care plan discussed with the staff and patient at length, hemodynamic status stable however blood pressure slightly high, just received his medications from this morning, intermittent cough is present sputum is mucoid thick, patient currently on 2 L oxygen, independently has been going back and forth in room air oxygen, patient has been switched to oral Augmentin by primary service, remains on direct oral anticoagulant, patient lives by himself at home, extremely weak and requires support to stand currently in the process of being evaluated for placement ECF for short-term rehab 07/31/2021, patient seen eval examined during the rounds labs reviewed medications reviewed care plan discussed, respiratory status continued to be stable, patient now is on room air breathing comfortably, feet, does have cough sputum is light yellow 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, PERRL no hemoptysis has been seen, patient is off of IV steroids for now on Decadron for COVID-19 pneumonia inflammation, she remains on broad-spectrum antibiotics with Zosyn for bilateral basal pneumonia which clinically has been improving, but however still needs it, 07/30/2021, patient seen eval examined during the rounds labs reviewed medications reviewed care plan discussed, respiratory status remains stable intermittently patient has been on room air as well, cough is associated with sputum which is light in color and appearance no more hemoptysis seen, today's labs are reviewed white cell count is 7000 hemoglobin and hematocrit 12 and 39, platelets are 1 46,000, potassium is 5.3 showing a downward trend BUN/creatinine elevated but remains stable 82/2.51, patient back on Hexadrol off of IV steroids 07/29/2021, patient seen eval examined during the rounds labs reviewed medications reviewed, is still short of breath on activity and exertion cough is associated with sputum but slight and now no more hemoptysis is seen, BUN/creatinine is up to 83/2.47, CBC stable, oxygen saturation 97% on 2 L nasal cannula hemodynamic status stable, he remains on IV steroids breathing treatments antibiotics and steroids appeared to be responding well also has COVID-19 infection 07/28/2021, patient seen eval reexamined during the rounds labs reviewed medications reviewed still have ongoing cough on however sputum is paper colorer 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, no more hemoptysis seen, Sputum culture no pathologic organism have been seen, patient remains afebrile, with oxygen saturation of 91-92% room air, uterus chest x-ray shows slight improvement in bilateral basal infiltrate, labs reviewed today white cell count within normal limit potassium is 5.7 BUN/creatinine is 77 and 2.4, 07/25/2021, patient seen eval examined during the rounds labs reviewed medications reviewed, patient has intermittent cough and he is producing clear to yellow sputum mixed with intermittent stye streaks of blood, more short of breath on 2 L oxygen, discussed with infectious disease services will start patient on IV steroids antibiotics send sputum for Gram stain and culture 07/24/2021, patient seen eval examined during the rounds overall no significant change in saturation 95% on room air, patient remains on oral steroids Decadron 6 mg daily, tolerating well today's x-ray reviewed some streak-like infiltrate at the bases cannot be excluded or perihilar infiltrate 07/23/2021, patient seen eval examined in follow-up, respiratory status not much change, chest x-ray reviewed possible interstitial pattern cannot be excluded, patient remains on room air as saturation 94% with stable hemodynamics, blood pressure is the 110/60, patient remains on bronchodilator continuation of home medications including liquids along with daily 6 mg of Decadron, patient has been restarted on her midodrine Patient is a 89-year-old male came into the hospital with generalized weakness and fall related to weakness, patient sees Dr. Yadav for primary care activities, cagle denies any night sweats fever or chills denies any chest pain or radiation of pain, no fever no bowel or bladder related problem, patient does have cough with sputum production his labs were significant for a hemoglobin of 12.6, platelet count of 10 7000, BUN/creatinine 56/2.27, glucose is 210, troponin 0.055 0.0 6 AM 0.047, oxygen saturation is 90% to 95% room air improved to, "test came back positive, chest x-ray and rib x-ray stable pacemaker and wires no infiltrate or heart failure identified no pneumothorax, currently patient is treated with bronchodilators continuation of home medications including amiodarone and requests primary History is significant for coronary artery disease, COPD, GERD, deafness, dyslipidemia, degenerative joint disease osteoarthritis history of pneumonia and sleep apnea Past surgical history significant for a bypass surgery, cardiac cath and stent placement and hernia repair orthopedic repair history of pacemaker insertion, stents no history of smoking through abuse and substance use Objective - Vital Signs Vital signs: Vital Signs Temp 97.5 F L 08/18/21 14:00 Pulse 50 L 08/18/21 14:00 Resp 16 08/18/21 14:00 BP 115/54 08/18/21 14:00 Pulse Ox 96 08/18/21 14:00 Intake & Output 08/17/21 08/18/21 08/18/21 18:59 06:59 18:59 Intake Total 180 Output Total 250 400 450 Balance -70 -400 -450 Intake: Oral 180 Output: Urine 250 400 450 Straight 450 Other: Voiding Method Diaper External Catheter External Catheter Incontinent # Voids 1 # Bowel Movements 1 2 - Exam - Exam - Constitutional General appearance: average body habitus, cooperative - EENT Eyes: PERRLA Ears: bilateral: normal - Neck Carotids: bilateral: upstroke normal Thyroid: bilateral: normal size - Respiratory Respiratory: bilateral: CTA - Cardiovascular Rhythm: regular Heart sounds: normal: S1, S2 - Gastrointestinal General gastrointestinal: soft - Neurologic Neurologic: CNII-XII intact - Musculoskeletal Musculoskeletal: gait normal, generalized weakness, strength equal bilaterally - Psychiatric Psychiatric: A&O x's 3, appropriate affect, intact judgment & insight - Labs CBC & Chem 7: 08/18/21 06:37 08/18/21 06:37 Labs: Abnormal Lab Results - Last 24 Hours (Table) 08/13/21 08/17/21 08/17/21 Range/Units 12:38 06:04 20:10 WBC (3.8-10.6) k/uL RBC (4.30-5.90) m/uL Hgb (13.0-17.5) gm/dL Hct (39.0-53.0) % RDW (11.5-15.5) % Plt Count (150-450) k/uL Neutrophils # (1.3-7.7) k/uL Lymphocytes # (1.0-4.8) k/uL Carbon Dioxide (22-30) mmol/L BUN (9-20) mg/dL Creatinine (0.66-1.25) mg/dL Glucose (74-99) mg/dL POC Glucose (mg/dL) 229 H (75-99) mg/dL AST (17-59) U/L ALT (4-49) U/L LD Isoenzymes 373 H (120-250) U/L Total Protein (6.3-8.2) g/dL Albumin (3.5-5.0) g/dL Procalcitonin 0.21 H (0.02-0.09) ng/mL 08/18/21 08/18/21 08/18/21 Range/Units 06:37 06:37 07:05 WBC 1.2 L* (3.8-10.6) k/uL RBC 3.23 L (4.30-5.90) m/uL Hgb 10.3 L (13.0-17.5) gm/dL Hct 32.1 L (39.0-53.0) % RDW 16.1 H (11.5-15.5) % Plt Count 39 L (150-450) k/uL Neutrophils # 0.9 L (1.3-7.7) k/uL Lymphocytes # 0.2 L (1.0-4.8) k/uL Carbon Dioxide 33 H (22-30) mmol/L BUN 155 H* (9-20) mg/dL Creatinine 2.43 H (0.66-1.25) mg/dL Glucose 148 H (74-99) mg/dL POC Glucose (mg/dL) 150 H (75-99) mg/dL AST 63 H (17-59) U/L ALT 69 H (4-49) U/L LD Isoenzymes (120-250) U/L Total Protein 4.9 L (6.3-8.2) g/dL Albumin 2.6 L (3.5-5.0) g/dL Procalcitonin (0.02-0.09) ng/mL 08/18/21 08/18/21 Range/Units 11:46 16:39 WBC (3.8-10.6) k/uL RBC (4.30-5.90) m/uL Hgb (13.0-17.5) gm/dL Hct (39.0-53.0) % RDW (11.5-15.5) % Plt Count (150-450) k/uL Neutrophils # (1.3-7.7) k/uL Lymphocytes # (1.0-4.8) k/uL Carbon Dioxide (22-30) mmol/L BUN (9-20) mg/dL Creatinine (0.66-1.25) mg/dL Glucose (74-99) mg/dL POC Glucose (mg/dL) 204 H 145 H (75-99) mg/dL AST (17-59) U/L ALT (4-49) U/L LD Isoenzymes (120-250) U/L Total Protein (6.3-8.2) g/dL Albumin (3.5-5.0) g/dL Procalcitonin (0.02-0.09) ng/mL Assessment and Plan Assessment: Acute hypoxic history failure Acute on chronic kidney disease Thrombocytopenia Generalized weakness Fall related to weakness Acute on chronic kidney injury COVID-19 infection Bilateral mild pleural effusion interventional radiology felt not safe and small in amount we'll continue to monitor and observe Intermittent hemoptysis, improving and resolved GERD BPH Dyslipidemia Coronary artery disease with history of CABG and stent placement Plan: We'll check pro-calcitonin, and chest x-ray Monitor and observe off of Baricitinib, per pharmacy recommendation Interventional radiology felt that fluid can and cannot be removed safely, besides a small in amount Computed tomography scan of the chest reviewed Continue bronchodilators Reviewed results of sputum for Gram stain and culture Continue deep breathing sense incentive spirometry PT OT evaluation ECF/rehab evaluation for placement Renal functions remain elevated but stable Long-term prognosis poor Time with Patient: Greater than 30
--- NOTE | 2021-08-18 19:25 | P.PN ---
Subjective Progress Note Date: 08/18/21 Principal diagnosis: Pancytopenia In f/u pt states he feels ok, his back is sore but this is not new. He is starting to drink fluids and soft foods, keeping everything down. Objective - Vital Signs Vital signs: Vital Signs Temp 98.1 F 08/18/21 18:11 Pulse 51 L 08/18/21 18:11 Resp 16 08/18/21 18:11 BP 108/52 08/18/21 18:11 Pulse Ox 93 L 08/18/21 18:11 Intake & Output 08/18/21 08/18/21 08/19/21 06:59 18:59 06:59 Output Total 400 450 Balance -400 -450 Output: Urine 400 450 Straight 450 Other: Voiding Method External Catheter External Catheter # Bowel Movements 2 - Constitutional General appearance: Present: average body habitus, cooperative, no acute distress - EENT EENT Comment(s): very dry mucus membranes Eyes: Present: anicteric sclerae, EOMI ENT: Present: hearing grossly normal - Respiratory Respiratory: bilateral: diminished - Cardiovascular Heart sounds: normal: S1, S2 Abnormal Heart Sounds: Absent: systolic murmur, diastolic murmur, rub, S3 Gallop, S4 Gallop, click, other - Peripheral edema leg Peripheral Edema: bilateral: Trace - Gastrointestinal General gastrointestinal: Present: normal bowel sounds, soft - Musculoskeletal Musculoskeletal: Present: generalized weakness - Psychiatric Psychiatric: Present: A&O x's 3, appropriate affect, intact judgment & insight - Labs CBC & Chem 7: 08/18/21 06:37 08/18/21 06:37 Labs: Abnormal Lab Results - Last 24 Hours (Table) 08/13/21 08/17/21 08/17/21 Range/Units 12:38 06:04 20:10 WBC (3.8-10.6) k/uL RBC (4.30-5.90) m/uL Hgb (13.0-17.5) gm/dL Hct (39.0-53.0) % RDW (11.5-15.5) % Plt Count (150-450) k/uL Neutrophils # (1.3-7.7) k/uL Lymphocytes # (1.0-4.8) k/uL Carbon Dioxide (22-30) mmol/L BUN (9-20) mg/dL Creatinine (0.66-1.25) mg/dL Glucose (74-99) mg/dL POC Glucose (mg/dL) 229 H (75-99) mg/dL AST (17-59) U/L ALT (4-49) U/L LD Isoenzymes 373 H (120-250) U/L Total Protein (6.3-8.2) g/dL Albumin (3.5-5.0) g/dL Procalcitonin 0.21 H (0.02-0.09) ng/mL 08/18/21 08/18/21 08/18/21 Range/Units 06:37 06:37 07:05 WBC 1.2 L* (3.8-10.6) k/uL RBC 3.23 L (4.30-5.90) m/uL Hgb 10.3 L (13.0-17.5) gm/dL Hct 32.1 L (39.0-53.0) % RDW 16.1 H (11.5-15.5) % Plt Count 39 L (150-450) k/uL Neutrophils # 0.9 L (1.3-7.7) k/uL Lymphocytes # 0.2 L (1.0-4.8) k/uL Carbon Dioxide 33 H (22-30) mmol/L BUN 155 H* (9-20) mg/dL Creatinine 2.43 H (0.66-1.25) mg/dL Glucose 148 H (74-99) mg/dL POC Glucose (mg/dL) 150 H (75-99) mg/dL AST 63 H (17-59) U/L ALT 69 H (4-49) U/L LD Isoenzymes (120-250) U/L Total Protein 4.9 L (6.3-8.2) g/dL Albumin 2.6 L (3.5-5.0) g/dL Procalcitonin (0.02-0.09) ng/mL 08/18/21 08/18/21 Range/Units 11:46 16:39 WBC (3.8-10.6) k/uL RBC (4.30-5.90) m/uL Hgb (13.0-17.5) gm/dL Hct (39.0-53.0) % RDW (11.5-15.5) % Plt Count (150-450) k/uL Neutrophils # (1.3-7.7) k/uL Lymphocytes # (1.0-4.8) k/uL Carbon Dioxide (22-30) mmol/L BUN (9-20) mg/dL Creatinine (0.66-1.25) mg/dL Glucose (74-99) mg/dL POC Glucose (mg/dL) 204 H 145 H (75-99) mg/dL AST (17-59) U/L ALT (4-49) U/L LD Isoenzymes (120-250) U/L Total Protein (6.3-8.2) g/dL Albumin (3.5-5.0) g/dL Procalcitonin (0.02-0.09) ng/mL Assessment and Plan (1) Pancytopenia Narrative/Plan: [place] to be r/t acute infection as work up has not revealed an underlying malignancy, platelet disorder, or hemolysis Hgb 10.3, stable. Transfuse for Hgb < 7 WBC 1.2, ANC 900, no GCSF at this time. ANC >500, afebrile currently. Plt 39,000, no anticoagluation unless plt >50,000 CBC daily while inpt Current Visit: Yes Status: Acute Priority: High Code(s): D61.818 - OTHER PANCYTOPENIA SNOMED Code(s): 368445023
[2021-08-18 19:56] LABS: Glucose,Whole Blood 107 mg/dL (75-99)
[2021-08-18] MEDS: CHOLECALCIFEROL 25 MCG (1000 IU) TABLET PO SCH (20:53)
[2021-08-18] MEDS: ATORVASTATIN 20 MG TAB PO SCH (20:53)
[2021-08-18] MEDS: MONTELUKAST 10 MG TAB PO SCH (20:53)
[2021-08-18 21:31] LABS: Hepatitis B Surface AB- Quant 3.5 mIU/mL; Hepatitis B Surface Antibody Nonreactive (Nonreactive); Hepatitis B Surface Antigen Nonreactive (Nonreactive)
[2021-08-19] MEDS: methylPREDNISolone SOD SUCCI 40 MG/ML 1 ML VIAL IV SCH ×4 (00:28→16:59)
--- NOTE | 2021-08-19 06:09 | PN ---
PROGRESS NOTE The patient has had difficulty swallowing today. Going to order barium swallow for in the morning. He has severe pancytopenia, white count 1.44 for which Hematology has been consulted. Temperature 98.1, pulse 51, respiratory 16-18, blood pressure 108/52, O2 93%. Cardiovascular S1, S2. Lungs transmitted upper airway sounds. Hematology negative Homans. Psych: Fair mood and affect. 2+ peripheral edema. White count 1.2, hemoglobin is 10.3, platelets 39. Unclear why he has severe pancytopenia, Hematology has been consulted. He has recently had Covid pneumonia, COPD, CHF. Says he has been having difficulty swallowing today. We will order barium swallow. Get hematology to try to assess him for pancytopenia. PROGNOSIS: Extremely guarded. MMOKL / JOANNEN: [id number] /
[2021-08-19 07:03] LABS: Glucose,Whole Blood 137 mg/dL (75-99)
[2021-08-19] MEDS: PANTOPRAZOLE 40 MG TABLET PO SCH (08:08)
[2021-08-19] MEDS: ASCORBIC ACID 500 MG TAB PO SCH (08:08)
[2021-08-19] MEDS: allopurinoL 100 MG TAB PO SCH (08:08)
[2021-08-19] MEDS: METOPROLOL TARTRATE 25 MG TAB PO SCH ×2 (08:09→20:23)
[2021-08-19] MEDS: ZINC SULFATE 220 MG CAP PO SCH (08:09)
[2021-08-19] MEDS: guaiFENesin 600 MG TABLET.ER PO SCH ×2 (08:09→20:23)
[2021-08-19] MEDS: MIDODRINE 5 MG TAB PO SCH ×3 (08:09→16:59)
[2021-08-19] MEDS: TAMSULOSIN 0.4 MG CAP.ER.24H PO SCH (08:09)
[2021-08-19] MEDS: FINASTERIDE 5 MG TAB PO SCH (08:09)
[2021-08-19] MEDS: FUROSEMIDE 10 MG/ML 2 ML VIAL IV SCH ×2 (08:09→20:18)
[2021-08-19] MEDS: CHOLESTYRAMINE (WITH SUGAR) 4 GM PACKET PO SCH ×2 (08:10→16:59)
[2021-08-19] MEDS: INSULIN ASPART (NovoLOG) 100 UNIT/ML VIAL SQ SCH ×4 (08:10→20:18)
[2021-08-19] MEDS: AMIODARONE 100 MG TAB PO SCH (08:10)
[2021-08-19] MEDS: KETOTIFEN 0.025% OPHTH DROPS 5 ML BTL BOTH EYES SCH ×2 (08:11→20:18)
[2021-08-19 11:10] LABS: Basophils # (A) 0 X 10*3/uL (0.00-0.10); Basophils % (A) 0 %; Eosinophils # (A) 0 X 10*3/uL (0.04-0.35); Eosinophils % (A) 0 %; HCT 26.2 % (39.6-50.0); HGB 8.3 g/dL (13.0-17.0); Lymphocytes # (A) 0.13 X 10*3/uL (0.90-5.00); Lymphocytes % (A) 13.5 %; MCH 30.4 pg (27.0-32.0); MCHC 31.7 g/dL (32.0-37.0); Monocytes # (A) 0.06 X 10*3/uL (0.20-1.00); Monocytes % (A) 6.3 %; Neutrophils # (A) 0.76 X 10*3/uL (1.80-7.70); Neutrophils % (A) 79.2 %; Platelet Count 34 X 10*3/uL (140-440); RBC 2.73 X 10*6/uL (4.40-5.60); RDW 16.6 % (11.5-14.5); WBC 0.96 X 10*3/uL (4.50-10.00)
[2021-08-19 11:32] LABS: Glucose,Whole Blood 306 mg/dL (75-99)
[2021-08-19 11:43] LABS: African American GFR (CKD) 29.4 (60.0-200.0); Albumin 2.7 g/dL (3.8-4.9); Albumin/Globulin Ratio 1.65 (1.60-3.17); Anion Gap 11.7 mmol/L (10.00-18.00); BUN/Creat Ratio 62.78 Ratio (12.00-20.00); Calcium 8.3 mg/dL (8.7-10.3); Carbon Dioxide 28.2 mmol/L (20.0-27.5); Globulin 1.6 g/dL (1.6-3.3); Non-African American GFR(CKD) 25.4 (60.0-200.0); Potassium 4.5 mmol/L (3.5-5.5); Total Protein 4.3 g/dL (6.2-8.2)
--- NOTE | 2021-08-19 13:42 | FL ---
COMPARISON: NONE DATE OF EXAM: 08/19/2021 HISTORY: Dysphasia A number of thin and thick substances were ingested under the care of the department of speech pathol ogy. There is delayed initiation of the swallowing mechanism. There is no evidence of aspiration or penetration. There is no evidence of obstruction. 1.30 minutes of fluoroscopy and no images submitted. IMPRESSION: 1. No evidence of aspiration or penetration. 2. Delayed initiation of the swallowing mechanism.
[2021-08-19 16:35] LABS: Glucose,Whole Blood 227 mg/dL (75-99)
--- NOTE | 2021-08-19 18:16 | PN ---
PROGRESS NOTE Patient is seen for followup for acute kidney injury. His renal function has been slowly improving, creatinine down to 2.2. BUN has also decreased today, down to 140. Patient is sitting up on a bedside chair. He denies any significant complaints. On examination today, blood pressure 112/63, heart rate 49 per minute. Patient is afebrile. Examination of lower extremities shows edema bilaterally 1+, currently decreased as compared to one week ago. Abdomen is soft, nontender. ENDODONTIC ASSISTANT exam grossly intact. Lungs and heart not examined. Labs show hemoglobin 8.3, sodium 148, potassium 4.5, BUN 140, serum creatinine 2.2. ASSESSMENT: 1. Acute kidney injury, acute tubular necrosis, with prerenal component, currently improving. Lasix is at 20 mg q.12 hours, which we can continue for now. Patient has disproportionately elevated BUN, which is also improving. This is mostly associated with use of steroids. 2. COVID-19 pneumonia. 3. Chronic kidney disease, stage 3; baseline creatinine 1.5 to 2 mg/dL associated with nephrosclerosis and atrophic right kidney. 4. Superimposed bacterial pneumonia, maintained on antibiotics. 5. Urine retention, currently with external catheter. Straight catheterization was done yesterday for 450 mL. Continue to monitor for now. 6. Hypernatremia associated with free water deficit. Encourage increased free water intake. PLAN: Increase free water intake. If sodium is higher tomorrow, I will add D5W. Continue with the IV Lasix for now. MMODL / IJN: [id number] /
[2021-08-19 19:53] LABS: Glucose,Whole Blood 158 mg/dL (75-99)
[2021-08-19] MEDS: NYSTATIN 100,000 UNIT/ML SUSP 500,000 UNIT/5 ML CUP PO SCH (20:23)
[2021-08-19] MEDS: MONTELUKAST 10 MG TAB PO SCH (20:23)
[2021-08-19] MEDS: CHOLECALCIFEROL 25 MCG (1000 IU) TABLET PO SCH (20:23)
[2021-08-19] MEDS: ATORVASTATIN 20 MG TAB PO SCH (20:23)
[2021-08-20] MEDS: methylPREDNISolone SOD SUCCI 40 MG/ML 1 ML VIAL IV SCH ×4 (00:51→16:54)
[2021-08-20 07:06] LABS: Glucose,Whole Blood 186 mg/dL (75-99)
[2021-08-20] MEDS: METOPROLOL TARTRATE 25 MG TAB PO SCH ×2 (07:39→21:14)
[2021-08-20] MEDS: TAMSULOSIN 0.4 MG CAP.ER.24H PO SCH (07:40)
[2021-08-20] MEDS: guaiFENesin 600 MG TABLET.ER PO SCH ×2 (07:40→21:14)
[2021-08-20] MEDS: allopurinoL 100 MG TAB PO SCH (07:40)
[2021-08-20] MEDS: MIDODRINE 5 MG TAB PO SCH ×3 (07:40→16:53)
[2021-08-20] MEDS: PANTOPRAZOLE 40 MG TABLET PO SCH (07:40)
[2021-08-20] MEDS: ZINC SULFATE 220 MG CAP PO SCH (07:41)
[2021-08-20] MEDS: FINASTERIDE 5 MG TAB PO SCH (07:41)
[2021-08-20] MEDS: AMIODARONE 100 MG TAB PO SCH (07:41)
[2021-08-20] MEDS: ASCORBIC ACID 500 MG TAB PO SCH (07:41)
[2021-08-20] MEDS: FUROSEMIDE 10 MG/ML 2 ML VIAL IV SCH ×2 (07:42→21:14)
[2021-08-20] MEDS: KETOTIFEN 0.025% OPHTH DROPS 5 ML BTL BOTH EYES SCH ×2 (07:42→21:14)
[2021-08-20] MEDS: INSULIN ASPART (NovoLOG) 100 UNIT/ML VIAL SQ SCH ×4 (07:42→21:14)
[2021-08-20] MEDS: NYSTATIN 100,000 UNIT/ML SUSP 500,000 UNIT/5 ML CUP PO SCH ×4 (07:43→21:13)
[2021-08-20] MEDS: CHOLESTYRAMINE (WITH SUGAR) 4 GM PACKET PO SCH ×2 (07:43→16:57)
[2021-08-20] MEDS: ALBUTEROL HFA INHALER INHALATION PRN ×4 (08:03→21:59)
[2021-08-20 11:30] LABS: Basophils # (A) 0 X 10*3/uL (0.00-0.10); Basophils % (A) 0 %; Eosinophils # (A) 0 X 10*3/uL (0.04-0.35); Eosinophils % (A) 0 %; HCT 29.2 % (39.6-50.0); HGB 8.7 g/dL (13.0-17.0); Lymphocytes # (A) 0.14 X 10*3/uL (0.90-5.00); Lymphocytes % (A) 8.8 %; MCH 29.6 pg (27.0-32.0); MCHC 29.8 g/dL (32.0-37.0); MCV 99.3 fL (80.0-97.0); Monocytes % (A) 6.3 %; Neutrophils # (A) 1.34 X 10*3/uL (1.80-7.70); Neutrophils % (A) 84.3 %; Platelet Count 37 X 10*3/uL (140-440); RBC 2.94 X 10*6/uL (4.40-5.60); RDW 16.7 % (11.5-14.5); WBC 1.59 X 10*3/uL (4.50-10.00)
[2021-08-20 11:39] LABS: African American GFR (CKD) 33.5 (60.0-200.0); Albumin 2.9 g/dL (3.8-4.9); Albumin/Globulin Ratio 1.81 (1.60-3.17); Calcium 8.4 mg/dL (8.7-10.3); Globulin 1.6 g/dL (1.6-3.3); Non-African American GFR(CKD) 28.9 (60.0-200.0); Potassium 4.3 mmol/L (3.5-5.5); Total Bilirubin 1.1 mg/dL (0.30-1.20); Total Protein 4.5 g/dL (6.2-8.2)
[2021-08-20 11:58] LABS: Glucose,Whole Blood 259 mg/dL (75-99)
--- NOTE | 2021-08-20 14:24 | P.PN ---
Subjective Progress Note Date: 08/20/21 Principal diagnosis: Pancytopenia In f/u pt states he feels ok, his back is sore but this is not new. He is starting to drink fluids and soft foods, keeping everything down. Objective - Vital Signs Vital signs: Vital Signs Temp 97.5 F L 08/20/21 10:00 Pulse 51 L 08/20/21 10:00 Resp 17 08/20/21 10:00 BP 103/64 08/20/21 10:00 Pulse Ox 87 L 08/20/21 10:00 Intake & Output 08/19/21 08/20/21 08/20/21 18:59 06:59 18:59 Output Total 720 1100 Balance -720 -1100 Weight 76 kg Output: Urine 720 1100 Other: Voiding Method External Catheter Diaper Diaper Incontinent Incontinent External Catheter External Catheter - Constitutional General appearance: Present: average body habitus, cooperative, no acute di stress - EENT Eyes: Present: EOMI ENT: Present: hearing grossly normal - Labs CBC & Chem 7: 08/20/21 06:19 08/20/21 06:19 Labs: Abnormal Lab Results - Last 24 Hours (Table) 08/19/21 08/19/21 08/20/21 Range/Units 16:34 19:50 06:19 WBC 1.59 L (4.50-10.00) X 10*3/uL RBC 2.94 L (4.40-5.60) X 10*6/uL Hgb 8.7 L (13.0-17.0) g/dL Hct 29.2 L (39.6-50.0) % MCV 99.3 H (80.0-97.0) fL MCHC 29.8 L (32.0-37.0) g/dL RDW 16.7 H (11.5-14.5) % Plt Count 37 L (140-440) X 10*3/uL Plt Count Comment DECREASED A Neutrophils # 1.34 L (1.80-7.70) X 10*3/uL Lymphocytes # 0.14 L (0.90-5.00) X 10*3/uL Monocytes # 0.10 L (0.20-1.00) X 10*3/uL Eosinophils # 0 L (0.04-0.35) X 10*3/uL Immature Plt Fraction 8.7 H (1.1-6.1) % Sodium (135-145) mmol/L Carbon Dioxide (20.0-27.5) mmol/L BUN (9.0-27.0) mg/dL Creatinine (0.6-1.5) mg/dL Est GFR (CKD-EPI)AfAm (60.0-200.0) Est GFR (CKD-EPI)NonAf (60.0-200.0) BUN/Creatinine Ratio (12.00-20.00) Ratio Glucose (70-110) mg/dL POC Glucose (mg/dL) 227 H 158 H (75-99) mg/dL Calcium (8.7-10.3) mg/dL AST (14-35) U/L ALT (10-49) U/L Total Protein (6.2-8.2) g/dL Albumin (3.8-4.9) g/dL 08/20/21 08/20/21 08/20/21 Range/Units 06:19 07:04 11:55 WBC (4.50-10.00) X 10*3/uL RBC (4.40-5.60) X 10*6/uL Hgb (13.0-17.0) g/dL Hct (39.6-50.0) % MCV (80.0-97.0) fL MCHC (32.0-37.0) g/dL RDW (11.5-14.5) % Plt Count (140-440) X 10*3/uL Plt Count Comment Neutrophils # (1.80-7.70) X 10*3/uL Lymphocytes # (0.90-5.00) X 10*3/uL Monocytes # (0.20-1.00) X 10*3/uL Eosinophils # (0.04-0.35) X 10*3/uL Immature Plt Fraction (1.1-6.1) % Sodium 150 H (135-145) mmol/L Carbon Dioxide 29.0 H (20.0-27.5) mmol/L BUN 136.0 H* (9.0-27.0) mg/dL Creatinine 2.0 H (0.6-1.5) mg/dL Est GFR (CKD-EPI)AfAm 33.5 L (60.0-200.0) Est GFR (CKD-EPI)NonAf 28.9 L (60.0-200.0) BUN/Creatinine Ratio 68.00 H (12.00-20.00) Ratio Glucose 169 H (70-110) mg/dL POC Glucose (mg/dL) 186 H 259 H (75-99) mg/dL Calcium 8.4 L (8.7-10.3) mg/dL AST 71 H (14-35) U/L ALT 92 H (10-49) U/L Total Protein 4.5 L (6.2-8.2) g/dL Albumin 2.9 L (3.8-4.9) g/dL Assessment and Plan (1) Pancytopenia Narrative/Plan: [place] to be r/t acute infection as work up has not revealed an underlying malignancy/monoclonal gammopathy, platelet disorder, or hemolysis Hgb 8.7, stable. Transfuse for Hgb < 7 WBC 1.5, ANC 1300, no GCSF at this time. ANC >500, afebrile currently. Plt 37,000, no anticoagluation unless plt >50,000 Held prophylactic allopurinol. temporary hold, just to reduce pt exposure to marrow suppressive drugs CBC daily while inpt Current Visit: Yes Status: Acute Priority: High Code(s): D61.818 - OTHER PANCYTOPENIA SNOMED Code(s): 170223113 Plan: Doctor attests: I performed a history and physical examination of this patient, developed impression and plan of care. Discussed with dictator. I agree with dictators note, documented as a scribe.
--- NOTE | 2021-08-20 16:05 | PN ---
PROGRESS NOTE DATE OF SERVICE: 08/19/2021. 89-year-old white male with acute hypoxemic respiratory distress secondary Covid 19, pneumonia and secondary bacterial infection, COPD, CHF, renal insufficiency. His breathing is improving slowly. He is down to 5 L of oxygen, but he has severe leukopenia for which hematology needs to get back and find out what they are going to do. He has severe pancytopenia of unclear etiology. He passed a barium swallow test. He is not aspirating, but he is getting weaker and weaker due to pancytopenia. Cardiovascular S1-S2. Lungs are rales at the bases. Scattered rhonchi. Hematology negative Homans. GI soft. Hematology 2+ edema. ASSESSMENT: 1. Chronic obstructive pulmonary disease. 2. Congestive heart failure. 3. Acute hypoxemic respiratory distress. 4. Atrial fibrillation. 5. Chronic obstructive pulmonary disease. 6. Congestive heart failure. 7. Prognosis guarded. 8. Pancytopenia of unclear etiology, possibly due to Covid 19 virus or some other myelodysplastic disorder. Hematology needs to address this to resolve the pancytopenia. DATE OF SERVICE: 08/19/2021. MMODL / IJN: [id number] /
--- NOTE | 2021-08-20 16:11 | PN ---
PROGRESS NOTE 89-year-old white male states he feels okay. Back is sore, but it is not new. Started to drink fluids and soft foods keeping everything down. He has pancytopenia of severe nature. Temperature 97.5, pulse 51, respiratory 16 to 18, O2 is 87, blood pressure 132/64. Cardiovascular S1, S2. Lungs show rales at the base. Integument shows dry and weak, dryness of the skin with poor skin turgor. White count is 1.59, hemoglobin is 8.7, platelets 237. BUN is 136, creatinine 2.0, carbon dioxide 29, sodium 150. ASSESSMENT: Pancytopenia. They thought it was an acute infection. They ruled out malignancy, monoclonal gammopathy. Platelet disorder or hemoptysis. Hemoglobin is stable. White count 1.5. ANC over 500, it is 1300. They are not going to do anything. They will not give any anticoagulation. We held his allopurinol. Prognosis is guarded. Hematology and Dr. Shaw with renal disease will have to discuss elevated BUN and creatinine, possibly withdrawing some of his increased free water intake, possibly a D5W and keep the Lasix going to heart failure at this point they said. PROGNOSIS: Extremely guarded. MMODL / IJN: [id number] /
[2021-08-20 16:45] LABS: Glucose,Whole Blood 270 mg/dL (75-99)
[2021-08-20] MEDS ORDERED: DEXTROSE 5% IN WATER 1,000 ML IV ONE (19:12)
--- NOTE | 2021-08-20 19:38 | PN ---
PROGRESS NOTE Patient is seen for followup for acute kidney injury. Renal function has been slowly improving. BUN and creatinine continued to decline. Patient's sodium is further elevated today at 150. We have been encouraging him to increase his oral free water intake. PHYSICAL EXAMINATION: On examination today, blood pressure 101/55, heart rate 50 per minute. He is afebrile. Examination of the lower extremities shows edema 1+ bilaterally, currently decreased. Abdomen is soft, nontender. SOUND RECORDIST exam grossly intact. LAB: Show sodium 150, potassium 4.3, BUN 136, serum creatinine 2.0, hemoglobin 8.7 g/dL. ASSESSMENT: 1. Acute kidney injury, acute tubular necrosis, currently improving. Disproportionately elevated BUN secondary to steroids. Continues to improve. 2. Lower extremity edema significantly improved. Patient remains on Lasix which we can continue. 3. Hypernatremia. I will add D5W as the patient has not significantly been able to increase his free water intake. 4. Covid pneumonia slowly improving. 5. Pancytopenia secondary to infection being followed by Hematology. PLAN: Add D5W, continue with the Lasix for now and continue to encourage increased free water intake. I will decrease the Lasix to once a day. MMODL / IJN: [id number] /
[2021-08-20 20:47] LABS: Glucose,Whole Blood 250 mg/dL (75-99)
[2021-08-20] MEDS: ATORVASTATIN 20 MG TAB PO SCH (21:13)
[2021-08-20] MEDS: CHOLECALCIFEROL 25 MCG (1000 IU) TABLET PO SCH (21:14)
[2021-08-20] MEDS: MONTELUKAST 10 MG TAB PO SCH (21:14)
[2021-08-21] MEDS: methylPREDNISolone SOD SUCCI 40 MG/ML 1 ML VIAL IV SCH ×4 (00:12→17:00)
[2021-08-21 06:52] LABS: Glucose,Whole Blood 200 mg/dL (75-99)
[2021-08-21] MEDS: INSULIN ASPART (NovoLOG) 100 UNIT/ML VIAL SQ SCH ×4 (07:39→21:41)
[2021-08-21] MEDS: MIDODRINE 5 MG TAB PO SCH ×3 (07:40→16:52)
[2021-08-21] MEDS: FINASTERIDE 5 MG TAB PO SCH (07:40)
[2021-08-21] MEDS: PANTOPRAZOLE 40 MG TABLET PO SCH (07:40)
[2021-08-21] MEDS: TAMSULOSIN 0.4 MG CAP.ER.24H PO SCH (07:40)
[2021-08-21] MEDS: FUROSEMIDE 10 MG/ML 2 ML VIAL IV SCH (07:40)
[2021-08-21] MEDS: NYSTATIN 100,000 UNIT/ML SUSP 500,000 UNIT/5 ML CUP PO SCH ×4 (07:40→20:11)
[2021-08-21] MEDS: KETOTIFEN 0.025% OPHTH DROPS 5 ML BTL BOTH EYES SCH ×2 (07:41→20:12)
[2021-08-21] MEDS: ASCORBIC ACID 500 MG TAB PO SCH (07:41)
[2021-08-21] MEDS: ZINC SULFATE 220 MG CAP PO SCH (07:41)
[2021-08-21] MEDS: METOPROLOL TARTRATE 25 MG TAB PO SCH ×2 (07:41→20:11)
[2021-08-21] MEDS: guaiFENesin 600 MG TABLET.ER PO SCH ×2 (07:41→20:11)
[2021-08-21] MEDS: AMIODARONE 100 MG TAB PO SCH (07:42)
[2021-08-21] MEDS: CHOLESTYRAMINE (WITH SUGAR) 4 GM PACKET PO SCH ×2 (07:43→17:00)
[2021-08-21 10:02] LABS: Basophils # (A) 0 X 10*3/uL (0.00-0.10); Basophils % (A) 0 %; Eosinophils # (A) 0 X 10*3/uL (0.04-0.35); Eosinophils % (A) 0 %; HCT 27.6 % (39.6-50.0); HGB 8.4 g/dL (13.0-17.0); Lymphocytes # (A) 0.09 X 10*3/uL (0.90-5.00); Lymphocytes % (A) 5.4 %; MCHC 30.4 g/dL (32.0-37.0); MCV 98.6 fL (80.0-97.0); Mean Platelet Volume 11.8 fL (9.5-12.2); Monocytes # (A) 0.13 X 10*3/uL (0.20-1.00); Monocytes % (A) 7.8 %; Neutrophils # (A) 1.45 X 10*3/uL (1.80-7.70); Neutrophils % (A) 86.8 %; Platelet Count 39 X 10*3/uL (140-440); RDW 16.3 % (11.5-14.5); WBC 1.67 X 10*3/uL (4.50-10.00)
[2021-08-21] MEDS: ALBUTEROL HFA INHALER INHALATION PRN ×3 (10:03→17:45)
[2021-08-21 10:34] LABS: African American GFR (CKD) 35.7 (60.0-200.0); Albumin 2.7 g/dL (3.8-4.9); Albumin/Globulin Ratio 1.69 (1.60-3.17); Anion Gap 11.9 mmol/L (10.00-18.00); BUN/Creat Ratio 74.21 Ratio (12.00-20.00); Calcium 8.3 mg/dL (8.7-10.3); Carbon Dioxide 27.1 mmol/L (20.0-27.5); Globulin 1.6 g/dL (1.6-3.3); Non-African American GFR(CKD) 30.8 (60.0-200.0); Total Bilirubin 0.8 mg/dL (0.30-1.20); Total Protein 4.3 g/dL (6.2-8.2)
[2021-08-21] MEDS ORDERED: DEXTROSE 5% IN WATER 1,000 ML IV ONE (10:55)
--- NOTE | 2021-08-21 11:08 | P.CONS ---
History of Present Illness - Reason for Consult Consult date: 08/21/21 wound care - History of Present Illness This is an 89-year-old patient being seen on 4 S. for nonhealing ulcerations to the right and left buttocks. Patient states that the ulcerations come and go he has had them for a few months now. They have progressively gotten worse since he has been in the hospital. At this time there is no dressings to the site. The left buttocks measures approximately 4 x 4 x 0.1 cm with minimal granulation seen within the wound bed eschar and nonviable tissue noted wound edges are attached to the wound base and there is no tunneling or undermining. The right buttocks has a cluster of 2 ulcerations measuring approximately 2 x 2 by 0.1 cm. There is no tunneling or undermining noted. Wound edges are attached to the wound base. The wound bed shows minimal granulation with eschar and nonviable tissue. Both have fat layer exposure. The periwound shows excoriation. Review Of Systems: Constitutional: No fever, no chills, no night sweats. No weight change. No weakness, fatigue or lethargy. No daytime sleepiness. Integumentary:reports wounds, no lesions. No rash or pruritus. No unusual bruising. No change in hair or nails. Physical exam: General Appearance: Alert, cooperative, no distress, appears stated age. Skin: See HPI all other Skin color, texture, tugor normal, no rashes or lesions. Neurologic: Alert oriented x3 Assessment: 1. Right buttocks stage II pressure ulcer 2. Left buttock stage II pressure ulcer Plan: 1.Right/Left buttocks: Apply honey alginate, saline moist gauze, triad to intact skin, and sacram border foam. Change Wednesday, and Wednesday. Turn patient 2 qhrs, continue to offload, use air filled cushion when sitting. Thank you for the consultation any questions please contact the wound care center DNP note has been reviewed and discussed with Dr. Arita and the impression and plan of care has been directed as dictated. Past Medical History Past Medical History: Coronary Artery Disease (CAD), Cancer, COPD, GERD/Reflux, Hearing Disorder / Deafness, Hyperlipidemia, Osteoarthritis (OA), Pneumonia, Prostate Disorder, Renal Disease, Sleep Apnea/CPAP/BIPAP, Thyroid Disorder Additional Past Medical History / Comment(s): GOUT; not currently using CPAP, see Dr Sanchez H&P, edema left lower leg, bruises easily, hx skin cancer Last Myocardial Infarction Date:: 2001 History of Any Multi-Drug Resistant Organisms: None Reported Past Surgical History: AICD, Coronary Bypass/CABG, Heart Catheterization With Stent, Hernia Repair, Orthopedic Surgery, Pacemaker Additional Past Surgical History / Comment(s): 4 Vessel CABG 2002. 2 STENTS 2001. HAS 2 PINS IN RT ACHILLES. parathyroid surgery, AICD/PACEMAKER, [facility]. 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, recent biopsy left ear, maximus cataracts Past Anesthesia/Blood Transfusion Reactions: No Reported Reaction Date of Last Stent Placement:: UNK Type of Cardiac Device: Permanent Pacemaker, AICD Device Placement Date:: unknown Past Psychological History: No Psychological Hx Reported Past Alcohol Use History: None Reported Past Drug Use History: None Reported - Past Family History Father Family Medical History: Congestive Heart Failure (CHF), Diabetes Mellitus Additional Family Medical History / Comment(s): AT AGEG 66 FROM CHF Mother Family Medical History: COPD Additional Family Medical History / Comment(s): AT AGE FROM ANEURYSM Sister(s) Family Medical History: Cancer Medications and Allergies Home Medications Medication Instructions Recorded Confirmed Type Allopurinol [Zyloprim] 300 mg PO DAILY 07/22/21 07/22/21 History Amiodarone [Cordarone] 200 mg PO DAILY 07/22/21 07/22/21 History Apixaban [Eliquis] 2.5 mg PO BID 07/22/21 07/22/21 History Atorvastatin [Lipitor] 20 mg PO HS 07/22/21 07/22/21 History Cholecalciferol [Vitamin D3 (25 25 mcg PO DAILY 07/22/21 07/22/21 History Mcg = 1000 Iu)] Empagliflozin [Jardiance] 10 mg PO DAILY 07/22/21 07/22/21 History Finasteride [Proscar] 5 mg PO DAILY 07/22/21 07/22/21 History Furosemide [Lasix] 20 mg PO DAILY 07/22/21 07/22/21 History Ipratropium [place] [Atrovent Hfa] 2 puff INHALATION RT-DAILY 07/22/21 07/22/21 History Loratadine [Claritin] 10 mg PO DAILY 07/22/21 07/22/21 History Magnesium Oxide [Mag-Ox] 400 mg PO DAILY 07/22/21 07/22/21 History Metoprolol Succinate [Toprol XL] 25 mg PO DAILY 07/22/21 07/22/21 History Midodrine [ProAmatine] 5 mg PO TID 07/22/21 07/22/21 History Montelukast [Singulair] 10 mg PO DAILY 07/22/21 07/22/21 History Olopatadine HCl [Pataday] 1 drop BOTH EYES DAILY 07/22/21 07/22/21 History Omeprazole [PriLOSEC] 20 mg PO AC-BRKFST 07/22/21 07/22/21 History Tamsulosin [Flomax] 0.4 mg PO BID 07/22/21 07/22/21 History Allergies Allergy/AdvReac Type Severity Reaction Status Date / Time smoke Allergy Dyspnea Uncoded 07/22/21 13:49 Physical Exam Vitals: Vital Signs Temp Pulse Resp BP Pulse Ox 08/21/21 09:36 97.4 F L 51 L 108/51 95 08/21/21 07:46 121/53 08/21/21 06:00 97.4 F L 50 L 20 106/63 91 L 08/21/21 02:00 97.4 F L 50 L 21 124/61 92 L 08/20/21 21:23 97.5 F L 50 L 20 99/55 94 L 08/20/21 17:34 97.5 F L 49 L 17 114/63 97 08/20/21 14:00 97.4 F L 50 L 17 101/55 95 Intake and Output 08/20/21 08/21/21 08/21/21 22:59 06:59 14:59 Output Total 925 1400 Balance -925 -1400 Output: Urine 925 1400 Other: Voiding Method Indwelling Catheter Indwelling Catheter # Bowel Movements 1 Results CBC & Chem 7: 08/21/21 06:13 08/21/21 06:13 Labs: Abnormal Lab Results - Last 24 Hours (Table) 08/20/21 08/20/21 08/20/21 Range/Units 06:19 06:19 11:55 WBC 1.59 L (4.50-10.00) X 10*3/uL RBC 2.94 L (4.40-5.60) X 10*6/uL Hgb 8.7 L (13.0-17.0) g/dL Hct 29.2 L (39.6-50.0) % MCV 99.3 H (80.0-97.0) fL MCHC 29.8 L (32.0-37.0) g/dL RDW 16.7 H (11.5-14.5) % Plt Count 37 L (140-440) X 10*3/uL Plt Count Comment DECREASED A Neutrophils # 1.34 L (1.80-7.70) X 10*3/uL Lymphocytes # 0.14 L (0.90-5.00) X 10*3/uL Monocytes # 0.10 L (0.20-1.00) X 10*3/uL Eosinophils # 0 L (0.04-0.35) X 10*3/uL Immature Plt Fraction 8.7 H (1.1-6.1) % Sodium 150 H (135-145) mmol/L Carbon Dioxide 29.0 H (20.0-27.5) mmol/L BUN 136.0 H* (9.0-27.0) mg/dL Creatinine 2.0 H (0.6-1.5) mg/dL Est GFR (CKD-EPI)AfAm 33.5 L (60.0-200.0) Est GFR (CKD-EPI)NonAf 28.9 L (60.0-200.0) BUN/Creatinine Ratio 68.00 H (12.00-20.00) Ratio Glucose 169 H (70-110) mg/dL POC Glucose (mg/dL) 259 H (75-99) mg/dL Calcium 8.4 L (8.7-10.3) mg/dL AST 71 H (14-35) U/L ALT 92 H (10-49) U/L Total Protein 4.5 L (6.2-8.2) g/dL Albumin 2.9 L (3.8-4.9) g/dL 08/20/21 08/20/21 08/21/21 Range/Units 16:42 20:46 06:13 WBC 1.67 L (4.50-10.00) X 10*3/uL RBC 2.80 L (4.40-5.60) X 10*6/uL Hgb 8.4 L (13.0-17.0) g/dL Hct 27.6 L (39.6-50.0) % MCV 98.6 H (80.0-97.0) fL MCHC 30.4 L (32.0-37.0) g/dL RDW 16.3 H (11.5-14.5) % Plt Count 39 L (140-440) X 10*3/uL Plt Count Comment A Neutrophils # 1.45 L (1.80-7.70) X 10*3/uL Lymphocytes # 0.09 L (0.90-5.00) X 10*3/uL Monocytes # 0.13 L (0.20-1.00) X 10*3/uL Eosinophils # 0 L (0.04-0.35) X 10*3/uL Immature Plt Fraction 8.7 H (1.1-6.1) % Sodium (135-145) mmol/L Carbon Dioxide (20.0-27.5) mmol/L BUN (9.0-27.0) mg/dL Creatinine (0.6-1.5) mg/dL Est GFR (CKD-EPI)AfAm (60.0-200.0) Est GFR (CKD-EPI)NonAf (60.0-200.0) BUN/Creatinine Ratio (12.00-20.00) Ratio Glucose (70-110) mg/dL POC Glucose (mg/dL) 270 H 250 H (75-99) mg/dL Calcium (8.7-10.3) mg/dL AST (14-35) U/L ALT (10-49) U/L Total Protein (6.2-8.2) g/dL Albumin (3.8-4.9) g/dL 08/21/21 08/21/21 Range/Units 06:13 06:50 WBC (4.50-10.00) X 10*3/uL RBC (4.40-5.60) X 10*6/uL Hgb (13.0-17.0) g/dL Hct (39.6-50.0) % MCV (80.0-97.0) fL MCHC (32.0-37.0) g/dL RDW (11.5-14.5) % Plt Count (140-440) X 10*3/uL Plt Count Comment Neutrophils # (1.80-7.70) X 10*3/uL Lymphocytes # (0.90-5.00) X 10*3/uL Monocytes # (0.20-1.00) X 10*3/uL Eosinophils # (0.04-0.35) X 10*3/uL Immature Plt Fraction (1.1-6.1) % Sodium 146 H (135-145) mmol/L Carbon Dioxide (20.0-27.5) mmol/L BUN 141.0 H* (9.0-27.0) mg/dL Creatinine 1.9 H (0.6-1.5) mg/dL Est GFR (CKD-EPI)AfAm 35.7 L (60.0-200.0) Est GFR (CKD-EPI)NonAf 30.8 L (60.0-200.0) BUN/Creatinine Ratio 74.21 H (12.00-20.00) Ratio Glucose 160 H (70-110) mg/dL POC Glucose (mg/dL) 200 H (75-99) mg/dL Calcium 8.3 L (8.7-10.3) mg/dL AST 65 H (14-35) U/L ALT 94 H (10-49) U/L Total Protein 4.3 L (6.2-8.2) g/dL Albumin 2.7 L (3.8-4.9) g/dL Assessment and Plan (1) Pressure ulcer of right buttock, stage 2 Current Visit: Yes Status: Acute Code(s): L89.312 - PRESSURE ULCER OF RIGHT BUTTOCK, STAGE 2 SNOMED Code(s): 48500912640711997 (2) Pressure ulcer of left buttock, stage 2 Current Visit: Yes Status: Acute Code(s): L89.322 - PRESSURE ULCER OF LEFT BUTTOCK, STAGE 2 SNOMED Code(s): 83473506455277061
[2021-08-21] MEDS ORDERED: HYDROPHILIC CREAM 180 GM TUBE TOPICAL SCH (11:15)
[2021-08-21 11:38] LABS: Glucose,Whole Blood 226 mg/dL (75-99)
--- NOTE | 2021-08-21 15:48 | P.PN ---
Subjective Progress Note Date: 08/20/21 Principal diagnosis: Acute on chronic hypoxic respiratory failure Pneumonia Blood stained sputum secondary pneumonia Generalized weakness Fall related to weakness COVID-19 infection GERD BPH Dyslipidemia Coronary artery disease with history of CABG and stent placement 08/20/2021, patient seen eval examined during the rounds labs reviewed medications reviewed care plan discussed, respiratory status remained stable, however labs show significant rising BUN/creatinine, white cell count low, patient is afebrile, CN is down to 3 L sats are mid 90s 08/18/2021, patient seen eval examined during the rounds respiratory status remains stable, denies any chest pain, oxygen gradually have been titrated down now on 4 L saturation is 96%, now white cell count is 1200 late rate count 39,000, BUN/creatinine continue of 155/2.43 service have been following 08/17/2021, patient seen and evaluated examined, patient remains afebrile, labs from today however is pending but yesterday BUN up to 151. Now 2.76 which remains stable, platelet count is 36,000, patient remains on 5 L sats however her variable 08/16/2021, patient is doing overall fairly well, labs such as being drawn, he is on 5 L oxygen breathing comfortably, denies any chest pain cough or sputum production, he remains afebrile with saturation 93%, 08/15/2021, respiratory rate remained stable, awake and alert breathing comfortably, denies any chest pain shortness of breath remains stable, oxygen is down to 5 L, labs from today reviewed BUN is 128 creatinine of 2.9 remains stable, platelet count is 33,000 also however is stable, 08/14/2021, patient seen and evaluated examined awake and alert breathing c omfortably on 5 L oxygen, thoracentesis canceled by interventional radiology as the amount of fluid have been reduced will continue supportive care, BUN continued to climb up is 127 creatinine is 2.8, platelet count is 37,000 stable hemoglobin 08/13/2021, patient seen eval examined during the rounds labs reviewed medications reviewed, patient has progressive thrombocytopenia, IR refuse to do thoracentesis which is on hold, Dr. Shaw from hematology has been consulted, labs not done today, patient oxygen demand continued to improve currently on 5 L nasal cannula, denies any chest pain ongoing shortness of breath especially on exertion however is present dry nonproductive cough is present, patient on the direct oral anticoagulant which is currently on hold, IV steroids and antibiotics broad spectrum along with BARICITINAB tolerating well 08/12/2021, patient seen eval examined during the rounds labs reviewed medications reviewed care plan discussed, respiratory status the much better today FiO2 decreased to 7 L rhonchi or 13 L now, patient feeling less short of breath sitting upright, patient underwent ultrasound of the chest slight increase in right-sided pleural effusion seen patient remains on IV Lasix not responding, we will consult interventional radiology for right-sided thora centesis 08/11/2021, patient seen eval examined during the rounds labs reviewed medications reviewed care plan discussed, respiratory status slightly better FiO2 decreased down from 15 needed to 13 L breathing more comfortably, have early looked on ultrasound of the chest bilateral, small to moderate pleural effusion bilaterally is present, we'll continue to hold on the direct anticoagulant, we will hold thoracentesis repeat ultrasound of the chest in the morning, current for pneumonia as well as COVID-19 infection appears to be working O follow closely 08/10/2021, patient seen eval reexamined during the rounds labs reviewed medications reviewed care plan discussed with the patient, as well as the the RN at length, patient continued to be acutely hypoxic FiO2 have been increased to 15 L high flow oxygen, renal functions remains on the poor side without any significant change, bilateral pleural effusion were seen on radiographic study patient underwent ultrasound of the chest which I reviewed it the hard copy there is a bilateral pleural effusion small to moderate bilaterally is present but however fluid is more accessible on the right side on the left side it's in the form of somewhat in close pocket, patient is on anticoagulation with liquids will hold it lunch to right-sided thoracentesis tomorrow Concern about hypoxia and desaturation acute worsening in the last 72 hours, discussed with the RN as well as the pharmacy, patient will benefit from Baricitinib discussed with pharmacy about prerequisite, labs ordered for d- dimer, C-reactive protein, LDH 08/09/2021, examined during the rounds labs reviewed medications reviewed care plan discussed, respiratory status still marginal patient oxygen requirement is now 9 L now which have been significantly worse, patient underwent computed tomography scan of the chest finding reviewed, mild to moderate bilateral pleural effusion is seen, cardiomegaly, 4.6 cm ascending aorta, finding consistent with congestive heart failure however cold with associated disease process cannot be excluded, would recommend repeat the Covid testing before initiation and therapeutic trial Baricitinib 08/08/2021, patient relatively more short of breath than baseline, oxygen requirement has increased though, creatinine, patient remains afebrile, oxygen requirement now is 9 L, patient is being planned for computed tomography scan of the chest, chest x-ray positive for edema as well as bilateral infiltrate 08/06/2021, patient seen and evaluated examined, respiratory status remained stable, oxygen saturation on 3 L nasal cannula is 91% for pressure is 119/56 patient remains afebrile, tolerating bronchodilator as well, remains on low-dose diuretic anticoagulant, patient is off of antibiotics, on diuretics, Hexadrol milligrams daily 08/05/2021, patient seen eval examined during the rounds labs reviewed medications reviewed care plan discussed, patient remains 2-3 L oxygen, currently on 3 L with the saturation 92%, afebrile, 08/04/2021, patient seen eval examined during the rounds labs reviewed medications reviewed sitting upright in chair breathing comfortably, remains on 3 L oxygen, intermittent cough is present mostly is dry now, meds reviewed, remains on bronchodilator, direct oral anticoagulant, oral Decadron, off of antibiotics now him a BUN/creatinine is 103/2.52, sugars 232, last covid testing was performed on the of this month we'll repeat as symptoms significantly improved, and we'll help placement 08/01/2021, patient seen and evaluated examined during the rounds labs reviewed medications reviewed care plan discussed with the staff and patient at length, hemodynamic status stable however blood pressure slightly high, just received his medications from this morning, intermittent cough is present sputum is mucoid thick, patient currently on 2 L oxygen, independently has been going back and forth in room air oxygen, patient has been switched to oral Augmentin by primary service, remains on direct oral anticoagulant, patient lives by himself at home, extremely weak and requires support to stand currently in the process of being evaluated for placement ECF for short-term rehab 07/31/2021, patient seen eval examined during the rounds labs reviewed medications reviewed care plan discussed, respiratory status continued to be stable, patient now is on room air breathing comfortably, feet, does have cough sputum is light yellow 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, PERRL no hemoptysis has been seen, patient is off of IV steroids for now on Decadron for COVID-19 pneumonia inflammation, she remains on broad-spectrum antibiotics with Zosyn for bilateral basal pneumonia which clinically has been improving, but however still needs it, 07/30/2021, patient seen eval examined during the rounds labs reviewed [facility] reviewed care plan discussed, respiratory status remains stable intermittently patient has been on room air as well, cough is associated with sputum which is light in color and appearance no more hemoptysis seen, today's labs are reviewed white cell count is 7000 hemoglobin and hematocrit 12 and 39, platelets are 1 46,000, potassium is 5.3 showing a downward trend BUN/creatinine elevated but remains stable 82/2.51, patient back on Hexadrol off of IV steroids 07/29/2021, patient seen eval examined during the rounds labs reviewed medications reviewed, is still short of breath on activity and exertion cough is associated with sputum but slight and now no more hemoptysis is seen, BUN/c reatinine is up to 83/2.47, CBC stable, oxygen saturation 97% on 2 L nasal cannula hemodynamic status stable, he remains on IV steroids breathing treatments antibiotics and steroids appeared to be responding well also has COVID-19 infection 07/28/2021, patient seen eval reexamined during the rounds labs reviewed medications reviewed still have ongoing cough on however sputum is fiction and nonfiction prose writer 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, no more hemoptysis seen, Sputum culture no pathologic organism have been seen, patient remains afebrile, with oxygen saturation of 91-92% room air, uterus chest x-ray shows slight improvement in bilateral basal infiltrate, labs reviewed today white cell count within normal limit potassium is 5.7 BUN/creatinine is 77 and 2.4, 07/25/2021, patient seen eval examined during the rounds labs reviewed medications reviewed, patient has intermittent cough and he is producing clear to yellow sputum mixed with intermittent stye streaks of blood, more short of breath on 2 L oxygen, discussed with infectious disease services will start patient on IV steroids antibiotics send sputum for Gram stain and culture 07/24/2021, patient seen eval examined during the rounds overall no significant change in saturation 95% on room air, patient remains on oral steroids Decadron 6 mg daily, tolerating well today's x-ray reviewed some streak-like infiltrate at the bases cannot be excluded or perihilar infiltrate 07/23/2021, patient seen eval examined in follow-up, respiratory status not much change, chest x-ray reviewed possible interstitial pattern cannot be excluded, patient remains on room air as saturation 94% with stable hemodynamics, blood pressure is the 110/60, patient remains on bronchodilator continuation of home medications including liquids along with daily 6 mg of Decadron, patient has been restarted on her midodrine Patient is a 89-year-old male came into the hospital with generalized weakness and fall related to weakness, patient sees Dr. Yadav for primary care activities, cagle denies any night sweats fever or chills denies any chest pain or radiation of pain, no fever no bowel or bladder related problem, patient does have cough with sputum production his labs were significant for a hemoglobin of 12.6, platelet count of 10 7000, BUN/creatinine 56/2.27, glucose is 210, troponin 0.055 0.0 6 AM 0.047, oxygen saturation is 90% to 95% room air improved to, "test came back positive, chest x-ray and rib x-ray stable pacemaker and wires no infiltrate or heart failure identified no pneumothorax, currently patient is treated with bronchodilators continuation of home medications including amiodarone and requests primary History is significant for coronary artery disease, COPD, GERD, deafness, dyslipidemia, degenerative joint disease osteoarthritis history of pneumonia and sleep apnea Past surgical history significant for a bypass surgery, cardiac cath and stent placement and hernia repair orthopedic repair history of pacemaker insertion, stents no history of smoking through abuse and substance use Objective - Vital Signs Vital signs: Vital Signs Temp 97.4 F L 08/20/21 14:00 Pulse 50 L 08/20/21 14:00 Resp 17 08/20/21 14:00 BP 101/55 08/20/21 14:00 Pulse Ox 95 08/20/21 14:00 Intake & Output 08/19/21 08/20/21 08/20/21 18:59 06:59 18:59 Output Total 138 1100 675 Balance -031 -4014 -631 Weight 76 kg Output: Urine 597 1100 675 Other: Voiding Method External Catheter Diaper Diaper Incontinent Incontinent External Catheter External Catheter - Exam - Exam - Constitutional General appearance: average body habitus, cooperative - EENT Eyes: PERRLA Ears: bilateral: normal - Neck Carotids: bilateral: upstroke normal Thyroid: bilateral: normal size - Respiratory Respiratory: bilateral: CTA - Cardiovascular Rhythm: regular Heart sounds: normal: S1, S2 - Gastrointestinal General gastrointestinal: soft - Neurologic Neurologic: CNII-XII intact - Musculoskeletal Musculoskeletal: gait normal, generalized weakness, strength equal bilaterally - Psychiatric Psychiatric: A&O x's 3, appropriate affect, intact judgment & insight - Labs CBC & Chem 7: 08/21/21 06:13 08/21/21 06:13 Labs: Abnormal Lab Results - Last 24 Hours (Table) 08/19/21 08/20/21 08/20/21 Range/Units 19:50 06:19 06:19 WBC 1.59 L (4.50-10.00) X 10*3/uL RBC 2.94 L (4.40-5.60) X 10*6/uL Hgb 8.7 L (13.0-17.0) g/dL Hct 29.2 L (39.6-50.0) % MCV 99.3 H (80.0-97.0) fL MCHC 29.8 L (32.0-37.0) g/dL RDW 16.7 H (11.5-14.5) % Plt Count 37 L (140-440) X 10*3/uL Plt Count Comment DECREASED A Neutrophils # 1.34 L (1.80-7.70) X 10*3/uL Lymphocytes # 0.14 L (0.90-5.00) X 10*3/uL Monocytes # 0.10 L (0.20-1.00) X 10*3/uL Eosinophils # 0 L (0.04-0.35) X 10*3/uL Immature Plt Fraction 8.7 H (1.1-6.1) % Sodium 150 H (135-145) mmol/L Carbon Dioxide 29.0 H (20.0-27.5) mmol/L BUN 136.0 H* (9.0-27.0) mg/dL Creatinine 2.0 H (0.6-1.5) mg/dL Est GFR (CKD-EPI)AfAm 33.5 L (60.0-200.0) Est GFR (CKD-EPI)NonAf 28.9 L (60.0-200.0) BUN/Creatinine Ratio 68.00 H (12.00-20.00) Ratio Glucose 169 H (70-110) mg/dL POC Glucose (mg/dL) 158 H (75-99) mg/dL Calcium 8.4 L (8.7-10.3) mg/dL AST 71 H (14-35) U/L ALT 92 H (10-49) U/L Total Protein 4.5 L (6.2-8.2) g/dL Albumin 2.9 L (3.8-4.9) g/dL 08/20/21 08/20/21 08/20/21 Range/Units 07:04 11:55 16:42 WBC (4.50-10.00) X 10*3/uL RBC (4.40-5.60) X 10*6/uL Hgb (13.0-17.0) g/dL Hct (39.6-50.0) % MCV (80.0-97.0) fL MCHC (32.0-37.0) g/dL RDW (11.5-14.5) % Plt Count (140-440) X 10*3/uL Plt Count Comment Neutrophils # (1.80-7.70) X 10*3/uL Lymphocytes # (0.90-5.00) X 10*3/uL Monocytes # (0.20-1.00) X 10*3/uL Eosinophils # (0.04-0.35) X 10*3/uL Immature Plt Fraction (1.1-6.1) % Sodium (135-145) mmol/L Carbon Dioxide (20.0-27.5) mmol/L BUN (9.0-27.0) mg/dL Creatinine (0.6-1.5) mg/dL Est GFR (CKD-EPI)AfAm (60.0-200.0) Est GFR (CKD-EPI)NonAf (60.0-200.0) BUN/Creatinine Ratio (12.00-20.00) Ratio Glucose (70-110) mg/dL POC Glucose (mg/dL) 186 H 259 H 270 H (75-99) mg/dL Calcium (8.7-10.3) mg/dL AST (14-35) U/L ALT (10-49) U/L Total Protein (6.2-8.2) g/dL Albumin (3.8-4.9) g/dL Assessment and Plan Assessment: Acute hypoxic history failure Acute on chronic kidney disease Thrombocytopenia Generalized weakness Fall related to weakness Acute on chronic kidney injury COVID-19 infection Bilateral mild pleural effusion interventional radiology felt not safe and small in amount we'll continue to monitor and observe Intermittent hemoptysis, improving and resolved GERD BPH Dyslipidemia Coronary artery disease with history of CABG and stent placement Plan: We'll check pro-calcitonin, and chest x-ray Monitor and observe off of Baricitinib, per pharmacy recommendation Interventional radiology felt that fluid can and cannot be removed safely, besides a small in amount Computed tomography scan of the chest reviewed Continue bronchodilators Reviewed results of sputum for Gram stain and culture Continue deep breathing sense incentive spirometry PT OT evaluation ECF/rehab evaluation for placement Renal functions remain elevated but stable Long-term prognosis poor Time with Patient: Greater than 30
--- NOTE | 2021-08-21 15:50 | P.PN ---
Subjective Progress Note Date: 08/21/21 Principal diagnosis: Acute on chronic hypoxic respiratory failure Pneumonia Blood stained sputum secondary pneumonia Generalized weakness Fall related to weakness COVID-19 infection GERD BPH Dyslipidemia Coronary artery disease with history of CABG and stent placement 08/21/2021, patient seen and evaluated examined during the rounds labs reviewed medications reviewed care plan discussed, patient remains on 3 L, oxygen saturation is mid 90s, labs from today reviewed white cell count is 1600, hemoglobin hematocrit is 50.4) 7, platelet count is 17,000, sodium is slightly up on warts 6 chemistry otherwise normal but however BNP is 141/1.9 renal services has been following 08/20/2021, patient seen eval examined during the rounds labs reviewed medications reviewed care plan discussed, respiratory status remained stable, however labs show significant rising BUN/creatinine, white cell count low, patient is afebrile, CN is down to 3 L sats are mid 90s 08/18/2021, patient seen eval examined during the rounds respiratory status remains stable, denies any chest pain, oxygen gradually have been titrated down now on 4 L saturation is 96%, now white cell count is 1200 late rate count 39,000, BUN/creatinine continue of 155/2.43 service have been following 08/17/2021, patient seen and evaluated examined, patient remains afebrile, labs from today however is pending but yesterday BUN up to 151. Now 2.76 which remains stable, platelet count is 36,000, patient remains on 5 L sats however her variable 08/16/2021, patient is doing overall fairly well, labs such as being drawn, he is on 5 L oxygen breathing comfortably, denies any chest pain cough or sputum production, he remains afebrile with saturation 93%, 08/15/2021, respiratory rate remained stable, awake and alert breathing comfortably, denies any chest pain shortness of breath remains stable, oxygen is down to 5 L, labs from today reviewed BUN is 128 creatinine of 2.9 remains stable, platelet count is 33,000 also however is stable, 08/14/2021, patient seen and evaluated examined awake and alert breathing comfortably on 5 L oxygen, thoracentesis canceled by interventional radiology as the amount of fluid have been reduced will continue supportive care, BUN continued to climb up is 127 creatinine is 2.8, platelet count is 37,000 stable hemoglobin 08/13/2021, patient seen eval examined during the rounds labs reviewed medications reviewed, patient has progressive thrombocytopenia, IR refuse to do thoracentesis which is on hold, Dr. Shaw from hematology has been consulted, labs not done today, patient oxygen demand continued to improve currently on 5 L nasal cannula, denies any chest pain ongoing shortness of breath especially on exertion however is present dry nonproductive cough is present, patient on the direct oral anticoagulant which is currently on hold, IV steroids and antibiotic s broad spectrum along with BARICITINAB tolerating well 08/12/2021, patient seen eval examined during the rounds labs reviewed medications reviewed care plan discussed, respiratory status the much better today FiO2 decreased to 7 L rhonchi or 13 L now, patient feeling less short of breath sitting upright, patient underwent ultrasound of the chest slight increase in right-sided pleural effusion seen patient remains on IV Lasix not responding, we will consult interventional radiology for right-sided thoracentesis 08/11/2021, patient seen eval examined during the rounds labs reviewed medications reviewed care plan discussed, respiratory status slightly better FiO2 decreased down from 15 needed to 13 L breathing more comfortably, have early looked on ultrasound of the chest bilateral, small to moderate pleural effusion bilaterally is present, we'll continue to hold on the direct anticoagul ant, we will hold thoracentesis repeat ultrasound of the chest in the morning, current for pneumonia as well as COVID-19 infection appears to be working O follow closely 08/10/2021, patient seen eval reexamined during the rounds labs reviewed medications reviewed care plan discussed with the patient, as well as the the RN at length, patient continued to be acutely hypoxic FiO2 have been increased to 15 L high flow oxygen, renal functions remains on the poor side without any significant change, bilateral pleural effusion were seen on radiographic study patient underwent ultrasound of the chest which I reviewed it the hard copy there is a bilateral pleural effusion small to moderate bilaterally is present but however fluid is more accessible on the right side on the left side it's in the form of somewhat in close pocket, patient is on anticoagulation with liquids will hold it lunch to right-sided thoracentesis tomorrow Concern about hypoxia and desaturation acute worsening in the last 72 hours, discussed with the RN as well as the pharmacy, patient will benefit from Baricitinib discussed with pharmacy about prerequisite, labs ordered for d- dimer, C-reactive protein, LDH 08/09/2021, examined during the rounds labs reviewed medications reviewed care plan discussed, respiratory status still marginal patient oxygen requirement is now 9 L now which have been significantly worse, patient underwent computed tomography scan of the chest finding reviewed, mild to moderate bilateral p leural effusion is seen, cardiomegaly, 4.6 cm ascending aorta, finding consistent with congestive heart failure however cold with associated disease process cannot be excluded, would recommend repeat the Covid testing before initiation and therapeutic trial Baricitinib 08/08/2021, patient relatively more short of breath than baseline, oxygen requirement has increased though, creatinine, patient remains afebrile, oxygen requirement now is 9 L, patient is being planned for computed tomography scan of the chest, chest x-ray positive for edema as well as bilateral infiltrate 08/06/2021, patient seen and evaluated examined, respiratory status remained stable, oxygen saturation on 3 L nasal cannula is 91% for pressure is 119/56 patient remains afebrile, tolerating bronchodilator as well, remains on low-dose diuretic anticoagulant, patient is off of antibiotics, on diuretics, Hexadrol milligrams daily 08/05/2021, patient seen eval examined during the rounds labs reviewed medications reviewed care plan discussed, patient remains 2-3 L oxygen, currently on 3 L with the saturation 92%, Ms. afebrile, 08/04/2021, patient seen eval examined during the rounds labs reviewed medications reviewed sitting upright in chair breathing comfortably, remains on 3 L oxygen, intermittent cough is present mostly is dry now, meds reviewed, remains on bronchodilator, direct oral anticoagulant, oral Decadron, off of antibiotics now him a BUN/creatinine is 103/2.52, sugars 232, last covid testing was performed on the of this month we'll repeat as symptoms significantly improved, and we'll help placement 08/01/2021, patient seen and evaluated examined during the rounds labs reviewed medications reviewed care plan discussed with the staff and patient at length, hemodynamic status stable however blood pressure slightly high, just received his medications from this morning, intermittent cough is present sputum is mucoid thick, patient currently on 2 L oxygen, independently has been going back and forth in room air oxygen, patient has been switched to oral Augmentin by primary service, remains on direct oral anticoagulant, patient lives by himself at home, extremely weak and requires support to stand currently in the process of being evaluated for placement ECF for short-term rehab 07/31/2021, patient seen eval examined during the rounds labs reviewed medications reviewed care plan discussed, respiratory status continued to be stable, patient now is on room air breathing comfortably, feet, does have cough sputum is light yellow 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, PERRL no hemoptysis has been seen, patient is off of IV steroids for now on Decadron for COVID-19 pneumonia inflammation, she remains on broad-spectrum antibiotics with Zosyn for bilateral basal pneumonia which clinically has been improving, but however still needs it, 07/30/2021, patient seen eval examined during the rounds labs reviewed medications reviewed care plan discussed, respiratory status remains stable intermittently patient has been on room air as well, cough is associated with sputum which is light in color and appearance no more hemoptysis seen, today's labs are reviewed white cell count is 7000 hemoglobin and hematocrit 12 and 39, platelets are 1 46,000, potassium is 5.3 showing a downward trend BUN/creatinine elevated but remains stable 82/2.51, patient back on Hexadrol off of IV steroids 07/29/2021, patient seen eval examined during the rounds labs reviewed medications reviewed, is still short of breath on activity and exertion cough is associated with sputum but slight and now no more hemoptysis is seen, BUN/creatinine is up to 83/2.47, CBC stable, oxygen saturation 97% on 2 L nasal cannula hemodynamic status stable, he remains on IV steroids breathing treatments antibiotics and steroids appeared to be responding well also has COVID-19 infection 07/28/2021, patient seen eval reexamined during the rounds labs reviewed medications reviewed still have ongoing cough on however sputum is city constable 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, no more hemoptysis seen, Sputum culture no pathologic organism have been seen, patient remains afebrile, with oxygen saturation of 91-92% room air, uterus chest x-ray shows slight improvement in bilateral basal infiltrate, labs reviewed today white cell count within normal limit potassium is 5.7 BUN/creatinine is 77 and 2.4, 07/25/2021, patient seen eval examined during the rounds labs reviewed medications reviewed, patient has intermittent cough and he is producing clear to yellow sputum mixed with intermittent stye streaks of blood, more short of breath on 2 L oxygen, discussed with infectious disease services will start patient on IV steroids antibiotics send sputum for Gram stain and culture 07/24/2021, patient seen eval examined during the rounds overall no significant change in saturation 95% on room air, patient remains on oral steroids Decadron 6 mg daily, tolerating well today's x-ray reviewed some streak-like infiltrate at the bases cannot be excluded or perihilar infiltrate 07/23/2021, patient seen eval examined in follow-up, respiratory status not much change, chest x-ray reviewed possible interstitial pattern cannot be excluded, patient remains on room air as saturation 94% with stable hemodynamics, blood pressure is the 110/60, patient remains on bronchodilator continuation of home medications including liquids along with daily 6 mg of Decadron, patient has been restarted on her midodrine Patient is a 89-year-old male came into the hospital with generalized weakness and fall related to weakness, patient sees Dr. Yadav for primary care ac tivities, cagle denies any night sweats fever or chills denies any chest pain or radiation of pain, no fever no bowel or bladder related problem, patient does have cough with sputum production his labs were significant for a hemoglobin of 12.6, platelet count of 10 7000, BUN/creatinine 56/2.27, glucose is 210, troponin 0.055 0.0 6 AM 0.047, oxygen saturation is 90% to 95% room air improved to, "test came back positive, chest x-ray and rib x-ray stable pacemaker and wires no infiltrate or heart failure identified no pneumothorax, currently patient is treated with bronchodilators continuation of home medications including amiodarone and requests primary History is significant for coronary artery disease, COPD, GERD, deafness, dyslipidemia, degenerative joint disease osteoarthritis history of pneumonia and sleep apnea Past surgical history significant for a bypass surgery, cardiac cath and stent placement and hernia repair orthopedic repair history of pacemaker insertion, stents no history of smoking through abuse and substance use Objective - Vital Signs Vital signs: Vital Signs Temp 97.8 F 08/21/21 14:00 Pulse 50 L 08/21/21 14:00 Resp 16 08/21/21 14:00 BP 108/63 08/21/21 14:00 Pulse Ox 95 08/21/21 14:00 Intake & Output 08/20/21 08/21/21 08/21/21 18:59 06:59 18:59 Output Total 925 1400 750 Balance -274 -4817 -666 Output: Urine 925 1400 750 Other: Voiding Method Diaper Indwelling Catheter Indwelling Catheter Incontinent External Catheter # Bowel Movements 1 - Exam - Exam - Constitutional General appearance: average body habitus, cooperative - EENT Eyes: PERRLA Ears: bilateral: normal - Neck Carotids: bilateral: upstroke normal Thyroid: bilateral: normal size - Respiratory Respiratory: bilateral: CTA - Cardiovascular Rhythm: regular Heart sounds: normal: S1, S2 - Gastrointestinal General gastrointestinal: soft - Neurologic Neurologic: CNII-XII intact - Musculoskeletal Musculoskeletal: gait normal, generalized weakness, strength equal bilaterally - Psychiatric Psychiatric: A&O x's 3, appropriate affect, intact judgment & insight - Labs CBC & Chem 7: 08/21/21 06:13 08/21/21 06:13 Labs: Abnormal Lab Results - Last 24 Hours (Table) 08/20/21 08/20/21 08/21/21 Range/Units 16:42 20:46 06:13 WBC 1.67 L (4.50-10.00) X 10*3/uL RBC 2.80 L (4.40-5.60) X 10*6/uL Hgb 8.4 L (13.0-17.0) g/dL Hct 27.6 L (39.6-50.0) % MCV 98.6 H (80.0-97.0) fL MCHC 30.4 L (32.0-37.0) g/dL RDW 16.3 H (11.5-14.5) % Plt Count 39 L (140-440) X 10*3/uL Plt Count Comment A Neutrophils # 1.45 L (1.80-7.70) X 10*3/uL Lymphocytes # 0.09 L (0.90-5.00) X 10*3/uL Monocytes # 0.13 L (0.20-1.00) X 10*3/uL Eosinophils # 0 L (0.04-0.35) X 10*3/uL Immature Plt Fraction 8.7 H (1.1-6.1) % Sodium (135-145) mmol/L BUN (9.0-27.0) mg/dL Creatinine (0.6-1.5) mg/dL Est GFR (CKD-EPI)AfAm (60.0-200.0) Est GFR (CKD-EPI)NonAf (60.0-200.0) BUN/Creatinine Ratio (12.00-20.00) Ratio Glucose (70-110) mg/dL POC Glucose (mg/dL) 270 H 250 H (75-99) mg/dL Calcium (8.7-10.3) mg/dL AST (14-35) U/L ALT (10-49) U/L Total Protein (6.2-8.2) g/dL Albumin (3.8-4.9) g/dL 08/21/21 08/21/21 08/21/21 Range/Units 06:13 06:50 11:37 WBC (4.50-10.00) X 10*3/uL RBC (4.40-5.60) X 10*6/uL Hgb (13.0-17.0) g/dL Hct (39.6-50.0) % MCV (80.0-97.0) fL MCHC (32.0-37.0) g/dL RDW (11.5-14.5) % Plt Count (140-440) X 10*3/uL Plt Count Comment Neutrophils # (1.80-7.70) X 10*3/uL Lymphocytes # (0.90-5.00) X 10*3/uL Monocytes # (0.20-1.00) X 10*3/uL Eosinophils # (0.04-0.35) X 10*3/uL Immature Plt Fraction (1.1-6.1) % Sodium 146 H (135-145) mmol/L BUN 141.0 H* (9.0-27.0) mg/dL Creatinine 1.9 H (0.6-1.5) mg/dL Est GFR (CKD-EPI)AfAm 35.7 L (60.0-200.0) Est GFR (CKD-EPI)NonAf 30.8 L (60.0-200.0) BUN/Creatinine Ratio 74.21 H (12.00-20.00) Ratio Glucose 160 H (70-110) mg/dL POC Glucose (mg/dL) 200 H 226 H (75-99) mg/dL Calcium 8.3 L (8.7-10.3) mg/dL AST 65 H (14-35) U/L ALT 94 H (10-49) U/L Total Protein 4.3 L (6.2-8.2) g/dL Albumin 2.7 L (3.8-4.9) g/dL Assessment and Plan Assessment: Acute hypoxic history failure Acute on chronic kidney disease Thrombocytopenia Generalized weakness Fall related to weakness Acute on chronic kidney injury COVID-19 infection Bilateral mild pleural effusion interventional radiology felt not safe and small in amount we'll continue to monitor and observe Intermittent hemoptysis, improving and resolved GERD BPH Dyslipidemia Coronary artery disease with history of CABG and stent placement Plan: Continue taper down the oxygen as tolerated Computed tomography scan of the chest reviewed Continue bronchodilators Reviewed results of sputum for Gram stain and culture Continue deep breathing sense incentive spirometry PT OT evaluation ECF/rehab evaluation for placement Renal functions remain elevated but stable Long-term prognosis poor Time with Patient: Greater than 30
[2021-08-21 16:30] LABS: Glucose,Whole Blood 231 mg/dL (75-99)
--- NOTE | 2021-08-21 18:09 | PN ---
PROGRESS NOTE Patient is seen for followup for acute kidney injury. The patient's renal function continues to improve. He is currently sitting up in bed, not in any acute distress. PHYSICAL EXAMINATION: This morning blood pressure was 108/51, heart rate 51 per minute. He is afebrile. Examination of lower extremity shows edema 1+ bilaterally. BATCH FREEZER exam grossly intact. Physical therapy will be working with the patient. LABS: Reviewed. Sodium 146, potassium 4.0, BUN 141, creatinine 1.9. ASSESSMENT: 1. Acute kidney injury. Renal function continues to improve. The patient was started on D5W yesterday due to due to hypernatremia and sodium of 150, this has improved and the D5W is discontinued. Lasix has also been decreased. 2. Hypernatremia, improved with free water supplementation. 3. COVID pneumonia, currently stable. 4. Congestive heart failure exacerbation with significant lower extremity edema, now improved. No significant respiratory symptoms. The edema seems to have improved as well. PLAN: Encourage increased free water. Continue with the D5W for one more day and decrease IV Lasix. Repeat labs in a.m. MMODL / IJN: [id number] /
[2021-08-21] MEDS: MONTELUKAST 10 MG TAB PO SCH (20:11)
[2021-08-21] MEDS: CHOLECALCIFEROL 25 MCG (1000 IU) TABLET PO SCH (20:11)
[2021-08-21] MEDS: ATORVASTATIN 20 MG TAB PO SCH (20:11)
[2021-08-21 21:01] LABS: Glucose,Whole Blood 201 mg/dL (75-99)
[2021-08-22] MEDS: methylPREDNISolone SOD SUCCI 40 MG/ML 1 ML VIAL IV SCH ×2 (00:52→05:36)
[2021-08-22 01:42] VITALS: PULSE 50; TEMP 98
--- NOTE | 2021-08-22 02:47 | XR ---
EXAMINATION TYPE: XR chest 1V portable DATE OF EXAM: 08/22/2021 COMPARISON: 08/17/2021 HISTORY: Short of breath TECHNIQUE: FINDINGS: There is some patchy consolidation in the lateral right lung field. Left lung is fairly patricia ar. There is no heart failure. There is left axillary pacemaker. Thoracic aorta is atheromatous. Ther e are sternal wires. IMPRESSION: There is new airspace pneumonia in the right lung compared to last exam. Cardiomegaly unc hanged. There is apparent clearing of infiltrate to large extent behind the heart in the left lower l obe compared to old exam.
[2021-08-22 03:02] LABS: ALT 80 U/L (4-49); AST 69 U/L (17-59); African American GFR (CKD) 39 (>60 ml/min/1.73 sqM); Albumin 2.4 g/dL (3.5-5.0); Albumin/Globulin Ratio 1.1; Alkaline Phosphatase 46 U/L (38-126); Anion Gap 6 mmol/L; Anisocytosis Slight; Calcium 8.1 mg/dL (8.4-10.2); Carbon Dioxide 27 mmol/L (22-30); Chloride 104 mmol/L (98-107); Globulin 2.1 g/dL; Glucose 174 mg/dL (74-99); HGB 9.3 gm/dL (13.0-17.5); MCH 31.6 pg (25.0-35.0); MCV 98.5 fL (80.0-100.0); Macrocytosis Slight; Mean Platelet Volume 11.9; Non-African American GFR(CKD) 34 (>60 ml/min/1.73 sqM); Platelet Count 39 k/uL (150-450); Potassium 3.8 mmol/L (3.5-5.1); RBC 2.95 m/uL (4.30-5.90); RDW 16.3 % (11.5-15.5); Sodium 137 mmol/L (137-145); Total Protein 4.5 g/dL (6.3-8.2)
[2021-08-22 03:04] LABS: WBC 0.4 k/uL (3.8-10.6)
[2021-08-22] MEDS ORDERED: VANCOMYCIN IV PER PHARMACY 1 EACH MISC MISCELLANE PRN (03:32)
[2021-08-22 03:34] LABS: ABG Base Excess 4.8 mmol/L; ABG HCO3 27 mmol/L (21-25); ABG PCO2 32 mmHg (35-45); ABG PH 7.54 (7.35-7.45); ABG TCO2 28 mmol/L (19-24); Allen Test Performed? Yes
[2021-08-22] MEDS ORDERED: CEFEPIME 2 GM in SODIUM CHLORIDE 0.9% 100 ML IVPB STA (03:38)
[2021-08-22 03:41] LABS: Anisocytosis (M) Present; Ovalocytes Present
--- NOTE | 2021-08-22 03:44 | P.EN ---
A- team: Indication: Hypoxemia Arrived on Scene to find: Patient on 15 L nonrebreather mask Vital signs reviewed: BP 102/74, pulse 53, SpO2 93% on 15 L nonrebreather, and temp 97.4 axillary Patient seen and examined at bedside. Patient reports feeling achy and tired. He reports overall feeling not well states that he has been feeling like this for the past few days. Reported achy abdominal pain, chest pain, leg pain. Of note, the patient has had a prolonged hospitalization of over 30 days with multiple ongoing issues including pancytopenia, kidney failure, and COVID pneumonia General: Currently ill-appearing elderly male, [no distress], [appears at stated age] Derm: [warm], [dry] Head: [atraumatic], [normocephalic], [symmetric] Eyes: [EOMI], [no lid lag], [anicteric sclera] Mouth: [no lip lesion], [mucus membranes moist] Cardiovascular: [S1S2 reg], [no murmur], [positive posterior tibial pulse bilateral], Lungs: Poor air entry bilaterally with scattered rhonchi, no wheezing , [no accessory muscle use] Abdominal: [soft], [ nontender to palpation], [no guarding], [no appreciable organomegaly] Ext: [no gross muscle atrophy], [no edema], [no contractures] Neuro: [ CN II-XI grossly intact], [no focal neuro deficits] Psych: Lethargic, [appropriate affect] Assessment: Worsening hypoxia in patient admitted for COVID pneumonia Plan: ABG obtained and reviewed Bipap ordered Procalcitonin elevated. Concerns for hospital-acquired pneumonia with chest x- ray showing new infiltrate Stat doses of cefepime and vancomycin ordered D-dimer within normal limits Notified: Primary team notified by the RN A Total of 35 minutes of critical care time was spent on the complex care of this patient.
[2021-08-22] MEDS ORDERED: VANCOMYCIN 1,500 MG in SODIUM CHLORIDE 0.9% 250 ML IVPB ONE (03:45)
[2021-08-22 03:51] LABS: Blood Urea Nitrogen 145 mg/dL (9-20)
[2021-08-22 04:25] VITALS: RESP 20
[2021-08-22 04:57] LABS: ABG PO2 45 mmHg (83-108)
[2021-08-22] MEDS ORDERED: ATROPINE OPHTH SOLN 1% 5ML BTL SUBLINGUAL PRN (05:26)
[2021-08-22] MEDS ORDERED: GLYCOPYRROLATE 0.2 MG/ML 2 ML VIAL IVP PRN (05:26)
[2021-08-22] MEDS ORDERED: ARTIFICIAL TEARS-HYPROMELLOSE DROPS 15 ML BTL BOTH EYES PRN (05:26)
[2021-08-22] MEDS ORDERED: LORazepam 2 MG/ML INJ IV PRN (05:26)
[2021-08-22] MEDS ORDERED: MORPHINE SULFATE 2 MG/ML SYRINGE IV PRN (05:26)
[2021-08-22] MEDS ORDERED: MORPHINE SULFATE (100 MG/2 ML) 100 MG in SODIUM CHLORIDE 0.9% 100 ML IV SCH (05:30)
[2021-08-22 06:12] VITALS: BP 54/28
[2021-08-22] MEDS ORDERED: FUROSEMIDE 10 MG/ML 2 ML VIAL IV SCH (09:00)
== END 2021-08-22 08:54 | disposition expired | DRG 177 ==
LOC: EC 19:26 → 3SCARD 07-22 01:57 → OBSVTOIN 07-23 09:25 → 4SSUR 07-30 21:04
PROVIDERS: ADMIT Family Medicine; ATTEND Family Medicine
PROC: XW0DXM6 Introduction of Baricitinib into Mouth and Pharynx, External Approach, New Technology Group 6 (ICD-10-PCS; 2021-08-13)
PROC: 30233R1 Transfusion of Nonautologous Platelets into Peripheral Vein, Percutaneous Approach (ICD-10-PCS; principal; 2021-08-14)
PROC: 05HY33Z Insertion of Infusion Device into Upper Vein, Percutaneous Approach (ICD-10-PCS; 2021-08-18)
PROC: 5A09357 Assistance with Respiratory Ventilation, Less than 24 Consecutive Hours, Continuous Positive Airway Pressure (ICD-10-PCS; 2021-08-22)
DX: U07.1 COVID-19 (principal); J15.6 Pneumonia due to other Gram-negative bacteria; J12.82 Pneumonia due to coronavirus disease 2019; I50.33 Acute on chronic diastolic (congestive) heart failure; J96.21 Acute and chronic respiratory failure with hypoxia; N17.0 Acute kidney failure with tubular necrosis; E44.0 Moderate protein-calorie malnutrition; E87.0 Hyperosmolality and hypernatremia; G93.49 Other encephalopathy; I13.0 Hypertensive heart and chronic kidney disease with heart failure and stage 1 through stage 4 chronic kidney disease, or unspecified chronic kidney disease; J44.0 Chronic obstructive pulmonary disease with (acute) lower respiratory infection; I48.19 Other persistent atrial fibrillation; I42.9 Cardiomyopathy, unspecified; E87.2 Acidosis; D61.818 Other pancytopenia; R04.2 Hemoptysis; J90 Pleural effusion, not elsewhere classified; I25.10 Atherosclerotic heart disease of native coronary artery without angina pectoris; I25.2 Old myocardial infarction; K21.9 Gastro-esophageal reflux disease without esophagitis; H91.90 Unspecified hearing loss, unspecified ear; D69.59 Other secondary thrombocytopenia; E11.22 Type 2 diabetes mellitus with diabetic chronic kidney disease; E78.5 Hyperlipidemia, unspecified; E86.0 Dehydration; E87.5 Hyperkalemia; F03.90 Unspecified dementia, unspecified severity, without behavioral disturbance, psychotic disturbance, mood disturbance, and anxiety; G47.33 Obstructive sleep apnea (adult) (pediatric); H00.019 Hordeolum externum unspecified eye, unspecified eyelid; I49.8 Other specified cardiac arrhythmias; L89.312 Pressure ulcer of right buttock, stage 2; L89.322 Pressure ulcer of left buttock, stage 2; M19.91 Primary osteoarthritis, unspecified site; N18.32 Chronic kidney disease, stage 3b; N40.1 Benign prostatic hyperplasia with lower urinary tract symptoms; R04.0 Epistaxis; D69.1 Qualitative platelet defects; D63.8 Anemia in other chronic diseases classified elsewhere; R13.10 Dysphagia, unspecified; R33.8 Other retention of urine; R07.81 Pleurodynia; M19.90 Unspecified osteoarthritis, unspecified site; E87.70 Fluid overload, unspecified; Z95.810 Presence of automatic (implantable) cardiac defibrillator; Z95.5 Presence of coronary angioplasty implant and graft; Z95.1 Presence of aortocoronary bypass graft; Z95.0 Presence of cardiac pacemaker; Z85.828 Personal history of other malignant neoplasm of skin; Z83.3 Family history of diabetes mellitus; Z82.5 Family history of asthma and other chronic lower respiratory diseases; Z82.49 Family history of ischemic heart disease and other diseases of the circulatory system; Z80.9 Family history of malignant neoplasm, unspecified; Z79.899 Other long term (current) drug therapy; Z79.84 Long term (current) use of oral hypoglycemic drugs; Z79.52 Long term (current) use of systemic steroids; Z79.01 Long term (current) use of anticoagulants
CPT/HCPCS: 36410; 36415; 36600; 71045; 71250; 74230; 76604; 76770; 76937; 80048; 80053; 80202; 81003; 82565; 82607; 82728; 82746; 82784; 82805; 83540; 83550; 83605; 83615; 83625; 83735; 83880; 83883; 83921; 84145; 84165; 84484; 85025; 85379; 85384; 85610; 85652; 86022; 86038; 86140; 86334; 86431; 86704; 86706; 86850; 86900; 86901; 87070; 87205; 87340; 87635; 93005; 93306; 94640; 94660; 94760; 99285